=== PATIENT | male | born 1955 | race African-American/Black ===

== ENCOUNTER 2017-06-26 14:01 | Inpatient (IN) | payer OTHER ==
[2017-06-26] MEDS ORDERED: D50W 25 GM/50 ML SYRINGE IV PRN (15:33)
[2017-06-26] MEDS ORDERED: GLUCAGON 1 MG/VIAL IM PRN (15:33)
--- NOTE | 2017-06-26 15:47 | P.HP ---
Certification for Inpatient Patient admitted to: Inpatient With expected LOS: >2 Midnights Patient will require the following post-hospital care: None Practitioner: I am a practitioner with admitting privileges, knowledge of patient current condition, hospital course, and medical plan of care. Services: Services provided to patient in accordance with Admission requirements found in Title 42 Section 412.3 of the Code of Federal Regulations Patient History Date of Service: 06/26/17 Primary Care Provider: Jarrett Reason for admission: Chf exacerbation History of Present Illness: Patient is an office patient of [facility]. He has a history of diabetes, previous cva and HTN, and lower gi bleed. He has been having swelling of his entire body for the past 2 weeks. Since he has difficulty with transportation he was not able to make it in. He has not been able to lace up his shoes due to the swelling. His face is swollen. The patient has swelling of the scrotum as well. He has not been able to lie on his right side without shortness of breath. Allergies Corticosteroids (Glucocorticoids) Allergy (Verified 06/13/16 12:03) Anaphylaxis Home Medications: Amlodipine Besylate [Amlodipine Besylate] 10 mg PO DAILY 06/26/17 Gabapentin [Neurontin*] 300 mg PO TID 06/26/17 Spironolactone [Spironolactone] 25 mg PO DAILY 06/26/17 - Past Medical/Surgical History Diabetic: Yes -: HTN -: IDDM -: Arthritis -: high cholesterol -: cva- 2014 -: colonoscopy -: EGD - Family History Father -: Heart disease Mother -: Cancer - Social History Alcohol use: Yes CD- Drugs: Yes Caffeine use: Yes Review of Systems General: Weakness Respiratory: SOB with Excertion Cardiovascular: Chest Pain, Orthopnea, Edema (3+), Light Headedness Physical Examination - Physical Exam General: Alert, In no apparent distress, Moderate distress HEENT: Atraumatic, PERRLA, Mucous membr. moist/pink, EOMI, Sclerae nonicteric Neck: Supple, 2+ carotid pulse no bruit, No LAD, Without JVD or thyroid abnormality Respiratory: Clear to auscultation bilaterally, Diminished (in the lower lung field) Cardiovascular: Regular rate/rhythm, Normal S1 S2, Edema (of the face and legs) Gastrointestinal: Normal bowel sounds, No tenderness Musculoskeletal: No tenderness Integumentary: No rashes Neurological: Normal gait, Normal speech, Normal strength at 5/5 x4 extr, Normal tone, Normal affect Lymphatics: No axilla or inguinal lymphadenopathy Assessment and Plan - Problems (Diagnosis) (1) CHF (congestive heart failure) Onset Date: 04/08/17 Current Visit: No Status: Acute Plan: will need to check an echo. Start on 40units of lasix. Once we know his kidney function we can intensify diuretics. Will check an echocardiogram and consult Dr. Fofana. (2) Hyperlipidemia Current Visit: Yes Status: Acute Plan: continue atorvastatin. Will check a lipid profile. Qualifiers: Hyperlipidemia type: pure hypercholesterolemia Qualified Code(s): E78.00 - Pure hypercholesterolemia, unspecified; E78.0 - Pure hypercholesterolemia (3) Neuropathy Current Visit: Yes Status: Acute Plan: Most likely secondary to diabetes. Continue gabapentin (4) Diabetes Onset Date: 06/14/16 Current Visit: No Status: Acute Plan: Has been on levemir. Will start him on home dose. Add an insulin sliding scale. Check an a1c as we do not have a current one on file. 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
[2017-06-26] MEDS: INSULIN -REGULAR HUMAN 50 UNIT/0.5 ML ML SQ SCH ×2 (16:30→21:00)
--- NOTE | 2017-06-26 16:32 | RAD REPORT ---
EXAM DESCRIPTION: Justyn Pa And Lat (2 Views)06/26/2017 4:18 pm CLINICAL HISTORY: Shortness of breath COMPARISON: March 2017 FINDINGS: A small to moderate right pleural effusion is present with right basilar atelectasis. Mil d bilateral pulmonary opacities are seen. The heart is mildly enlarged. IMPRESSION: CHF
[2017-06-26] MEDS: ENOXAPARIN 30 MG/0.3 ML SQ SCH ×2 (17:00→17:10)
[2017-06-26] MEDS: FUROSEMIDE 40 MG/4 ML VIAL IV SCH (17:10)
[2017-06-26 17:14] LABS: Absolute Monocytes 0.7 K/uL (0.1-1.3); Hematocrit 18.2 % (39.6-49.0); MCH 21.1 pg (27.0-35.0); MCV 71.8 fL (80-100); MPV 9.5 fL (7.6-11.3); RBC Red Blood Cell Count 2.54 M/uL (4.33-5.43)
--- NOTE | 2017-06-26 17:27 | EKG ---
Test Date: 2017-06-26 Test Time: 15:51:40 Provider Relations Consultant: DOM MEASUREMENT RESULTS: Intervals: Rate: 92 DE: 174 QRSD: 86 QT: 366 QTc: 452 [place]: P: 58 DE: 174 QRS: -31 T: 75 INTERPRETIVE STATEMENTS: Normal sinus rhythm Left axis deviation Abnormal ECG Compared to ECG 04/04/2017 23:09:03 No significant changes Electronically Signed On 06-26-17 17:26:27 FLOOR GRINDER by Justo Fofana
[2017-06-26 17:40] VITALS: BMI 29.7
[2017-06-26 18:21] LABS: Urine Appearance CLEAR; Urine Bilirubin NEGATIVE (NEG); Urine Blood 1+ (NEG); Urine Color YELLOW; Urine Glucose NEGATIVE (NEG); Urine Microscopic Reflex ORDER UMIC; Urine Protein 3+ (NEG); Urine Specific Gravity 1.015 (1.005-1.030)
[2017-06-26 18:21] LABS: RBC Red Blood Cell Count 2.55 M/uL (4.33-5.43)
[2017-06-26] MEDS: HYDRALAZINE HCL 20 MG/ML VIAL IV PRN (18:32)
[2017-06-26 18:37] LABS: Barbiturates NEGATIVE; Benzodiazepines NEGATIVE; Cocaine POSITIVE; METHAMPHETAM NEGATIVE; Opiates NEGATIVE; Phencyclidine NEGATIVE; THC Cannibis NEGATIVE
[2017-06-26 19:13] LABS: Urine Bacteria <20 /HPF (NONE SEEN); Urine Culture Reflex Order NOT NEEDED; Urine RBC <5 /HPF (NONE SEEN)
[2017-06-26 19:42] LABS: Potassium 3.9 mEq/L (3.6-5.0)
[2017-06-26 19:45] LABS: Albumin 2.7 g/dL (3.2-5.5); Bilirubin Total 0.5 mg/dL (0.3-1.2); Protein, Total 6.1 g/dL (6.0-8.3)
[2017-06-26] MEDS ORDERED: NA CHLORIDE 0.9% 250 ML ONE (19:58)
[2017-06-26 20:23] LABS: Anisocytosis 2+; Blood Morphology Comment NOTED (NOT SEEN); Hypochromasia 2+; Platelet Estimate ADEQ; Poikilocytosis 1+; Polychromasia SLIGHT
--- NOTE | 2017-06-26 22:17 | RAD REPORT ---
EXAM DESCRIPTION: CT - Abdomen Pelvis Wo Contrast - 06/26/2017 10:08 pm CLINICAL HISTORY: Abdominal pain, CHF, GI bleed COMPARISON: May 2016 TECHNIQUE: Axial [address] imaging of the abdomen and pelvis was performed without IV contrast. No IV contrast was given because of allergy, abnormal renal function, patient refusal or physician re quest. Oral contrast was given. All CT scans are performed using dose optimization technique as appropriate and may include automated exposure control or mA/KV adjustment according to patient size. FINDINGS: Cardiomegaly is present without pericardial effusion. Moderate right-sided and small left- sided pleural effusions are present incompletely assessed. No focal liver lesion on noncontrast imaging. Spleen and pancreas also without acute finding on nonco ntrast imaging. Gallbladder assessment is limited. Gallbladder is contracted. No biliary tree dilatat ion. Gallstones can be occult. No hydronephrosis or suspicious renal mass. No significant adrenal finding. Isodense renal masses an d pyelonephritis cannot be excluded in the absence of IV contrast. Urinary bladder is fully contracte d around a [place] catheter. No dilated bowel loops or bowel wall thickening. No free air, free fluid or pneumatosis. Patient has a very pronounced fluid retention pattern in the peritoneal and sub cutaneous fatty tissues. No herni a, mass or bulky lymphadenopathy. No suspicious bony findings. IMPRESSION: Extensive fluid retention in the subcutaneous fatty tissues. Peritoneal fluid retention is also present. Patient has moderate right-sided and small left-sided pleural effusions. No acute GI process identifiable. No hydronephrosis. Isodense masses and pyelonephritis are not excluded. Urinary bladder is fully cont racted.
--- NOTE | 2017-06-26 22:46 | CON ---
Date of Consultation: 06/26/2017 Reason For Consultation: Anemia. Brief History Of Present Illness: The patient is a 61-year-old gentleman who presen ts from Dr. Farias's office with concerning findings of significant anemia discovered on routine jeramy p. Dr. Farias had seen the patient in this clinic earlier today and had noted the patient had signifi cant swelling consistent with an anasarca. The patient admits to taking crack cocaine quite heavily over the past few years. He has a history of diabetes, hypertension, arthritis, partial cavitary narda g mass, which was believed to be benign, who has had multiple episodes of recurrent severe anemia, ma naged by Dr. Jung. He denies any evidence of bleeding per rectum. No nausea, no vomiting. He martínez s have a remote history of hemoptysis in the past, but none in the past year or longer. He has had a n endoscopy and colonoscopy by his belief approximately [address] Jung, which did not dis cover any acute cause of gastrointestinal bleeding at that time. He has had difficulty with complian ce due to his drug history and difficulty getting to Dr. Farias's office for care and workup. During my examination, he admits to some bilateral lower extremity pain related to the swelling and some gen eralized abdominal pain due to the swelling as well. He states that he has been constipated and has not had a bowel movement in approximately 8 days prior to today. He did have a large voluminous mando l movement today at Dr. Farias's office, which was diarrhea by his report. He denies any blood in the stool at that time. He states he still feels better but continues to have some distention of his ab domen by his feeling. Past Medical History: Significant for diabetes, hypertension, arthritis, hypercholesterolemia, strok e in the past, partial cavitary lung mass, which is thought to be benign by pulmonary workup. Past Surgical History: Includes colonoscopy and EGD as of 1 year ago approximately. Family History: His father had heart disease. Mother had cancer. He admits to alcohol use. He den ies smoking cigarettes and does admit to crack cocaine use regularly. He states that the last time h e smoked was he believes about a week ago, but is unclear on the exact date. Review of Systems: He has some weakness and some shortness of breath with exertion and some lightheadedness with ambulat ion. Other than HPI, the remainder of the review of systems is negative. Physical Examination: Vital Signs: At the time of my examination, his vital signs are a temperature of 98.4, pulse is 86, respiratory rate 18, blood pressure 191/105. His oxygen saturations 100% on room air. General: He is awake, alert, and oriented. Psychiatric: He is appropriate and conversive. HEENT: He is normocephalic. His sclerae are anicteric. His mucous membranes are moist. His oropha rynx is clear. Neck: Supple. No JVD. Chest: Normal expansion and excursion. Cardiovascular: Regular rate and rhythm. Pulmonary: Decreased breath sounds bilaterally and there are fine rales bilaterally. Abdomen: Soft, mild distention. There is swelling from his nipple line down to the remainder of his body consistent with anasarca. The remainder of his abdominal exam is essentially benign. Extremities: He has significant pitting edema greater than 2+ pitting edema in bilateral lower extre mities extending all the way to the mid to upper abdomen and lower chest area. Skin: His skin is otherwise without lesions or rashes. Allergies: TO GLUCOCORTICOIDS/CORTICOSTEROIDS. Home Medications: Include amlodipine, Neurontin, and spironolactone. Laboratory Data: Reveals a white blood cell count of 9.6, hemoglobin is 5.4, hematocrit of 18.2. Hi s MCV is 71.8 that is low. His platelet count is 212. His neutrophils were pending at the time of t he examination. His percent retic was 2.83, that is on the high side. The remainder of his labs wer e post glucose of 118. Troponin I less than 0.03. His UA showed 3+ protein and currently, the remai nder is still pending. He is positive for his cocaine screen on this admission. He had imaging perf ormed which included a chest x-ray which was officially read as CHF, [id number] right pleural effusions present with right basilar atelectasis, mild bilateral pulmonary opacity seen. The heart i s mildly enlarged, consistent with CHF. Assessment And Plan: This is a 61-year-old gentleman with multiple medical problems , who presents with anasarca and abdominal pain and significant anemia. 1.Transfuse packed red blood cells and check serial H and Hs. He remains hemodynamically stable at this time and while he is receiving a large volume of blood products, he will likely require Lasix to help diurese much of the volume as he appears to have congestive heart failure with overload at this time. I recommend workup from a medical standpoint to better evaluate his cardiac status beginning with an EKG and echo. 2.Labs will be drawn including a CMP. 3.I recommend a CT abdomen and pelvis to evaluate the abdomen at this time, as he has a significant drop in his hemoglobin. This might be due to an intraabdominal bleed as currently unknown should his creatinine be in the range where it can be checked safely with contrast would be preferable. 4.Serial abdominal exams. 5.Continue workup for anemia. After he is resuscitated and has some baseline information, we will c onsider endoscopy at that time should we have any evidence of gastrointestinal source for his bleedin g. I have explained the risks, benefits, and alternatives of the above stated plan. The patient agr ees to proceed as indicated. Thank you for this interesting consult. AARON/ZULEIMA Voice ID: [id number] Report ID: [id number]
[2017-06-26] MEDS: ATORVASTATIN 80 MG TAB PO SCH (23:00)
[2017-06-26] MEDS: GABAPENTIN 300 MG CAP PO SCH (23:00)
[2017-06-27] MEDS: HYDRALAZINE HCL 20 MG/ML VIAL IV PRN ×4 (00:02→20:53)
[2017-06-27] MEDS ORDERED: FUROSEMIDE 40 MG/4 ML VIAL IV ONE (03:38)
[2017-06-27 05:26] LABS: Hematocrit 19.2 % (39.6-49.0)
[2017-06-27] MEDS ORDERED: NA CHLORIDE 0.9% 250 ML ONE ×3 (06:11→15:41)
[2017-06-27 07:04] LABS: Absolute Lymphocytes (CBC) 1.4 K/uL (0.7-4.9); Absolute Monocytes 0.7 K/uL (0.1-1.3); Absolute Neutrophil 6.7 K/uL (1.8-8.0); Basophils % 0.4 % (0-1.3); Eosinophils % 2.8 % (0-4.4); Lymphocytes % 15.7 % (15.3-44.8); MCH 22.8 pg (27.0-35.0); MCV 72.5 fL (80-100); MPV 9.7 fL (7.6-11.3); RBC Red Blood Cell Count 2.54 M/uL (4.33-5.43)
[2017-06-27 07:05] LABS: Hematocrit 18.4 % (39.6-49.0)
[2017-06-27 07:19] LABS: Albumin 2.6 g/dL (3.2-5.5); Bilirubin Total 0.4 mg/dL (0.3-1.2); Potassium 4.3 mEq/L (3.6-5.0); Protein, Total 5.7 g/dL (6.0-8.3)
[2017-06-27 07:25] LABS: Thyroid Stimulating Hormone 5.98 uIU/mL (0.34-5.60)
[2017-06-27] MEDS ORDERED: PANTOPRAZOLE 40MG TABLET PO SCH (07:30)
[2017-06-27] MEDS: INSULIN -REGULAR HUMAN 50 UNIT/0.5 ML ML SQ SCH ×4 (07:30→21:00)
[2017-06-27] MEDS: INSULIN DETEMIR 100 UNIT/1 ML INSULIN SQ SCH (08:00)
[2017-06-27] MEDS: SPIRONOLACTONE 25 MG TABLET PO SCH (08:12)
[2017-06-27] MEDS: GABAPENTIN 300 MG CAP PO SCH ×3 (08:14→20:53)
[2017-06-27] MEDS: AMLODIPINE 10 MG TAB PO SCH (08:15)
[2017-06-27] MEDS: FUROSEMIDE 40 MG/4 ML VIAL IV SCH (08:26)
--- NOTE | 2017-06-27 09:09 | P.PN ---
Subjective Date of Service: 06/27/17 Primary Care Provider: Jarrett Chief Complaint: Chf exacerbation Subjective: New changes (Patinet is complainint of leg pain) Review of Systems 10-point ROS is otherwise unremarkable Musculoskeletal: Leg Pain (swollen legs) Physical Examination - Vital Signs Temperature: 99.4 F Blood Pressure: 194/96 Pulse: 100 Respirations: 16 Pulse Ox (%): 95 - Physical Exam General: Alert, In no apparent distress HEENT: Atraumatic, PERRLA, EOMI Neck: Supple, JVD not distended Respiratory: Clear to auscultation bilaterally, Normal air movement Cardiovascular: Regular rate/rhythm, Normal S1 S2, Edema (2+) Gastrointestinal: Normal bowel sounds, No tenderness Musculoskeletal: No tenderness Integumentary: No rashes Neurological: Normal speech, Normal tone, Normal affect Lymphatics: No axilla or inguinal lymphadenopathy - Studies Laboratory Data (last 24 hrs) 06/27/17 05:55: Sodium 141, Potassium 4.3, BUN 25 H, Creatinine 1.86 H, Glucose 121 H, Total Bilirubin 0.4, AST 61 H, ALT 71 H, Alkaline Phosphatase 69, Triglycerides 51, Cholesterol 104, HDL Cholesterol 41, Cholesterol/HDL Ratio 2.54, Lipase 22 06/27/17 05:55: WBC 9.2, Hgb 5.8 L*, Hct 18.4 L*, Plt Count 180 06/27/17 05:00: Triglycerides Cancelled, Cholesterol Cancelled, HDL Cholesterol Cancelled, Cholesterol/HDL Ratio Cancelled, Lipase Cancelled 06/27/17 04:19: Hgb 5.9 L*, Hct 19.2 L* 06/26/17 19:00: Sodium 139, Potassium 3.9, BUN 23 H, Creatinine 1.89 H, Glucose 149 H, Total Bilirubin 0.5, AST 77 H, ALT 85 H, Alkaline Phosphatase 78 06/26/17 16:54: Troponin I < 0.03 06/26/17 16:54: WBC 9.6, Hgb 5.4 L*, Hct 18.2 L*, Plt Count 212 Assessment & Plan - Problems (Diagnosis) (1) CHF (congestive heart failure) Onset Date: 04/08/17 Current Visit: No Status: Acute Plan: Patient has been getting lasix with the blood. Has a echo in Which showed ef of 55% and pulm htn. However he has been using cocaine recently. The patient states that the last use was about 9 days ago. Qualifiers: Qualified Code(s): I50.9 - Heart failure, unspecified (2) Hyperlipidemia Current Visit: Yes Status: Acute Plan: continue atorvastatin. Will check a lipid profile. Qualifiers: Hyperlipidemia type: pure hypercholesterolemia Qualified Code(s): E78.00 - Pure hypercholesterolemia, unspecified; E78.0 - Pure hypercholesterolemia (3) Neuropathy Current Visit: Yes Status: Acute Plan: Most likely secondary to diabetes. Continue gabapentin (4) Diabetes Onset Date: 06/14/16 Current Visit: No Status: Acute Plan: Has been on levemir. Will start him on home dose. Add an insulin sliding scale. Check an a1c as we do not have a current one on file. Qualifiers: Diabetes mellitus type: type 2 Diabetes mellitus complication status: without complication Diabetes mellitus intermediate insulin use: with intermediate use Qualified Code(s): E11.9 - Type 2 diabetes mellitus without complications ; Z79.4 - shelter (current) use of insulin (5) Acute renal failure Current Visit: Yes Status: Acute Plan: Will monitor his creatine for now it is staying stable. However we do have to diuresis the patient in the coming days. Qualifiers: Acute renal failure type: unspecified Qualified Code(s): N17.9 - Acute kidney failure, unspecified (6) Anemia Onset Date: 09/05/15 Current Visit: No Status: Acute Plan: Will transfuse him again 2 more units. Have discussed the patient with Dr. Tan. Possible scope today. Qualifiers: Iron deficiency anemia type: unspecified iron deficiency (7) Cocaine abuse Onset Date: 04/08/17 Current Visit: No Status: Chronic Discharge Plan: Home Plan to discharge in: Greater than 2 days - Code Status/Comfort Care Code Status Assessed: No Code Status: Full Code Physician Review: Patient Assessed, Agree with Above Assessment and Plan Critical Care: No Time Spent Managing Pts Care (In Minutes): 35
[2017-06-27] MEDS ORDERED: NA CHLORIDE 0.9% 1,000 ML ONE (09:23)
[2017-06-27] MEDS ORDERED: LIDOCAINE 1% MPF 5 ML VIAL ONE (09:41)
[2017-06-27] MEDS ORDERED: GLYCOPYRROLATE 0.2 MG/ML SYR ONE ×2 (09:41)
[2017-06-27] MEDS ORDERED: ATROPINE SULFATE 1 MG/ML INJ ONE (09:41)
[2017-06-27] MEDS ORDERED: EPHEDRINE SULF 50 MG/ML SYR ONE (09:41)
[2017-06-27] MEDS ORDERED: PROPOFOL 200 MG/20 ML VIAL IV ONE (09:41)
[2017-06-27] MEDS ORDERED: Phenylephrine HCl 10 MG/ML 1 ML VIAL ONE (09:41)
[2017-06-27] MEDS ORDERED: NA CHLORIDE 0.9% 500 ML ONE (09:43)
--- NOTE | 2017-06-27 10:28 | CON ---
History Of Present Illness: Mr. Trejo has profound microcytic anemia. It is suspected to be due to a GI bleed. Bone marrow disease is not suspected. Bleeding source has not been identified. The sander logan came to the hospital with swelling, dyspnea, feeling terrible. He is found to have a lot of ed rhonda. He was found to have a hemoglobin of 5.4. It was about a month ago he had a transfusion. No i nterval hemoglobin since then. He has had his GI tract looked at before, but I think it needs to be done again. Dr. Farias is feeling that. Past Medical History: The patient has a history of diabetes, hypertension, and stroke. He does not have a history of congestive heart failure or coronary heart disease. He denies paroxysmal nocturnal dyspnea, edema of the abdomen, thighs, buttocks, scrotum, or legs. Medications: He takes amlodipine, gabapentin, spironolactone. Does not require any agents to contro l blood sugar. Physical Examination: Vital Signs: 5 feet 11 inches, 213 pounds. HEENT: Normal. Mild periorbital edema. Lungs: Clear. Heart: Regular rate and rhythm. No significant gallop or murmur or rub. Abdomen: Soft. Extremities: 2+ edema now. I think his weight has gone down a lot. Assessment And Plan: I think doing an echocardiogram is very likely to be helpful figuring out what is wrong with him. It will be done later today. At some point, he should probably have a nuclear st ress test. He does not have anything to suggest that needs to be done right at the moment. ARMEN Voice ID: [id number] Report ID: [id number]
[2017-06-27] MEDS: PANTOPRAZOLE INJ 80 MG in NA CHLORIDE 0.9% 250 ML IV SCH ×2 (12:30→21:04)
[2017-06-27 12:43] LABS: Hematocrit 21.4 % (39.6-49.0)
[2017-06-27] MEDS: MORPHINE 5 MG/ML VIAL IV PRN ×2 (13:37→21:04)
[2017-06-27] MEDS ORDERED: NA CHLORIDE 0.9% 0 ML ONE (15:53)
--- NOTE | 2017-06-27 17:04 | ECHO ---
HEIGHT: 5 ft 11 in WEIGHT: 213 lb 4.8 oz DATE OF STUDY: 06/27/[address]: Gerardo Farias MD 2-DIMENSIONAL: YES M.MODE: YES DOPPLER: YES COLOR FLOW: YES TDS: PORTABLE: DEFINITY: BUBBLE STUDY: DIAGNOSIS: CONGESTIVE HEART FAILURE CARDIAC HISTORY: CATHERIZATION: NO SURGERY: NO PROSTHETIC VALVE: NO PACEMAKER: NO MEASUREMENTS (cm) DIASTOLIC (NORMALS) SYSTOLIC (NORMALS) IVSd 1.4 (0.6-1.2) LA Diam 4.7 (1.9-4.0) LVEF 60-65% LVIDd 5.0 (3.5-5.7) LVIDs 3.8 (2.0-3.5) %FS 26% LVPWd 1.3 (0.6-1.2) Ao Diam 3.3 (2.0-3.7) 2 DIMENSIONAL ASSESSMENT: RIGHT ATRIUM: NORMAL LEFT ATRIUM: DILATED RIGHT VENTRICLE: NORMAL LEFT VENTRICLE: LEFT VENTRICULAR HYPERTROPHY TRICUSPID VALVE: NORMAL MITRAL VALVE: NORMAL PULMONIC VALVE: NORMAL AORTIC VALVE: NORMAL PERICARDIAL EFFUSION: NONE AORTIC ROOT: NORMAL LEFT VENTRICULAR WALL MOTION: NORMAL DOPPLER/COLOR FLOW: MILD MITRAL AND TRICUSPID REGURGITATION. ESTIMATED RIGHT VENTRICULAR SYSTOLIC PRESSURE 45 mmHg (MILD PULMONARY HYPERTENSION). COMMENTS: NORMAL LEFT VENTRICULAR EJECTION FRACTION. LEFT VENTRICULAR HYPERTROPHY. DILATED LEFT ATRIUM. MILD MITRAL AND TRICUSPID REGURGITATION. MILD PULMONARY HYPERTENSION. TECHNOLOGIST: EMANUEL HERMAN
[2017-06-27] MEDS: ATORVASTATIN 80 MG TAB PO SCH (20:53)
[2017-06-27] MEDS: GUAIFENESIN/DM 5 ML UCUP PO PRN (21:05)
[2017-06-27 22:00] LABS: Hematocrit 26.6 % (39.6-49.0)
[2017-06-28 04:20] LABS: Albumin 2.5 g/dL (3.2-5.5); Bilirubin Total 0.9 mg/dL (0.3-1.2); Potassium 4.1 mEq/L (3.6-5.0); Protein, Total 6.2 g/dL (6.0-8.3)
[2017-06-28 04:23] LABS: Absolute Lymphocytes (CBC) 1.3 K/uL (0.7-4.9); Absolute Monocytes 0.9 K/uL (0.1-1.3); Absolute Neutrophil 9.3 K/uL (1.8-8.0); Basophils % 0.6 % (0-1.3); Eosinophils % 2.1 % (0-4.4); Hematocrit 25.6 % (39.6-49.0); Lymphocytes % 10.9 % (15.3-44.8); MCH 23.4 pg (27.0-35.0); MCV 75.1 fL (80-100); MPV 9.8 fL (7.6-11.3); Monocytes % 7.9 % (3.3-12.3); RBC Red Blood Cell Count 3.41 M/uL (4.33-5.43)
[2017-06-28] MEDS: HYDRALAZINE HCL 20 MG/ML VIAL IV PRN ×2 (06:01→12:19)
[2017-06-28] MEDS: MORPHINE 5 MG/ML VIAL IV PRN ×4 (06:01→19:32)
[2017-06-28] MEDS: GUAIFENESIN/DM 5 ML UCUP PO PRN ×3 (06:03→21:56)
[2017-06-28] MEDS: INSULIN -REGULAR HUMAN 50 UNIT/0.5 ML ML SQ SCH ×4 (07:30→21:57)
[2017-06-28] MEDS: PANTOPRAZOLE INJ 80 MG in NA CHLORIDE 0.9% 250 ML IV SCH ×2 (07:55→19:36)
[2017-06-28] MEDS: INSULIN DETEMIR 100 UNIT/1 ML INSULIN SQ SCH (08:00)
--- NOTE | 2017-06-28 08:33 | P.PN ---
Subjective Date of Service: 06/28/17 Primary Care Provider: Jarrett Chief Complaint: Chf exacerbation Subjective: Improving (less swelling in the legs and hands) Review of Systems 10-point ROS is otherwise unremarkable Cardiovascular: Edema Physical Examination - Vital Signs Temperature: 98 F Blood Pressure: 175/88 Pulse: 84 Respirations: 20 Pulse Ox (%): 95 - Physical Exam General: Alert, In no apparent distress HEENT: Atraumatic, PERRLA, EOMI Neck: Supple, JVD not distended Respiratory: Clear to auscultation bilaterally, Normal air movement Cardiovascular: Regular rate/rhythm, Normal S1 S2 Gastrointestinal: Normal bowel sounds, No tenderness Musculoskeletal: No tenderness Integumentary: No rashes Neurological: Normal speech, Normal tone, Normal affect Lymphatics: No axilla or inguinal lymphadenopathy - Studies Laboratory Data (last 24 hrs) 06/28/17 04:00: Hgb Cancelled, Hct Cancelled 06/28/17 03:30: Sodium 137, Potassium 4.1, BUN 22 H, Creatinine 1.82 H, Glucose 112, Total Bilirubin 0.9, AST 45 H, ALT 55, Alkaline Phosphatase 67 06/28/17 03:30: WBC 11.8 H D, Hgb 8.0 L, Hct 25.6 L, Plt Count 196 06/27/17 : Hgb Cancelled 06/27/17 21:35: Hgb 8.7 L, Hct 26.6 L D 06/27/17 12:22: Hgb 6.8 L*, Hct 21.4 L D Assessment & Plan - Problems (Diagnosis) (1) Gastric ulcer Current Visit: Yes Status: Acute Plan: Seen on EGD. Will continue on protonix drip. Will transfuse as necessary. Will continue clear liquid diet. Qualifiers: Gastric ulcer chronicity: acute Gastric ulcer complication status: unspecified whether hemorrhage or perforation present Qualified Code(s): K25.3 - Acute gastric ulcer without hemorrhage or perforation (2) CHF (congestive heart failure) Onset Date: 04/08/17 Current Visit: Yes Status: Acute Plan: Patient has been getting lasix with the blood. Has a echo in [place]. Which showed ef of 55% and pulm htn. However he has been using cocaine recently. The patient states that the last use was about 9 days ago. Qualifiers: Qualified Code(s): I50.9 - Heart failure, unspecified (3) Hyperlipidemia Onset Date: 06/27/17 Current Visit: Yes Status: Acute Plan: continue atorvastatin. Will check a lipid profile. Qualifiers: Hyperlipidemia type: pure hypercholesterolemia Qualified Code(s): E78.00 - Pure hypercholesterolemia, unspecified; E78.0 - Pure hypercholesterolemia (4) Neuropathy Onset Date: 06/27/17 Current Visit: Yes Status: Acute Plan: Most likely secondary to diabetes. Continue gabapentin (5) Diabetes Onset Date: 06/14/16 Current Visit: No Status: Acute Plan: Has been on levemir. Will start him on home dose. Add an insulin sliding scale. Check an a1c as we do not have a current one on file. 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 Have discussed the patient with Dr. Tan. Possible scope today. Qualifiers: Iron deficiency anemia type: unspecified iron deficiency (8) Cocaine abuse Onset Date: 04/08/17 Current Visit: No Status: Chronic Discharge Plan: Home Plan to discharge in: 48 Hours - Code Status/Comfort Care Code Status Assessed: No Code Status: Full Code Physician Review: Patient Assessed, Agree with Above Assessment and Plan Critical Care: No Time Spent Managing Pts Care (In Minutes): 25
[2017-06-28] MEDS: AMLODIPINE 10 MG TAB PO SCH (10:01)
[2017-06-28] MEDS: FUROSEMIDE 40 MG/4 ML VIAL IV SCH (10:01)
[2017-06-28] MEDS: SPIRONOLACTONE 25 MG TABLET PO SCH (10:01)
[2017-06-28] MEDS: GABAPENTIN 300 MG CAP PO SCH ×3 (10:01→21:56)
--- NOTE | 2017-06-28 10:16 | P.PN ---
Subjective Date of Service: 06/28/17 Primary Care Provider: Jarrett Chief Complaint: Chf exacerbation Subjective: Improving (patient has no complaints, he had a normal bowel movement ) Physical Examination - Vital Signs Temperature: 98 F Blood Pressure: 175/88 Pulse: 84 Respirations: 20 Pulse Ox (%): 95 - Physical Exam General: Alert, In no apparent distress, Cooperative Respiratory: Clear to auscultation bilaterally Gastrointestinal: Normal bowel sounds - Studies Laboratory Data (last 24 hrs) 06/28/17 04:00: Hgb Cancelled, Hct Cancelled 06/28/17 03:30: Sodium 137, Potassium 4.1, BUN 22 H, Creatinine 1.82 H, Glucose 112, Total Bilirubin 0.9, AST 45 H, ALT 55, Alkaline Phosphatase 67 06/28/17 03:30: WBC 11.8 H D, Hgb 8.0 L, Hct 25.6 L, Plt Count 196 06/27/17 : Hgb Cancelled 06/27/17 21:35: Hgb 8.7 L, Hct 26.6 L D 06/27/17 12:22: Hgb 6.8 L*, Hct 21.4 L D Assessment And Plan - Plan - continue monitoring - large gastric ulcer, continue PPI - soft diet Physician Review: Patient Assessed, Agree with Above Assessment and Plan
[2017-06-28 12:21] LABS: Hematocrit 26.7 % (39.6-49.0)
[2017-06-28] MEDS: ATORVASTATIN 80 MG TAB PO SCH (21:56)
[2017-06-29] MEDS: MORPHINE 5 MG/ML VIAL IV PRN ×6 (01:31→22:40)
[2017-06-29 04:10] LABS: Hematocrit 23.6 % (39.6-49.0); MCH 23.8 pg (27.0-35.0); MCV 75.3 fL (80-100); RBC Red Blood Cell Count 3.14 M/uL (4.33-5.43)
[2017-06-29 04:11] LABS: Absolute Monocytes 0.9 K/uL (0.1-1.3); Absolute Neutrophil 5.7 K/uL (1.8-8.0); Basophils % 0.4 % (0-1.3); Eosinophils % 3.6 % (0-4.4); Lymphocytes % 12.8 % (15.3-44.8); MPV 9.1 fL (7.6-11.3); Monocytes % 11.1 % (3.3-12.3)
[2017-06-29 04:18] LABS: Albumin 2.4 g/dL (3.2-5.5); Bilirubin Total 0.4 mg/dL (0.3-1.2); Potassium 4.2 mEq/L (3.6-5.0); Protein, Total 5.6 g/dL (6.0-8.3)
[2017-06-29] MEDS: PANTOPRAZOLE INJ 80 MG in NA CHLORIDE 0.9% 250 ML IV SCH ×2 (05:25→14:46)
[2017-06-29] MEDS: GUAIFENESIN/DM 5 ML UCUP PO PRN ×2 (05:25→12:12)
[2017-06-29] MEDS: INSULIN -REGULAR HUMAN 50 UNIT/0.5 ML ML SQ SCH ×4 (07:30→21:02)
[2017-06-29] MEDS: INSULIN DETEMIR 100 UNIT/1 ML INSULIN SQ SCH (09:13)
[2017-06-29] MEDS: GABAPENTIN 300 MG CAP PO SCH ×3 (10:41→21:02)
[2017-06-29] MEDS: FUROSEMIDE 40 MG/4 ML VIAL IV SCH (10:41)
[2017-06-29] MEDS: AMLODIPINE 10 MG TAB PO SCH (10:41)
[2017-06-29] MEDS: SPIRONOLACTONE 25 MG TABLET PO SCH (10:41)
[2017-06-29] MEDS ORDERED: CALAMINE LOTION 180ML TOP PRN (11:32)
--- NOTE | 2017-06-29 11:37 | P.PN ---
Subjective Date of Service: 06/29/17 Primary Care Provider: Jarrett Chief Complaint: Chf exacerbation Subjective: New changes (Patient's hb is dropping slightly. He is still above 7 ) Review of Systems 10-point ROS is otherwise unremarkable Integumentary: Other (itching on the back of the neck) Physical Examination - Vital Signs Temperature: 98.4 F Blood Pressure: 178/89 Pulse: 84 Respirations: 16 Pulse Ox (%): 98 - Physical Exam General: Alert, In no apparent distress HEENT: Atraumatic, PERRLA, EOMI Neck: Supple, JVD not distended Respiratory: Clear to auscultation bilaterally, Normal air movement Cardiovascular: Regular rate/rhythm, Normal S1 S2 Gastrointestinal: Normal bowel sounds, No tenderness Musculoskeletal: No tenderness Integumentary: No rashes Neurological: Normal speech, Normal tone, Normal affect Lymphatics: No axilla or inguinal lymphadenopathy - Studies Laboratory Data (last 24 hrs) 06/29/17 04:00: Hgb Cancelled, Hct Cancelled 06/29/17 03:55: Sodium 135, Potassium 4.2, BUN 25 H, Creatinine 1.87 H, Glucose 152 H, Total Bilirubin 0.4, AST 39, ALT 41, Alkaline Phosphatase 64 06/29/17 03:55: WBC 7.9 D, Hgb 7.5 L*, Hct 23.6 L, Plt Count 175 06/28/17 19:44: Hgb 7.8 L*, Hct 24.0 L 06/28/17 11:44: Hgb 8.2 L, Hct 26.7 L Assessment And Plan - Current Problems (Diagnosis) (1) Gastric ulcer Current Visit: Yes Status: Acute Plan: continue protonix drip for now. Will continue monitoring his hct. Transfuse as needed Qualifiers: Gastric ulcer chronicity: acute Gastric ulcer complication status: unspecified whether hemorrhage or perforation present Qualified Code(s): K25.3 - Acute gastric ulcer without hemorrhage or perforation (2) CHF (congestive heart failure) Onset Date: 04/08/17 Current Visit: Yes Status: Acute Plan: Patient has been getting lasix with the blood. Has a echo in Mar. Which showed ef of 55% and pulm htn. However he has been using cocaine recently. The patient states that the last use was about 9 days ago. Will restart his spirnolactone for better bp control Qualifiers: Qualified Code(s): I50.9 - Heart failure, unspecified (3) Hyperlipidemia Onset Date: 06/27/17 Current Visit: Yes Status: Acute Plan: continue atorvastatin. Will check a lipid profile. Qualifiers: Hyperlipidemia type: pure hypercholesterolemia Qualified Code(s): E78.00 - Pure hypercholesterolemia, unspecified; E78.0 - Pure hypercholesterolemia (4) Neuropathy Onset Date: 06/27/17 Current Visit: Yes Status: Acute Plan: Most likely secondary to diabetes. Continue gabapentin (5) Diabetes Onset Date: 06/14/16 Current Visit: No Status: Acute Plan: Has been on levemir. Will start him on home dose. Add an insulin sliding scale. Check an a1c as we do not have a current one on file. Qualifiers: Diabetes mellitus type: type 2 Diabetes mellitus complication status: without complication Diabetes mellitus usp insulin use: with extermination inspector use Qualified Code(s): E11.9 - Type 2 diabetes mellitus without complications ; Z79.4 - USP (current) use of insulin (6) Acute renal failure Current Visit: Yes Status: Acute Plan: Creatine is stable will continue lasix Qualifiers: Acute renal failure type: unspecified Qualified Code(s): N17.9 - Acute kidney failure, unspecified (7) Anemia Onset Date: 09/05/15 Current Visit: No Status: Acute Plan: Will transfuse him again 2 more units. Have discussed the patient with Dr. Tan. Possible scope today. Qualifiers: Iron deficiency anemia type: unspecified iron deficiency (8) Cocaine abuse Onset Date: 04/08/17 Current Visit: No Status: Chronic Plan: Have discussed with the patient at length. Unfortunately a difficulty addiction. He needs follow up and out patient services. Which he does not have the transportation to take advantage of. Discharge Plan: Home Plan to discharge in: 48 Hours - Code Status/Comfort Care Code Status Assessed: No Code Status: Full Code Physician Review: Patient Assessed, Agree with Above Assessment and Plan Critical Care: No Time Spent Managing PTS Care (In Minutes): 25
[2017-06-29] MEDS: HYDRALAZINE HCL 20 MG/ML VIAL IV PRN (12:14)
[2017-06-29 13:00] LABS: Hematocrit 25.5 % (39.6-49.0)
[2017-06-29] MEDS: ATORVASTATIN 80 MG TAB PO SCH (21:02)
[2017-06-30] MEDS: PANTOPRAZOLE INJ 80 MG in NA CHLORIDE 0.9% 250 ML IV SCH ×2 (00:25→10:00)
[2017-06-30 00:40] LABS: Hematocrit 23.9 % (39.6-49.0)
[2017-06-30] MEDS: MORPHINE 5 MG/ML VIAL IV PRN ×4 (02:19→20:53)
[2017-06-30] MEDS: INSULIN -REGULAR HUMAN 50 UNIT/0.5 ML ML SQ SCH ×4 (07:30→21:00)
[2017-06-30] MEDS: INSULIN DETEMIR 100 UNIT/1 ML INSULIN SQ SCH (08:53)
[2017-06-30] MEDS: GUAIFENESIN/DM 5 ML UCUP PO PRN ×3 (08:55→20:55)
[2017-06-30] MEDS: AMLODIPINE 10 MG TAB PO SCH (08:56)
[2017-06-30] MEDS: GABAPENTIN 300 MG CAP PO SCH ×3 (08:56→20:53)
[2017-06-30] MEDS: SPIRONOLACTONE 25 MG TABLET PO SCH (08:56)
[2017-06-30] MEDS: FUROSEMIDE 40 MG/4 ML VIAL IV SCH (08:57)
[2017-06-30] MEDS: ATORVASTATIN 80 MG TAB PO SCH (20:53)
[2017-06-30] MEDS: HYDRALAZINE HCL 10 MG TABLET PO SCH (20:53)
[2017-07-01] MEDS: MORPHINE 5 MG/ML VIAL IV PRN ×4 (04:06→21:27)
[2017-07-01] MEDS: GUAIFENESIN/DM 5 ML UCUP PO PRN ×3 (04:06→17:09)
[2017-07-01 06:10] LABS: Albumin 2.4 g/dL (3.2-5.5); Bilirubin Total 0.5 mg/dL (0.3-1.2); Potassium 4.2 mEq/L (3.6-5.0); Protein, Total 5.7 g/dL (6.0-8.3)
[2017-07-01 06:12] LABS: Absolute Lymphocytes (CBC) 0.9 K/uL (0.7-4.9); Absolute Monocytes 0.9 K/uL (0.1-1.3); Absolute Neutrophil 6.5 K/uL (1.8-8.0); Basophils % 0.5 % (0-1.3); Eosinophils % 3.9 % (0-4.4); Hematocrit 25.6 % (39.6-49.0); Lymphocytes % 10.1 % (15.3-44.8); MCH 23.5 pg (27.0-35.0); MCV 75.3 fL (80-100); MPV 9.4 fL (7.6-11.3); Monocytes % 10.2 % (3.3-12.3); RBC Red Blood Cell Count 3.41 M/uL (4.33-5.43)
[2017-07-01] MEDS: PANTOPRAZOLE 40MG TABLET PO SCH (06:47)
[2017-07-01 07:09] LABS: Blood Morphology Comment NOTED (NOT SEEN); Platelet Estimate ADEQ; Urine White Blood Cell Casts OK
[2017-07-01 07:10] LABS: Anisocytosis 2+; Hypochromasia 1+; Poikilocytosis 1+
[2017-07-01] MEDS: INSULIN -REGULAR HUMAN 50 UNIT/0.5 ML ML SQ SCH ×4 (07:30→22:28)
[2017-07-01] MEDS: INSULIN DETEMIR 100 UNIT/1 ML INSULIN SQ SCH (08:00)
[2017-07-01] MEDS: SPIRONOLACTONE 25 MG TABLET PO SCH (09:11)
[2017-07-01] MEDS: FUROSEMIDE 40 MG/4 ML VIAL IV SCH (09:11)
[2017-07-01] MEDS: AMLODIPINE 10 MG TAB PO SCH (09:12)
[2017-07-01] MEDS: HYDRALAZINE HCL 10 MG TABLET PO SCH ×2 (09:12→21:27)
[2017-07-01] MEDS: GABAPENTIN 300 MG CAP PO SCH ×3 (09:12→21:27)
--- NOTE | 2017-07-01 09:32 | P.PN ---
Subjective Date of Service: 07/01/17 Primary Care Provider: Jarrett Chief Complaint: Anemia Subjective: Improving (Patient tolerated diet well, Hgb Stable, feels swollen, continues to have normal bowel function, non-bloody) Physical Examination - Vital Signs Temperature: 99.2 F Blood Pressure: 175/90 Pulse: 90 Respirations: 15 Pulse Ox (%): 98 - Physical Exam General: Alert, In no apparent distress, Oriented x3, Cooperative HEENT: Mucous membr. moist/pink Gastrointestinal: Soft and benign, No masses, No rebound, No guarding, Ascites - Studies Laboratory Data (last 24 hrs) 07/01/17 05:36: Sodium 137, Potassium 4.2, BUN 27 H, Creatinine 1.93 H, Glucose 82, Total Bilirubin 0.5, AST 37, ALT 32, Alkaline Phosphatase 62 07/01/17 05:36: WBC 8.6, Hgb 8.0 L, Hct 25.6 L, Plt Count 185 06/30/17 23:30: Hct Cancelled 06/30/17 11:30: Hct Cancelled Assessment And Plan - Plan - continue monitoring - large gastric ulcer, continue PPI - soft diet - hgb stable, hd stable, continue medical management per Dr. Farias - cedrick to NURIS on PPI from surgical standpoint Physician Review: Patient Assessed, Agree with Above Assessment and Plan
--- NOTE | 2017-07-01 10:21 | P.PN ---
Subjective Date of Service: 07/01/17 Primary Care Provider: Jarrett Chief Complaint: Anemia Subjective: No new changes Review of Systems 10-point ROS is otherwise unremarkable Cardiovascular: Edema Physical Examination - Vital Signs Temperature: 99.2 F Blood Pressure: 175/90 Pulse: 90 Respirations: 15 Pulse Ox (%): 98 - Physical Exam General: Alert, In no apparent distress HEENT: Atraumatic, PERRLA, EOMI Neck: Supple, JVD not distended Respiratory: Clear to auscultation bilaterally, Normal air movement Cardiovascular: Regular rate/rhythm, Normal S1 S2, Edema (1+ of the upper and lower extremities) Gastrointestinal: Normal bowel sounds, No tenderness Musculoskeletal: No tenderness Integumentary: No rashes Neurological: Normal speech, Normal tone, Normal affect Lymphatics: No axilla or inguinal lymphadenopathy - Studies Laboratory Data (last 24 hrs) 07/01/17 05:36: Sodium 137, Potassium 4.2, BUN 27 H, Creatinine 1.93 H, Glucose 82, Total Bilirubin 0.5, AST 37, ALT 32, Alkaline Phosphatase 62 07/01/17 05:36: WBC 8.6, Hgb 8.0 L, Hct 25.6 L, Plt Count 185 06/30/17 23:30: Hct Cancelled 06/30/17 11:30: Hct Cancelled Assessment & Plan - Problems (Diagnosis) (1) Gastric ulcer Current Visit: Yes Status: Acute Plan: ON bid protonix. HB is stable Qualifiers: Gastric ulcer chronicity: acute Gastric ulcer complication status: unspecified whether hemorrhage or perforation present Qualified Code(s): K25.3 - Acute gastric ulcer without hemorrhage or perforation (2) CHF (congestive heart failure) Onset Date: 04/08/17 Current Visit: Yes Status: Acute Plan: Will keep him for another day of diuresis. This is to prevent readmittion. He does have a history of non compliance and missed follow up. Will Get PT to ambulate the patient today Qualifiers: Qualified Code(s): I50.9 - Heart failure, unspecified (3) Hyperlipidemia Onset Date: 06/27/17 Current Visit: Yes Status: Acute Plan: continue atorvastatin. Will check a lipid profile. Qualifiers: Hyperlipidemia type: pure hypercholesterolemia Qualified Code(s): E78.00 - Pure hypercholesterolemia, unspecified; E78.0 - Pure hypercholesterolemia (4) Neuropathy Onset Date: 06/27/17 Current Visit: Yes Status: Acute Plan: Most likely secondary to diabetes. Continue gabapentin (5) Diabetes Onset Date: 06/14/16 Current Visit: No Status: Acute Plan: Has been on levemir. Will start him on home dose. Add an insulin sliding scale. Check an a1c as we do not have a current one on file. Qualifiers: Diabetes mellitus type: type 2 Diabetes mellitus complication status: without complication Diabetes mellitus orchard worker insulin use: with usp use Qualified Code(s): E11.9 - Type 2 diabetes mellitus without complications ; Z79.4 - import manager (current) use of insulin (6) Acute renal failure Current Visit: Yes Status: Acute Plan: Creatine is stable will continue lasix Qualifiers: Acute renal failure type: unspecified Qualified Code(s): N17.9 - Acute kidney failure, unspecified (7) Anemia Onset Date: 09/05/15 Current Visit: No Status: Acute Plan: Will transfuse him again 2 more units. Have discussed the patient with Dr. Tan. Possible scope today. Qualifiers: Iron deficiency anemia type: unspecified iron deficiency (8) Cocaine abuse Onset Date: 04/08/17 Current Visit: No Status: Chronic Plan: Have discussed with the patient at length. Unfortunately a difficulty addiction. He needs follow up and out patient services. Which he does not have the transportation to take advantage of. Discharge Plan: Home Plan to discharge in: 24 Hours - Code Status/Comfort Care Code Status Assessed: No Code Status: Full Code Physician Review: Patient Assessed, Agree with Above Assessment and Plan Critical Care: No Time Spent Managing Pts Care (In Minutes): 20
[2017-07-01] MEDS: ATORVASTATIN 80 MG TAB PO SCH (21:27)
[2017-07-02] MEDS: MORPHINE 5 MG/ML VIAL IV PRN ×2 (03:55→09:16)
[2017-07-02] MEDS: GUAIFENESIN/DM 5 ML UCUP PO PRN ×2 (03:56→12:08)
[2017-07-02 05:51] LABS: Absolute Monocytes 0.9 K/uL (0.1-1.3); Eosinophils % 4.1 % (0-4.4)
[2017-07-02 06:03] LABS: Absolute Lymphocytes (CBC) 1.2 K/uL (0.7-4.9); Absolute Neutrophil 5.2 K/uL (1.8-8.0); Basophils % 1.1 % (0-1.3); Hematocrit 25.6 % (39.6-49.0); Lymphocytes % 15.1 % (15.3-44.8); MCH 23.2 pg (27.0-35.0); MCV 75.3 fL (80-100); MPV 9.4 fL (7.6-11.3); Monocytes % 11.5 % (3.3-12.3)
[2017-07-02] MEDS: PANTOPRAZOLE 40MG TABLET PO SCH (06:10)
[2017-07-02] MEDS: INSULIN -REGULAR HUMAN 50 UNIT/0.5 ML ML SQ SCH ×4 (07:30→21:19)
[2017-07-02 07:38] LABS: Albumin 2.5 g/dL (3.2-5.5); Bilirubin Total 0.6 mg/dL (0.3-1.2); Potassium 4.2 mEq/L (3.6-5.0); Protein, Total 5.8 g/dL (6.0-8.3)
[2017-07-02] MEDS: INSULIN DETEMIR 100 UNIT/1 ML INSULIN SQ SCH (09:10)
[2017-07-02] MEDS: HYDRALAZINE HCL 10 MG TABLET PO SCH ×2 (09:11→21:18)
[2017-07-02] MEDS: GABAPENTIN 300 MG CAP PO SCH ×3 (09:11→21:18)
[2017-07-02] MEDS: SPIRONOLACTONE 25 MG TABLET PO SCH (09:11)
[2017-07-02] MEDS: FUROSEMIDE 40 MG/4 ML VIAL IV SCH (09:11)
[2017-07-02] MEDS: AMLODIPINE 10 MG TAB PO SCH (09:11)
--- NOTE | 2017-07-02 09:23 | P.PN ---
Subjective Date of Service: 07/02/17 Primary Care Provider: Jarrett Chief Complaint: Anemia Subjective: New changes (slight drop in his hb) Review of Systems 10-point ROS is otherwise unremarkable General: Weakness Physical Examination - Vital Signs Temperature: 97.7 F Blood Pressure: 167/81 Pulse: 79 Respirations: 18 Pulse Ox (%): 98 - Physical Exam General: Alert, In no apparent distress HEENT: Atraumatic, PERRLA, EOMI Neck: Supple, JVD not distended Respiratory: Clear to auscultation bilaterally, Normal air movement Cardiovascular: Regular rate/rhythm, Normal S1 S2 Gastrointestinal: Normal bowel sounds, No tenderness Musculoskeletal: No tenderness, Swelling (of the left arm in comparison to the right) Integumentary: No rashes Neurological: Normal speech, Normal tone, Normal affect Lymphatics: No axilla or inguinal lymphadenopathy - Studies Laboratory Data (last 24 hrs) 07/02/17 06:57: Sodium 136, Potassium 4.2, BUN 28 H, Creatinine 1.85 H, Glucose 93, Total Bilirubin 0.6, AST 39, ALT 30, Alkaline Phosphatase 66 07/02/17 05:34: WBC 7.7, Hgb 7.9 L*, Hct 25.6 L, Plt Count 179 Assessment & Plan - Problems (Diagnosis) (1) Gastric ulcer Current Visit: Yes Status: Acute Plan: ON bid protonix. HB has dropped to 7.9. Thought this is not meet the need for transfusion. The patient normally goes home. Does not follow up and get readmitted. Will try to get him above 8 before discharging him. Especially as he may still be using cocaine. Which can precipitate a bleed of the gastric ulcer. Qualifiers: Gastric ulcer chronicity: acute Gastric ulcer complication status: unspecified whether hemorrhage or perforation present Qualified Code(s): K25.3 - Acute gastric ulcer without hemorrhage or perforation (2) CHF (congestive heart failure) Onset Date: 04/08/17 Current Visit: Yes Status: Acute Plan: Continue diuresis. Will give a extra dose of lasix with his unit of PRBC. Qualifiers: Qualified Code(s): I50.9 - Heart failure, unspecified (3) Hyperlipidemia Onset Date: 06/27/17 Current Visit: Yes Status: Acute Plan: continue atorvastatin. Will check a lipid profile. Qualifiers: Hyperlipidemia type: pure hypercholesterolemia Qualified Code(s): E78.00 - Pure hypercholesterolemia, unspecified; E78.0 - Pure hypercholesterolemia (4) Neuropathy Onset Date: 06/27/17 Current Visit: Yes Status: Acute Plan: Most likely secondary to diabetes. Continue gabapentin (5) Diabetes Onset Date: 06/14/16 Current Visit: No Status: Acute Plan: Has been on levemir. Will start him on home dose. Add an insulin sliding scale. Check an a1c as we do not have a current one on file. Qualifiers: Diabetes mellitus type: type 2 Diabetes mellitus complication status: without complication Diabetes mellitus prison insulin use: with prison use Qualified Code(s): E11.9 - Type 2 diabetes mellitus without complications ; Z79.4 - penitentiary (current) use of insulin (6) Acute renal failure Current Visit: Yes Status: Acute Plan: Creatine is stable will continue lasix Qualifiers: Acute renal failure type: unspecified Qualified Code(s): N17.9 - Acute kidney failure, unspecified (7) Anemia Onset Date: 09/05/15 Current Visit: No Status: Acute Plan: Will transfuse him again 2 more units. Have discussed the patient with Dr. Tan. Possible scope today. Qualifiers: Iron deficiency anemia type: unspecified iron deficiency (8) Cocaine abuse Onset Date: 04/08/17 Current Visit: No Status: Chronic Plan: Have discussed with the patient at length. Unfortunately a difficulty addiction. He needs follow up and out patient services. Which he does not have the transportation to take advantage of. (9) Swelling of left upper extremity Current Visit: Yes Status: Acute Plan: in relation to the right arm. Will check a venous duplex of the left arm Discharge Plan: Home Plan to discharge in: 24 Hours - Code Status/Comfort Care Code Status Assessed: No Code Status: Full Code Physician Review: Patient Assessed, Agree with Above Assessment and Plan Critical Care: No Time Spent Managing Pts Care (In Minutes): 30
--- NOTE | 2017-07-02 11:02 | RAD REPORT ---
EXAM DESCRIPTION: VAS - Extremity Venous Uni Ltd - 07/02/2017 10:46 am CLINICAL HISTORY: Left arm swelling. COMPARISON: None. FINDINGS: Left upper extremity venous system was interrogated with Doppler technique. Normal flow, c ompressibility and augmentation was noted. There is no DVT present. IMPRESSION: No evidence of left upper extremity deep venous thrombosis.
[2017-07-02] MEDS: MORPHINE 4 MG/ML SYR IV PRN ×3 (12:08→21:18)
[2017-07-02] MEDS ORDERED: NA CHLORIDE 0.9% 250 ML ONE (14:08)
[2017-07-02] MEDS ORDERED: ENOXAPARIN 30 MG/0.3 ML SQ SCH (17:00)
[2017-07-02] MEDS: ATORVASTATIN 80 MG TAB PO SCH (21:18)
[2017-07-02 21:26] LABS: Hematocrit 26.1 % (39.6-49.0)
[2017-07-03] MEDS: MORPHINE 4 MG/ML SYR IV PRN (03:57)
[2017-07-03] MEDS: HYDRALAZINE HCL 20 MG/ML VIAL IV PRN (03:58)
[2017-07-03 04:41] VITALS: O2SAT 96
[2017-07-03 06:17] LABS: Absolute Neutrophil 4.7 K/uL (1.8-8.0); Basophils % 0.7 % (0-1.3); Eosinophils % 3.6 % (0-4.4); Hematocrit 26.9 % (39.6-49.0); Lymphocytes % 14.8 % (15.3-44.8); MCH 23.8 pg (27.0-35.0); MCV 76.5 fL (80-100); MPV 9.3 fL (7.6-11.3); Monocytes % 14.1 % (3.3-12.3); RBC Red Blood Cell Count 3.51 M/uL (4.33-5.43)
[2017-07-03] MEDS: PANTOPRAZOLE 40MG TABLET PO SCH (06:34)
[2017-07-03 06:44] LABS: Albumin 2.6 g/dL (3.2-5.5); Bilirubin Total 0.3 mg/dL (0.3-1.2); Potassium 4.6 mEq/L (3.6-5.0); Protein, Total 5.9 g/dL (6.0-8.3)
[2017-07-03 06:52] LABS: Anisocytosis 2+; Blood Morphology Comment NOTED (NOT SEEN); Hypochromasia 1+; Platelet Estimate ADEQ; Urine White Blood Cell Casts OK
[2017-07-03] MEDS: INSULIN -REGULAR HUMAN 50 UNIT/0.5 ML ML SQ SCH (07:30)
[2017-07-03] MEDS: INSULIN DETEMIR 100 UNIT/1 ML INSULIN SQ SCH (08:00)
[2017-07-03 08:26] VITALS: TEMP 97.9
[2017-07-03] MEDS: GUAIFENESIN/DM 5 ML UCUP PO PRN (10:01)
[2017-07-03] MEDS: GABAPENTIN 300 MG CAP PO SCH (10:03)
[2017-07-03] MEDS: HYDRALAZINE HCL 10 MG TABLET PO SCH (10:03)
[2017-07-03] MEDS: AMLODIPINE 10 MG TAB PO SCH (10:03)
[2017-07-03] MEDS: SPIRONOLACTONE 25 MG TABLET PO SCH (10:03)
[2017-07-03] MEDS: FUROSEMIDE 40 MG/4 ML VIAL IV SCH (10:04)
--- NOTE | 2017-07-03 10:12 | P.DS ---
Admission Date: 06/26/17 Discharge Date: 07/03/17 Primary Care Provider: Jarrett Disposition: ROUTINE DISCHARGE Discharge Condition: GOOD Reason for Admission: Anemia - Problems (1) Gastric ulcer Current Visit: Yes Status: Acute Qualifiers: Gastric ulcer chronicity: acute Gastric ulcer complication status: unspecified whether hemorrhage or perforation present Qualified Code(s): K25.3 - Acute gastric ulcer without hemorrhage or perforation (2) CHF (congestive heart failure) Onset Date: 04/08/17 Current Visit: Yes Status: Acute Qualifiers: Qualified Code(s): I50.9 - Heart failure, unspecified (3) Hyperlipidemia Onset Date: 06/27/17 Current Visit: Yes Status: Acute Qualifiers: Hyperlipidemia type: pure hypercholesterolemia Qualified Code(s): E78.00 - Pure hypercholesterolemia, unspecified; E78.0 - Pure hypercholesterolemia (4) Neuropathy Onset Date: 06/27/17 Current Visit: Yes Status: Acute (5) Diabetes Onset Date: 06/14/16 Current Visit: No Status: Acute Qualifiers: Diabetes mellitus type: type 2 Diabetes mellitus complication status: without complication Diabetes mellitus intermediate project manager insulin use: with fpc use Qualified Code(s): E11.9 - Type 2 diabetes mellitus without complications ; Z79.4 - computer terminal operator (current) use of insulin (6) Acute renal failure Current Visit: Yes Status: Acute Qualifiers: Acute renal failure type: unspecified Qualified Code(s): N17.9 - Acute kidney failure, unspecified (7) Anemia Onset Date: 09/05/15 Current Visit: No Status: Acute Qualifiers: Iron deficiency anemia type: unspecified iron deficiency (8) Cocaine abuse Onset Date: 04/08/17 Current Visit: No Status: Chronic (9) Swelling of left upper extremity Current Visit: Yes Status: Acute Brief History of Present Illness: 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 He has a history of diabetes, previous cva and HTN, and lower gi bleed. He has been having swelling of his entire body for the past 2 weeks. Since he has difficulty with transportation he was not able to make it in. He has not been able to lace up his shoes due to the swelling. His face is swollen. The patient has swelling of the scrotum as well. He has not been able to lie on his right side without shortness of breath. Hospital Course: Patient was admitted from the office for generalized ansarca. He did admit to cocaine use. Had a large ulcer on egd with Dr. Tan. He responded well to lasix. HB stayed on the low side. Recieved a total of 5 units. Was not able to anticoagulate due to the ulcer. He also could not tolerate scd due to swelling of his legs. He is doing better. Will discharge him home. Several times warned him about cocaine worsening heart failure and gastric ulcers. Hopefully he will be able to manage his addiction. Vital Signs/Physical Exam: Temp Pulse Resp BP Pulse Ox 97.9 F 86 18 155/74 H 98 07/03/17 08:00 07/03/17 10:04 07/03/17 08:00 07/03/17 10:04 07/03/17 08:00 Laboratory Data at Discharge: WBC 7.1 K/uL (4.3-10.9) 07/03/17 05:43 Hgb 8.4 g/dL (13.6-17.9) L 07/03/17 05:43 Hct 26.9 % (39.6-49.0) L 07/03/17 05:43 Plt Count 167 K/uL (152-406) 07/03/17 05:43 Sodium 141 mEq/L (135-145) 07/03/17 05:43 Potassium 4.6 mEq/L (3.6-5.0) 07/03/17 05:43 BUN 29 mg/dL (6-20) H 07/03/17 05:43 Creatinine 2.02 mg/dL (0.61-1.24) H 07/03/17 05:43 Glucose 88 mg/dL (65-120) 07/03/17 05:43 Total Bilirubin 0.3 mg/dL (0.3-1.2) 07/03/17 05:43 AST 48 IU/L (10-42) H 07/03/17 05:43 ALT 31 IU/L (10-60) 07/03/17 05:43 Alkaline Phosphatase 71 IU/L (42-121) 07/03/17 05:43 Troponin I < 0.03 ng/mL (<0.03) 06/26/17 16:54 Triglycerides 51 mg/dL (35-160) 06/27/17 05:55 Cholesterol 104 mg/dL (<200) 06/27/17 05:55 HDL Cholesterol 41 mg/dL (27-67) 06/27/17 05:55 Cholesterol/HDL Ratio 2.54 06/27/17 05:55 Lipase 22 U/L (22-51) 06/27/17 05:55 Home Medications: Amlodipine Besylate [Amlodipine Besylate] 10 mg PO DAILY 06/26/17 Gabapentin [Neurontin*] 300 mg PO TID 06/26/17 Spironolactone [Spironolactone] 25 mg PO DAILY 06/26/17 Furosemide [Lasix] 40 mg PO DAILY #30 tablet 07/03/17 New Medications: Furosemide [Lasix] 40 mg PO DAILY #30 tablet
[2017-07-03] MEDS ORDERED: FUROSEMIDE 40 MG/4 ML VIAL IV ONE (16:00)
[2017-07-03 16:11] VITALS: BP 164/86
--- NOTE | 2017-08-06 08:34 | ENDO RPT ---
[address], [address] EGD PROCEDURE REPORT EXAM DATE: 06/27/2017 PATIENT NAME: Billy Trejo MR#: [id number] BIRTHDATE: 1955 ATTENDING: Miles Tan DR STATUS: inpatient - 7 TUBER OPERATOR: Melinda Moe RN and Efrain Benjamin [facility] INDICATIONS: The patient is a 61 yr old Male here for an EGD due to anemia and epigastric pain PROCEDURE PERFORMED: EGD with biopsy for H. pylori MEDICATIONS: Per Anesthesia. TOPICAL ANESTHETIC: none CONSENT: The patient understands the risks and benefits of the procedure and understands that these risks include, but are not limited to: sedation, allergic reaction, infection, perforation and/or bleeding. Alternative means of evaluation and treatment include, among others: physical exam, x-rays, and/or surgical intervention. The patient elects to proceed with this endoscopic procedure. DESCRIPTION OF PROCEDURE: During intra-op preparation period all mechanical medical equipment was checked for proper function. Hand hygiene and appropriate measures for infection prevention was taken. Procedure, possible complications, and alternatives including but not limited to the possibility of bleeding, perforation, tear, infection, sepsis, need for surgery, need for blood transfusion, and anesthesia related complications were explained to the patient. After the risks, benefits and alternatives of the procedure were thoroughly explained, Informed consent was verified, confirmed and timeout was successfully executed by the treatment team. The patient was placed in the left lateral position. The patient was anesthetized with topical anesthesia. Through the anesthetized oropharyngeal area, the scope was passed without any difficulty. The Pentax EG-[id number] ([id number]) endoscope was introduced through the mouth and advanced to the second portion of the duodenum. Retroflexed views revealed a moderate sized hiatal hernia. The gastroscope was then slowly withdrawn and removed. A large ulcer was found in the body of the stomach. There was no active bleeding, no visible vessel or adherant clot. A biopsy for H. pylori was taken from multiple regions of the stomach and duodenum. Multiple biopsies were obtained and sent to pathology. Duodenitis was found in the first and 2nd portion of the duodenum. A biopsy for H. pylori was taken as well. ADVERSE EVENTS: There were no complications. IMPRESSIONS: 1. An ulcer was found in the body of the stomach - no visible vessel, clot or sequelae of recent bleeding. 2. Duodenitis was found in the first portion of the duodenum RECOMMENDATIONS: 1. anti-reflux regimen 2. acid suppression therapy 3. await biopsy results 4. follow-up of helicobacter pylori status, treat if indicated 5. hematocrit REPEAT EXAM: Miles Tan DR eSigned: Miles Tan DR 06/27/2017 10:39 AM cc: CPT CODES: ICD9 CODES: PATIENT NAME: Billy Trejo MR#: [id number]
--- NOTE | 2017-08-06 10:30 | P.OP ---
Preoperative diagnosis: Need for Venous access Postoperative diagnosis: Need for Venous access Primary procedure: Placement of Femoral Central Venous Line Anesthesia: 1% lidocaine Estimated blood loss: <5cc Specimen: none Findings: dark red non-pulsatile blood returned Complications: None Transferred to: Other (floor room) Condition: Good
--- NOTE | 2017-08-06 21:09 | OP ---
Date of Procedure: 07/29/2017 Surgeon: Miles Tan MD, Preoperative Diagnosis: Need for venous access. Postoperative Diagnosis: Need for venous access. Procedure Performed: Placement of a left femoral central venous catheter. Anesthesia: Local 1% lidocaine used. Estimated Blood Loss: 10 cc. Specimen: None. Findings: Dark red nonpulsatile blood return. Complications: None. The patient remained in floor room in good condition throughout the procedure. Procedure In Detail: After informed consent was obtained, the patient was prepped and draped in the usual sterile fashion in the room. After appropriately anesthetizing the left groin region, I used a microintroducer set and ultrasound guidance to cannulate the left femoral vein on the first attempt. I then placed the guidewire in using Seldinger technique. I made a small incision in the area and sequentially dilated up the tract until the standard wire was passed using the introducer sheath. introducer sheath was then removed and the standard wire was left in place. The wire-out was rosa d for the micro wire. I then used sequential dilatation and placed the femoral catheter under direct visualization without evidence of complication and a wire-out was called once again. Dark red nonpul satile blood was returned and the device was secured to the skin and sterile dressing was placed over top. The patient tolerated the procedure well without evidence of complication and remained in room throughout the procedure. All counts were correct at the end of case. AARON/ZULEIMA Voice ID: [id number] Report ID: [id number]
== END 2017-07-03 11:47 | disposition home or self-care (01) | DRG 292 ==
LOC: 4TH 14:31
PROVIDERS: ADMIT Internal Medicine; ATTEND Internal Medicine
DX: N17.9 Acute kidney failure, unspecified; I10 Essential (primary) hypertension; N50.89 Other specified disorders of the male genital organs; D64.9 Anemia, unspecified; E78.5 Hyperlipidemia, unspecified; I50.9 Heart failure, unspecified; E11.40 Type 2 diabetes mellitus with diabetic neuropathy, unspecified; K25.3 Acute gastric ulcer without hemorrhage or perforation; F14.10 Cocaine abuse, uncomplicated; M19.90 Unspecified osteoarthritis, unspecified site; E78.00 Pure hypercholesterolemia, unspecified; D50.9 Iron deficiency anemia, unspecified
CPT/HCPCS: 36415; 71046; 74176; 80053; 80061; 80307; 81003; 81015; 82962; 83605; 83690; 84439; 84443; 84484; 85014; 85018; 85025; 85044; 86850; 86900; 86901; 88305; 88312; 93005; 93306; 93971; 97163; C9113; J0360; J0461; J1650; J2270; J2370; J7030; P9016

== ENCOUNTER 2017-08-26 14:28 | Emergency (ER) | payer OTHER ==
--- NOTE | 2017-08-26 14:56 | ER ---
Nurse's Notes [facility] Name: Billy Trejo Age: 62 yrs Sex: Male : 1955 Arrival Date: 08/26/2017 Time: 14:30 Bed 26 Private MD: Diagnosis: Uncontrolled Hypertension. Presentation: 08/26 14:30 Presenting complaint: EMS states: patient was being seeing by gastroenterology today kr2 and upon checking his vitals they saw that he had a blood pressure in the 200's/100's. His primary doctor told them to send him to the hospital. His blood glucose was 135, blood pressure 212/130, pulse 67 and oxygen saturation 98% on room air. He says he has been having shortness of breath, weakness and dizziness for 1 week. He has been newly diagnosed with Hepatitis C. Transition of care: patient was received from another setting of care (ambulatory specialty care practice), Gastroenterology. Onset of symptoms was August 19, 2017. Initial Sepsis Screen: Does the patient meet any 2 criteria? No. Patient's initial sepsis screen is negative. Does the patient have a suspected source of infection? No. Patient initial sepsis screen negative. Care prior to arrival: None. 14:30 Method Of Arrival: EMS: [facility] kr2 14:30 Acuity: BRAD 3 kr2 14:30 Note Patient refused to answer historical questions or questions regarding his health. kr2 States he does not want any treatments or IV's. Physician notified. Triage Assessment: 14:37 General: Appears in no apparent distress. uncomfortable, unkempt, Behavior is calm, kr2 flat, quiet, Patient states he does not want to be treated for anything. He reports he has been told by his doctor he only has 3-6 months to live. . Pain: Complains of pain in lower abdomen and right leg Pain currently is 5 out of 10 on a pain scale. Quality of pain is described as patient would not describe Pain began gradually, Is continuous, Alleviated by nothing. EENT: Oral mucosa is dry. Neuro: Level of Consciousness is awake, alert, Oriented to person, place, time, situation. Cardiovascular: Patient's skin is warm and dry. Edema is 2+ to left ankle, left foot, right ankle and right foot Rhythm is sinus rhythm Chest pain is denied. Respiratory: Airway is patent Respiratory effort is even, unlabored, Respiratory pattern is regular, symmetrical. GI: Abdomen is round non-distended. : No signs and/or symptoms were reported regarding the genitourinary system. Derm: Skin is intact, Skin is pink, warm \T\ dry. Musculoskeletal: Circulation, motion, and sensation intact. - Social history:: Smoking status: unknown. Screenin:36 Abuse screen: Denies threats or abuse. Denies injuries from another. Nutritional kr2 screening: No deficits noted. Tuberculosis screening: No symptoms or risk factors identified. Fall Risk Gait- Weak (10 pts.). Assessment: 14:45 Reassessment: Patient refused treatment after being seen by Dr. Spangler and the risk of kr2 leaving without treatment were explained by both myself and the physician. Refused to sign AMA form. Assisted patient to lobby per his request. Vital Signs: 14:20 BP 204 / 120; Pulse 68; Resp 17; Temp 98; Pulse Ox 99% on R/A; Pain 3/10; kr2 ED Course: 14:30 Patient arrived in ED. kr2 14:30 Arm band placed on. kr2 14:33 Rivas Spangler MD is Attending Physician. ps1 14:36 Triage completed. kr2 Administered Medications: No medications were administered Outcome: 15:00 AMA Other Patient refused to sign form kr2 15:06 Patient left the ED. kr2 Signatures: Simin Lee RN RN kr2 Rivas Spangler MD MD ps1 Corrections: (The following items were deleted from the chart) 15:06 14:30 Care prior to arrival: None. kr2 kr2
--- NOTE | 2017-08-26 14:56 | EDPHYS ---
Physician Documentation [facility] Name: Billy Trejo Age: 62 yrs Sex: Male : 1955 Arrival Date: 08/26/2017 Time: 14:30 Bed 26 Private MD: ED Physician Rivas Spangler HPI: 08/26 14:51 This 62 yrs old Black Male presents to ER via EMS with complaints of High Blood ps1 Pressure. 14:51 The patient has elevated blood pressure and discovered this at a physician's office, ps1 and sent to the emergency department for evaluation. Onset: The symptoms/episode began/occurred long standing on multiple medications. Severity of symptoms: At its worst the blood pressure was 204 mm Hg, in the emergency department the blood pressure is unchanged. The patient has experienced similar episodes in the past. The patient has been recently seen by a physician: the patient's primary care provider, Dr. Jung saw Jarrett during recent admission. Patient with recent admission. told that he has Hep C. States that he does not want to be evaluated or treated or poked or anything. He just wants his [facility] blood pressure medication list and to be left alone. . - Social history:: Smoking status: unknown. ROS: 14:51 Constitutional: Negative for fever, chills, and weight loss, Eyes: Negative for injury, ps1 pain, redness, and discharge, Neck: Negative for injury, pain, and swelling, Cardiovascular: Negative for chest pain, palpitations, and edema, Abdomen/GI: Negative for abdominal pain, nausea, vomiting, diarrhea, and constipation, Back: Negative for injury and pain, MS/Extremity: Negative for injury and deformity, Skin: Negative for injury, rash, and discoloration, Neuro: Negative for headache, weakness, numbness, tingling, and seizure. 14:51 Respiratory: Positive for shortness of breath. ps1 Exam: 14:51 Constitutional: This is a well developed, well nourished patient who is awake, alert, ps1 and in no acute distress. Head/Face: Normocephalic, atraumatic. Neck: Trachea midline, no thyromegaly or masses palpated, and no cervical lymphadenopathy. Supple, full range of motion without nuchal rigidity, or vertebral point tenderness. No Meningismus. Chest/axilla: Normal chest wall appearance and motion. Nontender with no deformity. No lesions are appreciated. Cardiovascular: Regular rate and rhythm. No gallops, murmurs, or rubs. Normal PMI, no JVD. No pulse deficits. Respiratory: Lungs have equal breath sounds bilaterally, clear to auscultation and percussion. No rales, rhonchi or wheezes noted. No increased work of breathing, no retractions or nasal flaring. Abdomen/GI: Soft, non-tender, with normal bowel sounds. No distension or tympany. No guarding or rebound. No evidence of tenderness throughout. Skin: Warm, dry with normal turgor. Normal color with no rashes, no lesions, and no evidence of cellulitis. MS/ Extremity: Pulses equal, no cyanosis. Neurovascular intact. Full, normal range of motion. Neuro: Awake and alert, GCS 15, oriented to person, place, time, and situation. Cranial nerves II-XII grossly intact. Sensory grossly intact. Vital Signs: 14:20 BP 204 / 120; Pulse 68; Resp 17; Temp 98; Pulse Ox 99% on R/A; Pain 3/10; kr2 MDM: 14:50 Patient medically screened. ps1 14:51 Data reviewed: vital signs, nurses notes. ps1 Administered Medications: No medications were administered Disposition: 08/26/17 14:56 Patient has left against medical advice. Impression: Uncontrolled Hypertension. . - Patients states they are going to Home. - Condition is Fair. Follow up: Private Physician; When: As needed; Reason: Recheck today's complaints, Continuance of care, Re-evaluation by your physician. - Problem is an ongoing problem. - Symptoms are unchanged. Signatures: Simin Lee RN RN kr2 Rivas Spangler MD MD ps1 Corrections: (The following items were deleted from the chart) 14:55 14:51 Constitutional: Negative for fever, chills, and weight loss, Eyes: Negative for ps1 injury, pain, redness, and discharge, Neck: Negative for injury, pain, and swelling, Cardiovascular: Negative for chest pain, palpitations, and edema, Respiratory: Negative for shortness of breath, cough, wheezing, and pleuritic chest pain, Abdomen/GI: Negative for abdominal pain, nausea, vomiting, diarrhea, and constipation, Back: Negative for injury and pain, MS/Extremity: Negative for injury and deformity, Skin: Negative for injury, rash, and discoloration, Neuro: Negative for headache, weakness, numbness, tingling, and seizure, ps1
== END 2017-08-26 15:06 | disposition left against medical advice (07) ==
LOC: ER 14:28
DX: I10 Essential (primary) hypertension (principal)
CPT/HCPCS: 99284

== ENCOUNTER 2017-10-08 14:31 | Inpatient (IN) | payer OTHER ==
[2017-10-08 15:19] VITALS: BMI 32.3
[2017-10-08] MEDS ORDERED: FUROSEMIDE 40 MG/4 ML VIAL IV SCH (16:00)
[2017-10-08] MEDS ORDERED: ENOXAPARIN 30 MG/0.3 ML SQ SCH (17:00)
--- NOTE | 2017-10-08 17:00 | P.HP ---
Certification for Inpatient Patient admitted to: Inpatient With expected LOS: >2 Midnights Patient will require the following post-hospital care: None Practitioner: I am a practitioner with admitting privileges, knowledge of patient current condition, hospital course, and medical plan of care. Services: Services provided to patient in accordance with Admission requirements found in Title 42 Section 412.3 of the Code of Federal Regulations Patient History Date of Service: 10/08/17 Primary Care Provider: Jarrett Reason for admission: CHF exacerbation History of Present Illness: Patient came to my office today. Was quite verbal about using cocaine to deal with his pain. He has done this in the past. Had pain and swelling in his legs. He had 3+ edema. Decision was made to send him to the hospital. He has a history of chf, ckd. Large gastric ulcer. Untreated Hep C. He has abused cocaine in the past. Is poorly compliant with follow up. Allergies Corticosteroids (Glucocorticoids) Allergy (Verified 10/08/17 15:06) Anaphylaxis Home Medications: Amlodipine Besylate 10 mg PO DAILY 06/26/17 Gabapentin [Neurontin*] 300 mg PO TID 06/26/17 Apixaban [Eliquis] 5 mg PO BID #60 tablet 08/02/17 Carvedilol [Coreg*] 25 mg PO BID 6AM 6PM #180 tab 08/02/17 Doxazosin Mesylate [Cardura] 2 mg PO BID* #180 tablet 08/02/17 Spironolactone 25 mg PO DAILY #90 tablet 08/02/17 Bumetanide [Bumex] 2 mg PO DAILY 10/08/17 Pantoprazole Sodium [Protonix] 40 mg PO DAILY 10/08/17 - Past Medical/Surgical History Has patient received pneumonia vaccine in the past: No Diabetic: Yes -: HTN -: IDDM -: Arthritis -: high cholesterol -: cva- 2015 -: anemia -: drug abuse -: colonoscopy -: EGD - Family History Father -: Heart disease Notes: NO REAL HISTORY IS KNOWN OTHER THAN WHAT WAS TOLD TO HIM Mother -: Cancer Notes: NO REAL HISTORY KNOWN OTHER THAN WHAT WAS TOLD TO HIM - Social History Smoking Status: Never smoker Alcohol use: No CD- Drugs: No Caffeine use: Yes Review of Systems 10-point ROS is otherwise unremarkable Respiratory: Shortness of Breath Cardiovascular: Edema Musculoskeletal: Leg Pain Physical Examination - Vital Signs Temperature: 96.7 F Blood Pressure: 156/76 Pulse: 63 Respirations: 18 Pulse Ox (%): 100 - Physical Exam General: Alert, In no apparent distress HEENT: Atraumatic, PERRLA, Mucous membr. moist/pink, EOMI, Sclerae nonicteric Neck: Supple, 2+ carotid pulse no bruit, No LAD, Without JVD or thyroid abnormality Respiratory: Clear to auscultation bilaterally, Diminished Cardiovascular: Regular rate/rhythm, Normal S1 S2, Edema (3+) Gastrointestinal: Normal bowel sounds, No tenderness Musculoskeletal: No tenderness Integumentary: No rashes Neurological: Normal gait, Normal speech, Normal strength at 5/5 x4 extr, Normal tone, Normal affect Lymphatics: No axilla or inguinal lymphadenopathy - Studies Laboratory Data (last 24 hrs) 10/08/17 15:40: Troponin I < 0.03 Assessment and Plan - Problems (Diagnosis) (1) Acute on chronic renal failure Current Visit: No Status: Acute Plan: Will consult Dr. Rose. He has had a biopsy in Jun. Will need to be careful about diuresing this patient. As we do not want to cause further damage to his kidneys. Qualifiers: Acute renal failure type: unspecified Chronic kidney disease stage: stage 3 (moderate) Qualified Code(s): N17.9 - Acute kidney failure, unspecified; N18.3 - Chronic kidney disease, stage 3 (moderate) (2) CHF (congestive heart failure) Onset Date: 07/15/17 Current Visit: No Status: Acute Plan: Most likely an exacerbation caused by his cocaine use Will start diuresis. Consult Dr. Alvarado. Qualifiers: Heart failure type: diastolic Heart failure chronicity: chronic Qualified Code(s): I50.32 - Chronic diastolic (congestive) heart failure (3) Gastric ulcer Current Visit: No Status: Acute Plan: He has pallor of his finger nails. Will monitor his hct. Transfuse if necessary. Qualifiers: Gastric ulcer chronicity: chronic Gastric ulcer complication status: without hemorrhage or perforation Qualified Code(s): K25.7 - Chronic gastric ulcer without hemorrhage or perforation (4) Hepatitis C Current Visit: No Status: Acute Plan: He was to start treatment with Dr. Aiken. However he does not regularly follow up. Qualifiers: Viral hepatitis chronicity: chronic Hepatic coma status: without hepatic coma Qualified Code(s): B18.2 - Chronic viral hepatitis C (5) Cocaine abuse Onset Date: 04/08/17 Current Visit: No Status: Chronic Plan: Has been a chronic problem. Have discussed it with him in the past. He states that he is seeing a mental health professional. Discharge Plan: Home Plan to discharge in: Greater than 2 days - Advance Directives Does patient have a Living Will: No Does patient have a Durable POA for Healthcare: No - Code Status/Comfort Care Code Status Assessed: No Code Status: Full Code Physician Review: Patient Assessed, Agree with Above Assessment and Plan Critical Care: No Time Spent Managing Pts Care (In Minutes): 70
[2017-10-08 17:11] LABS: Urine Appearance CLEAR; Urine Bilirubin NEGATIVE (NEG); Urine Blood TRACE (NEG); Urine Color YELLOW; Urine Glucose NEGATIVE (NEG); Urine Protein 3+ (NEG); Urine Urobilinogen 0.2 mg/dL (0.2-1.0); Urine pH 6.5 (5.0-7.0)
[2017-10-08 17:17] LABS: Barbiturates NEGATIVE; Benzodiazepines NEGATIVE; Cocaine POSITIVE; METHAMPHETAM NEGATIVE (NEGATIVE); Opiates NEGATIVE; Phencyclidine NEGATIVE; THC Cannibis NEGATIVE
[2017-10-08 17:25] LABS: Urine Microscopic Reflex ORDER UMIC
[2017-10-08 17:42] LABS: Urine Bacteria <20 /HPF (NONE SEEN); Urine Culture Reflex Order NOT NEEDED; Urine RBC <5 /HPF (NONE SEEN)
[2017-10-08] MEDS: GABAPENTIN 300 MG CAP PO SCH (20:05)
[2017-10-08] MEDS ORDERED: APIXABAN 5 MG TABLET PO SCH (21:00)
--- NOTE | 2017-10-09 04:49 | CON ---
Date of Consultation: 10/08/2017 Reason For Consultation: Possible congestive heart failure. History Of Present Illness: Mr. Trejo is a 62-year-old black male, has multiple past medical histor y including congestive heart failure that is chronic diastolic, chronic kidney disease, peptic ulcer disease, cocaine abuse, hepatitis C that is untreated, CVA in 2015, hypertension, diabetes, dyslipide janet, came in with shortness of breath and pedal edema. No chest pain. No nausea, vomiting, diaphore sis. No palpitations or syncope. Echocardiogram showed an ejection of 69% with left ventricular hyp ertrophy. His troponin was negative. Rest of the blood work was still pending. Past Medical History: As stated above. Allergies: NONE. Review of Systems: Negative. Social History: Positive for cocaine use. Family History: Negative. Medications: At home include Norvasc, Eliquis, Coreg, Aldactone, Bumex, Protonix, and Cardura. Physical Examination: General: Mr. Trejo was pleasant, no acute distress, sinus rhythm. Vital Signs: Stable. HEENT: Negative. Neck: Supple with no bruit, JVD, lymphadenopathy, or thyromegaly. Chest: Clear to auscultation and percussion. Cardiac: A regular rhythm and rate with S4 gallops. Abdomen: Benign. Extremities: With 2+ to 3+ edema. Diagnostic Data: As stated earlier, some of it is still pending. Impression And Plan: 1.Possible acute exacerbation of chronic diastolic congestive heart failure. Repeat echocardiogram is pending. 2.Untreated hepatitis C. 3.History of cerebrovascular accident in 2014. 4.Cocaine abuse. 5.Hypertension. 6.Diabetes. 7.Dyslipidemia. 8.Chronic kidney disease. 9.History of peptic ulcer disease. 10.Recent admission to the hospital with thrombosis in the basilic and cephalic vein. He is on Eliq uis for that. I will continue his present regimen right now in addition to diurese him and watch his kidney, but I am afraid that his symptoms may be related more to his kidney insufficiency rather emmanuel n heart failure. We will see what the echocardiogram shows. Regardless, he is going to need to be o n diuresis, salt restriction. He needs to have his blood pressure well controlled. He needs to be m ore compliant with his medication. He is to continue the Eliquis for at least 6 months till r. I will continue to follow him along with Dr. Farias. REAGAN/ZULEIMA Voice ID: [id number] Report ID: [id number]
[2017-10-09 05:37] LABS: Absolute Lymphocytes (CBC) 0.8 K/uL (0.7-4.9); Absolute Monocytes 0.5 K/uL (0.1-1.3); Absolute Neutrophil 2.6 K/uL (1.8-8.0); Basophils % 0.8 % (0-1.3); Eosinophils % 3.6 % (0-4.4); Hematocrit 16.2 % (39.6-49.0); Lymphocytes % 20.4 % (15.3-44.8); MCH 26.1 pg (27.0-35.0); MCV 82.1 fL (80-100); MPV 10.4 fL (7.6-11.3); Monocytes % 11.5 % (3.3-12.3); RBC Red Blood Cell Count 1.97 M/uL (4.33-5.43)
[2017-10-09] MEDS ORDERED: PANTOPRAZOLE 40MG TABLET PO SCH (07:30)
[2017-10-09 07:48] LABS: Albumin 2.5 g/dL (3.2-5.5); Bilirubin Total 0.3 mg/dL (0.3-1.2); Magnesium 1.8 mg/dL (1.8-2.5); Phosphorus 4.9 mg/dL (2.5-4.3); Potassium 4.8 mEq/L (3.6-5.0); Protein, Total 5.3 g/dL (6.0-8.3)
[2017-10-09] MEDS ORDERED: FUROSEMIDE 40 MG/4 ML VIAL IV ONE ×3 (07:53→16:00)
[2017-10-09] MEDS ORDERED: SPIRONOLACTONE 25 MG TABLET PO SCH (09:00)
[2017-10-09 09:01] LABS: Anisocytosis 2+; Blood Morphology Comment NOTED (NOT SEEN); Platelet Estimate ADEQ; Poikilocytosis 2+; Target Cells 1+; Urine White Blood Cell Casts OK
[2017-10-09] MEDS: GUAIFENESIN/DM 5 ML UCUP PO PRN ×2 (09:06→15:22)
[2017-10-09] MEDS: AMLODIPINE 10 MG TAB PO SCH (09:07)
[2017-10-09] MEDS: GABAPENTIN 300 MG CAP PO SCH ×3 (09:08→20:46)
[2017-10-09] MEDS: DOXAZOSIN 2 MG TAB PO SCH ×2 (09:08→13:17)
[2017-10-09] MEDS: FUROSEMIDE 40 MG/4 ML VIAL IV SCH ×2 (09:09→20:46)
[2017-10-09] MEDS: MORPHINE 4 MG/ML SYR IV PRN ×2 (09:10→20:58)
[2017-10-09 10:09] LABS: Rheumatoid Factor NEG (NEG)
--- NOTE | 2017-10-09 10:12 | P.PN ---
Subjective Date of Service: 10/09/17 Primary Care Provider: Jarrett Chief Complaint: CHF exacerbation Subjective: Worsening (Worsening) Review of Systems General: Weakness, Malaise Cardiovascular: Edema Physical Examination - Vital Signs Temperature: 99.6 F Blood Pressure: 164/80 Pulse: 79 Respirations: 16 Pulse Ox (%): 98 - Physical Exam General: Alert, In no apparent distress HEENT: Atraumatic, PERRLA, EOMI Neck: Supple, JVD not distended Respiratory: Clear to auscultation bilaterally, Normal air movement Cardiovascular: Regular rate/rhythm, Normal S1 S2, Edema Gastrointestinal: Normal bowel sounds, No tenderness Musculoskeletal: No tenderness Integumentary: No rashes Neurological: Normal speech, Normal tone, Normal affect Lymphatics: No axilla or inguinal lymphadenopathy - Studies Laboratory Data (last 24 hrs) 10/09/17 06:11: Sodium 139, Potassium 4.8, BUN 52 H, Creatinine 2.43 H, Glucose 116, Phosphorus 4.9 H, Magnesium 1.8, Total Bilirubin 0.3, AST 35, ALT 28, Alkaline Phosphatase 72 10/09/17 05:15: WBC 4.1 L, Hgb 5.1 L*, Hct 16.2 L*, Plt Count 148 L 10/09/17 05:00: Sodium Cancelled, Potassium Cancelled, BUN Cancelled, Creatinine Cancelled, Glucose Cancelled, Phosphorus Cancelled, Magnesium Cancelled 10/08/17 15:40: Troponin I < 0.03 Assessment & Plan - Problems (Diagnosis) (1) Acute on chronic renal failure Current Visit: No Status: Acute Plan: Will consult Dr. Rose. He has had a biopsy in Jun. Will need to be careful about diuresing this patient. As we do not want to cause further damage to his kidneys. His kidney function is at baseline. He will be receiving a lot of blood products due to his anemia. Qualifiers: Acute renal failure type: unspecified Chronic kidney disease stage: stage 3 (moderate) Qualified Code(s): N17.9 - Acute kidney failure, unspecified; N18.3 - Chronic kidney disease, stage 3 (moderate) (2) CHF (congestive heart failure) Onset Date: 07/15/17 Current Visit: No Status: Acute Plan: Most likely an exacerbation caused by his cocaine use Echo pending. Though cardiology wants eliquis. Will have to hold it in light of his gi bleed. Qualifiers: Heart failure type: diastolic Heart failure chronicity: chronic Qualified Code(s): I50.32 - Chronic diastolic (congestive) heart failure (3) Gastric ulcer Current Visit: No Status: Acute Plan: Consult to Dr. Tan who scoped him in Jun. Will give him 2 units of blood and a unit of ffp. Qualifiers: Gastric ulcer chronicity: chronic Gastric ulcer complication status: without hemorrhage or perforation Qualified Code(s): K25.7 - Chronic gastric ulcer without hemorrhage or perforation (4) Hepatitis C Current Visit: No Status: Acute Plan: He was to start treatment with Dr. Aiken. However he does not regularly follow up. Qualifiers: Viral hepatitis chronicity: chronic Hepatic coma status: without hepatic coma Qualified Code(s): B18.2 - Chronic viral hepatitis C (5) Cocaine abuse Onset Date: 04/08/17 Current Visit: No Status: Chronic Plan: Has been a chronic problem. Have discussed it with him in the past. He states that he is seeing a mental health professional. Discharge Plan: Home Plan to discharge in: Greater than 2 days - Code Status/Comfort Care Code Status Assessed: No Code Status: Full Code Physician Review: Patient Assessed, Agree with Above Assessment and Plan Critical Care: No Time Spent Managing Pts Care (In Minutes): 35
[2017-10-09 11:02] LABS: A1c Component 0.25 mg/dL; Hemoglobin A1c ND % (4-6.0)
[2017-10-09] MEDS ORDERED: NA CHLORIDE 0.9% 250 ML ONE ×2 (11:08→14:58)
--- NOTE | 2017-10-09 12:06 | ECHO ---
HEIGHT: 5 ft 11 in WEIGHT: 231 lb 12.8 oz DATE OF STUDY: 10/09/[address]: Ruperto Alvarado MD 2-DIMENSIONAL: YES M.MODE: YES DOPPLER: YES COLOR FLOW: YES TDS: PORTABLE: DEFINITY: BUBBLE STUDY: DIAGNOSIS: CONGESTIVE HEART FAILURE CARDIAC HISTORY: CATHERIZATION: SURGERY: PROSTHETIC VALVE: PACEMAKER: MEASUREMENTS (cm) DIASTOLIC (NORMALS) SYSTOLIC (NORMALS) IVSd 1.3 (0.6-1.2) LA Diam 4.6 (1.9-4.0) LVEF 59% LVIDd 4.9 (3.5-5.7) LVIDs 3.4 (2.0-3.5) %FS 31% LVPWd 1.4 (0.6-1.2) Ao Diam 2.8 (2.0-3.7) 2 DIMENSIONAL ASSESSMENT: RIGHT ATRIUM: DILATED LEFT ATRIUM: DILATED RIGHT VENTRICLE: DILATED LEFT VENTRICLE: LEFT VENTRICULAR HYPERTROPHY TRICUSPID VALVE: NORMAL MITRAL VALVE: NORMAL PULMONIC VALVE: NORMAL AORTIC VALVE: NORMAL PERICARDIAL EFFUSION: NONE AORTIC ROOT: NORMAL LEFT VENTRICULAR WALL MOTION: NORMAL DOPPLER/COLOR FLOW: MILD TRICUSPID REGURGITATION. MODERATE PULMONARY HYPERTENSION. ESTIMATED RIGHT VENTRICULAR SYSTOLIC PRESSURE 55 mmHg. TRACE MITRAL REGURGITATION. COMMENTS: NORMAL LEFT VENTRICULAR EJECTION FRACTION. LEFT VENTRICULAR HYPERTROPY. DILATED LEFT ATRIUM, RIGHT ATRIUM AND RIGHT VENTRICLE. MILD TRICUSPID REGURGITATION. MODERATE PULMONARY HYPERTENSION. TECHNOLOGIST: SAURAV VELÁSQUEZ
--- NOTE | 2017-10-09 13:07 | CON ---
Date of Consultation: 10/09/2017 Brief History Of Present Illness: The patient is a 62-year-old gentleman known to huong allan from previous admissions. He has had a history of anemia and had endoscopy multiple times. Last t ace I performed endoscopy on him with an upper endoscopy/EGD. I had noted that he had a large gastri c ulcer with sequelae of bleeding. He was treated medically at that time and had improvement of his hemoglobin and symptomatic improvement significantly; however, he has been discharged and he has retu rned to his normal lifestyle, which unfortunately includes recreational use of cocaine. He has been noncompliant with his pain medication, acid pills and acid suppressive therapy, low acid diet, any of the medical management as recommended. He therefore also resumed his cocaine use and noted that he had some problems with pain and went to see Dr. Farias. He had increased swelling in his legs and his belly and his arms, legs, just general edema overall and as such, Dr. Farias transferred him to the [facility] for workup. Past Medical History: Significant for noncompliance with medical therapy, hypertension, hepatitis C untreated, large gastric ulcer, CHF, CKD, diabetes, arthritis, high cholesterol, CVA in 2015, anemia, cocaine, and multiple drug abuse. Past Surgical History: Includes EGD and colonoscopy as described. Allergies: TO CORTICOSTEROIDS, WHICH CAUSED ANAPHYLAXIS. Home Medications: Include amlodipine, Neurontin, Eliquis, Coreg, Cardura, spironolactone, Bumex, and Protonix, although again he has been noncompliant with his medications by his description. Family History: Reviewed and noncontributory. Social History: Smoking history, he denies smoking, but his recreational drug use as described above . Review of Systems: His 10-point review of systems other than HPI, denies abdominal pain and swelling as described. Physical Examination: His vital signs at time of my examination, BMI is approximately 32. His blood pressure 160/84, pulse is 80, respiratory rate 17, temperature 98.8. General: He is awake, alert, and oriented. Psychiatric: He is appropriate, conversive. HEENT: He is normocephalic. His sclerae have a slight injected appearance but otherwise are anicter ic. His mucous membranes are moist. His oropharynx is clear. Neck: Supple without JVD. Chest: Normal expansion and excursion. Cardiovascular: Regular rate and rhythm. Pulmonary: Clear to auscultation bilaterally. Abdomen: Soft, but he does have dependent edema on the lateral aspect bilaterally of his back/abdome n in a dependent type fashion. Otherwise his abdomen is soft, nontender, nondistended. Extremities: He does have edema, 2+ pitting edema in all 4 extremities and throughout his body. He has a general state of anasarca. His skin is otherwise warm and dry. Laboratory Data: Reveals a white blood count of 4.1, hemoglobin 5.1, hematocrit of 16.2. His platel et count is 148. His sodium 139, potassium 4.8, chloride 109, carbon dioxide 25, BUN 52, creatinine 2.43. His glucose was 116. Hemoglobin A1c is pending. Calcium 8.0, phosphorus 4.9, magnesium 1.8, AST is 35, ALT 28, total bilirubin 0.3, alkaline phosphatase 72. PTH is 168. UA showed trace blood and 3+ total protein, otherwise negative. Cocaine screen was positive on his tox screen. Assessment And Plan: This is a 62-year-old male who comes in with acute blood loss anemia, likely fr om a gastric ulcer. He is hemodynamically stable and has had multiple episodes of anemia of this typ e, treated medically. 1.I recommend blood product resuscitation with blood and FFP and platelets; however, due to the sonny ent's general state of congestive heart failure and anasarca, I recommend intermittent Lasix in betwe en these units to ensure volume overload does not occur and he does not have an exacerbation of his c ongestive heart failure. 2.All blood thinners must be held including his Eliquis. 3.Serial abdominal exams. 4.The patient will likely require repeat endoscopy; however at the acute phase we will also send his stool for blood examination and plan on upper endoscopy in the near future, but he will require resu scitation with blood product prior to endoscopy as he does not appear to have any acute hemodynamic i nstability and the patient has a history of anemia at this level without hemodynamic instability. 5.Continue close monitoring with telemetry. 6.I have explained the risks, benefits, and alternatives of the above-stated plan to the patient. H e agrees to proceed as indicated. AARON/ZULEIMA Voice ID: [id number] Report ID: [id number]
[2017-10-09] MEDS: PANTOPRAZOLE 40MG TABLET PO SCH (16:03)
[2017-10-09 16:37] LABS: Urine Appearance CLEAR; Urine Bilirubin NEGATIVE (NEG); Urine Blood TRACE (NEG); Urine Color YELLOW; Urine Glucose NEGATIVE (NEG); Urine Protein 2+ (NEG); Urine Specific Gravity <=1.005 (1.005-1.030); Urine Urobilinogen 0.2 mg/dL (0.2-1.0); Urine pH 6.5 (5.0-7.0)
[2017-10-09 16:38] LABS: Urine Microscopic Reflex ORDER UMIC
[2017-10-09 16:53] LABS: Urine Bacteria NONE SEEN /HPF (NONE SEEN); Urine Culture Reflex Order NOT NEEDED; Urine RBC <5 /HPF (NONE SEEN)
--- NOTE | 2017-10-09 19:01 | CON ---
Date of Consultation: 10/09/2017 Additional Consulting Physician: Gerardo Farias MD Reason For Consultation: Elevated BUN and creatinine, anasarca. History Of Present Illness: This is a pleasant 62-year-old gentleman with significant past medical h istory of chronic kidney disease with nephrotic range proteinuria status post biopsy done back in Jul in last admission at that time. Biopsy showed possibility of light chain disease. Pathologist re commended to have immune fixation. The patient at that time had acute kidney injury secondary to his anasarca. His anasarca was secondary to renal failure, congestive heart failure, and found to have hepatitis C. Workup including a cryo was negative. The patient developed DVT. 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 SPEP was negative, IPEP still was not done. The patient lost followup. Di d not follow up with his primary care. According to him, he got overwhelmed, then he showed yesterda y to Dr. Farias's office with severe anasarca, weak, and difficulty ambulating. For that reason, the patient's primary workup showed he had severe anemia. For that reason, the patient was admitted. Cr donita was not that far from his baseline. Past Medical History: 1.Diabetes complicated with neuropathy and nephropathy. 2.Chronic kidney disease, baseline creatinine 2-2.5 with GFR around 30. 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 4.Questionable light chain deposition based on the strong staining of lambda free compared to kappa. No definitive punctuation. 5.Hepatitis C. 6.Cocaine use. Allergies: TO STEROID. Home Medications: Include Norvasc, gabapentin, spironolactone, and Lasix, but he is not compliant wi th it. Social History: Active alcohol, active smoker, and active cocaine use. Family History: Positive for hypertension. Review of Systems: Head and Neck: No red eyes. No ear pain. GI: No nausea, no vomiting. : No polyuria. No dysuria. No hematuria. [employer]: Not applicable. Respiratory: Has shortness of breath. Cardiovascular: Has anasarca. Neurologic: Has neuropathy. Musculoskeletal: Generalized fatigue. Endocrine: No polydipsia. Skin: No rash. Physical Examination: General: When I saw the patient, the patient is lying in bed, slightly in distress. Vital Signs: Blood pressure 149/78, pulse of 77. Chest: Crackles bilateral. Heart: S1 and S2 regular. Abdomen: Soft, nontender. Possible ascites. Extremities: +3 edema. Laboratory Data: WBC 4.1, H and H 5.1/16.2, and platelets of 148. Sodium 139, potassium 4.8, bicarb 25, BUN 52, creatinine 2.4, GFR of 33, and calcium 8. Phosphorus of 4.9. TSH of 7, PTH 168. Urina lysis; specific gravity of 1.010, negative for infection. Current Medications: Current medications in the hospital include Lasix 40 b.i.d., Norvasc 10, doxazo sin 2 mg b.i.d., gabapentin 300 t.i.d., pantoprazole, and morphine. Assessment And Plan: 1.Chronic kidney disease, close to his baseline. I am going to go ahead and increase his Lasix to 8 0 mg twice a day. We will add metolazone for the patient to diurese better to establish better volum e control. Given the finding on the biopsy, I again sent for IPEP, and we will follow up the patient . 2.Hypertension. We will utilize the blood pressure for more diuresis. 3.Anasarca, multifactorial, secondary to cardiorenal and nephrotic range proteinuria. We will optim ize diuresis for the patient and we will follow up. 4.Hypothyroidism. Start the patient again on levothyroxine. I am going to consider decreasing the gabapentin as it can contribute to his anasarca. 5.Hepatitis C. As by primary. 6.Anemia secondary to gastrointestinal bleed. The patient is going to receive FFP. We will diurese the patient after the FFP and the blood transfusion. We will follow up with the primary. 7.Diabetes. As by primary. Case discussed with Dr. Carlson. Discussed with the patient. Verbalized understanding. MALINDA/ZULEIMA Voice ID: [id number] Report ID: [id number]
[2017-10-09 19:04] LABS: MPV 9.3 fL (7.6-11.3)
[2017-10-09 19:11] LABS: Protime INR 1.2
[2017-10-09 19:23] LABS: Platelet Estimate DECR
[2017-10-09] MEDS ORDERED: FUROSEMIDE 20 MG/ 2ML VIAL IV ONE (20:36)
[2017-10-09] MEDS ORDERED: NA CHLORIDE 0.9% 100 ML ONE (23:57)
--- NOTE | 2017-10-10 01:26 | PN ---
Date of Progress Note: 10/09/2017 Subjective: Mr. Trejo came in with symptoms that are suggestive of acute kidney injury versus conge stive heart failure. Echocardiogram that was done today was fairly normal without any significant wa ll motion abnormalities. Nevertheless, I still think his problem is a combination of chronic renal f ailure and maybe some diastolic congestive heart failure. The patient is having GI bleeding as well. Fresh frozen plasma is being ordered. Anticoagulation is being held. We will continue to follow h im. I agree with Dr. Cruz's plan and assessment. I will discuss the case further with Dr. Farias . No further cardiac workup planned at this point. REAGAN/ZULEIMA Voice ID: [id number] Report ID: [id number]
[2017-10-10 05:24] LABS: Absolute Lymphocytes (CBC) 0.8 K/uL (0.7-4.9); Absolute Monocytes 0.6 K/uL (0.1-1.3); Absolute Neutrophil 3.5 K/uL (1.8-8.0); Basophils % 1.2 % (0-1.3); Eosinophils % 3.6 % (0-4.4); Hematocrit 23.4 % (39.6-49.0); Lymphocytes % 15.7 % (15.3-44.8); MCH 27.3 pg (27.0-35.0); MCV 83.6 fL (80-100); MPV 9.4 fL (7.6-11.3); Monocytes % 11.1 % (3.3-12.3); RBC Red Blood Cell Count 2.79 M/uL (4.33-5.43)
[2017-10-10 05:25] LABS: RBC Red Blood Cell Count 2.8 M/uL (4.33-5.43)
[2017-10-10] MEDS: LEVOTHYROXINE SOD 0.075 MG TAB PO SCH (06:00)
[2017-10-10 06:02] LABS: Albumin 2.8 g/dL (3.2-5.5); Bilirubin Total 0.5 mg/dL (0.3-1.2); Ferritin 23.6 ng/ml (23.9-336.2); Folic Acid, (Folate) 13.5 ng/ml (>5.21); Magnesium 1.7 mg/dL (1.8-2.5); Phosphorus 5.3 mg/dL (2.5-4.3); Potassium 4.6 mEq/L (3.6-5.0); Protein, Total 5.9 g/dL (6.0-8.3)
[2017-10-10] MEDS: METOLAZONE 5 MG TABLET PO SCH (08:53)
[2017-10-10] MEDS: PANTOPRAZOLE 40MG TABLET PO SCH ×2 (08:54→15:49)
[2017-10-10] MEDS: DOXAZOSIN 2 MG TAB PO SCH ×2 (08:54→13:36)
[2017-10-10] MEDS: AMLODIPINE 10 MG TAB PO SCH (08:55)
[2017-10-10] MEDS: GABAPENTIN 300 MG CAP PO SCH ×3 (08:55→20:39)
[2017-10-10] MEDS: FUROSEMIDE 40 MG/4 ML VIAL IV SCH ×2 (08:56→20:39)
[2017-10-10] MEDS: MORPHINE 4 MG/ML SYR IV PRN ×2 (08:56→20:41)
--- NOTE | 2017-10-10 09:08 | P.PN ---
Subjective Date of Service: 10/10/17 Primary Care Provider: Jarrett Chief Complaint: CHF exacerbation Subjective: Improving (Anemia improved with blood products, had appropriate response, no hemodynamic instability, patient feels very well now) Physical Examination - Vital Signs Temperature: 98.6 F Blood Pressure: 183/89 Pulse: 69 Respirations: 18 Pulse Ox (%): 100 - Physical Exam General: Alert, In no apparent distress, Cooperative Respiratory: Clear to auscultation bilaterally Cardiovascular: Edema Gastrointestinal: Soft and benign - Studies Laboratory Data (last 24 hrs) 10/10/17 : Hct Cancelled 10/10/17 05:10: Sodium 139, Potassium 4.6, BUN 54 H, Creatinine 2.64 H, Glucose 116, Phosphorus 5.3 H, Magnesium 1.7 L, Total Bilirubin 0.5, AST 36, ALT 27, Alkaline Phosphatase 76 10/10/17 05:10: WBC 5.1 D, Hgb 7.6 L*, Hct 23.4 L, Plt Count 127 L 10/10/17 05:00: Sodium Cancelled, Potassium Cancelled, BUN Cancelled, Creatinine Cancelled, Glucose Cancelled, Total Bilirubin Cancelled, AST Cancelled, ALT Cancelled, Alkaline Phosphatase Cancelled 10/09/17 18:50: Hgb 6.7 L*, Hct 21.0 L D 10/09/17 18:50: Plt Count 135 L 10/09/17 18:50: PT 14.2 H, INR 1.20, APTT 34.5 Assessment And Plan - Current Problems (Diagnosis) (1) Anemia Onset Date: 09/05/15 Current Visit: No Status: Acute Plan: - continue current Tx - start diet today, NPO after midnight - recheck hemoglobin in AM - will consider endoscopy soon Qualifiers: Iron deficiency anemia type: chronic blood loss Physician Review: Patient Assessed, Agree with Above Assessment and Plan
--- NOTE | 2017-10-10 09:58 | P.PN ---
Subjective Date of Service: 10/10/17 Primary Care Provider: Jarrett Chief Complaint: CHF exacerbation Subjective: Improving (Hb has improved.) Review of Systems 10-point ROS is otherwise unremarkable Cardiovascular: Edema Physical Examination - Vital Signs Temperature: 98.6 F Blood Pressure: 183/89 Pulse: 69 Respirations: 18 Pulse Ox (%): 100 - Physical Exam General: Alert, In no apparent distress, Mild distress HEENT: Atraumatic, PERRLA, EOMI Neck: Supple, JVD not distended Respiratory: Clear to auscultation bilaterally, Normal air movement Cardiovascular: Regular rate/rhythm, Normal S1 S2, Edema (3+) Gastrointestinal: Normal bowel sounds, No tenderness Musculoskeletal: No tenderness Integumentary: No rashes Neurological: Normal speech, Normal tone, Normal affect Lymphatics: No axilla or inguinal lymphadenopathy - Studies Laboratory Data (last 24 hrs) 10/10/17 : Hct Cancelled 10/10/17 05:10: Sodium 139, Potassium 4.6, BUN 54 H, Creatinine 2.64 H, Glucose 116, Phosphorus 5.3 H, Magnesium 1.7 L, Total Bilirubin 0.5, AST 36, ALT 27, Alkaline Phosphatase 76 10/10/17 05:10: WBC 5.1 D, Hgb 7.6 L*, Hct 23.4 L, Plt Count 127 L 10/10/17 05:00: Sodium Cancelled, Potassium Cancelled, BUN Cancelled, Creatinine Cancelled, Glucose Cancelled, Total Bilirubin Cancelled, AST Cancelled, ALT Cancelled, Alkaline Phosphatase Cancelled 10/09/17 18:50: Hgb 6.7 L*, Hct 21.0 L D 10/09/17 18:50: Plt Count 135 L 10/09/17 18:50: PT 14.2 H, INR 1.20, APTT 34.5 Assessment & Plan - Problems (Diagnosis) (1) Acute on chronic renal failure Onset Date: 10/09/17 Current Visit: Yes Status: Acute Plan: Patient is fluid overloaded. needs diuresis. Slight elevation of his creatine. Will discuss with Dr. Rose Qualifiers: Acute renal failure type: unspecified Chronic kidney disease stage: stage 3 (moderate) Qualified Code(s): N17.9 - Acute kidney failure, unspecified; N18.3 - Chronic kidney disease, stage 3 (moderate) (2) CHF (congestive heart failure) Onset Date: 07/15/17 Current Visit: No Status: Acute Plan: Require blood products is worsen in his chf. Will continue diuresis. Will have to hold elliquis due to his gastric ulcer. Qualifiers: Heart failure type: diastolic Heart failure chronicity: chronic Qualified Code(s): I50.32 - Chronic diastolic (congestive) heart failure (3) Gastric ulcer Onset Date: 10/09/17 Current Visit: Yes Status: Acute Plan: Has been hematology stable after transfusion. May be scoped in the morning. Will see if his hb stays stable. Qualifiers: Gastric ulcer chronicity: chronic Gastric ulcer complication status: without hemorrhage or perforation Qualified Code(s): K25.7 - Chronic gastric ulcer without hemorrhage or perforation (4) Hepatitis C Onset Date: 10/09/17 Current Visit: Yes Status: Acute Plan: He was to start treatment with Dr. Aiken. However he does not regularly follow up. Qualifiers: Viral hepatitis chronicity: chronic Hepatic coma status: without hepatic coma Qualified Code(s): B18.2 - Chronic viral hepatitis C (5) Cocaine abuse Onset Date: 04/08/17 Current Visit: No Status: Chronic Plan: Has been a chronic problem. Have discussed it with him in the past. He states that he is seeing a mental health professional. Discharge Plan: Home Plan to discharge in: Greater than 2 days - Code Status/Comfort Care Code Status Assessed: No Code Status: Full Code Physician Review: Patient Assessed, Agree with Above Assessment and Plan Critical Care: No Time Spent Managing Pts Care (In Minutes): 25
[2017-10-10] MEDS ORDERED: MAGNESIUM SULFATE 1 gm IVPB 1 GM/100 ML BAG IV ONE (13:16)
[2017-10-10] MEDS ORDERED: AMLODIPINE 5 MG TAB PO ONE (18:47)
--- NOTE | 2017-10-11 00:14 | PN ---
Date of Progress Note: 10/10/2017 Chief Complaint: Elevated BUN and creatinine, anasarca, fluid overload. History Of Present Illness: The patient is a 62-year-old man with history of chronic kidney disease, nephrotic range proteinuria. Biopsy of the kidney showed possible light chain disease. The patient has history of acute kidney injury associated with anasarca, congestive heart failure and he was found to have hepatitis C. The patient has history of diabetes mellitus, chronic kidney disease stage 3 with baseline creatinine 1.8-2.2. There is a questionable light chain disease of the kidneys with diabetic nephropathy. The patient had difficulty with ambulating and due to anasarca is admitted to the hospital for diuretics. Review of Systems: Denies fever or chills. Physical Examination: Lungs: Few crackles at bases. Heart: S1-S2. Abdomen: Soft, benign. Extremities: Edema present in both legs. Laboratory Work: Hemoglobin 7.6, WBC 5.1, platelet count is 127,000. Sodium 139, potassium 4.6, chloride 108, CO2 of 26, BUN 54, creatinine 2.64, glucose 116, magnesium 1.7, calcium 8.2, phosphorus 5.3, albumin is 2.8. Impression And Plan: 1. Fluid overload, anasarca. Continue diuretic. Monitor fluid balance and continue low-sodium diet. 2. Chronic kidney disease stage 3/4. Creatinine level has slightly risen from yesterday baseline. There is high BUN and creatinine ratio secondary to diuretics. The patient has nonoliguric output and is responding to current treatment. Monitor electrolytes closely and plan is to adjust diuretic accordingly. 3. Hypomagnesemia magnesium level 1.7, magnesium replacement will be ordered. 4. Hypertension. Blood pressure in acceptable control. Continue current medication. Today, blood pressure systolic is elevated and plan is to readjust medication as needed. ANSLEY/ZULEIMA Voice ID: [id number] Report ID: [id number] KATIE
[2017-10-11] MEDS: GUAIFENESIN/DM 5 ML UCUP PO PRN ×2 (04:22→18:30)
[2017-10-11 05:17] LABS: Absolute Lymphocytes (CBC) 0.9 K/uL (0.7-4.9); Absolute Monocytes 0.6 K/uL (0.1-1.3); Absolute Neutrophil 3.8 K/uL (1.8-8.0); Basophils % 0.6 % (0-1.3); Eosinophils % 3.8 % (0-4.4); Hematocrit 23.6 % (39.6-49.0); Lymphocytes % 16.6 % (15.3-44.8); MCH 27.3 pg (27.0-35.0); MCV 83.8 fL (80-100); MPV 8.7 fL (7.6-11.3); Monocytes % 10.6 % (3.3-12.3); RBC Red Blood Cell Count 2.82 M/uL (4.33-5.43)
[2017-10-11] MEDS: LEVOTHYROXINE SOD 0.075 MG TAB PO SCH (05:33)
[2017-10-11] MEDS: MORPHINE 4 MG/ML SYR IV PRN ×4 (05:34→23:47)
[2017-10-11 05:35] LABS: Albumin 2.6 g/dL (3.2-5.5); Bilirubin Total 0.3 mg/dL (0.3-1.2); Potassium 4.9 mEq/L (3.6-5.0); Protein, Total 5.7 g/dL (6.0-8.3)
[2017-10-11 05:37] LABS: Albumin 2.7 g/dL (3.2-5.5); Magnesium 1.8 mg/dL (1.8-2.5); Phosphorus 5.6 mg/dL (2.5-4.3)
[2017-10-11] MEDS: FUROSEMIDE 40 MG/4 ML VIAL IV SCH ×2 (08:55→17:08)
[2017-10-11] MEDS: DOXAZOSIN 2 MG TAB PO SCH ×2 (08:55→13:42)
[2017-10-11] MEDS: PANTOPRAZOLE 40MG TABLET PO SCH ×2 (08:55→17:08)
[2017-10-11] MEDS: GABAPENTIN 300 MG CAP PO SCH ×3 (08:55→20:51)
[2017-10-11] MEDS: METOLAZONE 5 MG TABLET PO SCH (08:56)
[2017-10-11] MEDS: AMLODIPINE 10 MG TAB PO SCH (08:56)
--- NOTE | 2017-10-11 13:19 | P.PN ---
Subjective Date of Service: 10/11/17 Primary Care Provider: Jarrett Chief Complaint: CHF exacerbation Subjective: Improving Review of Systems 10-point ROS is otherwise unremarkable Cardiovascular: Edema (2+) Physical Examination - Vital Signs Temperature: 98.2 F Blood Pressure: 158/79 Pulse: 69 Respirations: 18 Pulse Ox (%): 94 - Physical Exam General: Alert, In no apparent distress HEENT: Atraumatic, PERRLA, EOMI Neck: Supple, JVD not distended Respiratory: Clear to auscultation bilaterally, Normal air movement Cardiovascular: Regular rate/rhythm, Normal S1 S2, Edema (2+) Gastrointestinal: Normal bowel sounds, No tenderness Musculoskeletal: No tenderness Integumentary: No rashes Neurological: Normal speech, Normal tone, Normal affect Lymphatics: No axilla or inguinal lymphadenopathy - Studies Laboratory Data (last 24 hrs) 10/11/17 05:05: Sodium 139, Potassium 5.0, BUN 55 H, Creatinine 2.68 H, Glucose 161 H, Phosphorus 5.6 H, Magnesium 1.8 10/11/17 05:05: Sodium 139, Potassium 4.9, BUN 55 H, Creatinine 2.70 H, Glucose 162 H, Total Bilirubin 0.3, AST 40, ALT 27, Alkaline Phosphatase 75 10/11/17 05:05: WBC 5.6, Hgb 7.7 L*, Hct 23.6 L, Plt Count 130 L 10/11/17 05:00: WBC Cancelled, Hgb Cancelled, Hct Cancelled, Plt Count Cancelled Assessment & Plan - Problems (Diagnosis) (1) Acute on chronic renal failure Onset Date: 10/09/17 Current Visit: Yes Status: Acute Plan: Patient is fluid overloaded. needs diuresis. Is slowly improving. creatine is stable. Will most likely need another 2 days of diuresis before it is safe to discharge home Qualifiers: Acute renal failure type: unspecified Chronic kidney disease stage: stage 3 (moderate) Qualified Code(s): N17.9 - Acute kidney failure, unspecified; N18.3 - Chronic kidney disease, stage 3 (moderate) (2) CHF (congestive heart failure) Onset Date: 07/15/17 Current Visit: No Status: Acute Plan: Require blood products is worsen in his chf. Will continue diuresis. Will have to hold elliquis due to his gastric ulcer. Qualifiers: Heart failure type: diastolic Heart failure chronicity: chronic Qualified Code(s): I50.32 - Chronic diastolic (congestive) heart failure (3) Gastric ulcer Onset Date: 10/09/17 Current Visit: Yes Status: Acute Plan: Has been hematology stable after transfusion. May be scoped in the morning. Will see if his hb stays stable. Qualifiers: Gastric ulcer chronicity: chronic Gastric ulcer complication status: without hemorrhage or perforation Qualified Code(s): K25.7 - Chronic gastric ulcer without hemorrhage or perforation (4) Hepatitis C Onset Date: 10/09/17 Current Visit: Yes Status: Acute Plan: He was to start treatment with Dr. Aiken. However he does not regularly follow up. Qualifiers: Viral hepatitis chronicity: chronic Hepatic coma status: without hepatic coma Qualified Code(s): B18.2 - Chronic viral hepatitis C (5) Cocaine abuse Onset Date: 04/08/17 Current Visit: No Status: Chronic Plan: Has been a chronic problem. Have discussed it with him in the past. He states that he is seeing a mental health professional. Discharge Plan: Home Plan to discharge in: Greater than 2 days - Code Status/Comfort Care Code Status Assessed: No Code Status: Full Code Physician Review: Patient Assessed, Agree with Above Assessment and Plan Critical Care: No Time Spent Managing Pts Care (In Minutes): 25
[2017-10-11] MEDS: BUMETANIDE 2.5 MG/10 ML VIAL IV SCH (20:51)
[2017-10-11] MEDS ORDERED: BUMETANIDE 1 MG/4 ML VIAL IV SCH (21:00)
[2017-10-11] MEDS: SOD FERRIC GLUC COMPLX/SUCROSE 250 MG in NA CHLORIDE 0.9% 250 ML IV SCH (23:00)
[2017-10-11] MEDS ORDERED: NA CHLORIDE 0.9% 250 ML ONE (23:00)
[2017-10-11] MEDS ORDERED: SOD FERRIC GLUC COMPLX/SUCROSE 62.5 MG/5 ML VIAL IV ONE (23:02)
--- NOTE | 2017-10-12 01:58 | PN ---
Date of Progress Note: 10/11/2017 Subjective: The patient was admitted with anasarca and started on diuresis and started on levothyrox ine. The patient started to have good urine output. Physical Examination: Vital Signs: Blood pressure of 170/76, pulse of 76, afebrile. The patient in the last 24 hours had urine output of 50-100, negative of 3700. Chest: Decreased air entry in bilateral bases. Heart: S1, S2. Regular. Abdomen: Soft, nontender. Extremities: A +3 edema. Laboratory Data: WBC 5.6, H and H 7.7/23.6, and platelets 130. Sodium 139, potassium 5, bicarb 28, BUN 55, creatinine 2.6, GFR of 30, calcium 8.4, phosphorus 5.6, and magnesium 1.8. TSAT of 21, jose m tin 23. Vitamin D still pending. TSH of 7. IPAP still pending. Rheumatoid factor was negative. P TH 168. Current Medications: The patient is on include Lasix 80 b.i.d., Norvasc 10, Cardura, gabapentin, met olazone 2.5, pantoprazole, and levothyroxine. Assessment And Plan: 1.Acute kidney injury on chronic kidney disease secondary to possible light chain disease. Waiting for immune fixation. Still anasarca. I am going to change his Lasix to Bumex and will increase the metolazone. We will continue to monitor the patient. 2.Hypertension, uncontrolled. We will add hydralazine for better blood pressure control. Could not add ALEJANDRO inhibitor given the marginal hyperkalemia. 3.Anemia, status post transfusion. I going to start the patient on IV iron given the iron deficienc y anemia and we will monitor the patient. 4.Anasarca, as above. 5.Hypothyroidism. Continue supplement. 6.Hep C. Follow up with the primary. Case was discussed with Dr. Farias, who agreed on the plan, discussed with the patient, who verbalized understanding. ROMAN Voice ID: [id number] Report ID: [id number]
[2017-10-12] MEDS: LEVOTHYROXINE SOD 0.075 MG TAB PO SCH (05:49)
[2017-10-12 06:07] LABS: Absolute Lymphocytes (CBC) 0.9 K/uL (0.7-4.9); Absolute Monocytes 0.5 K/uL (0.1-1.3); Absolute Neutrophil 3.8 K/uL (1.8-8.0); Basophils % 0.4 % (0-1.3); Eosinophils % 5.6 % (0-4.4); Hematocrit 27.2 % (39.6-49.0); Lymphocytes % 15.9 % (15.3-44.8); MCH 27.6 pg (27.0-35.0); MCV 84.6 fL (80-100); MPV 8.7 fL (7.6-11.3); Monocytes % 9.4 % (3.3-12.3); RBC Red Blood Cell Count 3.21 M/uL (4.33-5.43)
[2017-10-12 07:00] LABS: Albumin 2.9 g/dL (3.2-5.5); Magnesium 1.9 mg/dL (1.8-2.5); Phosphorus 6.2 mg/dL (2.5-4.3); Potassium 4.6 mEq/L (3.6-5.0)
[2017-10-12] MEDS ORDERED: HYDRALAZINE HCL 25 MG TABLET PO SCH (09:00)
[2017-10-12] MEDS: PANTOPRAZOLE 40MG TABLET PO SCH ×2 (09:33→16:40)
[2017-10-12] MEDS: BUMETANIDE 2.5 MG/10 ML VIAL IV SCH ×2 (09:33→21:00)
[2017-10-12] MEDS: GUAIFENESIN/DM 5 ML UCUP PO PRN ×2 (09:34→18:32)
[2017-10-12] MEDS: GABAPENTIN 300 MG CAP PO SCH ×3 (09:34→21:04)
[2017-10-12] MEDS: AMLODIPINE 10 MG TAB PO SCH (09:34)
[2017-10-12] MEDS: METOLAZONE 5 MG TABLET PO SCH (09:34)
[2017-10-12] MEDS: DOXAZOSIN 2 MG TAB PO SCH ×2 (09:34→13:58)
[2017-10-12] MEDS: MORPHINE 4 MG/ML SYR IV PRN ×3 (09:35→21:02)
--- NOTE | 2017-10-12 09:42 | P.PN ---
Subjective Date of Service: 10/12/17 Primary Care Provider: Jarrett Chief Complaint: CHF exacerbation Subjective: No new changes Review of Systems 10-point ROS is otherwise unremarkable Cardiovascular: Edema (2+) Physical Examination - Vital Signs Temperature: 98.2 F Blood Pressure: 158/75 Pulse: 72 Respirations: 18 Pulse Ox (%): 94 - Physical Exam General: Alert, In no apparent distress HEENT: Atraumatic, PERRLA, EOMI Neck: Supple, JVD not distended Respiratory: Clear to auscultation bilaterally, Normal air movement Cardiovascular: Regular rate/rhythm, Normal S1 S2, Edema (2+) Gastrointestinal: Normal bowel sounds, No tenderness Musculoskeletal: No tenderness Integumentary: No rashes Neurological: Normal speech, Normal tone, Normal affect Lymphatics: No axilla or inguinal lymphadenopathy - Studies Laboratory Data (last 24 hrs) 10/12/17 05:50: WBC 5.5, Hgb 8.9 L, Hct 27.2 L D, Plt Count 156 10/12/17 05:50: Sodium 139, Potassium 4.6, BUN 57 H, Creatinine 3.02 H, Glucose 167 H, Phosphorus 6.2 H, Magnesium 1.9 Microbiology Data (last 24 hrs): 10/12/17 05:10 Stool Occult Blood - Final Assessment & Plan - Problems (Diagnosis) (1) Acute on chronic renal failure Onset Date: 10/09/17 Current Visit: Yes Status: Acute Plan: Patient is fluid overloaded. needs diuresis. Is slowly improving. creatine is slightly elevated today Qualifiers: Acute renal failure type: unspecified Chronic kidney disease stage: stage 3 (moderate) Qualified Code(s): N17.9 - Acute kidney failure, unspecified; N18.3 - Chronic kidney disease, stage 3 (moderate) (2) CHF (congestive heart failure) Onset Date: 07/15/17 Current Visit: No Status: Acute Plan: Require blood products is worsen in his chf. Will continue diuresis. Will have to hold elliquis due to his gastric ulcer. Qualifiers: Heart failure type: diastolic Heart failure chronicity: chronic Qualified Code(s): I50.32 - Chronic diastolic (congestive) heart failure (3) Gastric ulcer Onset Date: 10/09/17 Current Visit: Yes Status: Acute Plan: HB is improving. Per Dr. Tan can have an outpatient EGD Qualifiers: Gastric ulcer chronicity: chronic Gastric ulcer complication status: without hemorrhage or perforation Qualified Code(s): K25.7 - Chronic gastric ulcer without hemorrhage or perforation (4) Hepatitis C Onset Date: 10/09/17 Current Visit: Yes Status: Acute Plan: He was to start treatment with Dr. Aiken. However he does not regularly follow up. Qualifiers: Viral hepatitis chronicity: chronic Hepatic coma status: without hepatic coma Qualified Code(s): B18.2 - Chronic viral hepatitis C (5) Cocaine abuse Onset Date: 04/08/17 Current Visit: No Status: Chronic Plan: Has been a chronic problem. Have discussed it with him in the past. He states that he is seeing a mental health professional. (6) HTN (hypertension) Onset Date: 07/15/17 Current Visit: No Status: Acute Plan: Not well controlled. He is on amlodipine. Coreg has been held due to Acute CHF exacerbation. Will not start an ALEJANDRO due to worsening creatine. Start the patient on isosorbide. Will adjust as necessary Qualifiers: Hypertension type: essential hypertension Discharge Plan: Home Plan to discharge in: Greater than 2 days - Code Status/Comfort Care Code Status Assessed: No Code Status: Full Code Physician Review: Patient Assessed, Agree with Above Assessment and Plan Critical Care: No Time Spent Managing Pts Care (In Minutes): 25
[2017-10-12] MEDS: ISOSORBIDE MONO 10 MG TAB PO SCH ×2 (11:49→21:04)
[2017-10-12] MEDS: HYDRALAZINE HCL 25 MG TABLET PO SCH ×2 (13:58→21:04)
[2017-10-12] MEDS: CA ACETATE 667 MG CAP PO SCH (16:40)
--- NOTE | 2017-10-12 17:49 | PN ---
Date of Progress Note: 10/12/2017 The patient is feeling better, swelling subsided significantly. Blood pressure being better controll ed. Physical Examination: Vital Signs: Blood pressure 158/75, pulse of 72 afebrile. Chest: Clear to auscultation. Heart: S1, S2. Regular. Abdomen: Soft nontender. Extremities: +4 edema. Laboratory Data: WBC 5.5, H and H 8.9/27.2, platelet 156. Sodium 139, potassium 4.6, bicarb 28, BUN 57, creatinine 3, calcium 8.7, phosphorus 6.2, magnesium 1.9. Albumin 2.9. Immunofixation positive for lambda would support the finding on the kidney biopsy. Medications: Current medications the patient on include: 1.IV iron. 2.Amlodipine 10. 3.Cardura 2 b.i.d. 4.Hydralazine 25 t.i.d. 5.Isosorbide 10 b.i.d. 6.Gabapentin 300 t.i.d. 7.Bumex 2 mg 3 times a day. 8.Metolazone 5 mg daily. 9.Pantoprazole. 10.Levothyroxine 75. Assessment And Plan: Acute kidney injury, multifactorial, secondary to cardiorenal with light chain disease. 1.As it looked to me, started being close to the normal volume. I am going to discontinue metolazon e, decrease Bumex to twice a day and we will monitor. We will consult Oncology for evaluation for li ght chain disease. 2.Hypertension, controlled, not optimal. I again go ahead and increase his hydralazine to 50 mg. w e will follow up. 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 We will consult Hematology. Continue IV iron. We will monitor. 4.Hypomagnesemia, stable. 5.Hyperkalemia, resolved. 6.Hepatitis C as by primary. 7.Anasarca, multifactorial, cardiorenal, hypothyroidism. Continue current supplement with the diure sis. We will monitor. Case discussed with the patient. Verbalized understanding. Discussed with Tammi Farias. MALINDA/ZULEIMA Voice ID: [id number] Report ID: [id number]
[2017-10-12] MEDS ORDERED: BUMETANIDE 2.5 MG/10 ML VIAL IV SCH (21:00)
[2017-10-13] MEDS: MORPHINE 4 MG/ML SYR IV PRN ×3 (06:11→21:41)
[2017-10-13] MEDS: LEVOTHYROXINE SOD 0.075 MG TAB PO SCH (06:11)
[2017-10-13 07:28] LABS: Absolute Lymphocytes (CBC) 0.9 K/uL (0.7-4.9); Absolute Monocytes 0.7 K/uL (0.1-1.3); Absolute Neutrophil 4.1 K/uL (1.8-8.0); Basophils % 0.8 % (0-1.3); Eosinophils % 3.9 % (0-4.4); Hematocrit 26.3 % (39.6-49.0); Lymphocytes % 14.6 % (15.3-44.8); MCV 85.1 fL (80-100); MPV 9.1 fL (7.6-11.3); Monocytes % 12.4 % (3.3-12.3); RBC Red Blood Cell Count 3.09 M/uL (4.33-5.43)
[2017-10-13 07:30] LABS: Albumin 2.6 g/dL (3.2-5.5); Magnesium 1.8 mg/dL (1.8-2.5); Phosphorus 5.4 mg/dL (2.5-4.3); Potassium 4.5 mEq/L (3.6-5.0)
[2017-10-13] MEDS: HYDRALAZINE HCL 25 MG TABLET PO SCH ×3 (09:38→21:37)
[2017-10-13] MEDS: GABAPENTIN 300 MG CAP PO SCH (09:38)
[2017-10-13] MEDS: ISOSORBIDE MONO 10 MG TAB PO SCH ×2 (09:38→21:38)
[2017-10-13] MEDS: AMLODIPINE 10 MG TAB PO SCH (09:38)
[2017-10-13] MEDS: BUMETANIDE 2.5 MG/10 ML VIAL IV SCH (09:38)
[2017-10-13] MEDS: CA ACETATE 667 MG CAP PO SCH ×3 (09:38→17:22)
[2017-10-13] MEDS: DOXAZOSIN 2 MG TAB PO SCH ×2 (09:38→14:00)
[2017-10-13] MEDS: PANTOPRAZOLE 40MG TABLET PO SCH ×2 (09:38→17:23)
--- NOTE | 2017-10-13 12:36 | P.PN ---
Subjective Date of Service: 10/13/17 Primary Care Provider: Jarrett Chief Complaint: CHF exacerbation Subjective: Improving Review of Systems 10-point ROS is otherwise unremarkable Physical Examination - Vital Signs Temperature: 97.6 F Blood Pressure: 182/87 Pulse: 71 Respirations: 18 Pulse Ox (%): 99 - Physical Exam General: Alert, In no apparent distress HEENT: Atraumatic, PERRLA, EOMI Neck: Supple, JVD not distended Respiratory: Clear to auscultation bilaterally, Normal air movement Cardiovascular: Regular rate/rhythm, Normal S1 S2, Edema (1+) Gastrointestinal: Normal bowel sounds, No tenderness Musculoskeletal: No tenderness Integumentary: No rashes Neurological: Normal speech, Normal tone, Normal affect Lymphatics: No axilla or inguinal lymphadenopathy - Studies Laboratory Data (last 24 hrs) 10/13/17 06:00: WBC 6.0, Hgb 8.3 L, Hct 26.3 L, Plt Count 149 L 10/13/17 06:00: Sodium 140, Potassium 4.5, BUN 53 H, Creatinine 2.88 H, Glucose 132 H, Phosphorus 5.4 H, Magnesium 1.8 Assessment & Plan - Problems (Diagnosis) (1) Acute on chronic renal failure Onset Date: 10/09/17 Current Visit: Yes Status: Acute Plan: Patient is fluid overloaded. Continue his diuresis. Qualifiers: Acute renal failure type: unspecified Chronic kidney disease stage: stage 3 (moderate) Qualified Code(s): N17.9 - Acute kidney failure, unspecified; N18.3 - Chronic kidney disease, stage 3 (moderate) (2) CHF (congestive heart failure) Onset Date: 07/15/17 Current Visit: No Status: Acute Plan: Require blood products is worsen in his chf. Will continue diuresis. Will have to hold elliquis due to his gastric ulcer. Qualifiers: Heart failure type: diastolic Heart failure chronicity: chronic Qualified Code(s): I50.32 - Chronic diastolic (congestive) heart failure (3) Gastric ulcer Onset Date: 10/09/17 Current Visit: Yes Status: Acute Plan: HB is improving. Per Dr. Tan can have an outpatient EGD Qualifiers: Gastric ulcer chronicity: chronic Gastric ulcer complication status: without hemorrhage or perforation Qualified Code(s): K25.7 - Chronic gastric ulcer without hemorrhage or perforation (4) Hepatitis C Onset Date: 10/09/17 Current Visit: Yes Status: Acute Plan: He was to start treatment with Dr. Aiken. However he does not regularly follow up. Qualifiers: Viral hepatitis chronicity: chronic Hepatic coma status: without hepatic coma Qualified Code(s): B18.2 - Chronic viral hepatitis C (5) Cocaine abuse Onset Date: 04/08/17 Current Visit: No Status: Chronic Plan: Has been a chronic problem. Have discussed it with him in the past. He states that he is seeing a mental health professional. (6) HTN (hypertension) Onset Date: 07/15/17 Current Visit: No Status: Acute Plan: Not well controlled. He is on amlodipine. Coreg has been held due to Acute CHF exacerbation. Will not start an ALEJANDRO due to worsening creatine. Start the patient on isosorbide. Will adjust as necessary Qualifiers: Hypertension type: essential hypertension Discharge Plan: Home Plan to discharge in: 24 Hours - Code Status/Comfort Care Code Status Assessed: No Code Status: Full Code Physician Review: Patient Assessed, Agree with Above Assessment and Plan Critical Care: No Time Spent Managing Pts Care (In Minutes): 20
--- NOTE | 2017-10-13 13:29 | PN ---
Date of Progress Note: 10/13/2017 Subjective: The patient is doing better. The swelling has been subsided significantly. Blood press ure is still uncontrolled. Physical Examination: Vital Signs: Blood pressure 182/87, pulse of 71, afebrile. The patient had good urine output of 460 0. The patient negative of 2900. The patient weight dropped to 207, the patient lost of from admiss ion 24 pounds. Chest: Clear to auscultation. Heart: S1, S2. Regular. Abdomen: Soft, nontender. Extremities: Trace edema. Laboratory Data: WBC 6, H and H 8.3/26.3, platelets 149. Sodium 140, potassium 4.5, bicarb 28, BUN down to 53, creatinine 2.8, calcium 8.3, phosphorus 5.4, magnesium 1.8, albumin 2.3. Medications: Current medications the patient on include: 1.Cardura 2 mg b.i.d. 2.Hydralazine 50 t.i.d. 3.Isosorbide 10 b.i.d. 4.Norvasc 10 daily. 5.Gabapentin 300 t.i.d. 6.Bumex 2 mg IV b.i.d. 7.Levothyroxine 75. 8.Pantoprazole. 9.PhosLo 1 tablet with each meal. 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 I am going to go ahead and change Bumex to p.o. and we w ill continue to monitor the patient. 2.Hypertension, uncontrolled. I am going to change Norvasc to nifedipine and increase his hydralazi ne to 75 for better blood pressure control. We will add Coreg for better blood pressure control and we will follow up the patient. 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 Could not add ALEJANDRO inhibitor curr ently because of the acute kidney injury. We will monitor awaiting for Hematology input. 4.Gastrointestinal bleed, stable. We will follow up with GI. 5.Iron deficiency anemia. Continue IV iron. 6.Anasarca, multifactorial, secondary to renal and nephrotic range of proteinuria. 7.Hypothyroidism. Continue levothyroxine. We will monitor the patient. Case discussed with Dr. Farias, agreed on the plan. Discussed with the patient, verbalized understand ing. MALINDA/ZULEIMA Voice ID: [id number] Report ID: [id number]
[2017-10-13] MEDS: BUMETANIDE 1 MG TABLET PO SCH ×2 (13:49→21:38)
[2017-10-13] MEDS: GUAIFENESIN/DM 5 ML UCUP PO PRN ×2 (13:58→21:40)
[2017-10-13] MEDS: CARVEDILOL 6.25 MG TAB PO SCH ×2 (14:00→21:39)
[2017-10-13] MEDS: GABAPENTIN 100 MG CAP PO SCH ×2 (14:00→21:39)
[2017-10-13] MEDS: NIFEDIPINE XL 60 MG TABLET PO SCH (14:00)
[2017-10-13] MEDS ORDERED: MAGNESIUM SULFATE 1 gm IVPB 1 GM/100 ML BAG IV ONE (14:00)
[2017-10-13 17:55] LABS: Vitamin D 1,25-Dihydroxy Total <8 pg/mL (18-72); Vitamin D,1,25-OH2, D2 <8 pg/mL
[2017-10-14] MEDS: GUAIFENESIN/DM 5 ML UCUP PO PRN (04:11)
[2017-10-14] MEDS: MORPHINE 4 MG/ML SYR IV PRN (04:12)
[2017-10-14] MEDS: PANTOPRAZOLE 40MG TABLET PO SCH ×2 (06:23→16:33)
[2017-10-14] MEDS: LEVOTHYROXINE SOD 0.075 MG TAB PO SCH (06:23)
[2017-10-14] MEDS: BUMETANIDE 1 MG TABLET PO SCH ×2 (08:37→20:29)
[2017-10-14] MEDS: HYDRALAZINE HCL 25 MG TABLET PO SCH ×3 (08:37→20:32)
[2017-10-14] MEDS: CA ACETATE 667 MG CAP PO SCH ×3 (08:37→16:33)
[2017-10-14] MEDS: NIFEDIPINE XL 60 MG TABLET PO SCH (08:38)
[2017-10-14] MEDS: DOXAZOSIN 2 MG TAB PO SCH ×2 (08:38→13:13)
[2017-10-14] MEDS: CARVEDILOL 6.25 MG TAB PO SCH ×2 (08:38→20:29)
[2017-10-14] MEDS: ISOSORBIDE MONO 10 MG TAB PO SCH ×2 (08:38→20:31)
[2017-10-14] MEDS: GABAPENTIN 100 MG CAP PO SCH ×3 (08:38→20:31)
[2017-10-14 11:07] LABS: UR PROTEIN 174 mg/dl (< 10)
[2017-10-14] MEDS: Morphine 2 MG/2 ML SYR IV PRN ×2 (11:55→20:25)
--- NOTE | 2017-10-14 12:52 | P.PN ---
Subjective Date of Service: 10/14/17 Primary Care Provider: Jarrett Chief Complaint: CHF exacerbation Subjective: No new changes Review of Systems 10-point ROS is otherwise unremarkable Cardiovascular: Edema Physical Examination - Vital Signs Temperature: 97.1 F Blood Pressure: 133/70 Pulse: 70 Respirations: 16 Pulse Ox (%): 98 - Physical Exam General: Alert, In no apparent distress HEENT: Atraumatic, PERRLA, EOMI Neck: Supple, JVD not distended Respiratory: Clear to auscultation bilaterally, Normal air movement Cardiovascular: Regular rate/rhythm, Normal S1 S2, Edema Gastrointestinal: Normal bowel sounds, No tenderness Musculoskeletal: No tenderness Integumentary: No rashes Neurological: Normal speech, Normal tone, Normal affect Lymphatics: No axilla or inguinal lymphadenopathy - Studies Laboratory Data (last 24 hrs) 10/14/17 04:05: Magnesium 2.0 Assessment & Plan - Problems (Diagnosis) (1) Acute on chronic renal failure Onset Date: 10/09/17 Current Visit: Yes Status: Acute Plan: Patient is fluid overloaded. Continue his diuresis. His biopsy results from Jun show light chain proteins. This may be a sign of amyloid or multiple myeloma. Have discussed the patient with Dr Wheatley. She will see the patient. Needs some new labs such as serum electrophoresis order. will have to keep him in house for another day. Qualifiers: Acute renal failure type: unspecified Chronic kidney disease stage: stage 3 (moderate) Qualified Code(s): N17.9 - Acute kidney failure, unspecified; N18.3 - Chronic kidney disease, stage 3 (moderate) (2) CHF (congestive heart failure) Onset Date: 07/15/17 Current Visit: No Status: Acute Plan: Require blood products is worsen in his chf. Will continue diuresis. Will have to hold elliquis due to his gastric ulcer. Qualifiers: Heart failure type: diastolic Heart failure chronicity: chronic Qualified Code(s): I50.32 - Chronic diastolic (congestive) heart failure (3) Gastric ulcer Onset Date: 10/09/17 Current Visit: Yes Status: Acute Plan: HB is improving. Per Dr. Tan can have an outpatient EGD Qualifiers: Gastric ulcer chronicity: chronic Gastric ulcer complication status: without hemorrhage or perforation Qualified Code(s): K25.7 - Chronic gastric ulcer without hemorrhage or perforation (4) Hepatitis C Onset Date: 10/09/17 Current Visit: Yes Status: Acute Plan: He was to start treatment with Dr. Aiken. However he does not regularly follow up. Qualifiers: Viral hepatitis chronicity: chronic Hepatic coma status: without hepatic coma Qualified Code(s): B18.2 - Chronic viral hepatitis C (5) Cocaine abuse Onset Date: 04/08/17 Current Visit: No Status: Chronic Plan: Has been a chronic problem. Have discussed it with him in the past. He states that he is seeing a mental health professional. (6) HTN (hypertension) Onset Date: 07/15/17 Current Visit: No Status: Acute Plan: Not well controlled. He is on amlodipine. Coreg has been held due to Acute CHF exacerbation. Will not start an ALEJANDRO due to worsening creatine. Start the patient on isosorbide. Will adjust as necessary Qualifiers: Hypertension type: essential hypertension Discharge Plan: Home Plan to discharge in: 24 Hours - Code Status/Comfort Care Code Status Assessed: No Code Status: Full Code Physician Review: Patient Assessed, Agree with Above Assessment and Plan Critical Care: No Time Spent Managing Pts Care (In Minutes): 40
[2017-10-14 15:11] LABS: Urine Total Volume 24 Hours 2400 ml
--- NOTE | 2017-10-14 16:21 | P.CNS ---
Date of Consult: 10/14/17 (HEMATOLOGY/ONCOLOGY) Reason for Consultation: Light chain deposition on recent kidney biopsy HPI: Pt is 62 year old man with multiple co-morbidities admitted for management of anemia and CHF exacerbation. His pcp noticed that he was severely anemic with a Hb 5.1/ with worsening edema and shortness of breath. He was apparently on eliquis for a superficial vein thrombus of the left upper extremity. He has h/o gastric ulcers. He has received prbc transfusion with appropriate with improvement in Hb. He has chronic kidney disease with baseline creatinine between 2-3. 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 He reports feeling much better since admission post diuresis and transfusion with improvement in edema and breathing. Denies any pain. Denies fevers, chills , night sweats, bone pain or unusual back pains. He reports having a great appetite. Denies any chest pains, abd pains, N/V/Diarrhea, constipation. Unclear if any change in stool color, bleeding per rectum, melena but reports having GI ulcers. He is awaiting to get treatment for Hep C as well. Denies any urinary complaints, hematuria, dysuria. Reports chronic neuropathy due to diabetes. Denies any headaches, blurred vision, dizziness, imbalance etc. A 14 point ROS was done and pertinent points as in HPI Past Medical History: DM, CKD, Nephrotic range proteinuria, Hep c, Hep B, HTN, HLD, CHF, gastric ulcers, anemia, CVA SH: Smoking, alcohol and drug abuse. FH: unaware of any familial malignancies. Allergies: Steroids Exam: Vitals signs reviewed. Hemodynamically stable General: Appears comfortable, lying in bed. HEENT: Atraumatic, normocephalic. PERRLA. mmm Neck: Supple. No JVD. No carotid bruits. Chestgood air entry, basal creps. Heart: Regular rate and rhythm. S1, S2 normal. No gallop or murmur. [place]+ . Positive bowel sounds. Extremities: edema+ No calf tenderness. Laboratory Data: WBC 4.1, H and H 5.1/16.2, and platelets of 148. Sodium 139, potassium 4.8, bicarb 25, BUN 52, creatinine 2.4, GFR of 33, and calcium 8, TP 5.7/ alb 2.6/ Jane 3.1 Immunofixation- free monoclonal lambda. Assessment/Recommendations: 62 year old with multiple medical problems as above admitted with s/s of anemia / volume overload and acute on chronic kidney failure. Hematology consulted for evaluation of recently noted light chain deposition on kidney biopsy. 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 Labs reveal long standing h/o chronic renal failure. There is some acute on chronic kidney failure at this time. His CKD is likely due to chronic DM/HTN though light chains might contribute to some degree of renal failure as well. Nephrotic range proteinuria is also seen in plasma cell dyscrasia/ amyloidosis etc. For now, he will need laboratory work up which include SPEP with immunofixation , QIg, SFLC, 24 hr urine protein/ UPEP with immunofixation/ kappa lamda quanitifcation. Management of a possible plasma cell dyscrasia if confirmed in the setting of his multiple medical issues like CHF, CKD, DM, gastric ulcers will be quite challenging as well. 2. GI bleed: Appropriate response post PRBC transfusion. He likely has anemia of chronic kidney disease as well. 3. 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 At this time, anticoagulation is contraindicated in the context of GI bleed. 4.CHF, DM, HTN: Management as per his pcp for optimization. . Patient strongly advised to follow up at the [facility] post discharge for further work up and management. Case d/w house staff.
[2017-10-14] MEDS: SOD FERRIC GLUC COMPLX/SUCROSE 250 MG in NA CHLORIDE 0.9% 250 ML IV SCH (22:40)
--- NOTE | 2017-10-15 01:36 | PN ---
Date of Progress Note: 10/14/2017 Chief Complaint: Fluid overload, anasarca, acute kidney injury. History Of Present Illness: Acute kidney injury, nonoliguric, associated with fluid overload. The p atient has been treated with diuretics and Bumex was started. The patient is feeling better. Legs e deborah has improved. Review of Systems: Denies fever or chills. Denies PND or orthopnea. Physical Examination: Lungs: Diminished breath sounds at bases. Heart: S1, S2. Abdomen: Soft, benign. Extremities: Slight edema. Laboratory Data: Blood work; hemoglobin 8.3, WBC 6.0, platelet count 149. Sodium 140, potassium 4.5 , chloride 106, CO2 of 28. BUN 53, creatinine 2.88, phosphorus 5.4. Impression And Plan: 1.Acute on chronic kidney injury. Continue diuretics for volume control. The patient responded to diuretic and maintenance dose was adjusted. 2.Hypertension. Blood pressure in acceptable control. 3.Hypoalbuminemia. Continue to monitor prealbumin level. The patient has history of light chain di sease. Hematology consultation is pending. 4.Hyperphosphatemia. Monitor phosphorus level. Continue low phosphorus diet. 5.Hypertension. The patient is on hydralazine. He cannot take ALEJANDRO inhibitor at this point because of acute kidney injury. EB/MODL Voice ID: [id number] Report ID: [id number]
[2017-10-15] MEDS: Morphine 2 MG/2 ML SYR IV PRN (06:38)
[2017-10-15] MEDS: LEVOTHYROXINE SOD 0.075 MG TAB PO SCH (06:38)
[2017-10-15] MEDS: CA ACETATE 667 MG CAP PO SCH ×2 (09:34→12:11)
[2017-10-15] MEDS: NIFEDIPINE XL 60 MG TABLET PO SCH (09:34)
[2017-10-15] MEDS: BUMETANIDE 1 MG TABLET PO SCH (09:34)
[2017-10-15] MEDS: ISOSORBIDE MONO 10 MG TAB PO SCH (09:34)
[2017-10-15] MEDS: CARVEDILOL 6.25 MG TAB PO SCH (09:34)
[2017-10-15] MEDS: DOXAZOSIN 2 MG TAB PO SCH ×2 (09:34→14:35)
[2017-10-15] MEDS: PANTOPRAZOLE 40MG TABLET PO SCH (09:34)
[2017-10-15] MEDS: HYDRALAZINE HCL 25 MG TABLET PO SCH ×2 (09:34→14:35)
[2017-10-15] MEDS: GABAPENTIN 100 MG CAP PO SCH ×2 (09:34→14:35)
[2017-10-15] MEDS: GUAIFENESIN/DM 5 ML UCUP PO PRN (09:41)
[2017-10-15 09:52] VITALS: O2SAT 98
--- NOTE | 2017-10-15 13:53 | P.DS ---
Admission Date: 10/08/17 Discharge Date: 10/15/17 Primary Care Provider: Jarrett Disposition: ROUTINE DISCHARGE Discharge Condition: FAIR Reason for Admission: CHF exacerbation - Problems (1) Acute on chronic renal failure Onset Date: 10/09/17 Current Visit: Yes Status: Acute Qualifiers: Acute renal failure type: unspecified Chronic kidney disease stage: stage 3 (moderate) Qualified Code(s): N17.9 - Acute kidney failure, unspecified; N18.3 - Chronic kidney disease, stage 3 (moderate) (2) CHF (congestive heart failure) Onset Date: 07/15/17 Current Visit: No Status: Acute Qualifiers: Heart failure type: diastolic Heart failure chronicity: chronic Qualified Code(s): I50.32 - Chronic diastolic (congestive) heart failure (3) Gastric ulcer Onset Date: 10/09/17 Current Visit: Yes Status: Acute Qualifiers: Gastric ulcer chronicity: chronic Gastric ulcer complication status: without hemorrhage or perforation Qualified Code(s): K25.7 - Chronic gastric ulcer without hemorrhage or perforation (4) Hepatitis C Onset Date: 10/09/17 Current Visit: Yes Status: Acute Qualifiers: Viral hepatitis chronicity: chronic Hepatic coma status: without hepatic coma Qualified Code(s): B18.2 - Chronic viral hepatitis C (5) Cocaine abuse Onset Date: 04/08/17 Current Visit: No Status: Chronic (6) HTN (hypertension) Onset Date: 07/15/17 Current Visit: No Status: Acute Qualifiers: Hypertension type: essential hypertension Brief History of Present Illness: Patient came to my office today. Was quite verbal about using cocaine to deal with his pain. He has done this in the past. Had pain and swelling in his legs. He had 3+ edema. Decision was made to send him to the hospital. He has a history of chf, ckd. Large gastric ulcer. Untreated Hep C. He has abused cocaine in the past. Is poorly compliant with follow up. Hospital Course: Patient was admitted fluid overloaded, cocaine positive. He was seen by Dr. Alvarado who recommended bp control and eliquis. We can't comply with eliquis due to his large gastric ulcer and use of cocaine. He was found to be anemic was seen by Dr. Murry who scoped him in Jun. He responded to blood and plasma transfusions. The patient was diuresis under the supervision of Dr. Rose. He has stage 3 to 4 CKD. Diuresis is tricky as we may destroy his kidneys. Dialysis would be a very poor prognosis for this patient. He had a light chain protein deposits from his Jun biopsy. Consult Dr. Marinelli for possible amyloidosis or multiple myleoma. The patient labs were order he should follow up with her as an outpatient for results and treatment. Vital Signs/Physical Exam: Temp Pulse Resp BP Pulse Ox 97.1 F 71 16 134/66 97 10/15/17 12:00 10/15/17 12:00 10/15/17 12:00 10/15/17 12:00 10/15/17 12:00 General: Alert, In no apparent distress HEENT: Atraumatic, PERRLA, EOMI Neck: Supple, JVD not distended Respiratory: Clear to auscultation bilaterally, Normal air movement Cardiovascular: Regular rate/rhythm, Normal S1 S2 Gastrointestinal: Normal bowel sounds, No tenderness Musculoskeletal: No tenderness Integumentary: No rashes Neurological: Normal speech, Normal tone, Normal affect Lymphatics: No axilla or inguinal lymphadenopathy Laboratory Data at Discharge: WBC 6.0 K/uL (4.3-10.9) 10/13/17 06:00 Hgb 8.3 g/dL (13.6-17.9) L 10/13/17 06:00 Hct 26.3 % (39.6-49.0) L 10/13/17 06:00 Plt Count 149 K/uL (152-406) L 10/13/17 06:00 PT 14.2 SECONDS (9.5-12.5) H 10/09/17 18:50 INR 1.20 10/09/17 18:50 APTT 34.5 SECONDS (24.3-36.9) 10/09/17 18:50 Sodium 140 mEq/L (135-145) 10/13/17 06:00 Potassium 4.5 mEq/L (3.6-5.0) 10/13/17 06:00 BUN 53 mg/dL (6-20) H 10/13/17 06:00 Creatinine 2.88 mg/dL (0.61-1.24) H 10/13/17 06:00 Glucose 132 mg/dL (65-120) H 10/13/17 06:00 Phosphorus 5.4 mg/dL (2.5-4.3) H 10/13/17 06:00 Magnesium 2.0 mg/dL (1.8-2.5) 10/14/17 04:05 Total Bilirubin 0.3 mg/dL (0.3-1.2) 10/11/17 05:05 AST 40 IU/L (10-42) 10/11/17 05:05 ALT 27 IU/L (10-60) 10/11/17 05:05 Alkaline Phosphatase 75 IU/L (42-121) 10/11/17 05:05 Troponin I < 0.03 ng/mL (<0.03) 10/08/17 15:40 Home Medications: Amlodipine Besylate 10 mg PO DAILY 06/26/17 Gabapentin [Neurontin*] 300 mg PO TID 06/26/17 Carvedilol [Coreg*] 25 mg PO BID 6AM 6PM #180 tab 08/02/17 Doxazosin Mesylate [Cardura] 2 mg PO BID* #180 tablet 08/02/17 Spironolactone 25 mg PO DAILY #90 tablet 08/02/17 Bumetanide [Bumex] 2 mg PO DAILY 10/08/17 Pantoprazole Sodium [Protonix] 40 mg PO DAILY 10/08/17 Isosorbide [place] (Bid) [Ismo 10 mg Tab*] 10 mg PO BID #180 tab 10/15/17 New Medications: Isosorbide [place] (Bid) [Ismo 10 mg Tab*] 10 mg PO BID #180 tab Diet: ADA Activity: Ad emilie Followup: Miles Tan MD [ACTIVE - CAN ADMIT] - 1-2 Weeks Bonnie Fox MD [ACTIVE - CAN ADMIT] - 1-2 Weeks Gerardo Farias MD [Primary Care Provider] - 1-2 Weeks Irvin Cruz MD [ACTIVE - CAN ADMIT] - 1 Week Time spent managing pt's care (in minutes): 30
--- NOTE | 2017-10-15 14:13 | PN ---
Date of Progress Note: 10/15/2017 Subjective: The patient doing well. Edema has been subsided. Physical Examination: Vital Signs: Blood pressure 134/66, pulse of 71, afebrile. Chest: Clear to auscultation. Heart: S1, S2. Regular. Systolic murmur. Abdomen: Soft, nontender. Extremities: Trace edema. Laboratory Data: WBC 6, H and H 8.3/26.3, platelets 149. Sodium of 140, potassium 4.5, bicarb 28, B UN 53, creatinine 2.8, calcium 8.3, phosphorus 5.4, magnesium 1.8. Medications: Current medications the patient on its include: 1.IV iron. 2.Carvedilol 6.25. 3.Cardura 2 mg b.i.d. 4.Hydralazine 75 mg t.i.d. 5.Isosorbide. 6.Nifedipine 60. 7.Gabapentin 200 t.i.d. 8.Bumex 2 mg p.o. b.i.d. 9.PhosLo. 10.Pantoprazole. 11.Levothyroxine. Assessment And Plan: 1.Acute kidney injury on chronic kidney disease, currently looked to me normal volume, responds to c urrent diuresis dose. The patient's weight has been down to 206. I am going to go ahead and continu e current diuresis dose. 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 Seen by Hematology. We will follow up with [facility]. 3.Anasarca secondary to cardiorenal and hypothyroidism with nephrotic range of proteinuria. Continu e current diuresis. Continue current levothyroxine dose. 4.Iron deficiency anemia and chronic kidney disease. Continue IV iron. We will follow up with [facility]. The patient cleared from the renal standpoint for discharge planning to follow up in the off ice in 2-3 weeks. MALINDA/ZULEIMA Voice ID: [id number] Report ID: [id number]
[2017-10-15 15:03] LABS: Potassium 4.6 mEq/L (3.6-5.0)
[2017-10-15 15:06] LABS: Bilirubin Total 0.4 mg/dL (0.3-1.2); Protein, Total 6.4 g/dL (6.0-8.3)
[2017-10-15 16:57] VITALS: BP 130/67; TEMP 97
[2017-10-16 13:20] LABS: Immunoglobulin A 175 mg/dL (81-463); Immunoglobulin G 1065 mg/dL (694-1618); Immunoglobulin M 74 mg/dL (48-271)
[2017-10-16 19:50] LABS: Urine Bence (Immunoelectr)24hr REPORT
[2017-10-16 21:38] LABS: Albumin, (SPE) 2.6 g/dL (3.8-4.8); Alpha-1-Globulins 0.3 g/dL (0.2-0.3); Alpha-2-Globulins 0.8 g/dL (0.5-0.9); Gamma Globulins 0.9 g/dL (0.8-1.7); INTERPRETATION REPORT
[2017-10-17 17:01] LABS: Beta Globulin 24 HR Urine 12 %; Creatinine 24 Hour Urine 0.87 g/24 h (0.63-2.50); Gamma Globulin, 24hr Urine 12 %; Interpretation: REPORT; Urine Alpha-2-Globulins, 24 Hr 15 %; Urine PEP Abn Protein Band1 REPORT; Urine Protein/Creat Ratio 24Hr 5663 mg/g creat (<=84); Urine Total Volume 24 Hours 2400 mL
== END 2017-10-15 16:42 | disposition home or self-care (01) | DRG 291 ==
LOC: 2ND 14:35
PROVIDERS: ADMIT Internal Medicine; ATTEND Internal Medicine
PROC: 30233K1 Transfusion of Nonautologous Frozen Plasma into Peripheral Vein, Percutaneous Approach (ICD-10-PCS; principal; 2017-10-09)
PROC: 30233N1 Transfusion of Nonautologous Red Blood Cells into Peripheral Vein, Percutaneous Approach (ICD-10-PCS; 2017-10-09)
DX: I13.0 Hypertensive heart and chronic kidney disease with heart failure and stage 1 through stage 4 chronic kidney disease, or unspecified chronic kidney disease (principal); I50.33 Acute on chronic diastolic (congestive) heart failure; N17.9 Acute kidney failure, unspecified; B17.10 Acute hepatitis C without hepatic coma; D62 Acute posthemorrhagic anemia; E85.81 Light chain (AL) amyloidosis; K92.2 Gastrointestinal hemorrhage, unspecified; N04.9 Nephrotic syndrome with unspecified morphologic changes; E11.22 Type 2 diabetes mellitus with diabetic chronic kidney disease; N18.3 Chronic kidney disease, stage 3 (moderate); F14.10 Cocaine abuse, uncomplicated; Z86.73 Personal history of transient ischemic attack (TIA), and cerebral infarction without residual deficits; E78.5 Hyperlipidemia, unspecified; E13.40 Other specified diabetes mellitus with diabetic neuropathy, unspecified; E03.9 Hypothyroidism, unspecified; E83.42 Hypomagnesemia; E87.5 Hyperkalemia; K25.7 Chronic gastric ulcer without hemorrhage or perforation
CPT/HCPCS: 36415; 80053; 80069; 80307; 81003; 81015; 82274; 82607; 82652; 82728; 82746; 82784; 82962; 83036; 83540; 83735; 83883; 83970; 84100; 84156; 84165; 84166; 84439; 84443; 84466; 84484; 85014; 85018; 85025; 85044; 85049; 85610; 85730; 86235; 86334; 86335; 86430; 86850; 86900; 86901; 93306; 97163; J1650; J1940; J2270; J2916; J3475; P9016; P9059

== ENCOUNTER 2017-11-07 15:31 | Observation (INO) | payer OTHER ==
--- NOTE | 2017-11-07 17:07 | RAD REPORT ---
EXAM DESCRIPTION: RAD - Chest Single View - 11/07/2017 4:55 pm CLINICAL HISTORY: Orthopnea, shortness of breath COMPARISON: July 2017 TECHNIQUE: AP portable chest image was obtained 1652 hours . FINDINGS: Hazy opacification is present in the right lung base. This is similar to the prior study. Small right pleural effusion is suspected also similar to the comparison. Left lung base is better ae rated than on the prior study. Vasculature is prominent but slightly better. Mild cardiomegaly is pre sent similar to comparison. No left-sided pleural effusion. No pneumothorax. No gross bony abnormalit y seen. No acute aortic findings suspected. IMPRESSION: Atelectasis and/ or infiltrate in the right base with small right pleural effusion. Find ings are not substantially different from comparison. Vasculature is mildly prominent but improved from comparison. No significant failure or volume overlo ad.
[2017-11-07 17:52] LABS: Absolute Lymphocytes (CBC) 0.8 K/uL (0.7-4.9); Absolute Monocytes 0.4 K/uL (0.1-1.3); Absolute Neutrophil 3.3 K/uL (1.8-8.0); Basophils % 0.5 % (0-1.3); Eosinophils % 4.1 % (0-4.4); Hematocrit 20.8 % (39.6-49.0); Lymphocytes % 16.8 % (15.3-44.8); MCH 27.3 pg (27.0-35.0); MCV 88.1 fL (80-100); MPV 9.9 fL (7.6-11.3); Monocytes % 9.5 % (3.3-12.3); RBC Red Blood Cell Count 2.36 M/uL (4.33-5.43)
[2017-11-07 17:55] LABS: Protime INR 1.25
[2017-11-07 18:05] LABS: Albumin 2.9 g/dL (3.4-5.0); Bilirubin Direct 0.1 mg/dL (0-0.2); Bilirubin Total 0.2 mg/dL (0.2-1.0); Magnesium 2.1 mg/dL (1.8-2.4); Potassium 4.4 mmol/L (3.5-5.1); Protein, Total 6.7 g/dL (6.4-8.2)
--- NOTE | 2017-11-07 18:56 | EDPHYS ---
Physician Documentation [facility] Name: Billy Trejo Age: 62 yrs Sex: Male : 1955 Arrival Date: 11/07/2017 Time: 15:35 Bed External Waiting Private MD: Gerardo Farias ED Physician Avni Neves HPI: 11/07 16:37 This 62 yrs old Black Male presents to ER via Wheelchair with complaints of Anemia. cp 16:37 Onset: The symptoms/episode began/occurred gradually. cp 16:37 Associated signs and symptoms: Pertinent positives: shortness of breath, Pertinent cp negatives: abdominal pain, chest pain. Patient reports he was at physician's office today when blood results showed low hemoglobin level. Patient was referred to ED for evaluation. Patient reports he takes Eliquis for upper extremity DVT. Historical: - Allergies: 15:51 Corticosteroids (Glucocorticoids); lk1 - Home Meds: 16:20 amlodipine 10 mg tab 1 tab once daily [Active]; furosemide 40 mg Oral tab 1 tab once hj daily [Active]; gabapentin 300 mg Oral cap 3 times per day [Active]; levemir 40 unit twice a day for Diabetes [Active]; spironolactone 25 mg Oral tab 1 tab once daily [Active]; - PMHx: 15:51 "spot on lung"; Anemia; Arthritis; CHF; CVA; Diabetes - IDDM; GERD; GI Bleed; High lk1 Cholesterol; Hypertension; Pneumonia; - PSHx: 15:51 None; lk1 - Immunization history:: Adult Immunizations up to date. - Social history:: Smoking status: Patient/guardian denies using tobacco. - Ebola Screening: : Patient negative for fever greater than or equal to 101.5 degrees Fahrenheit, and additional compatible Ebola Virus Disease symptoms Patient denies exposure to infectious person Patient denies travel to an Ebola-affected area in the 21 days before illness onset No symptoms or risks identified at this time. ROS: 16:42 Constitutional: Negative for body aches, chills, fever, poor PO intake. cp 16:42 Eyes: Negative for injury, pain, redness, and discharge. cp 16:42 ENT: Negative for drainage from ear(s), ear pain, sore throat, difficulty swallowing, difficulty handling secretions. 16:42 Cardiovascular: Positive for edema, Negative for chest pain, palpitations. 16:42 Respiratory: Positive for shortness of breath, Negative for cough, wheezing. 16:42 Abdomen/GI: Positive for dark colored stools, Negative for abdominal pain. 16:42 Skin: Negative for cellulitis, rash. 16:42 Neuro: Negative for altered mental status, headache, syncope, near syncope, weakness. 16:42 All other systems are negative. Exam: 16:50 ECG was reviewed by the Attending Physician. cp 16:51 Head/Face: Normocephalic, atraumatic. cp 16:51 Constitutional: The patient appears in no acute distress, alert, awake, non-diaphoretic, non-toxic, well developed, well nourished. 16:51 Eyes: Periorbital structures: appear normal, Pupils: equal, round, and reactive to light and accomodation, Extraocular movements: intact throughout, Conjunctiva: normal, no exudate, no injection, Sclera: no appreciated abnormality, Lids and lashes: appear normal, bilaterally. 16:51 ENT: External ear(s): are unremarkable, Nose: is normal, Mouth: Lips: moist, Oral mucosa: moist, Posterior pharynx: is normal, airway is patent, no erythema, no exudate, Voice: is normal. 16:51 Neck: ROM/movement: is normal, is supple, without pain, no range of motions limitations, no nuchal rigidity, Lymph nodes: no appreciated lymphadenopathy. 16:51 Chest/axilla: Inspection: normal, Palpation: is normal, no crepitus, no tenderness. 16:51 Cardiovascular: Rate: bradycardic, Rhythm: regular, Edema: pedal edema, that is moderate, ankle edema, that is moderate, JVD: is not appreciated. 16:51 Respiratory: the patient does not display signs of respiratory distress, Respirations: normal, no use of accessory muscles, no retractions, no splinting, no tachypnea, labored breathing, is not present, Breath sounds: rales, that are mild, are located in both bases, stridor, is not appreciated, wheezing: is not appreciated. 16:51 Abdomen/GI: Inspection: abdomen appears normal, Bowel sounds: active, all quadrants, Palpation: abdomen is soft and non-tender, in all quadrants, rebound tenderness, is not appreciated, voluntary guarding, is not appreciated, involuntary guarding, is not appreciated. 16:51 Back: pain, is absent, ROM is normal. 16:51 : Rectal exam: Stool: dark brown, Guaiac testing: results were positive for occult blood. 16:51 Skin: cellulitis, is not appreciated, no rash present. 16:51 Neuro: Orientation: to person, place \\T\\ time. Mentation: is normal, Motor: moves all fours, strength is normal. Vital Signs: 15:51 BP 129 / 62; Pulse 58; Resp 15; Temp 97.4(TE); Pulse Ox 100% on R/A; Weight 92.53 kg lk1 (R); Height 5 ft. 9 in. (175.26 cm) (R); Pain 9/10; 16:30 BP 132 / 64; Pulse 59; Resp 18; Pulse Ox 100% on R/A; hj 17:30 BP 128 / 61; Pulse 60; Resp 18; Pulse Ox 100% on R/A; hj 18:38 BP 127 / 65; Pulse 58; Resp 18; Pulse Ox 100% on R/A; hj 20:50 BP 145 / 73; Pulse 61; Resp 15; Pulse Ox 100% on R/A; tl2 15:51 Body Mass Index 30.13 (92.53 kg, 175.26 cm) lk1 Procedures: 16:45 Peripheral line: by aseptic technique a peripheral line was placed in the right external jugular vein. MDM: 16:18 Patient medically screened. 18:55 Data reviewed: vital signs, nurses notes, lab test result(s), EKG, radiologic studies, plain films. 18:55 Counseling: I had a detailed discussion with the patient and/or guardian regarding: the historical points, exam findings, and any diagnostic results supporting the discharge/admit diagnosis, the need for further work-up and treatment in the hospital. 19:01 Physician consultation: Gerardo Farias MD was called at 18:55, was contacted at 18:55, regarding admission, to the telemetry unit. patient's condition, would like further tests performed, UDS. 11/07 16:37 Order name: Type And Screen 11/07 16:37 Order name: Basic Metabolic Panel; Complete Time: 18:35 11/07 18:36 Interpretation: Normal except: CL 110; GLUC 170; BUN 59; CRE 2.90; GFR 27; CA 8.0. cp 11/07 16:37 Order name: CBC with Diff; Complete Time: 18:35 cp 11/07 18:35 Interpretation: Normal except: RBC 2.36; HGB 6.4; HCT 20.8; MCV 88.1; MCHC 31.0; RDW cp 18.9. 11/07 16:37 Order name: LFT's; Complete Time: 18:35 cp 11/07 18:36 Interpretation: Normal except: AST 58; ALK 125; ALB 2.9; GLOB 3.8; A/G 0.8. cp 11/07 16:37 Order name: Magnesium; Complete Time: 18:35 cp 11/07 16:37 Order name: NT PRO-BNP; Complete Time: 18:35 cp 11/07 18:36 Interpretation: Abnormal: NT PRO-BNP 1758. cp 11/07 16:37 Order name: PT-INR; Complete Time: 18:35 cp 11/07 18:36 Interpretation: Normal except: PT 14.8. cp 11/07 16:37 Order name: Ptt, Activated; Complete Time: 18:35 cp 11/07 18:37 Interpretation: Abnormal: PTT 37.6. cp 11/07 16:37 Order name: XRAY Chest (1 view); Complete Time: 18:35 cp 11/07 18:52 Order name: UDS; Complete Time: 21:25 cp 11/07 21:25 Interpretation: Normal except: ELA POSITIVE. cp 11/07 19:42 Order name: Urine Dipstick--Ancillary (enter results); Complete Time: 21:25 rg2 11/07 21:26 Interpretation: Normal except: UBLD 1+; UPROT 3+. cp 11/07 20:08 Order name: Hematocrit EDMS 11/07 20:08 Order name: Hemoglobin EDMS 11/07 16:37 Order name: Cardiac monitoring; Complete Time: 16:38 cp 11/07 16:37 Order name: O2 Per Protocol; Complete Time: 16:38 cp 11/07 16:37 Order name: O2 Sat Monitoring; Complete Time: 16:38 cp 11/07 16:37 Order name: Urine Dipstick-Ancillary (obtain specimen); Complete Time: 19:43 cp 11/07 17:32 Order name: EKG Electrocardiogram EDMS 06/28 18:57 Order name: Ivet. Order: hold eliquis medication; Complete Time: 18:59 cp EC:50 Rate is 57 beats/min. Rhythm is regular. NJ interval is normal. QRS interval is normal. cp QT interval is normal. No ST changes noted. Interpreted by me. Reviewed by me. Administered Medications: 18:51 Drug: ProTONIX 40 mg Route: IVP; Site: right subclavian; hj 19:09 Follow up: Response: No adverse reaction 21:18 Drug: Lasix 40 mg Route: IVP; Site: right jugular; tl2 Disposition: 11/07/17 18:56 Hospitalization ordered by Gerardo Farias for Observation. Preliminary diagnosis are Anemia in chronic diseases classified elsewhere, Combined systolic (congestive) and diastolic (congestive) heart failure. - Bed requested for Telemetry/MedSurg (observation). - Status is Observation. bb - Condition is Stable. - Problem is an ongoing problem. - Symptoms are unchanged. UTI on Admission? No Addendum: 11/14/2017 11:30 Co-signature as Attending Physician, Avni Neves MD I agree with the assessment and k dr plan of care. Signatures: Dispatcher [employer] EDNE Payal Man RN RN kl Rittger, Kevin, MD MD [facility] Migdalia Agustin RN RN bb Joaquin, Henry RN Emerson Guzman PA PA cp Brittney Glass RN RN lk1 Sophia Diane RN RN tl2 Corrections: (The following items were deleted from the chart) 11/07 18:36 18:35 Normal except: CL 110; GLUC 170; BUN 59; CRE 2.90; GFR 27. cp cp 20:14 18:56 Hospitalization Ordered by Gerardo Farias MD for Observation. Preliminary diagnosis kl is Anemia in chronic diseases classified elsewhere; Combined systolic (congestive) and diastolic (congestive) heart failure. Bed requested for Telemetry/MedSurg (observation). Status is Observation. Condition is Stable. Problem is an ongoing problem. Symptoms are unchanged. UTI on Admission? No. cp 23:27 20:14 11/07/2017 18:56 Hospitalization Ordered by Gerardo Farias MD for Observation. bb Preliminary diagnosis is Anemia in chronic diseases classified elsewhere; Combined systolic (congestive) and diastolic (congestive) heart failure. Bed requested for Telemetry/MedSurg (observation). Status is Observation. Condition is Stable. Problem is an ongoing problem. Symptoms are unchanged. UTI on Admission? No. kl
--- NOTE | 2017-11-07 18:56 | ER ---
Nurse's Notes [facility] Name: Billy Trejo Age: 62 yrs Sex: Male : 1955 Arrival Date: 11/07/2017 Time: 15:35 Bed External Waiting Private MD: Gerardo Farias Diagnosis: Anemia in chronic diseases classified elsewhere;Combined systolic (congestive) and diastolic (congestive) heart failure Presentation: 11/07 15:49 Presenting complaint: Patient states: "I was at the [facility] place in [place] because lk1 my blood count is low. I get blood every 2-3 months and I need some now.". Transition of care: patient was not received from another setting of care. Onset of symptoms is unknown. Risk Assessment: Do you want to hurt yourself or someone else? Patient reports no desire to harm self or others. Initial Sepsis Screen: Does the patient meet any 2 criteria? No. Patient's initial sepsis screen is negative. Does the patient have a suspected source of infection? No. Patient's initial sepsis screen is negative. Care prior to arrival: None. 15:49 Method Of Arrival: Wheelchair lk1 15:49 Acuity: BRAD 3 lk1 Triage Assessment: 16:13 General: Appears in no apparent distress. uncomfortable. General: Behavior is calm, hj cooperative, appropriate for age. Pain: Denies pain. Historical: - Allergies: 15:51 Corticosteroids (Glucocorticoids); lk1 - Home Meds: 16:20 amlodipine 10 mg tab 1 tab once daily [Active]; furosemide 40 mg Oral tab 1 tab once hj daily [Active]; gabapentin 300 mg Oral cap 3 times per day [Active]; levemir 40 unit twice a day for Diabetes [Active]; spironolactone 25 mg Oral tab 1 tab once daily [Active]; - PMHx: 15:51 "spot on lung"; Anemia; Arthritis; CHF; CVA; Diabetes - IDDM; GERD; GI Bleed; High lk1 Cholesterol; Hypertension; Pneumonia; - PSHx: 15:51 None; lk1 - Immunization history:: Adult Immunizations up to date. - Social history:: Smoking status: Patient/guardian denies using tobacco. - Ebola Screening: : Patient negative for fever greater than or equal to 101.5 degrees Fahrenheit, and additional compatible Ebola Virus Disease symptoms Patient denies exposure to infectious person Patient denies travel to an Ebola-affected area in the 21 days before illness onset No symptoms or risks identified at this time. Screenin:13 Abuse screen: Denies threats or abuse. Denies injuries from another. Nutritional hj screening: No deficits noted. Tuberculosis screening: No symptoms or risk factors identified. Fall Risk None identified. Assessment: 16:16 General: Appears in no apparent distress. uncomfortable, Behavior is calm, cooperative, hj appropriate for age, reports H/H- 6.9/22.3. Pain: Denies pain. Neuro: Level of Consciousness is awake, alert, obeys commands, Oriented to person, place, time, situation, Appropriate for age. Cardiovascular: Capillary refill < 3 seconds Patient's skin is warm and dry. Respiratory: Airway is patent Respiratory effort is even, unlabored, Respiratory pattern is regular, symmetrical. GI: No signs and/or symptoms were reported involving the gastrointestinal system. : No signs and/or symptoms were reported regarding the genitourinary system. EENT: No signs and/or symptoms were reported regarding the EENT system. Derm: No signs and/or symptoms reported regarding the dermatologic system. Musculoskeletal: No signs and/or symptoms reported regarding the musculoskeletal system. 17:30 Reassessment: awaiting results and POC;. Reassessment: pt is hard stick, requested aislinn Oliver RN to try IV insertion;. 18:35 Reassessment: R EJ was inserted by PA;. Reassessment: Patient and/or family updated on plan of care and expected duration. Pain level reassessed. Patient is alert, oriented x 3, equal unlabored respirations, skin warm/dry/pink. awaiting results and POC;. Vital Signs: 15:51 BP 129 / 62; Pulse 58; Resp 15; Temp 97.4(TE); Pulse Ox 100% on R/A; Weight 92.53 kg lk1 (R); Height 5 ft. 9 in. (175.26 cm) (R); Pain 9/10; 16:30 BP 132 / 64; Pulse 59; Resp 18; Pulse Ox 100% on R/A; hj 17:30 BP 128 / 61; Pulse 60; Resp 18; Pulse Ox 100% on R/A; hj 18:38 BP 127 / 65; Pulse 58; Resp 18; Pulse Ox 100% on R/A; hj 20:50 BP 145 / 73; Pulse 61; Resp 15; Pulse Ox 100% on R/A; tl2 15:51 Body Mass Index 30.13 (92.53 kg, 175.26 cm) lk1 ED Course: 15:35 Patient arrived in ED. mr 15:35 Gerardo Farias MD is Private Physician. mr 15:50 Triage completed. lk1 15:53 Arm band placed on left wrist. lk1 16:13 Billy Mccall, RN is Primary Nurse. hj 16:13 Patient has correct armband on for positive identification. Placed in gown. Bed in low hj position. Call light in reach. Side rails up X 1. 16:17 Emerson Soares PA is PHCP. cp 16:17 Avni Neves MD is Attending Physician. cp 16:54 X-ray completed. Portable x-ray completed in exam room. Patient tolerated procedure bb2 well. 16:55 XRAY Chest (1 view) In Process Unspecified. EDMS 17:11 EKG done, by fuel quality tech. reviewed by Emerson JACOBO. 3 17:37 Missed attempt(s): 22 gauge in left forearm. Bleeding controlled, band aid applied, iw catheter tip intact. 17:39 Initial lab(s) drawn, by ED staff, sent to lab. Inserted saline lock: 18 gauge in right iw EJ, using aseptic technique. Blood collected. IV inserted by ODALIS Perry. 18:55 Gerardo Farias MD is Hospitalizing Provider. cp 21:41 Notified Nurse Practitioner and/or Physician Washer Cutter of a critical lab result(s), Hgb bb 6.3, HCT 19.2 C. Fany JACOBO notified. Administered Medications: 18:51 Drug: ProTONIX 40 mg Route: IVP; Site: right subclavian; hj 19:09 Follow up: Response: No adverse reaction hj 21:18 Drug: Lasix 40 mg Route: IVP; Site: right jugular; tl2 Outcome: 18:56 Decision to Hospitalize by Provider. cp 23:27 Patient left the ED. bb Signatures: Dispatcher [facility] Ingris Aguirre mr Migdalia Agustin RN RN bb Melody Younger RN RN Cal, Billy, RN RN Emerson Sen PA PA cp Kluge, Leah, RN RN lk1 Sophia Diane RN RN tl2 Teri Turk bb2 Mara Meléndez 3 Corrections: (The following items were deleted from the chart) 16:54 16:44 X-ray completed. Portable x-ray completed in exam room. Patient tolerated bb2 procedure well. bb2 16:54 16:45 Patient moved back from radiology. bb2 bb2
[2017-11-07] MEDS ORDERED: PANTOPRAZOLE 40 MG INJ ONE (19:02)
[2017-11-07] MEDS ORDERED: SODIUM CHLORIDE 0.9% 10ML INJ IV PRN (20:05)
[2017-11-07] MEDS ORDERED: IPRATROPIUM BROM 0.5MG/2.5ML NEB PRN (20:08)
[2017-11-07] MEDS ORDERED: ONDANSETRON 4 MG/2 ML VIAL IV PRN (20:08)
[2017-11-07] MEDS ORDERED: ALBUTEROL 2.5 MG/3 ML NEB SOL NEB PRN (20:08)
[2017-11-07 20:29] LABS: Barbiturates NEGATIVE (NEGATIVE); Benzodiazepines NEGATIVE (NEGATIVE); Cocaine POSITIVE (NEGATIVE); METHAMPHETAM NEGATIVE (NEGATIVE); Methadone NEGATIVE (NEGATIVE); Opiates NEGATIVE (NEGATIVE); Phencyclidine NEGATIVE (NEGATIVE); THC Cannibis NEGATIVE (NEGATIVE)
[2017-11-07 20:39] LABS: Urine Blood 1+ (NEG); Urine Glucose TRACE (NEG); Urine Protein 3+ (NEG); Urine Specific Gravity 1.025 (1.005-1.030)
[2017-11-07] MEDS ORDERED: FUROSEMIDE 40 MG/4 ML VIAL IV SCH (21:00)
[2017-11-07] MEDS: PANTOPRAZOLE 40 MG INJ IVP SCH (21:00)
[2017-11-07] MEDS ORDERED: FUROSEMIDE 40 MG/4 ML VIAL ONE (21:17)
[2017-11-07 21:31] LABS: Hematocrit 19.2 % (39.6-49.0)
[2017-11-07] MEDS ORDERED: TRAMADOL HCL 50 MG TAB PO ONE (22:15)
[2017-11-07] MEDS ORDERED: NA CHLORIDE 0.9% 250 ML ONE (23:18)
--- NOTE | 2017-11-08 06:24 | EKG ---
Test Date: 2017-11-07 Test Time: 16:44:38 Senior Contracts Manager: [employer] MEASUREMENT RESULTS: Intervals: Rate: 57 AR: 190 QRSD: 100 QT: 478 QTc: 465 [place]: P: 33 AR: 190 QRS: -12 T: 35 INTERPRETIVE STATEMENTS: Sinus bradycardia Otherwise normal ECG Compared to ECG 07/09/2017 02:04:31 Sinus rhythm no longer present Electronically Signed On 11-08-17 06:24:26 CDT by Justo Fofana
[2017-11-08 06:39] LABS: Absolute Lymphocytes (CBC) 0.6 K/uL (0.7-4.9); Absolute Monocytes 0.5 K/uL (0.1-1.3); Absolute Neutrophil 4.5 K/uL (1.8-8.0); Basophils % 0.3 % (0-1.3); Eosinophils % 2.8 % (0-4.4); Hematocrit 23.8 % (39.6-49.0); Lymphocytes % 10.9 % (15.3-44.8); MCH 28.6 pg (27.0-35.0); MCV 85.5 fL (80-100); MPV 9.5 fL (7.6-11.3); Monocytes % 8.3 % (3.3-12.3); RBC Red Blood Cell Count 2.79 M/uL (4.33-5.43)
[2017-11-08 07:00] LABS: Potassium 4.6 mmol/L (3.5-5.1)
[2017-11-08] MEDS: PANTOPRAZOLE 40 MG INJ IVP SCH ×2 (09:28→21:23)
[2017-11-08] MEDS ORDERED: D50W 25 GM/50 ML SYRINGE IV PRN (11:38)
[2017-11-08] MEDS ORDERED: GLUCAGON 1 MG/VIAL IM PRN (11:38)
--- NOTE | 2017-11-08 11:45 | P.HP ---
Certification for Inpatient Patient admitted to: Inpatient With expected LOS: >2 Midnights Practitioner: I am a practitioner with admitting privileges, knowledge of patient current condition, hospital course, and medical plan of care. Services: Services provided to patient in accordance with Admission requirements found in Title 42 Section 412.3 of the Code of Federal Regulations Patient History Date of Service: 11/08/17 Primary Care Provider: Jarrett Reason for admission: Chronic anemia History of Present Illness: Patient was at his oncologist in [facility]. Was found to have a hb 6.9 and my office was called. Sent the patient to ER. He was found to have a hb 6.4. His guiac was negative. He has a history of chf, HTN, chronic renal failure stage 3 -4. He has a had a gastric ulcer. Was at the oncologist for light chain disease. The patient also struggles with cocaine abuse. He denies any use. However his drug screen is positive for cocaine Allergies Corticosteroids (Glucocorticoids) Allergy (Verified 10/08/17 15:06) Anaphylaxis Home Medications: Amlodipine Besylate 10 mg PO DAILY 06/26/17 Gabapentin [Neurontin*] 300 mg PO TID 06/26/17 Carvedilol [Coreg*] 25 mg PO BID 6AM 6PM #180 tab 08/02/17 Spironolactone 25 mg PO DAILY #90 tablet 08/02/17 Bumetanide [Bumex] 2 mg PO DAILY 10/08/17 Pantoprazole Sodium [Protonix] 40 mg PO DAILY 10/08/17 Isosorbide [place] (Bid) [Ismo 10 mg Tab*] 10 mg PO BID #180 tab 10/15/17 traMADol HCL [Ultram*] 50 mg PO TID PRN #20 tab 10/15/17 Doxazosin Mesylate [Cardura] 2 mg PO SEECOM 11/08/17 - Past Medical/Surgical History Has patient received pneumonia vaccine in the past: No Diabetic: Yes -: HTN -: IDDM -: Arthritis -: high cholesterol -: cva- 2014 -: anemia -: drug abuse -: colonoscopy -: EGD - Family History Father -: Heart disease Notes: NO REAL HISTORY IS KNOWN OTHER THAN WHAT WAS TOLD TO HIM Mother -: Cancer Notes: NO REAL HISTORY KNOWN OTHER THAN WHAT WAS TOLD TO HIM - Social History Smoking Status: Former smoker Alcohol use: Yes CD- Drugs: Yes Caffeine use: Yes Place of Residence: Home Review of Systems 10-point ROS is otherwise unremarkable Physical Examination - Vital Signs Temperature: 98.8 F Blood Pressure: 148/73 Pulse: 71 Respirations: 18 Pulse Ox (%): 98 - Physical Exam General: Alert, In no apparent distress HEENT: Atraumatic, PERRLA, Mucous membr. moist/pink, EOMI, Sclerae nonicteric Neck: Supple, 2+ carotid pulse no bruit, No LAD, Without JVD or thyroid abnormality Respiratory: Clear to auscultation bilaterally, Normal air movement Cardiovascular: Regular rate/rhythm, Normal S1 S2, Edema (2+) Gastrointestinal: Normal bowel sounds, No tenderness Musculoskeletal: No tenderness Integumentary: No rashes Neurological: Normal gait, Normal speech, Normal strength at 5/5 x4 extr, Normal tone, Normal affect Lymphatics: No axilla or inguinal lymphadenopathy - Studies Laboratory Data (last 24 hrs) 11/07/17 17:25: PT 14.8 H, INR 1.25, APTT 37.6 H 11/07/17 17:25: WBC 4.7, Hgb 6.4 L*, Hct 20.8 L*, Plt Count 162 11/07/17 17:25: Sodium 141, Potassium 4.4, BUN 59 H, Creatinine 2.90 H, Glucose 170 H, Magnesium 2.1, Total Bilirubin 0.2, AST 58 H, ALT 50, Alkaline Phosphatase 125 H Assessment and Plan - Problems (Diagnosis) (1) Anemia Onset Date: 09/05/15 Current Visit: No Status: Acute Plan: Guiac negative. He recieved 2 units in the ER. Will see if he stays stable. Start feeding the patient. He has multiple causes for his anemia. Qualifiers: Anemia type: due to chronic kidney disease Chronic kidney disease stage: stage 4 (severe) Qualified Code(s): N18.4 - Chronic kidney disease, stage 4 ( severe); D63.1 - Anemia in chronic kidney disease (2) CHF (congestive heart failure) Onset Date: 07/15/17 Current Visit: No Status: Acute Plan: Patient has some pedal edema. Will start him on lasix. Keep him in house for a fluid observation Qualifiers: Heart failure type: diastolic Heart failure chronicity: chronic Qualified Code(s): I50.32 - Chronic diastolic (congestive) heart failure (3) Diabetes Onset Date: 07/15/17 Current Visit: No Status: Acute Plan: continue sliding scale insulin Qualifiers: Diabetes mellitus type: type 2 Diabetes mellitus manager long term care insulin use: with manager long term care use Diabetes mellitus complication status: without complication Qualified Code(s): E11.9 - Type 2 diabetes mellitus without complications; Z79.4 - assisted (current) use of insulin (4) Gastric ulcer Onset Date: 10/09/17 Current Visit: No Status: Acute Plan: negative guiac. will continue to monitor his hb Qualifiers: Gastric ulcer chronicity: chronic Gastric ulcer complication status: without hemorrhage or perforation Qualified Code(s): K25.7 - Chronic gastric ulcer without hemorrhage or perforation (5) Hepatitis C Onset Date: 10/09/17 Current Visit: No Status: Acute Plan: Has to start treatment with Dr. Aiken Qualifiers: Viral hepatitis chronicity: chronic Hepatic coma status: without hepatic coma Qualified Code(s): B18.2 - Chronic viral hepatitis C (6) Cocaine abuse Onset Date: 04/08/17 Current Visit: No Status: Chronic Plan: Will not press the patient on this as he insists he is not using. Discharge Plan: Home Plan to discharge in: 48 Hours - Advance Directives Does patient have a Living Will: No Does patient have a Durable POA for Healthcare: No - Code Status/Comfort Care Code Status Assessed: No Code Status: Full Code Physician Review: Patient Assessed, Agree with Above Assessment and Plan Critical Care: No Time Spent Managing Pts Care (In Minutes): 45
[2017-11-08] MEDS: GABAPENTIN 300 MG CAP PO SCH ×2 (13:40→21:23)
[2017-11-08] MEDS: DOXAZOSIN 2 MG TAB PO SCH (13:40)
[2017-11-08] MEDS: INSULIN -REGULAR HUMAN 50 UNIT/0.5 ML ML SQ SCH ×2 (16:06→21:00)
[2017-11-08] MEDS: CARVEDILOL 25 MG TAB PO SCH (17:23)
[2017-11-08] MEDS: ISOSORBIDE MONO 10 MG TAB PO SCH (21:23)
[2017-11-08] MEDS: TRAMADOL HCL 50 MG TAB PO PRN (21:29)
--- NOTE | 2017-11-09 02:25 | CON ---
Date of Consultation: 11/08/2017 Chief Complaint: Acute on chronic kidney injury. History Of Present Illness: Acute kidney injury, severe. The patient was found to have elevated creatinine up to 3.16. The patient has chronic kidney disease. Baseline creatinine level is 2.39. Renal function has not improved significantly since yesterday. The patient has history of chronic kidney disease stage 3B. Previously, GFR was at baseline, was ranging from 32 to 34. The patient had multiple admissions for acute on chronic kidney injury with fluid overload. The patient was found to have severe anemia, hemoglobin was 6.9 , and the patient was referred to the hospital. Stool guaiacs were negative. The patient has history of congestive heart failure, chronic kidney disease 3B, hypertension, hypertensive kidney disease, and history of cocaine abuse. He was hospitalized back in September for acute on chronic kidney injury. He has history of congestive heart failure, cardiorenal syndrome, anasarca. Baseline creatinine level is ranging from 1.8 to 2.4. 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 Review of Systems: Constitutional: The patient denies fever, chills. Eyes: Denies new vision changes. Ears, Nose, Mouth, and Throat: Denies sore throat or earache. Respiratory: Denies PND, orthopnea. Cardiovascular: Denies chest pain or palpitation. GI: Denies nausea, vomiting. : Denies dysuria, hematuria. Musculoskeletal: Denies muscle aches. Has some swelling and generalized edema was present. All other systems reviewed and all are negative. Past Medical History: Hypertension; insulin-dependent diabetes mellitus; osteoarthritis; hypercholesterolemia; CVA in 2014; anemia, multifactorial; history of colonoscopy; drug abuse. Past Surgical History: EGD. Family History: Father had heart disease. No history of kidney disease. Social History: Denies tobacco, alcohol, or illicit drugs. He is a former smoker. Physical Examination: General: The patient is awake, follows commands. Eyes: Anicteric sclerae. EOMI. Ears, Nose, Mouth, and Throat: Oral mucosa moist. No pallor. Vital Signs: Blood pressure 148/73, temperature 98.8, heart rate 71, respiratory rate 18, SpO2 98%. Cardiovascular: S1, S2. No pericardial friction rub. Abdomen: Obese, soft, nontender. No rebound. No guarding. Extremities: 2+ edema in both lower extremities, some edema, up to 1+ in upper extremities. Skin: Warm and dry. No skin rashes. Neurological: Moving extremities. Cranial nerves intact. Psychiatric: Alert and oriented x3. Normal affect. Laboratory Data: PT 14.8, INR 1.25, PTT 37.6. WBC 4.7, hemoglobin 6.4, hematocrit 20.8, platelets 162,000. Sodium 141, potassium 4.4, BUN 59, creatinine 2.9, glucose 170, magnesium 2.1, total bilirubin 0.2. AP 125, ALT 50 , AST 58. Impression And Plan: 1. Severe anemia. The patient received 2 units of bright red blood cells transfusion. The patient has some chronic kidney disease stage 3 and related anemia due to chronic kidney disease, although the patient developed acute on chronic acute kidney injury as well as severe acute anemia. The patient required blood transfusion. 2. Congestive heart failure with fluid overload. Continue Lasix, low-sodium diet. The patient may need additional blood pressure medications, plan is to advance blood pressure medication for adequate blood pressure control. The patient has history of chronic diastolic congestive heart failure. Continue diuretic and low Sodium diet , monitor urine output and fluid balance. 3. Diabetes mellitus. Continue insulin according to the sliding scale. Monitor proteinuria. 4. History of gastric ulcer. Continue PPI as needed. There is no evidence of bleeding. 5. Hepatitis C. The patient will be seen by transit coach operator. 6. Acute on chronic kidney injury. There is a risk of worsening of the renal function due to nonsteroidal anti-inflammatory medication. Avoid nonsteroidal anti-inflammatory medication. SAVANNAH Voice ID: [id number] Report ID: [id number] KATIE
[2017-11-09 05:03] LABS: Absolute Monocytes 0.6 K/uL (0.1-1.3)
[2017-11-09 05:07] LABS: Absolute Lymphocytes (CBC) 0.9 K/uL (0.7-4.9); Absolute Neutrophil 4.1 K/uL (1.8-8.0); Basophils % 0.3 % (0-1.3); Eosinophils % 2.7 % (0-4.4); Hematocrit 22.6 % (39.6-49.0); Lymphocytes % 15.8 % (15.3-44.8); MCH 28.7 pg (27.0-35.0); MCV 86.6 fL (80-100); Monocytes % 10.1 % (3.3-12.3); RBC Red Blood Cell Count 2.61 M/uL (4.33-5.43)
[2017-11-09 05:20] LABS: Albumin 2.5 g/dL (3.4-5.0); Bilirubin Total 0.3 mg/dL (0.2-1.0); Potassium 4.7 mmol/L (3.5-5.1); Protein, Total 5.9 g/dL (6.4-8.2)
[2017-11-09 05:39] LABS: Thyroid Stimulating Hormone 5.62 uIU/mL (0.36-3.74)
[2017-11-09] MEDS: CARVEDILOL 25 MG TAB PO SCH ×2 (06:01→17:00)
[2017-11-09 06:16] VITALS: BMI 28.1
[2017-11-09] MEDS: INSULIN -REGULAR HUMAN 50 UNIT/0.5 ML ML SQ SCH ×4 (07:30→21:00)
[2017-11-09] MEDS: SPIRONOLACTONE 25 MG TABLET PO SCH (09:43)
[2017-11-09] MEDS: BUMETANIDE 1 MG TABLET PO SCH (09:43)
[2017-11-09] MEDS: DOXAZOSIN 2 MG TAB PO SCH ×2 (09:44→13:54)
[2017-11-09] MEDS: GABAPENTIN 300 MG CAP PO SCH ×3 (09:44→22:24)
[2017-11-09] MEDS: PANTOPRAZOLE 40 MG INJ IVP SCH ×2 (09:44→22:24)
[2017-11-09] MEDS: FUROSEMIDE 40 MG/4 ML VIAL IV SCH (09:44)
[2017-11-09] MEDS: ISOSORBIDE MONO 10 MG TAB PO SCH ×2 (09:45→22:24)
[2017-11-09] MEDS: AMLODIPINE 10 MG TAB PO SCH (09:48)
--- NOTE | 2017-11-09 12:04 | P.PN ---
Subjective Date of Service: 11/09/17 Primary Care Provider: Jarrett Chief Complaint: Chronic anemia Subjective: Improving Review of Systems 10-point ROS is otherwise unremarkable Physical Examination - Vital Signs Temperature: 97.7 F Blood Pressure: 149/75 Pulse: 61 Respirations: 16 Pulse Ox (%): 95 - Physical Exam General: Alert, In no apparent distress HEENT: Atraumatic, PERRLA, EOMI Neck: Supple, JVD not distended Respiratory: Clear to auscultation bilaterally, Normal air movement Cardiovascular: Regular rate/rhythm, Normal S1 S2 Gastrointestinal: Normal bowel sounds, No tenderness Musculoskeletal: No tenderness Integumentary: No rashes Neurological: Normal speech, Normal tone, Normal affect Lymphatics: No axilla or inguinal lymphadenopathy Assessment & Plan - Problems (Diagnosis) (1) Anemia Onset Date: 09/05/15 Current Visit: No Status: Acute Plan: Guiac negative. Slight drop in his hb today. Will recheck him at noon. If he remains stable we may discharge him or transfuse him Qualifiers: Anemia type: due to chronic kidney disease Chronic kidney disease stage: stage 4 (severe) Qualified Code(s): N18.4 - Chronic kidney disease, stage 4 ( severe); D63.1 - Anemia in chronic kidney disease (2) CHF (congestive heart failure) Onset Date: 07/15/17 Current Visit: No Status: Acute Plan: Patient has some pedal edema. Will start him on lasix. Keep him in house for a fluid observation Qualifiers: Heart failure type: diastolic Heart failure chronicity: chronic Qualified Code(s): I50.32 - Chronic diastolic (congestive) heart failure (3) Diabetes Onset Date: 07/15/17 Current Visit: No Status: Acute Plan: continue sliding scale insulin Qualifiers: Diabetes mellitus type: type 2 Diabetes mellitus intermediate school teacher insulin use: with intermediate school teacher use Diabetes mellitus complication status: without complication Qualified Code(s): E11.9 - Type 2 diabetes mellitus without complications; Z79.4 - detention (current) use of insulin (4) Gastric ulcer Onset Date: 10/09/17 Current Visit: No Status: Acute Plan: negative guiac. will continue to monitor his hb Qualifiers: Gastric ulcer chronicity: chronic Gastric ulcer complication status: without hemorrhage or perforation Qualified Code(s): K25.7 - Chronic gastric ulcer without hemorrhage or perforation (5) Hepatitis C Onset Date: 10/09/17 Current Visit: No Status: Acute Plan: Has to start treatment with Dr. Aiken Qualifiers: Viral hepatitis chronicity: chronic Hepatic coma status: without hepatic coma Qualified Code(s): B18.2 - Chronic viral hepatitis C (6) Cocaine abuse Onset Date: 04/08/17 Current Visit: No Status: Chronic Plan: Will not press the patient on this as he insists he is not using. Discharge Plan: Home Plan to discharge in: 24 Hours - Code Status/Comfort Care Code Status Assessed: No Code Status: Full Code Physician Review: Patient Assessed, Agree with Above Assessment and Plan Critical Care: No Time Spent Managing Pts Care (In Minutes): 20
[2017-11-09 18:06] LABS: Hematocrit 22.6 % (39.6-49.0)
[2017-11-09 18:26] VITALS: O2SAT 96
[2017-11-09] MEDS ORDERED: NA CHLORIDE 0.9% 250 ML ONE (20:23)
[2017-11-10] MEDS: CARVEDILOL 25 MG TAB PO SCH (05:12)
[2017-11-10 06:21] LABS: Absolute Monocytes 0.7 K/uL (0.1-1.3); Absolute Neutrophil 4.7 K/uL (1.8-8.0); Basophils % 0.4 % (0-1.3); Eosinophils % 2.8 % (0-4.4); Hematocrit 26.1 % (39.6-49.0); Lymphocytes % 14.9 % (15.3-44.8); MCH 28.7 pg (27.0-35.0); MCV 87.9 fL (80-100); MPV 9.7 fL (7.6-11.3); Monocytes % 10.3 % (3.3-12.3); RBC Red Blood Cell Count 2.96 M/uL (4.33-5.43)
[2017-11-10 06:22] LABS: Hematocrit 26.2 % (39.6-49.0)
[2017-11-10 06:29] LABS: Albumin 2.7 g/dL (3.4-5.0); Bilirubin Total 0.4 mg/dL (0.2-1.0); Potassium 5.2 mmol/L (3.5-5.1); Protein, Total 6.3 g/dL (6.4-8.2)
[2017-11-10] MEDS: INSULIN -REGULAR HUMAN 50 UNIT/0.5 ML ML SQ SCH (07:30)
[2017-11-10 09:33] VITALS: BP 169/77; TEMP 97.7
[2017-11-10] MEDS: SPIRONOLACTONE 25 MG TABLET PO SCH (10:19)
[2017-11-10] MEDS: AMLODIPINE 10 MG TAB PO SCH (10:20)
[2017-11-10] MEDS: GABAPENTIN 300 MG CAP PO SCH (10:20)
[2017-11-10] MEDS: FUROSEMIDE 40 MG/4 ML VIAL IV SCH (10:20)
[2017-11-10] MEDS: DOXAZOSIN 2 MG TAB PO SCH (10:21)
[2017-11-10] MEDS: BUMETANIDE 1 MG TABLET PO SCH (10:21)
[2017-11-10] MEDS: PANTOPRAZOLE 40 MG INJ IVP SCH (10:21)
[2017-11-10] MEDS: ISOSORBIDE MONO 10 MG TAB PO SCH (10:21)
[2017-11-10] MEDS: TRAMADOL HCL 50 MG TAB PO PRN (10:22)
--- NOTE | 2017-11-10 11:00 | P.PN ---
Subjective Date of Service: 11/10/17 Primary Care Provider: Jarrett Chief Complaint: Chronic anemia Subjective: New changes (black stools) Review of Systems 10-point ROS is otherwise unremarkable Physical Examination - Vital Signs Temperature: 97.7 F Blood Pressure: 169/77 Pulse: 66 Respirations: 18 Pulse Ox (%): 97 - Physical Exam General: Alert, In no apparent distress HEENT: Atraumatic, PERRLA, EOMI Neck: Supple, JVD not distended Respiratory: Clear to auscultation bilaterally, Normal air movement Cardiovascular: Regular rate/rhythm, Normal S1 S2 Gastrointestinal: Normal bowel sounds, No tenderness Musculoskeletal: No tenderness Integumentary: No rashes Neurological: Normal speech, Normal tone, Normal affect Lymphatics: No axilla or inguinal lymphadenopathy Assessment & Plan - Problems (Diagnosis) (1) Anemia Onset Date: 09/05/15 Current Visit: No Status: Acute Plan: Guiac negative. However black stools. He wishes to go home. I would like to keep him and have Dr. Aiken see him. The patient states he will probably leave. He is within his rights to leave. However will be against medical advise. Qualifiers: Anemia type: due to chronic kidney disease Chronic kidney disease stage: stage 4 (severe) Qualified Code(s): N18.4 - Chronic kidney disease, stage 4 ( severe); D63.1 - Anemia in chronic kidney disease (2) CHF (congestive heart failure) Onset Date: 07/15/17 Current Visit: No Status: Acute Plan: Patient has some pedal edema. Will start him on lasix. Keep him in house for a fluid observation Qualifiers: Heart failure type: diastolic Heart failure chronicity: chronic Qualified Code(s): I50.32 - Chronic diastolic (congestive) heart failure (3) Diabetes Onset Date: 07/15/17 Current Visit: No Status: Acute Plan: continue sliding scale insulin Qualifiers: Diabetes mellitus type: type 2 Diabetes mellitus superintendent marine oil terminal insulin use: with senior care use Diabetes mellitus complication status: without complication Qualified Code(s): E11.9 - Type 2 diabetes mellitus without complications; Z79.4 - terminal worker (current) use of insulin (4) Gastric ulcer Onset Date: 10/09/17 Current Visit: No Status: Acute Plan: negative guiac. will continue to monitor his hb Qualifiers: Gastric ulcer chronicity: chronic Gastric ulcer complication status: without hemorrhage or perforation Qualified Code(s): K25.7 - Chronic gastric ulcer without hemorrhage or perforation (5) Hepatitis C Onset Date: 10/09/17 Current Visit: No Status: Acute Plan: Has to start treatment with Dr. Aiken Qualifiers: Viral hepatitis chronicity: chronic Hepatic coma status: without hepatic coma Qualified Code(s): B18.2 - Chronic viral hepatitis C (6) Cocaine abuse Onset Date: 04/08/17 Current Visit: No Status: Chronic Plan: Will not press the patient on this as he insists he is not using. Discharge Plan: Home Plan to discharge in: 24 Hours - Code Status/Comfort Care Code Status Assessed: No Code Status: Full Code Physician Review: Patient Assessed, Agree with Above Assessment and Plan Critical Care: No Time Spent Managing Pts Care (In Minutes): 30
--- NOTE | 2017-11-10 11:30 | P.DS ---
Admission Date: 11/07/17 Discharge Date: 11/10/17 Primary Care Provider: Jarrett Disposition: AMA-LEFT AGAINST MEDICAL ADVIC Reason for Admission: Chronic anemia - Problems (1) Anemia Onset Date: 09/05/15 Status: Acute Qualifiers: Anemia type: due to chronic kidney disease Chronic kidney disease stage: stage 4 (severe) Qualified Code(s): N18.4 - Chronic kidney disease, stage 4 ( severe); D63.1 - Anemia in chronic kidney disease (2) CHF (congestive heart failure) Onset Date: 07/15/17 Status: Acute Qualifiers: Heart failure type: diastolic Heart failure chronicity: chronic Qualified Code(s): I50.32 - Chronic diastolic (congestive) heart failure (3) Diabetes Onset Date: 07/15/17 Status: Acute Qualifiers: Diabetes mellitus type: type 2 Diabetes mellitus [facility]p insulin use: with [facility]p use Diabetes mellitus complication status: without complication Qualified Code(s): E11.9 - Type 2 diabetes mellitus without complications; Z79.4 - penitentiary (current) use of insulin (4) Gastric ulcer Onset Date: 10/09/17 Status: Acute Qualifiers: Gastric ulcer chronicity: chronic Gastric ulcer complication status: without hemorrhage or perforation Qualified Code(s): K25.7 - Chronic gastric ulcer without hemorrhage or perforation (5) Hepatitis C Onset Date: 10/09/17 Status: Acute Qualifiers: Viral hepatitis chronicity: chronic Hepatic coma status: without hepatic coma Qualified Code(s): B18.2 - Chronic viral hepatitis C (6) Cocaine abuse Onset Date: 04/08/17 Status: Chronic Brief History of Present Illness: Patient was at his oncologist in [facility]. Was found to have a hb 6.9 and my office was called. Sent the patient to ER. He was found to have a hb 6.4. His guiac was negative. He has a history of chf, HTN, chronic renal failure stage 3 -4. He has a had a gastric ulcer. Was at the oncologist for light chain disease. The patient also struggles with cocaine abuse. He denies any use. However his drug screen is positive for cocaine Hospital Course: Patient had black stools this morning. Would like Dr. Aiken to see. Him guidelines for a upper GI bleed is 72 hours. However he insisted on going home. The patient signed ama and left. States he will follow up with me in the office. Vital Signs/Physical Exam: Temp Pulse Resp BP Pulse Ox 97.7 F 66 18 169/77 H 97 11/10/17 11:00 11/10/17 11:00 11/10/17 11:00 11/10/17 11:00 11/10/17 11:00 General: Alert, In no apparent distress HEENT: Atraumatic, PERRLA, EOMI Neck: Supple, JVD not distended Respiratory: Clear to auscultation bilaterally, Normal air movement Cardiovascular: Regular rate/rhythm, Normal S1 S2 Gastrointestinal: Normal bowel sounds, No tenderness Musculoskeletal: No tenderness Integumentary: No rashes Neurological: Normal speech, Normal tone, Normal affect Lymphatics: No axilla or inguinal lymphadenopathy Laboratory Data at Discharge: WBC 6.6 K/uL (4.3-10.9) 11/10/17 05:59 Hgb 8.4 g/dL (13.6-17.9) L 11/10/17 05:59 Hct 26.2 % (39.6-49.0) L 11/10/17 05:59 Plt Count 153 K/uL (152-406) 11/10/17 05:59 PT 14.8 SECONDS (9.5-12.5) H 11/07/17 17:25 INR 1.25 11/07/17 17:25 APTT 37.6 SECONDS (24.3-36.9) H 11/07/17 17:25 Sodium 143 mmol/L (136-145) 11/10/17 05:59 Potassium 5.2 mmol/L (3.5-5.1) H 11/10/17 05:59 BUN 65 mg/dL (7-18) H 11/10/17 05:59 Creatinine 3.00 mg/dL (0.55-1.3) H 11/10/17 05:59 Glucose 98 mg/dL (74-106) 11/10/17 05:59 Magnesium 2.1 mg/dL (1.8-2.4) 11/07/17 17:25 Total Bilirubin 0.4 mg/dL (0.2-1.0) 11/10/17 05:59 AST 51 U/L (15-37) H 07/01/18 05:59 ALT 42 U/L (12-78) 11/10/17 05:59 Alkaline Phosphatase 102 U/L (45-117) 11/10/17 05:59 Home Medications: Amlodipine Besylate 10 mg PO DAILY 06/26/17 Gabapentin [Neurontin*] 300 mg PO TID 06/26/17 Carvedilol [Coreg*] 25 mg PO BID 6AM 6PM #180 tab 08/02/17 Spironolactone 25 mg PO DAILY #90 tablet 08/02/17 Bumetanide [Bumex] 2 mg PO DAILY 10/08/17 Pantoprazole Sodium [Protonix] 40 mg PO DAILY 10/08/17 Isosorbide [place] (Bid) [Ismo 10 mg Tab*] 10 mg PO BID #180 tab 10/15/17 traMADol HCL [Ultram*] 50 mg PO TID PRN #20 tab 10/15/17 Doxazosin Mesylate [Cardura] 2 mg PO SEECOM 11/08/17 Diet: [place] Activity: Ad emilie Time spent managing pt's care (in minutes): 50
--- NOTE | 2017-11-10 14:50 | PN ---
Date of Progress Note: 11/09/2017 Chief Complaint: Tfjbq-[id number]-ymdnvey kidney injury, acute kidney injury, severe nonoliguric, associated with severe prerenal azotemia and nonoliguric ATN. The patient has underlying chronic kidney disease stage 3B, baseline creatinine level is 2.3. On arrival to the hospital, creatinine was 3.16. The patient was complaining of severe shortness of breath, fatigue. He was found to have worsening of the anemia and is receiving blood transfusion. Hemoglobin was 6.9. The patient was complaining of leg edema, generalized weakness, and shortness of breath. The patient has history of congestive heart failure, hypertensive heart disease, history of cocaine abuse. Review of Systems: The patient is feeling better, although has leg edema and some dyspnea on exertion. Denies wheezing, cough, and hemoptysis. Physical Examination: Lungs: Few crackles at bases. Heart: S1, S2. Abdomen: Soft, obese, benign. Extremities: Edema 2+ in both legs. Laboratory Data: Hemoglobin is 7.5, WBC 5.8, platelet count 139,000. Chemistries showed sodium 144, potassium 4.7, chloride 114, CO2 of 23, BUN 62, creatinine 2.8. calcium 7.7, albumin is 2.5. Impression And Plan: 1. Yqpzu-[id number] kidney injury with fluid overload. The patient will continue low-sodium diet and diuretics to control fluid overload. The patient has severe proteinuria and cardiorenal syndrome. Baseline creatinine level previously was ranging from 1.8 to 2.4. The patient may be at this point at new baseline. 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 The patient may benefit from ALEJANDRO inhibitor when he is euvolemic. 2. Congestive heart failure with fluid overload. Continue Lasix, low-sodium diet, and advance blood pressure medication for optimal blood pressure control. 3. Diabetes mellitus. Continue insulin. 4. Hepatitis C. The patient will be seen by bench grinder. I spent total 36 min including 26 min to coordinate care plan. ANSLEY/ZULEIMA Voice ID: [id number] Report ID: [id number] KATIE
== END 2017-11-10 11:21 | disposition left against medical advice (07) ==
LOC: ER 15:31 → ERHOLD 20:01 → 2ND 20:21
PROVIDERS: ADMIT Internal Medicine; ATTEND Internal Medicine
PROC: 02HV33Z Insertion of Infusion Device into Superior Vena Cava, Percutaneous Approach (ICD-10-PCS; principal; 2017-11-07)
PROC: 30243N1 Transfusion of Nonautologous Red Blood Cells into Central Vein, Percutaneous Approach (ICD-10-PCS; 2017-11-07)
DX: I13.0 Hypertensive heart and chronic kidney disease with heart failure and stage 1 through stage 4 chronic kidney disease, or unspecified chronic kidney disease (principal); D63.1 Anemia in chronic kidney disease; B18.2 Chronic viral hepatitis C; K25.7 Chronic gastric ulcer without hemorrhage or perforation; E11.22 Type 2 diabetes mellitus with diabetic chronic kidney disease; E11.21 Type 2 diabetes mellitus with diabetic nephropathy; N18.4 Chronic kidney disease, stage 4 (severe); I50.32 Chronic diastolic (congestive) heart failure; Z79.4 Long term (current) use of insulin; F14.10 Cocaine abuse, uncomplicated; E78.00 Pure hypercholesterolemia, unspecified; Z86.73 Personal history of transient ischemic attack (TIA), and cerebral infarction without residual deficits; M19.90 Unspecified osteoarthritis, unspecified site; Z87.891 Personal history of nicotine dependence; N17.9 Acute kidney failure, unspecified; E87.70 Fluid overload, unspecified
CPT/HCPCS: 36415; 71045; 80048; 80053; 80076; 80307; 81003; 82274; 82962; 83735; 83880; 84439; 84443; 85014; 85018; 85025; 85610; 85730; 86850; 86900; 86901; 93005; 97163; 99284; C9113; P9016

== ENCOUNTER 2018-02-11 14:51 | Inpatient (IN) | payer OTHER ==
--- NOTE | 2018-02-11 16:08 | RAD REPORT ---
EXAM DESCRIPTION: [place] Single View02/11/2018 4:00 pm CLINICAL HISTORY: Shortness of breath COMPARISON: October 2017 FINDINGS: The right basilar opacity seen. Mild bilateral interstitial lung opacities are suspected. The heart is moderately enlarged IMPRESSION: Mild pulmonary edema Right basilar opacity probably representing a combination of pleural effusion and atelectasis
[2018-02-11 17:22] LABS: Protime INR 2.15
[2018-02-11 17:23] LABS: Absolute Lymphocytes (CBC) 2.1 K/uL (0.7-4.9); Absolute Monocytes 0.5 K/uL (0.1-1.3); Absolute Neutrophil 3.3 K/uL (1.8-8.0); Basophils % 0.8 % (0-1.3); Eosinophils % 0.9 % (0-4.4); Lymphocytes % 35.4 % (15.3-44.8); MCH 21.3 pg (27.0-35.0); MCV 71.8 fL (80-100); MPV 9.6 fL (7.6-11.3)
[2018-02-11] MEDS ORDERED: FUROSEMIDE 40 MG/4 ML VIAL ONE (17:34)
[2018-02-11 17:59] LABS: Anisocytosis 1+; Blood Morphology Comment NOTED (NOT SEEN); Hypochromasia 1+; Platelet Estimate DECR; Platelets, Giant PRESENT
[2018-02-11 18:15] LABS: Albumin 2.6 g/dL (3.4-5.0); Bilirubin Direct 0.3 mg/dL (0-0.2); Bilirubin Total 0.4 mg/dL (0.2-1.0); Magnesium 1.9 mg/dL (1.8-2.4); Protein, Total 6.4 g/dL (6.4-8.2); Troponin (Emerg Dept Use Only) 0.26 ng/mL (0.0-0.045)
[2018-02-11 18:20] LABS: Potassium 5.7 mmol/L (3.5-5.1)
[2018-02-11 19:12] LABS: Barbiturates NEGATIVE (NEGATIVE); Benzodiazepines NEGATIVE (NEGATIVE); Cocaine POSITIVE (NEGATIVE); METHAMPHETAM NEGATIVE (NEGATIVE); Methadone NEGATIVE (NEGATIVE); Opiates NEGATIVE (NEGATIVE); Phencyclidine NEGATIVE (NEGATIVE); THC Cannibis NEGATIVE (NEGATIVE)
[2018-02-11 19:27] LABS: Urine Blood 2+ (NEG); Urine Glucose NEGATIVE (NEG); Urine Protein 3+ (NEG); Urine Specific Gravity 1.025 (1.005-1.030)
--- NOTE | 2018-02-11 19:32 | EDPHYS ---
Physician Documentation [facility] Name: Billy Trejo Age: 62 yrs Sex: Male : 1955 Arrival Date: 02/11/2018 Time: 14:53 Bed 13 Private MD: Gerardo Farias ED Physician Obdulia Smith HPI: 02/11 16:00 This 62 yrs old Black Male presents to ER via Wheelchair with complaints of Shortness pm1 Of Breath. 16:00 The patient has shortness of breath at rest. pm1 16:00 Onset: The symptoms/episode began/occurred 1 month(s) ago, and became worse today. pm1 Duration: The symptoms are continuous, and are steadily getting worse. The patient's shortness of breath is aggravated by nothing, not taking his Lasix, , is alleviated by nothing. Associated signs and symptoms: Pertinent positives: non-productive cough, Pertinent negatives: chest pain, dizziness, fever, nausea, vomiting. Severity of symptoms: in the emergency department the symptoms are worse. The patient has experienced similar episodes in the past, multiple times. Historical: - Allergies: 15:00 Corticosteroids (Glucocorticoids); aj1 - Home Meds: 15:00 amlodipine 10 mg tab 1 tab once daily [Active]; furosemide 40 mg Oral tab 1 tab once aj1 daily [Active]; gabapentin 300 mg Oral cap 3 times per day [Active]; levemir 40 unit twice a day for Diabetes [Active]; spironolactone 25 mg Oral tab 1 tab once daily [Active]; - PMHx: 15:00 "spot on lung"; Anemia; Arthritis; CHF; CVA; Diabetes - IDDM; GERD; GI Bleed; High aj1 Cholesterol; Hypertension; Pneumonia; - Immunization history:: Flu vaccine is not up to date. - Social history:: Smoking status: Patient/guardian denies using tobacco. - Ebola Screening: : Patient denies travel to an Ebola-affected area in the 21 days before illness onset. ROS: 16:00 Constitutional: Negative for fever, chills, and weight loss, Eyes: Negative for injury, pm1 pain, redness, and discharge, ENT: Negative for injury, pain, and discharge, Neck: Negative for injury, pain, and swelling, Cardiovascular: Negative for chest pain, palpitations, and edema, Abdomen/GI: Negative for abdominal pain, nausea, vomiting, diarrhea, and constipation, Back: Negative for injury and pain, MS/Extremity: Negative for injury and deformity, Skin: Negative for injury, rash, and discoloration. 16:00 Neuro: Negative for headache, weakness, numbness, tingling, and seizure. 16:00 Respiratory: Positive for cough, shortness of breath, Negative for sputum production. Exam: 16:00 Constitutional: This is a well developed, well nourished patient who is awake, alert, pm1 and in no acute distress. Head/Face: Normocephalic, atraumatic. Eyes: Pupils equal round and reactive to light, extra-ocular motions intact. Lids and lashes normal. Conjunctiva and sclera are non-icteric and not injected. Cornea within normal limits. Periorbital areas with no swelling, redness, or edema. ENT: Nares patent. No nasal discharge, no septal abnormalities noted. Tympanic membranes are normal and external auditory canals are clear. Oropharynx with no redness, swelling, or masses, exudates, or evidence of obstruction, uvula midline. Mucous membranes moist. Neck: Trachea midline, no thyromegaly or masses palpated, and no cervical lymphadenopathy. Supple, full range of motion without nuchal rigidity, or vertebral point tenderness. No Meningismus. Chest/axilla: Normal chest wall appearance and motion. Nontender with no deformity. No lesions are appreciated. Cardiovascular: Regular rate and rhythm with a normal S1 and S2. No gallops, murmurs, or rubs. No pulse deficits. Anasarca present from hips to lower extermities bilaterally Abdomen/GI: Soft, non-tender, with normal bowel sounds. No distension or tympany. No guarding or rebound. No evidence of tenderness throughout. Back: No spinal tenderness. No costovertebral tenderness. Full range of motion. Skin: Warm, dry with normal turgor. Normal color with no rashes, no lesions, and no evidence of cellulitis. MS/ Extremity: Pulses equal, no cyanosis. Neurovascular intact. Full, normal range of motion. 16:00 Respiratory: the patient does not display signs of respiratory distress, Respirations: normal, Breath sounds: rales, are located in both bases. 16:00 Neuro: Orientation: is normal, Motor: moves all fours. Vital Signs: 15:00 BP 183 / 107; Pulse 99; Resp 20; Temp 97.4; Pulse Ox 100% on R/A; Weight 92.08 kg (R); aj1 Height 5 ft. 11 in. (180.34 cm) (R); 15:55 BP 175 / 99; Pulse 106; Resp 22; Temp 98.9; Pulse Ox 100% on R/A; Pain 9/10; ch 17:04 BP 165 / 94; Pulse 97; Resp 29; Pulse Ox 97% on R/A; ch 17:37 BP 170 / 106; Pulse 94; Resp 36; Pulse Ox 97% on R/A; Pain 8/10; ch 18:29 BP 180 / 96; Pulse 96; Resp 24; Pulse Ox 97% on R/A; Pain 8/10; ch 19:00 BP 190 / 90; Pulse 92; Resp 18; Pulse Ox 100% on R/A; Pain 0/10; ea 20:55 BP 190 / 101; Pulse 98; Resp 18; Pulse Ox 99% ; Pain 0/10; ea 21:15 BP 193 / 80; Pulse 90; Resp 20; Temp 98.5; Pulse Ox 99% ; Pain 3/10; ea 15:00 Body Mass Index 28.31 (92.08 kg, 180.34 cm) aj1 17:37 pt states his chronic neuropathy hurts. ch 20:55 provider notified, medication order obtained. ea MDM: 15:48 Patient medically screened. [facility] 16:00 Data reviewed: vital signs. Data interpreted: Pulse oximetry: on room air is 100 %. pm1 Interpretation: normal. 19:43 Physician consultation: Irvin Cruz MD was called at 19:05, was contacted at 19:36, pm1 regarding admission, patient's condition, and will see patient Wants Lasix 80 mg BID and agrees with Lasix 40 mg after each units of PRBC. Give the patient albuterol 10 mg, regular insulin 5 mg, and 25 mg albumin. Add CPK lab. Agrees with 40 mg Lasix after each unit of PRBC. 21:24 Physician consultation: Gerardo Farias MD was contacted at 21:25, regarding patient's pm1 condition, positive stool guaiac , requests consult with Dr Tan. Dr. Tan contacted and will see him tomorrow afternoon. 02/11 15:49 Order name: Basic Metabolic Panel; Complete Time: 18:34 pm1 02/11 15:49 Order name: CBC with Diff; Complete Time: 18:01 pm1 02/11 15:49 Order name: LFT's; Complete Time: 18:34 pm1 02/11 15:49 Order name: Magnesium; Complete Time: 18:34 pm1 02/11 15:49 Order name: NT PRO-BNP; Complete Time: 18:34 pm1 02/11 15:49 Order name: PT-INR; Complete Time: 17:30 pm1 02/11 15:49 Order name: Troponin (emerg Dept Use Only); Complete Time: 18:34 pm1 02/11 15:55 Order name: UDS; Complete Time: 19:27 pm1 02/11 15:55 Order name: Type And Screen pm1 02/11 17:29 Order name: Manual Differential; Complete Time: 18:01 EDMS 02/11 18:37 Order name: Urine Dipstick--Ancillary (enter results); Complete Time: 01:13 bd 02/11 18:58 Order name: Bb Add On bd 02/11 19:18 Order name: Packed RBC Leukored -1 EDMS 02/11 19:49 Order name: CPK; Complete Time: 01:13 pm1 02/11 15:49 Order name: XRAY Chest (1 view); Complete Time: 16:16 pm1 02/11 20:06 Order name: Retic Count; Complete Time: 01:13 pm1 02/11 20:07 Order name: TIBC; Complete Time: 01:13 pm1 02/11 20:07 Order name: Iron Level; Complete Time: 01:13 pm1 02/11 20:08 Order name: Ferritin pm1 02/11 20:17 Order name: CBC with Automated Diff EDMS 02/11 20:17 Order name: CBC with Automated Diff EDMS 02/11 20:17 Order name: CBC with Automated Diff EDMS 02/11 20:17 Order name: CBC with Automated Diff EDMS 02/11 20:17 Order name: Comprehensive Metabolic Panel EDMS 02/11 20:17 Order name: Comprehensive Metabolic Panel EDMS 02/11 20:17 Order name: Comprehensive Metabolic Panel EDMS 02/11 20:17 Order name: Comprehensive Metabolic Panel EDMS 02/11 15:49 Order name: EKG; Complete Time: 15:50 pm1 02/11 15:49 Order name: Cardiac monitoring; Complete Time: 17:10 pm1 02/11 15:49 Order name: EKG - Nurse/Tech; Complete Time: 17:10 pm1 02/11 15:49 Order name: IV Saline Lock; Complete Time: 17:10 pm1 02/11 15:49 Order name: Labs collected and sent; Complete Time: 17:10 pm1 02/11 15:49 Order name: O2 Per Protocol; Complete Time: 17:10 pm1 02/11 15:49 Order name: O2 Sat Monitoring; Complete Time: 17:11 pm1 02/11 18:05 Order name: Diet Renal; Complete Time: 18:05 bd 02/11 20:17 Order name: CONS Physician Consult EDMS Administered Medications: 17:36 Drug: Lasix 40 mg Route: IVP; Site: left jugular; ch 18:30 Follow up: Urine output 450 ml; Response: No adverse reaction ch 20:10 Drug: Albuterol 10 mg Route: Inhalation; ea 20:10 Drug: D50W 50 ml {Note: left EJ.} Route: IVP; Site: Other; ea 20:41 Drug: Insulin Regular Human 5 units {Co-Signature: jd3 (Ramon Maier RN).} {Note: ea left EJ.} Route: IVP; Site: Other; 20:50 Drug: Lasix 40 mg {Note: left EJ.} Route: IVP; Site: Other; ea 21:39 Follow up: Response: No adverse reaction ea Point of Care Testing: Blood Glucose: 18:10 Blood Glucose: 92 mg/dL; ch Ranges: Critical Glucose Levels:Adult <50 mg/dl or >400 mg/dl <40 mg/dl or >180 mg/dl Disposition: 02/11/18 19:31 Hospitalization ordered by Gerardo Farias for Inpatient Admission. Preliminary diagnosis are Anemia, unspecified, Hyperkalemia. - Bed requested for Telemetry/MedSurg (Inpatient). - Status is Inpatient Admission. ea - Condition is Stable. - Problem is new. - Symptoms have improved. UTI on Admission? No Addendum: 02/24/2018 11:17 Co-signature as Attending Physician, Mohammad Alzahri MD. m a2 Signatures: Dispatcher [employer] EDRenee Wallace, RN RN Brooke Real RN RN aj1 Cassie Ortiz RN Emerson Hathaway MD MD cha Marinas, Patrick, SKEIN STRAIGHTENER SKEIN STRAIGHTENER pm1 Emily Finnegan RN RN ea Alzahri, Mohammad, MD MD ma2 Ramon Maier RN jd3 Corrections: (The following items were deleted from the chart) 02/11 20:01 19:31 Hospitalization Ordered by Gerardo Farias MD for Inpatient Admission. Preliminary diagnosis is Anemia, unspecified; Hyperkalemia. Bed requested for Telemetry/MedSurg (Inpatient). Status is Inpatient Admission. Condition is Stable. Problem is new. Symptoms have improved. UTI on Admission? No. pm1 21:39 20:01 02/11/2018 19:31 Hospitalization Ordered by Gerardo Farias MD for Inpatient ea Admission. Preliminary diagnosis is Anemia, unspecified; Hyperkalemia. Bed requested for Telemetry/MedSurg (Inpatient). Status is Inpatient Admission. Condition is Stable. Problem is new. Symptoms have improved. UTI on Admission? No. mw
--- NOTE | 2018-02-11 19:32 | ER ---
Nurse's Notes [facility] Name: Billy Trejo Age: 62 yrs Sex: Male : 1955 Arrival Date: 02/11/2018 Time: 14:53 Bed 13 Private MD: Gerardo Farias Diagnosis: Anemia, unspecified;Hyperkalemia Presentation: 02/11 14:55 Presenting complaint: Patient states: He's been feeling short of breath for the past aj1 month. He was told that he needed dialysis 3 months ago and he decided not to go. He says that he was told that he had problems with his kidneys, liver, and heart last time he was in the hospital, and has not followed up afterwards. He is unsure what the diagnoses were. Reports productive cough for the past couple of months. Denies fever. Transition of care: patient was not received from another setting of care. Onset of symptoms was January 2018. Risk Assessment: Do you want to hurt yourself or someone else? Patient reports no desire to harm self or others. Initial Sepsis Screen: Does the patient meet any 2 criteria? HR > 90 bpm. No. Patient's initial sepsis screen is negative. Does the patient have a suspected source of infection? No. Patient's initial sepsis screen is negative. Care prior to arrival: None. 14:55 Method Of Arrival: Wheelchair aj1 14:55 Acuity: BRAD 3 aj1 Triage Assessment: 15:00 General: Appears in no apparent distress. uncomfortable, Behavior is cooperative, aj1 agitated. Pain: Complains of pain in right leg and left leg Pain currently is 9 out of 10 on a pain scale. Neuro: Level of Consciousness is awake, alert, obeys commands. Cardiovascular: Patient's skin is warm and dry. Respiratory: Reports shortness of breath Airway is patent Respiratory effort is even, unlabored, Respiratory pattern is regular, symmetrical, Onset: The symptoms/episode began/occurred for the past month, the patient has mild shortness of breath. Historical: - Allergies: 15:00 Corticosteroids (Glucocorticoids); aj1 - Home Meds: 15:00 amlodipine 10 mg tab 1 tab once daily [Active]; furosemide 40 mg Oral tab 1 tab once aj1 daily [Active]; gabapentin 300 mg Oral cap 3 times per day [Active]; levemir 40 unit twice a day for Diabetes [Active]; spironolactone 25 mg Oral tab 1 tab once daily [Active]; - PMHx: 15:00 "spot on lung"; Anemia; Arthritis; CHF; CVA; Diabetes - IDDM; GERD; GI Bleed; High aj1 Cholesterol; Hypertension; Pneumonia; - Immunization history:: Flu vaccine is not up to date. - Social history:: Smoking status: Patient/guardian denies using tobacco. - Ebola Screening: : Patient denies travel to an Ebola-affected area in the 21 days before illness onset. Screenin:04 Abuse screen: Denies threats or abuse. Denies injuries from another. Nutritional ch screening: No deficits noted. Tuberculosis screening: No symptoms or risk factors identified. Fall Risk None identified. Assessment: 15:55 Cardiovascular: Rhythm is regular. Cardiovascular: Heart tones S1 S2 present Pulses are ch all present. Edema is 3+ to left midcalf, left ankle, left foot, right midcalf, right ankle and right foot pitting to left midcalf, left ankle, left foot, right midcalf, right ankle and right foot. Respiratory: Airway is patent Trachea midline Respiratory effort is even, labored, Breath sounds are diminished bilaterally. GI: Abdomen is round non-distended, Bowel sounds present X 4 quads. Abd is soft and non tender X 4 quads. : No signs and/or symptoms were reported regarding the genitourinary system. Derm: Skin is intact, Skin is dry, Skin is black. Musculoskeletal: Capillary refill is > 3 seconds, in bilateral toes. pt states he feels very weak all over. 17:04 Reassessment: Patient appears in no apparent distress at this time. Patient and/or ch family updated on plan of care and expected duration. Pain level reassessed. 17:37 Reassessment: Patient appears in no apparent distress at this time. Patient and/or ch family updated on plan of care and expected duration. Pain level reassessed. 18:29 Reassessment: Patient appears in no apparent distress at this time. Patient and/or ch family updated on plan of care and expected duration. Pain level reassessed. pt states he feels better. pt given sandwitch and chips. no s/s of distress. pt rr decreased. 18:40 Reassessment: Patient appears in no apparent distress at this time. No changes from ch previously documented assessment. Patient and/or family updated on plan of care and expected duration. Pain level reassessed. 19:15 General: Appears in no apparent distress. Behavior is calm, cooperative, appropriate ea for age. Pain: Complains of pain in right leg and left leg. Neuro: Level of Consciousness is awake, alert, obeys commands, Oriented to person, place, time. Cardiovascular: Heart tones S1 S2 present Patient's skin is warm and dry. Respiratory: Airway is patent Respiratory effort is even, unlabored, Respiratory pattern is regular, symmetrical, Breath sounds are diminished bilaterally. GI: Abdomen is non-distended, Bowel sounds present X 4 quads. Abd is soft and non tender. Derm: Skin is intact, Skin is dry, Skin is normal, Skin temperature is warm. Musculoskeletal: Capillary refill is > 3 seconds, in bilateral Swelling present in right leg and left leg. 20:30 Reassessment: Patient and/or family updated on plan of care and expected duration. Pain ea level reassessed. Patient is alert, oriented x 3, equal unlabored respirations, skin warm/dry/pink. 21:15 Reassessment: Patient and/or family updated on plan of care and expected duration. Pain ea level reassessed. Patient is alert, oriented x 3, equal unlabored respirations, skin warm/dry/pink. Report called to receiving nurse on second floor. Vital Signs: 15:00 BP 183 / 107; Pulse 99; Resp 20; Temp 97.4; Pulse Ox 100% on R/A; Weight 92.08 kg (R); aj1 Height 5 ft. 11 in. (180.34 cm) (R); 15:55 BP 175 / 99; Pulse 106; Resp 22; Temp 98.9; Pulse Ox 100% on R/A; Pain 9/10; ch 17:04 BP 165 / 94; Pulse 97; Resp 29; Pulse Ox 97% on R/A; ch 17:37 BP 170 / 106; Pulse 94; Resp 36; Pulse Ox 97% on R/A; Pain 8/10; ch 18:29 BP 180 / 96; Pulse 96; Resp 24; Pulse Ox 97% on R/A; Pain 8/10; ch 19:00 BP 190 / 90; Pulse 92; Resp 18; Pulse Ox 100% on R/A; Pain 0/10; ea 20:55 BP 190 / 101; Pulse 98; Resp 18; Pulse Ox 99% ; Pain 0/10; ea 21:15 BP 193 / 80; Pulse 90; Resp 20; Temp 98.5; Pulse Ox 99% ; Pain 3/10; ea 15:00 Body Mass Index 28.31 (92.08 kg, 180.34 cm) aj1 17:37 pt states his chronic neuropathy hurts. ch 20:55 provider notified, medication order obtained. ea ED Course: 14:53 Patient arrived in ED. rg4 14:54 Gerardo Farias MD is Private Physician. rg4 14:59 Triage completed. aj1 15:00 Arm band placed on Patient placed in waiting room, Patient notified of wait time. aj1 15:47 Chadwick Boss NP is PHCP. pm1 15:47 Obdulia Smith MD is Attending Physician. pm1 15:55 Renee Guardado, MARY is Primary Nurse. ch 16:01 XRAY Chest (1 view) In Process Unspecified. EDMS 16:07 EKG done, by assistive technology trainer. reviewed by Chadwick Boss NP. sm3 16:40 Missed attempt(s): 22 gauge in left in right antecubital area. and 18 G to R EJ by [email or web address] 17:04 Patient has correct armband on for positive identification. Placed in gown. Bed in low ch position. Call light in reach. Side rails up X2. director translation on. Pulse ox on. NIBP on. Warm blanket given. 17:04 EJ placement. Inserted saline lock: 20 gauge in left EJ, using aseptic technique. ch ,using aseptic technique. started by jK Dan 19:10 Report given to Emily. ch 19:13 Emily Finnegan, RN is Primary Nurse. ea 19:30 Gerardo Farias MD is Hospitalizing Provider. pm1 21:25 Notified Nurse Practitioner and/or Physician Senior Javascript Engineer of a critical lab result(s), cpk fc of [id number]. 21:29 Patient admitted, IV remains in place. ea Administered Medications: 17:36 Drug: Lasix 40 mg Route: IVP; Site: left jugular; ch 18:30 Follow up: Urine output 450 ml; Response: No adverse reaction ch 20:10 Drug: Albuterol 10 mg Route: Inhalation; 20:10 Drug: D50W 50 ml {Note: left EJ.} Route: IVP; Site: Other; 20:41 Drug: Insulin Regular Human 5 units {Co-Signature: guicho (Ramon Maier RN).} {Note: ea left EJ.} Route: IVP; Site: Other; 20:50 Drug: Lasix 40 mg {Note: left EJ.} Route: IVP; Site: Other; 21:39 Follow up: Response: No adverse reaction irving Point of Care Testing: Blood Glucose: 18:10 Blood Glucose: 92 mg/dL; Ranges: Output: 18:30 Urine: 450ml; Total: 450ml. Outcome: 19:31 Decision to Hospitalize by Provider. pm1 21:25 Admitted to Med/surg accompanied by tech, room 410, with chart, Report called to irving Troy RN 21:25 Condition: stable 21:25 Instructed on the need for admit. 21:39 Patient left the ED. ea Signatures: Dispatcher [employer] EDMS Renee Guardado, RN RN Brooke Real, RN RN aj1 Afsaneh Lagos, RN RN Chadwick Duncan, FIELD INSURANCE SALES MANAGER FIELD INSURANCE SALES MANAGER pm1 Ana Lyn4 Emily Finnegan RN RN Mara Sandoval [facility] Ramon Maier RN jd3
[2018-02-11] MEDS ORDERED: INSULIN -REGULAR HUMAN 50 UNIT/0.5 ML ML ONE (19:57)
[2018-02-11] MEDS ORDERED: ALBUTEROL 2.5 MG/3 ML NEB SOL ONE (19:57)
[2018-02-11] MEDS ORDERED: D50W 25 GM/50 ML SYRINGE IV ONE (20:07)
[2018-02-11] MEDS ORDERED: NA CHLORIDE 0.9% 0 ML ONE (20:08)
--- NOTE | 2018-02-11 20:27 | P.HP ---
Certification for Inpatient Patient admitted to: Inpatient With expected LOS: >2 Midnights Patient will require the following post-hospital care: Home Health Services Practitioner: I am a practitioner with admitting privileges, knowledge of patient current condition, hospital course, and medical plan of care. Services: Services provided to patient in accordance with Admission requirements found in Title 42 Section 412.3 of the Code of Federal Regulations Patient History Date of Service: 02/11/18 Primary Care Provider: Jarrett Reason for admission: Chf exacerbation History of Present Illness: Patient called my office today. Stating he was going to the ER as he felt hopeless. I have had the discussion in the past with him that he has a lot of medical problems and would need a lot of work to get health. He states he has stopped taking his lasix for the past few months. He has had it. He just stopped taking it. Admits to using cocaine a few days ago. He has missed his last few appointments. He has been only eating soup(lots of sodium). He has been getting more and more swollen and final came to the ER. He is has presented in a similar manner in the past. He has a pmh of cocaine abuse, chf, stage 4 ckd, large gastric ulcer and Hep C. He has not followed up with Dr. Aiken for treatment. Denies any blood in his stool. He has been vomiting. However denies any blood or coffee grounds in his vomit. Allergies Corticosteroids (Glucocorticoids) Allergy (Verified 10/08/17 15:06) Anaphylaxis Home Medications: Amlodipine Besylate 10 mg PO DAILY 06/26/17 Gabapentin [Neurontin*] 300 mg PO TID 06/26/17 Carvedilol [Coreg*] 25 mg PO BID 6AM 6PM #180 tab 08/02/17 Spironolactone 25 mg PO DAILY #90 tablet 08/02/17 Bumetanide [Bumex] 2 mg PO DAILY 10/08/17 Pantoprazole Sodium [Protonix] 40 mg PO DAILY 10/08/17 Isosorbide [place] (Bid) [Ismo 10 mg Tab*] 10 mg PO BID #180 tab 10/15/17 traMADol HCL [Ultram*] 50 mg PO TID PRN #20 tab 10/15/17 Doxazosin Mesylate [Cardura] 2 mg PO SEECOM 11/08/17 - Past Medical/Surgical History Diabetic: Yes -: HTN -: IDDM -: Arthritis -: high cholesterol -: cva- 2014 -: anemia -: drug abuse -: colonoscopy -: EGD - Family History Father -: Heart disease Notes: NO REAL HISTORY IS KNOWN OTHER THAN WHAT WAS TOLD TO HIM Mother -: Cancer Notes: NO REAL HISTORY KNOWN OTHER THAN WHAT WAS TOLD TO HIM - Social History Alcohol use: Yes CD- Drugs: Yes Caffeine use: Yes Review of Systems 10-point ROS is otherwise unremarkable General: Weakness Respiratory: Cough, Shortness of Breath Cardiovascular: Edema Gastrointestinal: Nausea, Vomiting Physical Examination - Physical Exam General: Alert, In no apparent distress HEENT: Atraumatic, PERRLA, Mucous membr. moist/pink, EOMI, Sclerae nonicteric Neck: Supple, 2+ carotid pulse no bruit, No LAD, Without JVD or thyroid abnormality Respiratory: Diminished, Crackles/rales Cardiovascular: Regular rate/rhythm, Normal S1 S2, Edema (3+) Gastrointestinal: Normal bowel sounds, No tenderness Musculoskeletal: No tenderness Integumentary: No rashes Neurological: Normal gait, Normal speech, Normal strength at 5/5 x4 extr, Normal tone, Normal affect Lymphatics: No axilla or inguinal lymphadenopathy - Studies Laboratory Data (last 24 hrs) 02/11/18 17:00: Sodium 142, Potassium 5.7 H*, BUN 37 H, Creatinine 4.40 H, Glucose 91, Magnesium 1.9, Total Bilirubin 0.4, AST 100 H, ALT 46, Alkaline Phosphatase 59 02/11/18 16:40: PT 25.6 H, INR 2.15 02/11/18 16:40: WBC 6.0, Hgb 5.3 L*, Hct 18.0 L*, Plt Count 148 L Assessment and Plan - Problems (Diagnosis) (1) CHF (congestive heart failure) Onset Date: 07/15/17 Current Visit: No Status: Acute Plan: Will admit him. Start diuresis. Blood will help reduce third spacing. He had a recent echo cardiogram in September. Will have keep him on a night monitor. Qualifiers: Heart failure type: diastolic Heart failure chronicity: acute on chronic Qualified Code(s): I50.33 - Acute on chronic diastolic (congestive) heart failure (2) Anemia Onset Date: 04/25/16 Current Visit: No Status: Acute Plan: He did have a large gastric ulcer. He denies any signs of bleeding. This may be anemia due to kidney disease. Will check a stool guiac, reticulocyte count and serum iron studies to differentiate. Will transfuse him with 40 units of lasix. Give him 2 units of blood this evening Will check H/H [id number]. Qualifiers: Anemia type: iron deficiency Iron deficiency anemia type: chronic blood loss Qualified Code(s): D50.0 - Iron deficiency anemia secondary to blood loss (chronic) (3) Stage 4 chronic kidney disease Current Visit: Yes Status: Acute Plan: Have consult Dr. Rose for the creatine and gfr. Will need to be careful as he needs diuresis as well. kidney preservation. (4) Cocaine abuse Onset Date: 04/08/17 Current Visit: No Status: Chronic Plan: Will discuss again with the patient. Will need to give him the outpatient resources. (5) Hyperkalemia Current Visit: No Status: Resolved Plan: Treatment as per Dr. Rose. Will continue to monitor. Discharge Plan: Home Plan to discharge in: Greater than 2 days - Advance Directives Does patient have a Living Will: No Does patient have a Durable POA for Healthcare: No - Code Status/Comfort Care Code Status Assessed: Yes Code Status: Full Code Physician Review: Patient Assessed, Agree with Above Assessment and Plan Critical Care: No Time Spent Managing Pts Care (In Minutes): 70
[2018-02-11 20:43] LABS: RBC Red Blood Cell Count 2.45 M/uL (4.33-5.43)
[2018-02-11 21:08] LABS: Ferritin 32.7 ng/mL (26-388)
[2018-02-11] MEDS ORDERED: NA CHLORIDE 0.9% 50 ML ONE (22:52)
[2018-02-11 23:16] LABS: Urine Appearance CLEAR; Urine Bilirubin NEGATIVE (NEG); Urine Blood 2+ (NEG); Urine Color YELLOW; Urine Glucose NEGATIVE (NEG); Urine Protein 2+ (NEG); Urine Urobilinogen 0.2 mg/dL (0.2-1.0); Urine pH 6.5 (5.0-7.0)
[2018-02-11 23:21] LABS: Urine Microscopic Reflex ORDER UMIC
[2018-02-12 00:59] LABS: Urine Bacteria <20 /HPF (NONE SEEN); Urine RBC <5 /HPF (NONE SEEN)
[2018-02-12 01:00] LABS: Urine Culture Reflex Order NOT NEEDED
[2018-02-12] MEDS ORDERED: FUROSEMIDE 40 MG/4 ML VIAL IV ONE (03:03)
[2018-02-12] MEDS ORDERED: NA CHLORIDE 0.9% 50 ML ONE (04:20)
[2018-02-12] MEDS: PANTOPRAZOLE 40MG TABLET PO SCH (05:37)
--- NOTE | 2018-02-12 06:52 | EKG ---
Test Date: 2018-02-11 Test Time: 15:59:14 Wage Adjuster: MER MEASUREMENT RESULTS: Intervals: Rate: 102 ID: [id number] QRSD: 82 QT: 362 QTc: 471 [place]: P: 46 ID: [id number] QRS: -30 T: 67 INTERPRETIVE STATEMENTS: Sinus tachycardia Left axis deviation Abnormal ECG Compared to ECG 11/07/2017 16:44:38 Left-axis deviation now present Sinus bradycardia no longer present Electronically Signed On 02-12-18 06:50:38 CDT by Ruperto Alvarado
[2018-02-12] MEDS ORDERED: FUROSEMIDE 40 MG/4 ML VIAL IV SCH (09:00)
[2018-02-12] MEDS ORDERED: ALBUMIN HUMAN 25% 100 ML IV SCH (09:00)
[2018-02-12] MEDS ORDERED: INFLUENZA VACCINE (for 3y+) 0.5 ML DOSE IMVAC ONE (09:00)
--- NOTE | 2018-02-12 09:22 | P.PN ---
Subjective Date of Service: 02/12/18 Primary Care Provider: Jarrett Chief Complaint: Chf exacerbation Subjective: Improving Review of Systems 10-point ROS is otherwise unremarkable Respiratory: Cough Cardiovascular: Edema Musculoskeletal: Leg Pain Physical Examination - Vital Signs Temperature: 98.5 F Blood Pressure: 194/103 Pulse: 98 Respirations: 18 Pulse Ox (%): 97 - Physical Exam General: Alert, In no apparent distress HEENT: Atraumatic, PERRLA, EOMI Neck: Supple, JVD not distended Respiratory: Clear to auscultation bilaterally, Normal air movement Cardiovascular: Regular rate/rhythm, Normal S1 S2, Edema (2+) Gastrointestinal: Normal bowel sounds, No tenderness Musculoskeletal: No tenderness Integumentary: No rashes Neurological: Normal speech, Normal tone, Normal affect Lymphatics: No axilla or inguinal lymphadenopathy - Studies Laboratory Data (last 24 hrs) 02/11/18 17:00: Sodium 142, Potassium 5.7 H*, BUN 37 H, Creatinine 4.40 H, Glucose 91, Magnesium 1.9, Total Bilirubin 0.4, AST 100 H, ALT 46, Alkaline Phosphatase 59 02/11/18 16:40: PT 25.6 H, INR 2.15 02/11/18 16:40: WBC 6.0, Hgb 5.3 L*, Hct 18.0 L*, Plt Count 148 L Assessment & Plan - Problems (Diagnosis) (1) CHF (congestive heart failure) Onset Date: 07/15/17 Current Visit: No Status: Acute Plan: Improving. Will continue diuresis per Dr. Rose. Qualifiers: Heart failure type: diastolic Heart failure chronicity: acute on chronic Qualified Code(s): I50.33 - Acute on chronic diastolic (congestive) heart failure (2) Anemia Onset Date: 09/05/15 Current Visit: No Status: Acute Plan: He did have a large gastric ulcer. He denies any signs of bleeding. This may be anemia due to kidney disease. Will check a stool guiac, reticulocyte count and serum iron studies to differentiate. Will transfuse him with 40 units of lasix. Give him 2 units of blood this evening Will check H/H [id number]. Qualifiers: Anemia type: iron deficiency Iron deficiency anemia type: chronic blood loss Qualified Code(s): D50.0 - Iron deficiency anemia secondary to blood loss (chronic) (3) Stage 4 chronic kidney disease Current Visit: Yes Status: Acute Plan: Have consult Dr. Rose for the creatine and gfr. Will need to be careful as he needs diuresis as well. kidney preservation. (4) Cocaine abuse Onset Date: 04/08/17 Current Visit: No Status: Chronic Plan: Will discuss again with the patient. Will need to give him the outpatient resources. (5) Hyperkalemia Current Visit: No Status: Resolved Plan: Treatment as per Dr. Rose. Will continue to monitor. Discharge Plan: Home Plan to discharge in: Greater than 2 days - Code Status/Comfort Care Code Status Assessed: No Code Status: Full Code Physician Review: Patient Assessed, Agree with Above Assessment and Plan Critical Care: No Time Spent Managing Pts Care (In Minutes): 25
[2018-02-12] MEDS: HYDRALAZINE HCL 20 MG/ML VIAL IV PRN (09:31)
[2018-02-12] MEDS ORDERED: MORPHINE 4 MG/ML SYR IV ONE (10:44)
[2018-02-12] MEDS ORDERED: ASPIRIN 325 MG TAB PO ONE (10:45)
[2018-02-12] MEDS ORDERED: FENTANYL CITR 100 MCG/2 ML IV ONE (10:56)
[2018-02-12 11:25] LABS: Absolute Lymphocytes (CBC) 1.9 K/uL (0.7-4.9); Absolute Monocytes 0.6 K/uL (0.1-1.3); Absolute Neutrophil 5.7 K/uL (1.8-8.0); Basophils % 0.8 % (0-1.3); Eosinophils % 2.6 % (0-4.4); Hematocrit 20.7 % (39.6-49.0); Lymphocytes % 22.1 % (15.3-44.8); MCH 23.3 pg (27.0-35.0); MCV 74.1 fL (80-100); MPV 9.8 fL (7.6-11.3); Monocytes % 7.1 % (3.3-12.3)
[2018-02-12 11:30] LABS: Protime INR 1.62
[2018-02-12 11:31] LABS: Albumin 2.6 g/dL (3.4-5.0); Bilirubin Total 0.5 mg/dL (0.2-1.0); Magnesium 1.9 mg/dL (1.8-2.4); Potassium 5.1 mmol/L (3.5-5.1); Protein, Total 6.2 g/dL (6.4-8.2)
[2018-02-12] MEDS: SOD FERRIC GLUC COMPLX/SUCROSE 250 MG in NA CHLORIDE 0.9% 250 ML IV SCH (11:46)
[2018-02-12] MEDS ORDERED: NA CHLORIDE 0.9% 250 ML IV SCH (13:00)
[2018-02-12] MEDS ORDERED: HYDRALAZINE HCL 25 MG TABLET PO SCH ×2 (14:00→21:00)
[2018-02-12] MEDS: FUROSEMIDE 40 MG/4 ML VIAL IV SCH ×2 (14:00→21:50)
[2018-02-12] MEDS: GABAPENTIN 300 MG CAP PO SCH ×2 (14:35→21:52)
--- NOTE | 2018-02-12 15:15 | EKG ---
Test Date: 2018-02-12 Test Time: 10:44:35 Scrubber System Attendant: TRENT MEASUREMENT RESULTS: Intervals: Rate: 100 DC: 180 QRSD: 82 QT: 348 QTc: 448 [place]: P: 39 DC: 180 QRS: -12 T: 61 INTERPRETIVE STATEMENTS: Normal sinus rhythm Possible Anterior infarct, age undetermined Abnormal ECG Compared to ECG 02/11/2018 15:59:14 Myocardial infarct finding now present Sinus tachycardia no longer present Left-axis deviation no longer present Electronically Signed On 02-12-18 15:14:59 CDT by Justo Fofana
--- NOTE | 2018-02-12 15:21 | CON ---
History Of Present Illness: Mr. Trejo is 62. He has been having chest pain. Chest pain comes and goes, especially when he gets angry at the nurse. An EKG does not show an acute injury pattern. He has severe renal dysfunction. His most recent creatinine was 4.4, GFR about 17. He is not a dialysi s patient. He is on Eliquis 5 mg b.i.d. since last September, still missing out some medication he takes, and when he came to the hospital, his hemoglobin was 5.3. At this point, he has not had a transfusio n yet. It is ordered, but still has not been given. He is microcytic. He has a history of hyperten sive heart disease. He has congestive heart failure with normal ejection fraction. Echo shows LVH. He has diabetes, hepatitis C, history of DVT, history of peptic ulcer disease, history of cocaine ab use, alcohol abuse, also uses tobacco. He is not aware of any bleeding. He has not had a GI evaluat ion yet, but his hemoglobin is extremely low and he needs a transfusion. It is probably the main thi ng he needs to be able to relieve his chest pain. Physical Examination: General: He is alert, oriented, somewhat angry, cannot stop talking about how much he dislikes one o f the nurses, always causing pain for him with her IV techniques. Lungs: Clear. Heart: Exam does not reveal a friction rub or significant murmur. Abdomen: Soft. Extremities: Mild edema. Distal pulses not palpable. Impression: This is not an acute myocardial infarction. If it were, he would be such a high risk pa tient to do an acute stent with a hemoglobin of 5, not transfused. I am not sure when his last dose of Eliquis was, but he absolutely needs to not be on any blood thinners. He needs to get his transfu marty quickly, be on Protonix, and we will use fentanyl to relieve his pain. He is not in very much pain and it seems to come and go mostly whe n he is angry. CA/ZULEIMA Voice ID: [id number] Report ID: [id number]
--- NOTE | 2018-02-12 15:25 | ECHO ---
HEIGHT: 5 ft 11 in WEIGHT: 203 lb 0 oz DATE OF STUDY: 02/12/[address]: Justo Fofana MD 2-DIMENSIONAL: YES M.MODE: YES DOPPLER: YES COLOR FLOW: YES TDS: NO PORTABLE: NO DEFINITY: NO BUBBLE STUDY: NO DIAGNOSIS: CHEST PAIN CARDIAC HISTORY: CATHERIZATION: NO SURGERY: NO PROSTHETIC VALVE: NO PACEMAKER: NO MEASUREMENTS (cm) DIASTOLIC (NORMALS) SYSTOLIC (NORMALS) IVSd 1.3 (0.6-1.2) LA Diam 4.5 (1.9-4.0) LVEF 53% LVIDd 5.3 (3.5-5.7) LVIDs 3.8 (2.0-3.5) %FS 28% LVPWd 1.4 (0.6-1.2) Ao Diam 3.0 (2.0-3.7) 2 DIMENSIONAL ASSESSMENT: RIGHT ATRIUM: NORMAL LEFT ATRIUM: DILATED RIGHT VENTRICLE: NORMAL LEFT VENTRICLE: LEFT VENTRICULAR HYPERTROPHY TRICUSPID VALVE: NORMAL MITRAL VALVE: NORMAL PULMONIC VALVE: NORMAL AORTIC VALVE: NORMAL PERICARDIAL EFFUSION: NONE AORTIC ROOT: NORMAL LEFT VENTRICULAR WALL MOTION: NORMAL DOPPLER/COLOR FLOW: MILD AORTIC, MITRAL AND TRICUSPID REGURGITATION. ESTIMATED RIGHT VENTRICULAR SYSTOLIC PRESSURE 65 mmHg. SEVERE PULMONARY HYPERTENSION. COMMENTS: NORMAL LEFT VENTRICULAR EJECTION FRACTION. LEFT VENTRICULAR HYPERTROPHY. DILATED LEFT ATRIUM. MILD AORTIC, MITRAL AND TRICUSPID REGURGITATION. SEVERE PULMONARY HYPERTENSION. TECHNOLOGIST: Shiv VELÁSQUEZ
--- NOTE | 2018-02-12 15:45 | CON ---
Date of Consultation: 02/12/2018 Additional Consulting Physician: Dr. Farias. Reason For Consultation: Elevated BUN and creatinine, anasarca, fluid management, hypertension. 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 The patient was seen at that time by Hematology in a previous admission and recommended ramses cooper as outpatient. Apparently, the patient, as usual, did not follow up, and even he did not follow up with his primary care till yesterday when he came to the office and found to have generalized anas arca with shortness of breath. For that reason, the patient was admitted. The patient was found to have overvolume with respiratory distress. Lab showed elevation in BUN and creatinine. Creatinine 4 .5 with GFR of 16. Last creatinine was 3, and at that time, his GFR was 26. The patient also was se verely anemic. H and H down to 5.3/18. The patient denied any nausea or any vomiting. The patient' s urine drug screen again was positive for cocaine. Past Medical History: Include: 1.Diabetes, complicated with neuropathy and nephropathy. 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 Baseline creatinine 3, GFR around 20. 3.Hep C. 4.Cocaine use. 5.Cirrhosis. 6.Congestive heart failure. Allergies: TO STEROID. Medications: Home medications include gabapentin and Eliquis. Current medications in the hospital include Lasix, gabapentin, hydralazine IV, and pantoprazole. Review of Systems: Head and Neck: No red eye. No ear pain. Has headache. GI: No nausea. No vomiting. No melena. : No polyuria. No dysuria. No hematuria. FLOOR AND WALL APPLIER LIQUID: Not applicable. Respiratory: Has shortness of breath. Cardiovascular: Has chest tightness. Endocrine: No polydipsia. Skin: No rash. Neuro: Has neuropathy. Musculoskeletal: Has low back pain. Physical Examination: Vital Signs: When I saw the patient, blood pressure was elevated at 190/103, pulse of 98, afebrile. Chest: Crackles bilaterally. Heart: S1 and S2. Regular. Systolic murmur. Abdomen: Soft, nontender. Extremities: +2 edema. Laboratory Data: WBC 8.5, H and H 6.5/20.7, platelet 130. Sodium 144, potassium 5.1, bicarb 19, chl oride 114, BUN 42, creatinine 4.5, GFR of 16, calcium of 8. Magnesium of 19. Assessment And Plan: 1.Acute kidney injury on advanced chronic kidney disease, secondary to light chain disease, anasarca with marginal hyperkalemia. I am going to start the patient on aggressive diuresis. We will increa se Lasix to 80 mg t.i.d. and we will follow up the patient. I am going to go ahead and get the repea brandie ultrasound just to make sure there is no component of obstruction. 2.Nephrotic range of proteinuria, secondary to light chain disease and diabetic nephropathy. Unfort unately, I cannot add any ALEJANDRO inhibitor for the patient given the advanced kidney disease. The patie nt is known to have hypothyroidism. I going to start the patient on levothyroxine, and we will check for TSH. We will continue on diuresis for the patient. 3.Hypertension, uncontrolled, with active cocaine on board. I going to go ahead and start hydralazi ne, increase Lasix, start nitroglycerin, and we will add beta- and alpha-josé. We will follow up with Cardiology. 4.Anasarca, multifactorial; renal failure; congestive heart failure. As above, we will increase diu resis. We will start the patient on levothyroxine, and we will follow up. 5.Cocaine abuse. Continue supportive care. 6.Diabetes, as by Primary. 7.Anemia, secondary to light chain disease, chronic kidney disease, and iron-deficiency anemia. Sta rt the patient on IV iron. The patient is going to receive transfusion. We will diurese after trans fusion. We will consult Hematology. The case was discussed with the patient who verbalized understanding. Discussed with the staff. ROMAN Voice ID: [id number] Report ID: [id number]
--- NOTE | 2018-02-12 17:03 | RAD REPORT ---
EXAM DESCRIPTION: US - Renal Ultrasound-Complete - 02/12/2018 4:42 pm CLINICAL HISTORY: Acute kidney injury COMPARISON: CT imaging June 2017 FINDINGS: The right kidney measures 10.9 x 4.2 x 6.4 cm. The left kidney measures 11.5 x 5.0 x 4.9 cm. Cortical thickness is normal. Cortical echogenicity is increased consistent with underlying medic al renal disease. A 2 centimeter rounded hypoechoic focus is present medial left kidney. No definitiv e correlate on the prior CT study. This may represent an extrarenal pelvis or parapelvic cyst. Aggres sive renal process is unlikely. No bladder wall thickening or mass. No intraluminal stone or mass. IMPRESSION: No hydronephrosis or suspicious renal mass. Underlying medical renal disease is evident. 2 centimeter hypoechoic focus medial left kidney could be a cyst or extrarenal pelvis. Aggressive pro cess is unlikely. This can be re-evaluated in 3-4 months.
--- NOTE | 2018-02-12 17:15 | CON ---
Date of Consultation: 02/12/2018 SURGICAL CONSULTATION Brief History Of Present Illness: The patient is a 62-year-old gentleman known to huong allan from multiple previous admissions with a history of cocaine abuse and a gastric ulcer and significa nt noncompliance with medical treatment as an outpatient, who presents to Dr. Farias's office after he called Dr. Farias's office complaining of hopelessness and weakness. He states he stopped taking all of his medication. He had no followup with any of the physicians including myself or delia Moreira he has been actively using cocaine in the recent history. He was admitted to the emergency room an d found to be anemic. As such, I was consulted for the patient for this reason. Past Medical History: Significant for hepatitis C, gastric ulcer, CHF, CKD, CVA in 2015, high choles terol, arthritis, anemia, drug abuse. Allergies: CORTICOSTEROIDS. Home Medications: Amlodipine, Neurontin, Coreg, spironolactone, Bumex, Protonix, isosorbide mononitr ate, tramadol, and Cardura. Social History: He admits to cocaine use and alcohol use as well heavily. Review of Systems: A 10-point review of systems other than HPI, he currently only complains of chest pain, which is a ne w finding for him. His BMI is 28.3. Physical Examination: VITAL SIGNS: Blood pressure 194/103, pulse is 98, temperature 98.5, respiratory rate 18, oxygen satu ration 97% on room air. GENERAL: He is awake, alert, oriented. PSYCHIATRIC: He is appropriate and conversive. HEENT: He is normocephalic. His sclerae are anicteric. His mucous membranes are moist. His oropha rynx is clear. NECK: Supple with no JVD. CHEST: Normal expansion and excursion. CARDIOVASCULAR: Regular rate and rhythm. ABDOMEN: Soft, nontender. EXTREMITIES: He has 2+ pitting edema in his lower extremities. Laboratory Data: He has a white blood cell count today of 8.5, hemoglobin 6.5 up from 5.3 on admissi on. He was transfused 2 units of PRBCs and IV fluids. Hematocrit is 20.7, platelet count is 130, ne utrophils are 67%. His coagulation shows a PT of 19.2, INR of 1.62 down from 2.15 on admission, PTT 31.1. Chemistry shows a sodium of 144, potassium 5.1, chloride 114, carbon dioxide 19, BUN 42, creat inine 4.5, glucose is 141. His magnesium is 1.9. His AST is 185, ALT 104, alkaline phosphatase 62. Troponin 0.2. His toxicology screen was positive for cocaine. He had imaging included a chest x-ra y performed in the emergency room, which was officially read as mild pulmonary edema, right basilar o pacity, presenting combination of pleural effusion and atelectasis. Assessment And Plan: This is a 62-year-old male who comes in with recurrent anemia. 1.Blood product resuscitation to include PRBC and FFP. Gentle resuscitation is recommended as the p atient has significant cardiovascular compromise with his significant pitting edema overall and seems to have fluid overload at this time. Therefore, Lasix and judicious administration should be given as the patient also has concurrent renal disease. 2.Serial abdominal exams and look for any signs of gastrointestinal bleeding as he currently denies this. We will follow along. He has had emesis with no blood as well by report as an outpatient, but we will continue to perform serial exams. 3.Hypertension control. Recommended to prevent rupture of a clot precipitating a bleeding event. 4.Continue medical management per Dr. Farias and Dr. Fofana. AARON/ZULEIMA Voice ID: [id number] Report ID: [id number]
[2018-02-12 17:40] VITALS: BMI 30.9
[2018-02-12] MEDS ORDERED: CARVEDILOL 12.5 MG TAB PO SCH (21:00)
[2018-02-12] MEDS ORDERED: CARVEDILOL 6.25 MG TAB PO SCH ×2 (21:00)
[2018-02-12] MEDS: FENTANYL CITR 100 MCG/2 ML IV PRN (21:49)
[2018-02-13 00:52] LABS: Protime INR 1.41
[2018-02-13 06:06] LABS: Hematocrit 26.3 % (39.6-49.0); MCH 24.1 pg (27.0-35.0); MCV 75.7 fL (80-100); MPV 10.1 fL (7.6-11.3); RBC Red Blood Cell Count 3.47 M/uL (4.33-5.43)
[2018-02-13 06:08] LABS: Albumin 2.5 g/dL (3.4-5.0); Bilirubin Total 0.6 mg/dL (0.2-1.0); Potassium 4.9 mmol/L (3.5-5.1); Protein, Total 5.9 g/dL (6.4-8.2)
[2018-02-13] MEDS: HYDRALAZINE HCL 20 MG/ML VIAL IV PRN (06:11)
[2018-02-13] MEDS: PANTOPRAZOLE 40MG TABLET PO SCH (06:11)
[2018-02-13] MEDS: LEVOTHYROXINE SOD 0.025 MG TAB PO SCH (06:14)
[2018-02-13 06:45] LABS: Protime INR 1.34
[2018-02-13 07:13] LABS: Anisocytosis 2+; Blood Morphology Comment NOTED (NOT SEEN); Platelet Estimate ADEQ; Poikilocytosis 1+
[2018-02-13] MEDS: CARVEDILOL 12.5 MG TAB PO SCH ×2 (10:00→17:22)
[2018-02-13] MEDS: GABAPENTIN 300 MG CAP PO SCH ×3 (10:00→20:32)
[2018-02-13] MEDS: FUROSEMIDE 40 MG/4 ML VIAL IV SCH ×3 (10:01→20:33)
[2018-02-13] MEDS: HYDRALAZINE HCL 25 MG TABLET PO SCH ×3 (10:01→20:32)
--- NOTE | 2018-02-13 10:36 | P.PN ---
Subjective Date of Service: 02/13/18 Primary Care Provider: Jarrett Chief Complaint: Chf exacerbation Subjective: Improving (patient is looking better, no longer complainting of chest pain) Review of Systems 10-point ROS is otherwise unremarkable General: Weakness Cardiovascular: Edema (2+) Physical Examination - Vital Signs Temperature: 97.0 F Blood Pressure: 182/86 Pulse: 75 Respirations: 12 Pulse Ox (%): 100 - Physical Exam General: Alert, In no apparent distress HEENT: Atraumatic, PERRLA, EOMI Neck: Supple, JVD not distended Respiratory: Clear to auscultation bilaterally, Normal air movement Cardiovascular: Regular rate/rhythm, Normal S1 S2, Edema (2+) Gastrointestinal: Normal bowel sounds, No tenderness Musculoskeletal: No tenderness Integumentary: No rashes Neurological: Normal speech, Normal tone, Normal affect Lymphatics: No axilla or inguinal lymphadenopathy Assessment & Plan - Problems (Diagnosis) (1) Chest pain Onset Date: 09/05/15 Current Visit: No Status: Acute Plan: Mild elevation in troponins. He was treated medically. Not a good candidate for angiogram as it would destroy his kidneys and he cannot be anticoagulated. Per Dr. Alvarado he can leave the ICU. Qualifiers: Ischemic chest pain type: unstable angina pectoris (2) CHF (congestive heart failure) Onset Date: 07/15/17 Current Visit: No Status: Acute Plan: Improving. Will continue diuresis per Dr. Rose. Qualifiers: Heart failure type: diastolic Heart failure chronicity: acute on chronic Qualified Code(s): I50.33 - Acute on chronic diastolic (congestive) heart failure (3) Anemia Onset Date: 09/05/15 Current Visit: No Status: Acute Plan: He did have a large gastric ulcer. Improved after his 3rd unit of blood Qualifiers: Anemia type: iron deficiency Iron deficiency anemia type: chronic blood loss Qualified Code(s): D50.0 - Iron deficiency anemia secondary to blood loss (chronic) (4) Stage 4 chronic kidney disease Onset Date: 02/12/18 Current Visit: Yes Status: Acute Plan: Have consult Dr. Rose for the creatine and gfr. Will need to be careful as he needs diuresis as well. kidney preservation. (5) Cocaine abuse Onset Date: 04/08/17 Current Visit: No Status: Chronic Plan: Will discuss again with the patient. Will need to give him the outpatient resources. (6) Hyperkalemia Onset Date: 02/12/18 Current Visit: No Status: Resolved Plan: Treatment as per Dr. Rose. Will continue to monitor. Discharge Plan: Home Plan to discharge in: Greater than 2 days - Code Status/Comfort Care Code Status Assessed: Yes Code Status: Full Code Physician Review: Patient Assessed, Agree with Above Assessment and Plan Critical Care: Yes Time Spent Managing Pts Care (In Minutes): 25
[2018-02-13] MEDS: NITROGLYCERIN 0.2 MG/HR (5 MG) PATCH TD SCH (10:56)
--- NOTE | 2018-02-13 13:16 | PN ---
Subjective: Admitted by Dr. Farias on 02/11/2018. He was seen by Dr. Fofana on 02/12/2018 for shortn ess of breath, atrial fibrillation. The patient was found to have a hemoglobin of 5.0, creatinine of 4.4. Echo that was done yesterday showed an ejection fraction that was normal with left ventricular hypertrophy and severe pulmonary hypertension. Today his creatinine is 4.5. His PT is high as 15.8 . He is off Eliquis. Remained in atrial fibrillation, rate controlled. I think he should remain of f Eliquis. He is status post fresh frozen plasma. He is hemodynamically stable. He has received bl ood transfusion. He can go to the floor off Eliquis. GI consultation is pending. No further cardia c workup at this point. REAGAN/ZULEIMA Voice ID: [id number] Report ID: [id number]
--- NOTE | 2018-02-13 15:54 | P.PN ---
Date of Service: 02/13/18 (Hematology/Oncology) Pt is 62 year old man with multiple co-morbidities including CKD-4, CHF, gastric ulcers, Drug ause admitted now for worsening s/s of anemia and anarsaca. He was seen by Hematology last admission for similar issues. He was advised strongly to follow up as outpatient. He reports that he did see a Mechanical Designer in [facility] and was in the process of getting evaluated with a bone marrow biopsy but was concerned about possible discomfort during the procedure and did not follow up. In the ER he was found to be severely anemia with a Hb of 5.3. He reports taking eliquis for a blood clot of the left upper extremity all this time (the blood clot was a superficial vein thrombus in July 2017). He has h/o gastric ulcers. He has received prbc transfusion with appropriate with improvement in Hb and also FFP to stabilize the INR. He has worsening renal functions with BUN/ CR 42/4.5 and current undergoing diuresis.with symptomatic improvement. 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 He reports feeling much better since admission post diuresis and transfusion with improvement in edema and breathing. Denies any pain. Denies fevers, chills , night sweats, bone pain or unusual back pains. He reports having a great appetite. Denies any chest pains, abd pains, N/V/Diarrhea, constipation. Unclear if any change in stool color, bleeding per rectum, melena. Denies any urinary complaints, hematuria, dysuria. Denies any headaches, blurred vision, dizziness, imbalance etc. 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 Cocaine + FH: unaware of any familial malignancies. Allergies: Steroids Exam: Vitals signs reviewed. Hemodynamically stable General: Appears comfortable, lying in bed. HEENT: Atraumatic, normocephalic. PERRLA. mmm Neck: Supple. No JVD. No carotid bruits. Chest: good air entry, basal creps. Heart: Regular rate and rhythm. S1, S2 normal. No gallop or murmur. Anarsaca+ . Positive bowel sounds. Extremities: edema+ No calf tenderness. Neuro: AAOx3; moves all extremities. (Has to life legs with assistance) Laboratory Data: WBC 6; H and H 5./18; MCV 71; platelets of 148. 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 Nodular Glomerulosclerosis; rule out Diabetic Disease. No Global Glomerulosclerosis (0/12). Interstitial Fibrosis, Severe. Arteriosclerosis, Severe. Arteriolar Hyalinosis, Severe. Comment: The diagnosis of light chain deposition disease is based on the stronger staining for lambda (3+) as compared to kappa (trace). No definitive punctate deposits are seen on electron microscopy. Clinical correlation to exclude underlying paraproteinemia, plasma cell dyscrasia, and lymphoproliferative disorder is suggested Assessment/Recommendations: 62 year old with multiple medical problems as above admitted with s/s of anemia / volume overload and acute on chronic kidney failure. Hematology consulted for evaluation of light chain deposition on kidney biopsy. 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 There is acute on chronic kidney failure at this time. His CKD is likely due to chronic DM/HTN though light chains might contribute to renal failure as well. Last UPEP showed no monoclonal bands. Kidney biopsy reports as lambda chains on immunofluorescence (not seen in electron microscopy). He will need a comprehensive work up to assess light chain disease secondary to plasma cell dyscrasia/ ? amyloidosis given nephrotic range proteinuria. Repeat labs with SPEP with TOBY, 24 hr urine for protein. 24 hr UPEP with immunofixation, Quantitative immunoglobulins (IgG, A, M). A bone marrow biopsy will be part of the work up as well. He claims not having the work up due to fear of the procedure. Bone marrow biopsy can be done under sedation and CT guided if needed. We discussed about the risks and benefits of the procedure. He will follow up with Mechanical Designer for outpatient evaluation and further discussion. He understands that compliance is crucial at this time and without a diagnosis, no further treatment can be suggested. He understands the possibility of disease progression with end organ failure as well. Management of a possible plasma cell dyscrasia if confirmed in the setting of his multiple medical issues like CHF, CKD, DM, gastric ulcers will be quite challenging as well. 2. GI bleed: Unclear if GI bleed. He does have evidence of iron deficiency. Some degree of anemia from chronic kidney disease.l. GI evaluation is recommended to make sure no bleed, given h/o gastric ulcers in the past. Appropriate response post PRBC transfusion. Iron levels likely to improve post transfusion. He is also getting iron sucrose. 3. Superficial vein thrombosis (SVT) post IV access in July 2017: Cephalic vein is a superficial vein and senior living anticoagulation is generally not indicated unless its a DVT or progressively extending SVT. At this time, anticoagulation is contraindicated in the context of GI bleed. 4.CHF, DM, HTN: Management as per his pcp for optimization. 5. Hep C: He might likely have underlying liver disease as well. He has elevated liver enzymes, elevated coags on admission. He needs to have treatment for Hep C. Follow up with GI. Patient strongly advised to follow up with his Mechanical Designer in [facility] (he is unable to give details) post discharge for further work up and management. Case d/w house staff.
[2018-02-13] MEDS: FENTANYL CITR 100 MCG/2 ML IV PRN (20:44)
--- NOTE | 2018-02-13 22:54 | PN ---
Date of Progress Note: 02/13/2018 Subjective: The patient was admitted with anasarca, acute kidney injury on chronic kidney disease se condary to diabetes, light chain disease. Confirmed with the kidney biopsy. Physical Examination: Vital Signs: When I saw the patient, blood pressure 138/74, pulse of 74, afebrile. General: The patient responds very well to the diuresis. Had urine output of 2900. Still no signif icant weight loss. Chest: Clear to auscultation. Heart: S1, S2. Regular. Systolic murmur. Abdomen: Soft, nontender. Extremities: +1 edema, not much significant reduction compared to on admission. Neuro: Alert, oriented x3. No focal. Laboratory Data: WBC 7, H and H 8.4/26.3, platelets of 123. His H and H, this is after transfusion. Sodium 143, potassium 4.9, bicarb 20, BUN 42, creatinine 4.5, GFR still 16, calcium 8.1. Current Medications: The patient on Lasix 80 mg t.i.d., IV iron, gabapentin, hydralazine, nitroglyce rin, and pantoprazole. Assessment And Plan: 1.Acute kidney injury/progression of kidney disease secondary to diabetes and light chain disease st ill over volume. I am going to continue on current diuresis regimen. I am going to restrict the pat ient's diet down to 1200 and we will monitor the patient closely. 2.Hypertension, better controlled. Continue to utilize the blood pressure for more diuresis. 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 Continue IV iron. We will follow up. 4.Anasarca secondary to nephrotic range proteinuria. 5.Hypothyroidism. Continue diuresis. I am going to repeat TSH. 6.Hepatitis C. Refused treatment, will follow up with the primary. MALINDA/ZULEIMA Voice ID: [id number] Report ID: [id number]
[2018-02-14] MEDS: HYDRALAZINE HCL 20 MG/ML VIAL IV PRN (02:20)
[2018-02-14] MEDS: PANTOPRAZOLE 40MG TABLET PO SCH (05:51)
[2018-02-14] MEDS: LEVOTHYROXINE SOD 0.025 MG TAB PO SCH (05:51)
[2018-02-14 06:26] LABS: Protime INR 1.27
[2018-02-14 06:34] LABS: Albumin 2.5 g/dL (3.4-5.0); Bilirubin Total 0.4 mg/dL (0.2-1.0); Potassium 4.5 mmol/L (3.5-5.1); Protein, Total 5.9 g/dL (6.4-8.2)
[2018-02-14 06:46] LABS: Absolute Lymphocytes (CBC) 2.1 K/uL (0.7-4.9); Absolute Monocytes 0.6 K/uL (0.1-1.3); Absolute Neutrophil 5.3 K/uL (1.8-8.0); Basophils % 0.5 % (0-1.3); Eosinophils % 4.3 % (0-4.4); Hematocrit 24.5 % (39.6-49.0); Lymphocytes % 24.8 % (15.3-44.8); MCH 23.7 pg (27.0-35.0); MCV 74.5 fL (80-100); MPV 9.3 fL (7.6-11.3); RBC Red Blood Cell Count 3.29 M/uL (4.33-5.43)
[2018-02-14] MEDS: HYDRALAZINE HCL 25 MG TABLET PO SCH ×3 (10:16→20:46)
[2018-02-14] MEDS: FUROSEMIDE 40 MG/4 ML VIAL IV SCH ×3 (10:16→20:47)
[2018-02-14] MEDS: GABAPENTIN 300 MG CAP PO SCH ×3 (10:16→20:50)
[2018-02-14] MEDS: CARVEDILOL 12.5 MG TAB PO SCH ×2 (10:17→17:14)
[2018-02-14] MEDS: NITROGLYCERIN 0.2 MG/HR (5 MG) PATCH TD SCH (10:18)
[2018-02-14 10:20] LABS: Anisocytosis 2+; Blood Morphology Comment NOTED (NOT SEEN); Hypochromasia 1+; Platelet Estimate ADEQ; Target Cells 1+; Urine White Blood Cell Casts OK
[2018-02-14] MEDS: FENTANYL CITR 100 MCG/2 ML IV PRN ×2 (10:27→21:57)
--- NOTE | 2018-02-14 11:49 | RAD REPORT ---
EXAM DESCRIPTION: RAD - Chest Single View - 02/14/2018 11:42 am CLINICAL HISTORY: cough Chest pain. COMPARISON: Chest Single View dated 02/11/2018; Chest Single View dated 11/07/2017; Chest Single View dated 07/16/2017; Chest Single View dated 07/09/2017 FINDINGS: Portable technique limits examination quality. Mild improvement in right basilar pleural and parenchymal opacification seen since the comparative st udy. The heart is mildly to moderately enlarged in size. No displaced fractures. IMPRESSION: Mild improvement in right basilar lung aeration since comparative study.
[2018-02-14] MEDS ORDERED: TRAMADOL HCL 50 MG TAB PO PRN (16:27)
--- NOTE | 2018-02-14 16:32 | P.PN ---
Subjective Date of Service: 02/14/18 Primary Care Provider: Dr. Farias(I am covering for him) Chief Complaint: Chf exacerbation Subjective: Improving (Patient reports cough) Physical Examination - Vital Signs Temperature: 97.8 F Blood Pressure: 167/81 Pulse: 75 Respirations: 18 Pulse Ox (%): 96 - Physical Exam General: Alert, In no apparent distress, Oriented x3, Cooperative HEENT: Atraumatic Neck: Supple Respiratory: Crackles/rales (Crackles to the bases) Cardiovascular: Normal pulses, Regular rate/rhythm Gastrointestinal: Normal bowel sounds, Soft and benign, Non-distended, No tenderness, No masses, No rebound, No guarding Musculoskeletal: No erythema, No tenderness, No warmth Integumentary: Tenderness/swelling (Edema to the lower extremities improved) Neurological: Normal speech, Normal strength at 5/5 x4 extr, Normal tone, Normal affect - Studies Medications List Reviewed: Yes Assessment & Plan Discharge Plan: Other (Skilled placement facility) Plan to discharge in: 72 Hours Physician Review Additional Text: Impression: Anasarca secondary to acute on chronic renal disease secondary to diabetes and light chain disease Diabetes mellitus type 2 Hypertension Severe pulmonary hypertension with ejection fraction 53% Iron deficiency anemia Hypothyroidism Hepatitis-C GERD Plan: Anasarca secondary to acute on chronic renal disease secondary to diabetes and light chain disease: Will continue monitor renal function. Will follow with nephrology. Diabetes mellitus type 2: Will continue with sliding scale. Hypertension: Continue with carvedilol 12.5 mg 1 pill twice daily, hydralazine 75 mg 1 pill 3 times a day and nitro patch. Severe pulmonary hypertension with ejection fraction 53%: Will continue with 1500 cc per day fluid restriction and diuretic therapy. Patient currently on Lasix 80 mg IV 3 times a day. Iron deficiency anemia: Will continue with IV iron and monitor hemoglobin Hypothyroidism: Will continue with medication Hepatitis-C: Stable. GERD: Will continue with Protonix. Case discussed at length with patient. Patient willing to go to a skilled facility to continue rehabilitation. medical services coordinator will help in this process. Time Spent Managing Pts Care (In Minutes): 55
[2018-02-14] MEDS ORDERED: EPOETIN ALFA 10,000 UNIT/ML SQ ONE (22:30)
[2018-02-15] MEDS ORDERED: EPOETIN ALFA 10,000 UNIT/ML VIAL ONE (00:04)
[2018-02-15] MEDS ORDERED: D50W 25 GM/50 ML SYRINGE IV PRN (04:01)
[2018-02-15] MEDS ORDERED: GLUCAGON 1 MG/VIAL IM PRN (04:01)
--- NOTE | 2018-02-15 04:27 | PN ---
Date of Progress Note: 02/14/2018 History Of Present Illness: The patient was admitted with anasarca, acute kidney injury on a chronic kidney disease, being diuresed, respond very well. Physical Examination: Vital Signs: Blood pressure 152/76, pulse was 72. Chest: Decreased entry bilateral base. Heart: S1, S2. Regular. Abdomen: Soft, nontender. Extremities: Plus edema. Laboratory Data: H and H 7.9/25, WBC 8.3. Sodium 144, potassium 4.1, bicarb 20, BUN 45, creatinine 4.7, GFR of 16, calcium 8.1. Medications: Current medications the patient is on include: 1.IV iron. 2.Carvedilol 12.5. 3.Hydralazine. 4.Nitroglycerin. 5.Lasix 80 t.i.d. 6.Pantoprazole. 7.Levothyroxine. 8.Fentanyl. 9.Tramadol. Assessment And Plan: 1.Acute kidney injury on advanced chronic kidney disease, been normal volume. 2.I am going to go ahead and to switch the patient to oral Lasix, and we will follow up the patient. 3.Hypertension. We will utilize blood pressure for more diuresis. 4.Hyperkalemia, resolved. 5.Anasarca. Follow up TSH. Continue diuresis. ROMAN Voice ID: [id number] Report ID: [id number]
[2018-02-15 05:17] LABS: Thyroid Stimulating Hormone 5.22 uIU/mL (0.360-3.740)
[2018-02-15] MEDS: LEVOTHYROXINE SOD 0.025 MG TAB PO SCH (05:52)
[2018-02-15] MEDS: PANTOPRAZOLE 40MG TABLET PO SCH (05:52)
[2018-02-15] MEDS: FENTANYL CITR 100 MCG/2 ML IV PRN ×3 (05:53→20:54)
[2018-02-15] MEDS: HYDRALAZINE HCL 20 MG/ML VIAL IV PRN ×2 (05:59→11:22)
[2018-02-15] MEDS: INSULIN -REGULAR HUMAN 50 UNIT/0.5 ML ML SQ SCH ×4 (07:30→20:55)
[2018-02-15 08:35] LABS: Basophils % 0.4 % (0-1.3); Hematocrit 26.8 % (39.6-49.0); Lymphocytes % 35.1 % (15.3-44.8); MCH 24.1 pg (27.0-35.0); MCV 75.5 fL (80-100); MPV 9.1 fL (7.6-11.3); Monocytes % 7.2 % (3.3-12.3); RBC Red Blood Cell Count 3.55 M/uL (4.33-5.43)
[2018-02-15] MEDS: GABAPENTIN 300 MG CAP PO SCH ×3 (08:51→20:54)
[2018-02-15] MEDS: FUROSEMIDE 40 MG TABLET PO SCH ×3 (08:51→20:53)
[2018-02-15] MEDS: HYDRALAZINE HCL 25 MG TABLET PO SCH ×3 (08:52→20:52)
[2018-02-15] MEDS: CARVEDILOL 12.5 MG TAB PO SCH (08:52)
[2018-02-15] MEDS: NITROGLYCERIN 0.2 MG/HR (5 MG) PATCH TD SCH (08:58)
[2018-02-15 09:15] LABS: Magnesium 1.7 mg/dL (1.8-2.4); Potassium 4.4 mmol/L (3.5-5.1)
--- NOTE | 2018-02-15 09:27 | P.PN ---
Subjective Date of Service: 02/15/18 Primary Care Provider: Dr. Farias(I am covering for him) Chief Complaint: Chf exacerbation Subjective: Improving (Patient continues to improve. Lower extremity edema improved.) Physical Examination - Vital Signs Temperature: 97 F Blood Pressure: 193/95 Pulse: 97 Respirations: 18 Pulse Ox (%): 96 - Physical Exam General: Alert, In no apparent distress, Oriented x3, Cooperative HEENT: Atraumatic Neck: Supple Respiratory: Clear to auscultation bilaterally, Normal air movement Cardiovascular: Normal pulses, Regular rate/rhythm Gastrointestinal: Normal bowel sounds, Soft and benign, Non-distended, No tenderness, No masses, No rebound, No guarding Musculoskeletal: No tenderness, No warmth Integumentary: Tenderness/swelling (Lower extremity edema improved) Neurological: Normal speech, Normal strength at 5/5 x4 extr, Normal tone, Normal affect - Studies Medications List Reviewed: Yes Assessment & Plan Discharge Plan: Other (Skilled placement) Plan to discharge in: 48 Hours Physician Review Additional Text: Impression: Anasarca secondary to acute on chronic renal disease secondary to diabetes and light chain disease Diabetes mellitus type 2 Hypertension Severe pulmonary hypertension with ejection fraction 53% Iron deficiency anemia Hypothyroidism Hepatitis-C GERD History of DVT prior use of chronic anti coagulation therapy History of cocaine use, alcohol use, and tobacco abuse Plan: Anasarca secondary to 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 Renal function remained stable. Patient on oral Lasix. Continue with diuresis. Will follow with nephrology. Patient agrees to go to a skilled facility. Anticipate placement to skilled facility on Saturday. Diabetes mellitus type 2: Will continue with sliding scale. Blood sugar stable. Hypertension: Will increase carvedilol to 25 mg 1 pill twice daily for better control. Patient currently on hydralazine 75 mg 1 pill 3 times a day. Will continue to monitor and address Severe pulmonary hypertension with ejection fraction 53%: Will continue with 1500 cc per day fluid restriction and diuretic therapy. Patient currently on Lasix 80 mg 1 pill 3 times a day. Iron deficiency anemia: Will continue with IV iron and monitor hemoglobin Hypothyroidism: Will continue with medication Hepatitis-C: Stable. GERD: Will continue with Protonix. History of DVT with prior use of chronic anti coagulation therapy: Eliquis has been discontinued due to anemia. History of cocaine use, alcohol use and tobacco abuse. Continue cessation education. Time Spent Managing Pts Care (In Minutes): 55
[2018-02-15] MEDS: SOD FERRIC GLUC COMPLX/SUCROSE 250 MG in NA CHLORIDE 0.9% 250 ML IV SCH (11:13)
[2018-02-15 11:40] LABS: Anisocytosis 2+; Blood Morphology Comment NOTED (NOT SEEN); Hypochromasia 1+; Platelet Estimate ADEQ; Poikilocytosis 2+; Polychromasia 1+
[2018-02-15] MEDS: CARVEDILOL 25 MG TAB PO SCH (16:38)
--- NOTE | 2018-02-15 18:27 | PN ---
Date of Progress Note: 02/15/2018 Subjective: The patient doing well. The patient was switched to oral Lasix yesterday, still maintai ramin good urine output. Objective: Vital Signs: When I saw the patient, blood pressure of 193/95, pulse of 73. Afebrile. Chest: Clear to auscultation. Heart: S1, S2. Systolic murmur. Abdomen: Soft, nontender. Extremities: Trace edema. Laboratory Data: H and H 8.6/26.8. Sodium of 142, potassium 4.4, bicarb 21, BUN 46, creatinine 4.6, GFR of 16, calcium 8.2, magnesium 1.7. Current Medications: The patient is on it includes: 1.Carvedilol 25 mg has been the increased yesterday. 2.Fentanyl. 3.IV iron. 4.Gabapentin. 5.Hydralazine 75. 6.Levothyroxine. 7.Nitroglycerin. 8.Tramadol. Assessment And Plan: 1.Chronic kidney disease stage 4 progression with over volume currently thought to be normal volume. I am going to continue diuresis. Continue current dose of Lasix as oral. 2.Hypertension, uncontrolled. I am going to go ahead and increase his hydralazine to 100 mg, and we will follow up the patient. 3.Anasarca, secondary to cardiorenal/nephrotic range of proteinuria. Continue diuresis. 4.Hyperkalemia, has been resolved. 5.Light chain disease. Need to follow up with Hematology as outpatient. 6.Iron deficiency anemia. Continue IV iron. MALINDA/ZULEIMA Voice ID: [id number] Report ID: [id number]
[2018-02-16] MEDS: FENTANYL CITR 100 MCG/2 ML IV PRN (04:44)
[2018-02-16] MEDS: PANTOPRAZOLE 40MG TABLET PO SCH (05:29)
[2018-02-16] MEDS: LEVOTHYROXINE SOD 0.05 MG TABLET PO SCH (05:29)
[2018-02-16 05:55] LABS: Magnesium 1.6 mg/dL (1.8-2.4); Potassium 4.5 mmol/L (3.5-5.1)
[2018-02-16 06:02] LABS: MPV 9.6 fL (7.6-11.3)
[2018-02-16 06:06] LABS: Absolute Lymphocytes (CBC) 2.2 K/uL (0.7-4.9); Absolute Monocytes 0.5 K/uL (0.1-1.3); Absolute Neutrophil 3.9 K/uL (1.8-8.0); Basophils % 0.7 % (0-1.3); Eosinophils % 3.7 % (0-4.4); Hematocrit 24.6 % (39.6-49.0); Lymphocytes % 32.1 % (15.3-44.8); MCV 75.8 fL (80-100); Monocytes % 7.6 % (3.3-12.3); RBC Red Blood Cell Count 3.24 M/uL (4.33-5.43)
[2018-02-16] MEDS ORDERED: MAGNESIUM SULFATE 1 gm IVPB 1 GM/100 ML BAG IV ONE (06:07)
[2018-02-16 06:22] LABS: MCH 24.7 pg (27.0-35.0)
[2018-02-16] MEDS ORDERED: NA CHLORIDE 0.9% 50 ML ONE (06:40)
[2018-02-16] MEDS: INSULIN -REGULAR HUMAN 50 UNIT/0.5 ML ML SQ SCH ×4 (07:30→21:00)
--- NOTE | 2018-02-16 08:17 | P.PN ---
Subjective Date of Service: 02/16/18 Primary Care Provider: Dr. Farias(I am covering for him) Chief Complaint: Chf exacerbation Subjective: Improving (Patient is slowly ambulating. Edema to the lower extremities improved. Patient has agreed to go to a skilled facility.) Physical Examination - Vital Signs Temperature: 97.9 F Blood Pressure: 160/78 Pulse: 75 Respirations: 20 Pulse Ox (%): 98 - Physical Exam General: Alert, In no apparent distress, Oriented x3, Cooperative HEENT: Atraumatic Neck: Supple Respiratory: Clear to auscultation bilaterally, Normal air movement Cardiovascular: Normal pulses, Regular rate/rhythm Gastrointestinal: Normal bowel sounds, Soft and benign, Non-distended, No tenderness, No masses, No rebound, No guarding Musculoskeletal: No tenderness, No warmth Integumentary: No erythema, No warmth, No cyanosis, Tenderness/swelling (Edema to the lower extremities improved) Neurological: Normal speech, Normal strength at 5/5 x4 extr, Normal tone, Normal affect - Studies Medications List Reviewed: Yes Assessment & Plan Discharge Plan: Other (Skilled facility placement) Plan to discharge in: 24 Hours Physician Review Additional Text: Impression: Anasarca secondary to acute on chronic renal disease secondary to diabetes and light chain disease Diabetes mellitus type 2 Hypertension Severe pulmonary hypertension with ejection fraction 53% Iron deficiency anemia Hypothyroidism Hepatitis-C GERD History of upper extremity DVT July 2017 with prior use of chronic anti coagulation therapy History of cocaine use, alcohol use, and tobacco abuse Plan: Anasarca secondary to 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 Renal function remained stable. Patient continues with Lasix 3 times a day. Continue with diuresis and monitoring of weight. Nephrology adjusting medication. Patient has agreed to go to a skilled facility to continue his care. Physical therapy to continue to work with patient to ambulate. Anticipate discharge to skilled facility tomorrow. senior administrative services officer consulted. Dr. Farias to assume care tomorrow. Diabetes mellitus type 2: Will continue with sliding scale. Blood sugar stable. Hypertension: Blood pressure medication continues to be adjusted. Patient on carvedilol 25 mg 1 pill twice daily and hydralazine 100 mg 1 pill 3 times a day. Will continue to monitor and address appropriately. Nephrology also adjusting medication. Severe pulmonary hypertension with ejection fraction 53%: Will continue with 1500 cc per day fluid restriction and diuretic therapy. Patient currently on Lasix 80 mg 1 pill 3 times a day. Iron deficiency anemia: Will continue with IV iron and monitor hemoglobin. Hemoglobin remained stable. Hypothyroidism: Will continue with medication Hepatitis-C: Stable. This can be further addressed as an outpatient with GI. GERD: Will continue with Protonix. History of upper extremity DVT July 2017 with prior use of chronic anti coagulation therapy: Eliquis has been discontinued due to anemia. Likely no further need for chronic anti coagulation. History of cocaine use, alcohol use and tobacco abuse. Continue cessation education. Time Spent Managing Pts Care (In Minutes): 55
[2018-02-16] MEDS: NITROGLYCERIN 0.2 MG/HR (5 MG) PATCH TD SCH (09:00)
[2018-02-16] MEDS: HYDROCODONE/APAP 7.5/325 MG TAB PO PRN ×3 (09:34→22:13)
[2018-02-16] MEDS: HYDRALAZINE HCL 25 MG TABLET PO SCH ×3 (09:34→21:38)
[2018-02-16] MEDS: CARVEDILOL 25 MG TAB PO SCH ×2 (09:35→17:11)
[2018-02-16] MEDS: FUROSEMIDE 40 MG TABLET PO SCH ×3 (09:35→21:37)
[2018-02-16] MEDS: GABAPENTIN 300 MG CAP PO SCH ×3 (09:35→21:38)
--- NOTE | 2018-02-16 14:19 | PN ---
Date of Progress Note: 02/16/2018 Subjective: The patient is doing better. Blood pressure still not controlled. The swelling has been subsided significantly. Physical Examination: Vital Signs: Blood pressure 160/78, pulse of 75, afebrile. Chest: Clear to auscultation. Heart: S1, S2. Regular. Abdomen: Soft, nontender. Extremities: Trace edema. Laboratory Data: WBC 6.9, H and H 8 and 24.6. Sodium 141, potassium 4.5, bicarb 21, BUN 39, creatinine 4.6, GFR of 16, calcium 7.6, magnesium 1.6. Assessment And Plan: 1. Chronic kidney disease secondary to diabetes, nephropathy, and light chain disease I am going to continue current diuresis and we will monitor. 2. Hypertension, not controlled. I am going to go ahead and add nifedipine. Continue diuresis. 3. Iron deficiency anemia/light chain disease. The patient started on IV iron and Epogen. We will follow up. 4. Diabetes, as by primary. 5. Hypomagnesemia. We will supplement. Medications: Current medications the patient on include: 1. Carvedilol 25 b.i.d. 2. Lasix 80 t.i.d. 3. Gabapentin. 4. Hydralazine 100 t.i.d. 5. Insulin. 6. Pantoprazole. 7. Benedicto. MALINDA/ZULEIMA Voice ID: [id number] Report ID: [id number] KATIE
[2018-02-17] MEDS: PANTOPRAZOLE 40MG TABLET PO SCH (05:53)
[2018-02-17] MEDS: LEVOTHYROXINE SOD 0.05 MG TABLET PO SCH (05:53)
[2018-02-17 06:20] LABS: Potassium 4.1 mmol/L (3.5-5.1)
[2018-02-17 07:27] LABS: Hematocrit 25.2 % (39.6-49.0); MCH 24.1 pg (27.0-35.0); MCV 77.4 fL (80-100); MPV 9.6 fL (7.6-11.3); RBC Red Blood Cell Count 3.25 M/uL (4.33-5.43)
[2018-02-17 08:35] LABS: Protime INR 1.14
--- NOTE | 2018-02-17 09:19 | P.PN ---
Subjective Date of Service: 02/17/18 Primary Care Provider: Dr. Farias(I am covering for him) Chief Complaint: Chf exacerbation Subjective: No new changes (Patient tolerating diet, no abdominal pain, normal bowel function, no blood in stool) Physical Examination - Vital Signs Temperature: 97.1 F Blood Pressure: 135/67 Pulse: 68 Respirations: 18 Pulse Ox (%): 98 - Physical Exam General: Alert, In no apparent distress, Cooperative Gastrointestinal: Soft and benign, Non-distended, No ascites, No tenderness, No masses, No rebound, No guarding - Studies Medications List Reviewed: Yes Assessment And Plan - Current Problems (Diagnosis) (1) Anemia Onset Date: 09/05/15 Current Visit: No Status: Acute Plan: - continue current plan per Dr. 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 Renal function remained stable. Patient continues with Lasix 3 times a day. Continue with diuresis and monitoring of weight. Nephrology adjusting medication. Patient has agreed to go to a skilled facility to continue his care. Physical therapy to continue to work with patient to ambulate. Anticipate discharge to skilled facility tomorrow. shared services representative consulted. Dr. Farias to assume care tomorrow. Diabetes mellitus type 2: Will continue with sliding scale. Blood sugar stable. Hypertension: Blood pressure medication continues to be adjusted. Patient on carvedilol 25 mg 1 pill twice daily and hydralazine 100 mg 1 pill 3 times a day. Will continue to monitor and address appropriately. Nephrology also adjusting medication. Severe pulmonary hypertension with ejection fraction 53%: Will continue with 1500 cc per day fluid restriction and diuretic therapy. Patient currently on Lasix 80 mg 1 pill 3 times a day. Iron deficiency anemia: Will continue with IV iron and monitor hemoglobin. Hemoglobin remained stable. Hypothyroidism: Will continue with medication Hepatitis-C: Stable. This can be further addressed as an outpatient with GI. GERD: Will continue with Protonix. History of upper extremity DVT July 2017 with prior use of chronic anti coagulation therapy: Eliquis has been discontinued due to anemia. Likely no further need for chronic anti coagulation. History of cocaine use, alcohol use and tobacco abuse. Continue cessation education.
[2018-02-17 09:23] LABS: RBC Red Blood Cell Count 3.25 M/uL (4.33-5.43)
[2018-02-17] MEDS: HYDRALAZINE HCL 25 MG TABLET PO SCH ×3 (09:54→20:29)
[2018-02-17] MEDS: INSULIN -REGULAR HUMAN 50 UNIT/0.5 ML ML SQ SCH ×4 (09:54→20:30)
[2018-02-17] MEDS: FUROSEMIDE 40 MG TABLET PO SCH ×3 (09:54→20:29)
[2018-02-17] MEDS: HYDROCODONE/APAP 7.5/325 MG TAB PO PRN ×3 (09:55→22:39)
[2018-02-17] MEDS: GABAPENTIN 300 MG CAP PO SCH ×3 (09:55→20:29)
[2018-02-17] MEDS: CARVEDILOL 25 MG TAB PO SCH ×2 (09:55→17:02)
[2018-02-17] MEDS: NITROGLYCERIN 0.2 MG/HR (5 MG) PATCH TD SCH (09:56)
[2018-02-17] MEDS: NIFEDIPINE XL 60 MG TABLET PO SCH (09:58)
[2018-02-17 10:03] LABS: Blood Morphology Comment NOTED (NOT SEEN); Platelet Estimate ADEQ
[2018-02-17 10:04] LABS: Anisocytosis 3+; Poikilocytosis 2+; Polychromasia 1+; Target Cells 1+
--- NOTE | 2018-02-17 16:09 | P.PN ---
Subjective Date of Service: 02/17/18 Primary Care Provider: Dr. Farias(I am covering for him) Chief Complaint: Chf exacerbation Subjective: No new changes (Patinet agrees to a snf) Review of Systems 10-point ROS is otherwise unremarkable Physical Examination - Vital Signs Temperature: 98 F Blood Pressure: 157/77 Pulse: 69 Respirations: 18 Pulse Ox (%): 97 - Physical Exam General: Alert, In no apparent distress HEENT: Atraumatic, PERRLA, EOMI Neck: Supple, JVD not distended Respiratory: Clear to auscultation bilaterally, Normal air movement Cardiovascular: Regular rate/rhythm, Normal S1 S2 Gastrointestinal: Normal bowel sounds, No tenderness Musculoskeletal: No tenderness Integumentary: No rashes Neurological: Normal speech, Normal tone, Normal affect Lymphatics: No axilla or inguinal lymphadenopathy - Studies Medications List Reviewed: Yes Assessment & Plan - Problems (Diagnosis) (1) Chest pain Onset Date: 09/05/15 Current Visit: No Status: Acute Plan: Mild elevation in troponins. He was treated medically. Not a good candidate for angiogram as it would destroy his kidneys and he cannot be anticoagulated. Per Dr. Alvarado he can leave the ICU. Qualifiers: Ischemic chest pain type: unstable angina pectoris (2) CHF (congestive heart failure) Onset Date: 07/15/17 Current Visit: No Status: Acute Plan: Improving. Will continue diuresis per Dr. Rose. Qualifiers: Heart failure type: diastolic Heart failure chronicity: acute on chronic Qualified Code(s): I50.33 - Acute on chronic diastolic (congestive) heart failure (3) Anemia Onset Date: 09/05/15 Current Visit: No Status: Acute Plan: He did have a large gastric ulcer. Improved after his 3rd unit of blood Qualifiers: Anemia type: iron deficiency Iron deficiency anemia type: chronic blood loss Qualified Code(s): D50.0 - Iron deficiency anemia secondary to blood loss (chronic) (4) Stage 4 chronic kidney disease Onset Date: 02/12/18 Current Visit: Yes Status: Acute Plan: Have consult Dr. Rose for the creatine and gfr. Will need to be careful as he needs diuresis as well. kidney preservation. (5) Cocaine abuse Onset Date: 04/08/17 Current Visit: No Status: Chronic Plan: Will discuss again with the patient. Will need to give him the outpatient resources. (6) Hyperkalemia Onset Date: 02/12/18 Current Visit: No Status: Resolved Plan: Treatment as per Dr. Rose. Will continue to monitor. 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 Renal function remained stable. Patient continues with Lasix 3 times a day. Continue with diuresis and monitoring of weight. Nephrology adjusting medication. Patient has agreed to go to a skilled facility to continue his care. Physical therapy to continue to work with patient to ambulate. Anticipate discharge to skilled facility tomorrow. volunteer services specialist consulted. Dr. Farias to assume care tomorrow. Diabetes mellitus type 2: Will continue with sliding scale. Blood sugar stable. Hypertension: Blood pressure medication continues to be adjusted. Patient on carvedilol 25 mg 1 pill twice daily and hydralazine 100 mg 1 pill 3 times a day. Will continue to monitor and address appropriately. Nephrology also adjusting medication. Severe pulmonary hypertension with ejection fraction 53%: Will continue with 1500 cc per day fluid restriction and diuretic therapy. Patient currently on Lasix 80 mg 1 pill 3 times a day. Iron deficiency anemia: Will continue with IV iron and monitor hemoglobin. Hemoglobin remained stable. Hypothyroidism: Will continue with medication Hepatitis-C: Stable. This can be further addressed as an outpatient with GI. GERD: Will continue with Protonix. History of upper extremity DVT July 2017 with prior use of chronic anti coagulation therapy: Eliquis has been discontinued due to anemia. Likely no further need for chronic anti coagulation. History of cocaine use, alcohol use and tobacco abuse. Continue cessation education. Critical Care: No Time Spent Managing Pts Care (In Minutes): 25
--- NOTE | 2018-02-17 19:34 | P.PN ---
Subjective Date of Service: 02/19/18 Primary Care Provider: Dr. Farias(I am covering for him) Chief Complaint: Chf exacerbation Subjective: Improving (Edema improved, SOb improved) Review of Systems General: Unremarkable Respiratory: Unremarkable Cardiovascular: Edema (Trace edema ) Gastrointestinal: Unremarkable Physical Examination - Vital Signs Temperature: 98 F Blood Pressure: 157/77 Pulse: 69 Respirations: 18 Pulse Ox (%): 97 - Physical Exam General: Oriented x3 Neck: Supple Respiratory: Other (decreased air entry to the Rt side ) Cardiovascular: Edema (trace ) - Studies Medications List Reviewed: Yes Assessment And Plan - Current Problems (Diagnosis) (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 (2) Acute renal failure Current Visit: No Status: Acute Qualifiers: Acute renal failure type: unspecified Qualified Code(s): N17.9 - Acute kidney failure, unspecified (3) CHF (congestive heart failure) Onset Date: 07/15/17 Current Visit: No Status: Acute Qualifiers: Heart failure type: diastolic Heart failure chronicity: acute on chronic Qualified Code(s): I50.33 - Acute on chronic diastolic (congestive) heart failure - Plan A 62-year-old man, poor compliant, with significant past medical history of chronic kidney disease Likely due to DM and HTN and light chain disease ; has history of chronic kidney disease stage 4 with nephrotic range of proteinuria, 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 Pt presented with SOB and generalized edema Hb 5.3, Cr 4.4 The patient was seen at that time by Hematology in a previous admission and recommended followup as outpatient. Apparently, the patient, did not follow up Cr 2.5 in September and ~3.5 in October Assessment And Plan: STEVEN vs progressive CKD likely due to diabetes, nephropathy, HTN and light chain disease edema responded significantly to diuresis hematology evaluation appreciated US no hydro Cont lasix 80mg tid for now Will consider to change to PO need to repeat CXR I/O Daily WT No need for RECEIVING MANAGER at this time Reduce neurontin to 100mg po tid , dose need to be adjust to RFT Hypertension, Better controlled now Lasix, Coreg, Nifidipine, Hydralazine and Nitro patch Anemia Please get Iron panel and Ferritin HCV Light chain disease Biopy Proven DM Strict BS control Physician Review: Patient Assessed, Agree with Above Assessment and Plan
[2018-02-17] MEDS: ZOLPIDEM TARTRATE 5 MG TABLET PO PRN (20:28)
[2018-02-18] MEDS ORDERED: NA CHLORIDE 0.9% 250 ML IV ONE (02:08)
[2018-02-18 05:41] LABS: Absolute Monocytes 0.5 K/uL (0.1-1.3); Basophils % 0.7 % (0-1.3); Eosinophils % 4.2 % (0-4.4); Hematocrit 25.8 % (39.6-49.0); Lymphocytes % 28.9 % (15.3-44.8); MCH 24.2 pg (27.0-35.0); MCV 77.3 fL (80-100); MPV 10.4 fL (7.6-11.3); Monocytes % 7.3 % (3.3-12.3); RBC Red Blood Cell Count 3.34 M/uL (4.33-5.43)
[2018-02-18] MEDS: LEVOTHYROXINE SOD 0.05 MG TABLET PO SCH (05:42)
[2018-02-18] MEDS: PANTOPRAZOLE 40MG TABLET PO SCH (05:42)
[2018-02-18] MEDS: HYDROCODONE/APAP 7.5/325 MG TAB PO PRN ×3 (05:42→19:10)
[2018-02-18 05:48] LABS: Magnesium 1.9 mg/dL (1.8-2.4); Potassium 4.9 mmol/L (3.5-5.1)
[2018-02-18 06:59] LABS: Anisocytosis 2+; Blood Morphology Comment NOTED (NOT SEEN); Platelet Estimate ADEQ; Poikilocytosis 2+; Urine White Blood Cell Casts OK
[2018-02-18] MEDS: CARVEDILOL 25 MG TAB PO SCH ×2 (08:00→17:00)
--- NOTE | 2018-02-18 08:43 | P.PN ---
Subjective Date of Service: 02/18/18 Primary Care Provider: Dr. Farias(I am covering for him) Chief Complaint: Chf exacerbation Subjective: New changes (Patient had some hypotension last evening.) Review of Systems 10-point ROS is otherwise unremarkable General: Weakness, Malaise Physical Examination - Vital Signs Temperature: 96.9 F Blood Pressure: 104/56 Pulse: 55 Respirations: 16 Pulse Ox (%): 96 - Physical Exam General: Alert, In no apparent distress HEENT: Atraumatic, PERRLA, EOMI Neck: Supple, JVD not distended Respiratory: Clear to auscultation bilaterally, Normal air movement Cardiovascular: Regular rate/rhythm, Normal S1 S2 Gastrointestinal: Normal bowel sounds, No tenderness Musculoskeletal: No tenderness Integumentary: No rashes Neurological: Normal speech, Normal tone, Normal affect Lymphatics: No axilla or inguinal lymphadenopathy - Studies Medications List Reviewed: Yes Assessment & Plan - Problems (Diagnosis) (1) CHF (congestive heart failure) Onset Date: 07/15/17 Current Visit: No Status: Acute Plan: Improving. Will continue diuresis per Dr. Rose. Qualifiers: Heart failure type: diastolic Heart failure chronicity: acute on chronic Qualified Code(s): I50.33 - Acute on chronic diastolic (congestive) heart failure (2) Anemia Onset Date: 09/05/15 Current Visit: No Status: Acute Plan: He did have a large gastric ulcer. Improved after his 3rd unit of blood Qualifiers: Anemia type: iron deficiency Iron deficiency anemia type: chronic blood loss Qualified Code(s): D50.0 - Iron deficiency anemia secondary to blood loss (chronic) (3) Stage 4 chronic kidney disease Onset Date: 02/12/18 Current Visit: Yes Status: Acute Plan: Patient is progressing. He is still making urine. Potassium is acceptable. As he was hypotensive last night will need to start weaning down his bp medications. Have discussed this with Dr. Rose. Plan to stop the hydralazine today. If he is still low we cans stop the clonodine next. (4) Cocaine abuse Onset Date: 04/08/17 Current Visit: No Status: Chronic Plan: Will discuss again with the patient. Will need to give him the outpatient resources. 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 Plan: Plans for out patient work up with a auto body builder apprentice in [facility] (6) Chest pain Onset Date: 09/05/15 Current Visit: No Status: Resolved Plan: Continue medical therapy Qualifiers: Ischemic chest pain type: unstable angina pectoris Discharge Plan: Long Term Plan to discharge in: 48 Hours - Code Status/Comfort Care Code Status Assessed: No Code Status: Full Code Physician Review: Patient Assessed, Agree with Above Assessment and Plan Critical Care: No Time Spent Managing Pts Care (In Minutes): 30
[2018-02-18] MEDS: NITROGLYCERIN 0.2 MG/HR (5 MG) PATCH TD SCH (09:00)
[2018-02-18] MEDS: NIFEDIPINE XL 60 MG TABLET PO SCH (09:00)
[2018-02-18] MEDS: FUROSEMIDE 40 MG TABLET PO SCH ×3 (09:00→21:39)
[2018-02-18] MEDS: SOD FERRIC GLUC COMPLX/SUCROSE 250 MG in NA CHLORIDE 0.9% 250 ML IV SCH (09:27)
[2018-02-18] MEDS: INSULIN -REGULAR HUMAN 50 UNIT/0.5 ML ML SQ SCH ×4 (09:28→21:00)
[2018-02-18] MEDS: GABAPENTIN 300 MG CAP PO SCH ×3 (09:29→21:35)
--- NOTE | 2018-02-18 13:20 | PN ---
Date of Progress Note: 02/18/2018 Subjective: The patient had incident of low blood pressure. Blood pressure down to 88. The patient had no chest pain. No nausea. No vomiting. Marion dizzy. The patient still has good urine output o f 750. Objective: Chest: Clear to auscultation. Heart: S1, S2. Regular. Abdomen: Soft, nontender. Extremities: Trace edema. Laboratory Data: WBC 6.8, H and H 8.1/25.8, platelet 163. Sodium 138, potassium 4.9, bicarb 21, BUN 62, creatinine 5.1, GFR of 14, calcium 7.8, magnesium 1.9. Medications: Current medications the patient on includes: 1.Hydralazine. 2.Nifedipine. 3.IV iron. 4.Carvedilol 25 b.i.d. 5.Nitroglycerin patch. 6.Ambien. 7.Pantoprazole. 8.Lasix 80 t.i.d. 9.The patient apparently received IV fluid yesterday. Assessment And Plan: 1.Acute kidney injury on chronic kidney disease. Progression of the disease stage 4/5, nonoliguric, no hyperkalemia secondary to light chain disease. Diabetes nephropathy, nonoliguric. No hyperkalem ia or acidosis. Normal volume. Currently, I going to continue current medication. We will monitor the patient. I do not see the need to initiate any renal replacement therapy for the time being. 2.Congestive heart failure. Normal volume. Continue current diuresis. The patient has normal volu me currently. 3.Hypertension. Currently low blood pressure. Discontinue hydralazine. Discontinue nitroglycerin. We will follow up. 4.Light chain disease. Need evaluation as outpatient. 5.Iron deficiency anemia with chronic kidney disease and light chain disease. Continue IV iron. Co ntinue Epogen. We will follow up with the primary. 6.Deconditioning. Continue PT/OT. MALINDA/ZULEIMA Voice ID: [id number] Report ID: [id number]
[2018-02-18] MEDS: ZOLPIDEM TARTRATE 5 MG TABLET PO PRN (21:36)
[2018-02-19] MEDS: HYDROCODONE/APAP 7.5/325 MG TAB PO PRN ×4 (01:29→23:07)
[2018-02-19] MEDS: LEVOTHYROXINE SOD 0.05 MG TABLET PO SCH (05:45)
[2018-02-19] MEDS: PANTOPRAZOLE 40MG TABLET PO SCH (05:46)
[2018-02-19] MEDS ORDERED: FUROSEMIDE 40 MG TABLET PO SCH (09:00)
[2018-02-19] MEDS: CARVEDILOL 25 MG TAB PO SCH ×2 (09:53→17:00)
[2018-02-19] MEDS: GABAPENTIN 300 MG CAP PO SCH ×4 (09:53→23:07)
[2018-02-19] MEDS: NIFEDIPINE XL 60 MG TABLET PO SCH (09:54)
[2018-02-19] MEDS: FUROSEMIDE 40 MG TABLET PO SCH (09:54)
[2018-02-19] MEDS: INSULIN -REGULAR HUMAN 50 UNIT/0.5 ML ML SQ SCH ×4 (09:54→21:00)
[2018-02-19 10:23] LABS: Potassium 4.9 mmol/L (3.5-5.1)
--- NOTE | 2018-02-19 12:06 | P.PN ---
Subjective Date of Service: 02/19/18 Primary Care Provider: Dr. Farias(I am covering for him) Chief Complaint: Chf exacerbation Subjective: Worsening (worsening of his creatine) Review of Systems 10-point ROS is otherwise unremarkable Physical Examination - Vital Signs Temperature: 97.5 F Blood Pressure: 152/75 Pulse: 70 Respirations: 16 Pulse Ox (%): 97 - Physical Exam General: Alert, In no apparent distress HEENT: Atraumatic, PERRLA, EOMI Neck: Supple, JVD not distended Respiratory: Clear to auscultation bilaterally, Normal air movement Cardiovascular: Regular rate/rhythm, Normal S1 S2 Gastrointestinal: Normal bowel sounds, No tenderness Musculoskeletal: No tenderness Integumentary: No rashes Neurological: Normal speech, Normal tone, Normal affect Lymphatics: No axilla or inguinal lymphadenopathy - Studies Medications List Reviewed: Yes Assessment & Plan - Problems (Diagnosis) (1) CHF (congestive heart failure) Onset Date: 07/15/17 Current Visit: No Status: Acute Plan: Improving. Will continue diuresis per Dr. Rose. Qualifiers: Heart failure type: diastolic Heart failure chronicity: acute on chronic Qualified Code(s): I50.33 - Acute on chronic diastolic (congestive) heart failure (2) Anemia Onset Date: 09/05/15 Current Visit: No Status: Acute Plan: He did have a large gastric ulcer. Improved after his 3rd unit of blood Qualifiers: Anemia type: iron deficiency Iron deficiency anemia type: chronic blood loss Qualified Code(s): D50.0 - Iron deficiency anemia secondary to blood loss (chronic) (3) Stage 4 chronic kidney disease Onset Date: 02/12/18 Current Visit: Yes Status: Acute Plan: worsening of his gfr. Have discussed with Dr. Rose. The patient has a gfr of 12. May need to start dialysis on the patient (4) Cocaine abuse Onset Date: 04/08/17 Current Visit: No Status: Chronic Plan: Will discuss again with the patient. Will need to give him the outpatient resources. 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 Renal function remained stable. Patient continues with Lasix 3 times a day. Continue with diuresis and monitoring of weight. Nephrology adjusting medication. Patient has agreed to go to a skilled facility to continue his care. Physical therapy to continue to work with patient to ambulate. Anticipate discharge to skilled facility tomorrow. instructional services librarian consulted. Dr. Farias to assume care tomorrow. Diabetes mellitus type 2: Will continue with sliding scale. Blood sugar stable. Hypertension: Blood pressure medication continues to be adjusted. Patient on carvedilol 25 mg 1 pill twice daily and hydralazine 100 mg 1 pill 3 times a day. Will continue to monitor and address appropriately. Nephrology also adjusting medication. Severe pulmonary hypertension with ejection fraction 53%: Will continue with 1500 cc per day fluid restriction and diuretic therapy. Patient currently on Lasix 80 mg 1 pill 3 times a day. Iron deficiency anemia: Will continue with IV iron and monitor hemoglobin. Hemoglobin remained stable. Hypothyroidism: Will continue with medication Hepatitis-C: Stable. This can be further addressed as an outpatient with GI. GERD: Will continue with Protonix. History of upper extremity DVT July 2017 with prior use of chronic anti coagulation therapy: Eliquis has been discontinued due to anemia. Likely no further need for chronic anti coagulation. History of cocaine use, alcohol use and tobacco abuse. Continue cessation education. Critical Care: No Time Spent Managing Pts Care (In Minutes): 35
--- NOTE | 2018-02-20 03:52 | PN ---
Date of Progress Note: 02/19/2018 Subjective: The patient had again another episode of low blood pressure down to the 100. [place] dizzy . Physical Examination: Vital Signs: Blood pressure 120/80. Chest: Clear to auscultation. Heart: S1, S2. Systolic murmur. Abdomen: Soft, nontender. EXTREMITIES: Had trace edema. Laboratory Data: WBC 6.8, H and H 8.1/25.8, platelets of 163. Sodium 139, potassium 4.9, bicarb 22, BUN 72, creatinine 5.8, GFR of 12, calcium of 8. Assessment And Plan: 1.Chronic kidney disease stage IV, progressed to end-stage renal disease secondary to light chain di sease and diabetes, nonoliguric, still on the wet side. I am going to go ahead and initiate dialysis . We will place a PermCath, and we will start the patient on dialysis. 2.Hypertension, controlled, optimal, giving occasional low blood pressure. We will keep holding the hydralazine, and we will follow up. 3.Anasarca secondary to diabetes, nephrotic, and light chain disease. We will continue diuresis. W e will achieve better volume control with ultrafiltration. 4.Diabetes, as by primary. 5.Iron deficiency anemia. Continue IV iron. 6.Hepatitis C, IV drug use. We will follow up with the primary. ROMAN Voice ID: [id number] Report ID: [id number]
[2018-02-20] MEDS: LEVOTHYROXINE SOD 0.05 MG TABLET PO SCH (05:11)
[2018-02-20] MEDS: PANTOPRAZOLE 40MG TABLET PO SCH (05:11)
[2018-02-20] MEDS: INSULIN -REGULAR HUMAN 50 UNIT/0.5 ML ML SQ SCH ×4 (07:30→21:00)
[2018-02-20] MEDS: CARVEDILOL 25 MG TAB PO SCH ×3 (08:00→17:00)
[2018-02-20] MEDS: NIFEDIPINE XL 60 MG TABLET PO SCH (09:00)
[2018-02-20] MEDS: GABAPENTIN 300 MG CAP PO SCH ×3 (09:00→20:59)
[2018-02-20] MEDS: FERROUS SULFATE 325 MG TAB PO SCH (09:00)
[2018-02-20] MEDS: FUROSEMIDE 40 MG TABLET PO SCH (09:00)
[2018-02-20 09:03] LABS: Absolute Lymphocytes (CBC) 1.9 K/uL (0.7-4.9); Absolute Monocytes 0.4 K/uL (0.1-1.3); Absolute Neutrophil 4.5 K/uL (1.8-8.0); Basophils % 0.6 % (0-1.3); Eosinophils % 2.1 % (0-4.4); Hematocrit 25.5 % (39.6-49.0); Lymphocytes % 27.4 % (15.3-44.8); MCH 25.1 pg (27.0-35.0); MCV 79.4 fL (80-100); Monocytes % 5.1 % (3.3-12.3); RBC Red Blood Cell Count 3.21 M/uL (4.33-5.43)
[2018-02-20 09:09] LABS: Protime INR 1.12
[2018-02-20 09:15] LABS: Potassium 5.1 mmol/L (3.5-5.1)
[2018-02-20] MEDS ORDERED: CEFAZOLIN/SWI 1gm 1 GM/10 ML SYR ONE (11:02)
[2018-02-20] MEDS ORDERED: NA CHLORIDE 0.9% 500 ML ONE ×2 (11:02→13:07)
[2018-02-20] MEDS ORDERED: NS 0.9% VIAL 30 ML ONE (12:08)
[2018-02-20] MEDS ORDERED: HEPARIN 5000 UNIT/ML 1 ML VIAL ONE (12:09)
--- NOTE | 2018-02-20 12:22 | P.PN ---
Subjective Date of Service: 02/20/18 Primary Care Provider: Dr. Farias(I am covering for him) Chief Complaint: Chf exacerbation Subjective: New changes (worsen ing gfr) Review of Systems 10-point ROS is otherwise unremarkable General: Malaise Physical Examination - Vital Signs Temperature: 97.3 F Blood Pressure: 125/62 Pulse: 64 Respirations: 18 Pulse Ox (%): 95 - Physical Exam General: Alert, In no apparent distress HEENT: Atraumatic, PERRLA, EOMI Neck: Supple, JVD not distended Respiratory: Clear to auscultation bilaterally, Normal air movement Cardiovascular: Regular rate/rhythm, Normal S1 S2 Gastrointestinal: Normal bowel sounds, No tenderness Musculoskeletal: No tenderness Integumentary: No rashes Neurological: Normal speech, Normal tone, Normal affect Lymphatics: No axilla or inguinal lymphadenopathy - Studies Medications List Reviewed: Yes Assessment & Plan - Problems (Diagnosis) (1) Stage 4 chronic kidney disease Onset Date: 02/12/18 Current Visit: Yes Status: Acute Plan: worsening of his gfr. Have discussed with Dr. Rose. The patient has a gfr of 11. [place] to get access and start dialysis (2) CHF (congestive heart failure) Onset Date: 07/15/17 Current Visit: No Status: Acute Plan: Improving. Will continue diuresis per Dr. Rose. Qualifiers: Heart failure type: diastolic Heart failure chronicity: acute on chronic Qualified Code(s): I50.33 - Acute on chronic diastolic (congestive) heart failure (3) Anemia Onset Date: 09/05/15 Current Visit: No Status: Acute Plan: He did have a large gastric ulcer. Improved after his 3rd unit of blood Qualifiers: Anemia type: iron deficiency Iron deficiency anemia type: chronic blood loss Qualified Code(s): D50.0 - Iron deficiency anemia secondary to blood loss (chronic) (4) Cocaine abuse Onset Date: 04/08/17 Current Visit: No Status: Chronic Plan: Will discuss again with the patient. Will need to give him the outpatient resources. 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 Plan: Plans for out patient work up with a psychology associate in [facility] (6) Chest pain Onset Date: 09/05/15 Current Visit: No Status: Resolved Plan: Continue medical therapy Qualifiers: Ischemic chest pain type: unstable angina pectoris Discharge Plan: [facility] Plan to discharge in: 72 Hours - Code Status/Comfort Care Code Status Assessed: No Code Status: Full Code Physician Review: Patient Assessed, Agree with Above Assessment and Plan Physician Review Additional Text: Impression: Anasarca secondary to acute on chronic renal disease secondary to diabetes and light chain disease Diabetes mellitus type 2 Hypertension Severe pulmonary hypertension with ejection fraction 53% Iron deficiency anemia Hypothyroidism Hepatitis-C GERD History of upper extremity DVT July 2017 with prior use of chronic anti coagulation therapy History of cocaine use, alcohol use, and tobacco abuse Plan: Anasarca secondary to 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 Renal function remained stable. Patient continues with Lasix 3 times a day. Continue with diuresis and monitoring of weight. Nephrology adjusting medication. Patient has agreed to go to a skilled facility to continue his care. Physical therapy to continue to work with patient to ambulate. Anticipate discharge to skilled facility tomorrow. administrative services manager consulted. Dr. Farias to assume care tomorrow. Diabetes mellitus type 2: Will continue with sliding scale. Blood sugar stable. Hypertension: Blood pressure medication continues to be adjusted. Patient on carvedilol 25 mg 1 pill twice daily and hydralazine 100 mg 1 pill 3 times a day. Will continue to monitor and address appropriately. Nephrology also adjusting medication. Severe pulmonary hypertension with ejection fraction 53%: Will continue with 1500 cc per day fluid restriction and diuretic therapy. Patient currently on Lasix 80 mg 1 pill 3 times a day. Iron deficiency anemia: Will continue with IV iron and monitor hemoglobin. Hemoglobin remained stable. Hypothyroidism: Will continue with medication Hepatitis-C: Stable. This can be further addressed as an outpatient with GI. GERD: Will continue with Protonix. History of upper extremity DVT July 2017 with prior use of chronic anti coagulation therapy: Eliquis has been discontinued due to anemia. Likely no further need for chronic anti coagulation. History of cocaine use, alcohol use and tobacco abuse. Continue cessation education. Critical Care: No Time Spent Managing Pts Care (In Minutes): 25
[2018-02-20] MEDS: BUPIVACA 0.5%/EPI 0.0005%/PF 30 ML VIAL ONE ×2 (12:30→12:35)
[2018-02-20] MEDS ORDERED: PROPOFOL 200 MG/20 ML VIAL IV ONE (12:43)
[2018-02-20] MEDS ORDERED: LIDOCAINE 2% MPF 5 ML VIAL ONE (12:43)
[2018-02-20] MEDS ORDERED: FENTANYL CITR 100 MCG/2 ML ONE (12:43)
[2018-02-20] MEDS ORDERED: EPHEDRINE SULF 50 MG/10 ML SYR ONE (12:54)
[2018-02-20] MEDS ORDERED: GLYCOPYRROLATE 0.2 MG/ML SYR ONE ×2 (13:01→13:03)
[2018-02-20] MEDS ORDERED: ATROPINE SULF 1 MG/10 ML SYR IV ONE (13:11)
--- NOTE | 2018-02-20 13:13 | P.OP ---
Preoperative diagnosis: End Stage Renal Disease Postoperative diagnosis: End Stage Renal Disease Primary procedure: Placement of Right Tunnelled Hemodialysis catheter Secondary procedure: ultrasound and flouroscopy guidance and interpretation used Anesthesia: GETA + Local Estimated blood loss: <30cc Specimen: None Findings: Non-pulsatile dark blood returned Complications: None Implants: 19 cm tunnelled hemodialysis catheter placed Transferred to: Recovery Room Condition: Good
[2018-02-20] MEDS ORDERED: EPINEPHrine 1 MG/10 ML SYR ONE (13:14)
[2018-02-20 13:17] LABS: Blood Morphology Comment NOTED (NOT SEEN); Platelet Estimate ADEQ
[2018-02-20 13:18] LABS: Anisocytosis 3+; Macrocytosis 1+; Spherocyte FEW
--- NOTE | 2018-02-20 13:44 | RAD REPORT ---
EXAM DESCRIPTION: RAD - Fluoroscopy <1 Hour - 02/20/2018 1:28 pm FINDINGS: There were 8 portable C-arm views acquired during fluoroscopic assisted placement of a rig ht-sided hemodialysis catheter. Fluoro time was 0.2 minutes. No suspicious or unexpected finding.
--- NOTE | 2018-02-20 13:51 | RAD REPORT ---
EXAM DESCRIPTION: RAD - Chest Single View - 02/20/2018 1:43 pm CLINICAL HISTORY: Right-sided hemodialysis catheter placement COMPARISON: February 14 TECHNIQUE: AP portable chest image was obtained 1329 hours . FINDINGS: Right-sided dialysis catheter has been placed. There is no pneumothorax. Cardiomegaly and vascular engorgement have not changed. Right base pleural and parenchymal opacificat ion also stable. IMPRESSION: No pneumothorax. Cardiomegaly, vascular engorgement and right pleural effusion and atelectasis are stable.
[2018-02-20] MEDS: ZOLPIDEM TARTRATE 5 MG TABLET PO PRN (20:59)
--- NOTE | 2018-02-20 21:36 | P.PN ---
Subjective Date of Service: 02/21/18 Primary Care Provider: Dr. 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 (2) Acute renal failure Current Visit: No Status: Acute Qualifiers: Acute renal failure type: unspecified Qualified Code(s): N17.9 - Acute kidney failure, unspecified (3) CHF (congestive heart failure) Onset Date: 07/15/17 Current Visit: No Status: Acute Qualifiers: Heart failure type: diastolic Heart failure chronicity: acute on chronic Qualified Code(s): I50.33 - Acute on chronic diastolic (congestive) heart failure - Plan A 62-year-old man, poor compliant, with significant past medical history of chronic kidney disease Likely due to DM and HTN and light chain disease ; has history of chronic kidney disease stage 4 with nephrotic range of proteinuria, 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 Pt presented with SOB and generalized edema Hb 5.3, Cr 4.4 The patient was seen at that time by Hematology in a previous admission and recommended followup as outpatient. Apparently, the patient, did not follow up Cr 2.5 in September and ~3.5 in October Assessment And Plan: STEVEN vs progressive CKD likely due to diabetes, nephropathy, HTN and light chain disease edema responded significantly to diuresis, but Cr kept trending up Started on HD 02/20 hematology evaluation appreciated Hypertension, on 02/19 was hypotensive BP meds adjusted and now BP ok Anemia Please get Iron panel and Ferritin HCV Light chain disease Biopsy Proven Oncology fu as an OP DM Strict BS control Physician Review: Patient Assessed, Agree with Above Assessment and Plan
--- NOTE | 2018-02-21 00:26 | OP ---
Date of Procedure: 02/20/2018 Surgeon: Miles Tan MD, Preoperative Diagnosis: End-stage renal disease. Postoperative Diagnosis: End-stage renal disease. Procedure Performed: Placement of right tunneled hemodialysis catheter using ultrasound guidance flu oroscopy and a microintroducer set. Anesthesia: General endotracheal plus local with 0.25% Marcaine. Estimated Blood Loss: Less than 30 cc. Specimen: None. Findings: Dark red nonpulsatile blood was returned. Complications: None. Implants: A 19 cm tunneled hemodialysis catheter was placed. Disposition: Transferred to recovery room in good condition. Procedure In Detail: After informed consent was obtained, patient brought to the operating room, pre pped and draped in usual sterile fashion. After adequate anesthesia was achieved, using ultrasound g uidance, I cannulated the right jugular vein on the first attempt using the microintroducer set. I gogre lockhart placed the microwire into the vein and verified position using ultrasonography. At this point, I then made a small matthieu over the wire and placed introducer sheath and removed the wire at this time and left the introducer sheath in place. I then placed the patient in steeper Trendelenburg. The pa tient was in Trendelenburg throughout the entire procedure, but he was placed in steeper Trendelenbur g at this time. The inner cannula was removed and the standard wire was placed through the introduce r sheath. When the inner cannula was removed, dark red nonpulsatile blood was returned. The standar d wire was placed and the introducer sheath removed. Fluoroscopy was once again used to verify posit ion which was found to be in good anatomic position in the SVC. A tract was then anesthetized 2 fing erbreadths below the right clavicle with 0.25% Marcaine. I then made a sharp incision over the chest wall and used a tunneling device to bring the catheter up through the insertion site without evidenc e of complication. The cuff was found to be in a good mid position. I then proceeded to sequentiall y dilate up the tract using Seldinger over wire technique until the introducer sheath was placed. Th e catheter was then placed into the introducer sheath after being flushed completely with saline and locked after the catheter was placed through the introducer sheath. Once again, we verified position when the introducer sheath was removed and the catheter was found to be in good anatomic position. At this point, I checked the catheter and it flushed quite easily and nonpulsatile dark red blood was returned. I then flushed it completely with saline and packed with super flush heparin 2 cc per por t. I then took the patient out of Trendelenburg into the neutral and slightly head up position and c leansed all wounds and closed them all with 2-0 nylon and secured the catheter to the chest wall usin g the above-stated 2 new nylon without evidence of complication. The patient tolerated the procedure well without evidence of complication. He had some minor bradycardia throughout the procedure, whic h responded to anesthesia measures and medications, and he remained stable throughout otherwise. At the end of the procedure, he was doing well, and the sterile dressing was placed over top. The patie nt tolerated procedure well and was transferred to PACU in good condition. All counts were correct a t the end of the case. A followup stat chest x-ray will be performed in the PACU as a stat order, an d it will be verified afterward prior to using the catheter. AARON/ZULEIMA Voice ID: [id number] Report ID: [id number]
[2018-02-21] MEDS: LEVOTHYROXINE SOD 0.05 MG TABLET PO SCH (05:40)
[2018-02-21] MEDS: PANTOPRAZOLE 40MG TABLET PO SCH (05:40)
[2018-02-21 06:01] LABS: Magnesium 2.2 mg/dL (1.8-2.4); Potassium 4.9 mmol/L (3.5-5.1)
[2018-02-21] MEDS: INSULIN -REGULAR HUMAN 50 UNIT/0.5 ML ML SQ SCH ×4 (07:30→20:26)
[2018-02-21] MEDS: NIFEDIPINE XL 60 MG TABLET PO SCH (08:56)
[2018-02-21] MEDS: FERROUS SULFATE 325 MG TAB PO SCH (08:56)
[2018-02-21] MEDS: FUROSEMIDE 40 MG TABLET PO SCH (08:57)
[2018-02-21] MEDS: GABAPENTIN 300 MG CAP PO SCH ×3 (08:59→20:25)
[2018-02-21] MEDS: CARVEDILOL 25 MG TAB PO SCH ×2 (08:59→17:00)
--- NOTE | 2018-02-21 12:18 | P.PN ---
Subjective Date of Service: 02/21/18 Primary Care Provider: Dr. Farias(I am covering for him) Chief Complaint: Chf exacerbation Subjective: New changes (started dialysis) Review of Systems 10-point ROS is otherwise unremarkable Physical Examination - Vital Signs Temperature: 97.2 F Blood Pressure: 173/93 Pulse: 71 Respirations: 18 Pulse Ox (%): 99 - Physical Exam General: Alert, In no apparent distress HEENT: Atraumatic, PERRLA, EOMI Neck: Supple, JVD not distended Respiratory: Clear to auscultation bilaterally, Normal air movement Cardiovascular: Regular rate/rhythm, Normal S1 S2 Gastrointestinal: Normal bowel sounds, No tenderness Musculoskeletal: No tenderness Integumentary: No rashes Neurological: Normal speech, Normal tone, Normal affect Lymphatics: No axilla or inguinal lymphadenopathy - Studies Medications List Reviewed: Yes Assessment & Plan - Problems (Diagnosis) (1) CHF (congestive heart failure) Onset Date: 07/15/17 Current Visit: No Status: Acute Plan: Improving. Will continue diuresis per Dr. Rose. Qualifiers: Qualified Code(s): I50.33 - Acute on chronic diastolic (congestive) heart failure (2) Anemia Onset Date: 09/05/15 Current Visit: No Status: Acute Plan: He did have a large gastric ulcer. Improved after his 3rd unit of blood Qualifiers: Qualified Code(s): D50.0 - Iron deficiency anemia secondary to blood loss ( chronic) (3) Cocaine abuse Onset Date: 04/08/17 Current Visit: No Status: Chronic Plan: Will discuss again with the patient. Will need to give him the outpatient resources. 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 Plan: Plans for out patient work up with a agricultural specialist in [facility] Discharge Plan: Home Plan to discharge in: Greater than 2 days - Code Status/Comfort Care Code Status Assessed: No Physician Review: Patient Assessed, Agree with Above Assessment and Plan Physician Review Additional Text: Impression: Anasarca secondary to acute on chronic renal disease secondary to diabetes and light chain disease Diabetes mellitus type 2 Hypertension Severe pulmonary hypertension with ejection fraction 53% Iron deficiency anemia Hypothyroidism Hepatitis-C GERD History of upper extremity DVT July 2017 with prior use of chronic anti coagulation therapy History of cocaine use, alcohol use, and tobacco abuse Plan: Anasarca secondary to 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 Renal function remained stable. Patient continues with Lasix 3 times a day. Continue with diuresis and monitoring of weight. Nephrology adjusting medication. Patient has agreed to go to a skilled facility to continue his care. Physical therapy to continue to work with patient to ambulate. Anticipate discharge to skilled facility tomorrow. business services manager consulted. Dr. Farias to assume care tomorrow. Diabetes mellitus type 2: Will continue with sliding scale. Blood sugar stable. Hypertension: Blood pressure medication continues to be adjusted. Patient on carvedilol 25 mg 1 pill twice daily and hydralazine 100 mg 1 pill 3 times a day. Will continue to monitor and address appropriately. Nephrology also adjusting medication. Severe pulmonary hypertension with ejection fraction 53%: Will continue with 1500 cc per day fluid restriction and diuretic therapy. Patient currently on Lasix 80 mg 1 pill 3 times a day. Iron deficiency anemia: Will continue with IV iron and monitor hemoglobin. Hemoglobin remained stable. Hypothyroidism: Will continue with medication Hepatitis-C: Stable. This can be further addressed as an outpatient with GI. GERD: Will continue with Protonix. History of upper extremity DVT July 2017 with prior use of chronic anti coagulation therapy: Eliquis has been discontinued due to anemia. Likely no further need for chronic anti coagulation. History of cocaine use, alcohol use and tobacco abuse. Continue cessation education. 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 has started dialysis. Need his hepatitis panel to come back. He has a history of this. Will await his new placement and insurance status. Physician Review: Patient Assessed, Agree with Above Assessment and Plan Critical Care: No Time Spent Managing Pts care (In Minutes): 30
--- NOTE | 2018-02-21 12:19 | P.PN ---
Subjective Date of Service: 02/21/18 Primary Care Provider: Dr. Farias(I am covering for him) Chief Complaint: Chf exacerbation Pt was admitted for SOB and generalized edema , CKD IV/V now to progressed to ESRD and required HD No nausea, vomiting, diarrhea, constipation, or SOB now tolerated 1st hd yesterday LE edema +1 can be discharged from nephrology point of view Need to cont HD X3/wk need oncology f/u as an op BP elevated again , will monitor for now Physical Examination - Vital Signs Temperature: 97.2 F Blood Pressure: 173/93 Pulse: 71 Respirations: 18 Pulse Ox (%): 99 - Physical Exam General: Alert Cardiovascular: Regular rate/rhythm, Normal S1 S2, Edema Gastrointestinal: Normal bowel sounds - Studies Medications List Reviewed: Yes Assessment And Plan - Current Problems (Diagnosis) (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 (2) Acute renal failure Current Visit: No Status: Acute Qualifiers: Acute renal failure type: unspecified Qualified Code(s): N17.9 - Acute kidney failure, unspecified (3) CHF (congestive heart failure) Onset Date: 07/15/17 Current Visit: No Status: Acute Qualifiers: Heart failure type: diastolic Heart failure chronicity: acute on chronic Qualified Code(s): I50.33 - Acute on chronic diastolic (congestive) heart failure - Plan A 62-year-old man, poor compliant, with significant past medical history of chronic kidney disease Likely due to DM and HTN and light chain disease ; has history of chronic kidney disease stage 4 with nephrotic range of proteinuria, 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 Pt presented with SOB and generalized edema Hb 5.3, Cr 4.4 The patient was seen at that time by Hematology in a previous admission and recommended followup as outpatient. Apparently, the patient, did not follow up Cr 2.5 in September and ~3.5 in October Today tolerated 1st hd yesterday can be discharged from nephrology point of view Need to cont HD X3/wk need oncology f/u as an op Assessment And Plan: STEVEN vs progressive CKD likely due to diabetes, nephropathy, HTN and light chain disease edema responded significantly to diuresis, but Cr kept trending up Started on HD 02/20 hematology evaluation appreciated Hypertension, on 02/19 was hypotensive BP meds adjusted and now BP ok Anemia low iron stores on PO iron HCV Light chain disease Biopsy Proven Oncology fu as an OP DM Strict BS control Physician Review: Patient Assessed, Agree with Above Assessment and Plan Physician Review Additional Text: .
[2018-02-21] MEDS: HYDROCODONE/APAP 7.5/325 MG TAB PO PRN ×2 (14:17→20:25)
[2018-02-21 18:44] LABS: HBsAG Nonreactive (Nonreactive)
[2018-02-21] MEDS: ZOLPIDEM TARTRATE 5 MG TABLET PO PRN (21:04)
[2018-02-22] MEDS: HYDROCODONE/APAP 7.5/325 MG TAB PO PRN ×2 (04:27→17:27)
[2018-02-22] MEDS: PANTOPRAZOLE 40MG TABLET PO SCH (06:19)
[2018-02-22] MEDS: LEVOTHYROXINE SOD 0.05 MG TABLET PO SCH (06:20)
[2018-02-22] MEDS: INSULIN -REGULAR HUMAN 50 UNIT/0.5 ML ML SQ SCH ×4 (07:30→20:45)
[2018-02-22] MEDS: FUROSEMIDE 40 MG TABLET PO SCH (09:18)
[2018-02-22] MEDS: CARVEDILOL 25 MG TAB PO SCH ×2 (09:18→17:27)
[2018-02-22] MEDS: FERROUS SULFATE 325 MG TAB PO SCH (09:18)
[2018-02-22] MEDS: NIFEDIPINE XL 60 MG TABLET PO SCH (09:19)
[2018-02-22] MEDS: GABAPENTIN 300 MG CAP PO SCH ×3 (09:19→20:44)
--- NOTE | 2018-02-22 10:23 | P.PN ---
Subjective Date of Service: 02/22/18 Primary Care Provider: Dr. Farias(I am covering for him) Chief Complaint: Chf exacerbation Subjective: No new changes (awaiting hepatitis panel for placement in snf) Review of Systems 10-point ROS is otherwise unremarkable Musculoskeletal: Leg Pain (chronic) Physical Examination - Vital Signs Temperature: 98.5 F Blood Pressure: 140/80 Pulse: 74 Respirations: 17 Pulse Ox (%): 96 - Physical Exam General: Alert, In no apparent distress HEENT: Atraumatic, PERRLA, EOMI Neck: Supple, JVD not distended Respiratory: Clear to auscultation bilaterally, Normal air movement Cardiovascular: Regular rate/rhythm, Normal S1 S2 Gastrointestinal: Normal bowel sounds, No tenderness Musculoskeletal: No tenderness Integumentary: No rashes Neurological: Normal speech, Normal tone, Normal affect Lymphatics: No axilla or inguinal lymphadenopathy - Studies Medications List Reviewed: Yes Assessment & Plan - Problems (Diagnosis) (1) CHF (congestive heart failure) Onset Date: 07/15/17 Current Visit: No Status: Acute Plan: Improving. Will continue diuresis per Dr. Rose. Qualifiers: Heart failure type: diastolic Heart failure chronicity: acute on chronic Qualified Code(s): I50.33 - Acute on chronic diastolic (congestive) heart failure (2) Anemia Onset Date: 09/05/15 Current Visit: No Status: Acute Plan: He did have a large gastric ulcer. Improved after his 3rd unit of blood Qualifiers: Anemia type: iron deficiency Iron deficiency anemia type: chronic blood loss Qualified Code(s): D50.0 - Iron deficiency anemia secondary to blood loss (chronic) (3) Cocaine abuse Onset Date: 04/08/17 Current Visit: No Status: Chronic Plan: Will discuss again with the patient. Will need to give him the outpatient resources. 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 Critical Care: No Time Spent Managing Pts Care (In Minutes): 20
--- NOTE | 2018-02-22 14:12 | P.PN ---
Subjective Date of Service: 02/22/18 Primary Care Provider: Dr. Farias(I am covering for him) Chief Complaint: Chf exacerbation Pt was admitted for SOB and generalized edema , CKD IV/V now to progressed to ESRD and required HD No nausea, vomiting, diarrhea, constipation, or SOB now No new complaints edema +1 HD MWF for now Discharge plan hematology fu as an OP Physical Examination - Vital Signs Temperature: 98.5 F Blood Pressure: 140/80 Pulse: 74 Respirations: 17 Pulse Ox (%): 96 - Physical Exam General: Alert, Cooperative HEENT: Atraumatic Neck: Supple, JVD not distended Respiratory: Clear to auscultation bilaterally Cardiovascular: No edema, Regular rate/rhythm, Normal S1 S2 - Studies Medications List Reviewed: Yes Assessment And Plan - Current Problems (Diagnosis) (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 (2) Acute renal failure Current Visit: No Status: Acute Qualifiers: Acute renal failure type: unspecified Qualified Code(s): N17.9 - Acute kidney failure, unspecified (3) CHF (congestive heart failure) Onset Date: 07/15/17 Current Visit: No Status: Acute Qualifiers: Heart failure type: diastolic Heart failure chronicity: acute on chronic Qualified Code(s): I50.33 - Acute on chronic diastolic (congestive) heart failure - Plan A 62-year-old man, poor compliant, with significant past medical history of chronic kidney disease Likely due to DM and HTN and light chain disease ; has history of chronic kidney disease stage 4 with nephrotic range of proteinuria, 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 Pt presented with SOB and generalized edema Hb 5.3, Cr 4.4 The patient was seen at that time by Hematology in a previous admission and recommended followup as outpatient. Apparently, the patient, did not follow up Cr 2.5 in September and ~3.5 in October No new complaints HD MWF IV iron Discharge plan Assessment And Plan: STEVEN vs progressive CKD likely due to diabetes, nephropathy, HTN and light chain disease edema responded significantly to diuresis, but Cr kept trending up Started on HD 02/20 hematology evaluation appreciated Hypertension, on 02/19 was hypotensive BP meds adjusted and now BP ok Anemia Low iron stores IV iron HCV Light chain disease Biopsy Proven Oncology fu as an OP DM Strict BS control utox +ve for cocaine Physician Review: Patient Assessed, Agree with Above Assessment and Plan Physician Review Additional Text: .
[2018-02-22] MEDS: SOD FERRIC GLUC COMPLX/SUCROSE 125 MG in NA CHLORIDE 0.9% 100 ML IV SCH (17:27)
[2018-02-22] MEDS: ZOLPIDEM TARTRATE 5 MG TABLET PO PRN (20:44)
[2018-02-23] MEDS: HYDROCODONE/APAP 7.5/325 MG TAB PO PRN ×4 (00:03→20:51)
[2018-02-23] MEDS: PANTOPRAZOLE 40MG TABLET PO SCH (06:13)
[2018-02-23] MEDS: LEVOTHYROXINE SOD 0.05 MG TABLET PO SCH (06:14)
[2018-02-23] MEDS: INSULIN -REGULAR HUMAN 50 UNIT/0.5 ML ML SQ SCH ×4 (07:30→21:00)
[2018-02-23] MEDS: NIFEDIPINE XL 60 MG TABLET PO SCH (09:07)
[2018-02-23] MEDS: FUROSEMIDE 40 MG TABLET PO SCH (09:07)
[2018-02-23] MEDS: CARVEDILOL 25 MG TAB PO SCH ×2 (09:08→16:56)
[2018-02-23] MEDS: GABAPENTIN 300 MG CAP PO SCH ×3 (09:09→20:51)
--- NOTE | 2018-02-23 11:09 | P.PN ---
Subjective Date of Service: 02/23/18 Primary Care Provider: Dr. Farias(I am covering for him) Chief Complaint: Chf exacerbation Subjective: No new changes Review of Systems 10-point ROS is otherwise unremarkable Physical Examination - Vital Signs Temperature: 97.4 F Blood Pressure: 129/70 Pulse: 64 Respirations: 17 Pulse Ox (%): 94 - Physical Exam General: Alert, In no apparent distress HEENT: Atraumatic, PERRLA, EOMI Neck: Supple, JVD not distended Respiratory: Clear to auscultation bilaterally, Normal air movement Cardiovascular: Regular rate/rhythm, Normal S1 S2 Gastrointestinal: Normal bowel sounds, No tenderness Musculoskeletal: No tenderness Integumentary: No rashes Neurological: Normal speech, Normal tone, Normal affect Lymphatics: No axilla or inguinal lymphadenopathy - Studies Medications List Reviewed: Yes Assessment & Plan - Problems (Diagnosis) (1) CHF (congestive heart failure) Onset Date: 07/15/17 Current Visit: No Status: Acute Plan: Improving. Will continue diuresis per Dr. Rose. Qualifiers: Heart failure type: diastolic Heart failure chronicity: acute on chronic Qualified Code(s): I50.33 - Acute on chronic diastolic (congestive) heart failure (2) Anemia Onset Date: 09/05/15 Current Visit: No Status: Acute Plan: He did have a large gastric ulcer. Improved after his 3rd unit of blood Qualifiers: Anemia type: iron deficiency Iron deficiency anemia type: chronic blood loss Qualified Code(s): D50.0 - Iron deficiency anemia secondary to blood loss (chronic) (3) Cocaine abuse Onset Date: 04/08/17 Current Visit: No Status: Chronic Plan: Will discuss again with the patient. Will need to give him the outpatient resources. 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 Critical Care: No Time Spent Managing Pts Care (In Minutes): 25
--- NOTE | 2018-02-23 16:07 | P.PN ---
Subjective Date of Service: 02/23/18 Primary Care Provider: Dr. Farias(I am covering for him) Chief Complaint: Chf exacerbation Pt was admitted for SOB and generalized edema , CKD IV/V now to progressed to ESRD and required HD No nausea, vomiting, diarrhea, constipation, or SOB now No new complaints edema +1 HD MWF for now Discharge plan hematology fu as an OP Physical Examination - Vital Signs Temperature: 97.1 F Blood Pressure: 138/77 Pulse: 63 Respirations: 18 Pulse Ox (%): 94 - Physical Exam General: Alert HEENT: Atraumatic Respiratory: Clear to auscultation bilaterally Cardiovascular: Edema (trace ) - Studies Medications List Reviewed: Yes Assessment And Plan - Current Problems (Diagnosis) (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 (2) Acute renal failure Current Visit: No Status: Acute Qualifiers: Acute renal failure type: unspecified Qualified Code(s): N17.9 - Acute kidney failure, unspecified (3) CHF (congestive heart failure) Onset Date: 07/15/17 Current Visit: No Status: Acute Qualifiers: Heart failure type: diastolic Heart failure chronicity: acute on chronic Qualified Code(s): I50.33 - Acute on chronic diastolic (congestive) heart failure - Plan A 62-year-old man, poor compliant, with significant past medical history of chronic kidney disease Likely due to DM and HTN and light chain disease ; has history of chronic kidney disease stage 4 with nephrotic range of proteinuria, 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 Pt presented with SOB and generalized edema Hb 5.3, Cr 4.4 The patient was seen at that time by Hematology in a previous admission and recommended followup as outpatient. Apparently, the patient, did not follow up Cr 2.5 in September and ~3.5 in October No new complaints HD MWF IV iron [facility] Discharge plan Assessment And Plan: STEVEN vs progressive CKD likely due to diabetes, nephropathy, HTN and light chain disease edema responded significantly to diuresis, but Cr kept trending up Started on HD 02/20 hematology evaluation appreciated Hypertension, on 02/19 was hypotensive BP meds adjusted and now BP ok Anemia Low iron stores IV iron SCARLETT HCV Light chain disease Biopsy [facility] fu as an OP DM Strict BS control utox +ve for cocaine Physician Review: Patient Assessed, Agree with Above Assessment and Plan Physician Review Additional Text: .
[2018-02-23] MEDS: SOD FERRIC GLUC COMPLX/SUCROSE 125 MG in NA CHLORIDE 0.9% 100 ML IV SCH (17:40)
[2018-02-23] MEDS: ZOLPIDEM TARTRATE 5 MG TABLET PO PRN (21:32)
[2018-02-24] MEDS: LEVOTHYROXINE SOD 0.05 MG TABLET PO SCH (06:00)
[2018-02-24] MEDS: PANTOPRAZOLE 40MG TABLET PO SCH (06:00)
[2018-02-24] MEDS: HYDROCODONE/APAP 7.5/325 MG TAB PO PRN ×3 (06:00→18:13)
[2018-02-24] MEDS: INSULIN -REGULAR HUMAN 50 UNIT/0.5 ML ML SQ SCH ×4 (07:30→21:00)
[2018-02-24] MEDS ORDERED: DOCUSATE NA 100 MG CAP PO PRN (08:27)
--- NOTE | 2018-02-24 08:34 | P.DS ---
Admission Date: 02/11/18 Discharge Date: 02/24/18 Primary Care Provider: Dr. Farias(I am covering for him) Disposition: ROUTINE DISCHARGE Discharge Condition: FAIR Reason for Admission: Chf exacerbation - Problems (1) CHF (congestive heart failure) Onset Date: 07/15/17 Current Visit: No Status: Acute Qualifiers: Heart failure type: diastolic Heart failure chronicity: acute on chronic Qualified Code(s): I50.33 - Acute on chronic diastolic (congestive) heart failure (2) Anemia Onset Date: 09/05/15 Current Visit: No Status: Acute Qualifiers: Anemia type: iron deficiency Iron deficiency anemia type: chronic blood loss Qualified Code(s): D50.0 - Iron deficiency anemia secondary to blood loss (chronic) (3) Cocaine abuse Onset Date: 04/08/17 Current Visit: No Status: Chronic 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 Stating he was going to the ER as he felt hopeless. I have had the discussion in the past with him that he has a lot of medical problems and would need a lot of work to get health. He states he has stopped taking his lasix for the past few months. He has had it. He just stopped taking it. Admits to using cocaine a few days ago. He has missed his last few appointments. He has been only eating soup(lots of sodium). He has been getting more and more swollen and final came to the ER. He is has presented in a similar manner in the past. He has a pmh of cocaine abuse, chf, stage 4 ckd, large gastric ulcer and Hep C. He has not followed up with Dr. Aiken for treatment. Denies any blood in his stool. He has been vomiting. However denies any blood or coffee grounds in his vomit. Hospital Course: Patient was admitted for chf exacerbation. He had worsening kidney function and dialysis was started. Plan for outpatient workup with the light chain disease in [facility]. Will discharge him to a SNF facility after we get a current hepatitis panel. Vital Signs/Physical Exam: Temp Pulse Resp BP Pulse Ox 97.0 F 60 16 128/74 96 02/24/18 04:00 02/24/18 04:00 02/24/18 04:00 02/24/18 04:00 02/24/18 04:00 General: Alert, In no apparent distress HEENT: Atraumatic, PERRLA, EOMI Neck: Supple, JVD not distended Respiratory: Clear to auscultation bilaterally, Normal air movement Cardiovascular: Regular rate/rhythm, Normal S1 S2 Gastrointestinal: Normal bowel sounds, No tenderness Musculoskeletal: No tenderness Integumentary: No rashes Neurological: Normal speech, Normal tone, Normal affect Lymphatics: No axilla or inguinal lymphadenopathy Laboratory Data at Discharge: WBC 7.0 K/uL (4.3-10.9) 02/20/18 08:38 Hgb 8.1 g/dL (13.6-17.9) L 02/20/18 08:38 Hct 25.5 % (39.6-49.0) L 02/20/18 08:38 Plt Count 157 K/uL (152-406) 02/20/18 08:38 PT 13.2 SECONDS (9.5-12.5) H 02/20/18 08:38 INR 1.12 02/20/18 08:38 APTT 38.6 SECONDS (24.3-36.9) H 02/20/18 08:38 Sodium 140 mmol/L (136-145) 02/21/18 05:17 Potassium 4.9 mmol/L (3.5-5.1) 02/21/18 05:17 BUN 58 mg/dL (7-18) H D 02/21/18 05:17 Creatinine 5.00 mg/dL (0.55-1.3) H D 02/21/18 05:17 Glucose 120 mg/dL (74-106) H 02/21/18 05:17 Magnesium 2.2 mg/dL (1.8-2.4) 02/21/18 05:17 Total Bilirubin 0.4 mg/dL (0.2-1.0) 02/14/18 05:47 AST 129 U/L (15-37) H 02/14/18 05:47 ALT 101 U/L (12-78) H 02/14/18 05:47 Alkaline Phosphatase 68 U/L (45-117) 02/14/18 05:47 Troponin I 0.20 ng/mL (0.0-0.045) H 02/12/18 10:50 Home Medications: Apixaban [Eliquis] 5 mg PO BID 02/11/18 Gabapentin [Gralise] 300 mg PO TID 02/11/18 Diet: Renal Activity: Ad emilie Time spent managing pt's care (in minutes): 25
[2018-02-24] MEDS: NIFEDIPINE XL 60 MG TABLET PO SCH (09:00)
[2018-02-24] MEDS ORDERED: EPOETIN ALFA 4000 UNIT/1 ML VIAL SQ SCH (09:30)
[2018-02-24] MEDS: FUROSEMIDE 40 MG TABLET PO SCH (09:39)
[2018-02-24] MEDS: CARVEDILOL 25 MG TAB PO SCH ×2 (09:39→18:13)
[2018-02-24] MEDS: GABAPENTIN 300 MG CAP PO SCH ×3 (09:40→20:55)
[2018-02-24] MEDS ORDERED: EPOETIN ALFA 10,000 UNIT/ML VIAL SQ SCH (10:00)
[2018-02-24] MEDS: SOD FERRIC GLUC COMPLX/SUCROSE 125 MG in NA CHLORIDE 0.9% 100 ML IV SCH (18:14)
--- NOTE | 2018-02-24 19:29 | P.PN ---
Subjective Date of Service: 02/24/18 Primary Care Provider: Dr. Farias(I am covering for him) Chief Complaint: Chf exacerbation Pt was admitted for SOB and generalized edema , CKD IV/V now to progressed to ESRD and required HD No nausea, vomiting, diarrhea, constipation, or SOB now No new complaints edema +1 HD MWF for now Discharge plan hematology fu as an OP Physical Examination - Vital Signs Temperature: 97.4 F Blood Pressure: 149/75 Pulse: 71 Respirations: 20 Pulse Ox (%): 96 - Physical Exam General: Alert HEENT: Atraumatic Neck: Supple, Without JVD or thyroid abnormality Respiratory: Clear to auscultation bilaterally Cardiovascular: Edema (trace edema ) Gastrointestinal: Normal bowel sounds - Studies Medications List Reviewed: Yes Assessment And Plan - Current Problems (Diagnosis) (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 (2) Acute renal failure Current Visit: No Status: Acute Qualifiers: Acute renal failure type: unspecified Qualified Code(s): N17.9 - Acute kidney failure, unspecified (3) CHF (congestive heart failure) Onset Date: 07/15/17 Current Visit: No Status: Acute Qualifiers: Heart failure type: diastolic Heart failure chronicity: acute on chronic Qualified Code(s): I50.33 - Acute on chronic diastolic (congestive) heart failure - Plan A 62-year-old man, poor compliant, with significant past medical history of chronic kidney disease Likely due to DM and HTN and light chain disease ; has history of chronic kidney disease stage 4 with nephrotic range of proteinuria, 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 Pt presented with SOB and generalized edema Hb 5.3, Cr 4.4 The patient was seen at that time by Hematology in a previous admission and recommended followup as outpatient. Apparently, the patient, did not follow up Cr 2.5 in September and ~3.5 in October No new complaints HD today possible discharge today vitals stable Assessment And Plan: STEVEN vs progressive CKD likely due to diabetes, nephropathy, HTN and light chain disease edema responded significantly to diuresis, but Cr kept trending up Started on HD 02/20 hematology evaluation appreciated Hypertension, BP meds adjusted and now BP ok Anemia Low iron stores IV iron SCARLETT HCV Light chain disease Biopsy [facility] fu as an OP DM Strict BS control utox +ve for cocaine Physician Review: Patient Assessed, Agree with Above Assessment and Plan Physician Review Additional Text: .
[2018-02-24] MEDS: ZOLPIDEM TARTRATE 5 MG TABLET PO PRN (20:55)
[2018-02-25] MEDS: HYDROCODONE/APAP 7.5/325 MG TAB PO PRN ×2 (03:38→09:44)
[2018-02-25] MEDS: LEVOTHYROXINE SOD 0.05 MG TABLET PO SCH (05:48)
[2018-02-25] MEDS: PANTOPRAZOLE 40MG TABLET PO SCH (05:48)
[2018-02-25] MEDS: INSULIN -REGULAR HUMAN 50 UNIT/0.5 ML ML SQ SCH ×2 (07:30→11:30)
--- NOTE | 2018-02-25 09:17 | P.PN ---
Subjective Date of Service: 02/25/18 Primary Care Provider: Dr. Farias(I am covering for him) Chief Complaint: Chf exacerbation Subjective: No new changes (discharge held yesterday for bed placement) Review of Systems 10-point ROS is otherwise unremarkable Physical Examination - Vital Signs Temperature: 97.3 F Blood Pressure: 175/79 Pulse: 69 Respirations: 16 Pulse Ox (%): 95 - Physical Exam General: Alert, In no apparent distress HEENT: Atraumatic, PERRLA, EOMI Neck: Supple, JVD not distended Respiratory: Clear to auscultation bilaterally, Normal air movement Cardiovascular: Regular rate/rhythm, Normal S1 S2 Gastrointestinal: Normal bowel sounds, No tenderness Musculoskeletal: No tenderness Integumentary: No rashes Neurological: Normal speech, Normal tone, Normal affect Lymphatics: No axilla or inguinal lymphadenopathy - Studies Medications List Reviewed: Yes Assessment & Plan - Problems (Diagnosis) (1) CHF (congestive heart failure) Onset Date: 07/15/17 Current Visit: No Status: Acute Plan: Improving. Will continue diuresis per Dr. Rose. Qualifiers: Heart failure type: diastolic Heart failure chronicity: acute on chronic Qualified Code(s): I50.33 - Acute on chronic diastolic (congestive) heart failure (2) Anemia Onset Date: 09/05/15 Current Visit: No Status: Acute Plan: He did have a large gastric ulcer. Improved after his 3rd unit of blood Qualifiers: Anemia type: iron deficiency Iron deficiency anemia type: chronic blood loss Qualified Code(s): D50.0 - Iron deficiency anemia secondary to blood loss (chronic) (3) Cocaine abuse Onset Date: 04/08/17 Current Visit: No Status: Chronic Plan: Will discuss again with the patient. Will need to give him the outpatient resources. 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 Critical Care: No Time Spent Managing Pts Care (In Minutes): 25
[2018-02-25] MEDS: FUROSEMIDE 40 MG TABLET PO SCH (09:44)
[2018-02-25] MEDS: GABAPENTIN 300 MG CAP PO SCH ×2 (09:44→14:00)
[2018-02-25] MEDS: CARVEDILOL 25 MG TAB PO SCH (09:46)
[2018-02-25] MEDS: NIFEDIPINE XL 60 MG TABLET PO SCH (09:46)
[2018-02-25 14:06] VITALS: BP 158/80; TEMP 97.7
[2018-02-25 14:08] VITALS: O2SAT 95
[2018-02-25 18:00] LABS: Hep C Virus RNA (PCR)log 4.73 log IU/mL
== END 2018-02-25 16:26 | DRG 291 ==
LOC: ER 14:51 → ERHOLD 20:12 → 4TH 20:39 → 3RD-ICU 02-12 12:30 → 2ND 02-13 14:19
PROVIDERS: ADMIT Internal Medicine; ATTEND Internal Medicine
PROC: 30233N1 Transfusion of Nonautologous Red Blood Cells into Peripheral Vein, Percutaneous Approach (ICD-10-PCS; 2018-02-12)
PROC: 30233K1 Transfusion of Nonautologous Frozen Plasma into Peripheral Vein, Percutaneous Approach (ICD-10-PCS; 2018-02-12)
PROC: 02HV33Z Insertion of Infusion Device into Superior Vena Cava, Percutaneous Approach (ICD-10-PCS; 2018-02-20)
PROC: B518YZA Fluoroscopy of Superior Vena Cava using Other Contrast, Guidance (ICD-10-PCS; 2018-02-20)
PROC: 5A1D70Z Performance of Urinary Filtration, Intermittent, Less than 6 Hours Per Day (ICD-10-PCS; 2018-02-20)
PROC: 0JH63XZ Insertion of Tunneled Vascular Access Device into Chest Subcutaneous Tissue and Fascia, Percutaneous Approach (ICD-10-PCS; principal; 2018-02-20 11:15)
PROC: 5A1D70Z Performance of Urinary Filtration, Intermittent, Less than 6 Hours Per Day (ICD-10-PCS; 2018-02-21)
PROC: 5A1D70Z Performance of Urinary Filtration, Intermittent, Less than 6 Hours Per Day (ICD-10-PCS; 2018-02-24)
DX: I13.0 Hypertensive heart and chronic kidney disease with heart failure and stage 1 through stage 4 chronic kidney disease, or unspecified chronic kidney disease (principal); I50.33 Acute on chronic diastolic (congestive) heart failure; N18.4 Chronic kidney disease, stage 4 (severe); N17.9 Acute kidney failure, unspecified; N04.9 Nephrotic syndrome with unspecified morphologic changes; E85.81 Light chain (AL) amyloidosis; E87.5 Hyperkalemia; E11.22 Type 2 diabetes mellitus with diabetic chronic kidney disease; D50.0 Iron deficiency anemia secondary to blood loss (chronic); F14.10 Cocaine abuse, uncomplicated; B19.20 Unspecified viral hepatitis C without hepatic coma; Z86.718 Personal history of other venous thrombosis and embolism; Z79.01 Long term (current) use of anticoagulants; F10.10 Alcohol abuse, uncomplicated; E11.40 Type 2 diabetes mellitus with diabetic neuropathy, unspecified; E11.21 Type 2 diabetes mellitus with diabetic nephropathy; K74.60 Unspecified cirrhosis of liver; E03.9 Hypothyroidism, unspecified; D63.1 Anemia in chronic kidney disease; Z86.73 Personal history of transient ischemic attack (TIA), and cerebral infarction without residual deficits; I48.91 Unspecified atrial fibrillation; F17.210 Nicotine dependence, cigarettes, uncomplicated; I27.20 Pulmonary hypertension, unspecified; E83.42 Hypomagnesemia; I20.0 Unstable angina; R80.8 Other proteinuria; I95.9 Hypotension, unspecified; K25.9 Gastric ulcer, unspecified as acute or chronic, without hemorrhage or perforation
CPT/HCPCS: 36415; 71045; 76000; 76770; 80048; 80053; 80076; 80307; 81003; 81015; 82550; 82728; 82962; 83540; 83605; 83735; 83880; 84439; 84443; 84466; 84484; 85014; 85018; 85025; 85044; 85610; 85730; 86317; 86704; 86706; 86803; 86850; 86900; 86901; 87070; 87205; 87340; 87522; 90935; 93005; 93306; 97163; 99285; C1752; J0171; J0360; J0690; J0885; J1644; J2916; J3010; J3475; P9016; P9047; P9059; Q4081

== ENCOUNTER 2018-03-10 17:56 | Emergency (ER) | payer OTHER ==
[2018-03-10] MEDS ORDERED: NITROGLYCERIN 0.4 MG/TAB SL ONE (19:25)
[2018-03-10 19:34] LABS: Urine Blood 1+ (NEG); Urine Glucose TRACE (NEG); Urine Protein 3+ (NEG)
--- NOTE | 2018-03-10 19:51 | RAD REPORT ---
EXAM DESCRIPTION: RAD - Chest Single View - 03/10/2018 7:06 pm CLINICAL HISTORY: Hypertension, shortness of breath COMPARISON: February 20February 14 TECHNIQUE: AP portable chest image was obtained 1902 hours . FINDINGS: No peripheral consolidation or mass. Interstitial markings are prominent. Cardiomegaly is present. Vasculature is prominent. There is an ill-defined area of increased density in the left uppe r lung field similar to February 20. No measurable pleural effusion and no pneumothorax. No acute bony abnormality seen. No acute aortic findings suspected. IMPRESSION: Mild CHF/volume overload pattern is present. Ill-defined opacification left upper lung field may be part of the edema and failure pattern or a sma ll infiltrate. This needs continued monitoring to assure no underlying mass.
[2018-03-10] MEDS ORDERED: HYDRALAZINE HCL 10 MG TABLET ONE ×2 (20:16→21:58)
[2018-03-10 20:22] LABS: Absolute Lymphocytes (CBC) 0.6 K/uL (0.7-4.9); Absolute Monocytes 0.9 K/uL (0.1-1.3); Absolute Neutrophil 4.8 K/uL (1.8-8.0); Basophils % 0.9 % (0-1.3); Eosinophils % 5.1 % (0-4.4); Lymphocytes % 9.4 % (15.3-44.8); MCH 26.8 pg (27.0-35.0); MPV 9.1 fL (7.6-11.3); Monocytes % 12.9 % (3.3-12.3)
[2018-03-10 20:27] LABS: Hematocrit 25.4 % (39.6-49.0); RBC Red Blood Cell Count 3.07 M/uL (4.33-5.43)
[2018-03-10 20:34] LABS: MCV 82.8 fL (80-100)
[2018-03-10 20:44] LABS: Potassium 3.5 mmol/L (3.5-5.1)
[2018-03-10] MEDS ORDERED: cloNIDine HCl 0.1 MG TAB ONE (21:27)
[2018-03-10] MEDS ORDERED: NITROGLYCERIN 1 GM PKT TD ONE (21:58)
[2018-03-11] MEDS ORDERED: LABETALOL 20 MG/4ML SYRINGE IV ONE (00:19)
[2018-03-11] MEDS ORDERED: Nicardipine/NS 25 MG/250 ML KIT IV ONE (00:54)
--- NOTE | 2018-03-11 05:26 | ER ---
Nurse's Notes [facility] Name: Billy Trejo Age: 62 yrs Sex: Male : 1955 Arrival Date: 03/10/2018 Time: 18:03 Bed 6 Private MD: Diagnosis: Uncontrolled hypertension. Chronic renal disease Presentation: 03/10 18:03 Presenting complaint: EMS states: High blood pressure after dialysis today. 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 Transition of care: patient was not received from another setting of care. Onset of symptoms was March 10, 2018. Risk Assessment: Do you want to hurt yourself or someone else? Patient reports no desire to harm self or others. Initial Sepsis Screen: Does the patient meet any 2 criteria? No. Patient's initial sepsis screen is negative. Does the patient have a suspected source of infection? No. Patient's initial sepsis screen is negative. Care prior to arrival: None. 18:03 Method Of Arrival: EMS: [facility] aj 18:03 Acuity: BRAD 2 aj Triage Assessment: 18:07 General: Appears in no apparent distress. comfortable, Behavior is calm, cooperative, aj appropriate for age. Pain: Denies pain. Neuro: Level of Consciousness is awake, alert, obeys commands, Oriented to person, place, time, situation, Appropriate for age. Respiratory: Airway is patent Respiratory effort is even, unlabored, Respiratory pattern is regular, symmetrical. Derm: Skin is intact, is healthy with good turgor, Skin is pink, warm \\T\\ dry. normal. Historical: - Allergies: 18:07 Corticosteroids (Glucocorticoids); aj - Home Meds: 18:07 amlodipine 10 mg tab 1 tab once daily [Active]; furosemide 40 mg Oral tab 1 tab once aj daily [Active]; gabapentin 300 mg Oral cap 3 times per day [Active]; spironolactone 25 mg Oral tab 1 tab once daily [Active]; levemir 40 unit twice a day for Diabetes [Active]; - PMHx: 18:07 "spot on lung"; Anemia; Arthritis; CHF; CVA; Diabetes - IDDM; GERD; GI Bleed; High aj Cholesterol; Hypertension; Pneumonia; - Immunization history:: Adult Immunizations up to date. - Social history:: Smoking status: Patient/guardian denies using tobacco. - Ebola Screening: : Patient negative for fever greater than or equal to 101.5 degrees Fahrenheit, and additional compatible Ebola Virus Disease symptoms Patient denies exposure to infectious person Patient denies travel to an Ebola-affected area in the 21 days before illness onset No symptoms or risks identified at this time. Screenin:39 Abuse screen: Denies threats or abuse. Denies injuries from another. Nutritional aj screening: No deficits noted. Tuberculosis screening: No symptoms or risk factors identified. Fall Risk None identified. Assessment: 18:39 Reassessment: Patient appears in no apparent distress at this time. No changes from aj previously documented assessment. Patient and/or family updated on plan of care and expected duration. Pain level reassessed. Patient is alert, oriented x 3, equal unlabored respirations, skin warm/dry/pink. 19:40 Reassessment: Patient refused IV, requested lab come to perform a butterfly stick for aj his blood work. 21:46 Reassessment: Patient is sleeping in bed in NAD. Denies chest pain or headache. aj 21:47 Reassessment: Patient appears in no apparent distress at this time. No changes from aj previously documented assessment. Patient and/or family updated on plan of care and expected duration. Pain level reassessed. Patient is alert, oriented x 3, equal unlabored respirations, skin warm/dry/pink. 23:11 Reassessment: Patient and/or family updated on plan of care and expected duration. Pain tl3 level reassessed. Patient is alert, oriented x 3, equal unlabored respirations, skin warm/dry/pink. pt sleeping, Dr Mesa at bedside. 03/11 00:01 Reassessment: Report given to MARY Yeh. tl3 00:01 General: Appears in no apparent distress. comfortable, Behavior is calm, cooperative. rr5 Pain: Complains of pain in headache Pain does not radiate. Neuro: Level of Consciousness is awake, alert, Oriented to person, place, time, situation. Cardiovascular: Denies chest pain, shortness of breath, Capillary refill < 3 seconds. Respiratory: Airway is patent Respiratory effort is even, unlabored, Respiratory pattern is regular, symmetrical. GI: Abdomen is round. : No signs and/or symptoms were reported regarding the genitourinary system. EENT: No signs and/or symptoms were reported regarding the EENT system. Derm: Skin is intact, has lesions on lesions at right neck, dry and intact. Skin is dry, Skin is normal. Musculoskeletal: No signs and/or symptoms reported regarding the musculoskeletal system. 01:04 Reassessment: nicardipine drip stopped for the BP 178/85 by Patient states rr5 symptoms have improved. 01:19 Reassessment: BP 181/85 verbal orders from provider to start Cardene Drip at 2.5 mg / ea hr. monitor bp q 30 min. 02:25 Reassessment: dr. mesa informed for the BP 164/74 and ordered to discontinue for now the rr5 nicardipine drip. 02:47 Reassessment: Patient and/or family updated on plan of care and expected duration. Pain ea level reassessed. Pt resting with eyes closed, respirations even and unlabored, chest expansions even and symmetrical. No s/s of pain or discomfort noted at this time. 03:00 Reassessment: Patient appears in no apparent distress at this time. informed for rr5 the BP195/102 he said to restart and keep nicardipine drip to 2.5mg/hr. 03:35 Reassessment: Patient appears in no apparent distress at this time. Patient and/or rr5 family updated on plan of care and expected duration. Pain level reassessed. asleep in comfortable position. Patient denies pain at this time. 04:32 Reassessment: Patient and/or family updated on plan of care and expected duration. Pain ea level reassessed. Pt resting with eyes closed, respirations even and unlabored, chest expansions even and symmetrical. No s/s of pain or discomfort noted at this time. 05:06 Reassessment: Patient and/or family updated on plan of care and expected duration. Pain ea level reassessed. Patient is alert, oriented x 3, equal unlabored respirations, skin warm/dry/pink. 05:15 Reassessment: Patient appears in no apparent distress at this time. BP 162/[address]ed [address] mesa discontinue Cardene drip and observe the BP if it will maintain patient can be discharge. 05:30 Reassessment: Report called to Lisa YANG at [facility], nurse Lisa villatoro reported she would arrange for transportation back to the shelter. Lisa reported she would call back with ETA. 05:35 Reassessment: reassessment done by dr. mesa patient is for discharged. [facility] 05:38 Reassessment: Gracie YANG called with transportation ETA of 1 hour. ea 06:02 Reassessment: Patient appears in no apparent distress at this time. transporter from [facility] came and take the patient via wheelchair. with stable vital signs. Vital Signs: 03/10 18:07 BP 216 / 100; Pulse 69; Resp 18; Temp 98.4; Pulse Ox 96% on R/A; Weight 88 kg; Height aj 71 in. (180.34 cm); 18:39 BP 216 / 103; Pulse 82; Resp 19; Pulse Ox 99% ; aj 19:55 BP 221 / 106; Pulse 84; Resp 17; Pulse Ox 99% on R/A; aj 21:20 BP 209 / 97; Pulse 87; Resp 17; Pulse Ox 99% on R/A; aj 21:46 BP 206 / 99; Pulse 81; Resp 16; Pulse Ox 99% on R/A; aj 23:11 BP 211 / 95; Pulse 69; Resp 18; tl3 03/11 00:00 BP 213 / 107; Pulse 70; Resp 18; Pulse Ox 97% on R/A; ea 00:32 BP 224 / 105; Pulse 70; Resp 20; Pulse Ox 98% ; ea 01:03 BP 178 / 85; Pulse 70; Resp 20; Pulse Ox 97% ; ea 01:15 BP 181 / 85; rr5 01:30 BP 170 / 109; Pulse 68; Resp 19; Pulse Ox 96% on R/A; ea 02:01 BP 165 / 79; Pulse 68; Resp 18; Pulse Ox 96% on R/A; ea 02:31 BP 164 / 74; rr5 02:46 BP 190 / 86; Pulse 69; Resp 18; Pulse Ox 96% on R/A; ea 03:00 BP 195 / 102; Pulse 68; Resp 18; Pulse Ox 97% on R/A; rr5 03:01 BP 195 / 102; rr5 03:06 BP 196 / 91; Pulse 68; Resp 17; Pulse Ox 97% ; ea 03:30 BP 165 / 77; Pulse 66; Resp 17; Pulse Ox 99% on R/A; rr5 04:33 BP 163 / 76; Pulse 66; Resp 20; Pulse Ox 96% on R/A; ea 05:05 BP 162 / 79; Pulse 67; Resp 16; Pulse Ox 97% on R/A; Pain 0/10; ea 05:16 BP 162 / 79; rr5 06:00 BP 162 / 82; Pulse 69; Resp 17; Pulse Ox 99% on R/A; rr5 03/10 18:07 Body Mass Index 27.06 (88.00 kg, 180.34 cm) aj ED Course: 03/10 18:03 Patient arrived in ED. aj 18:05 Triage completed. aj 18:07 Arm band placed on left wrist. 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 18:08 Bed in low position. Call light in reach. Side rails up X 1. Side rails up X2. Warm jp3 blanket given. Pillow given. Pulse ox on. NIBP on. 18:15 Jan Mesa MD is Attending Physician. pks[place]annah 18:39 Sherine Rahman RN is Primary Nurse. aj 19:05 XRAY CXR (1 view) In Process Unspecified. EDMS 19:57 Notified ED physician of vital signs. aj 20:55 Notified ED physician of vital signs. aj 21:42 Notified ED physician of vital signs. aj 23:11 No provider procedures requiring assistance completed. Patient did not have IV access tl3 during this emergency room visit. 03/11 00:10 Inserted saline lock: 22 gauge in right forearm, using aseptic technique. ,using rr5 aseptic technique. inserted by ko HERNANDEZ. 06:03 IV discontinued, bleeding controlled. rr5 Administered Medications: 03/10 19:19 Drug: Nitroglycerin 0.4 mg Route: Sublingual; aj 20:11 Follow up: Response: No change in condition aj 22:05 Follow up: Response: No change in condition aj 20:10 CANCELLED (dose changed): hydrALAZINE 10 mg IV at bolus once aj 20:11 Drug: HydrALAZINE 20 mg Route: PO; aj 22:05 Follow up: Response: No change in condition aj : Drug: cloNIDine 0.3 mg Route: PO; aj 03/11 01:00 Follow up: Response: No adverse reaction rr5 03/10 21:54 Drug: hydrALAZINE 20 mg Route: PO; aj 03/11 01:03 Follow up: Response: No adverse reaction; Blood pressure is unchanged rr5 03/10 21:54 Drug: Nitro-Bid Ointment 2 % 1 inches Route: Transdermal; Site: anterior chest wall; aj 03/11 00:21 Drug: Labetalol 20 mg Route: IVP; Infused Over: 2 mins; Site: right forearm; rr5 00:44 Follow up: Response: No adverse reaction; Blood pressure is unchanged ea 01:00 Drug: Cardene 5 mg/hr Route: IV; Rate: per protocol; Site: right forearm; rr5 01:15 Follow up: BP 181 / 85; Rate change 2.5 mg/hr rr5 02:31 Follow up: BP 164 / 74; Rate change per protocol; IV Status: Order to discontinue rr5 infusion 03:01 Follow up: BP 195 / 102; Response: Blood pressure is elevated; Rate change per rr5 protocol; IV Status: Infusion continued; IV Intake: 25ml 05:16 Follow up: BP 162 / 79; Response: No adverse reaction; Blood pressure is lowered; Rate rr5 change per protocol; IV Status: Order to discontinue infusion Intake: 03:01 IV: 25ml; Total: 25ml. rr5 Output: 00:01 Urine: 300ml (Voided); Total: 300ml. tl3 Outcome: 05:26 Discharge ordered by . karen 06:03 Discharged to shelter. Report called to Emily HERNANDEZ called to primary nurse. rr5 06:03 Condition: stable 06:03 Discharge instructions given to patient, Instructed on discharge instructions, follow up and referral plans. Demonstrated understanding of instructions, follow-up care, medications. 06:07 Patient left the ED. rr5 Signatures: Dispatcher [employer] Sherine Ware RN RN aj Lam, Pin, MD MD pkl Antunez, Elena, RN RN ea Lowrey, Tammy, RN RN tl3 Reid Martinez Raymond RN RN rr5 Corrections: (The following items were deleted from the chart) 06:08 06:00 BP 172 / 82; Pulse 69bpm; Resp 17bpm; Pulse Ox 99% RA; rr5 rr5
--- NOTE | 2018-03-11 05:27 | EDPHYS ---
Physician Documentation [facility] Name: Billy Trejo Age: 62 yrs Sex: Male : 1955 Arrival Date: 03/10/2018 Time: 18:03 Bed 6 Private MD: ED Physician Jan Schwarz HPI: 03/10 18:47 This 62 yrs old Black Male presents to ER via EMS with complaints of High Blood pkl Pressure. 18:47 Onset: The symptoms/episode began/occurred today. Associated signs and symptoms: The pkl patient has no apparent associated signs or symptoms. Historical: - Allergies: 18:07 Corticosteroids (Glucocorticoids); aj - Home Meds: 18:07 amlodipine 10 mg tab 1 tab once daily [Active]; furosemide 40 mg Oral tab 1 tab once aj daily [Active]; gabapentin 300 mg Oral cap 3 times per day [Active]; spironolactone 25 mg Oral tab 1 tab once daily [Active]; levemir 40 unit twice a day for Diabetes [Active]; - PMHx: 18:07 "spot on lung"; Anemia; Arthritis; CHF; CVA; Diabetes - IDDM; GERD; GI Bleed; High aj Cholesterol; Hypertension; Pneumonia; - Immunization history:: Adult Immunizations up to date. - Social history:: Smoking status: Patient/guardian denies using tobacco. - Ebola Screening: : Patient negative for fever greater than or equal to 101.5 degrees Fahrenheit, and additional compatible Ebola Virus Disease symptoms Patient denies exposure to infectious person Patient denies travel to an Ebola-affected area in the 21 days before illness onset No symptoms or risks identified at this time. ROS: 18:47 Eyes: Negative for injury, pain, redness, and discharge, ENT: Negative for injury, pkl pain, and discharge, Neck: Negative for injury, pain, and swelling, Cardiovascular: Negative for chest pain, palpitations, and edema, Respiratory: Negative for shortness of breath, cough, wheezing, and pleuritic chest pain, Abdomen/GI: Negative for abdominal pain, nausea, vomiting, diarrhea, and constipation, Back: Negative for injury and pain, : Negative for injury, bleeding, discharge, and swelling, MS/Extremity: Negative for injury and deformity, Skin: Negative for injury, rash, and discoloration, Neuro: Negative for headache, weakness, numbness, tingling, and seizure. Exam: 18:47 Head/Face: Normocephalic, atraumatic. Eyes: Pupils equal round and reactive to light, pkl extra-ocular motions intact. Lids and lashes normal. Conjunctiva and sclera are non-icteric and not injected. Cornea within normal limits. Periorbital areas with no swelling, redness, or edema. ENT: Nares patent. No nasal discharge, no septal abnormalities noted. Tympanic membranes are normal and external auditory canals are clear. Oropharynx with no redness, swelling, or masses, exudates, or evidence of obstruction, uvula midline. Mucous membranes moist. Neck: Trachea midline, no thyromegaly or masses palpated, and no cervical lymphadenopathy. Supple, full range of motion without nuchal rigidity, or vertebral point tenderness. No Meningismus. Chest/axilla: Normal chest wall appearance and motion. Nontender with no deformity. No lesions are appreciated. Cardiovascular: Regular rate and rhythm with a normal S1 and S2. No gallops, murmurs, or rubs. Normal PMI, no JVD. No pulse deficits. Respiratory: Lungs have equal breath sounds bilaterally, clear to auscultation and percussion. No rales, rhonchi or wheezes noted. No increased work of breathing, no retractions or nasal flaring. Abdomen/GI: Soft, non-tender, with normal bowel sounds. No distension or tympany. No guarding or rebound. No evidence of tenderness throughout. Back: No spinal tenderness. No costovertebral tenderness. Full range of motion. Skin: Warm, dry with normal turgor. Normal color with no rashes, no lesions, and no evidence of cellulitis. MS/ Extremity: Pulses equal, no cyanosis. Neurovascular intact. Full, normal range of motion. Neuro: Awake and alert, GCS 15, oriented to person, place, time, and situation. Cranial nerves II-XII grossly intact. Motor strength 5/5 in all extremities. Sensory grossly intact. Cerebellar exam normal. Normal gait. Vital Signs: 18:07 BP 216 / 100; Pulse 69; Resp 18; Temp 98.4; Pulse Ox 96% on R/A; Weight 88 kg; Height aj 71 in. (180.34 cm); 18:39 BP 216 / 103; Pulse 82; Resp 19; Pulse Ox 99% ; aj 19:55 BP 221 / 106; Pulse 84; Resp 17; Pulse Ox 99% on R/A; aj 21:20 BP 209 / 97; Pulse 87; Resp 17; Pulse Ox 99% on R/A; aj 21:46 BP 206 / 99; Pulse 81; Resp 16; Pulse Ox 99% on R/A; aj 23:11 BP 211 / 95; Pulse 69; Resp 18; tl3 03/11 00:00 BP 213 / 107; Pulse 70; Resp 18; Pulse Ox 97% on R/A; ea 00:32 BP 224 / 105; Pulse 70; Resp 20; Pulse Ox 98% ; ea 01:03 BP 178 / 85; Pulse 70; Resp 20; Pulse Ox 97% ; ea 01:15 BP 181 / 85; rr5 01:30 BP 170 / 109; Pulse 68; Resp 19; Pulse Ox 96% on R/A; ea 02:01 BP 165 / 79; Pulse 68; Resp 18; Pulse Ox 96% on R/A; ea 02:31 BP 164 / 74; rr5 02:46 BP 190 / 86; Pulse 69; Resp 18; Pulse Ox 96% on R/A; ea 03:00 BP 195 / 102; Pulse 68; Resp 18; Pulse Ox 97% on R/A; rr5 03:01 BP 195 / 102; rr5 03:06 BP 196 / 91; Pulse 68; Resp 17; Pulse Ox 97% ; ea 03:30 BP 165 / 77; Pulse 66; Resp 17; Pulse Ox 99% on R/A; rr5 04:33 BP 163 / 76; Pulse 66; Resp 20; Pulse Ox 96% on R/A; ea 05:05 BP 162 / 79; Pulse 67; Resp 16; Pulse Ox 97% on R/A; Pain 0/10; ea 05:16 BP 162 / 79; rr5 06:00 BP 162 / 82; Pulse 69; Resp 17; Pulse Ox 99% on R/A; rr5 03/10 18:07 Body Mass Index 27.06 (88.00 kg, 180.34 cm) aj MDM: 03/10 18:15 Patient medically screened. pkl 03/11 05:23 Data reviewed: vital signs, nurses notes, lab test result(s), radiologic studies, plain pkl films. 03/10 18:46 Order name: CBC with Diff; Complete Time: 21:02 pkl 10/29 18:46 Order name: Chem 7; Complete Time: 21:02 pk 03/10 18:46 Order name: XRAY CXR (1 view); Complete Time: 20: [facility] 03/10 19:26 Order name: Urine Dipstick--Ancillary (enter results); Complete Time: 20:01 fc Administered Medications: 03/10 19:19 Drug: Nitroglycerin 0.4 mg Route: Sublingual; aj 20:11 Follow up: Response: No change in condition aj 22:05 Follow up: Response: No change in condition aj 20:10 CANCELLED (dose changed): hydrALAZINE 10 mg IV at bolus once aj 20:11 Drug: HydrALAZINE 20 mg Route: PO; aj : Follow up: Response: No change in condition aj :00 Drug: cloNIDine 0.3 mg Route: PO; aj 03/11 01:00 Follow up: Response: No adverse reaction rr5 03/10 21:54 Drug: hydrALAZINE 20 mg Route: PO; aj 03/11 01:03 Follow up: Response: No adverse reaction; Blood pressure is unchanged rr5 03/10 21:54 Drug: Nitro-Bid Ointment 2 % 1 inches Route: Transdermal; Site: anterior chest wall; aj 03/11 00:21 Drug: Labetalol 20 mg Route: IVP; Infused Over: 2 mins; Site: right forearm; rr5 00:44 Follow up: Response: No adverse reaction; Blood pressure is unchanged ea 01:00 Drug: Cardene 5 mg/hr Route: IV; Rate: per protocol; Site: right forearm; rr5 01:15 Follow up: BP 181 / 85; Rate change 2.5 mg/hr rr5 02:31 Follow up: BP 164 / 74; Rate change per protocol; IV Status: Order to discontinue rr5 infusion 03:01 Follow up: BP 195 / 102; Response: Blood pressure is elevated; Rate change per rr5 protocol; IV Status: Infusion continued; IV Intake: 25ml 05:16 Follow up: BP 162 / 79; Response: No adverse reaction; Blood pressure is lowered; Rate rr5 change per protocol; IV Status: Order to discontinue infusion Disposition: 03/11/18 05:26 Discharged to Home. Impression: Uncontrolled hypertension. Chronic renal disease. - Condition is Stable. - Medication Reconciliation Form, Thank You Letter, Antibiotic Education, Prescription Opioid Use form. - Follow up: Private Physician; When: 2 - 3 days; Reason: Re-evaluation by your physician. - Problem is new. - Symptoms have improved. Signatures: Dispatcher [employer] Sherine Ware RN RN aj Lam, Pin, MD MD pkJuan R Benson RN RN rr5 Emily Finnegan RN, ea Corrections: (The following items were deleted from the chart) 03/10 20:10 20:02 hydrALAZINE 10 mg IV at bolus once ordered. pkl niranjan 03/11 06:07 05:26 03/11/2018 05:26 Discharged to Home. Impression: Uncontrolled hypertension. rr5 Chronic renal disease. Condition is Stable. Forms are Medication Reconciliation Form, Thank You Letter, Antibiotic Education, Prescription Opioid Use. Follow up: Private Physician; When: 2 - 3 days; Reason: Re-evaluation by your physician. Problem is new. Symptoms have improved. pkl
[2018-03-11 06:29] VITALS: TEMP 98.4
[2018-03-11 06:52] VITALS: BP 172/82; O2SAT 99
== END 2018-03-11 06:07 | disposition home or self-care (01) ==
LOC: ER 17:56
DX: I12.9 Hypertensive chronic kidney disease with stage 1 through stage 4 chronic kidney disease, or unspecified chronic kidney disease (principal); N18.9 Chronic kidney disease, unspecified
CPT/HCPCS: 36415; 71045; 80048; 81003; 85025; 96365; 96366; 96375; 99284

== ENCOUNTER 2018-03-12 16:49 | Observation (INO) | payer OTHER ==
[2018-03-12 17:36] LABS: Absolute Neutrophil 5.2 K/uL (1.8-8.0); Basophils % 0.9 % (0-1.3); Eosinophils % 5.1 % (0-4.4); Lymphocytes % 12.8 % (15.3-44.8); MCH 25.6 pg (27.0-35.0); MPV 9.6 fL (7.6-11.3); Monocytes % 13.1 % (3.3-12.3); RBC Red Blood Cell Count 3.41 M/uL (4.33-5.43)
[2018-03-12] MEDS ORDERED: HYDRALAZINE HCL 10 MG TABLET ONE ×3 (17:39→21:21)
[2018-03-12] MEDS ORDERED: HYDRALAZINE HCL 20 MG/ML VIAL ONE ×2 (17:39→20:14)
--- NOTE | 2018-03-12 18:07 | RAD REPORT ---
EXAM DESCRIPTION: CT - Head Brain Wo Cont - 03/12/2018 5:56 pm CLINICAL HISTORY: Headache COMPARISON: 2014 TECHNIQUE: Computed axial tomography of the head was obtained. IV contrast was not requested. All CT scans are performed using dose optimization technique as appropriate and may include automated exposure control or mA/KV adjustment according to patient size. FINDINGS: An intracranial bleed is not seen . The ventricles are normal in caliber. No extra-axial fluid collection is noted. Fluid within the sinuses/ mastoids is not seen. IMPRESSION: No acute intracranial abnormality is seen. If patient's symptoms persist MRI of the bra in would be recommended.
--- NOTE | 2018-03-12 18:36 | RAD REPORT ---
EXAM DESCRIPTION: RAD - Hip Right 2 View - 03/12/2018 6:21 pm CLINICAL HISTORY: Right hip pain FINDINGS: No fracture or dislocation is seen. Mild osteoarthritis mainly consisting of subchondral sclerosis and mild joint space narrowing
--- NOTE | 2018-03-12 18:46 | RAD REPORT ---
EXAM DESCRIPTION: USExtrem Venous W Compress Bil03/12/2018 6:34 pm CLINICAL HISTORY: Bilateral leg pain COMPARISON: none FINDINGS: The common femoral, superficial femoral, popliteal and posterior tibial veins bilaterally are compressible and demonstrate augmentation. Doppler demonstrates good flow. IMPRESSION: No evidence of deep venous thrombosis involving either lower extremity.
[2018-03-12] MEDS ORDERED: FENTANYL CITR 100 MCG/2 ML ONE (19:13)
[2018-03-12] MEDS ORDERED: LABETALOL HCL 100 MG/20 ML ONE (19:14)
[2018-03-12 19:18] LABS: Potassium 3.1 mmol/L (3.5-5.1)
[2018-03-12 19:21] LABS: Blood Morphology Comment NOTED (NOT SEEN); Urine White Blood Cell Casts OK
[2018-03-12 19:23] LABS: Anisocytosis 3+; Hypochromasia 2+; Platelet Estimate ADEQ; Target Cells 2+
[2018-03-12] MEDS ORDERED: NITROGLYCERIN 0.4 MG/TAB SL ONE (22:05)
--- NOTE | 2018-03-12 22:16 | ER ---
Nurse's Notes [facility] Name: Billy Trejo Age: 62 yrs Sex: Male : 1955 Arrival Date: 03/12/2018 Time: 16:50 Bed 7 Private MD: Diagnosis: Hypertensive heart and chronic kidney disease-uncontrolled Presentation: 03/12 16:53 Presenting complaint: Patient states: headache, high blood pressure after dialysis iw today, finished dialysis, pt was seen in ER for similar symptoms yesterday. Transition of care: patient was received from another setting of care (ambulatory specialty care practice), Dialysis. Onset of symptoms was March 12, 2018. Risk Assessment: Do you want to hurt yourself or someone else? Patient reports no desire to harm self or others. Initial Sepsis Screen: Does the patient meet any 2 criteria? No. Patient's initial sepsis screen is negative. Does the patient have a suspected source of infection? No. Patient's initial sepsis screen is negative. Care prior to arrival: None. 16:53 Method Of Arrival: EMS: [facility] iw 16:53 Acuity: BRAD 3 iw Triage Assessment: 17:20 Headache History: The patient has had previous headaches and this one is similar to ls4 previous episodes. General: Appears uncomfortable, ill, unkempt, Behavior is cooperative, anxious, fussy, Reports Denies fever, feeling ill, fatigue, chills. Pain: Complains of pain in right leg Pain currently is 6 out of 10 on a pain scale. Pain began years ago. Also complains of inability to perform activities of daily living, labile emotions. Neuro: Level of Consciousness is awake, alert, Oriented to person, place, time, situation, Director Content Marketing are equal bilaterally Moves all extremities. Gait is Speech is normal, Facial symmetry appears normal, Pupils are PERRLA, Reports headache Denies blurred vision dizziness. 17:20 Cardiovascular: Reports None Denies chest pain, diaphoresis, fatigue, lightheadedness, ls4 nausea, palpitations, shortness of breath, syncope, vomiting, Chest pain is denied. Respiratory: Airway is patent Trachea midline Respiratory effort is even, unlabored, Respiratory pattern is regular, Breath sounds are clear bilaterally. Musculoskeletal: No signs and/or symptoms reported regarding the musculoskeletal system. Historical: - Allergies: 17:45 Corticosteroids (Glucocorticoids); ls4 - Home Meds: 17:45 Aldactone 50 mg Oral tab 1 tab once daily [Active]; gabapentin 300 mg oral cap daily ls4 [Active]; bumetanide 2 mg Oral tab 1 tab once daily [Active]; hydralazine 25 mg Oral tab three times a day [Active]; carvedilol 12.5 mg oral tab 1 tab 2 times per day [Active]; pantoprazole 40 mg oral TbEC 1 tab once daily [Active]; - PMHx: 17:45 "spot on lung"; Anemia; Arthritis; CHF; CVA; Diabetes - IDDM; GERD; GI Bleed; High ls4 Cholesterol; Hypertension; Pneumonia; Dialysis; - Immunization history:: Adult Immunizations up to date. - Ebola Screening: : Patient negative for fever greater than or equal to 101.5 degrees Fahrenheit, and additional compatible Ebola Virus Disease symptoms Patient denies exposure to infectious person Patient denies travel to an Ebola-affected area in the 21 days before illness onset No symptoms or risks identified at this time. - Social history:: Smoking status: Patient/guardian denies using tobacco, never smoked, Patient/guardian denies using alcohol, street drugs, IV drugs, caffeine. Screenin:03 Abuse screen: Denies threats or abuse. Denies injuries from another. Nutritional iw screening: No deficits noted. Tuberculosis screening: No symptoms or risk factors identified. Fall Risk None identified. Assessment: 16:54 Pain: Complains of pain in right leg headache Pain currently is 6 out of 10 on a pain ls4 scale. Neuro: Level of Consciousness is awake, alert, obeys commands, Oriented to person, place, time, situation, Director Content Marketing are equal bilaterally Moves all extremities. Speech is normal, Facial symmetry appears normal, Pupils are PERRLA, Reports headache in entire. Respiratory: Airway is patent Respiratory effort is even, unlabored, Respiratory pattern is regular. Musculoskeletal: Circulation, motion, and sensation intact. Capillary refill < 3 seconds, Range of motion: intact in all extremities. 19:21 General: Appears in no apparent distress. uncomfortable, Behavior is cooperative, tl2 appropriate for age, anxious. Pain: Complains of pain in right leg. Neuro: Level of Consciousness is awake, alert, obeys commands, Oriented to person, place, time, situation, Reports headache. Cardiovascular: Denies chest pain. Respiratory: Airway is patent Respiratory effort is even, unlabored, Respiratory pattern is regular, symmetrical. GI: No signs and/or symptoms were reported involving the gastrointestinal system. : No signs and/or symptoms were reported regarding the genitourinary system. Derm: Skin is pink, warm \\T\\ dry. Musculoskeletal: Circulation, motion, and sensation intact. Vital Signs: 16:55 BP 193 / 102; Pulse 67; Resp 18 S; Pulse Ox 100% on R/A; iw 17:30 BP 205 / 93; Pulse 70; Resp 16; Pulse Ox 100% on R/A; Pain 3/10; ls4 17:55 BP 209 / 92; Pulse 70; Resp 16; Pulse Ox 99% on R/A; Pain 3/10; ls4 18:49 BP 217 / 93; Pulse 72; ss 19:21 BP 213 / 96; Pulse 70; Resp 12; Pulse Ox 100% on R/A; tl2 20:34 BP 192 / 93; Pulse 72; Resp 15; Pulse Ox 100% on R/A; ak1 22:28 BP 164 / 85; Pulse 73; Resp 18; Pulse Ox 100% on R/A; tl2 Vitals: 19:21 Cardiac Rhythm Assessment Sinus rhythm. tl2 ED Course: 16:50 Patient arrived in ED. iw 16:54 Triage completed. iw 16:58 Emerson Soares PA is PHCP. cp 16:58 Emerson Marsh MD is Attending Physician. cp 17:10 Arm band placed on. iw 17:10 Patient has correct armband on for positive identification. Allergy band placed. Placed ls4 in gown. Bed in low position. Call light in reach. Side rails up X2. 17:10 nuclear monitoring technician on. Pulse ox on. NIBP on. Lights dimmed. Warm blanket given. Verbal ls4 reassurance given. 17:10 No provider procedures requiring assistance completed. Initial lab(s) drawn, by ky, ls4 sent to lab. Inserted saline lock: 20 gauge in right forearm, using aseptic technique. Blood collected. 17:29 EKG done, by physics technical officer. reviewed by Emerson JACOBO. dt2 17:35 Note: patient unstable at this time. sj 17:37 Osiris Johnson, MARY is Primary Nurse. ls4 17:56 CT Head Brain wo Cont In Process Unspecified. EDMS 18:20 X-ray completed. Patient tolerated procedure poorly. Patient taken to ultrasound. via ls3 stretcher. 18:21 XRAY Hip RIGHT 2 view In Process Unspecified. EDMS 18:33 Ultrasound completed. Patient tolerated well. Patient moved back from ultrasound. aa4 18:35 US Extremity Venous W Compression Silas In Process Unspecified. EDMS 22:13 Gerardo Farias MD is Hospitalizing Provider. cp 23:02 Patient admitted, IV remains in place. ak1 Administered Medications: 17:22 Drug: HydrALAZINE 25 mg Route: PO; ss 17:46 Follow up: Response: No adverse reaction; No change in condition ss 18:50 Follow up: Response: No adverse reaction; No change in condition ss 17:38 Drug: hydrALAZINE 10 mg Route: IV; Rate: calculated rate; Site: right antecubital; ls4 18:49 Follow up: BP 217 / 93; Pulse 72 bpm; Response: No adverse reaction; No change in ss condition; Other; Page Pa notified. 23:08 Follow up: IV Status: Completed infusion ak1 19:12 Drug: fentaNYL (PF) 25 mcg Route: IVP; Site: right forearm; ak1 20:11 Follow up: Response: No adverse reaction ak1 19:13 Drug: Trandate 10 mg Route: IVP; Site: right forearm; ak1 20:11 Follow up: Response: No adverse reaction ak1 20:10 Drug: hydrALAZINE 10 mg Route: IV; Rate: calculated rate; Site: right forearm; ak1 23:07 Follow up: IV Status: Completed infusion ak1 20:15 CANCELLED (Physician Discretion): hydrALAZINE 30 mg PO once cp 21:36 Drug: HydrALAZINE 25 mg Route: PO; tl2 23:07 Follow up: Response: No adverse reaction ak1 21:36 Drug: fentaNYL (PF) 25 mcg Route: IVP; Site: right wrist; tl2 23:07 Follow up: Response: No adverse reaction ak1 21:37 Drug: HydrALAZINE 25 mg Route: PO; tl2 23:08 Follow up: Response: No adverse reaction ak1 22:03 Drug: Nitroglycerin 0.4 mg Route: Sublingual; ak1 23:07 Follow up: Response: No adverse reaction ak1 Intake: Outcome: 22:15 Decision to Hospitalize by Provider. cp 23:01 Condition: stable ak1 23:01 Instructed on the need for admit. 23:27 Admitted to Med/surg accompanied by tech, via stretcher, room 209, with chart, Report ak1 called to cortez 23:55 Patient left the ED. ak1 Signatures: Dispatcher [employer] Zoë Ayers Irene, RN RN Sherine Hernandez aa4 Gloria Villar RN RN Lori Zayas RN RN ak1 Emerson Soares PA PA cp Knox, Taylor RN RN tl2 Lisa Lara dt2 Columba Gallagher ls3 Osiris Johnson RN RN ls4 Corrections: (The following items were deleted from the chart) 17:45 16:55 Allergies: Corticosteroids (Glucocorticoids); iw ls4 17:45 16:55 PMHx: "spot on lung"; iw ls4 17:45 16:55 PMHx: Anemia; iw ls4 17:45 16:55 PMHx: Arthritis; iw ls4 17:45 16:55 PMHx: CHF; iw ls4 17:45 16:55 PMHx: CVA; iw ls4 17:45 16:55 PMHx: Diabetes - IDDM; iw ls4 17:45 16:55 PMHx: GERD; iw ls4 17:45 16:55 PMHx: GI Bleed; iw ls4 17:45 16:55 PMHx: High Cholesterol; iw ls4 17:45 16:55 PMHx: Hypertension; iw ls4 17:45 16:55 PMHx: Pneumonia; iw ls4 17:45 16:55 PMHx: Dialysis; iw ls4 17:45 17:06 Home Meds: Aldactone 50 mg Oral tab 1 tab once daily; iw ls4 17:45 17:06 Home Meds: gabapentin 300 mg oral cap daily; iw ls4 17:45 17:06 Home Meds: bumetanide 2 mg Oral tab 1 tab once daily; iw ls4 17:45 17:06 Home Meds: hydralazine 25 mg Oral tab three times a day; iw ls4 17:45 17:06 Home Meds: carvedilol 12.5 mg oral tab 1 tab 2 times per day; iw ls4 17:45 17:06 Home Meds: pantoprazole 40 mg oral TbEC 1 tab once daily; ls4 18:52 18:49 HydrALAZINE 25 mg PO ss ss
--- NOTE | 2018-03-12 22:16 | EDPHYS ---
Physician Documentation [facility] Name: Billy Trejo Age: 62 yrs Sex: Male : 1955 Arrival Date: 03/12/2018 Time: 16:50 Bed 7 Private MD: ED Physician Emerson Marsh HPI: 03/12 17:30 This 62 yrs old Black Male presents to ER via EMS with complaints of High Blood cp Pressure, Headache. 17:30 The patient has elevated blood pressure and discovered this at a physician's office, cp and sent to the emergency department for evaluation. 17:30 Onset: The symptoms/episode began/occurred at an unknown time. Associated signs and cp symptoms: Pertinent positives: headache, Pertinent negatives: chest pain, vomiting, weakness. Severity of symptoms: in the emergency department the blood pressure is unchanged. The patient has experienced similar episodes in the past, multiple times. The patient has been recently seen at the [facility] Emergency Department, yesterday, for similar complaints. Historical: - Allergies: 17:45 Corticosteroids (Glucocorticoids); ls4 - Home Meds: 17:45 Aldactone 50 mg Oral tab 1 tab once daily [Active]; gabapentin 300 mg oral cap daily ls4 [Active]; bumetanide 2 mg Oral tab 1 tab once daily [Active]; hydralazine 25 mg Oral tab three times a day [Active]; carvedilol 12.5 mg oral tab 1 tab 2 times per day [Active]; pantoprazole 40 mg oral TbEC 1 tab once daily [Active]; - PMHx: 17:45 "spot on lung"; Anemia; Arthritis; CHF; CVA; Diabetes - IDDM; GERD; GI Bleed; High ls4 Cholesterol; Hypertension; Pneumonia; Dialysis; - Immunization history:: Adult Immunizations up to date. - Ebola Screening: : Patient negative for fever greater than or equal to 101.5 degrees Fahrenheit, and additional compatible Ebola Virus Disease symptoms Patient denies exposure to infectious person Patient denies travel to an Ebola-affected area in the 21 days before illness onset No symptoms or risks identified at this time. - Social history:: Smoking status: Patient/guardian denies using tobacco, never smoked, Patient/guardian denies using alcohol, street drugs, IV drugs, caffeine. ROS: 17:33 Constitutional: Negative for body aches, chills, fever, poor PO intake. cp 17:33 Eyes: Negative for injury, pain, redness, and discharge. cp 17:33 ENT: Negative for drainage from ear(s), ear pain, sore throat, difficulty swallowing, difficulty handling secretions. 17:33 Cardiovascular: Positive for edema, Negative for chest pain, palpitations. 17:33 Respiratory: Negative for cough, shortness of breath, wheezing. 17:33 Abdomen/GI: Negative for abdominal pain, nausea, vomiting, and diarrhea, constipation, black/tarry stool, rectal bleeding. 17:33 Back: Negative for pain at rest, pain with movement. 17:33 Skin: Negative for cellulitis, rash. 17:33 Neuro: Positive for headache, Negative for altered mental status, numbness, seizure activity, syncope, near syncope, weakness. 17:33 All other systems are negative. Exam: 17:25 ECG was reviewed by the Attending Physician. cp 17:38 Constitutional: The patient appears in no acute distress, alert, awake, cp non-diaphoretic, non-toxic, well developed, well nourished, uncomfortable. 17:38 Head/Face: Normocephalic, atraumatic. cp 17:38 Eyes: Periorbital structures: appear normal, Pupils: equal, round, and reactive to light and accomodation, Extraocular movements: intact throughout, Conjunctiva: normal, no exudate, no injection, Sclera: no appreciated abnormality, Lids and lashes: appear normal, bilaterally. 17:38 ENT: External ear(s): are unremarkable, Ear canal(s): are normal, clear, TM's: dullness, bilaterally, Nose: is normal, Mouth: Lips: moist, Oral mucosa: pink and intact, moist, Posterior pharynx: is normal, airway is patent, no erythema, no exudate, Voice: is normal. 17:38 Neck: ROM/movement: is normal, is supple, without pain, no range of motions limitations, no meningismus, no nuchal rigidity. 17:38 Chest/axilla: Inspection: normal, Palpation: is normal, no crepitus, no tenderness. 17:38 Cardiovascular: Rate: normal, Rhythm: regular, Edema: ankle edema, that is mild, JVD: is not appreciated. 17:38 Respiratory: the patient does not display signs of respiratory distress, Respirations: normal, no use of accessory muscles, no retractions, no splinting, no tachypnea, labored breathing, is not present, Breath sounds: decreased breath sounds, that are mild, throughout, stridor, is not appreciated. 17:38 Abdomen/GI: Inspection: abdomen appears normal, Palpation: abdomen is soft and non-tender, in all quadrants, rebound tenderness, is not appreciated, voluntary guarding, is not appreciated, involuntary guarding, is not appreciated. 17:38 Back: pain, is absent, ROM is normal. 17:38 Skin: cellulitis, is not appreciated, no rash present. 17:38 Neuro: Orientation: to person, place \\T\\ time. Mentation: is normal, Cerebellar function: is grossly normal, Motor: moves all fours, strength is normal, Sensation: is normal. Vital Signs: 16:55 BP 193 / 102; Pulse 67; Resp 18 S; Pulse Ox 100% on R/A; iw 17:30 BP 205 / 93; Pulse 70; Resp 16; Pulse Ox 100% on R/A; Pain 3/10; ls4 17:55 BP 209 / 92; Pulse 70; Resp 16; Pulse Ox 99% on R/A; Pain 3/10; ls4 18:49 BP 217 / 93; Pulse 72; ss 19:21 BP 213 / 96; Pulse 70; Resp 12; Pulse Ox 100% on R/A; tl2 20:34 BP 192 / 93; Pulse 72; Resp 15; Pulse Ox 100% on R/A; ak1 22:28 BP 164 / 85; Pulse 73; Resp 18; Pulse Ox 100% on R/A; tl2 MDM: 17:04 Patient medically screened. cp 22:05 Data reviewed: vital signs, nurses notes, lab test result(s), EKG, radiologic studies, cp CT scan, and as a result, I will admit patient. 22:05 ED course: VS noted. Blood pressure remains elevated during course of treatment. Will cp admit for continued observation and treatment of hypertension. 22:10 Physician consultation: Gerardo Farias MD was called at 22:05, was contacted at 22:05, regarding admission, to the telemetry unit. patient's condition. 03/12 17:19 Order name: CBC with Diff; Complete Time: 19:34 cp 03/12 18:28 Interpretation: Normal except: RBC 3.41; HGB 8.7; HCT 28.0; MCH 25.6; MCHC 31.2; PLT cp 181; RDW 27.3; LYM% 12.8; MN% 13.1; EOSINOPHIL % 5.1. 03/12 17:19 Order name: BMP; Complete Time: 19:34 cp 03/12 20:15 Interpretation: Normal except: K 3.1; GLUC 150; CRE 1.90; GFR 44; CA 8.4. cp 03/12 17:19 Order name: Magnesium; Complete Time: 19:35 cp 03/12 18:13 Order name: CBC Smear Scan; Complete Time: 19:35 EDMS 03/12 22:05 Order name: UDS cp 03/12 22:28 Order name: Urine Dipstick--Ancillary (enter results) em 03/12 17:19 Order name: CT Head Brain wo Cont; Complete Time: 18:28 cp 03/12 18:29 Interpretation: Report reviewed. cp 03/12 17:19 Order name: US Extremity Venous W Compression Silas; Complete Time: 19:11 cp 03/12 17:19 Order name: XRAY Hip RIGHT 2 view; Complete Time: 18:46 cp 03/12 18:46 Interpretation: Report reviewed. 03/12 22:33 Order name: Basic Metabolic Panel EDMS 03/12 22:33 Order name: Basic Metabolic Panel EDMS 03/12 22:33 Order name: CBC with Automated Diff EDMS 03/12 22:33 Order name: CBC with Automated Diff EDMS 03/12 17:22 Order name: EKG; Complete Time: 17:23 cp 03/12 17:22 Order name: EKG - Nurse/Tech; Complete Time: 17:27 cp EC:25 Rate is 69 beats/min. Rhythm is regular. MN interval is normal. QRS interval is normal. cp QT interval is prolonged at 444 msec. T waves are Inverted in lead aVL. Interpreted by me. Reviewed by me. Administered Medications: 17:22 Drug: HydrALAZINE 25 mg Route: PO; ss 17:46 Follow up: Response: No adverse reaction; No change in condition ss 18:50 Follow up: Response: No adverse reaction; No change in condition ss 17:38 Drug: hydrALAZINE 10 mg Route: IV; Rate: calculated rate; Site: right antecubital; ls4 18:49 Follow up: BP 217 / 93; Pulse 72 bpm; Response: No adverse reaction; No change in ss condition; Other; Fany Friend notified. 23:08 Follow up: IV Status: Completed infusion ak1 19:12 Drug: fentaNYL (PF) 25 mcg Route: IVP; Site: right forearm; ak1 20:11 Follow up: Response: No adverse reaction ak1 19:13 Drug: Trandate 10 mg Route: IVP; Site: right forearm; ak1 20:11 Follow up: Response: No adverse reaction ak1 20:10 Drug: hydrALAZINE 10 mg Route: IV; Rate: calculated rate; Site: right forearm; ak1 23:07 Follow up: IV Status: Completed infusion ak1 20:15 CANCELLED (Physician Discretion): hydrALAZINE 30 mg PO once cp 21:36 Drug: HydrALAZINE 25 mg Route: PO; tl2 23:07 Follow up: Response: No adverse reaction ak1 21:36 Drug: fentaNYL (PF) 25 mcg Route: IVP; Site: right wrist; tl2 23:07 Follow up: Response: No adverse reaction ak1 21:37 Drug: HydrALAZINE 25 mg Route: PO; tl2 23:08 Follow up: Response: No adverse reaction ak1 22:03 Drug: Nitroglycerin 0.4 mg Route: Sublingual; ak1 23:07 Follow up: Response: No adverse reaction ak1 Disposition: 03/13 06:44 Co-signature as Attending Physician, Emerson Marsh MD I agree with the assessment and alla plan of care. Disposition: 03/12/18 22:15 Hospitalization ordered by Gerardo Farias for Observation. Preliminary diagnosis is Hypertensive heart and chronic kidney disease - uncontrolled. - Bed requested for Telemetry/MedSurg (observation). - Status is Observation. ak1 - Condition is Stable. - Problem is an ongoing problem. - Symptoms have improved. UTI on Admission? No Signatures: Dispatcher [employer] Payal Gallegos RN RN kl Anderson, Corey, MD MD cha Williams, Irene, RN RN Gloria Villar RN RN Lori Zayas RN RN ak1 Emerson Soares PA PA cp Knox, Taylor, RN RN 2 Osiris Johnson RN RN ls4 Corrections: (The following items were deleted from the chart) 03/12 17:45 16:55 Allergies: Corticosteroids (Glucocorticoids); iw ls4 17:45 16:55 PMHx: "spot on lung"; iw ls4 17:45 16:55 PMHx: Anemia; iw ls4 17:45 16:55 PMHx: Arthritis; iw ls4 17:45 16:55 PMHx: CHF; iw ls4 17:45 16:55 PMHx: CVA; iw ls4 17:45 16:55 PMHx: Diabetes - IDDM; iw ls4 17:45 16:55 PMHx: GERD; iw ls4 17:45 16:55 PMHx: GI Bleed; iw ls4 17:45 16:55 PMHx: High Cholesterol; iw ls4 17:45 16:55 PMHx: Hypertension; iw ls4 17:45 16:55 PMHx: Pneumonia; iw ls4 17:45 16:55 PMHx: Dialysis; ls4 17:45 17:06 Home Meds: Aldactone 50 mg Oral tab 1 tab once daily; iw ls4 17:45 17:06 Home Meds: gabapentin 300 mg oral cap daily; iw ls4 17:45 17:06 Home Meds: bumetanide 2 mg Oral tab 1 tab once daily; iw ls4 17:45 17:06 Home Meds: hydralazine 25 mg Oral tab three times a day; iw ls4 17:45 17:06 Home Meds: carvedilol 12.5 mg oral tab 1 tab 2 times per day; iw ls4 17:45 17:06 Home Meds: pantoprazole 40 mg oral TbEC 1 tab once daily; iw ls4 20:15 19:35 Normal except: K 3.1; GLUC 150; CRE 1.90; GFR 44. cp cp 20:15 20:14 hydrALAZINE 30 mg PO once ordered. cp cp 22:16 22:15 Hospitalization Ordered by Gerrado Farias MD for Observation. Preliminary diagnosis cp is Hypertensive heart and chronic kidney disease. Bed requested for Telemetry/MedSurg (observation). Status is Observation. Condition is Stable. Problem is an ongoing problem. Symptoms have improved. UTI on Admission? No. cp 23:01 22:16 03/12/2018 22:15 Hospitalization Ordered by Gerardo Farias MD for Observation. kl Preliminary diagnosis is Hypertensive heart and chronic kidney disease - uncontrolled. Bed requested for Telemetry/MedSurg (observation). Status is Observation. Condition is Stable. Problem is an ongoing problem. Symptoms have improved. UTI on Admission? No. cp 23:55 23:01 03/12/2018 22:15 Hospitalization Ordered by Gerardo Farias MD for Observation. ak1 Preliminary diagnosis is Hypertensive heart and chronic kidney disease - uncontrolled. Bed requested for Telemetry/MedSurg (observation). Status is Observation. Condition is Stable. Problem is an ongoing problem. Symptoms have improved. UTI on Admission? No. kl
[2018-03-12 22:30] LABS: Barbiturates NEGATIVE (NEGATIVE); Benzodiazepines NEGATIVE (NEGATIVE); Cocaine NEGATIVE (NEGATIVE); METHAMPHETAM NEGATIVE (NEGATIVE); Methadone NEGATIVE (NEGATIVE); Opiates NEGATIVE (NEGATIVE); Phencyclidine NEGATIVE (NEGATIVE); THC Cannibis NEGATIVE (NEGATIVE)
[2018-03-12 23:29] LABS: Urine Blood 1+ (NEG); Urine Glucose NEGATIVE (NEG); Urine Protein 3+ (NEG)
[2018-03-13] MEDS: HYDROCODONE/APAP 5/325 MG TAB PO PRN ×2 (00:44→05:48)
[2018-03-13] MEDS: HYDRALAZINE HCL 20 MG/ML VIAL IV PRN ×2 (00:45→19:31)
[2018-03-13 05:37] LABS: Absolute Lymphocytes (CBC) 0.9 K/uL (0.7-4.9); Absolute Neutrophil 4.3 K/uL (1.8-8.0); Basophils % 1.4 % (0-1.3); Eosinophils % 6.5 % (0-4.4); Hematocrit 27.2 % (39.6-49.0); Lymphocytes % 13.8 % (15.3-44.8); MCH 26.3 pg (27.0-35.0); MCV 81.4 fL (80-100); Monocytes % 14.3 % (3.3-12.3); RBC Red Blood Cell Count 3.34 M/uL (4.33-5.43)
[2018-03-13] MEDS: CARVEDILOL 12.5 MG TAB PO SCH ×2 (05:49→17:51)
[2018-03-13 06:00] LABS: Potassium 3.2 mmol/L (3.5-5.1)
[2018-03-13 06:06] LABS: Urine Appearance CLOUDY; Urine Blood 2+ (NEG); Urine Color YELLOW; Urine Glucose TRACE (NEG); Urine Protein 3+ (NEG); Urine Specific Gravity 1.015 (1.005-1.030)
[2018-03-13 06:13] LABS: Urine Bilirubin NEGATIVE (NEG); Urine Microscopic Reflex ORDER UMIC
--- NOTE | 2018-03-13 06:38 | EKG ---
Test Date: 2018-03-12 Test Time: 17:19:33 Knot Bumper: JOCELYN MEASUREMENT RESULTS: Intervals: Rate: 69 [place]: 190 QRSD: 88 QT: 444 QTc: 475 [place]: P: 79 [place]: 190 QRS: -36 T: 79 INTERPRETIVE STATEMENTS: Normal sinus rhythm Left axis deviation Minimal voltage criteria for LVH, may be normal variant Prolonged QT Abnormal ECG Compared to ECG 02/12/2018 10:44:35 Left-axis deviation now present Left ventricular hypertrophy now present Prolonged QT interval now present Myocardial infarct finding no longer present Electronically Signed On 03-13-18 06:37:47 CDT by Justo Fofana
[2018-03-13 06:45] LABS: Urine Amorphous Sediment 2+ /HPF (NONE SEEN); Urine Bacteria <20 /HPF (NONE SEEN); Urine Culture Reflex Order REFLEXED; Urine RBC 20-50 /HPF (NONE SEEN)
[2018-03-13] MEDS: SPIRONOLACTONE 25 MG TABLET PO SCH (08:31)
[2018-03-13] MEDS: HYDRALAZINE HCL 25 MG TABLET PO SCH ×4 (08:32→21:17)
[2018-03-13] MEDS ORDERED: HOME MED 1 EA UNK (Spironolactone [Aldactone] 50 MG) PO SCH (09:00)
[2018-03-13] MEDS ORDERED: CARVEDILOL 12.5 MG TAB PO SCH (09:00)
[2018-03-13] MEDS ORDERED: CLONIDINE 0.2 MG/PATCH TD SCH (09:00)
[2018-03-13] MEDS ORDERED: HYDRALAZINE HCL 25 MG TABLET PO SCH (09:00)
[2018-03-13] MEDS: BUMETANIDE 1 MG TABLET PO SCH (10:36)
[2018-03-13] MEDS: PANTOPRAZOLE 40MG TABLET PO SCH (10:37)
--- NOTE | 2018-03-13 11:45 | P.HP ---
Certification for Inpatient Patient admitted to: Observation With expected LOS: <2 Midnights Patient will require the following post-hospital care: Assisted Practitioner: I am a practitioner with admitting privileges, knowledge of patient current condition, hospital course, and medical plan of care. Services: Services provided to patient in accordance with Admission requirements found in Title 42 Section 412.3 of the Code of Federal Regulations Patient History Date of Service: 03/13/18 Primary Care Provider: Jarrett Reason for admission: HTN Urgency History of Present Illness: Patient was sent in to the hospital from his dialysis unit. He had a blood pressure in the 200's. Was like this previously. Complainied of headache. Had a negative ct scan of his head. He has been having this on and off from the time he started dialysis. He was not contolled on PO catapress in the dialysis unit. Allergies Corticosteroids (Glucocorticoids) Allergy (Verified 03/13/18 00:59) Anaphylaxis Home Medications: Bumetanide [Bumex] 2 mg PO DAILY 03/13/18 Carvedilol [Coreg*] 12.5 mg PO BID 03/13/18 Clonidine HCl [Catapres] 0.1 mg PO Q6H PRN 03/13/18 Gabapentin 300 mg PO BEDTIME 03/13/18 Hydralazine HCl 25 mg PO TID 03/13/18 Pantoprazole Sodium [Protonix] 40 mg PO DAILY 03/13/18 Spironolactone [Aldactone] 50 mg PO DAILY 03/13/18 - Past Medical/Surgical History Has patient received pneumonia vaccine in the past: No Diabetic: Yes -: HTN -: IDDM -: Arthritis -: high cholesterol -: cva- 2015 -: anemia -: drug abuse -: colonoscopy -: EGD - Family History Father -: Heart disease Notes: NO REAL HISTORY IS KNOWN OTHER THAN WHAT WAS TOLD TO HIM Mother -: Cancer Notes: NO REAL HISTORY KNOWN OTHER THAN WHAT WAS TOLD TO HIM - Social History Smoking Status: Former smoker Alcohol use: No CD- Drugs: Yes Caffeine use: Yes Place of Residence: [facility] Review of Systems 10-point ROS is otherwise unremarkable General: Other (Headache) Physical Examination - Vital Signs Temperature: 97.6 F Blood Pressure: 140/60 Pulse: 70 Respirations: 18 Pulse Ox (%): 97 - Physical Exam General: Alert, In no apparent distress HEENT: Atraumatic, PERRLA, Mucous membr. moist/pink, EOMI, Sclerae nonicteric Neck: Supple, 2+ carotid pulse no bruit, No LAD, Without JVD or thyroid abnormality Respiratory: Clear to auscultation bilaterally, Normal air movement Cardiovascular: Regular rate/rhythm, Normal S1 S2 Gastrointestinal: Normal bowel sounds, No tenderness Musculoskeletal: No tenderness Integumentary: No rashes Neurological: Normal gait, Normal speech, Normal strength at 5/5 x4 extr, Normal tone, Normal affect Lymphatics: No axilla or inguinal lymphadenopathy - Studies Laboratory Data (last 24 hrs) 03/12/18 18:58: Sodium 137, Potassium 3.1 L, BUN 14, Creatinine 1.90 H, Glucose 150 H, Magnesium 2.0 03/12/18 17:22: WBC 7.6, Hgb 8.7 L, Hct 28.0 L, Plt Count 181 D Assessment and Plan - Problems (Diagnosis) (1) Hypertensive urgency Current Visit: Yes Status: Acute Plan: Have restarted his home medications. Started a catapress patch. Blood pressure is improved. Will see if stays stable we can discharge him on a catapress patch (2) ESRD (end stage renal disease) on dialysis Current Visit: Yes Status: Acute Plan: consult Dr. Rose for dialysis management (3) CHF (congestive heart failure) Onset Date: 07/15/17 Current Visit: No Status: Acute Plan: stable continue carvedilol Qualifiers: Heart failure type: diastolic Heart failure chronicity: acute on chronic Qualified Code(s): I50.33 - Acute on chronic diastolic (congestive) heart failure Discharge Plan: [facility] Plan to discharge in: 24 Hours - Advance Directives Does patient have a Living Will: No Does patient have a Durable POA for Healthcare: No - Code Status/Comfort Care Code Status Assessed: No Code Status: Full Code Physician Review: Patient Assessed, Agree with Above Assessment and Plan Critical Care: No Time Spent Managing Pts Care (In Minutes): 45
[2018-03-13] MEDS ORDERED: D50W 25 GM/50 ML SYRINGE IV PRN (11:48)
[2018-03-13] MEDS ORDERED: GLUCAGON 1 MG/VIAL IM PRN (11:48)
[2018-03-13] MEDS: ONDANSETRON 4 MG/2 ML VIAL IV PRN (12:57)
[2018-03-13] MEDS: ACETAMINOPHEN 500 MG TAB PO PRN ×2 (13:41→21:16)
[2018-03-13] MEDS: INSULIN -REGULAR HUMAN 50 UNIT/0.5 ML ML SQ SCH ×2 (16:30→21:00)
[2018-03-13] MEDS: GABAPENTIN 300 MG CAP PO SCH (21:17)
[2018-03-13] MEDS ORDERED: AMLODIPINE 10 MG TAB PO STA (22:13)
--- NOTE | 2018-03-13 22:31 | P.CNS ---
Date of Consult: 03/13/18 Reason for Consult: ESRD and electrolytes abnormalities and HTN Primary Care Provider: Jarrett Chief Complaint: HTN Urgency Allergies Corticosteroids (Glucocorticoids) Allergy (Verified 03/13/18 00:59) Anaphylaxis Home Medications: Bumetanide [Bumex] 2 mg PO DAILY 03/13/18 Carvedilol [Coreg*] 12.5 mg PO BID 03/13/18 Clonidine HCl [Catapres] 0.1 mg PO Q6H PRN 03/13/18 Gabapentin 300 mg PO BEDTIME 03/13/18 Hydralazine HCl 25 mg PO TID 03/13/18 Pantoprazole Sodium [Protonix] 40 mg PO DAILY 03/13/18 Spironolactone [Aldactone] 50 mg PO DAILY 03/13/18 - Past Medical/Surgical History Diabetic: Yes -: HTN -: IDDM -: Arthritis -: high cholesterol -: cva- 2014 -: anemia -: drug abuse -: colonoscopy -: EGD - Family History Father Medical History: Heart disease Notes: NO REAL HISTORY IS KNOWN OTHER THAN WHAT WAS TOLD TO HIM Mother Medical History: Cancer Notes: NO REAL HISTORY KNOWN OTHER THAN WHAT WAS TOLD TO HIM - Social History Smoking Status: Never smoker Alcohol use: No CD- Drugs: Yes Caffeine use: Yes Place of Residence: [facility] Physical Examination Temp Pulse Resp BP Pulse Ox 99.1 F 84 20 220/100 H 92 03/13/18 16:00 03/13/18 17:51 03/13/18 16:00 03/13/18 17:51 03/13/18 16:00 General: Oriented x3 Neck: Without JVD or thyroid abnormality Respiratory: Clear to auscultation bilaterally Cardiovascular: No edema - Problems (1) ESRD (end stage renal disease) on dialysis Onset Date: 03/13/18 Current Visit: Yes Status: Chronic (2) Hypertensive urgency Onset Date: 03/13/18 Current Visit: Yes Status: Acute (3) Anemia Onset Date: 09/05/15 Current Visit: No Status: Chronic Qualifiers: Anemia type: iron deficiency Iron deficiency anemia type: chronic blood loss Qualified Code(s): D50.0 - Iron deficiency anemia secondary to blood loss (chronic) Conclusions/Impression: A 62 Y/O woman with PMHx of DM, light chain disease, HTN , HCV , ESRD that started on HD recently via Rt [facility] Pt was sent from [place] for elevated BP in ER SBP 220, no chest pIN, sob, CHEST PAIN OR PALPITAION pt was recently hospitalzied and Bp was controlled ESRD on HD will cont MWF renal dose all meds HTN Urgency On Clonidine 0.2mg path WIll increase hydralazine to 100mg po tid Cont COreg for now Labetalol pushes prn Target SBP ~180 in the first 6hrs if BP cont to be elevated then will need to transfer to ICU and start on Nitro vs BB drips DM BS control HCV Light chain disease
[2018-03-14] MEDS: CARVEDILOL 12.5 MG TAB PO SCH ×2 (06:14→18:04)
[2018-03-14 06:17] VITALS: BMI 25.0
[2018-03-14] MEDS: INSULIN -REGULAR HUMAN 50 UNIT/0.5 ML ML SQ SCH ×4 (07:30→20:57)
[2018-03-14] MEDS: AMLODIPINE 10 MG TAB PO SCH ×2 (09:00→11:44)
[2018-03-14] MEDS: HYDRALAZINE HCL 25 MG TABLET PO SCH ×4 (09:00→20:55)
[2018-03-14] MEDS: HYDROCODONE/APAP 5/325 MG TAB PO PRN (10:35)
[2018-03-14] MEDS: SPIRONOLACTONE 25 MG TABLET PO SCH (10:36)
[2018-03-14] MEDS: PANTOPRAZOLE 40MG TABLET PO SCH (10:36)
[2018-03-14] MEDS: BUMETANIDE 1 MG TABLET PO SCH (10:36)
--- NOTE | 2018-03-14 10:43 | P.DS ---
Admission Date: 03/12/18 Discharge Date: 03/14/18 Primary Care Provider: Jarrett Disposition: ROUTINE DISCHARGE Discharge Condition: GOOD Reason for Admission: HTN Urgency - Problems (1) Hypertensive urgency Onset Date: 03/13/18 Current Visit: Yes Status: Acute (2) ESRD (end stage renal disease) on dialysis Onset Date: 03/13/18 Current Visit: Yes Status: Chronic (3) CHF (congestive heart failure) Onset Date: 07/15/17 Current Visit: No Status: Acute Qualifiers: Heart failure type: diastolic Heart failure chronicity: acute on chronic Qualified Code(s): I50.33 - Acute on chronic diastolic (congestive) heart failure Brief History of Present Illness: Patient was sent in to the hospital from his dialysis unit. He had a blood pressure in the 200's. Was like this previously. Complainied of headache. Had a negative ct scan of his head. He has been having this on and off from the time he started dialysis. He was not contolled on PO catapress in the dialysis unit. Hospital Course: Patient was admitted to the floor. Started on his home medications. Adjusted his dose of hydralazine. Nitrous patch was removed. His hydralazine was increased per Dr. Palomo. Will have him sent back to the [facility] after dialysis today. Vital Signs/Physical Exam: Temp Pulse Resp BP Pulse Ox 97.9 F 76 20 154/69 H 94 03/14/18 08:00 03/14/18 10:36 03/14/18 08:00 03/14/18 10:36 03/14/18 08:00 General: Alert, In no apparent distress HEENT: Atraumatic, PERRLA, EOMI Neck: Supple, JVD not distended Respiratory: Clear to auscultation bilaterally, Normal air movement Cardiovascular: Regular rate/rhythm, Normal S1 S2 Gastrointestinal: Normal bowel sounds, No tenderness Musculoskeletal: No tenderness Integumentary: No rashes Neurological: Normal speech, Normal tone, Normal affect Lymphatics: No axilla or inguinal lymphadenopathy Laboratory Data at Discharge: WBC 6.8 K/uL (4.3-10.9) 03/13/18 05:18 Hgb 8.8 g/dL (13.6-17.9) L 03/13/18 05:18 Hct 27.2 % (39.6-49.0) L 03/13/18 05:18 Plt Count 184 K/uL (152-406) 03/13/18 05:18 Sodium 139 mmol/L (136-145) 03/13/18 05:18 Potassium 3.2 mmol/L (3.5-5.1) L 03/13/18 05:18 BUN 18 mg/dL (7-18) 03/13/18 05:18 Creatinine 2.40 mg/dL (0.55-1.3) H 03/13/18 05:18 Glucose 131 mg/dL (74-106) H 03/13/18 05:18 Magnesium 2.0 mg/dL (1.8-2.4) 03/12/18 18:58 Home Medications: Bumetanide [Bumex] 2 mg PO DAILY 03/13/18 Carvedilol [Coreg*] 12.5 mg PO BID 03/13/18 Gabapentin 300 mg PO BEDTIME 03/13/18 Pantoprazole Sodium [Protonix] 40 mg PO DAILY 03/13/18 Spironolactone [Aldactone] 50 mg PO DAILY 03/13/18 Hydralazine [Apresoline*] 100 mg PO TID 30 Days #90 tab 03/14/18 New Medications: Hydralazine [Apresoline*] 100 mg PO TID 30 Days #90 tab Diet: Renal Activity: Ad emilie Physician Review: Patient Assessed, Agree with Above Assessment and Plan Time spent managing pt's care (in minutes): 30
[2018-03-14] MEDS: ONDANSETRON 4 MG/2 ML VIAL IV PRN ×2 (14:08→23:55)
--- NOTE | 2018-03-14 16:33 | P.PN ---
Subjective Date of Service: 03/14/18 Primary Care Provider: Jarrett Chief Complaint: HTN Urgency headache improved Lt sided chest pain today BP improved HD today check CE Physical Examination - Vital Signs Temperature: 99.9 F Blood Pressure: 144/65 Pulse: 75 Respirations: 18 Pulse Ox (%): 95 - Physical Exam General: Oriented x3, Mild distress Neck: Supple, Without JVD or thyroid abnormality Respiratory: Clear to auscultation bilaterally Cardiovascular: No edema, Normal S1 S2 Assessment And Plan - Current Problems (Diagnosis) (1) ESRD (end stage renal disease) on dialysis Onset Date: 03/13/18 Current Visit: Yes Status: Chronic (2) Hypertensive urgency Onset Date: 03/13/18 Current Visit: Yes Status: Acute (3) Anemia Onset Date: 09/05/15 Current Visit: No Status: Chronic Qualifiers: Anemia type: iron deficiency Iron deficiency anemia type: chronic blood loss Qualified Code(s): D50.0 - Iron deficiency anemia secondary to blood loss (chronic) - Plan A 62 Y/O woman with PMHx of DM, light chain disease, HTN , HCV , ESRD that started on HD recently via [facility] Pt was sent from [place] for elevated BP in ER SBP 220, no chest pIN, sob, CHEST PAIN OR PALPITAION pt was recently hospitalzied and Bp was controlled ESRD on HD will cont MWF renal dose all meds HTN Urgency BP controlled now DM BS control HCV Light chain disease Lt sided chest pain painful to touch could muscloskeletal Check CE Physician Review: Patient Assessed, Agree with Above Assessment and Plan
[2018-03-14] MEDS: GABAPENTIN 300 MG CAP PO SCH (20:55)
[2018-03-14] MEDS: ACETAMINOPHEN 500 MG TAB PO PRN (23:48)
[2018-03-15] MEDS: HYDROCODONE/APAP 5/325 MG TAB PO PRN ×2 (05:12→09:13)
[2018-03-15] MEDS: CARVEDILOL 12.5 MG TAB PO SCH (05:18)
[2018-03-15] MEDS: INSULIN -REGULAR HUMAN 50 UNIT/0.5 ML ML SQ SCH ×2 (07:30→11:30)
--- NOTE | 2018-03-15 08:27 | EKG ---
Test Date: 2018-03-14 Test Time: 15:17:28 [employer] Technician: MER MEASUREMENT RESULTS: Intervals: Rate: 76 IL: 180 QRSD: 94 QT: 416 QTc: 468 [place]: P: 45 IL: 180 QRS: -34 T: 62 INTERPRETIVE STATEMENTS: Normal sinus rhythm Left axis deviation Prolonged QT Abnormal ECG Compared to ECG 03/12/2018 17:19:33 Left ventricular hypertrophy no longer present Electronically Signed On 03-15-18 08:26:40 CDT by Justo Fofana
[2018-03-15] MEDS: HYDRALAZINE HCL 25 MG TABLET PO SCH (09:07)
[2018-03-15] MEDS: SPIRONOLACTONE 25 MG TABLET PO SCH (09:07)
[2018-03-15] MEDS: BUMETANIDE 1 MG TABLET PO SCH (09:08)
[2018-03-15 09:09] VITALS: BP 142/70
[2018-03-15] MEDS: PANTOPRAZOLE 40MG TABLET PO SCH (09:09)
[2018-03-15] MEDS: AMLODIPINE 10 MG TAB PO SCH (09:09)
[2018-03-15] MEDS: ONDANSETRON 4 MG/2 ML VIAL IV PRN (09:13)
[2018-03-15 09:20] VITALS: O2SAT 96
[2018-03-15 11:11] VITALS: TEMP 97.7
--- NOTE | 2018-03-15 12:09 | P.PN ---
Subjective Date of Service: 03/15/18 Primary Care Provider: Jarrett Chief Complaint: HTN Urgency Subjective: No new changes (Patient complaint of chest pain during dialysis yesterday. None since then. He complaints of vomitting this morning. None reported to nursing. Ate all his breakfast. He states he couldn't eat. Was able to tolerate his pain meds when nursing stated he shouldn't take them if he will throw them up. Tolerated his pain medications fine) Review of Systems 10-point ROS is otherwise unremarkable General: Weakness Cardiovascular: Chest Pain Gastrointestinal: Nausea Physical Examination - Vital Signs Temperature: 97.7 F Blood Pressure: 142/70 Pulse: 64 Respirations: 18 Pulse Ox (%): 97 - Physical Exam General: Alert, In no apparent distress HEENT: Atraumatic, PERRLA, EOMI Neck: Supple, JVD not distended Respiratory: Clear to auscultation bilaterally, Normal air movement Cardiovascular: Regular rate/rhythm, Normal S1 S2 Gastrointestinal: Normal bowel sounds, No tenderness Musculoskeletal: No tenderness Integumentary: No rashes Neurological: Normal speech, Normal tone, Normal affect Lymphatics: No axilla or inguinal lymphadenopathy Assessment & Plan - Problems (Diagnosis) (1) Hypertensive urgency Onset Date: 03/13/18 Current Visit: Yes Status: Acute Plan: Have restarted his home medications. Started a catapress patch. Blood pressure is improved. Will see if stays stable we can discharge him on a catapress patch (2) ESRD (end stage renal disease) on dialysis Onset Date: 03/13/18 Current Visit: Yes Status: Chronic Plan: consult Dr. Rose for dialysis management (3) CHF (congestive heart failure) Onset Date: 07/15/17 Current Visit: No Status: Acute Plan: stable continue carvedilol Qualifiers: Heart failure type: diastolic Heart failure chronicity: acute on chronic Qualified Code(s): I50.33 - Acute on chronic diastolic (congestive) heart failure (4) Malingering Current Visit: Yes Status: Acute Plan: Have held his discharge yesterday. He has a history of non compliance with his medications. He had no complaints during dialysis. Usually only complaints to his doctors. Thought he states he is vomitting. No vomiting reported by nursing. Slight elevation in his troponin. However not significant for a patient with ESRD and chf. [facility]. He can follow up with me in the office. Physician Review: Patient Assessed, Agree with Above Assessment and Plan Critical Care: No Time Spent Managing Pts Care (In Minutes): 20
--- NOTE | 2018-03-17 13:27 | P.DS ---
Admission Date: 03/12/18 Discharge Date: 03/15/18 Primary Care Provider: Jarrett Disposition: ROUTINE DISCHARGE Discharge Condition: GOOD Reason for Admission: HTN Urgency - Problems (1) Hypertensive urgency Onset Date: 03/13/18 Status: Acute (2) ESRD (end stage renal disease) on dialysis Onset Date: 03/13/18 Status: Chronic (3) CHF (congestive heart failure) Onset Date: 07/15/17 Status: Acute Qualifiers: Heart failure type: diastolic Heart failure chronicity: acute on chronic Qualified Code(s): I50.33 - Acute on chronic diastolic (congestive) heart failure (4) Malingering Status: Acute Brief History of Present Illness: Patient was sent in to the hospital from his dialysis unit. He had a blood pressure in the 200's. Was like this previously. Complainied of headache. Had a negative ct scan of his head. He has been having this on and off from the time he started dialysis. He was not contolled on PO catapress in the dialysis unit. Hospital Course: Patient was admitted to the floor. Started on his home medications. Adjusted his dose of hydralazine. Nitrous patch was removed. His hydralazine was increased per Dr. Palomo. Will have him sent back to the [facility] after dialysis today. Discharge was held for a day. As the patient was complaining of chest pain during dialysis. The next day he was complaining of nausea and vomiting. Nursing did not see any vomiting. He ate most of his breakfast. Will try to return him to the [facility] Vital Signs/Physical Exam: Temp Pulse Resp BP Pulse Ox 97.7 F 64 18 142/70 H 97 03/15/18 12:09 03/15/18 12:09 03/15/18 12:09 03/15/18 12:09 03/15/18 12:09 General: Alert, In no apparent distress HEENT: Atraumatic, PERRLA, EOMI Neck: Supple, JVD not distended Respiratory: Clear to auscultation bilaterally, Normal air movement Cardiovascular: Regular rate/rhythm, Normal S1 S2 Gastrointestinal: Normal bowel sounds, No tenderness Musculoskeletal: No tenderness Integumentary: No rashes Neurological: Normal speech, Normal tone, Normal affect Lymphatics: No axilla or inguinal lymphadenopathy Laboratory Data at Discharge: WBC 6.8 K/uL (4.3-10.9) 03/13/18 05:18 Hgb 8.8 g/dL (13.6-17.9) L 03/13/18 05:18 Hct 27.2 % (39.6-49.0) L 03/13/18 05:18 Plt Count 184 K/uL (152-406) 03/13/18 05:18 Sodium 139 mmol/L (136-145) 03/13/18 05:18 Potassium 3.2 mmol/L (3.5-5.1) L 03/13/18 05:18 BUN 18 mg/dL (7-18) 03/13/18 05:18 Creatinine 2.40 mg/dL (0.55-1.3) H 03/13/18 05:18 Glucose 131 mg/dL (74-106) H 03/13/18 05:18 Magnesium 2.0 mg/dL (1.8-2.4) 03/12/18 18:58 Troponin I 0.14 ng/mL (0.0-0.045) H 03/15/18 03:01 Home Medications: Bumetanide [Bumex] 2 mg PO DAILY 03/13/18 Carvedilol [Coreg*] 12.5 mg PO BID 03/13/18 Gabapentin 300 mg PO BEDTIME 03/13/18 Pantoprazole Sodium [Protonix] 40 mg PO DAILY 03/13/18 Spironolactone [Aldactone] 50 mg PO DAILY 03/13/18 Hydralazine [Apresoline*] 100 mg PO TID 30 Days #90 tab 03/14/18 Sulfamethoxazole/Trimethoprim [Bactrim Ds Tablet] 1 each PO BID #10 tablet 03/15 New Medications: Hydralazine [Apresoline*] 100 mg PO TID 30 Days #90 tab Sulfamethoxazole/Trimethoprim [Bactrim Ds Tablet] 1 each PO BID #10 tablet Diet: Renal Activity: Ad emilie Followup: Irvin Cruz MD [ACTIVE - CAN ADMIT] - 1-2 Weeks
== END 2018-03-15 14:00 ==
LOC: ER 16:49 → ERHOLD 22:58 → 2ND 23:40
PROVIDERS: ADMIT Internal Medicine; ATTEND Internal Medicine
PROC: 5A1D70Z Performance of Urinary Filtration, Intermittent, Less than 6 Hours Per Day (ICD-10-PCS; principal; 2018-03-12)
DX: I16.0 Hypertensive urgency (principal); I13.2 Hypertensive heart and chronic kidney disease with heart failure and with stage 5 chronic kidney disease, or end stage renal disease; N18.6 End stage renal disease; I50.32 Chronic diastolic (congestive) heart failure; E11.9 Type 2 diabetes mellitus without complications; Z99.2 Dependence on renal dialysis; Z76.5 Malingerer [conscious simulation]; Z86.73 Personal history of transient ischemic attack (TIA), and cerebral infarction without residual deficits
CPT/HCPCS: 36415; 70450; 80048; 80307; 81003; 81015; 82553; 82962; 83735; 84484; 85025; 87070; 87077; 87086; 87088; 87186; 87205; 93005; 93970; 99285; G0257; G0378; J0360; J2405; J3010

== ENCOUNTER 2018-04-30 15:48 | Emergency (ER) | payer OTHER ==
[2018-04-30] MEDS ORDERED: CODEINE 30MG/APAP 300MG TAB ONE (17:53)
[2018-04-30] MEDS ORDERED: levoFLOXacin 750 MG TAB ONE (17:53)
--- NOTE | 2018-04-30 18:33 | RAD REPORT ---
EXAM DESCRIPTION: US - Scrotum Testicles - 04/30/2018 6:07 pm CLINICAL HISTORY: Right testicular pain COMPARISON: No comparisons FINDINGS: The right testicle 3.9 x 2.7 x 2.0 cm. No intratesticular masses or evidence of testicular torsion. The left testicle 4.0 x 3.2 x 1.7 cm. No intratesticular masses or evidence of testicular torsion. The right epididymis is enlarged with increased blood flow compatible with right epididymitis. A right hydrocele is present, small. IMPRESSION: Right epididymitis.
--- NOTE | 2018-04-30 18:52 | EDPHYS ---
Physician Documentation [facility] Name: Billy Trejo Age: 62 yrs Sex: Male : 1955 Arrival Date: 04/30/2018 Time: 15:49 Bed 16 Private MD: Gerardo Farias ED Physician Avni Neves HPI: 05/01 07:12 This 62 yrs old Black Male presents to ER via Wheelchair with complaints of Testicular kdr Pain. 07:12 The patient presents with scrotal pain, of the right side, in the area of the kdr epidydimis, with swelling, without erythema, swelling, that is moderate, of the right testicle, tenderness, of the right testicle, in the area of the epidydimis, urinary symptoms. Onset: The symptoms/episode began/occurred gradually, 1 week(s) ago. Modifying factors: The symptoms are alleviated by nothing, the symptoms are aggravated by movement, pressure. Associated signs and symptoms: Pertinent positives: Right flank pain, Pertinent negatives: abdominal pain, constipation, diarrhea, dysuria, fever, hematuria, vomiting. Severity of symptoms: At their worst the symptoms were mild, in the emergency department the symptoms are unchanged. The patient has not experienced similar symptoms in the past. The patient has not recently seen a physician. Historical: - Allergies: 04/30 16:34 Corticosteroids (Glucocorticoids); ph - PMHx: 16:34 "spot on lung"; Anemia; Arthritis; CHF; CVA; Diabetes - IDDM; Dialysis; M,W,F; GERD; GI ph Bleed; High Cholesterol; Hypertension; Pneumonia; - Immunization history:: Adult Immunizations unknown. - Social history:: Smoking status: unknown. - Ebola Screening: : Patient negative for fever greater than or equal to 101.5 degrees Fahrenheit, and additional compatible Ebola Virus Disease symptoms Patient denies exposure to infectious person Patient denies travel to an Ebola-affected area in the 21 days before illness onset. ROS: 05/01 07:12 Constitutional: Negative for fever, chills, and weight loss, Eyes: Negative for injury, kdr pain, redness, and discharge, ENT: Negative for injury, pain, and discharge, Neck: Negative for injury, pain, and swelling, Cardiovascular: Negative for chest pain, palpitations, and edema, Respiratory: Negative for shortness of breath, cough, wheezing, and pleuritic chest pain, Abdomen/GI: Negative for abdominal pain, nausea, vomiting, diarrhea, and constipation, Back: Negative for injury and pain, MS/Extremity: Negative for injury and deformity, Skin: Negative for injury, rash, and discoloration, Neuro: Negative for headache, weakness, numbness, tingling, and seizure activity. Psych: Negative for depression, anxiety, suicide ideation, homicidal ideation, and hallucinations, Allergy/Immunology: Negative for hives, rash, and allergies, Endocrine: Negative for neck swelling, polydipsia, polyuria, polyphagia, and marked weight changes, Hematologic/Lymphatic: Negative for swollen nodes, abnormal bleeding, and unusual bruising. : Positive for testicular pain Exam: 07:12 Constitutional: This is a well developed, well nourished patient who is awake, alert, kdr and in no acute distress. 07:12 : CVA tenderness, is absent, Male external genitalia: swelling, of the right testicle is noted, tenderness, of the epididymis area, that is moderate. Vital Signs: 04/30 16:32 BP 139 / 69; Pulse 89; Resp 18; Temp 97.9(TE); Pulse Ox 100% on R/A; Weight 77.11 kg; ph Height 5 ft. 11 in. (180.34 cm); Pain 9/10; 16:32 Body Mass Index 23.71 (77.11 kg, 180.34 cm) ph MDM: 18:50 Patient medically screened. kdr 05/01 07:12 Data reviewed: vital signs, nurses notes, lab test result(s), radiologic studies. kdr Counseling: I had a detailed discussion with the patient and/or guardian regarding: the historical points, exam findings, and any diagnostic results supporting the discharge/admit diagnosis, lab results, radiology results, the need for outpatient follow up. 04/30 17:20 Order name: US Scrotum Testicles; Complete Time: 18:48 kdr Administered Medications: 04/30 17:52 Drug: LevaQUIN 750 mg Route: PO; rv 17:52 Drug: Tylenol #3 (300 mg-30 mg) 2 tabs Route: PO; rv Disposition: 04/30/18 18:50 Discharged to Home. Impression: Epididymitis. - Condition is Stable. - Discharge Instructions: Epididymitis. - Prescriptions for Levaquin 500 mg Oral Tablet - take 1 tablet by ORAL route once daily for 10 days; 10 tablet. Tramadol 50 mg Oral Tablet - take 1 tablet by ORAL route every 8 hours as needed; 12 tablet. - Medication Reconciliation Form, Thank You Letter, Antibiotic Education, Prescription Opioid Use form. - Follow up: Gerardo Farias MD; When: 2 - 3 days; Reason: If symptoms return, Further diagnostic work-up, Recheck today's complaints, Continuance of care, Re-evaluation by your physician. - Problem is new. - Symptoms have improved. Signatures: Dispatcher [employer] EDMS Avni Neves MD MD kdr Dilia Rodriguez RN RN Alfredo Mendoza RN RN rv Corrections: (The following items were deleted from the chart) 19:12 18:50 04/30/2018 18:50 Discharged to Home. Impression: Epididymitis. Condition is rv Stable. Forms are Medication Reconciliation Form, Thank You Letter, Antibiotic Education, Prescription Opioid Use. Follow up: Gerardo Farias; When: 2 - 3 days; Reason: If symptoms return, Further diagnostic work-up, Recheck today's complaints, Continuance of care, Re-evaluation by your physician. Problem is new. Symptoms have improved. kdr
--- NOTE | 2018-04-30 18:52 | ER ---
Nurse's Notes [facility] Name: Billy Trejo Age: 62 yrs Sex: Male : 1955 Arrival Date: 04/30/2018 Time: 15:49 Bed 16 Private MD: Gerardo Farias Diagnosis: Epididymitis Presentation: 04/30 16:30 Presenting complaint: Patient states: R sided testicular pain and slight swelling x 1 ph week, worse today, radiates to R groin and R thigh area, denies fever or urinary symptoms, also denies N/V/D. Transition of care: patient was not received from another setting of care. Onset of symptoms was April 30, 2018. Risk Assessment: Do you want to hurt yourself or someone else? Patient reports no desire to harm self or others. Initial Sepsis Screen: Does the patient meet any 2 criteria? No. Patient's initial sepsis screen is negative. Does the patient have a suspected source of infection? No. Patient's initial sepsis screen is negative. Care prior to arrival: None. 16:30 Method Of Arrival: Wheelchair ph 16:30 Acuity: BRAD 3 ph Historical: - Allergies: 16:34 Corticosteroids (Glucocorticoids); ph - PMHx: 16:34 "spot on lung"; Anemia; Arthritis; CHF; CVA; Diabetes - IDDM; Dialysis; M,W,F; GERD; GI ph Bleed; High Cholesterol; Hypertension; Pneumonia; - Immunization history:: Adult Immunizations unknown. - Social history:: Smoking status: unknown. - Ebola Screening: : Patient negative for fever greater than or equal to 101.5 degrees Fahrenheit, and additional compatible Ebola Virus Disease symptoms Patient denies exposure to infectious person Patient denies travel to an Ebola-affected area in the 21 days before illness onset. Screenin:10 Abuse screen: Denies threats or abuse. Denies injuries from another. Nutritional rv screening: No deficits noted. Tuberculosis screening: No symptoms or risk factors identified. Fall Risk None identified. Assessment: 18:00 General: Appears in no apparent distress. uncomfortable, Behavior is calm, cooperative. rv 18:00 Pain: Complains of pain in groin. Neuro: Level of Consciousness is awake, alert, obeys rv commands, Oriented to person, place, time, situation. Cardiovascular: Capillary refill < 3 seconds. Respiratory: Airway is patent. GI: No signs and/or symptoms were reported involving the gastrointestinal system. : No signs and/or symptoms were reported regarding the genitourinary system. EENT: No signs and/or symptoms were reported regarding the EENT system. Derm: Skin is intact. Musculoskeletal: No signs and/or symptoms reported regarding the musculoskeletal system. Vital Signs: 16:32 BP 139 / 69; Pulse 89; Resp 18; Temp 97.9(TE); Pulse Ox 100% on R/A; Weight 77.11 kg; ph Height 5 ft. 11 in. (180.34 cm); Pain 9/10; 16:32 Body Mass Index 23.71 (77.11 kg, 180.34 cm) ph ED Course: 15:49 Patient arrived in ED. sb2 15:50 Gerardo Farias MD is Private Physician. sb2 16:32 Triage completed. ph 16:34 Arm band placed on Patient placed in an exam room. ph 16:48 Avni Neves MD is Attending Physician. kdr 17:52 US Scrotum Testicles Sent. rv 18:04 US Scrotum Testicles In Process Unspecified. EDMS 18:50 Gerardo Farias MD is Referral Physician. kdr 19:10 No provider procedures requiring assistance completed. Patient did not have IV access rv during this emergency room visit. 19:12 Patient has correct armband on for positive identification. Placed in gown. Bed in low rv position. Call light in reach. Side rails up X 1. Pulse ox on. NIBP on. Administered Medications: 17:52 Drug: LevaQUIN 750 mg Route: PO; rv 17:52 Drug: Tylenol #3 (300 mg-30 mg) 2 tabs Route: PO; rv Outcome: 18:50 Discharge ordered by . kdr 19:10 Discharged to home ambulatory. rv 19:10 Condition: good 19:10 Discharge instructions given to patient, Instructed on discharge instructions, follow up and referral plans. medication usage, Demonstrated understanding of instructions, follow-up care, medications, Prescriptions given X 2. 19:12 Patient left the ED. rv Signatures: Dispatcher [employer] EDMS Avni Neves MD MD kdr Dilia Rodriguez RN RN Renuka Espinosa sb2 Reji, Alfredo, RN RN rv
[2018-04-30 19:19] VITALS: BP 139/69; TEMP 97.9; O2SAT 100
== END 2018-04-30 19:12 | disposition home or self-care (01) ==
LOC: ER 15:48
DX: N45.1 Epididymitis (principal); I10 Essential (primary) hypertension; Z88.8 Allergy status to other drugs, medicaments and biological substances; Z99.2 Dependence on renal dialysis
CPT/HCPCS: 76870; 99284

== ENCOUNTER 2019-01-12 13:21 | Observation (INO) | payer OTHER ==
[2019-01-12] MEDS: PANTOPRAZOLE 40MG TABLET PO SCH (06:30)
[2019-01-12 13:47] LABS: Absolute Lymphocytes (CBC) 0.7 K/uL (0.7-4.9); Basophils % 0.4 % (0-1.3); Hematocrit 31.6 % (39.6-49.0); Lymphocytes % 9.8 % (15.3-44.8); MPV 9.2 fL (7.6-11.3); RBC Red Blood Cell Count 3.59 M/uL (4.33-5.43)
[2019-01-12 13:48] LABS: Protime INR 1.02
[2019-01-12 14:07] LABS: Albumin 3.7 g/dL (3.4-5.0); Bilirubin Direct 0.1 mg/dL (0-0.2); Bilirubin Total 0.2 mg/dL (0.2-1.0); Magnesium 1.9 mg/dL (1.8-2.4); Potassium 5.1 mmol/L (3.5-5.1); Protein, Total 7.7 g/dL (6.4-8.2); Troponin (Emerg Dept Use Only) 0.03 ng/mL (0.0-0.045)
--- NOTE | 2019-01-12 14:31 | RAD REPORT ---
EXAM DESCRIPTION: RAD - Chest Single View - 01/12/2019 1:57 pm CLINICAL HISTORY: Cough, delayed dialysis COMPARISON: February 2018 TECHNIQUE: AP portable chest image was obtained 1354 hours . FINDINGS: Dialysis catheter is in place. No peripheral mass or consolidation seen. Lung markings in the left base are mildly prominent. Overall no significant failure or volume overload pattern seen. H eart and vasculature are normal. No measurable pleural effusion and no pneumothorax. No acute bony ab normality seen. No acute aortic findings suspected. IMPRESSION: Minimal asymmetric prominence of the interstitial pattern left base. Overall lung markin gs are much less pronounced than seen on the comparison. The asymmetry could indicated mild interstitial infiltrate. No significant failure or volume overload seen.
--- NOTE | 2019-01-12 14:42 | ER ---
Nurse's Notes [facility] Name: Billy Trejo Age: 63 yrs Sex: Male : 1955 Arrival Date: 01/12/2019 Time: 13:25 Bed 6 Private MD: Diagnosis: Dyspnea;End stage renal disease-on hd, missed 2 weeks;Weakness;Type 1 diabetes mellitus;Unspecified combined systolic (congestive) and diastolic (congestive) heart failure-volume overload Presentation: 01/12 13:30 Presenting complaint: Patient states: missed dialysis for past 2 weeks, states he just iw didn't feel like going, Dr. Calderon is environmental services lead for Dr. Cruz, office called him and told him to come to ER for emergent dialysis today. Transition of care: patient was not received from another setting of care. Onset of symptoms was January 12, 2019. Risk Assessment: Do you want to hurt yourself or someone else? Patient reports no desire to harm self or others. Initial Sepsis Screen: Does the patient meet any 2 criteria? No. Patient's initial sepsis screen is negative. Does the patient have a suspected source of infection? No. Patient's initial sepsis screen is negative. Care prior to arrival: None. 13:30 Method Of Arrival: EMS: [facility] iw 13:30 Acuity: BRAD 3 iw Historical: - Allergies: 13:35 Corticosteroids (Glucocorticoids); iw - PMHx: 13:35 "spot on lung"; Anemia; Arthritis; CHF; CVA; Diabetes - IDDM; Dialysis; M,W,F; GERD; GI iw Bleed; High Cholesterol; Hypertension; Pneumonia; - PSHx: 16:37 None; iw - Immunization history:: Adult Immunizations not up to date. - Social history:: Smoking status: . - Ebola Screening: : Patient negative for fever greater than or equal to 101.5 degrees Fahrenheit, and additional compatible Ebola Virus Disease symptoms Patient denies exposure to infectious person Patient denies travel to an Ebola-affected area in the 21 days before illness onset No symptoms or risks identified at this time. - Family history:: not pertinent. Screenin:08 Abuse screen: Denies threats or abuse. Denies injuries from another. Nutritional iw screening: No deficits noted. Tuberculosis screening: No symptoms or risk factors identified. Fall Risk IV access (20 points). Assessment: 14:07 General: Appears in no apparent distress. Behavior is calm, cooperative. Pain: Denies iw pain. Neuro: Level of Consciousness is awake, alert, obeys commands, Oriented to person, place, time, situation, Moves all extremities. Full function. Cardiovascular: Patient's skin is warm and dry. Cardiovascular: Denies chest pain, shortness of breath, Pulses are all present. Edema is absent. Dialysis shunt: in the anterior aspect of right upper chest. Respiratory: Respiratory effort is even, unlabored, Respiratory pattern is regular, symmetrical. GI: No signs and/or symptoms were reported involving the gastrointestinal system. Abdomen is flat, non-distended. Derm: Skin is intact, is healthy with good turgor. Musculoskeletal: Range of motion: intact in all extremities. 15:05 Reassessment: Patient appears in no apparent distress at this time. Patient and/or iw family updated on plan of care and expected duration. Pain level reassessed. Patient is alert, oriented x 3, equal unlabored respirations, skin warm/dry/pink. 17:01 Reassessment: Patient appears in no apparent distress at this time. Patient and/or iw family updated on plan of care and expected duration. Pain level reassessed. Patient is alert, oriented x 3, equal unlabored respirations, skin warm/dry/pink. Vital Signs: 13:35 BP 200 / 89; Pulse 67; Resp 16; Temp 97.5; Pulse Ox 100% on R/A; iw 14:07 BP 199 / 98; Pulse 64; Resp 16; Pulse Ox 98% on R/A; Pain 0/10; iw 17:01 BP 200 / 89; Pulse 62; Resp 16 S; Pulse Ox 98% on R/A; Pain 0/10; iw ED Course: 13:25 Patient arrived in ED. iw 13:29 Emerson Marsh MD is Attending Physician. alla 13:35 Triage completed. iw 13:38 Initial lab(s) drawn, by me, sent to lab. Inserted saline lock: 20 gauge in right em1 antecubital area, using aseptic technique. Blood collected. 13:55 X-ray completed. Portable x-ray completed in exam room. Patient tolerated procedure kw well. 13:57 XRAY Chest (1 view) In Process Unspecified. EDMS 13:57 Melody Younger, RN is Primary Nurse. iw 14:10 Patient has correct armband on for positive identification. iw 14:10 Arm band placed on. iw 14:38 Taty Alfaro MD is Hospitalizing Provider. alla 14:39 Bull Fierro MD is Hospitalizing Provider. alla 17:02 No provider procedures requiring assistance completed. Patient admitted, IV remains in iw place. Administered Medications: 15:03 Drug: Kayexalate 30 grams Route: PO; iw 16:00 Follow up: Response: No adverse reaction iw 15:04 Drug: Norvasc 10 mg Route: PO; iw 19:39 Follow up: Response: No adverse reaction; Blood pressure is lowered iw 15:04 Drug: Lasix 60 mg Route: IVP; Site: right antecubital; iw 16:10 Follow up: Response: No adverse reaction iw Outcome: 14:41 Decision to Hospitalize by Provider. alla 17:02 Admitted to Med/surg accompanied by tech, via wheelchair, room 203, with chart, Report iw called to MARY Ramirez 17:02 Condition: good 17:02 Instructed on the need for admit. 17:18 Patient left the ED. iw Signatures: Dispatcher [employer] Emerson Randle MD MD cha Williams, Irene, RN RN Larry Norris em1 Tena Vega
--- NOTE | 2019-01-12 14:42 | EDPHYS ---
[facility] Name: Billy Trejo Age: 63 yrs Sex: Male : 1955 Arrival Date: 01/12/2019 Time: 13:25 Bed 6 Private MD: ED Physician Emerson Marsh HPI: 01/12 14:34 This 63 yrs old Black Male presents to ER via EMS with complaints of Missed Dialyis. alla 14:34 The patient has shortness of breath at rest, with light activity. Onset: The alla symptoms/episode began/occurred 5 day(s) ago. The patient's shortness of breath has no apparent modifying factors. weak, sob. Associated signs and symptoms: Pertinent positives: dizziness, nausea. Severity of symptoms: At their worst the symptoms were mild moderate yesterday, in the emergency department the symptoms are unchanged. Severity of symptoms: At their worst the symptoms were in the emergency department the symptoms. The patient has experienced similar episodes in the past, a few times. Historical: - Allergies: 13:35 Corticosteroids (Glucocorticoids); iw - PMHx: 13:35 "spot on lung"; Anemia; Arthritis; CHF; CVA; Diabetes - IDDM; Dialysis; M,W,F; GERD; GI iw Bleed; High Cholesterol; Hypertension; Pneumonia; - PSHx: 16:37 None; iw - Immunization history:: Adult Immunizations not up to date. - Social history:: Smoking status: . - Ebola Screening: : Patient negative for fever greater than or equal to 101.5 degrees Fahrenheit, and additional compatible Ebola Virus Disease symptoms Patient denies exposure to infectious person Patient denies travel to an Ebola-affected area in the 21 days before illness onset No symptoms or risks identified at this time. - Family history:: not pertinent. ROS: 14:34 Constitutional: Negative for fever, chills, and weight loss, Eyes: Negative for injury, alla pain, redness, and discharge, ENT: Negative for injury, pain, and discharge, Neck: Negative for injury, pain, and swelling, Cardiovascular: Negative for chest pain, palpitations, and edema, Abdomen/GI: Negative for abdominal pain, nausea, vomiting, diarrhea, and constipation, Back: Negative for injury and pain, : Negative for injury, bleeding, discharge, and swelling, MS/Extremity: Negative for injury and deformity, Skin: Negative for injury, rash, and discoloration, Psych: Negative for depression, anxiety, suicide ideation, homicidal ideation, and hallucinations, Allergy/Immunology: Negative for hives, rash, and allergies, Endocrine: Negative for neck swelling, polydipsia, polyuria, polyphagia, and marked weight changes, Hematologic/Lymphatic: Negative for swollen nodes, abnormal bleeding, and unusual bruising. 14:34 Respiratory: Positive for shortness of breath. 14:34 MS/extremity: Positive for decreased range of motion, pain, swelling. Exam: 14:34 Constitutional: This is a well developed, well nourished patient who is awake, alert, alla and in no acute distress. Head/Face: Normocephalic, atraumatic. Eyes: Pupils equal round and reactive to light, extra-ocular motions intact. Lids and lashes normal. Conjunctiva and sclera are non-icteric and not injected. Cornea within normal limits. Periorbital areas with no swelling, redness, or edema. ENT: Nares patent. No nasal discharge, no septal abnormalities noted. Tympanic membranes are normal and external auditory canals are clear. Oropharynx with no redness, swelling, or masses, exudates, or evidence of obstruction, uvula midline. Mucous membranes moist. Neck: Trachea midline, no thyromegaly or masses palpated, and no cervical lymphadenopathy. Supple, full range of motion without nuchal rigidity, or vertebral point tenderness. No Meningismus. Chest/axilla: Normal chest wall appearance and motion. Nontender with no deformity. No lesions are appreciated. Cardiovascular: Regular rate and rhythm with a normal S1 and S2. No gallops, murmurs, or rubs. Normal PMI, no JVD. No pulse deficits. Respiratory: Lungs have equal breath sounds bilaterally, clear to auscultation and percussion. No rales, rhonchi or wheezes noted. No increased work of breathing, no retractions or nasal flaring. Abdomen/GI: Soft, non-tender, with normal bowel sounds. No distension or tympany. No guarding or rebound. No evidence of tenderness throughout. Back: No spinal tenderness. No costovertebral tenderness. Full range of motion. Male : Normal genitalia with no discharge or lesions. Skin: Warm, dry with normal turgor. Normal color with no rashes, no lesions, and no evidence of cellulitis. Neuro: Awake and alert, GCS 15, oriented to person, place, time, and situation. Cranial nerves II-XII grossly intact. Motor strength 5/5 in all extremities. Sensory grossly intact. Cerebellar exam normal. Normal gait. Psych: Awake, alert, with orientation to person, place and time. Behavior, mood, and affect are within normal limits. 14:34 Musculoskeletal/extremity: DVT Exam: no tenderness, negative Homans' sign noted on exam, no appreciated bluish discoloration, no erythema, no increased warmth, pain, swelling. Vital Signs: 13:35 BP 200 / 89; Pulse 67; Resp 16; Temp 97.5; Pulse Ox 100% on R/A; iw 14:07 BP 199 / 98; Pulse 64; Resp 16; Pulse Ox 98% on R/A; Pain 0/10; iw 17:01 BP 200 / 89; Pulse 62; Resp 16 S; Pulse Ox 98% on R/A; Pain 0/10; iw MDM: 13:29 Patient medically screened. [facility] 14:34 Data reviewed: vital signs, nurses notes, lab test result(s), EKG, radiologic studies, alla plain films. 01/12 13:29 Order name: Basic Metabolic Panel; Complete Time: 14:31 [facility] 01/12 13:29 Order name: CBC with Diff; Complete Time: 14:31 [facility] 01/12 13:29 Order name: LFT's; Complete Time: 14:31 [facility] 01/12 13:29 Order name: Magnesium; Complete Time: 14:31 [facility] 01/12 13:29 Order name: NT PRO-BNP; Complete Time: 14:31 [facility] 01/12 13:29 Order name: PT-INR; Complete Time: 14:31 [facility] 01/12 13:29 Order name: Troponin (emerg Dept Use Only); Complete Time: 14:31 [facility] 01/12 15:52 Order name: Hepatitis Panel [facility] 01/12 15:54 Order name: Hepatitis B Surface Antibody [facility] 01/12 15:54 Order name: Hep B Core Ab, Tot/reflex IgM [facility] 01/12 15:54 Order name: CBC with Automated Diff [facility] 01/12 15:54 Order name: CBC with Automated Diff [facility] 01/12 13:29 Order name: XRAY Chest (1 view); Complete Time: 15:39 [facility] 01/12 13:29 Order name: EKG; Complete Time: 13:30 [facility] 01/12 13:29 Order name: Cardiac monitoring; Complete Time: 14:07 [facility] 01/12 13:29 Order name: EKG - Nurse/Tech; Complete Time: 14:07 [facility] 01/12 13:29 Order name: IV Saline Lock; Complete Time: 13:38 [facility] 01/12 13:29 Order name: Labs collected and sent; Complete Time: 13:38 [facility] 01/12 13:29 Order name: O2 Per Protocol; Complete Time: 14:07 [facility] 01/12 15:06 Order name: Diet Low Potassium; Complete Time: 15:07 01/12 15:54 Order name: CONS Pharmacy Consult [facility] 01/12 15:54 Order name: Regular [facility] 01/12 15:54 Order name: Comprehensive Metabolic Panel [facility] 01/12 15:54 Order name: Comprehensive Metabolic Panel [facility] 01/12 16:01 Order name: CONS Physician Consult [facility] 01/12 13:29 Order name: O2 Sat Monitoring; Complete Time: 14:07 [facility] 01/12 13:29 Order name: Urine Dipstick-Ancillary (obtain specimen); Complete Time: 16:49 [facility] Administered Medications: 15:03 Drug: Kayexalate 30 grams Route: PO; iw 16:00 Follow up: Response: No adverse reaction iw 15:04 Drug: Norvasc 10 mg Route: PO; iw 19:39 Follow up: Response: No adverse reaction; Blood pressure is lowered iw 15:04 Drug: Lasix 60 mg Route: IVP; Site: right antecubital; iw 16:10 Follow up: Response: No adverse reaction Disposition: 01/12/19 14:41 Hospitalization ordered by Bull Fierro for Inpatient Admission. Preliminary diagnosis are Dyspnea, End stage renal disease - on hd, missed 2 weeks, Weakness, Type 1 diabetes mellitus, Unspecified combined systolic (congestive) and diastolic (congestive) heart failure - volume overload. - Bed requested for Telemetry/MedSurg (observation). - Status is Inpatient Admission. iw - Condition is Fair. - Problem is new. - Symptoms have improved. UTI on Admission? No Signatures: Dispatcher [employer] EDMS Paterson, Chantal, RN RN dw Maximo, Emerson, MD MD alla Aren, Melody, RN RN iw Corrections: (The following items were deleted from the chart) 14:43 14:41 Hospitalization Ordered by Bull Fierro MD for Inpatient Admission. [facility] Preliminary diagnosis is Dyspnea; End stage renal disease - on hd; Weakness; Type 1 diabetes mellitus; Unspecified combined systolic (congestive) and diastolic (congestive) heart failure - volume overload. Bed requested for Telemetry/MedSurg (observation). Status is Inpatient Admission. Condition is Fair. Problem is new. Symptoms have improved. UTI on Admission? No. alla 15:55 15:54 HCV w/reflex PCR ordered. [facility] EDMS 15:55 15:54 Hep B Surface AG w/ Confirm ordered. [facility] EDMS 16:48 14:43 01/12/2019 14:41 Hospitalization Ordered by Bull Fierro MD for Inpatient dw Admission. Preliminary diagnosis is Dyspnea; End stage renal disease - on hd, missed 2 weeks; Weakness; Type 1 diabetes mellitus; Unspecified combined systolic (congestive) and diastolic (congestive) heart failure - volume overload. Bed requested for Telemetry/MedSurg (observation). Status is Inpatient Admission. Condition is Fair. Problem is new. Symptoms have improved. UTI on Admission? No. alla 17:18 16:48 01/12/2019 14:41 Hospitalization Ordered by Bull Fierro MD for Inpatient iw Admission. Preliminary diagnosis is Dyspnea; End stage renal disease - on hd, missed 2 weeks; Weakness; Type 1 diabetes mellitus; Unspecified combined systolic (congestive) and diastolic (congestive) heart failure - volume overload. Bed requested for Telemetry/MedSurg (observation). Status is Inpatient Admission. Condition is Fair. Problem is new. Symptoms have improved. UTI on Admission? No. dw
[2019-01-12] MEDS ORDERED: FUROSEMIDE 20 MG/ 2ML VIAL ONE (14:53)
[2019-01-12] MEDS ORDERED: SOD POLYSTYREN SUL 15 GM/60 ML UCUP ONE (14:54)
[2019-01-12] MEDS ORDERED: AMLODIPINE 5 MG TAB ONE (14:54)
[2019-01-12] MEDS ORDERED: FUROSEMIDE 40 MG/4 ML VIAL ONE (14:54)
[2019-01-12] MEDS: IPRATROPIUM BROM 0.5MG/2.5ML NEB SCH ×2 (15:22→20:00)
--- NOTE | 2019-01-12 15:59 | P.HP ---
Certification for Inpatient Patient admitted to: Observation With expected LOS: <2 Midnights Patient will require the following post-hospital care: None Practitioner: I am a practitioner with admitting privileges, knowledge of patient current condition, hospital course, and medical plan of care. Services: Services provided to patient in accordance with Admission requirements found in Title 42 Section 412.3 of the Code of Federal Regulations Patient History Date of Service: 01/12/19 Reason for admission: Missed dialysis History of Present Illness: Patient is 63 years of age has missed dialysis for the past couple of weeks there was slight the worsening shortness breath and waited blood pressure per and has a chronic persistent cough denies any fever or chills Allergies Corticosteroids (Glucocorticoids) Allergy (Verified 03/13/18 00:59) Anaphylaxis Home Medications: Bumetanide [Bumex] 2 mg PO DAILY 03/13/18 Carvedilol [Coreg*] 12.5 mg PO BID 03/13/18 Gabapentin 300 mg PO BEDTIME 03/13/18 Pantoprazole Sodium [Protonix] 40 mg PO DAILY 03/13/18 Spironolactone [Aldactone] 50 mg PO DAILY 03/13/18 Hydralazine [Apresoline*] 100 mg PO TID 30 Days #90 tab 03/14/18 Sulfamethoxazole/Trimethoprim [Bactrim Ds Tablet] 1 each PO BID #10 tablet 03/15 - Past Medical/Surgical History Diabetic: Yes -: HTN -: IDDM -: Arthritis -: high cholesterol -: cva- 2014 -: anemia -: drug abuse -: colonoscopy -: EGD - Family History Father -: Heart disease Notes: NO REAL HISTORY IS KNOWN OTHER THAN WHAT WAS TOLD TO HIM Mother -: Cancer Notes: NO REAL HISTORY KNOWN OTHER THAN WHAT WAS TOLD TO HIM - Social History Alcohol use: No CD- Drugs: Yes Caffeine use: Yes Review of Systems 10-point ROS is otherwise unremarkable General: Weakness Respiratory: Cough, Shortness of Breath Physical Examination - Physical Exam General: Alert, Oriented x3 HEENT: Atraumatic Neck: Supple Respiratory: Clear to auscultation bilaterally, Diminished Cardiovascular: No edema, Normal pulses Gastrointestinal: Normal bowel sounds, Soft and benign, Non-distended Musculoskeletal: No clubbing, No swelling Integumentary: No rashes, No breakdown - Studies Laboratory Data (last 24 hrs) 01/12/19 13:35: PT 12.0, INR 1.02 01/12/19 13:35: WBC 6.7, Hgb 9.9 L, Hct 31.6 L, Plt Count 146 L 01/12/19 13:35: Sodium 144, Potassium 5.1, BUN 44 H, Creatinine 5.11 H*, Glucose 106, Magnesium 1.9, Total Bilirubin 0.2, AST 30, ALT 25, Alkaline Phosphatase 59 Assessment and Plan - Problems (Diagnosis) (1) Missed dialysis Current Visit: Yes Status: Acute Plan: Patient is 63 years of age. He has missed dialysis for the past 2 weeks admitted to the hospital for evaluation laboratory so far is nondiagnostic no evidence of an infection is chest x-rays clear patient's blood pressure is little elevated oxygenation is satisfactory will Consult nephrology hepatitis profile he is on a PPI for cough will trial of Atrovent currently patient is allergic to steroids - Advance Directives Does patient have a Living Will: No Does patient have a Durable POA for Healthcare: No
[2019-01-12] MEDS: INSULIN -REGULAR HUMAN 50 UNIT/0.5 ML ML SQ SCH ×2 (16:30→21:00)
[2019-01-12 17:26] VITALS: BMI 24.5
[2019-01-12] MEDS: AMLODIPINE 10 MG TAB PO SCH (17:48)
[2019-01-12] MEDS ORDERED: NA CHLORIDE 0.9% 1,000 ML IV PRN (18:05)
[2019-01-12] MEDS ORDERED: ALBUMIN HUMAN 25% 50 ML IV SCH (19:00)
[2019-01-12] MEDS ORDERED: HYDRALAZINE HCL 20 MG/ML VIAL IV PRN (22:21)
[2019-01-13] MEDS: IPRATROPIUM BROM 0.5MG/2.5ML NEB SCH ×2 (01:57→07:50)
[2019-01-13 04:57] LABS: Absolute Lymphocytes (CBC) 0.9 K/uL (0.7-4.9); Basophils % 0.8 % (0-1.3); Hematocrit 29.3 % (39.6-49.0); Lymphocytes % 13.4 % (15.3-44.8); MPV 9.7 fL (7.6-11.3); RBC Red Blood Cell Count 3.36 M/uL (4.33-5.43)
[2019-01-13 05:11] LABS: Albumin 3.3 g/dL (3.4-5.0); Bilirubin Total 0.1 mg/dL (0.2-1.0); Potassium 4.7 mmol/L (3.5-5.1); Protein, Total 6.9 g/dL (6.4-8.2)
[2019-01-13 05:32] VITALS: O2SAT 99
[2019-01-13] MEDS: INSULIN -REGULAR HUMAN 50 UNIT/0.5 ML ML SQ SCH ×2 (07:30→11:30)
[2019-01-13] MEDS: PANTOPRAZOLE 40MG TABLET PO SCH (07:56)
[2019-01-13] MEDS: AMLODIPINE 10 MG TAB PO SCH (07:56)
[2019-01-13] MEDS ORDERED: GABAPENTIN 100 MG CAP PO SCH (09:00)
[2019-01-13] MEDS ORDERED: GABAPENTIN 300 MG CAP PO SCH (09:00)
[2019-01-13] MEDS ORDERED: CARVEDILOL 12.5 MG TAB PO SCH (09:00)
[2019-01-13 11:49] VITALS: BP 155/74; TEMP 97.9
--- NOTE | 2019-01-13 13:53 | CON ---
Date of Consultation: 01/13/2019 Reason For Consultation: Elevated BUN and creatinine, hypertension, end-stage renal disease, over vo lume. 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 Again, patient poor has compliance. The patient came to the hospital complaining from fatigue and weakness. Denied any nausea, any vomiting. No fever or chills. Past Medical History: 1.Diabetes complicated with neuropathy/nephropathy. 2.End-stage renal disease secondary to light chain disease confirmed with biopsy. 3.Hep C. 4.Cocaine. 5.Cirrhosis. 6.Congestive heart failure. Allergies: STEROIDS. Past Surgical History: PermCath placement, and kidney biopsy. Review of Systems: Head and Neck: No red eye. No ear pain. GI: Has nausea, no vomiting. : No polyuria, no dysuria, no hematuria. Quality Eng: Not applicable. Respiratory: No shortness of breath. Cardiovascular: Has leg swelling. Endocrine: No polydipsia. Skin: No rash. Neuro: Has neuropathy. Musculoskeletal: No joint pain. Skin: No rash. Home Medications: Aldactone, pantoprazole, hydralazine, gabapentin, carvedilol, and Bumex. Current Medications: Norvasc, carvedilol, gabapentin, hydralazine and pantoprazole. Physical Examination: Vital Signs: When I saw the patient, blood pressure of 162/78, pulse of 76. Chest: Clear to auscultation. Heart: S1, S2. Systolic murmur. Abdomen: Soft, nontender. Extremities: +1 edema. Neurologic: Alert, oriented x3, nonfocal. Laboratory Data: WBC 6.6, H and H 9.4/29.3, platelets 126. Sodium of 142, potassium 4.7, bicarb 23. On admission, bicarb 19, BUN 31, creatinine 3.7, calcium 7.8. Assessment And Plan: 1.End-stage renal disease with over volume, missed dialysis because of poor compliant with acidosis. We took the patient to dialysis yesterday, tolerated the dialysis. The patient currently on room a ir. 2.Acidosis secondary to renal failure secondary to missed dialysis, recovered, resolved after dialys is. 3.Hypertension, controlled. We will follow up the patient as outpatient. 4.Cirrhosis, diabetes, as by primary. 5.Patient cleared from the renal standpoint for discharge planning. We will follow up the patient a s outpatient. ROMAN Voice ID: [id number] Report ID: [id number]
--- NOTE | 2019-01-13 17:38 | EKG ---
Test Date: 2019-01-12 Test Time: 14:02:21 Middle School Teacher: ROSIE MEASUREMENT RESULTS: Intervals: Rate: 65 TN: 186 QRSD: 82 QT: 452 QTc: 470 Jamison: P: 36 TN: 186 QRS: -43 T: 57 INTERPRETIVE STATEMENTS: Normal sinus rhythm Left axis deviation Septal infarct, age undetermined Abnormal ECG Compared to ECG 03/14/2018 15:17:28 Myocardial infarct finding now present Prolonged QT interval no longer present Electronically Signed On 01-13-19 17:35:15 CDT by Ruperto Alvarado
--- NOTE | 2019-01-14 02:31 | DS ---
Date of Discharge: 01/13/2019 Consultants: Dr. Cruz with Nephrology. Discharge Diagnoses: 1. Shortness of breath secondary to volume overload and missed dialysis, improved. 2. End-stage renal disease, on hemodialysis, stable. 3. Noncompliance, intentional. 4. Essential hypertension, stable. 5. Diabetes mellitus type 2, non-insulin requiring, stable. 6. Generalized osteoarthritis, stable. 7. Hyperlipidemia, stable. 8. History of cerebrovascular accident. 9. Anemia of chronic disease. Hospital Course: Patient is a 63-year-old male with past medical history of CVA ; end-stage renal disease, on hemodialysis; diabetes, who has not had dialysis for the past couple of weeks, comes in with persistent cough. No fevers or chills. Chest x-ray did not show any infiltrate. Patient states that he does have a mass on his lung. We had recent PET scan in August, which did not show any malignancy. Patient follows with Oncology as outpatient. Patient was started on dialysis, improved. Shortness of breath was better. Patient was then cleared for discharge from Nephrology standpoint. He was able to ambulate without difficulty. His labs improved. Physical Examination: General: Awake, alert, oriented, no acute distress. CV: S1, S2. No murmurs. Respiratory: Moving air well bilaterally. No wheezing. Gastrointestinal: Abdomen is soft, nontender, nondistended. Positive bowel sounds. Extremities: No clubbing, cyanosis, edema. Neurologic: Nonfocal. Discharge Condition: Stable. Activity: As tolerated. Ambulate with assist. Diet: Renal. Followup: Follow up with primary care physician in 2-3 days. Follow up with contemporary or modern dancer, Dr. Cruz, in 2 weeks. Return to ER for worsening condition. Keep dialysis appointments. Total time spent discharging the patient was 30 minutes. TIMOTHY Voice ID: [id number] Report ID: [id number] KATIE
[2019-01-15 13:20] LABS: HBsAG Nonreactive (Nonreactive)
[2019-01-16 17:20] LABS: Hep C Virus RNA (PCR)log 5.66 log IU/mL
== END 2019-01-13 12:55 | disposition home or self-care (01) ==
LOC: ER 13:21 → SUPCPDRO 13:21 → ERHOLD 16:09 → 2ND 17:00
PROVIDERS: ADMIT Internal Medicine Sleep Medicine; ATTEND Internal Medicine Sleep Medicine
PROC: 5A1D70Z Performance of Urinary Filtration, Intermittent, Less than 6 Hours Per Day (ICD-10-PCS; principal; 2019-01-12)
DX: I13.2 Hypertensive heart and chronic kidney disease with heart failure and with stage 5 chronic kidney disease, or end stage renal disease (principal); E78.00 Pure hypercholesterolemia, unspecified; E11.22 Type 2 diabetes mellitus with diabetic chronic kidney disease; N18.6 End stage renal disease; M15.9 Polyosteoarthritis, unspecified; E78.5 Hyperlipidemia, unspecified; D63.8 Anemia in other chronic diseases classified elsewhere; I50.9 Heart failure, unspecified; E87.2 Acidosis; K74.60 Unspecified cirrhosis of liver; Z99.2 Dependence on renal dialysis; Z91.15 Patient's noncompliance with renal dialysis; Z86.73 Personal history of transient ischemic attack (TIA), and cerebral infarction without residual deficits
CPT/HCPCS: 93005; 85025 ×2; 80048; 36415; 83735; 85610; 82962 ×3; 80076; 84484; 80053; 86704; 83880; 86706; 87522; 80074; 71045; 90935 ×2; 96374; 99285; J0360; J1940 ×2; J1644; J7030; G0378 ×2

== ENCOUNTER 2019-04-25 13:27 | Inpatient (IN) | payer OTHER ==
--- NOTE | 2019-04-25 14:28 | ER ---
Nurse's Notes [facility] Name: Billy Trejo Age: 63 yrs Sex: Male : 1955 Arrival Date: 04/25/2019 Time: 13:30 Bed 8 Private MD: Diagnosis: Weakness;Dyspnea;End stage renal disease-on HD;Anemia, unspecified Presentation: 04/25 13:32 Presenting complaint: EMS states: pt has missed dialysis X 8 days, c/o dizziness, iw weakness, edema. Transition of care: patient was not received from another setting of care. Onset of symptoms was April 25, 2019. Risk Assessment: Do you want to hurt yourself or someone else? Patient reports no desire to harm self or others. Initial Sepsis Screen: Does the patient meet any 2 criteria? No. Patient's initial sepsis screen is negative. Does the patient have a suspected source of infection? No. Patient's initial sepsis screen is negative. 13:32 Method Of Arrival: EMS: [facility] iw 13:32 Acuity: BRAD 3 iw 13:34 Care prior to arrival: Glucose check: 74. iw Triage Assessment: 14:15 General: Appears in no apparent distress. Behavior is drowsy. vc 14:15 Pain: Denies pain. vc Historical: - Allergies: 14:15 Corticosteroids (Glucocorticoids); vc - PMHx: 14:15 "spot on lung"; Anemia; CHF; Arthritis; CVA; Diabetes - IDDM; Dialysis; M,W,F; GERD; GI vc Bleed; Hypertension; High Cholesterol; Pneumonia; - PSHx: 14:15 None; vc - Immunization history:: Adult Immunizations unknown. - Social history:: Smoking status: Patient/guardian denies using tobacco. - Family history:: not pertinent. - Ebola Screening: : No symptoms or risks identified at this time. Screenin:15 Abuse screen: Denies threats or abuse. vc 14:15 Nutritional screening: No deficits noted. Tuberculosis screening: No symptoms or risk vc factors identified. Fall Risk Secondary diagnosis (15 points) CVA, IV access (20 points). Total Jo Fall Scale indicates Low Risk Score (25-44 pts). Fall prevention measures have been instituted. Side Rails Up X 2 Frequent Obs/Assesments occuring. Assessment: 14:00 General: Appears distressed, uncomfortable, Behavior is drowsy. Pain: Denies pain. vc Neuro: Level of Consciousness is obeys commands, lethargic, Oriented to person, place. Cardiovascular: Capillary refill < 3 seconds JVD is present. Respiratory: Airway is patent Trachea midline Respiratory effort is even, unlabored. GI: No signs and/or symptoms were reported involving the gastrointestinal system. : Reports being a dialysis patient but still produces urine. 14:00 EENT: No signs and/or symptoms were reported regarding the EENT system. Derm: Skin is vc intact, Skin is dry, Skin is Skin temperature is cool. Musculoskeletal: Range of motion: intact in all extremities. Vital Signs: 13:30 BP 191 / 95; Pulse 68; Resp 12; Temp 98.3(TE); Pulse Ox 100% on R/A; Pain 0/10; vc 14:30 BP 192 / 96; Pulse 76; Resp 12; Pulse Ox 100% on R/A; Pain 0/10; vc 15:30 BP 184 / 96; Pulse 75; Resp 12; Pulse Ox 100% on R/A; Pain 0/10; vc 16:30 BP 175 / 73; Pulse 77; Resp 10; Pulse Ox 100% ; Pain 0/10; vc ED Course: 13:30 Patient arrived in ED. iw 13:33 Triage completed. iw 13:39 Ena Holliday RN is Primary Nurse. vc 13:40 Emerson Marsh MD is Attending Physician. alla 14:10 Arm band placed on right wrist. vc 14:10 Patient has correct armband on for positive identification. Bed in low position. Call vc light in reach. Side rails up X2. surveillance monitor on. Pulse ox on. NIBP on. Warm blanket given. 14:15 Inserted saline lock: 18 gauge in right EJ, using aseptic technique. ,using aseptic vc technique. Performed by . Blood collected. 14:26 Scottie Espana MD is Hospitalizing Provider. alla 15:50 XRAY Chest (1 view) In Process Unspecified. EDMS 17:05 Urine Drug Screen Sent. vc 17:17 Report given to MARY Thomas. vc 17:18 Urine Dipstick--Ancillary (enter results) Sent. vc 17:22 No provider procedures requiring assistance completed. Patient admitted, IV remains in vc place. Administered Medications: 15:00 Drug: Albuterol - atroVENT (3:1) (2.5 mg - 0.5 mg) 3 ml Route: Nebulizer; vc 16:00 Follow up: Response: No adverse reaction vc Outcome: 14:27 Decision to Hospitalize by Provider. alla 17:23 Admitted to Med/surg accompanied by tech, via stretcher, room 230, Report called to vc William RN 17:23 Condition: good 17:23 Discharge instructions given to patient, Instructed on the need for admit. 17:25 Patient left the ED. vc Signatures: Dispatcher [employer] EDEmerson Acuna MD MD cha Williams, Irene, RN RN Ena Elizabeth RN RN vc Corrections: (The following items were deleted from the chart) 15:40 15:32 Arm band placed on right wrist. vc vc 15:43 14:15 Inserted saline lock: 18 gauge in right EJ, using aseptic technique. Blood vc collected. vc 17:19 03:00 Albuterol - atroVENT (3:1) (2.5 mg - 0.5 mg) 3 ml Nebulizer vc vc 17:19 15:29 Response: No adverse reaction vc vc
--- NOTE | 2019-04-25 14:28 | EDPHYS ---
Physician Documentation [facility] Name: Billy Trejo Age: 63 yrs Sex: Male : 1955 Arrival Date: 04/25/2019 Time: 13:30 Bed 8 Private MD: ED Physician Emerson Marsh HPI: 04/25 14:14 This 63 yrs old Black Male presents to ER via EMS with complaints of General Weakness. alla 14:14 no dialysis in 1 week. Onset: The symptoms/episode began/occurred 1 week(s) ago. alla Severity of symptoms: At their worst the symptoms were mild in the emergency department the symptoms are unchanged. The patient has experienced similar episodes in the past, a few times. Historical: - Allergies: 14:15 Corticosteroids (Glucocorticoids); vc - PMHx: 14:15 "spot on lung"; Anemia; CHF; Arthritis; CVA; Diabetes - IDDM; Dialysis; M,W,F; GERD; GI vc Bleed; Hypertension; High Cholesterol; Pneumonia; - PSHx: 14:15 None; vc - Immunization history:: Adult Immunizations unknown. - Social history:: Smoking status: Patient/guardian denies using tobacco. - Family history:: not pertinent. - Ebola Screening: : No symptoms or risks identified at this time. ROS: 14:14 Constitutional: Negative for fever, chills, and weight loss, Eyes: Negative for injury, alla pain, redness, and discharge, ENT: Negative for injury, pain, and discharge, Neck: Negative for injury, pain, and swelling, Cardiovascular: Negative for chest pain, palpitations, and edema, Respiratory: Negative for shortness of breath, cough, wheezing, and pleuritic chest pain, Abdomen/GI: Negative for abdominal pain, nausea, vomiting, diarrhea, and constipation, Back: Negative for injury and pain, : Negative for injury, bleeding, discharge, and swelling, MS/Extremity: Negative for injury and deformity, Skin: Negative for injury, rash, and discoloration, Psych: Negative for depression, anxiety, suicide ideation, homicidal ideation, and hallucinations, Allergy/Immunology: Negative for hives, rash, and allergies, Endocrine: Negative for neck swelling, polydipsia, polyuria, polyphagia, and marked weight changes, Hematologic/Lymphatic: Negative for swollen nodes, abnormal bleeding, and unusual bruising. 14:14 Neuro: Positive for weakness. Exam: 14:14 Constitutional: This is a well developed, well nourished patient who is awake, alert, alla and in no acute distress. Head/Face: Normocephalic, atraumatic. Eyes: Pupils equal round and reactive to light, extra-ocular motions intact. Lids and lashes normal. Conjunctiva and sclera are non-icteric and not injected. Cornea within normal limits. Periorbital areas with no swelling, redness, or edema. ENT: Nares patent. No nasal discharge, no septal abnormalities noted. Tympanic membranes are normal and external auditory canals are clear. Oropharynx with no redness, swelling, or masses, exudates, or evidence of obstruction, uvula midline. Mucous membranes moist. Neck: Trachea midline, no thyromegaly or masses palpated, and no cervical lymphadenopathy. Supple, full range of motion without nuchal rigidity, or vertebral point tenderness. No Meningismus. Chest/axilla: Normal chest wall appearance and motion. Nontender with no deformity. No lesions are appreciated. Cardiovascular: Regular rate and rhythm with a normal S1 and S2. No gallops, murmurs, or rubs. Normal PMI, no JVD. No pulse deficits. Respiratory: Lungs have equal breath sounds bilaterally, clear to auscultation and percussion. No rales, rhonchi or wheezes noted. No increased work of breathing, no retractions or nasal flaring. Abdomen/GI: Soft, non-tender, with normal bowel sounds. No distension or tympany. No guarding or rebound. No evidence of tenderness throughout. Back: No spinal tenderness. No costovertebral tenderness. Full range of motion. Skin: Warm, dry with normal turgor. Normal color with no rashes, no lesions, and no evidence of cellulitis. MS/ Extremity: Pulses equal, no cyanosis. Neurovascular intact. Full, normal range of motion. Neuro: Awake and alert, GCS 15, oriented to person, place, time, and situation. Cranial nerves II-XII grossly intact. Motor strength 5/5 in all extremities. Sensory grossly intact. Cerebellar exam normal. Normal gait. Psych: Awake, alert, with orientation to person, place and time. Behavior, mood, and affect are within normal limits. Vital Signs: 13:30 BP 191 / 95; Pulse 68; Resp 12; Temp 98.3(TE); Pulse Ox 100% on R/A; Pain 0/10; vc 14:30 BP 192 / 96; Pulse 76; Resp 12; Pulse Ox 100% on R/A; Pain 0/10; vc 15:30 BP 184 / 96; Pulse 75; Resp 12; Pulse Ox 100% on R/A; Pain 0/10; vc 16:30 BP 175 / 73; Pulse 77; Resp 10; Pulse Ox 100% ; Pain 0/10; vc Procedures: 14:16 Peripheral line: by aseptic technique a peripheral line was placed in the left external alla jugular vein. MDM: 13:40 Patient medically screened. [facility] 14:16 Data reviewed: vital signs, nurses notes, lab test result(s), EKG, radiologic studies, [facility] plain films. 04/25 14:12 Order name: Basic Metabolic Panel; Complete Time: 15:36 [facility] 04/25 14:12 Order name: CBC with Diff; Complete Time: 15:36 [facility] 04/25 14:12 Order name: LFT's; Complete Time: 15:36 [facility] 04/25 14:12 Order name: Magnesium; Complete Time: 15:36 [facility] 04/25 14:12 Order name: NT PRO-BNP; Complete Time: 15:36 [facility] 04/25 14:12 Order name: PT-INR; Complete Time: 15:36 [facility] 04/25 14:12 Order name: Troponin (emerg Dept Use Only); Complete Time: 15:36 [facility] 04/25 14:14 Order name: ETOH Level; Complete Time: 15:36 [facility] 04/25 14:14 Order name: Salicylate; Complete Time: 15:36 [facility] 04/25 14:14 Order name: Urine Drug Screen [facility] 04/25 14:35 Order name: PTT, Activated Partial Thromb; Complete Time: 15:36 EDMS 04/25 14:12 Order name: XRAY Chest (1 view) [facility] 04/25 14:12 Order name: EKG; Complete Time: 14:13 [facility] 04/25 14:12 Order name: Cardiac monitoring; Complete Time: 14:14 [facility] 04/25 14:12 Order name: EKG - Nurse/Tech; Complete Time: 14:14 [facility] 04/25 14:12 Order name: IV Saline Lock; Complete Time: 14:14 [facility] 04/25 14:12 Order name: Labs collected and sent; Complete Time: 14:48 [facility] 04/25 14:12 Order name: O2 Per Protocol; Complete Time: 14:48 [facility] 04/25 14:12 Order name: O2 Sat Monitoring; Complete Time: 14:48 [facility] 04/25 14:12 Order name: Urine Dipstick-Ancillary (obtain specimen); Complete Time: 16:46 [facility] 04/25 14:38 Order name: Acetaminophen Level; Complete Time: 15:36 [facility] 04/25 14:38 Order name: Lipase; Complete Time: 15:36 [facility] 04/25 16:49 Order name: Urine Dipstick--Ancillary (enter results) ms Administered Medications: 15:00 Drug: Albuterol - atroVENT (3:1) (2.5 mg - 0.5 mg) 3 ml Route: Nebulizer; vc 16:00 Follow up: Response: No adverse reaction vc Disposition: 04/25/19 14:27 Hospitalization ordered by Scottie Espana for Inpatient Admission. Preliminary diagnosis are Weakness, Dyspnea, End stage renal disease - on HD, Anemia, unspecified. - Bed requested for Telemetry/MedSurg (Inpatient). - Status is Inpatient Admission. vc - Condition is Fair. - Problem is new. - Symptoms have improved. UTI on Admission? No Signatures: Dispatcher [employer] Emerson Acuna MD MD cha Villarreal, Maria ms Calcote, Vanessa, RN RN vc Corrections: (The following items were deleted from the chart) 14:35 14:15 PTT, ACTIVATED+COAG.LAB.BRZ ordered. [facility] 14:38 14:15 LIPASE+C.LAB.BRZ ordered. [facility] 14:38 14:15 ACETAMINOPHEN+C.LAB.BRZ ordered. [facility] 15:36 14:27 Hospitalization Ordered by Scottie Espana MD for Inpatient Admission. Preliminary [facility] diagnosis is Weakness; Dyspnea; End stage renal disease - on HD. Bed requested for Telemetry/MedSurg (Inpatient). Status is Inpatient Admission. Condition is Fair. Problem is new. Symptoms have improved. UTI on Admission? No. [facility] 16:06 15:36 04/25/2019 14:27 Hospitalization Ordered by Scottie Espana MD for Inpatient ms Admission. Preliminary diagnosis is Weakness; Dyspnea; End stage renal disease - on HD; Anemia, unspecified. Bed requested for Telemetry/MedSurg (Inpatient). Status is Inpatient Admission. Condition is Fair. Problem is new. Symptoms have improved. UTI on Admission? No. alla 17:25 16:06 04/25/2019 14:27 Hospitalization Ordered by Scottie Espana MD for Inpatient vc Admission. Preliminary diagnosis is Weakness; Dyspnea; End stage renal disease - on HD; Anemia, unspecified. Bed requested for Telemetry/MedSurg (Inpatient). Status is Inpatient Admission. Condition is Fair. Problem is new. Symptoms have improved. UTI on Admission? No. ms
[2019-04-25 14:47] LABS: Absolute Lymphocytes (CBC) 0.6 K/uL (0.7-4.9); Basophils % 0.7 % (0-1.3); Lymphocytes % 7.1 % (15.3-44.8); MPV 9.2 fL (7.6-11.3); RBC Red Blood Cell Count 3.13 M/uL (4.33-5.43)
[2019-04-25 14:49] LABS: Protime INR 1.11
[2019-04-25] MEDS ORDERED: ALBUTEROL 2.5 MG/3 ML NEB SOL ONE ×2 (14:58→15:29)
[2019-04-25] MEDS ORDERED: IPRATROPIUM BROM 0.5MG/2.5ML ONE ×2 (14:58→15:29)
[2019-04-25 15:08] LABS: ALT/SGPT 32 U/L (12-78); Albumin 3.3 g/dL (3.4-5.0); Alkaline Phosphatase 64 U/L (45-117); BUN Blood Urea Nitrogen 66 mg/dL (7-18); Bicarbonate 20 mmol/L (21-32); Bilirubin Direct 0.1 mg/dL (0-0.2); Bilirubin Total 0.3 mg/dL (0.2-1.0); Glucose Level 109 mg/dL (74-106); Lipase 172 U/L (73-393); Magnesium 2.1 mg/dL (1.8-2.4); NT PRO-BNP 2997 pg/mL (<125); Potassium 4.7 mmol/L (3.5-5.1); Sodium Level 141 mmol/L (136-145); Troponin (Emerg Dept Use Only) 0.02 ng/mL (0.0-0.045)
[2019-04-25 15:12] LABS: AST/SGOT < 3 U/L (15-37)
--- NOTE | 2019-04-25 16:34 | RAD REPORT ---
EXAM DESCRIPTION: RAD - Chest Single View - 04/25/2019 3:48 pm CLINICAL HISTORY: COUGH Chest pain. COMPARISON: Chest Single View dated 01/12/2019; Chest Single View dated 03/10/2018; Chest Single View dated 02/20/2018; Chest Single View dated 02/14/2018 FINDINGS: Portable technique limits examination quality. Mild interstitial pulmonary edema. The heart is upper limit of normal in size. No displaced fractures .Right-sided venous catheter tip in the SVC.
[2019-04-25 17:33] LABS: Urine Blood 1+ (NEG); Urine Glucose NEGATIVE (NEG); Urine Protein 2+ (NEG); Urine pH 6.5 (5.0-7.0)
[2019-04-25 17:49] LABS: Barbiturates NEGATIVE (NEGATIVE); Benzodiazepines NEGATIVE (NEGATIVE); Cocaine POSITIVE (NEGATIVE); METHAMPHETAM NEGATIVE (NEGATIVE); Methadone NEGATIVE (NEGATIVE); Opiates NEGATIVE (NEGATIVE); Phencyclidine NEGATIVE (NEGATIVE); THC Cannibis POSITIVE (NEGATIVE)
[2019-04-25] MEDS ORDERED: ONDANSETRON 4 MG/2 ML VIAL IV PRN (18:03)
[2019-04-25] MEDS ORDERED: GLUCAGON 1 MG/VIAL IM PRN (18:03)
[2019-04-25] MEDS ORDERED: D50W 25 GM/50 ML SYRINGE/VIAL IV PRN (18:03)
[2019-04-25] MEDS: INSULIN -REGULAR HUMAN 50 UNIT/0.5 ML ML SQ SCH ×2 (18:03→21:00)
--- NOTE | 2019-04-25 18:47 | EKG ---
Test Date: 2019-04-25 Test Time: 13:44:59 Head Athletic Trainer: MAGUI MEASUREMENT RESULTS: Intervals: Rate: 66 MN: 186 QRSD: 96 QT: 432 QTc: 452 Lewis: P: 64 MN: 186 QRS: -46 T: 72 INTERPRETIVE STATEMENTS: Normal sinus rhythm Left anterior fascicular block Abnormal ECG Compared to ECG 01/12/2019 14:02:21 Left anterior fascicular block now present Left-axis deviation no longer present Myocardial infarct finding no longer present Electronically Signed On 04-25-19 18:47:04 IMPORT AND EXPORT CLERK by Ruperto Alvarado
--- NOTE | 2019-04-25 23:34 | HP ---
Date of Admission: 04/25/2019 Chief Complaint: Shortness of breath, generalized weakness. Primary Care Physician: Gerardo Farias M.D. Consultants: Dr. Cruz with Nephrology. History Of Present Illness: Patient is a 63-year-old male with past medical history of end-stage robyn al disease, on hemodialysis; hypertension; diabetes; arthritis; hyperlipidemia; history of CVA; anemi a, comes in with shortness of breath, generalized weakness, ongoing for the past couple of weeks. Phuc godfreylauren does report missing dialysis. Patient appears very lethargic as well. Symptoms are constant, moderate, and progressively worsening. Does report some nausea. No vomiting. No fever, chills. Di fficult to obtain history as patient is still lethargic. In the ER, his workup revealed a creatinine level of 5.17, potassium was 4.7. EKG did show peaked T-waves. The patient's last dialysis was ove r a week ago goes to [facility]. Patient was then referred for admission. Past Medical History: End-stage renal disease, on dialysis; hypertension; non-insulin dependent diab etes; arthritis; hyperlipidemia; history of CVA, in 2015; chronic anemia; drug abuse. Surgical History: Colonoscopy, EGD, dialysis catheter placement. Allergies: TO CORTICOSTEROIDS. Medications: List reviewed. Social History: Patient denies any alcohol use or current tobacco use. Has had history of drugs in the past. Family History: Father has heart disease and mother has cancer. Review of Systems: Ten-point system reviewed, negative except as per HPI. Physical Examination: Vital Signs: Stable, afebrile. General: Asleep and difficult to wake up, however does respond in short sentences, goes back to slee p, ill-appearing male. HEENT: Normocephalic, atraumatic. PERRLA. EOMI. Dry mucous membranes. Oropharynx is clear. Conj unctivae are anicteric. Poor dentition. Neck: Supple. Patient has jugular venous distention. Trachea midline. CV: S1, S2. Regular rate and rhythm. Peripheral pulses present. Respiratory: Diminished, breath sounds. No wheezing or stridor. No use of accessory muscles. Gastrointestinal: Abdomen is soft, nontender, nondistended. Positive bowel sounds. No guarding or rigidity. Extremities: No clubbing or cyanosis. Patient has bilateral lower extremity edema, 1+. No calf ten derness. Neuro: Difficult to evaluate cranial nerves. However, there is no focal neurological deficit. Spee ch is normal. Patient is lethargic, does move all 4 extremities. Skin: No rashes. Normal skin turgor. Psych: Deferred. Laboratory Data: UDS negative alcohol level. Acetaminophen level less than 2. Salicylate less than 1.7. Remainder is pending. Sodium 141, potassium 4.7, chloride 115, CO2 20, BUN 66, creatinine 5.1 7, glucose 109, calcium 7.8, magnesium 2.1. Troponin less than 0.02. BNP 2997. Albumin 3.3. Lipas e 172. INR 1.11. WBC 8.7, H and H 8.7 and 27, platelets 145, neutrophils 80%. Chest x-ray, no official report personally reviewed shows vascular congestion, catheter in place. Assessment: A 63-year-old male with, 1.Generalized weakness, likely secondary to missed dialysis. 2.Shortness of breath secondary to volume overload, secondary to missed dialysis. 3.End-stage renal disease, on hemodialysis. Follows with Dr. Fierro and Diego. The patient's la st dialysis was over a week ago. We will consult Nephrology. Monitor creatinine level. Initiate di alysis. The patient's electrolytes are okay; however, does have peaked T-waves on EKG. Potassium is 4.7. We will continue to monitor. 4.Noncompliance, intentional. We will job counselor once patient is more awake. 5.Essential hypertension. We will resume home medications. 6.Diabetes mellitus type 2, ves-lwuusnb-tphevwihp with hyperglycemia and end-stage renal disease. W e will start on sliding scale insulin and monitor blood glucose levels. 7.Generalized osteoarthritis, stable. 8.Mixed hyperlipidemia. We will continue home medications. 9.History of cerebrovascular accident. 10.Anemia of chronic disease. We will continue to monitor H and H, transfuse for hemoglobin less th an 7. Plan: Admit patient to Med-Surg, place as inpatient. Length of stay greater than 2 midnights. TIMOTHY Voice ID: [id number]
[2019-04-26] MEDS: HYDRALAZINE HCL 20 MG/ML VIAL IV PRN ×2 (01:42→08:32)
[2019-04-26 05:07] LABS: Absolute Lymphocytes (CBC) 0.6 K/uL (0.7-4.9); Basophils % 0.4 % (0-1.3); Hematocrit 27.6 % (39.6-49.0); Lymphocytes % 6.1 % (15.3-44.8); MPV 8.8 fL (7.6-11.3); RBC Red Blood Cell Count 3.19 M/uL (4.33-5.43)
[2019-04-26 05:21] LABS: Albumin 3.1 g/dL (3.4-5.0); Bilirubin Total 0.2 mg/dL (0.2-1.0); Magnesium 2.2 mg/dL (1.8-2.4); Phosphorus 5.4 mg/dL (2.5-4.9); Protein, Total 6.6 g/dL (6.4-8.2)
[2019-04-26 05:26] VITALS: BMI 24.9
[2019-04-26] MEDS ORDERED: LOPERAMIDE HCL 2 MG CAPSULE PO SCH (05:40)
[2019-04-26] MEDS ORDERED: LOPERAMIDE HCL 2 MG CAPSULE PO PRN (05:42)
[2019-04-26] MEDS: INSULIN -REGULAR HUMAN 50 UNIT/0.5 ML ML SQ SCH ×4 (07:30→21:00)
[2019-04-26] MEDS ORDERED: SEVELAMER CARBONATE 800 MG TABLET PO SCH (12:00)
[2019-04-26] MEDS ORDERED: NA CHLORIDE 0.9% 1,000 ML IV PRN (12:16)
[2019-04-26] MEDS ORDERED: ALBUMIN HUMAN 25% 50 ML IV SCH (13:00)
[2019-04-26] MEDS: HYDRALAZINE HCL 25 MG TABLET PO SCH ×2 (14:00→21:58)
[2019-04-26] MEDS: GABAPENTIN 300 MG CAP PO SCH ×2 (14:09→21:58)
[2019-04-26] MEDS: ACETAMINOPHEN 500 MG TAB PO PRN (14:09)
--- NOTE | 2019-04-26 14:32 | PN ---
Date of Progress Note: 04/26/2019 Subjective: Patient seen and examined. Chart reviewed and case discussed with RN. Patient is still complaining of some generalized malaise, nausea, and shortness of breath. Has not gone for dialysis as of yet. Medications: List reviewed. Physical Examination: Vital Signs: Temperature 97.5, heart rate 80, blood pressure 221/101, respirations 18, O2 100% on ro om air. General: Awake, alert, oriented x3, in some mild distress. CV: S1, S2. Regular rate and rhythm. Peripheral pulses present. Respiratory: Diminished breath sounds. No wheezing or stridor. Gastrointestinal: Abdomen is soft, nontender, nondistended. Positive bowel sounds. Extremities: No clubbing, cyanosis. Patient has pedal edema. NEUROLOGIC: Cranial nerves 2 through 12 intact grossly. No focal neurological deficit. Speech is n ormal. Laboratory Data: Sodium 145, potassium 5, chloride 118, CO2 of 21, BUN 65, creatinine 5.24, glucose 102, calcium 7.9, phosphorus 5.4, magnesium 2.2, albumin 3.1. WBC 9, H and H 9.2 and 27.6, platelets 146. Assessment: 63-year-old male with; 1.Generalized weakness likely secondary to electrolyte abnormalities and missed dialysis. 2.Generalized malaise secondary to missed dialysis. 3.Shortness of breath secondary to volume overload from end-stage renal disease. 4.End-stage renal disease, on hemodialysis. Nephrology has been consulted. Will need to be dialyze d today. Patient does have some electrolyte abnormalities and EKG changes. We will continue to [facility]. 5.Hyperphosphatemia. 6.Noncompliance, intentional. Counseled. 7.Accelerated hypertension, uncontrolled. Systolic blood pressure in the 220s. We will give hydral azine p.r.n. Patient needs to have fluid taken off. 8.Diabetes mellitus type 2, vdo-ljtgweh-ivdmyvrek with hyperglycemia and end-stage renal disease. W e will continue with sliding scale insulin and monitor blood glucose levels. 9.Generalized osteoarthritis. Stable. 10.Mixed hyperlipidemia. We will continue home medications. 11.History of cerebrovascular accident. 12.Anemia of chronic disease. H and H are stable. We will continue to monitor and transfuse if nee ded. 13.Deep venous thrombosis prophylaxis, addressed. Plan: Dialysis today. SA/MODL Voice ID: [id number] Report ID: [id number]
--- NOTE | 2019-04-26 16:38 | CON ---
Date of Consultation: 04/26/2019 Reason For Consultation: Elevated BUN and creatinine, end-stage renal disease, hypertension, over vo lume, encephalopathy. History Of Present Illness: This is a pleasant 63-year-old gentleman, well known to me from the dial ysis and from the office with significant past medical history of end-stage renal disease secondary t o hypertension, nephrosclerosis/diabetes nephropathy; diabetes complicated with neuropathy and nephro lynne, nephrotic-range proteinuria; hep C; cocaine use; cirrhosis; congestive heart failure. Patient was started on dialysis back in 2018. Lately, patient has been skipping dialysis frequently. Barbara aguilar was homeless couple of months ago. Patient this time missed dialysis for almost a week. Came fee ling weak, lethargic, nausea without any vomiting. Found to have elevated BUN and creatinine, found to be over volume with blood pressure above 200. For that reason, patient was admitted and we have vladimir montoya consulted. Patient denied taking any nonsteroidal. No change in his medication. Past Medical History: 1.Hep C complicated with cirrhosis. 2.Cocaine use. 3.Congestive heart failure. 4.Diabetes complicated with neuropathy and nephropathy. 5.End-stage renal disease, on hemodialysis secondary to light chain disease confirmed with biopsy, p oor compliant. Allergies: STEROIDS. Past Surgical History: PermCath placement, kidney biopsy. Review of Systems: Head and Neck: No red eye. No ear pain. Has headache. GI: Has nausea. No vomiting. : No polyuria, no dysuria, no hematuria. Clinical Informatics Physician: Not applicable. Respiratory: Has shortness of breath. Cardiovascular: No chest pain. Endocrine: No polydipsia. Skin: No rash. Neuro: Has neuropathy. Musculoskeletal: No joint pain. Medications: Home medications include carvedilol, spironolactone, Renvela, pantoprazole, Reglan, hyd ralazine, gabapentin, and Bumex. Current medications in the hospital include hydralazine, Zofran. Physical Examination: General: When I saw the patient, patient lying in bed. Vital Signs: Blood pressure 175/82, pulse of 85. Chest: Clear to auscultation. Heart: S1, S2. Systolic murmur. Abdomen: Soft, nontender. Extremities: Trace edema. Neurologic: Alert, sleepy. No focal. Laboratory Data: WBC 9, H and H 9.2/27.6, platelet 146. Sodium 145, potassium 5, bicarb 21, BUN 65, creatinine 5.2, calcium 7.9. Magnesium 2.2. Assessment And Plan: 1.End-stage renal disease with encephalopathy secondary possible to uremic. I am going to go ahead and arrange for dialysis today and tomorrow, and we will follow up the patient. We are not going to use any heparin with the dialysis given the significant hypertension. 2.Hypertension secondary to missing medication. I am going to resume carvedilol, hydralazine, and w e will monitor the patient post dialysis. I am going to start the patient on lisinopril. 3.Nephrotic-range proteinuria. We will start the patient on the lisinopril. Continue spironolacton e. 4.Hyperkalemia secondary to missing dialysis. Patient is going to be dialyzed on low-potassium bath . 5.Encephalopathy secondary to uremia, hypertension. We will follow up after dialysis. We will dial yze today and tomorrow. 6.Diabetes as by primary. 7.Secondary hyperparathyroidism. Resume Renvela. 8.Anemia of chronic kidney disease. Given the uncontrolled blood pressure, we will hold on adding E SA for the time being. Thank you, Dr. Espana, for allowing us to participate in the care of your patient. ROMAN Voice ID: [id number] Report ID: [id number]
[2019-04-26 20:44] VITALS: O2SAT 98
[2019-04-26] MEDS ORDERED: ZOLPIDEM TARTRATE 10 MG TABLET PO SCH (21:00)
[2019-04-26] MEDS: carvediloL 12.5 MG TAB PO SCH (21:58)
[2019-04-27 06:28] LABS: Absolute Lymphocytes (CBC) 0.9 K/uL (0.7-4.9); Basophils % 0.4 % (0-1.3); Hematocrit 30.6 % (39.6-49.0); Lymphocytes % 9.4 % (15.3-44.8); RBC Red Blood Cell Count 3.56 M/uL (4.33-5.43)
[2019-04-27 06:51] LABS: Albumin 3.2 g/dL (3.4-5.0); Bilirubin Total 0.2 mg/dL (0.2-1.0); Potassium 4.8 mmol/L (3.5-5.1); Protein, Total 6.9 g/dL (6.4-8.2)
[2019-04-27] MEDS: INSULIN -REGULAR HUMAN 50 UNIT/0.5 ML ML SQ SCH ×3 (07:30→16:30)
[2019-04-27] MEDS: SPIRONOLACTONE 25 MG TABLET PO SCH ×2 (08:28→14:05)
[2019-04-27] MEDS: GABAPENTIN 300 MG CAP PO SCH ×2 (08:28→13:29)
[2019-04-27] MEDS: BUMETANIDE 1 MG TABLET PO SCH ×2 (08:29→14:04)
[2019-04-27] MEDS: lisinopriL 10 MG TAB PO SCH ×2 (08:29→17:00)
[2019-04-27] MEDS: carvediloL 12.5 MG TAB PO SCH ×2 (08:29→16:59)
[2019-04-27] MEDS: HYDRALAZINE HCL 25 MG TABLET PO SCH ×2 (08:29→14:06)
[2019-04-27] MEDS ORDERED: PANTOPRAZOLE 40MG TABLET PO SCH (09:00)
[2019-04-27] MEDS ORDERED: HOME MED 1 EA UNK (Spironolactone [Aldactone] 50 MG) PO SCH (09:00)
[2019-04-27] MEDS ORDERED: METOCLOPRAMIDE 5 MG TAB PO SCH (09:00)
[2019-04-27] MEDS ORDERED: BUMETANIDE 1 MG PO SCH (09:00)
[2019-04-27] MEDS: ACETAMINOPHEN 500 MG TAB PO PRN ×2 (09:01→14:04)
--- NOTE | 2019-04-27 09:56 | P.PN ---
Date of Service: 04/27/19 walked into the patient room to resume care. He demanded that I leave and I am not his doctor. States I nearly killed him and he should joyce me. The patient has had a difficult life. Has struggled with drug abuse and recently been homeless. This should be taken into account with some outburst. However I will excuse myself from his care. Have discussed this with Dr. Espana who agreed to take over his care. I wish Mr Trejo the best of luck in the future.
[2019-04-27] MEDS ORDERED: SEVELAMER CARBONATE 800 MG TABLET PO PRN (13:58)
[2019-04-27 17:00] VITALS: BP 152/73
[2019-04-27] MEDS ORDERED: SEVELAMER CARBONATE 800 MG TABLET PO SCH (17:00)
[2019-04-27 17:05] VITALS: TEMP 99
--- NOTE | 2019-04-28 04:24 | DS ---
Date of Discharge: 04/27/2019 Consultants: Dr. Cruz with Nephrology. Admitting Diagnoses: 1.Generalized weakness. 2.Acute metabolic encephalopathy. 3.Shortness of breath secondary to volume overload. 4.End-stage renal disease, on hemodialysis. 5.Noncompliance, intentional. 6.Essential hypertension. 7.Diabetes mellitus type 2, cal-worctum-iqtednrfl with hyperglycemia and end-stage renal disease. 8.Generalized osteoarthritis. 9.Mixed hyperlipidemia. 10.History of cerebrovascular accident. 11.Anemia of chronic disease secondary to chronic kidney disease. Discharge Diagnoses: 1.Generalized weakness, improved. 2.Acute metabolic encephalopathy, resolved. 3.Generalized malaise, improving. 4.Shortness of breath secondary to volume overload, improved. 5.End-stage renal disease, on hemodialysis, stable. 6.Hyperphosphatemia, corrected. 7.Noncompliance, intentional, counseled. 8.Accelerated hypertension, improved. 9.Diabetes mellitus type 2, plb-uminzpu-pkyuupbdy with hyperglycemia and end-stage renal disease, st able. 10.Generalized osteoarthritis, stable. 11.Mixed hyperlipidemia, stable. 12.History of cerebrovascular accident. 13.Anemia of chronic disease, stable. 14.Polysubstance abuse with marijuana and cocaine. Hospital Course: Patient is a 63-year-old male, who has history of end-stage renal disease, is on di alysis, had not gone for the past week or so, comes in with significant amount of weakness, lethargy, altered mental status, and generalized malaise. He did have elevated creatinine level. Potassium w as 4.7. EKG showed peaked T-waves. Patient was positive for marijuana and cocaine. UDS was negativ e for alcohol. Acetaminophen level was low. Patient states that he has recently had some family pro blems and was unable to make it to his dialysis. Patient was seen by his director of academic, Dr. Cruz. Patient was dialyzed. Patient felt significantly better. Patient's PCP is listed as Dr. Farias who was contacted to resume care of his patient, however, patient then stated that he sees Dr. Arambula and service was switched back to hospitalists. Overall, patient did well during the course of the [facility] stay. He was counseled extensively regarding compliance with his dialysis and to avoid any furth er use of illicit drugs. Patient voiced understanding. He understands the risks associated with ill icit drug use and missing dialysis including worsening condition and even due to electrolyte ab normalities. Patient states he has transport available for dialysis. He did not wish to have furthe r dialysis today, therefore was cleared for discharge and will go for his routine dialysis schedule t omorrow. Medications: As per medication reconciliation list. Followup: Follow up with primary care physician in 2-3 days. Follow up with director of academic, Dr. Nila navarro in 2 weeks. Return to ER for worsening condition. Keep dialysis appointments. Diet: Renal. Activity: As tolerated. Physical Examination: General: Awake, alert, oriented x3, not in any acute distress. CV: S1, S2. Respiratory: Diminished breath sounds. No wheezing or stridor. Gastrointestinal: Abdomen is soft, nontender, nondistended. Positive bowel sounds. Extremities: No clubbing, cyanosis, or edema. Neurologic: Nonfocal. Total time spent discharging patient was 37 minutes. /ZULEIMA Voice ID: [id number] Report ID: [id number]
--- NOTE | 2019-04-28 04:40 | PN ---
Date of Progress Note: 04/27/2019 Chief Complaint: End-stage renal disease, noncompliance with outpatient dialysis schedule. Patient needs a 1 week treatment with dialysis. He has history of hepatitis C, cocaine use, cirrhosis of the liver, congestive heart failure. Patient received dialysis yesterday. He was somewhat reluctant to have dialysis. He was anxious and refused dialysis to be done today. Review of Systems: Denies fever or chills. Physical Examination: General: Not in acute distress. Normal respiratory effort. No edema. Impression And Plan: 1.Patient will have dialysis tomorrow. 2.Hypertension. Continue blood pressure medication. 3.Anemia in chronic kidney disease. Resume SCARLETT as needed. 4.Patient will continue p.o. fluid restriction and low-sodium diet. 5.Renal osteodystrophy. Monitor phosphorus level. Adjust binders. EB/MODL Voice ID: [id number] Report ID: [id number]
[2019-04-30 04:08] LABS: HBsAG Nonreactive (Nonreactive)
== END 2019-04-27 17:46 | disposition home or self-care (01) | DRG 640 ==
LOC: ER 13:27 → ERHOLD 15:41 → 2ND 17:17
PROVIDERS: ADMIT Family Medicine; ATTEND Family Medicine
PROC: 5A1D70Z Performance of Urinary Filtration, Intermittent, Less than 6 Hours Per Day (ICD-10-PCS; principal; 2019-04-26)
DX: E87.70 Fluid overload, unspecified (principal); N18.6 End stage renal disease; G93.41 Metabolic encephalopathy; N25.81 Secondary hyperparathyroidism of renal origin; I13.2 Hypertensive heart and chronic kidney disease with heart failure and with stage 5 chronic kidney disease, or end stage renal disease; R53.1 Weakness; E11.22 Type 2 diabetes mellitus with diabetic chronic kidney disease; E11.40 Type 2 diabetes mellitus with diabetic neuropathy, unspecified; E11.21 Type 2 diabetes mellitus with diabetic nephropathy; E11.65 Type 2 diabetes mellitus with hyperglycemia; I50.9 Heart failure, unspecified; F14.10 Cocaine abuse, uncomplicated; F12.10 Cannabis abuse, uncomplicated; M15.9 Polyosteoarthritis, unspecified; E83.39 Other disorders of phosphorus metabolism; E78.2 Mixed hyperlipidemia; K74.60 Unspecified cirrhosis of liver; B19.20 Unspecified viral hepatitis C without hepatic coma; D63.8 Anemia in other chronic diseases classified elsewhere; Z86.73 Personal history of transient ischemic attack (TIA), and cerebral infarction without residual deficits; Z91.15 Patient's noncompliance with renal dialysis; Z79.4 Long term (current) use of insulin; Z99.2 Dependence on renal dialysis
CPT/HCPCS: 36415; 71045; 80048; 80053; 80076; 80307; 80320; 80329; 81003; 82947; 83690; 83735; 83880; 84100; 84484; 85025; 85610; 85730; 86317; 86704; 86706; 87340; 90935; 93005; 94640; 94760; 99285; J0360; J1644

== ENCOUNTER 2019-04-30 15:18 | Emergency (ER) | payer OTHER ==
[2019-04-30] MEDS ORDERED: DIAZEPAM 2 MG TABLET ONE (16:16)
--- NOTE | 2019-04-30 16:42 | RAD REPORT ---
EXAM DESCRIPTION: RAD - Lumbar Spine 3 Views - 04/30/2019 4:35 pm CLINICAL HISTORY: Pain;Lower back pain Radiculopathy COMPARISON: LUMBAR SPINE 3 VIEWS dated 05/20/2012; LUMBAR SPINE 3 VIEWS dated 09/19/2010 FINDINGS: Vertebral body heights appear maintained. No compression fracture noted. Mild spondylosis L5-S1 with disc thinning. No spondylolysis or spondylolisthesis. IMPRESSION: Mild lower lumbar spondylosis.
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
[2019-04-30 17:56] VITALS: BP 119/60; TEMP 99.5; O2SAT 100
== END 2019-04-30 17:07 | disposition home or self-care (01) ==
LOC: ER 15:18
DX: M54.16 Radiculopathy, lumbar region (principal); S80.01XA Contusion of right knee, initial encounter; X58.XXXA Exposure to other specified factors, initial encounter; Y93.9 Activity, unspecified; Y92.818 Other transport vehicle as the place of occurrence of the external cause; Z99.2 Dependence on renal dialysis; I10 Essential (primary) hypertension; Z88.8 Allergy status to other drugs, medicaments and biological substances
CPT/HCPCS: 72100; 99283

== ENCOUNTER 2019-05-09 09:27 | Emergency (ER) | payer OTHER ==
[2019-05-09] MEDS ORDERED: DIAZEPAM 5 MG TABLET ONE (10:44)
[2019-05-09] MEDS ORDERED: ONDANSETRON 4 MG/2 ML VIAL ONE (10:45)
[2019-05-09] MEDS ORDERED: MORPHINE 4 MG/ML SYR ONE ×2 (10:45→12:38)
[2019-05-09] MEDS ORDERED: NA CHLORIDE 0.9% 1,000 ML ONE (10:45)
--- NOTE | 2019-05-09 11:04 | RAD REPORT ---
EXAM DESCRIPTION: CT - Head C Spine Cap Wo Con - 05/09/2019 10:37 am CLINICAL HISTORY: Fall, head, neck, chest and abdomen pain COMPARISON: Lumbar spine April 30, 2019, CT chest May 2018 TECHNIQUE: Axial [address] head images were obtained. Axial [address] cervical spine images were obtain ed with sagittal and coronal reconstruction images reviewed. Axial 5 mm images of the chest, abdomen and pelvis were obtained. All CT scans are performed using dose optimization technique as appropriate and may include automated exposure control or mA/KV adjustment according to patient size. FINDINGS: No intracranial hemorrhage, mass or edema. No midline shift or abnormal fluid collection. Mastoid air cells are clear. No acute paranasal sinus finding. No skull fracture. Cervical bodies are normal in height and alignment.Left-sided facet joint degenerative changes are pr esent.No fracture or acute bone finding.No disk space narrowing.No prevertebral soft tissue thickenin g or paraspinal mass.Central canal detail is inherently limited on CT imaging. CT chest shows no pneumothorax, pulmonary contusion or pleural fluid collection. Previously detailed left upper lobe mass continues to enlarge. Mass measures 30 x 20 mm on the current examination previo usly measuring 26 x 20. Scattered alveolar opacities are present in the bilateral lower lobes and pos terior right upper lobe. Stranding in the posterior gutter on the right is believed to be a combinati on of atelectasis and alveolar opacification. Double-lumen catheter on the right may indicate dialysi s patient. The alveolar opacities may be related to alveolar edema rather than pneumonia. The patient does have some mild fluid retention changes to the subcutaneous fat of the chest abdomen and pelvis is well is the peritoneal fat. No mediastinal mass or hematoma. No pericardial effusion. Aorta and pulmonary arterial tree are not fully assessed on a noncontrast study. No chest will mass or abnormal axillary finding. No displaced rib fracture or other significant bony finding. CT abdomen and pelvis show no injury to solid abdominal viscera. Cholelithiasis is evident. No biliar y tree dilatation or gallbladder dilatation. No duct stone seen. No bowel injury or significant finding. No free air, free fluid or abnormal stranding. No hernia, ma ss or bulky lymphadenopathy. No urinary bladder abnormality. No acute bone finding. Hemangioma seen in the left-side of the T11 body. Nonspecific bilateral inguin al lymph nodes are present. IMPRESSION: Further enlargement of the previously detailed spiculated mass in the left upper lung fi eld. Mass is currently 30 x 20 mm compared to a 26 x 20 mm in May. Slow-growing malignancy is fav ored given enlargement over serial imaging. No hemorrhage, edema or acute CT Head finding. No fracture or acute cervical spine finding. Additional chest findings include patchy alveolar opacities in the posterior right upper lobe and nancy ateral lower lung camp[place]. Alveolar edema or bilateral pneumonia changes are possible. Patient appears to be a dialysis patient and the alveolar opacification may be part of a mild edema/ volume overload . Patient has mild fluid retention in the fatty tissues of the chest abdomen and pelvis which may suppo rt the volume overload etiology for the lung findings. No traumatic injury to the abdomen or pelvis. No significant CT Abdomen and Pelvis finding.
[2019-05-09 11:45] LABS: Absolute Lymphocytes (CBC) 0.9 K/uL (0.7-4.9); Basophils % 0.3 % (0-1.3); Hematocrit 30.4 % (39.6-49.0); Lymphocytes % 7.1 % (15.3-44.8); MPV 9.2 fL (7.6-11.3); RBC Red Blood Cell Count 3.53 M/uL (4.33-5.43)
[2019-05-09 11:51] LABS: Potassium 4.9 mmol/L (3.5-5.1)
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
[2019-05-09] MEDS ORDERED: AZITHROMYCIN 250 MG TAB ONE (12:22)
[2019-05-09] MEDS ORDERED: D50W 25 GM/50 ML SYRINGE/VIAL IV ONE (12:23)
[2019-05-09 13:45] LABS: Barbiturates NEGATIVE (NEGATIVE); Benzodiazepines NEGATIVE (NEGATIVE); Cocaine POSITIVE (NEGATIVE); METHAMPHETAM NEGATIVE (NEGATIVE); Methadone NEGATIVE (NEGATIVE); Opiates NEGATIVE (NEGATIVE); Phencyclidine NEGATIVE (NEGATIVE); THC Cannibis POSITIVE (NEGATIVE)
[2019-05-09 14:12] LABS: Urine Blood TRACE (NEG); Urine Glucose NEGATIVE (NEG); Urine Protein 3+ (NEG); Urine pH 7.5 (5.0-7.0)
[2019-05-09 16:51] VITALS: BP 152/80; TEMP 97.5; O2SAT 99
== END 2019-05-09 16:30 | disposition home or self-care (01) ==
LOC: ER 09:27
DX: S16.1XXA Strain of muscle, fascia and tendon at neck level, initial encounter (principal); R91.1 Solitary pulmonary nodule; E11.22 Type 2 diabetes mellitus with diabetic chronic kidney disease; I12.0 Hypertensive chronic kidney disease with stage 5 chronic kidney disease or end stage renal disease; N18.6 End stage renal disease; I50.40 Unspecified combined systolic (congestive) and diastolic (congestive) heart failure; V89.2XXA Person injured in unspecified motor-vehicle accident, traffic, initial encounter; Z99.2 Dependence on renal dialysis
CPT/HCPCS: 85025; 80048; 36415; 80307 ×8; 81003; 70450; 71250; 72125; 96375; 96374; 99285; J7030; J2405

== ENCOUNTER 2019-05-25 09:11 | Inpatient (IN) | payer OTHER ==
[2019-05-25 10:02] LABS: Absolute Lymphocytes (CBC) 0.7 K/uL (0.7-4.9); Basophils % 0.4 % (0-1.3); Hematocrit 29.3 % (39.6-49.0); Lymphocytes % 5.3 % (15.3-44.8); MPV 7.9 fL (7.6-11.3)
--- NOTE | 2019-05-25 10:21 | EKG ---
Test Date: 2019-05-25 Test Time: 09:19:51 [employer] Apprentice: TRENT MEASUREMENT RESULTS: Intervals: Rate: 81 MS: 162 QRSD: 88 QT: 428 QTc: 497 [place]: P: 63 MS: 162 QRS: -41 T: 59 INTERPRETIVE STATEMENTS: Normal sinus rhythm Left axis deviation Minimal voltage criteria for LVH, may be normal variant Abnormal ECG Compared to ECG 04/25/2019 13:44:59 Left-axis deviation now present Left ventricular hypertrophy now present Electronically Signed On 05-25-19 10:21:21 [employer] by Justo Fofana
[2019-05-25 10:23] LABS: Potassium 5.3 mmol/L (3.5-5.1)
[2019-05-25] MEDS ORDERED: MORPHINE 2 MG/ML SYR ONE (11:22)
[2019-05-25] MEDS ORDERED: ONDANSETRON 4 MG/2 ML VIAL ONE (11:22)
--- NOTE | 2019-05-25 11:31 | RAD REPORT ---
EXAM DESCRIPTION: RAD - Chest Single View - 05/25/2019 11:13 am CLINICAL HISTORY: Dyspnea, history of fall with right-sided chest trauma COMPARISON: April 2019, February 2018 chest films ; August 2018 PET-CT TECHNIQUE: AP portable chest image was obtained 1046 hours . FINDINGS: No pulmonary contusion or focal right-sided lung parenchymal process. There is a 18 mm irr egular density in the left upper lung field at the aortic arch level. This mass has been previously s ubjected to PET-CT assessment with no abnormal activity. Growth is not suspected during the interval. Heart and vasculature are normal. No measurable pleural effusion and no pneumothorax. No acute bony abnormality seen. No acute aortic findings suspected. IMPRESSION: No pneumothorax, pulmonary contusion or acute right chest traumatic injury. No gross rib deformity seen. Rib detail can be better assessed with the directed right-sided rib seri es. Irregular spiculated density in the left upper lung field, previously evaluated by PET imaging, has s hown no interval change.
--- NOTE | 2019-05-25 11:36 | RAD REPORT ---
EXAM DESCRIPTION: RAD - Knee Right 3 View - 05/25/2019 11:13 am CLINICAL HISTORY: Fall, knee pain COMPARISON: None. FINDINGS: Transverse fracture involves the inferior aspect of the patella. There is an approximately 2.5 centimeter fragment arising from the midline and left-side of the lower patella than has been av ulsed. Distraction is approximately 15 mm. Patella tendon still appears to be intact. Distal femur and the proximal tib-fib show no acute findings. Large joint effusion present. Anterior soft tissues are edematous. No foreign body in the soft tissue s. IMPRESSION: Right patella fracture as detailed. Joint effusion.
--- NOTE | 2019-05-25 11:50 | RAD REPORT ---
EXAM DESCRIPTION: Ribs Right - 05/25/2019 11:14 am CLINICAL HISTORY: Fall, right-sided chest and rib pain COMPARISON: None. FINDINGS: No displaced rib fractures are present. No nondisplaced rib fractures confirmed. There is slight cortical irregularity at the right fifth-seventh rib costochondral junctions. Fracture is not likely but correlation can be made with any point tenderness in these regions. No aggressive rib lesion. No underlying pneumothorax, effusion, infiltrate or pulmonary contusion. IMPRESSION: No displaced rib fracture present and no nondisplaced rib fracture confirmed. Slight cortical irregularity at the costochondral junction of the right fifth-seventh ribs probably a rtifact. Correlation can be made with any point tenderness in this region.
--- NOTE | 2019-05-25 11:56 | ER ---
Nurse's Notes [facility] Name: Billy Trejo Age: 63 yrs Sex: Male : 1955 Arrival Date: 05/25/2019 Time: 09:16 Bed 19 Private MD: Diagnosis: Displaced transverse fracture of right patella;Multiple fractures of ribs, right [id number];Hyperkalemia Presentation: 05/25 09:17 Presenting complaint: EMS states: FALL 2 DAYS AGO WITH R KNEE AND RIB PAIN, NO HD x1 bp WK. Transition of care: patient was not received from another setting of care. Onset of symptoms is unknown. Risk Assessment: Do you want to hurt yourself or someone else? Patient reports no desire to harm self or others. Initial Sepsis Screen: Does the patient meet any 2 criteria? RR > 20 per min. No. Patient's initial sepsis screen is negative. Does the patient have a suspected source of infection? No. Patient's initial sepsis screen is negative. Care prior to arrival: Glucose check: 78. 09:17 Method Of Arrival: EMS: [facility] bp 09:17 Acuity: BRAD 2 bp Triage Assessment: 09:19 General: Appears in no apparent distress. uncomfortable, Behavior is cooperative, bp appropriate for age, anxious. Pain: Complains of pain in right knee. EENT: No deficits noted. Neuro: No deficits noted. Cardiovascular: Rhythm is sinus rhythm. Respiratory: No deficits noted. GI: No signs and/or symptoms were reported involving the gastrointestinal system. : No signs and/or symptoms were reported regarding the genitourinary system. Derm: No deficits noted. Musculoskeletal: No deficits noted. Historical: - Allergies: :19 Corticosteroids (Glucocorticoids); bp - Home Meds: :19 Unable to obtain [Active]; bp - PMHx: :19 "spot on lung"; Anemia; Arthritis; CHF; CVA; Diabetes - IDDM; Dialysis; M,W,F; GERD; GI bp Bleed; High Cholesterol; Hypertension; Pneumonia; - Immunization history:: Adult Immunizations unknown. - Social history:: Smoking status: unknown. - Ebola Screening: : No symptoms or risks identified at this time. - Family history:: not pertinent. - Hospitalizations: : No recent hospitalization is reported. Screenin:19 Abuse screen: Denies threats or abuse. Denies injuries from another. Nutritional bp screening: No deficits noted. Tuberculosis screening: No symptoms or risk factors identified. Fall Risk None identified. Assessment: 09:19 General: SEE TRIAGE NOTE. bp 11:09 Reassessment: PT RETURNED FROM RAD, ALL CURRENT ORDERS COMPLETED. REMAINS HYPERTENSIVE bp ON MONITOR. 11:13 Reassessment: R KNEE XRAY GROSSLY ABNORMAL. MD CONTACTED FOR PAIN MEDICATION. bp 12:11 Reassessment: ADMIT IN PROCESS, PT UNABLE TO TAKE SELF TO HD TOMORROW. bp 13:28 Reassessment: ADMIT IN PROCESS. PT EATING RENAL DIET. PT REMAINS GROSSLY HYPERTENSIVE. bp 15:30 Reassessment: ADMIT IN PROCESS. PT RESTING QUIETLY BUT REMAINS HYPERTENSIVE. bp 16:16 Reassessment: KNEE IMMOBILIZER PLACED AFTER PAIN MEDS. ADMIT COMPLETE, BED ASSIGNED. bp 16:34 Reassessment: FLOOR DECLINING PT 2/[address] MCKINNON AT B/S FOR PT EVAL. bp 16:39 Reassessment: PER DR MCKINNON, PT TO CHANGE TO ICU STATUS FOR CARDENE GTT TITRATION. bp 17:19 Reassessment: ICU BED ASSIGNMENT TO BE AVAILABLE AFTER SHIFT CHANGE. PER ER ATTENDING, bp CARDENE GTT ON HOLD IN ER. KNEE IMMOBILIZER RELEASED PER PT REQUEST. 17:56 Reassessment: PT RESTING QUIETLY, S/S IMPROVED. ICU ADMIT IN PROCESS. bp 19:07 Reassessment: Patient appears in no apparent distress at this time. Patient and/or family updated on plan of care and expected duration. Pain level reassessed. Patient is alert, oriented x 3, equal unlabored respirations, skin warm/dry/pink. 19:42 Reassessment: Spoke with Migdalia GARY, Pt with no Nicardipine Drip, ABDIRAHMAN spoke with [facility] regarding downgrading Pt to regular bed. CN will speak with night Hospitalist. 20:30 Reassessment: Patient appears in no apparent distress at this time. No changes from previously documented assessment. Patient and/or family updated on plan of care and expected duration. Pain level reassessed. Patient is alert, oriented x 3, equal unlabored respirations, skin warm/dry/pink. Vital Signs: 09:19 BP 215 / 111; Pulse 80; Resp 21; Temp 97; Pulse Ox 100% ; Weight 52.16 kg; bp 10:39 BP 233 / 109; Pulse 79; Resp 18; Pulse Ox 100% ; bp 11:12 BP 221 / 136; Pulse 78; Resp 16; Pulse Ox 100% ; bp 12:13 BP 217 / 106; Pulse 81; Resp 16; Pulse Ox 100% ; bp 13:28 BP 228 / 109; Pulse 85; Resp 18; Pulse Ox 100% ; bp 14:30 BP 186 / 100; Pulse 77; Resp 18; Pulse Ox 100% on R/A; dh3 15:30 BP 218 / 101; Pulse 77; Resp 16; Pulse Ox 100% ; bp 16:30 BP 190 / 99; Pulse 80; Resp 17; Pulse Ox 100% ; bp 17:00 BP 210 / 110; Pulse 86; Resp 17; Pulse Ox 100% ; bp 17:30 BP 162 / 110; Pulse 82; Resp 16; Pulse Ox 100% ; bp 18:00 BP 176 / 85; Pulse 84; Resp 15; Pulse Ox 100% ; bp 19:00 BP 172 / 81; Pulse 85; Resp 18; Pulse Ox 100% ; wh 19:45 BP 171 / 87; Pulse 83; Resp 16; Pulse Ox 100% on R/A; wh 20:30 BP 176 / 90; Pulse 85; Resp 18; Pulse Ox 100% on R/A; wh ED Course: 09:16 Patient arrived in ED. bp 09:16 Humberto Salinas MD is Attending Physician. rn 09:18 Triage completed. bp 09:19 Arm band placed on. bp 09:19 Patient has correct armband on for positive identification. Bed in low position. Call bp light in reach. Side rails up X2. 09:21 EKG done, by surgical services tech. reviewed by Humberto Salinas MD. at1 09:23 Navdeep Gunderson, MAYR is Primary Nurse. bp 09:37 Radiology exam delayed due to IV insertion attempt and/or patient not having bh appropriate IV at this time. 09:38 Missed attempt(s): 22 gauge in left forearm. Bleeding controlled, band aid applied, dh3 catheter tip intact. 09:40 Missed attempt(s): 20 gauge in left forearm. Bleeding controlled, band aid applied, dh3 catheter tip intact. 09:45 Inserted saline lock: 22 gauge in left hand, using aseptic technique. Blood collected. bp 11:15 XRAY Chest (1 view) In Process Unspecified. EDMS 11:15 XRAY Ribs RIGHT In Process Unspecified. EDMS 11:15 XRAY Knee RIGHT 3 view In Process Unspecified. EDMS 11:55 Scottie Espana MD is Hospitalizing Provider. rn 12:07 Rosalind Frost MD is Hospitalizing Provider. rn 15:41 No provider procedures requiring assistance completed. Patient admitted, IV remains in bp place. Administered Medications: 11:23 Drug: morphine 4 mg Route: IVP; Site: left hand; bp 12:14 Follow up: Response: Pain is decreased bp 11:24 Drug: Zofran 4 mg Route: IVP; Site: left hand; bp 12:14 Follow up: Response: No adverse reaction bp 13:36 Drug: hydrALAZINE 10 mg Route: IV; Rate: 1 bolus; Site: left hand; bp 16:18 Follow up: IV Status: Completed infusion bp 16:15 Drug: fentaNYL (PF) 50 mcg Route: IVP; Site: left forearm; bp 16:40 Follow up: Response: Pain is decreased bp 17:18 Not Given (CANCELLED BY ER ATTENDING): niCARdipine (25mg/250ml) 5 mg/hr IV at 2.5 mg/hr bp continuous; Adjust 2.5 mg/hr every 10 minutes to keep SBP between 140 mmHg and 120 mmHg. Range 0 to 15 mg/hr. Wean to minimum required dose. 17:19 Drug: hydrALAZINE 10 mg Route: IV; Rate: bolus; Site: left forearm; bp 19:06 Follow up: Response: No adverse reaction; Blood pressure is lowered; IV Status: wh Completed infusion 17:19 Drug: morphine 4 mg Route: IVP; Site: left forearm; bp 19:07 Follow up: Response: No adverse reaction; Pain is decreased; RASS: Alert and Calm (0) Outcome: 11:56 Decision to Hospitalize by Provider. rn 21:38 Admitted to Tele accompanied by tech, via stretcher, room 403, with chart, Report wh called to Nava HERNANDEZ 21:38 Condition: stable 21:38 Instructed on the need for admit. 21:39 Patient left the ED. Signatures: Dispatcher [employer] EDMS Humberto Salinas MD MD rn Gonzales, Amanda, microfilm camera operator EKG Tat1 Henny Kovacs dh3 Ligia Adkins Navdeep Gunderson RN RN Tiffany Gatica bh Corrections: (The following items were deleted from the chart) 11:13 09:19 Pulse 80bpm; Resp 21bpm; Pulse Ox 100%; Temp 97F; 52.16 kg; bp bp 19:45 19:42 Reassessment: Spoke with Migdalia GARY, Pt with no Cardipine Drip, CN spoke with [facility] regarding downgrading Pt to regular bed. CN will speak with night Hospitalist
--- NOTE | 2019-05-25 11:57 | EDPHYS ---
Physician Documentation [facility] Name: Billy Trejo Age: 63 yrs Sex: Male : 1955 Arrival Date: 05/25/2019 Time: 09:16 Bed 19 Private MD: ED Physician Humberto Salinas HPI: 05/25 10:31 This 63 yrs old Black Male presents to ER via EMS with complaints of Knee Pain, Blood rn Pressure Problem. 10:31 The patient presents with an injury, pain. The complaints affect the right knee. rn Context: Onset: The symptoms/episode began/occurred 2 day(s) ago. Modifying factors: The symptoms are alleviated by remaining still, the symptoms are aggravated by movement, weight bearing. Severity of symptoms: At their worst the symptoms were moderate, in the emergency department the symptoms are unchanged. The patient has not experienced similar symptoms in the past. Reports fall from standing, tripped, 2 days ago, landed on right knee and right ribs, reports hasn't been to dialysis in 1 week, reports sob. . Historical: - Allergies: 09:19 Corticosteroids (Glucocorticoids); bp - Home Meds: :19 Unable to obtain [Active]; bp - PMHx: 09:19 "spot on lung"; Anemia; Arthritis; CHF; CVA; Diabetes - IDDM; Dialysis; M,W,F; GERD; GI bp Bleed; High Cholesterol; Hypertension; Pneumonia; - Immunization history:: Adult Immunizations unknown. - Social history:: Smoking status: unknown. - Ebola Screening: : No symptoms or risks identified at this time. - Family history:: not pertinent. - Hospitalizations: : No recent hospitalization is reported. ROS: 10:31 Constitutional: Negative for fever, chills, and weight loss, Eyes: Negative for injury, rn pain, redness, and discharge, Neck: Negative for injury, pain, and swelling, Cardiovascular: + right chest pain Respiratory: Negative for wheezing, and pleuritic chest pain, Abdomen/GI: Negative for abdominal pain, nausea, vomiting, diarrhea, and constipation, MS/Extremity: + right knee injury and pain Skin: Negative for injury, rash, and discoloration, Neuro: Negative for headache, weakness, numbness, tingling, and seizure. Exam: 10:31 Constitutional: This is a well developed, well nourished patient who is awake, alert, rn and in no acute distress. Head/Face: Normocephalic, atraumatic. ENT: dry MM Neck: Trachea midline, no thyromegaly or masses palpated, and no cervical lymphadenopathy. Supple, full range of motion without nuchal rigidity, or vertebral point tenderness. No Meningismus. Chest/axilla: + tenderness right lateral inferior ribs, no crepitus or mobile segments Cardiovascular: Regular rate and rhythm. No pulse deficits. Respiratory: Mild tachypnea with crackles at bases, no retractions Abdomen/GI: soft, non-tender MS/ Extremity: + right knee with swelling and painful ROM Neuro: Awake and alert, GCS 15, oriented to person, place, time, and situation. Cranial nerves II-XII grossly intact. Motor strength 5/5 in all extremities. Sensory grossly intact. Vital Signs: 09:19 BP 215 / 111; Pulse 80; Resp 21; Temp 97; Pulse Ox 100% ; Weight 52.16 kg; bp 10:39 BP 233 / 109; Pulse 79; Resp 18; Pulse Ox 100% ; bp 11:12 BP 221 / 136; Pulse 78; Resp 16; Pulse Ox 100% ; bp 12:13 BP 217 / 106; Pulse 81; Resp 16; Pulse Ox 100% ; bp 13:28 BP 228 / 109; Pulse 85; Resp 18; Pulse Ox 100% ; bp 14:30 BP 186 / 100; Pulse 77; Resp 18; Pulse Ox 100% on R/A; dh3 15:30 BP 218 / 101; Pulse 77; Resp 16; Pulse Ox 100% ; bp 16:30 BP 190 / 99; Pulse 80; Resp 17; Pulse Ox 100% ; bp 17:00 BP 210 / 110; Pulse 86; Resp 17; Pulse Ox 100% ; bp 17:30 BP 162 / 110; Pulse 82; Resp 16; Pulse Ox 100% ; bp 18:00 BP 176 / 85; Pulse 84; Resp 15; Pulse Ox 100% ; bp 19:00 BP 172 / 81; Pulse 85; Resp 18; Pulse Ox 100% ; wh 19:45 BP 171 / 87; Pulse 83; Resp 16; Pulse Ox 100% on R/A; wh 20:30 BP 176 / 90; Pulse 85; Resp 18; Pulse Ox 100% on R/A; wh MDM: 09:17 Patient medically screened. rn 11:53 Differential diagnosis: closed fracture, contusion. Data reviewed: vital signs, nurses rn notes, lab test result(s), EKG, radiologic studies, plain films, and as a result, I will admit patient. Counseling: I had a detailed discussion with the patient and/or guardian regarding: the historical points, exam findings, and any diagnostic results supporting the discharge/admit diagnosis, lab results, radiology results, the need for further work-up and treatment in the hospital. Response to treatment: the patient's symptoms have mildly improved after treatment, and as a result, I will admit patient. Admission orders: after a detailed discussion of the patient's condition and case, the admit orders are written by me. ED course: Pt with closed patella fracture, placed in knee immobilizer, will need to f/u with ortho in a week or so. Also, has not had dialysis in a week, went to dialysis and sent here for dialysis, has now missed his medical ride for the day because they made him come here, and does not have a way to get to dialysis. Potassium mild elevation, and sob. Will admit to hospitalist service. . 05/25 09:18 Order name: CBC with Diff; Complete Time: 10:30 rn 05/25 09:18 Order name: Basic Metabolic Panel; Complete Time: 10:30 rn 05/25 09:18 Order name: XRAY Chest (1 view); Complete Time: 11:43 rn 05/25 09:18 Order name: XRAY Ribs RIGHT; Complete Time: 11:53 rn 05/25 09:18 Order name: XRAY Knee RIGHT 3 view; Complete Time: 11:43 rn 05/25 09:18 Order name: EKG; Complete Time: 09:18 rn 05/25 11:44 Order name: Diet Renal; Complete Time: 11:45 dh3 05/25 09:18 Order name: IV Start; Complete Time: 09:51 rn 05/25 09:18 Order name: EKG - Nurse/Tech; Complete Time: 09:22 rn Administered Medications: 11:23 Drug: morphine 4 mg Route: IVP; Site: left hand; bp 12:14 Follow up: Response: Pain is decreased bp 11:24 Drug: Zofran 4 mg Route: IVP; Site: left hand; bp 12:14 Follow up: Response: No adverse reaction bp 13:36 Drug: hydrALAZINE 10 mg Route: IV; Rate: 1 bolus; Site: left hand; bp 16:18 Follow up: IV Status: Completed infusion bp 16:15 Drug: fentaNYL (PF) 50 mcg Route: IVP; Site: left forearm; bp 16:40 Follow up: Response: Pain is decreased bp 17:18 Not Given (CANCELLED BY ER ATTENDING): niCARdipine (25mg/250ml) 5 mg/hr IV at 2.5 mg/hr bp continuous; Adjust 2.5 mg/hr every 10 minutes to keep SBP between 140 mmHg and 120 mmHg. Range 0 to 15 mg/hr. Wean to minimum required dose. 17:19 Drug: hydrALAZINE 10 mg Route: IV; Rate: bolus; Site: left forearm; bp 19:06 Follow up: Response: No adverse reaction; Blood pressure is lowered; IV Status: Completed infusion 17:19 Drug: morphine 4 mg Route: IVP; Site: left forearm; bp 19:07 Follow up: Response: No adverse reaction; Pain is decreased; RASS: Alert and Calm (0) Disposition: 05/25/19 11:56 Hospitalization ordered by Rosalind Frost for Observation. Preliminary diagnosis are Displaced transverse fracture of right patella, Multiple fractures of ribs, right side - non-displaced, Hyperkalemia. - Bed requested for Telemetry/MedSurg (observation). - Status is Observation. - Condition is Stable. - Problem is new. - Symptoms have improved. UTI on Admission? No Signatures: Dispatcher [employer] EDMS Melody Younger RN RN Humberto Salinas MD MD rn Garcia, Cindy, RN RN cg Habalo, Winsy Navdeep Gunderson RN RN bp Corrections: (The following items were deleted from the chart) 12:07 11:56 Hospitalization Ordered by Scottie Espana MD for Observation. Preliminary diagnosis rn is Displaced transverse fracture of right patella; Multiple fractures of ribs, right side - non-displaced; Hyperkalemia. Bed requested for Telemetry/MedSurg (observation). Status is Observation. Condition is Stable. Problem is new. Symptoms have improved. UTI on Admission? No. rn 15:34 12:07 05/25/2019 11:56 Hospitalization Ordered by Rosalind Frost MD for Observation. iw Preliminary diagnosis is Displaced transverse fracture of right patella; Multiple fractures of ribs, right side - non-displaced; Hyperkalemia. Bed requested for Telemetry/MedSurg (observation). Status is Observation. Condition is Stable. Problem is new. Symptoms have improved. UTI on Admission? No. rn 16:42 15:34 05/25/2019 11:56 Hospitalization Ordered by Rosalind Frost MD for Observation. iw Preliminary diagnosis is Displaced transverse fracture of right patella; Multiple fractures of ribs, right side - non-displaced; Hyperkalemia. Bed requested for Telemetry/MedSurg (observation). Status is Observation. Condition is Stable. Problem is new. Symptoms have improved. UTI on Admission? No. iw 20:24 16:42 05/25/2019 11:56 Hospitalization Ordered by Rosalind Frost MD for Observation. cg Preliminary diagnosis is Displaced transverse fracture of right patella; Multiple fractures of ribs, right side - non-displaced; Hyperkalemia. Bed requested for Telemetry/MedSurg (observation). Status is Observation. Condition is Stable. Problem is new. Symptoms have improved. UTI on Admission? No. iw 21:39 20:24 05/25/2019 11:56 Hospitalization Ordered by Rosalind Frost MD for Observation. wh Preliminary diagnosis is Displaced transverse fracture of right patella; Multiple fractures of ribs, right side - non-displaced; Hyperkalemia. Bed requested for Telemetry/MedSurg (observation). Status is Observation. Condition is Stable. Problem is new. Symptoms have improved. UTI on Admission? No. cg
[2019-05-25] MEDS ORDERED: HYDRALAZINE HCL 20 MG/ML VIAL ONE ×2 (13:36→17:13)
[2019-05-25] MEDS ORDERED: ONDANSETRON 4 MG/2 ML VIAL IV PRN (14:13)
[2019-05-25] MEDS ORDERED: ACETAMINOPHEN 500 MG TAB PO PRN (14:13)
[2019-05-25] MEDS ORDERED: ALBUTEROL 2.5 MG/3 ML NEB SOL NEB PRN (14:13)
[2019-05-25] MEDS ORDERED: FENTANYL CITR 100 MCG/2 ML ONE (16:06)
[2019-05-25] MEDS: INSULIN -REGULAR HUMAN 50 UNIT/0.5 ML ML SQ SCH ×2 (16:30→21:00)
[2019-05-25] MEDS ORDERED: MORPHINE 4 MG/ML SYR ONE (17:14)
[2019-05-25] MEDS ORDERED: MORPHINE 2 MG/ML SYR IV PRN (21:20)
[2019-05-25] MEDS: MORPHINE 4 MG/ML SYR IV PRN (21:26)
[2019-05-25] MEDS: HYDRALAZINE HCL 20 MG/ML VIAL IV PRN (23:17)
[2019-05-25] MEDS: ALPRAZOLAM 0.25 MG TABLET PO PRN (23:17)
[2019-05-25] MEDS ORDERED: HYDROMORPHONE HCL 1 MG/ML INJ IV ONE (23:29)
--- NOTE | 2019-05-26 00:34 | HP ---
Date of Admission: 05/25/2019 Chief Complaint: Missing hemodialysis. History Of Present Illness: This patient is a 63-year-old male who presented for missing hemodialysis. He has a history of end-stage renal disease, for which he is on scheduled hemodialysis on Saturday, Saturday, and Saturday. This patient is a homeless resident. He said he did not go for hemodialysis for at least 1-1/2 weeks. Patient fell 5 days ago and hit his right knee and chest. He then developed right knee pain. This is associated with swelling and tenderness. It is difficult for him to ambulate. He did not lose consciousness after fall. He had some right chest tenderness. This patient not feel good and then called 911. He was sent to our emergency room for right knee pain and missing hemodialysis. He denied syncope. No nausea or vomiting. No fever or chills. In the ED, his blood pressure was high, above 200. WBC is 13.6, hemoglobin 9.2, and platelets 212. Creatinine 6.3. Chest x- ray demonstrates nondisplaced rib fracture on right 5th to 7th ribs. Knee x- ray demonstrates right patella fracture. He was admitted for hemodialysis. Past Medical History: 1. End-stage renal disease. 2. Hypertension. 3. Diabetes. 4. Hyperlipidemia. 5. History of CVA. 6. Anemia. 7. Drug abuse. 8. Noncompliance. Surgical History: 1. Colonoscopy. 2. EGD. 3. Dialysis catheter placement. Home Medications: Reviewed. Allergies: CORTICOSTEROIDS. Review of Systems: No headache or syncope. No vision and hearing change. No runny nose or sore throat. No cough. Mild shortness of breath. No chest pain. No palpitation. No nausea or vomiting. No abdominal pain. No diarrhea. No constipation. No dysuria or hematuria. No numbness or weakness. For others, please see HPI. Social History: Homeless. History of drug abuse. Family History: Father had heart disease. Mother had cancer. Physical Examination: Vitals: His SBP more than 200s. General: Patient is awake and alert, oriented x3. He is in distress due to right knee pain. HEENT: Normocephalic, atraumatic, PERRLA, EOMI, moist mucous membrane, poor dentition. Neck: Supple. No JVD. Chest: Decreased breath sounds. No labored breathing. No wheezing. Heart: Normal S1, S2. No murmur. Abdomen: Soft, nontender. Bowel sounds present. Extremities: Swelling and tenderness along the right knee. It is painful to bend over, otherwise unremarkable. Neuro: Patient is awake, alert, oriented x3. Cranial nerves 2 through 12 intact. Psych: Anxious due to pain. No suicidal ideation. Skin: No rashes. Laboratory Data: WBC 13.6, hemoglobin 9.2, platelets 212. Sodium 143, potassium 5.3, chloride 113, carbon 23, BUN 72, creatinine 6.33, estimated GFR 11. Assessment And Plan: 1. End-stage renal disease. Patient now scheduled dialysis on Saturday, Saturday, and Saturday. However, he missed dialysis for 1-1/2 weeks. Stem Threshing Machine Operator will be consulted and he needs hemodialysis. Currently, his creatinine is 6.33. 2. Right patellar fracture. Knee x-ray demonstrated transverse fracture involving the inferior aspect of the patella. There is a 2.5 cm fragment that has been detached. We started pain medication. I talked to Dr. Damico who will come to see the patient. I appreciate his assistance. 3. Uncontrolled hypertension. His SBP more than 200s. We will give IV hydralazine as needed. We will resume home BP medication. Consider Cardene drip if still uncontrolled. 4. Diabetes. I started sliding scale. Diabetic diet. 5. Anemia. Hemoglobin 9.2. This is due to kidney disease. No need for transfusion. 6. Noncompliance. Patient apparently did not take his medication regularly and not follow physician. Extensive education regarding compliance was given. Further plan will be based on patient's condition. QT/MODL Voice ID: [id number] KATIE
[2019-05-26 00:41] LABS: Urine Appearance CLEAR; Urine Bilirubin NEGATIVE (NEG); Urine Blood NEGATIVE (NEG); Urine Color YELLOW; Urine Glucose NEGATIVE (NEG); Urine Protein 2+ (NEG); Urine Specific Gravity 1.015 (1.005-1.030); Urine Urobilinogen 0.2 mg/dL (0.2-1.0)
[2019-05-26 00:42] LABS: Urine Microscopic Reflex ORDER UMIC
[2019-05-26 00:57] LABS: Urine Bacteria <20 /HPF (NONE SEEN); Urine Culture Reflex Order NOT NEEDED; Urine RBC <5 /HPF (NONE SEEN); Urine Urothelial Cells <5 /HPF (NONE SEEN)
--- NOTE | 2019-05-26 03:56 | CON ---
Date of Consultation: 05/25/2019 Chief Complaint: End-stage renal disease, hyperkalemia, congestive heart failure with diastolic dysfunction, chest discomfort. History Of Present Illness: Patient has multiple medical problems including history of end-stage renal disease, noncompliance with dialysis. He was scheduled to continue dialysis on Saturday, Saturday, and Saturday. He missed dialysis on at least 3 occasions and was referred to emergency room for evaluation to resume dialysis. He has CVA, diabetes mellitus with diabetic kidney disease, hypercholesterolemia, history of pneumonia. Previously, he was diagnosed with lung nodule and was to follow up with belt loop cutter, although he is noncompliant and it is not certain that he was able to follow up with a belt loop cutter. Today, the patient is complaining of generalized weakness. Denies fever and chills. Review of Systems: Constitutional: Denies fever, chills, syncope. Eyes: Denies vision changes. Ears, Nose, Mouth and Throat: Denies sore throat, earache. Respiratory: Has shortness of breath with activities. Denies PND, orthopnea. Denies wheezing. GI: Denies nausea, vomiting, melena, hematemesis. : Denies dysuria, hematuria. All other systems reviewed and all are negative. Past Medical History: End-stage renal disease on hemodialysis, noncompliance with dialysis schedule; hypertensive heart and kidney disease; congestive heart failure; CVA; diabetes with renal manifestation; anemia; CKD; renal osteodystrophy; hypercholesterolemia; history of GI bleeding; hypertension; pneumonia; deconditioning. Social History: Denies tobacco, alcohol, or illicit drugs. Family History: Denies kidney disease in the family. Physical Examination: General: The patient is awake, alert, follows commands. Eyes: Anicteric sclerae. EOMI. Ears, Nose, Mouth, and Throat: Oral mucosa moist. No pallor. Neck: Supple. No bruits. Lungs: Diminished breath sounds at the bases. Crackles present in bases. Heart: S1, S2. No pericardial friction rub. Abdomen: Soft. Benign. Nontender. No rebound. No guarding. Extremities: Edema present in both legs. Neurological: Moving extremities. Cranial nerves intact. Psychiatric: Alert oriented x3. Normal affect. Vital Signs: Blood pressure 233/109, heart rate 79, pulse oximetry 100%. Laboratory Work: Hemoglobin 9.2, WBC 13.6, platelet count 212,000, neutrophils 86.2%, lymphocytes 5.3%. Sodium 143, potassium 5.3, chloride 13, CO2 23, BUN 72 , creatinine is 6.23, calcium 7.9. Impression And Plan: 1. Congestive heart failure with diastolic dysfunction, fluid overload. Patient will have dialysis as soon as possible to obtain ultrafiltration. 2. Leukocytosis, elevated white count. Patient will need to be screened for bacteremia and recommend blood culture. 3. Hypertension. Blood pressure is uncontrolled. Patient has severe hypertensive crisis and systolic blood pressure is severely elevated. Plan is to start Cardene drip. Patient will be admitted to ICU for IV drip to control hypertension. 4. Accelerated hypertension with congestive heart failure. Plan is to resume dialysis when blood pressure is stabilizing below 180s. Plan is to obtain ultrafiltration with dialysis to control volemia. 5. Renal osteodystrophy. Continue renal diet and binders. 6. Monitor phosphorus level. 7. Anemia and chronic kidney disease. Continue to monitor hemoglobin level and plan transfusion accordingly. Otherwise when blood pressure is controlled, patient will resume SCARLETT. ANSLEY/ZULEIMA Voice ID: [id number] Report ID: [id number] KATIE
[2019-05-26] MEDS: MORPHINE 4 MG/ML SYR IV PRN (04:34)
[2019-05-26] MEDS: HYDRALAZINE HCL 20 MG/ML VIAL IV PRN (04:35)
[2019-05-26 04:56] LABS: Absolute Lymphocytes (CBC) 0.9 K/uL (0.7-4.9); Basophils % 0.4 % (0-1.3); Hematocrit 25.6 % (39.6-49.0); Lymphocytes % 6.5 % (15.3-44.8); MPV 8.3 fL (7.6-11.3); RBC Red Blood Cell Count 3.06 M/uL (4.33-5.43)
[2019-05-26 05:23] LABS: Magnesium 2.1 mg/dL (1.8-2.4); Phosphorus 4.9 mg/dL (2.5-4.9); Potassium 5.3 mmol/L (3.5-5.1)
[2019-05-26] MEDS: HYDROMORPHONE HCL 1 MG/ML INJ IV PRN ×3 (06:05→19:38)
[2019-05-26] MEDS: INSULIN -REGULAR HUMAN 50 UNIT/0.5 ML ML SQ SCH ×4 (07:30→20:29)
[2019-05-26 08:17] LABS: MPV 8.1 fL (7.6-11.3)
[2019-05-26] MEDS: carvediloL 12.5 MG TAB PO SCH ×2 (09:34→20:32)
[2019-05-26] MEDS: GABAPENTIN 300 MG CAP PO SCH ×2 (09:34→20:30)
[2019-05-26] MEDS: PANTOPRAZOLE 40MG TABLET PO SCH (09:34)
[2019-05-26] MEDS: HYDRALAZINE HCL 25 MG TABLET PO SCH ×3 (09:34→20:30)
[2019-05-26 10:12] LABS: Platelet Estimate ADEQ
[2019-05-26] MEDS: SEVELAMER CARBONATE 800 MG TABLET PO SCH ×2 (12:00→16:56)
[2019-05-26] MEDS ORDERED: NA CHLORIDE 0.9% 250 ML ONE ×2 (13:53→14:52)
--- NOTE | 2019-05-26 16:02 | CON ---
Date of Consultation: 05/26/2019 Reason For Consultation: Right knee pain. History Of Present Illness: Mr. Trejo is a 63-year-old male who presented to ER with ESRD, hyperkal emia, CHF with diastolic dysfunction and chest discomfort as well as right knee pain. In the ER, he had x-rays which demonstrated a transverse patellar fracture, right patella fracture, as well as need ing dialysis. He has not had dialysis for over 1 week. He has history of CVA, diabetes as well as d iabetic kidney disease with end-stage renal disease, hypercholesterolemia. He reports fall within last 3 or 4 days onto his right knee with subsequent pain and inability to bear weight. He denies any other musculoskeletal complaints at this time. He does report generalized weakness on admission. Denies any fevers, chills. Review of Systems: As above, otherwise negative. Past Medical History: ESRD, hypertension, congestive heart failure, history of stroke, diabetes, hyp ercholesterolemia. Past Surgical History: None. Medications: He is on Protonix, carvedilol, gabapentin, hydralazine, metoclopramide, Ambien, sevelam er, Tylenol with codeine and Flexeril. Allergies: TO CORTICOSTEROIDS. Physical Examination: General: No apparent distress. HEENT: Normocephalic, atraumatic. Neck: Supple. Cardiovascular: Brisk cap refill to all digits. Chest: Nonlabored breathing. Abdomen: Nondistended. Psychiatric: Response to exam. Musculoskeletal: Bilateral upper extremities functional range of motion without pain. No gross defo rmities. No obvious dislocations. Left lower extremity functional range of motion without pain. No gross deformities. No obvious dislocations. Right lower extremity tenderness to palpation of the r ight anterior knee, moderate swelling with likely hemarthrosis. Extensor mechanism was not intact. Moves toes grossly and gross sensation intact to the dorsal and plantar surface of his foot. X-rays: X-rays demonstrated displaced transverse right patella fracture just above the inferior pole of patella. Assessment And Plan: Billy is a 63-year-old male with a right displaced patella fracture. I discuss ed with the patient at length risks and benefits associated with operative and nonoperative treatment . Given the displaced fracture pattern as well as his lack of extensor mechanism, I recommended oper ative treatment including open reduction and internal fixation versus a partial patellectomy. He exp ressed understanding. The patient will need dialysis prior to surgery as well as workup for leukocyt osis prior to proceeding with ORIF. He will be nonweightbearing at this time and may be in a knee im mobilizer for comfort. CV/MODL Voice ID: [id number] Report ID: [id number]
--- NOTE | 2019-05-26 18:32 | PN ---
Date of Progress Note: 05/26/2019 Subjective: The patient was admitted after injury of his knee, missing dialysis a couple of times. Physical Examination: Vital Signs: Blood pressure 164/79, pulse of 88. General: Patient is scheduled for dialysis today. Chest: Crackles at bilateral base. Heart: S1 and S2 are regular. Abdomen: Soft, nontender. Extremities: Swelling on the right knee, +1 edema. Laboratory Data: WBC 13.1, H and H of 8.1/25.6, platelets 227. Sodium 143, potassium 5.3, bicarb 23 , BUN 70, creatinine 6.2, calcium 7.8, phosphorous 4.9, magnesium 2.1. Current Medications: The patient on: 1.Albuterol. 2.Vitamin C. 3.Carvedilol. 4.Hydralazine. 5.Alprazolam. 6.Gabapentin. 7.Renvela. 8.Pantoprazole. Assessment And Plan: 1.End-stage renal disease. We will arrange for the dialysis today. We will challenge the patient a nd we will follow up. 2.Hyperkalemia. The patient is going to be dialyzed on low-potassium bath. 3.Over volume. The patient is going to be challenge. 4.Knee injury. The patient is going to plan for surgery tomorrow. We will plan for transfusion tod ay. 5.Anemia of chronic kidney disease. We will resume SCARLETT. We will arrange for transfusion given the possible of high blood loss. 6.Secondary hyperparathyroid. Continue binder. MALINDA/ZULEIMA Voice ID: [id number] Report ID: [id number]
[2019-05-26] MEDS: LINEZOLID 600 MG IVPB 600 MG/300 ML BAG IV SCH (20:28)
[2019-05-26 21:13] LABS: Hematocrit 30.4 % (39.6-49.0)
--- NOTE | 2019-05-26 23:29 | PN ---
Subjective: Patient remains with right knee pain. Otherwise, no new complaints. Review of Systems: No fever, no chills. Continuous right knee pain. Otherwise, 10-point systems review unremarkable. Physical Examination: General: Patient awake and alert, in no acute distress. Vital Signs: Temperature 97.1, pulse 88, respiratory rate 16, blood pressure 164/79, oxygen saturation 99% on room air. HEENT: Atraumatic, normocephalic. PERRLA. EOMI. Neck: Supple. No JVD. Chest: Clear to auscultation. No labored breathing. No wheezing. No rales. Heart: Normal S1, S2. Regular rhythm and rate. No murmur. Abdomen: Soft, nontender. Bowel sounds present. Extremities: Persistent swelling and tenderness in the right knee. No cyanosis. Neuro: Patient awake and alert, oriented x3. Laboratory Data: WBC 13.1, hemoglobin 8.1, platelet 227. Sodium 143, potassium 5.3, creatinine 6.26, estimated GFR 11, glucose 132. Assessment/plan: 1. Right patella fracture. Patient failed and complained of right knee pain. Imaging study demonstrates transverse fracture of right patella. Orthopedic doctor was consulted and planned for surgical repair. This patient is a high risk candidate for surgery due to end-stage renal disease. He understood the high risk. 2. End-stage renal disease, on scheduled hemodialysis. He missed hemodialysis for one and 1/2 week. Strap Cutting Machine Operator was consulted and arranged dialysis today. 3. Hyperkalemia. Patient will be dialyzed. No potassium bath. 4. Anemia. This is due to renal disease. Strap Cutting Machine Operator planned to transfuse 2 units with dialysis. 5. Hypertension. His blood pressure was over 200 on arrival. Now, it is down to 160s. We will continue home BP medications. 6. Diabetes, on sliding scale and diabetic diet. We will resume home diabetes medication. 7. Leukocytosis. I started IV clindamycin empirically. 8. Noncompliance. Extensive education was given regarding the compliance. QT/MODL Voice ID: [id number] Report ID: [id number] KATIE
[2019-05-27] MEDS: HYDROMORPHONE HCL 1 MG/ML INJ IV PRN ×5 (00:11→19:50)
[2019-05-27] MEDS: INSULIN -REGULAR HUMAN 50 UNIT/0.5 ML ML SQ SCH ×4 (07:30→20:22)
[2019-05-27] MEDS: LINEZOLID 600 MG IVPB 600 MG/300 ML BAG IV SCH (09:00)
[2019-05-27 10:45] LABS: Absolute Lymphocytes (CBC) 0.9 K/uL (0.7-4.9); Basophils % 0.6 % (0-1.3); Hematocrit 29.3 % (39.6-49.0); Lymphocytes % 5.4 % (15.3-44.8); MPV 8.4 fL (7.6-11.3); RBC Red Blood Cell Count 3.47 M/uL (4.33-5.43)
[2019-05-27] MEDS: HYDRALAZINE HCL 25 MG TABLET PO SCH ×3 (11:08→20:21)
[2019-05-27] MEDS: carvediloL 12.5 MG TAB PO SCH ×2 (11:09→20:21)
[2019-05-27] MEDS: GABAPENTIN 300 MG CAP PO SCH ×2 (11:09→20:21)
[2019-05-27] MEDS: PANTOPRAZOLE 40MG TABLET PO SCH (11:09)
[2019-05-27] MEDS: SEVELAMER CARBONATE 800 MG TABLET PO SCH ×3 (11:09→17:52)
[2019-05-27] MEDS: CLINDAMYCIN INJ 300 MG in NA CHLORIDE 0.9% 50 ML IV SCH ×2 (12:18→17:00)
[2019-05-27] MEDS: CYCLOBENZAPRINE 10 MG TAB PO PRN (12:24)
--- NOTE | 2019-05-27 12:39 | P.PN ---
Subjective Date of Service: 05/27/19 Primary Care Provider: Dr. Arambula; Nephrology-Dr. Cruz Chief Complaint: fall Subjective: Doing well Physical Examination - Vital Signs Temperature: 97.3 F Blood Pressure: 130/60 Pulse: 76 Respirations: 18 Pulse Ox (%): 97 - Physical Exam General: Alert, In no apparent distress, Oriented x3, Cooperative HEENT: Atraumatic Neck: Supple Respiratory: Clear to auscultation bilaterally, Normal air movement Cardiovascular: Normal pulses, Regular rate/rhythm Gastrointestinal: Normal bowel sounds, Soft and benign, Non-distended Musculoskeletal: Other (Swelling to the right knee slightly improved.) Neurological: Normal speech, Normal strength at 5/5 x4 extr, Normal tone - Studies Laboratory Data (last 24 hrs) 05/26/19 20:53: Hgb 9.9 L, Hct 30.4 L D 05/26/19 12:15: PT 11.8, INR 1.00, APTT 23.9 L Microbiology Data (last 24 hrs): 05/26/19 18:18 Blood - Blood Gram Stain - Final Medications List Reviewed: Yes Assessment & Plan Discharge Plan: Home Plan to discharge in: 72 Hours Physician Review Additional Text: Impression: Fall with right patellar fracture with joint effusion End-stage renal disease on hemodialysis with hyperkalemia with noted recent noncompliance Anemia likely of chronic disease Hypertension Diabetes mellitus type 2 [id number]-xpedhaeri Plan: Fall with right patellar fracture with joint effusion: Orthopedics has evaluated patient. Orthopedics plans for surgery on Saturday. Patient may require inpatient rehab versus skilled placement after procedure. Will need to discuss options and care. Other option would include home health and physical therapy. Will discuss further with orthopedics. End-stage renal disease on hemodialysis with hyperkalemia with noted recent noncompliance: Continue with dialysis. Overall improved. Case discussed with nephrology. Compliance with dialysis address in detail. Patient understands this. Patient was previously homeless this is the likely reason of noncompliance. Patient reports that he is no longer homeless and has secured a place to stay. Anemia likely of chronic disease: Will monitor closely. Hypertension: Continue with medication. Diabetes mellitus type 2 [id number]: Continue Accu-Cheks. Sliding scale in place. Will check A1c. Time Spent Managing Pts Care (In Minutes): 55
[2019-05-27] MEDS ORDERED: MAGNESIUM HYDROXIDE 8% 30 ML PO ONE (13:17)
--- NOTE | 2019-05-27 13:31 | P.PN ---
Subjective Date of Service: 05/27/19 Primary Care Provider: Dr. Arambula; Nephrology-Dr. Cruz Chief Complaint: right patella fracture positive blood cultures noted today Physical Examination - Vital Signs Temperature: 97.3 F Blood Pressure: 130/60 Pulse: 76 Respirations: 18 Pulse Ox (%): 97 - Physical Exam General: Alert, In no apparent distress Musculoskeletal: Other (RLE: ttp over the patella with moderate swelling of knee ; NVI distally) - Studies Laboratory Data (last 24 hrs) 05/26/19 20:53: Hgb 9.9 L, Hct 30.4 L D Microbiology Data (last 24 hrs): 05/26/19 18:18 Blood - Blood Gram Stain - Final Medications List Reviewed: Yes Assessment And Plan - Plan Billy is a 63 yo male with a right patella fracture -fracture is unstable and extensor mechanism is not intact and will need ORIF vs partial patellectomy with repair -patient with positive blood cultures; will hold off on surgery until completion of treatment as elevated risk for infection with implanted hardware -knee immobilizer to right knee to minimize displacement
[2019-05-27] MEDS: ALPRAZOLAM 0.25 MG TABLET PO PRN (20:21)
--- NOTE | 2019-05-28 00:11 | PN ---
Date of Progress Note: 05/27/2019 Subjective: Patient was admitted after fall with injury to his knee. Patient is scheduled for knee surgery on Saturday. Physical Examination: Vital Signs: Blood pressure 154/73, pulse of 63. Chest: Clear to auscultation. Heart: S1, S2. Systolic murmur. Abdomen: Soft, nontender. Extremities: Trace edema. Swelling on the right knee with effusion. Laboratory Data: WBC 16.5, H and H 9.5/29.3, platelets 193. Sodium 141, potassium 5, bicarb 26, BUN 47, creatinine 5, calcium 7.4. Current Medications: The patient on include: 1.Carvedilol. 2.Hydralazine 100 t.i.d. 3.Alprazolam. 4.Gabapentin. 5.Renvela. 6.Pantoprazole. Assessment And Plan: 1.End-stage renal disease, normal volume, poor compliance. We will continue dialysis 3 times a week . 2.Hyperkalemia, resolved. We will continue to dialyze the patient on low-potassium bath. 3.Over volume. The patient has been challenged. We will continue current treatment. Currently nor mal volume. 4.Knee injury secondary to trauma. Continue to monitor. Plan for surgery. We will follow up with Orthopedics. 5.Leukocytosis, possible reaction to the knee injury. Culture still pending. No fever. We will shaila reveles. MALINDA/ZULEIMA Voice ID: [id number] Report ID: [id number]
[2019-05-28 04:34] LABS: Basophils % 0.3 % (0-1.3); Hematocrit 29.4 % (39.6-49.0); Lymphocytes % 6.4 % (15.3-44.8); MPV 8.4 fL (7.6-11.3); RBC Red Blood Cell Count 3.49 M/uL (4.33-5.43)
[2019-05-28 04:56] LABS: Magnesium 2.4 mg/dL (1.8-2.4); Phosphorus 4.2 mg/dL (2.5-4.9)
[2019-05-28] MEDS: HYDROMORPHONE HCL 1 MG/ML INJ IV PRN ×6 (05:02→22:02)
[2019-05-28 05:29] VITALS: BMI 23.2
[2019-05-28] MEDS: INSULIN -REGULAR HUMAN 50 UNIT/0.5 ML ML SQ SCH ×4 (07:30→21:00)
[2019-05-28] MEDS: HYDRALAZINE HCL 25 MG TABLET PO SCH ×3 (08:29→21:00)
[2019-05-28] MEDS: CLINDAMYCIN INJ 300 MG in NA CHLORIDE 0.9% 50 ML IV SCH ×3 (08:30)
[2019-05-28] MEDS: PANTOPRAZOLE 40MG TABLET PO SCH (08:30)
[2019-05-28] MEDS: GABAPENTIN 300 MG CAP PO SCH ×2 (08:31→20:59)
[2019-05-28] MEDS: carvediloL 12.5 MG TAB PO SCH ×2 (08:31→21:00)
[2019-05-28] MEDS: SEVELAMER CARBONATE 800 MG TABLET PO SCH ×3 (08:31→18:13)
[2019-05-28] MEDS: CYCLOBENZAPRINE 10 MG TAB PO PRN (11:39)
--- NOTE | 2019-05-28 12:21 | P.PN ---
Subjective Date of Service: 05/28/19 Primary Care Provider: Dr. Arambula; Nephrology-Dr. Cruz Chief Complaint: right patella fracture in knee immobilizer; pain improving Physical Examination - Vital Signs Temperature: 97.4 F Blood Pressure: 124/58 Pulse: 76 Respirations: 16 Pulse Ox (%): 98 - Physical Exam General: Alert, In no apparent distress Musculoskeletal: Other (RLE: knee immobilizer in place; moderate swelling of the right knee; NVI distally) - Studies Microbiology Data (last 24 hrs): 05/26/19 18:18 Blood - Blood Gram Stain - Final Medications List Reviewed: Yes Assessment And Plan - Plan Billy is a 63 yo male with a right patella fracture -fracture is unstable and extensor mechanism is not intact and will need ORIF vs partial patellectomy with repair -blood culture noted to be positive for possible contaminant; other blood cultures show now growth -await ID recs given indwelling line and leukocytosis -knee immobilizer to right knee to minimize displacement
--- NOTE | 2019-05-28 14:09 | P.PN ---
Subjective Date of Service: 05/28/19 Primary Care Provider: Dr. Arambula; Nephrology-Dr. Cruz Chief Complaint: right patella fracture Subjective: Doing well Physical Examination - Vital Signs Temperature: 97.4 F Blood Pressure: 124/58 Pulse: 76 Respirations: 16 Pulse Ox (%): 98 - Physical Exam General: Alert, Cooperative HEENT: Atraumatic Neck: Supple Respiratory: Clear to auscultation bilaterally, Normal air movement Cardiovascular: Normal pulses, Regular rate/rhythm Gastrointestinal: Normal bowel sounds, Soft and benign, Non-distended Integumentary: No erythema, No warmth, No cyanosis, Other (immobilizer in place. ) Neurological: Normal speech, Normal strength at 5/5 x4 extr, Normal tone - Studies Microbiology Data (last 24 hrs): 05/26/19 18:18 Blood - Blood Gram Stain - Final Medications List Reviewed: Yes Assessment & Plan Discharge Plan: Other (Skilled placement) Plan to discharge in: Greater than 2 days Physician Review Additional Text: Impression: Fall with right patellar fracture with joint effusion End-stage renal disease on hemodialysis with hyperkalemia with noted recent noncompliance Anemia likely of chronic disease Hypertension Diabetes mellitus type 2 [id number] Plan: Fall with right patellar fracture with joint effusion: Blood cultures 1/4 positive but this is likely a contaminant. Case discussed with nephrology. Will discontinue IV antibiotic therapy. Case discussed with orthopedics. Likely surgery tomorrow. Will confer with infectious disease. Will discuss with orthopedics after infectious disease recommendation. End-stage renal disease on hemodialysis with hyperkalemia with noted recent noncompliance: Continue with dialysis. Overall improved. Case discussed with nephrology. Compliance with dialysis address in detail. Patient understands this. Patient was previously homeless this is the likely reason of noncompliance. Patient reports that he is no longer homeless and has secured a place to stay. Anemia likely of chronic disease: Will monitor closely. Hypertension: Continue with medication. Diabetes mellitus type 2 [id number]: Continue Accu-Cheks. Sliding scale in place. A1c well controlled. Currently on diet controlled diabetes. Time Spent Managing Pts Care (In Minutes): 55
--- NOTE | 2019-05-28 20:40 | CON ---
History Of Present Illness: This is a 63-year-old male, I was consulted regarding b lood cultures being positive with Staph hominis, Staph coag-negative. Patient denies any other probl ems other than feeling tired and having pain in his knee. Patient recently had a fall, after which h e fractured his right patellar bone and supposed to get surgical repairs by Orthopedic team. Patient also complains of pain in his right side ribs after the fall. Denies any other problems at this katherine e. No fever. No rashes. No challenges with antibiotics. Past Medical History: Includes end-stage renal disease, hypertension, diabetes mellitus, hyperlipide janet, history of stroke, anemia, drug abuse, noncompliance, homelessness. Surgical History: Includes colonoscopy, EGD, dialysis catheter placement to the right chest. Family History: Noncontributory. Medications: Clindamycin. See MAR for other medications. Allergies: CORTICOSTEROIDS. Review of Systems: A 10-point review was performed. Physical Examination: General: This is a 63-year-old male, lying in bed, getting dialyzed, not in any acute cardiopulmonar y distress. Vital Signs: Temperature 97, pulse 76, respirations 16, blood pressure 124/58. HEENT: Unremarkable. Neck: Supple. Lungs: Basal crackles. Heart: S1, S2. Regular. Abdomen: Soft, nontender. Bowel sounds present. Extremities: Right knee with temporary brace in place. Laboratory Data: WBC 15.3, hemoglobin 9.4, platelets 183. Chemistry shows sodium 141, potassium 5, chloride 107, bicarb 27, BUN 59, creatinine 5.2. Procalcitonin is 0.17. Micro data shows blood cult ures, no growth in 24-hour except Staph coag-negative seen. No sensitivity available at this time. Assessment And Plan: A 63-year-old male status post fall and fracture of right patellar region and r ib bruising. We will recommend to continue antibiotic. Leukocytosis, possibly secondary to inflamma tory response to Staph coag-negative, most likely contaminant. We will repeat another set of blood c ultures to rule out any other infection. Continue clindamycin for a total of 10 days. Can be switch ed to oral on discharge. Thank you Dr. Brown for consult. NF/MODL Voice ID: [id number] Report ID: [id number]
--- NOTE | 2019-05-28 20:47 | RAD REPORT ---
EXAM DESCRIPTION: RAD - Chest Single View - 05/28/2019 8:39 pm CLINICAL HISTORY: Chest pain, rib pain COMPARISON: May 25 rib series and portable chest TECHNIQUE: AP portable chest image was obtained 2036 hours . FINDINGS: No pneumothorax, pulmonary contusion or acute lung parenchymal process. Vascular access ca theter remains in place. No pneumothorax or pleural effusion. Heart and vasculature are normal. No di splaced rib fractures are identifiable. No nondisplaced rib fracture seen. Portable imaging is limite d in fall rib assessment. This includes the slight cortical irregularity of the right fifth-seventh r ibs detailed on the May 25 study. No acute aortic findings suspected. IMPRESSION: Negative portable examination for acute or significant finding.
[2019-05-28] MEDS ORDERED: VANCOMYCIN 1.5 GM in NA CHLORIDE 0.9% 500 ML IVPB ONE (21:00)
--- NOTE | 2019-05-29 01:19 | PN ---
Date of Progress Note: 05/28/2019 History: The patient was admitted with knee pain after fall. The patient is scheduled for surgery t omorrow. Physical Examination: Vital Signs: Blood pressure 151/67, pulse of 80. Chest: Clear to auscultation. Heart: S1, S2. Systolic murmur. Abdomen: Soft, nontender. Extremities: Plus edema. Swelling on the right knee. Laboratory Data: H and H 9.4 and 29.4, WBC 15.3. Sodium 141, potassium 5, bicarb 27, BUN 59, creati nine 5.2, calcium of 8.1. Current Medications: The patient on include: 1.Vancomycin. 2.Breathing treatment. 3.Flexeril. 4.Epogen. 5.Hydralazine. 6.Renvela. 7.Gabapentin. 8.Pantoprazole. Assessment And Plan: 1.End-stage renal disease, slightly on the over volume size. We will challenge the patient again. 2.Hyperkalemia, marginal. We will dialyze the patient on low-potassium bath. 3.Hypertension. We will consider to utilize the blood pressure for more ultrafiltration. 4.Knee traumatic effusion. We will follow up with the primary. ROMAN Voice ID: [id number] Report ID: [id number]
[2019-05-29] MEDS: HYDROMORPHONE HCL 1 MG/ML INJ IV PRN ×2 (01:56→06:02)
[2019-05-29 04:28] LABS: MPV 8.6 fL (7.6-11.3)
[2019-05-29 04:39] LABS: Albumin 2.8 g/dL (3.4-5.0); Magnesium 2.3 mg/dL (1.8-2.4); Phosphorus 3.7 mg/dL (2.5-4.9); Potassium 4.9 mmol/L (3.5-5.1)
[2019-05-29 05:17] LABS: Platelet Estimate ADEQ
[2019-05-29] MEDS: INSULIN -REGULAR HUMAN 50 UNIT/0.5 ML ML SQ SCH ×4 (07:30→20:39)
--- NOTE | 2019-05-29 08:32 | P.PN ---
Subjective Date of Service: 05/29/19 Primary Care Provider: Dr. Arambula; Nephrology-Dr. Cruz Chief Complaint: right patella fracture Subjective: Doing well Physical Examination - Vital Signs Temperature: 97.2 F Blood Pressure: 133/64 Pulse: 73 Respirations: 16 Pulse Ox (%): 99 - Physical Exam General: Alert, In no apparent distress, Cooperative HEENT: Atraumatic Neck: Supple Respiratory: Clear to auscultation bilaterally, Normal air movement Cardiovascular: Normal pulses, Regular rate/rhythm Gastrointestinal: Normal bowel sounds Musculoskeletal: Other (Right knee with immobilizer. Swelling improved) - Studies Microbiology Data (last 24 hrs): 05/26/19 18:18 Blood - Blood Gram Stain - Final Medications List Reviewed: Yes Assessment & Plan Discharge Plan: Home Plan to discharge in: Greater than 2 days Physician Review Additional Text: Impression: Fall with right patellar fracture with joint effusion End-stage renal disease on hemodialysis with hyperkalemia with noted recent noncompliance Anemia likely of chronic disease Hypertension Diabetes mellitus type 2 [id number] Plan: Fall with right patellar fracture with joint effusion: Blood cultures 1/4 positive but this is likely a contaminant. Case discussed with nephrology, Infectious Disease and Orthopedics. Blood culture rechecked. Antibiotics adjusted. White count still elevated. Will continue with IV antibiotic therapy. Hold on blood culture. Surgery has been postponed till Saturday. Will continue to monitor closely. End-stage renal disease on hemodialysis with hyperkalemia with noted recent noncompliance: Continue with dialysis. Overall improved. Case discussed with nephrology. Compliance with dialysis addressed in detail. Patient understands this. Patient was previously homeless, this is the likely reason of noncompliance. Patient reports that he is no longer homeless and has secured a place to stay. Anemia likely of chronic disease: Will monitor closely. Hypertension: Continue with medication. Diabetes mellitus type 2 [id number]: Continue Accu-Cheks. Sliding scale in place. A1c well controlled. Currently on diet controlled diabetes. No need for oral medication. Time Spent Managing Pts Care (In Minutes): 55
[2019-05-29] MEDS ORDERED: VANCOMYCIN 1 GM in NA CHLORIDE 0.9% 500 ML IVPB SCH (09:00)
[2019-05-29] MEDS: HYDRALAZINE HCL 25 MG TABLET PO SCH ×3 (09:09→20:38)
[2019-05-29] MEDS: PANTOPRAZOLE 40MG TABLET PO SCH (09:09)
[2019-05-29] MEDS: carvediloL 12.5 MG TAB PO SCH ×2 (09:09→20:39)
[2019-05-29] MEDS: GABAPENTIN 300 MG CAP PO SCH ×2 (09:09→20:38)
[2019-05-29] MEDS: SEVELAMER CARBONATE 800 MG TABLET PO SCH ×3 (09:09→17:40)
[2019-05-29] MEDS: HYDROCODONE/APAP 7.5/325 MG TAB PO PRN ×3 (09:12→20:39)
--- NOTE | 2019-05-29 13:28 | P.PN ---
Subjective Date of Service: 05/29/19 Primary Care Provider: Dr. Arambula; Nephrology-Dr. Cruz Chief Complaint: right patella fracture Pt with ESRD, admitted for Knee taruma found to have patella fracture Today no new complaints HD tomorrow WBC cont to trend up , cultures so far negative Cont Abx plan for surgery tomorrow Physical Examination - Vital Signs Temperature: 97.6 F Blood Pressure: 148/69 Pulse: 75 Respirations: 16 Pulse Ox (%): 99 - Physical Exam General: Alert, In no apparent distress, Oriented x3 HEENT: Atraumatic, Normocephalic Neck: Supple, JVD not distended, Without JVD or thyroid abnormality Respiratory: Clear to auscultation bilaterally, Normal air movement Cardiovascular: No edema, Normal pulses, Regular rate/rhythm, Normal S1 S2, No gallops, No rubs, No murmurs Gastrointestinal: Soft and benign, Non-distended Musculoskeletal: No clubbing, No swelling, Other (Knee pain ) - Studies Medications List Reviewed: Yes Assessment And Plan - Plan ESRD on HD TTsat HD tomorrow renal dose meds Rt patela fracture plan for surgery tomorrow Anemia of chronic disease cont SCARLETT MBD cont binders LEuckocytosis possibly reactive F/U cultures Cont Abx
[2019-05-29] MEDS: CYCLOBENZAPRINE 10 MG TAB PO PRN (14:39)
--- NOTE | 2019-05-29 20:06 | P.PN ---
Subjective Date of Service: 05/29/19 Primary Care Provider: Dr. Arambula; Nephrology-Dr. Cruz Chief Complaint: right patella fracture in knee immobilizer; pain and swelling improved Physical Examination - Vital Signs Temperature: 97.8 F Blood Pressure: 136/60 Pulse: 79 Respirations: 16 Pulse Ox (%): 98 - Physical Exam General: Alert, In no apparent distress Musculoskeletal: Other (RLE: in knee immobiizer; swelling improved; NVI distally ) - Studies Medications List Reviewed: Yes Assessment And Plan - Plan Billy is a 63 yo male with a right patella fracture -fracture is unstable and extensor mechanism is not intact and will need ORIF vs partial patellectomy with repair -blood culture noted to be positive for possible contaminant; other blood cultures show no growth -knee immobilizer to right knee to minimize displacement -plan ORIF on SaturdayJun 01
[2019-05-29] MEDS: TRAMADOL HCL 50 MG TAB PO PRN (23:46)
[2019-05-29] MEDS: ALPRAZOLAM 0.25 MG TABLET PO PRN (23:46)
[2019-05-30] MEDS: HYDROCODONE/APAP 7.5/325 MG TAB PO PRN ×4 (02:18→21:59)
[2019-05-30 07:01] LABS: Albumin 2.7 g/dL (3.4-5.0); Magnesium 2.4 mg/dL (1.8-2.4); Phosphorus 5.1 mg/dL (2.5-4.9); Potassium 5.1 mmol/L (3.5-5.1)
[2019-05-30] MEDS: INSULIN -REGULAR HUMAN 50 UNIT/0.5 ML ML SQ SCH ×4 (07:30→21:00)
[2019-05-30] MEDS: GABAPENTIN 300 MG CAP PO SCH ×2 (08:19→21:59)
[2019-05-30] MEDS: carvediloL 12.5 MG TAB PO SCH ×2 (08:19→21:59)
[2019-05-30] MEDS: SEVELAMER CARBONATE 800 MG TABLET PO SCH ×3 (08:20→17:36)
[2019-05-30] MEDS: PANTOPRAZOLE 40MG TABLET PO SCH (08:20)
[2019-05-30] MEDS: TRAMADOL HCL 50 MG TAB PO PRN ×2 (08:20→16:00)
[2019-05-30] MEDS: HYDRALAZINE HCL 25 MG TABLET PO SCH ×3 (08:20→21:58)
[2019-05-30] MEDS ORDERED: GLUCAGON 1 MG/VIAL IM PRN (09:57)
[2019-05-30] MEDS ORDERED: D50W 25 GM/50 ML SYRINGE/VIAL IV PRN (09:57)
--- NOTE | 2019-05-30 13:33 | PN ---
Subjective: Currently patient lying in bed. He looks comfortable. He has no chest pain. No vomiti ng, no fever, no chills. Appetite is good. Pain is well controlled. Objective: Vital Signs: Blood pressure 135/74, respiratory rate 17, pulse 97, temperature 97, satur ating normal on room air. General: He is alert and oriented x3, does not look in any distress. HEENT: Atraumatic, normocephalic. PERRLA. Oral mucosa is moist. Neck: Supple. No JVD. No carotid bruits. Chest: Clear to auscultation. Good air entry. Heart: Regular rate and rhythm. S1, S2 normal. No gallop or murmur. Abdomen: Soft, nontender. No masses. No hepatosplenomegaly. Positive bowel sounds. Extremities: No clubbing, no cyanosis or edema. No calf tenderness. Right leg in immobilizer with significant swelling, mild warmth. Laboratory Data: Today showed none is done except for platelet count of 157. Assessment And Plan: 1.Fall with right patellar fracture and infusion. So far blood culture 1/4 bottles was positive. M eanwhile, white blood cell going up yesterday, but the last white blood cells going down from 16.5 to 15.3. Lab studies pending. We will continue patient on antibiotic with vancomycin. No fever. Ort ho following and plans for surgery on Saturday morning. 2.End-stage renal disease with hemodialysis, noncompliant. Labs today showed potassium 5.1, and Nep hrology following and proceeding with dialysis on schedule. 3.Anemia most likely of chronic disease secondary to renal insufficiency. Nephrology following. 4.Diabetes mellitus. Currently controlled with range between 80 and 147. Continue patient on insul in sliding scale. Hemoglobin A1c was checked, was 5.5, so patient most likely had prediabetes. 5.Hypertension, well controlled. Continue patient on p.r.n. hydralazine as well as oral. 6.PPI prophylaxis with Protonix. 7.We will start patient on deep venous thrombosis prophylaxis with heparin 5000 t.i.d. RUFINO/ZULEIMA Voice ID: [id number] Report ID: [id number]
[2019-05-30] MEDS: EPOETIN 4,000 UNIT/ML VIAL IV SCH (14:01)
[2019-05-30] MEDS: HEPARIN 5000 UNIT/ML 1 ML VIAL SQ SCH (17:34)
[2019-05-30] MEDS: INSULIN GLARGINE 100 UNITS/ML SQ SCH (22:00)
[2019-05-31] MEDS: CYCLOBENZAPRINE 10 MG TAB PO PRN ×2 (00:10→20:15)
[2019-05-31] MEDS: HEPARIN 5000 UNIT/ML 1 ML VIAL SQ SCH ×3 (00:10→16:29)
--- NOTE | 2019-05-31 01:03 | PN ---
Date of Progress Note: 05/30/2019 History: The patient was seen on dialysis. Patient waiting for Saturday for the surgery. Physical Examination: Vital Signs: Blood pressure 160/80, pulse of 88. Chest: Clear to auscultation. Heart: S1, S2. Regular. Abdomen: Soft, nontender. Extremities: No edema. Laboratory Data: H and H 9.2 and 29.4. Sodium 141, potassium 5.1, bicarb 26, BUN 50, creatinine 5.3 , calcium 8.1, magnesium 2.4, phos 5.5. Current Medications: The patient is on include, 1.Epogen. 2.Heparin. 3.Hydralazine. 4.Tylenol. 5.Gabapentin. 6.Renvela. 7.Zofran. Assessment And Plan: 1.End-stage renal disease, patient is still feeling weak. We will increase his dry weight by 0.5 kg and we will monitor the patient. 2.Hypertension, controlled, optimal. Continue current medication. 3.Diabetes as per primary. 4.Knee injury. Plan for OR as by ortho, Saturday. We will follow up. ROMAN Voice ID: [id number] Report ID: [id number]
[2019-05-31] MEDS: HYDROCODONE/APAP 7.5/325 MG TAB PO PRN ×3 (05:00→17:40)
[2019-05-31 06:38] LABS: Basophils % 0.2 % (0-1.3); Hematocrit 27.9 % (39.6-49.0); Lymphocytes % 8.8 % (15.3-44.8); MPV 9.2 fL (7.6-11.3); RBC Red Blood Cell Count 3.31 M/uL (4.33-5.43)
[2019-05-31 07:10] LABS: Albumin 2.7 g/dL (3.4-5.0); Bilirubin Total 0.2 mg/dL (0.2-1.0); Phosphorus 4.1 mg/dL (2.5-4.9); Potassium 4.7 mmol/L (3.5-5.1); Protein, Total 6.6 g/dL (6.4-8.2)
[2019-05-31] MEDS: TRAMADOL HCL 50 MG TAB PO PRN ×2 (07:13→16:12)
[2019-05-31] MEDS: INSULIN -REGULAR HUMAN 50 UNIT/0.5 ML ML SQ SCH ×4 (07:30→20:18)
[2019-05-31] MEDS: SEVELAMER CARBONATE 800 MG TABLET PO SCH ×3 (09:00→16:09)
[2019-05-31] MEDS: PANTOPRAZOLE 40MG TABLET PO SCH (09:02)
[2019-05-31] MEDS: HYDRALAZINE HCL 25 MG TABLET PO SCH ×3 (09:03→20:17)
[2019-05-31] MEDS: GABAPENTIN 300 MG CAP PO SCH ×2 (09:03→20:17)
[2019-05-31] MEDS: carvediloL 12.5 MG TAB PO SCH ×2 (09:03→20:17)
[2019-05-31 09:28] LABS: Blood Morphology Comment NOT SEEN (NOT SEEN); Platelet Estimate ADEQ; Urine White Blood Cell Casts OK
--- NOTE | 2019-05-31 11:56 | RAD REPORT ---
EXAM DESCRIPTION: RAD - Chest Single View - 05/31/2019 11:35 am CLINICAL HISTORY: Shortness of breath COMPARISON: May 28, May 25 TECHNIQUE: AP portable chest image was obtained 1026 hour . FINDINGS: No acute mass or infiltrate seen. Spiculated density in the left upper lung field is a kno wn finding and has been previously evaluated. No identifiable change. Lung base opacification similar to comparison. Heart and vasculature are normal. No measurable pleural effusion and no pneumothorax. No acute bony abnormality seen. No acute aortic finding. Dialysis catheter remains in place on the r ight IMPRESSION: No significant failure or volume overload findings. No acute lung parenchymal process. Known left upper lobe mass has not changed over the short interval.
--- NOTE | 2019-05-31 12:27 | P.PN ---
Subjective Date of Service: 05/31/19 Primary Care Provider: Dr. Arambula; Nephrology-Dr. Cruz Chief Complaint: right patella fracture Subjective: No new changes in knee immobilizer; pain and swelling improved Physical Examination - Vital Signs Temperature: 97.0 F Blood Pressure: 128/58 Pulse: 70 Respirations: 14 Pulse Ox (%): 99 - Physical Exam General: Alert, In no apparent distress Musculoskeletal: Other (RLE: swelling to right knee improved; ttp over over patella; no erythema noted; NVI distally; extensor mechanism not intact) - Studies Medications List Reviewed: Yes Assessment And Plan - Plan Billy is a 63 yo male with a right patella fracture -fracture is unstable and extensor mechanism is not intact and will need ORIF vs partial patellectomy with repair -repeat blood cultures remain negative; WBC normalizing; OK to proceed with surgery per infectious disease -knee immobilizer to right knee to minimize displacement -plan ORIF on SaturdayJun 01
--- NOTE | 2019-05-31 12:40 | PN ---
Subjective: Patient currently lying in bed. He continues to have pain in his ribs, shoulders, as we ll as in his knee. He is waiting for surgery pain medication. Has no nausea, no vomiting . Review of Systems: Otherwise negative. Objective: Vital Signs: Today blood pressure is 131/64, respiratory rate 14, pulse 68, temperature 96.9. General: The patient is alert and oriented x3. Does not look in any distress. HEENT: Atraumatic, normocephalic. PERRLA. Oral mucosa is moist. Neck: Supple. No JVD. No bruits. Chest: Clear to auscultation. Good air entry. Heart: Regular rate and rhythm S1, S2 normal. No gallop or murmur. Abdomen: Soft, nontender. No hepatosplenomegaly. Positive bowel sounds. Extremities: No clubbing, cyanosis, or edema. No calf tenderness. Right leg in immobilizer with si gnificant swelling over the knee and mild warmth. Laboratory Data: Today, CBC showed white blood cells 11, hemoglobin 9.1, platelets 150. Chemistry n ormal except for BUN of 40, creatinine of 4.59, albumin 2.7. Assessment And Plan: 1.Fall with right patellar fracture and effusion. Again, blood culture so far with 1/4 bottles posi tive for gram cocci in clusters, which most likely could be contamination. White blood cells today c ontinued to go down to 11,000. No more fever. Patient on IV antibiotic with vancomycin. Orthopedic planning to proceed with surgery on Saturday morning for right knee. 2.End-stage renal disease, on hemodialysis. Patient is noncompliant. Labs today showed normal pota ssium. Nephrology following. Patient on hemodialysis. 3.Anemia most likely secondary to chronic disease like renal insufficiency. Patient on Epoetin ____ Nephrology. 4.Hypertension, well controlled. Continue on p.r.n. hydralazine as well as Coreg. 5.Pain. Continue patient on hydrocodone, Flexeril, and Toradol. 6.Gastrointestinal prophylaxis with Protonix. 7.Deep vein thrombosis prophylaxis with heparin, hold before surgery. 8.Diabetes mellitus, well controlled in the range of 83 to 125. Continue patient on insulin sliding scale. Hemoglobin A1c was checked and was 5.5. Most likely patient has prediabetes. MT/MODL Voice ID: [id number] Report ID: [id number]
[2019-05-31] MEDS: INSULIN GLARGINE 100 UNITS/ML SQ SCH (20:17)
--- NOTE | 2019-05-31 20:19 | PN ---
Date of Progress Note: 05/31/2019 Subjective: The patient was admitted with trauma with injury to his knee. Patient is scheduled for surgery tomorrow. Physical Examination: Vital Signs: Blood pressure of 125/60, pulse of 69. Chest: Clear to auscultation. Heart: S1, S2. Regular. Abdomen: Soft, nontender. Extremities: Swelling on the right knee. Laboratory Data: H and H are 9.1/27.9. Sodium 139, potassium 4.7, bicarb 27, BUN 40, creatinine 4.5 , calcium 8.1, phosphorus 3.1. Current Medications: The patient on include: 1.Vancomycin. 2.Albuterol. 3.Epogen. 4.Carvedilol 12.5. 5.Hydralazine 50 t.i.d. 6.Gabapentin. 7.Renvela. 8.Pantoprazole. 9.Insulin. 10.Hydrocodone. Assessment And Plan: 1.End-stage renal disease. We will continue the patient on dialysis TTS. 2.Secondary hyperparathyroid. I am going to continue binder. 3.Anemia of chronic kidney disease. Continue SCARLETT. 4.Trauma with knee swelling. Patient plan for surgery tomorrow. 5.Light chain disease, stable. 6.Leukocytosis. Only one culture was positive, which is contamination. The rest of the blood cultu re was negative. ROMAN Voice ID: [id number] Report ID: [id number]
[2019-06-01] MEDS: HYDROCODONE/APAP 7.5/325 MG TAB PO PRN ×3 (00:20→23:16)
[2019-06-01 05:08] LABS: MPV 9.7 fL (7.6-11.3)
[2019-06-01 05:11] LABS: Platelet Estimate ND
[2019-06-01 05:16] LABS: Albumin 2.7 g/dL (3.4-5.0); Phosphorus 4.5 mg/dL (2.5-4.9); Potassium 4.9 mmol/L (3.5-5.1)
[2019-06-01] MEDS: MORPHINE 2 MG/ML SYR IV PRN ×4 (06:38→21:03)
[2019-06-01] MEDS: INSULIN -REGULAR HUMAN 50 UNIT/0.5 ML ML SQ SCH ×4 (07:30→21:00)
[2019-06-01] MEDS: SEVELAMER CARBONATE 800 MG TABLET PO SCH ×3 (08:00→17:11)
[2019-06-01] MEDS: PANTOPRAZOLE 40MG TABLET PO SCH (08:24)
[2019-06-01] MEDS: GABAPENTIN 300 MG CAP PO SCH ×2 (08:24→21:05)
[2019-06-01] MEDS: HYDRALAZINE HCL 25 MG TABLET PO SCH ×3 (08:24→21:05)
[2019-06-01] MEDS: carvediloL 12.5 MG TAB PO SCH ×2 (08:24→21:05)
[2019-06-01 09:01] LABS: Absolute Lymphocytes (CBC) 0.6 K/uL (0.7-4.9); Basophils % 0.2 % (0-1.3); Hematocrit 27.7 % (39.6-49.0); Lymphocytes % 5.8 % (15.3-44.8); MPV 8.7 fL (7.6-11.3)
[2019-06-01] MEDS ORDERED: FENTANYL CITR 100 MCG/2 ML ONE (11:51)
[2019-06-01] MEDS ORDERED: propofoL 200 MG/20 ML VIAL IV ONE (11:51)
[2019-06-01] MEDS ORDERED: LIDOCAINE 2% MPF 5 ML VIAL ONE (11:52)
[2019-06-01] MEDS ORDERED: MIDAZOLAM HCL 2 MG/2 ML INJ ONE (11:52)
[2019-06-01] MEDS ORDERED: NA CHLORIDE 0.9% 500 ML ONE (11:56)
[2019-06-01] MEDS ORDERED: CEFAZOLIN/SWI 1gm 1 GM/10 ML SYR ONE (12:09)
[2019-06-01] MEDS ORDERED: NA CHLORIDE 0.9% 250 ML ONE (12:38)
[2019-06-01] MEDS ORDERED: BUPIVACA 0.5%/EPI 0.0005%/PF 30 ML VIAL ONE (12:47)
--- NOTE | 2019-06-01 14:17 | P.PN ---
Subjective Date of Service: 06/01/19 Primary Care Provider: Dr. Arambula; Nephrology-Dr. Cruz Chief Complaint: right patella fracture Subjective: No new changes, No C/O voiced, C/O voiced (-c/o of sore throat) Review of Systems is unable to be obtained Physical Examination - Vital Signs Temperature: 97.0 F Blood Pressure: 145/66 Pulse: 62 Respirations: 16 Pulse Ox (%): 99 - Physical Exam General: Alert, Oriented x3 HEENT: Atraumatic, Normocephalic Neck: Other (right neck permacath , hyperpigmented neck ) Respiratory: Normal air movement, Crackles/rales Cardiovascular: Regular rate/rhythm, Normal S1 S2 Gastrointestinal: Normal bowel sounds, Soft and benign Musculoskeletal: Swelling (right knee braces +) Neurological: Normal speech, Normal strength at 5/5 x4 extr - Studies Laboratory Last Values WBC 11.0 K/uL (4.3-10.9) H 06/01/19 08:36 RBC 3.20 M/uL (4.33-5.43) L 06/01/19 08:36 Hgb 8.8 g/dL (13.6-17.9) L 06/01/19 08:36 Hct 27.7 % (39.6-49.0) L 06/01/19 08:36 MCV 86.6 fL (80-100) 06/01/19 08:36 MCH 27.6 pg (27.0-35.0) 06/01/19 08:36 MCHC 31.9 g/dL (32.0-36.0) L 06/01/19 08:36 RDW 16.6 % (12.1-15.2) H 06/01/19 08:36 Plt Count 138 K/uL (152-406) L 06/01/19 08:36 MPV 8.7 fL (7.6-11.3) D 06/01/19 08:36 Neutrophils % 83.9 % (41.7-73.7) H 06/01/19 08:36 Lymphocytes % 5.8 % (15.3-44.8) L 06/01/19 08:36 Monocytes % 6.8 % (3.3-12.3) 06/01/19 08:36 Eosinophils % 3.3 % (0-4.4) 06/01/19 08:36 Basophils % 0.2 % (0-1.3) 06/01/19 08:36 Absolute Neutrophils 9.2 K/uL (1.8-8.0) H 06/01/19 08:36 Absolute Lymphocytes 0.6 K/uL (0.7-4.9) L 06/01/19 08:36 Absolute Monocytes 0.7 K/uL (0.1-1.3) 06/01/19 08:36 Absolute Eosinophils 0.4 K/uL (0-0.5) 06/01/19 08:36 Absolute Basophils 0.0 K/uL (0-0.5) 06/01/19 08:36 Morphology Comment Not seen (NOT SEEN) 05/31/19 05:57 PT 11.8 SECONDS (9.5-12.5) 05/26/19 12:15 INR 1.00 05/26/19 12:15 APTT 23.9 SECONDS (24.3-36.9) L 05/26/19 12:15 Sodium 140 mmol/L (136-145) 06/01/19 04:18 Potassium 4.9 mmol/L (3.5-5.1) 06/01/19 04:18 Chloride 104 mmol/L (98-107) 06/01/19 04:18 Carbon Dioxide 28 mmol/L (21-32) 06/01/19 04:18 BUN 54 mg/dL (7-18) H 06/01/19 04:18 Creatinine 5.33 mg/dL (0.55-1.3) H* 06/01/19 04:18 Estimated GFR 13 mL/min (=/>90) L 06/01/19 04:18 Glucose 76 mg/dL (74-106) 06/01/19 04:18 POC Glucose 110 mg/dl (65-120) 06/01/19 09:00 Hemoglobin A1c 5.5 % (4.2-6.3) 05/27/19 10:26 Calcium 8.2 mg/dL (8.5-10.1) L 06/01/19 04:18 Phosphorus 4.5 mg/dL (2.5-4.9) 06/01/19 04:18 Magnesium 2.4 mg/dL (1.8-2.4) 05/30/19 05:35 Total Bilirubin 0.2 mg/dL (0.2-1.0) 05/31/19 05:57 AST 30 U/L (15-37) 05/31/19 05:57 ALT 20 U/L (12-78) 05/31/19 05:57 Alkaline Phosphatase 94 U/L (45-117) 05/31/19 05:57 Serum Total Protein 6.6 g/dL (6.4-8.2) 05/31/19 05:57 Albumin 2.7 g/dL (3.4-5.0) L 06/01/19 04:18 Globulin 3.9 g/dL (2.3-3.5) H 05/31/19 05:57 Albumin/Globulin Ratio 0.7 (1.1-1.8) L 05/31/19 05:57 Procalcitonin 0.17 ng/mL (<0.50) 05/28/19 07:35 Urine Color Yellow 05/26/19 00:05 Urine Appearance Clear 05/26/19 00:05 Urine pH 6.0 (5.0-7.0) 05/26/19 00:05 Ur Specific [place] 1.015 (1.005-1.030) 05/26/19 00:05 Urine Ketones Negative (NEG) 05/26/19 00:05 Urine Blood Negative (NEG) 05/26/19 00:05 Urine Nitrite Negative (NEG) 05/26/19 00:05 Urine Bilirubin Negative (NEG) 05/26/19 00:05 Urine Urobilinogen 0.2 mg/dL (0.2-1.0) 05/26/19 00:05 Ur Leukocyte Esterase Negative (NEG) 05/26/19 00:05 Urine RBC <5 /HPF (NONE SEEN) 05/26/19 00:05 Urine WBC <5 /HPF (<5) 05/26/19 00:05 Ur Squamous Epith Cells <5 /HPF (NONE SEEN) 05/26/19 00:05 Ur Urothelial Cells <5 /HPF (NONE SEEN) 05/26/19 00:05 Urine Bacteria <20 /HPF (NONE SEEN) 05/26/19 00:05 Urine Culture Reflexed Not needed 05/26/19 00:05 Urine Glucose Negative (NEG) 05/26/19 00:05 Urine Total Protein 2+ (NEG) H 05/26/19 00:05 Hep Bs Antibody, Quant 55 mIU/mL (>=10) 05/26/19 12:15 ABO/Rh B POSITIVE 05/26/19 10:33 Antibody Screen Negative 05/26/19 10:33 Crossmatch See Detail 05/26/19 10:33 Microbiology Data (last 24 hrs): 05/26/19 18:18 Blood - Blood Aerobic Blood Culture - Final No growth in 5 days. 05/26/19 18:18 Blood - Blood Anaerobic Blood Culture - Final 05/26/19 18:18 Blood - Blood Gram Stain - Final 05/26/19 18:15 Blood - Blood Aerobic Blood Culture - Final No growth in 5 days. 05/26/19 18:15 Blood - Blood Anaerobic Blood Culture - Final No growth in 5 days. Medications List Reviewed: Yes Assessment & Plan - Problems (Diagnosis) (1) Right hip pain Current Visit: Yes Status: Acute (2) Acute on chronic renal failure Onset Date: 10/09/17 Current Visit: No Status: Acute Qualifiers: Acute renal failure type: unspecified Chronic kidney disease stage: stage 3 (moderate) Qualified Code(s): N17.9 - Acute kidney failure, unspecified; N18.3 - Chronic kidney disease, stage 3 (moderate) (3) HTN (hypertension) Onset Date: 07/15/17 Current Visit: No Status: Acute Qualifiers: Hypertension type: essential hypertension Physician Review: Patient Assessed, Agree with Above Assessment and Plan Physician Review Additional Text: Impression: Fall with right patellar fracture with joint effusion End-stage renal disease on hemodialysis with hyperkalemia with noted recent noncompliance Anemia likely of chronic disease Hypertension Diabetes mellitus type 2 [id number] Plan: -negative blood culture till date - continue abx and ID follow up for now -continue plan for patellar surgery -c/w HD per renal team
--- NOTE | 2019-06-01 14:37 | RAD REPORT ---
EXAM DESCRIPTION: RAD - Knee Right 3 View - 06/01/2019 2:29 pm CLINICAL HISTORY: ORIF PATELLA IN OR COMPARISON: Knee Right 3 View dated 05/25/2019 FINDINGS: Fluoroscopy time 0.2 minutes
--- NOTE | 2019-06-01 14:40 | P.BOP ---
Preoperative diagnosis: right knee patella fracture Postoperative diagnosis: same Primary procedure: right knee partial patellectomy with patellar tendon repair Press Assistant And Feeder: NONE,NONE Estimated blood loss: 10 cc Specimen: none Findings: see dictation Anesthesia: General Complications: None Implants: fiberwire suture Fluids & blood products: per anesthesia record; TT: 68 mins @ 275 mmHg Transferred to: Recovery Room Condition: Good
[2019-06-01] MEDS ORDERED: ONDANSETRON 4 MG/2 ML VIAL ONE (15:11)
[2019-06-01] MEDS: HYDROMORPHONE HCL 1 MG/ML INJ ONE ×4 (15:12→15:27)
[2019-06-01] MEDS: LABETALOL HCL 100 MG/20 ML ONE ×2 (15:24→15:34)
[2019-06-01] MEDS ORDERED: HYDROMORPHONE HCL 1 MG/ML INJ ONE (15:42)
[2019-06-01] MEDS ORDERED: MEPERIDINE HCL 25 MG/0.5 ML ONE (15:45)
[2019-06-01 16:48] LABS: Hematocrit 29.3 % (39.6-49.0)
[2019-06-01 17:51] LABS: Potassium 5.7 mmol/L (3.5-5.1)
[2019-06-01] MEDS ORDERED: SOD POLYSTYREN SUL 15 GM/60 ML UCUP PO ONE (18:11)
[2019-06-01] MEDS: TRAMADOL HCL 50 MG TAB PO PRN (19:12)
[2019-06-01] MEDS: INSULIN GLARGINE 100 UNITS/ML SQ SCH (21:00)
[2019-06-02] MEDS: ALPRAZOLAM 0.25 MG TABLET PO PRN ×2 (00:17→21:54)
[2019-06-02] MEDS: HYDRALAZINE HCL 20 MG/ML VIAL IV PRN (00:40)
--- NOTE | 2019-06-02 01:12 | PN ---
Date of Progress Note: 06/01/2019 Chief Complaint: End-stage renal disease. History Of Present Illness: Patient underwent ORIF today. Patient is treated with IV medication for uncontrolled hypertension. Patient can tolerate p.o. intake surgery. Potassium level was elevated up to 5.7. Patient received Kayexalate 60 g by mouth. Review of Systems: Denies fever or chills. Physical Examination: Lungs: Clear to auscultation bilaterally. Heart: S1, S2. Abdomen: Soft, benign. Extremities: No edema. Impression And Plan: 1.End-stage renal disease. Patient will have dialysis tomorrow. Continue dialysis on Saturday, , Saturday. 2.Secondary hyperparathyroidism. Continue binders to stabilize phosphorus level. Currently phospho arelis level is maintained in the normal range. 3.Trauma with knee swelling. Patient had surgery for fracture and ORIF was done. 4.Light chain disease, stable. Patient will follow up with Hematology. 5.Leukocytosis. Blood culture was obtained and negative. EB/MODL Voice ID: [id number] Report ID: [id number]
[2019-06-02] MEDS: HYDROCODONE/APAP 7.5/325 MG TAB PO PRN ×4 (03:05→20:33)
[2019-06-02 05:12] LABS: Absolute Lymphocytes (CBC) 0.7 K/uL (0.7-4.9); Basophils % 0.4 % (0-1.3); Hematocrit 30.8 % (39.6-49.0); Lymphocytes % 3.9 % (15.3-44.8); MPV 8.9 fL (7.6-11.3); RBC Red Blood Cell Count 3.65 M/uL (4.33-5.43)
[2019-06-02 05:49] LABS: Potassium 5.4 mmol/L (3.5-5.1)
[2019-06-02 06:40] LABS: Anisocytosis 1+; Blood Morphology Comment NOTED (NOT SEEN); Platelet Estimate ADEQ
[2019-06-02] MEDS: INSULIN -REGULAR HUMAN 50 UNIT/0.5 ML ML SQ SCH ×4 (07:30→20:35)
[2019-06-02] MEDS: PANTOPRAZOLE 40MG TABLET PO SCH (08:28)
[2019-06-02] MEDS: HYDRALAZINE HCL 25 MG TABLET PO SCH ×3 (08:29→20:34)
[2019-06-02] MEDS: SEVELAMER CARBONATE 800 MG TABLET PO SCH ×3 (08:29→16:52)
[2019-06-02] MEDS: GABAPENTIN 300 MG CAP PO SCH ×2 (08:29→20:33)
[2019-06-02] MEDS: carvediloL 12.5 MG TAB PO SCH ×2 (08:29→20:34)
--- NOTE | 2019-06-02 12:29 | P.PN ---
Subjective Date of Service: 06/02/19 Primary Care Provider: Dr. Arambula; Nephrology-Dr. Cruz Chief Complaint: right patella fracture in knee immobilizer; reports pain with right knee at this time Physical Examination - Vital Signs Temperature: 97.9 F Blood Pressure: 146/67 Pulse: 81 Respirations: 16 Pulse Ox (%): 99 - Physical Exam General: Alert, In no apparent distress Musculoskeletal: Other (RLE: dressing c/d/i; +EHL/FHL/GSC/TA; sensation grossly intact distally) - Studies Microbiology Data (last 24 hrs): 05/26/19 18:18 Blood - Blood Aerobic Blood Culture - Final No growth in 5 days. 05/26/19 18:18 Blood - Blood Anaerobic Blood Culture - Final 05/26/19 18:18 Blood - Blood Gram Stain - Final Medications List Reviewed: Yes Assessment And Plan - Plan Billy is a 63 yo male with a right patella fracture s/p partial patellectomy with patellar tendon repair POD#1 -PT to mobilize; PWB with knee immobilizer -f/u PT recs for placement vs d/c home Physician Review: Patient Assessed, Agree with Above Assessment and Plan
[2019-06-02] MEDS: TRAMADOL HCL 50 MG TAB PO PRN (13:25)
--- NOTE | 2019-06-02 13:48 | P.PN ---
Subjective Date of Service: 06/02/19 Primary Care Provider: Dr. Arambula; Nephrology-Dr. Cruz Chief Complaint: right patella fracture Pt with ESRD, admitted for Knee taruma found to have patella fracture Today no overnight events S/P surgical intervention yesterday today WBC 17 HD today Physical exam general: Awake and alert , pt was agitated Neck; Supple, No elevated JVD hear: RRR, normal S1,2 no murmur or rub Chest: Basal rales Abdomen: Soft , Nt Extremities no eedema, Lt knee with cast Physical Examination - Vital Signs Temperature: 97.9 F Blood Pressure: 146/67 Pulse: 81 Respirations: 16 Pulse Ox (%): 99 - Studies Medications List Reviewed: Yes Assessment And Plan - Plan ESRD on HD TTsat HD today renal dose meds Rt patela fracture S/P surgical intervention PT/OT Anemia of chronic disease cont SCARLETT Hyperkalemia HD today MBD cont binders LEuckocytosis possibly reactive culture negative Cont Abx Physician Review: Patient Assessed, Agree with Above Assessment and Plan
[2019-06-02] MEDS ORDERED: GENTAMICIN SULF 80 MG/2ML INJ IV SCH (16:00)
[2019-06-02] MEDS ORDERED: GENTAMICIN 80 MG/100 ML BAG 80 MG/100 ML BAG IV SCH (16:15)
[2019-06-02] MEDS: EPOETIN 4,000 UNIT/ML VIAL IV SCH (17:00)
--- NOTE | 2019-06-02 20:06 | PN ---
Date of Progress Note: 06/02/2019 Subjective: Patient is seen and examined. Chart reviewed and case discussed with RN and Dr. Cricket talbert and Dr. Damioc. Patient had surgery yesterday. Refused placement of IV yesterday. Medications: List reviewed. Physical Examination: Vital Signs: Temperature 97.9, heart rate 81, blood pressure 146/67, respirations 16, O2 of 99% on r oom air. General: Awake, alert, oriented x3. Some mild distress due to pain. CV: S1, S2. Regular rate and rhythm. Peripheral pulses present. Respiratory: Moving air well bilaterally. No wheezing or stridor. Gastrointestinal: Abdomen is soft, nontender, nondistended. Positive bowel sounds. Extremities: No clubbing, cyanosis, edema. Neurologic: Nonfocal. Musculoskeletal: Right knee incision site clean, dry, intact. Laboratory Data: Sodium 139, potassium 5.4, chloride 106, CO2 of 26, BUN 64, creatinine 5.52, glucos e 102, calcium 8.4. WBC 17.6, H and H of 9.8 and 30.8, platelets 190, neutrophils 95%. Blood cultur es, no growth to date. Assessment: A 63-year-old male with: 1.Fall. 2.Right patellar fracture with joint effusion, status post patellectomy and tendon repair yesterday by Dr. Damico. We will continue with pain medications. Start physical therapy and restart heparin for deep venous thrombosis prophylaxis. 3.Anemia of chronic disease. Patient has end-stage renal disease. We will continue to monitor H an d H. transfuse as needed. 4.Essential hypertension, stable. 5.Diabetes mellitus type 2, [id number]-[id number] with end-stage renal disease. Continue sliding sc estelle insulin. Monitor blood glucose levels. 6.End-stage renal disease, on hemodialysis. We will continue as scheduled. Appreciate Nephrology i nput. Plan: We will continue with IV antibiotics. Patient's white blood cell count trending up. We will monitor for signs of sepsis, PT eval, referred to inpatient rehab. SA/MODL Voice ID: [id number] Report ID: [id number]
[2019-06-02] MEDS: INSULIN GLARGINE 100 UNITS/ML SQ SCH (20:35)
--- NOTE | 2019-06-02 23:09 | OP ---
Date of Procedure: 06/01/2019 Surgeon: Lalo Damico MD Preoperative Diagnosis: Right patella fracture. Postoperative Diagnosis: Right patella fracture. Procedure Performed: Right knee partial patellectomy with patellar tendon repair. Anesthesia: General LMA. Fluids: Per Anesthesia record. Estimated Blood Loss: 10 cc. Specimens: None. Complications: None. Implants: FiberWire suture. Tourniquet Time: 68 minutes at 275 mmHg. Indication For Procedure: Mr. Trejo is a 63-year-old male who presented to the ER with injury to his right knee after a fall as well as need for hemodialysis. X-rays in the emergency room demonstrated a comminuted displaced right patella fracture. Patient was admitted to the floor for dialysis. While on the floor, he was noted to have leukocytosis and had blood cultures with 1 of the blood cultures coming back positive with possible contaminant. Infectious Disease was consulted and recommended repeat blood cultures as well as antibiotics. Repeat blood cultures were negative and he was cleared to proceed with fixation. I discussed with the patient at length risks and benefits associated with operative and nonoperative treatment. He expressed understanding and elected to proceed with operative treatment. Description Of Procedure: After informed consent was obtained, the patient was identified in the preoperative holding area. The right lower extremity was marked. Patient was then brought back to the operating room. Spinal anesthesia was attempted and failed. The patient underwent general LMA anesthesia. The right lower extremity was then prepped and draped in usual sterile fashion. A time-out was initiated. The correct patient and procedure performed and identified. The patient did receive his preoperative prophylactic antibiotics. The right lower extremity was then exsanguinated and tourniquet was inflated to 275 mmHg. Approximately, a 10 cm longitudinal incision was made centered over the patella. Dissection was then taken down to the extensor mechanism. The fracture was identified. Hematoma was then evacuated. There was significant comminution of the distal pole of the patella and the fracture was noted on the distal third of the patella. Given the significant comminution, it was elected to proceed with partial patellectomy. Inferior pole remnants were then debrided using a 15-blade as well as a rongeur and the remaining patellar tendon was noted. The wound was then irrigated thoroughly with normal saline. The patellar tendon was then whipstitched with a #2 FiberWire medially and laterally and there were 4 core sutures remaining. Next, attention was taken to the patella. A curette was then used to create a trough in the znn-qw-zbszvkca half of the patella. Drill bit was then used to drill 3 holes with 1 center, 1 medial, 1 lateral for passage of the sutures. A suture passer was then used to pull out the core sutures and the core sutures were then tied over a bone bridge at the superior aspect of the patella. There was overall good reduction of patellar tendon onto the undersurface of the patella or the inferior portion of patella. The knee was then able to be ranged from about 0 to 70 degrees with no separation at the repair site. The wound was then irrigated thoroughly with normal saline. Deep fascia was approximated using a 0 Vicryl, extensor metastatic mechanism and retinacular tears were approximated using #1 Vicryl, subcutaneous tissue was approximated using a 2-0 Vicryl, and skin was approximated using leann. Sterile dressings were applied. Patient was placed in a knee immobilizer, awakened, and transferred to PACU in stable condition. Postoperative Plan: He will be touchdown weightbearing on the right lower extremity and his weightbearing will be progressed over time. Physical Therapy will be consulted to aid with mobilization. He will follow up in my clinic in 2 weeks for wound check and staple removal. CV/MODL Voice ID: [id number] Report ID: [id number] AKTIE
[2019-06-02] MEDS: MORPHINE 2 MG/ML SYR IV PRN (23:31)
[2019-06-03] MEDS: MORPHINE 2 MG/ML SYR IV PRN ×3 (03:52→16:15)
[2019-06-03 04:14] LABS: Absolute Lymphocytes (CBC) 0.9 K/uL (0.7-4.9); Basophils % 0.4 % (0-1.3); Hematocrit 27.9 % (39.6-49.0); Lymphocytes % 6.4 % (15.3-44.8); RBC Red Blood Cell Count 3.31 M/uL (4.33-5.43)
[2019-06-03] MEDS: HYDROCODONE/APAP 7.5/325 MG TAB PO PRN ×2 (06:16→19:55)
[2019-06-03] MEDS: INSULIN -REGULAR HUMAN 50 UNIT/0.5 ML ML SQ SCH ×4 (07:30→21:40)
--- NOTE | 2019-06-03 08:00 | PN ---
Subjective: Patient is lying in bed, getting dialyzed, not in any acute distress. Not on any antibi otic at this time. Patient was on vancomycin for Staph coag-negative, continue to have leukocytosis. Objective: Vital Signs: Temperature 97.9, pulse 81, respirations 16, blood pressure 146/67. Lungs: Basal crackles. Heart: S1, S2. Regular. Abdomen: Soft, nontender. Bowel sounds present. Extremities: Right knee in brace. Laboratory Data: Shows blood culture from May 28, has no growth. Assessment And Plan: A 63-year-old male with leukocytosis, status post surgical repair. We will rec ommend to start patient on vancomycin with each dialysis, total course of 3-4 weeks. Continue to mon itor CBC and leukocytosis. We will follow the patient closely. NF/MODL Voice ID: [id number] Report ID: [id number]
[2019-06-03] MEDS: SEVELAMER CARBONATE 800 MG TABLET PO SCH ×3 (08:03→16:38)
[2019-06-03] MEDS: carvediloL 12.5 MG TAB PO SCH ×2 (08:03→21:38)
[2019-06-03] MEDS: GABAPENTIN 300 MG CAP PO SCH ×2 (08:03→21:39)
[2019-06-03] MEDS: HYDRALAZINE HCL 25 MG TABLET PO SCH ×3 (08:04→21:38)
[2019-06-03] MEDS: PANTOPRAZOLE 40MG TABLET PO SCH (08:04)
--- NOTE | 2019-06-03 16:13 | PN ---
Subjective: Patient lying in bed. Denies any headache, nausea, vomiting, chest pain, abdominal pain , constipation, or diarrhea. Objective: Vital Signs: Temperature 97.5, pulse 75, respirations 16, blood pressure 132/62. Lungs: Basal crackles. Heart: S1, S2. Regular. Abdomen: Soft, nontender. Bowel sounds present. Extremities: No edema. Laboratory Data: WBC 13.3, down from 17.6; hemoglobin 8.9; platelets 145. Cultures are negative sin ce May 28. Assessment And Plan: Mr. Trejo with end-stage renal disease with leukocytosis. Cultures are negati ve. Continue current antibiotic and supportive care. We will follow patient as needed. Bacteremia is improving. We will follow patient and continue antibiotic for 3 to 4 weeks. NF/MODL Voice ID: [id number] Report ID: [id number]
[2019-06-03] MEDS: ENOXAPARIN 30 MG/0.3 ML SQ SCH (16:38)
--- NOTE | 2019-06-03 17:45 | PN ---
Date of Progress Note: 06/03/2019 Subjective: Patient seen and examined. Chart reviewed and case discussed with RN and Dr. Cruz. Patient seems to be in better spirits today, eager to start working with his physical therapist. Medication List: Reviewed. Physical Examination: Vital Signs: Temperature 97.5, heart rate 75, blood pressure 132/63, respirations 16, O2 98% on room air. General: Awake, alert, oriented x3. Some mild distress. CV: S1, S2. Regular rate and rhythm. Peripheral pulses present. Respiratory: Moving air well bilaterally. No wheezing or stridor. No use of accessory muscles. Gastrointestinal: Abdomen is soft, nontender, nondistended. Positive bowel sounds. No guarding or rigidity. Extremities: No clubbing or cyanosis. Minimal edema of the right lower extremity. Neurologic: Nonfocal. Laboratory Data: WBC 13.3, H and H 8.9 and 27.9, platelets 145, neutrophils 81%. Blood cultures, no growth to date. Assessment: A 63-year-old male with: 1.Status post fall. 2.Right patellar fracture with joint effusion, status post patellectomy and tendon repair by Dr. Tadeo king, postoperative day #1. Continue with pain medications. Patient to initiate working with Physical therapy. We will switch to Lovenox for deep venous thrombosis prophylaxis. 3.End-stage renal disease, on hemodialysis. Continue dialysis as scheduled. Appreciate Dr. Torres granger's input. 4.Hyperkalemia. We will correct. Continue to monitor. 5.Anemia of chronic disease secondary to end-stage renal disease. We will monitor H and H. no need for acute transfusion at this time. 6.Essential hypertension, stable. 7.Diabetes mellitus type 2, uhk-[id number]-hmmmxnwgm, with end-stage renal disease. We will continue s liding scale insulin. Monitor blood glucose levels. 8.Deep venous thrombosis prophylaxis. Lovenox. Plan: The patient still has leukocytosis. We will continue with vancomycin. Dr. Gomes with Infect ious Disease recommends vancomycin with dialysis for 3-4 weeks. Continue to monitor. The patient is at risk for getting infection due to recent hardware placement. Plan transfer to rehab once accepte luisito AGUIRRE/ZULEIMA Voice ID: [id number] Report ID: [id number]
[2019-06-03] MEDS: TRAMADOL HCL 50 MG TAB PO PRN (21:39)
[2019-06-03] MEDS: INSULIN GLARGINE 100 UNITS/ML SQ SCH (21:41)
[2019-06-03] MEDS: ALPRAZOLAM 0.25 MG TABLET PO PRN (23:21)
--- NOTE | 2019-06-04 00:04 | PN ---
Date of Progress Note: 06/03/2019 Subjective: Patient was admitted with fall. Patient had surgery, this is day #3. Physical Examination: Vital Signs: Blood pressure 137/65, pulse of 82. Chest: Clear to auscultation. Heart: S1, S2. Systolic murmur. Abdomen: Soft, nontender. Extremities: Cast on the right leg. No edema. Neurologic: Alert. No focal. Laboratory Data: H and H 8.9/27.9. Sodium 139, potassium 5.4, bicarb 26, BUN 64, creatinine 5.5, ca lcium 8.4. Current Medications: The patient on include: 1.Breathing treatment. 2.Lovenox. 3.Carvedilol 12.5 b.i.d. 4.Hydralazine 50 t.i.d. 5.Alprazolam. 6.Gabapentin. 7.Pantoprazole. Assessment And Plan: 1.End-stage renal disease. We will continue the patient on dialysis. Schedule for dialysis tomorro w. 2.Hyperkalemia. We will dialyze the patient on low potassium bath. 3.Hypertension, controlled optimal. Continue current treatment. 4.Knee injury secondary to fall, status post surgery, follow up with Orthopedics. 5.Continue PT, OT. MALINDA/ZULEIMA Voice ID: [id number] Report ID: [id number]
[2019-06-04] MEDS: HYDROCODONE/APAP 7.5/325 MG TAB PO PRN ×3 (03:11→17:50)
[2019-06-04 04:38] LABS: Basophils % 0.1 % (0-1.3); Hematocrit 26.5 % (39.6-49.0); MPV 9.5 fL (7.6-11.3); RBC Red Blood Cell Count 3.09 M/uL (4.33-5.43)
[2019-06-04 04:52] LABS: Albumin 2.6 g/dL (3.4-5.0); Bilirubin Total 0.2 mg/dL (0.2-1.0); Protein, Total 6.5 g/dL (6.4-8.2)
[2019-06-04] MEDS: INSULIN -REGULAR HUMAN 50 UNIT/0.5 ML ML SQ SCH ×3 (07:30→17:50)
[2019-06-04] MEDS: GABAPENTIN 300 MG CAP PO SCH (08:17)
[2019-06-04] MEDS: SEVELAMER CARBONATE 800 MG TABLET PO SCH ×3 (08:17→17:50)
[2019-06-04] MEDS: PANTOPRAZOLE 40MG TABLET PO SCH (08:18)
[2019-06-04] MEDS: HYDRALAZINE HCL 25 MG TABLET PO SCH ×2 (08:18→13:40)
[2019-06-04] MEDS: carvediloL 12.5 MG TAB PO SCH (08:18)
[2019-06-04] MEDS: TRAMADOL HCL 50 MG TAB PO PRN (08:22)
[2019-06-04 09:55] VITALS: O2SAT 97
[2019-06-04] MEDS ORDERED: EPOETIN ALFA 10,000 UNIT/ML VIAL IV SCH (11:32)
[2019-06-04 12:07] VITALS: BP 124/61; TEMP 96.9
--- NOTE | 2019-06-04 16:44 | PN ---
Date of Progress Note: 06/04/2019 Subjective: Patient was admitted with fall, injury to his knee with a fracture status post surgery t mayur day 3 after surgery. Patient start ambulating using the walker with physical therapy. Physical Examination: Vital Signs: Blood pressure 133/64, pulse of 69. Chest: Faint rales on the base. Heart: S1, S2. Systolic murmur. Abdomen: Soft, nontender. Extremities: Cast on the right leg. Neurologic: Alert. No focal, no tremor. Laboratory Data: WBC 12.7, H and H of 8.4/26.5, platelets 140. Sodium 140, potassium 4, bicarb 30, BUN 42, creatinine 5, calcium of 8. Medications: Current medications the patient on include gentamicin, vancomycin. Lovenox, Epogen, ca rvedilol 12.5, hydralazine 50 t.i.d., gabapentin, Renvela 800 t.i.d. Assessment And Plan: 1.End-stage renal disease, normal volume. I am going to continue the patient on dialysis. Patient is going to be dialyzed on low-potassium bath. 2.Hypertension, controlled, optimal. Continue current medication. 3.Anemia of chronic kidney disease/light chain disease. Patient on SCARLETT. I can go ahead and monitor . We will increase the Epogen to 5000. 4.Knee fracture status post surgery. Follow up with Orthopedic and Primary. Continue PT/OT. MALINDA/ZULEIMA Voice ID: [id number] Report ID: [id number]
[2019-06-04] MEDS: ENOXAPARIN 30 MG/0.3 ML SQ SCH (17:54)
--- NOTE | 2019-06-05 00:02 | DS ---
Date of Discharge: 06/04/2019 Consultants: 1.Dr. French and Dr. Cruz and Dr. Calderon with Nephrology. 2.Dr. Gomes with Infectious Disease. 3.Dr. Damico with Orthopedics. Procedures: On 06/02/2019, right patellectomy and patellar tendon repair. Admitting Diagnoses: 1.End-stage renal disease. 2.Right patellar fracture. 3.Uncontrolled hypertension. 4.Diabetes mellitus type 2. 5.Anemia. 6.Noncompliance. Discharge Diagnoses: 1.Right patellar fracture, status post partial patellectomy and tendon repair. 2.Status post fall. 3.End-stage renal disease, on hemodialysis. 4.Hyperkalemia, corrected. 5.Anemia of chronic disease secondary to end-stage renal disease. 6.Essential hypertension, stable. 7.Diabetes mellitus type 2, non-insulin requiring with end-stage renal disease. 8.Noncompliance. Hospital Course: The patient is a 63-year-old male, comes in with missing hemodialysis. Patient is homeless, however, has recently gotten an apartment. He also has knee pain and had fallen 5 days ago . Imaging studies were done. Patient was found to have right patellar fracture. Patient was admitt ed for further evaluation. He was seen by Dr. Damico for his patellar fracture and was taken to the OR for procedure as mentioned above. He did well postoperatively and was started on Lovenox for deep venous thrombosis prophylaxis . Patient did work well with PT as well. His pain was controlled. Regarding his end-stage renal disease, he was continued on hemodialysis as scheduled. Overall, he di d well. He did have some electrolyte abnormalities, which were corrected. The patient's white blood cell count trended down. His hemoglobin remained stable. Patient was then referred to inpatient re hab for physical therapy and was accepted. His blood cultures were negative. He was also seen by In fectious Disease, Dr. Gomes, who recommended 3-4 weeks of IV antibiotics. The patient will be on wv ncomycin with dialysis. Patient was then transferred to rehab after being accepted. Condition: Stable. Activity: As per rehab. Medications: As per medication reconciliation list. Diet: Renal diet. Followup: With primary care physician in 2-3 days. Follow up with Dr. Damico, orthopedics in 7 to 10 days for wound check. Follow up with Nephrology in 2 weeks, Dr. Cruz. Follow up with Infectious Disease, Dr. Gomes in 2 weeks. Return to ER for worsening condition. Physical Examination: General: Awake, alert, and oriented x3. CV: S1, S2. Respiratory: Moving air well bilaterally. Abdomen: Abdomen is soft, nontender, nondistended. Positive bowel sounds. Extremities: No clubbing, cyanosis, or edema. Musculoskeletal: Right knee bandaged. Clean, dry, intact. Neurologic: Nonfocal. Total time spent discharging the patient was 36 minutes. /MODL Voice ID: [id number] Report ID: [id number]
== END 2019-06-04 18:50 | DRG 488 ==
LOC: ER 09:11 → ERHOLD 14:08 → 4TH 21:23 → OBSVTOIN 05-27 08:41
PROVIDERS: ADMIT Internal Medicine; ATTEND Family Medicine
PROC: 5A1D70Z Performance of Urinary Filtration, Intermittent, Less than 6 Hours Per Day (ICD-10-PCS; 2019-05-28)
PROC: 5A1D70Z Performance of Urinary Filtration, Intermittent, Less than 6 Hours Per Day (ICD-10-PCS; 2019-05-30)
PROC: 0LQQ0ZZ Repair Right Knee Tendon, Open Approach (ICD-10-PCS; 2019-06-01)
PROC: 0QBD0ZZ Excision of Right Patella, Open Approach (ICD-10-PCS; principal; 2019-06-01 12:00)
PROC: 5A1D70Z Performance of Urinary Filtration, Intermittent, Less than 6 Hours Per Day (ICD-10-PCS; 2019-06-02)
PROC: 5A1D70Z Performance of Urinary Filtration, Intermittent, Less than 6 Hours Per Day (ICD-10-PCS; 2019-06-04)
DX: S82.031A Displaced transverse fracture of right patella, initial encounter for closed fracture (principal); N18.6 End stage renal disease; I12.0 Hypertensive chronic kidney disease with stage 5 chronic kidney disease or end stage renal disease; S22.41XA Multiple fractures of ribs, right side, initial encounter for closed fracture; J81.1 Chronic pulmonary edema; N25.81 Secondary hyperparathyroidism of renal origin; E87.5 Hyperkalemia; E11.22 Type 2 diabetes mellitus with diabetic chronic kidney disease; D63.1 Anemia in chronic kidney disease; E78.5 Hyperlipidemia, unspecified; R91.1 Solitary pulmonary nodule; D72.829 Elevated white blood cell count, unspecified; Z86.73 Personal history of transient ischemic attack (TIA), and cerebral infarction without residual deficits; Z91.15 Patient's noncompliance with renal dialysis; W19.XXXA Unspecified fall, initial encounter; Y92.9 Unspecified place or not applicable
CPT/HCPCS: 36415; 36430; 71045; 80048; 80053; 80069; 80202; 81003; 81015; 82947; 83036; 83735; 84100; 84145; 85014; 85018; 85025; 85049; 85610; 85730; 86317; 86850; 86900; 86901; 87040; 87205; 90935; 93005; 94760; 96365; 96366; 96375; 97110; 97116; 97161; 97530; 99285; G0378; J0360; J0690; J1170; J1580; J1644; J1650; J1815; J2020; J2175; J2250; J2270; J2405; J2704; J3010; J7030; J7040; P9016; Q5105

== ENCOUNTER 2019-06-04 10:12 | Inpatient (IN) | payer OTHER ==
--- NOTE | 2019-06-04 14:03 | R.PREADM ---
SCREENING DATE AND TIME 06/04/2019 11:09 (RAIL GANG SUPERVISOR) ANTICIPATED REHAB ADMISSION DATE 06/06/2019 REFERRING FACILITY [facility] REFERRAL DATE AND TIME 06/04/2019 11:09 (RAIL GANG SUPERVISOR) REFERRAL OFFICE PHONE [phone] REFERRAL ROOM# [id number] ACUTE ADMIT DATE 05/27/2019 Previous Rehabilitation(s): No. ACUTE WET PROCESS MILLER HEAD/DC SUPPLY CHAIN VICE PRESIDENT Mya Chapman REFERRING PHYSICIAN [facility] [place] REHAB FACILITY [facility] CLINICAL LIAISON Tarng Portillo PHYSICIAN REVIEWER Dr. Darrell Grimm M.D. MR# [id number] NAME BILLY TREJO ADDRESS [id number] PHONE [facility] [id number] DATE OF 1955 AGE 63 SSN# [id number] GENDER male MARITAL STATUS Single (Never ) RACE black ADMIT FROM 02 - [facility] PRE-HOSPITAL LIVING SETTING 01 - Home (private home/apt. board/care, assisted living, alf, transitional living) HOME TYPE AND DETAILS Type of home: apartment # of levels in the residence: 1 # of steps to enter the residence: 10 # of steps within the residence: 0 PRE-HOSPITAL LIVING WITH Alone FAMILY SUPPORT No PRIMARY FAMILY CONTACT NAME Scarlet Trejo PRIMARY FAMILY CONTACT PHONE PHONE PRIMARY FAMILY CONTACT ON ADM.? no IS PRIMARY FAMILY CONTACT AUTH. REP.? no 1ST EMERGENCY CONTACT Scarlet Trejo 1ST CONTACT PHONE PHONE 1ST CONTACT ON ADM. no IS 1ST CONTACT AUTH. REP.? no PHONE 2ND CONTACT ON ADM.? no PATIENT EMPLOYMENT STATUS Retired (for age) PATIENT EMPLOYER No Employer PAYOR INFORMATION: 1ST PAYOR NAME MEDICARE 1ST PAYOR PHONE [phone] 1ST PAYOR INJURY/ILLNESS DUE TO ACCIDENT? No ANOTHER REPUBLICAN RESPONSIBLE? No PRIMARY REHAB/ACUTE DIAGNOSIS: ESRD Right Patella Fracture ONSET DATE 05/27/2019 REHAB IMPAIRMENT CATEGORY (VINCE): 20 Miscellaneous (Misc) does NOT meet 60% rule PRIMARY DIAGNOSIS-RELATED SURGERIES: No surgeries related to the primary diagnosis were performed. COMORBID REHAB/ACUTE DIAGNOSES: - Tier 1 Dependence on renal dialysis (Z99.2) - Non-Tiered Type 2 diabetes mellitus with diabetic neuropathy, unspecified (E11.40) - N/A ESRD HTN Hyperlipidemia History of CVA Anemia Drug Abuse CHF CAD INTERVENTIONS: - CAD 02 sats Activity management Medications VS RISK FOR COMPLICATIONS: - CAD CHF Cardiac Arrest AL Pain SUMMARY OF ACUTE HOSPITALIZATION: Pt. is a 63 yo Right-handed black male. On 05/27/2019 he was admitted to [facility] with diagnosis ESRD. His impairment category is Medically Complex Conditions 17 - Terminal Care (17.6). Pre-morbidly, Pt. was independent/mod-I in Locomotion, Safety Awareness, Balance, Social Cognition, T ransfers Control, Sphincter Control, Self-Care, Communication, and Endurance; and he had good Locomot ion, Balance, Safety Awareness, Social Cognition, Transfers Control, Sphincter Control, Self-Care, Co mmunication, and Endurance. Currently, he has deficits of Locomotion, Balance, Safety Awareness, Social Cognition, Transfers Cont rol, Self-Care, and Endurance. Pt. is now referred to [facility] for acute in-patient rehabilitation in order to maximize patient's functional independence in activities of daily living, strength, ROM, and mobi lity. Patient has realistic goal of being discharged at assistance level 6-Luz Elena to reside at Home with Fam juvenal/Relatives. Billy Trejo is a 63 year old male that lives alone in a 2nd floor apartment. On 05/27/2019, he fell 5 days ago and hit his right knee and chest and developed right knee pain associated with swelling and tenderness. He was having difficulty to ambulate and some chest tenderness but he did not lose consciousness after he fell. He missed 1-1/2 weeks of hemodialysis and do not feel good and called 911 and was admitted to [facility] and treated. He is now medically stable but in need of 24-hour nursing, doctor supervision and oversite while receiving acti ve and ongoing intensive (PT, reasonably expected to participate in 3hours of therapy a day/15 hours per week and receive care with an intensive interdisciplinary approach. PAST MEDICAL HISTORY Anemia CAD CHF Dependence on renal dialysis (Z99.2) Drug Abuse ESRD HTN History of CVA Hyperlipidemia Type 2 diabetes mellitus with diabetic neuropathy, unspecified (E11.40) PAST SURGICAL HISTORY: Colonoscopy Endoscopy Dialysis catheter placement MEDICATION ALLERGIES: Corticosteroids ENVIRONMENTAL ALLERGIES: None Known - Substance Allergies None Known - Other Allergies None Known CODE STATUS: Full code WEIGHT/HEIGHT/BMI: WEIGHT 169 lbs HEIGHT 5' 11" BMI 23.6 DIET: - Diet Type Regular - Diet - Solid Texture Regular - Diet - Liquid Texture Regular - Tube Feed N/A REVIEW OF SYSTEMS: - Gen Alert and awake Lying in bed No apparent distress Oriented to: person, time, and place - Vital Signs Temperature: 97.1 F SBP/DBP: 133/64 Pulse: 69 Resp: 14 Vital signs stable, afebrile - CVS RRR VITAL SIGNS Temperature: 97.1 F SBP/DBP: 133/64 Pulse: 69 Resp: 14 Vital signs stable, afebrile MEDICATIONS/TREATMENT: Other- See attached MAR (Medication Administration Record). See attached MAR (Medication Administration Record) Billy [email or web address].[email or web address]. CURRENT SPHINCTER CONTROL: Pre-hospital bladder status: continent # of bladder accidents in the last 7 days prior to screenin Pre-hospital bowel status: continent # of bowel accidents in the last 7 days prior to screenin Last Bowel Movement Date: 06/02/2019 CURRENT LOCOMOTION STATUS: distance walked 10 feet DETAILED CURRENT FUNCTIONAL STATUS: - Bladder accident frequency: Ind - No accidents in the past 7 days - Bowel accident frequency: Ind - No accidents in the past 7 days - Walking score based on distance walked: 0(N/A) score based on distance walked: 1(<=50ft) - Wheelchair score based on distance traveled: 0(N/A) QI SCORES: - Self-Care A. Eating 05-Setup or clean-up assistance B. Oral hygiene 05-Setup or clean-up assistance C. Toileting hygiene 04-Supervision or touching assistance E. Shower/bathe self 04-Supervision or touching assistance F. Upper body dressing 04-Supervision or touching assistance G. Lower body dressing 03-Partial/moderate assistance H. Putting on/taking off footwear 03-Partial/moderate assistance - Mobility A. Roll left and right 04-Supervision or touching assistance B. Sit to lying 04-Supervision or touching assistance C. Lying to sitting on side of bed 04-Supervision or touching assistance D. Sit to stand 04-Supervision or touching assistance E. Chair/okq-wx-zgboc transfer 03-Partial/moderate assistance F. Toilet transfer 03-Partial/moderate assistance G. Car transfer 10-Not attempted due to environmental limitations I. Walk 10 feet 03-Partial/moderate assistance J. Walk 50 feet with two turns 88-Not attempted due to medical condition or safety concerns K. Walk 150 feet 88-Not attempted due to medical condition or safety concerns L. Walking 10 feet on uneven surfaces 88-Not attempted due to medical condition or safety concerns M. 1 step (curb) 88-Not attempted due to medical condition or safety concerns N. 4 steps 88-Not attempted due to medical condition or safety concerns O. 12 steps 88-Not attempted due to medical condition or safety concerns P. Picking up object 88-Not attempted due to medical condition or safety concerns R. Wheel 50 feet with two turns 88-Not attempted due to medical condition or safety concerns S. Wheel 150 feet 88-Not attempted due to medical condition or safety concerns - Bladder and Bowel Bladder continence 5-No urine output Bowel continence 0-Always continent - Endurance Fair - Balance Fair - Safety Awareness Fair CURRENT [facility]. DEFICITS: Self-Care, Mobility, Endurance, Balance, and Safety Awareness CURRENT / PREVIOUS ASSISTIVE DEVICES[facility] Shower Chair Tub Bench Wheelchair HISTORY OF FALLS. HAS THE PATIENT HAD TWO OR MORE FALLS IN THE PAST YEAR OR ANY FALL WITH INJURY IN T HE PAST YEAR?: Yes PRIOR SURGERY. DID THE PATIENT HAVE MAJOR SURGERY DURING THE 100 DAYS PRIOR TO ADMISSION?: No THERAPY NOTES FROM ACUTE CARE: Attached. SPECIAL NEEDS: - Safety Concerns Skin breakdown precautions needed due to skin breakdown risk PATIENT NEEDS ACTIVE AND ONGOING THERAPEUTIC INTERVENTION OF MULTIPLE THERAPY DISCIPLINES, INCLUDING: - Dietary and Nutrition Adequate Nutrition. Nutritional Education. Nutritional Supplements. PATIENT NEEDS CLOSE MEDICAL SUPERVISION BY A REHABILITATION PHYSICIAN FOR: Coordination of Treatment Team Diabetes Management Medical and Co-Morbidity Management PATIENT REQUIRES 24X7 REHAB NURSING FOR MEDICAL AND FUNCTIONAL MGT. OF THE FOLLOWING DEFICITS: Disease Management Medication Management Patient/Family Education Providing Safe Environment PATIENT REQUIRES INTENSIVE, COORDINATED INTERDISCIPLINARY APPROACH TO REHAB: Arranging Home Equipment/Services Discharge Planning Family Intervention/Training Tub Washer/Case Management PATIENT REHAB POTENTIAL: TamaraKenia AMANDA is able and expected to receive 3 hours of individualized therapy daily on at least 5 of ev kieran 7 days Nalini TREJO's prognosis for significant practical improvement within a reasonable period of time appear s Good Expected level of measurable improvement will be of a practical value to Nalini TREJO's functional capac ity or adaptations to impairments Has a viable Discharge Plan Medically appropriate; condition is sufficiently stable to participate in intensive rehab program DISCHARGE PLAN: - Estimated Length of Stay (days) 13. - Consensus on plan Discharge plan has been discussed with primary caregiver. Patient/Family is in agreement with the aron n. Primary caregiver is in agreement with the plan. - Patient/Family Goals Return home with assistance. - Planned Living Setting Upon Discharge Home, to live with Family/Relatives. Transitional Living. RECOMMENDED CARE LEVEL: IRF RECOMMENDATION DETAILS: Recommended Admission to Comprehensive Rehabilitation Program to Increase Functional [place] SCREENER'S COMPLETENESS CONFIRMATION: - Screening Confirmation The patient data collection on this preadmission screening form is finished PHYSICIANS REVIEW AND ADMISSION DETERMINATION Admit - Based on my review of the Pre-Admission Screening results, in my medical judgment and experie nce, I concur with the findings and recommend admission to [facility], as this patient requires an IRF level of care. SIGNATURE PANEL: Clinical Liaison - [electronically] signed by Trang Portillo on 06/04/2019 at 13:58 (RAIL GANG SUPERVISOR) Physician Reviewer - [electronically] signed by Dr. Darrell Grimm M.D. on 06/04/2019 at 14:02 (RAIL GANG SUPERVISOR )
[2019-06-04] MEDS ORDERED: ALBUTEROL 2.5 MG/3 ML NEB SOL NEB PRN (19:00)
[2019-06-04] MEDS ORDERED: ACETAMINOPHEN 500 MG TAB PO PRN (19:00)
[2019-06-04] MEDS ORDERED: GLUCAGON 1 MG/VIAL IM PRN (19:22)
[2019-06-04] MEDS ORDERED: D50W 25 GM/50 ML SYRINGE/VIAL IV PRN (19:22)
[2019-06-04] MEDS ORDERED: Gentamicin Inj 80 MG in NA CHLORIDE 0.9% 100 ML IVPB SCH (20:00)
[2019-06-04] MEDS: GABAPENTIN 300 MG CAP PO SCH (20:07)
[2019-06-04] MEDS: TRAMADOL HCL 50 MG TAB PO PRN (20:07)
[2019-06-04] MEDS ORDERED: VANCOMYCIN 1 GM in NA CHLORIDE 0.9% 500 ML IVPB SCH (21:00)
[2019-06-04] MEDS ORDERED: carvediloL 12.5 MG TAB PO SCH (21:00)
[2019-06-04] MEDS: INSULIN GLARGINE 100 UNITS/ML SQ SCH (21:16)
[2019-06-04] MEDS: HYDRALAZINE HCL 25 MG TABLET PO SCH (21:16)
[2019-06-04] MEDS: INSULIN -REGULAR HUMAN 50 UNIT/0.5 ML ML SQ SCH (21:17)
[2019-06-04] MEDS: HYDROCODONE/APAP 7.5/325 MG TAB PO PRN (23:38)
[2019-06-04] MEDS: ALPRAZOLAM 0.25 MG TABLET PO PRN (23:38)
[2019-06-05 02:22] LABS: Urine Appearance CLOUDY; Urine Blood NEGATIVE (NEG); Urine Color YELLOW; Urine Glucose NEGATIVE (NEG); Urine Protein 2+ (NEG); Urine Specific Gravity 1.025 (1.005-1.030); Urine Urobilinogen 0.2 mg/dL (0.2-1.0); Urine pH 5.5 (5.0-7.0)
[2019-06-05 02:26] LABS: Urine Bilirubin NEGATIVE (NEG)
[2019-06-05 02:36] LABS: Urine Amorphous Sediment 2+ /HPF (NONE SEEN); Urine Bacteria >50 /HPF (NONE SEEN); Urine Coarse Granular Casts 0-5 /LPF (NONE SEEN); Urine Culture Reflex Order NOT NEEDED; Urine Mucus 2+ /HPF (NONE SEEN); Urine RBC <5 /HPF (NONE SEEN)
[2019-06-05] MEDS: PANTOPRAZOLE 40MG TABLET PO SCH (06:44)
[2019-06-05 06:45] LABS: Absolute Lymphocytes (CBC) 0.9 K/uL (0.7-4.9); Basophils % 0.5 % (0-1.3); Hematocrit 28.4 % (39.6-49.0); Lymphocytes % 7.4 % (15.3-44.8); MPV 8.9 fL (7.6-11.3)
[2019-06-05] MEDS: INSULIN -REGULAR HUMAN 50 UNIT/0.5 ML ML SQ SCH ×4 (07:27→20:04)
[2019-06-05] MEDS ORDERED: VANCOMYCIN/NS 1 gm 1 GM/250 ML BAG IV SCH (07:30)
[2019-06-05] MEDS: HYDROCODONE/APAP 7.5/325 MG TAB PO PRN ×2 (07:33→19:33)
[2019-06-05 07:38] LABS: Albumin 2.8 g/dL (3.4-5.0); Magnesium 2.3 mg/dL (1.8-2.4); Prealbumin 11.8 mg/dL (20-40)
[2019-06-05] MEDS: GABAPENTIN 300 MG CAP PO SCH ×2 (07:48→19:32)
[2019-06-05] MEDS: METOCLOPRAMIDE 5 MG TAB PO SCH (07:48)
[2019-06-05] MEDS: SEVELAMER CARBONATE 800 MG TABLET PO SCH ×3 (07:48→17:00)
[2019-06-05] MEDS: carvediloL 12.5 MG TAB PO SCH ×2 (07:48→19:32)
[2019-06-05] MEDS: HYDRALAZINE HCL 25 MG TABLET PO SCH ×3 (07:49→20:19)
[2019-06-05] MEDS: PROMOD 30 ML DOSE PO SCH ×2 (08:43→19:34)
--- NOTE | 2019-06-05 09:39 | P.RH.PN ---
Estimated Length of Stay: 14 Expected Discharge Date: 06/17/19 Discharge Disposition Plan: Home Family Support: Yes Residential Goal: Mobility, Transfers, Self Care Vital Signs: Last Vital Signs Temp 97.1 F 06/05/19 06:59 Pulse 65 06/05/19 07:48 Resp 15 06/05/19 08:21 BP 162/74 H 06/05/19 07:48 Pulse Ox 97 06/05/19 08:21 Laboratory: Laboratory Last Values Sodium 140 mmol/L (136-145) 06/05/19 06:22 Potassium 4.0 mmol/L (3.5-5.1) 06/05/19 06:22 Chloride 105 mmol/L (98-107) 06/05/19 06:22 Carbon Dioxide 30 mmol/L (21-32) 06/05/19 06:22 BUN 36 mg/dL (7-18) H 06/05/19 06:22 Creatinine 4.02 mg/dL (0.55-1.3) H 06/05/19 06:22 Estimated GFR 18 mL/min (=/>90) L 06/05/19 06:22 Glucose 88 mg/dL (74-106) 06/05/19 06:22 POC Glucose 72 mg/dl (65-120) 06/05/19 07:40 Calcium 8.0 mg/dL (8.5-10.1) L 06/05/19 06:22 Magnesium 2.3 mg/dL (1.8-2.4) 06/05/19 06:22 Albumin 2.8 g/dL (3.4-5.0) L 06/05/19 06:22 Prealbumin 11.8 mg/dL (20-40) L 06/05/19 06:22 Urine Color Yellow 06/05/19 01:45 Urine Appearance Cloudy 06/05/19 01:45 Urine pH 5.5 (5.0-7.0) 06/05/19 01:45 Ur Specific [place] 1.025 (1.005-1.030) 06/05/19 01:45 Urine Ketones Negative (NEG) 06/05/19 01:45 Urine Blood Negative (NEG) 06/05/19 01:45 Urine Nitrite Negative (NEG) 06/05/19 01:45 Urine Bilirubin Negative (NEG) 06/05/19 01:45 Urine Urobilinogen 0.2 mg/dL (0.2-1.0) 06/05/19 01:45 Ur Leukocyte Esterase Negative (NEG) 06/05/19 01:45 Urine RBC <5 /HPF (NONE SEEN) 06/05/19 01:45 Urine WBC 10-20 /HPF (<5) H 06/05/19 01:45 Ur Squamous Epith Cells 10-20 /HPF (NONE SEEN) H 06/05/19 01:45 Amorphous Sediment 2+ /HPF (NONE SEEN) H 06/05/19 01:45 Urine Bacteria >50 /HPF (NONE SEEN) H 06/05/19 01:45 Coarse Granular Casts 0-5 /LPF (NONE SEEN) 06/05/19 01:45 Urine Mucus 2+ /HPF (NONE SEEN) 06/05/19 01:45 Urine Culture Reflexed Not needed 06/05/19 01:45 Urine Glucose Negative (NEG) 06/05/19 01:45 Urine Total Protein 2+ (NEG) H 06/05/19 01:45 Weight: 160 lb 1.6 oz Wound Present: Yes Closed Surgical Incision Present: Yes Physician Update: Labs were reviewed. His creatinine is stable after dialysis. His is somewhat difficulty with the staff, but he follows instructions. He can maintain partial weight bearing status. He walked 30'. Summary: Patient's care plan and jail goals have been reviewed and revised as necessary. Please see the Rehabilitation Signature page for all necessary signatures.
--- NOTE | 2019-06-05 11:29 | P.PN ---
Subjective Date of Service: 06/05/19 Subjective: Ambulating, Improving, Working w/ PT pain improving Physical Examination - Vital Signs Temperature: 97.1 F Blood Pressure: 162/74 Pulse: 65 Respirations: 15 Pulse Ox (%): 97 - Physical Exam General: Alert, In no apparent distress Musculoskeletal: Other (RLE: incision clean/dry/intact; old sangiunous drainage within bandage that was changed; no active drainage or erythema; NVI distally) - Studies Laboratory Data (last 24 hrs) 06/05/19 06:22: Sodium 140, Potassium 4.0, BUN 36 H, Creatinine 4.02 H, Glucose 88, Magnesium 2.3 Assessment And Plan - Plan Billy is a 63 yo male s/p right knee partial patellectomy with patellar tendon repair POD#4 -dressing changed without complication -continue PT; PWB RLE in knee immobilizer
[2019-06-05] MEDS ORDERED: GLUCAGON 1 MG/VIAL IM PRN (11:31)
[2019-06-05] MEDS ORDERED: D50W 25 GM/50 ML SYRINGE/VIAL IV PRN (11:31)
[2019-06-05 11:44] LABS: Anisocytosis 1+; Blood Morphology Comment NOTED (NOT SEEN); Platelet Estimate ADEQ
[2019-06-05] MEDS: TRAMADOL HCL 50 MG TAB PO PRN ×2 (12:20→22:16)
--- NOTE | 2019-06-05 13:09 | R.HP ---
FACILITY: [facility] ENCOUNTER DATE AND TIME: 06/05/2019 13:03 (PUTTER IN) MR#: [id number] NAME ODILIA PATEL ADDRESS: [address] [place] [address] CITY: [place] ZIP [id number] PHONE: DATE OF : 1955 AGE: 63 SSN# [id number] GENDER: Male DEXTERITY Right-handed MARITAL STATUS Single (Never ) RACE Black PRE-HOSPITAL LIVING SETTING 01 - Home (private home/apt. board/care, assisted living, usp, transitional living) PRE-HOSPITAL LIVING WITH Alone ENCOUNTER PHYSICIAN: Dr. Darrell Grimm M.D. REFERRING DOCTOR: ferdinand Espana DATE OF ADMISSION: 06/04/2019 18:59 (PUTTER IN) REFERRING FACILITY [facility] HOME TYPE AND DETAILS: Type of home: apartment # of levels in the residence: 1 # of steps to enter the residence: 10 # of steps within the residence: 0 ADMISSION DIAGNOSIS: ESRD Right Patella Fracture ONSET DATE: 05/27/2019 PRIMARY DIAGNOSIS-RELATED SURGERIES: No surgeries related to the primary diagnosis were performed. SECONDARY/COMORBID DIAGNOSES (TIERED): - Tier 1 Dependence on renal dialysis (Z99.2) - Non-Tiered Type 2 diabetes mellitus with diabetic neuropathy, unspecified (E11.40) - N/A ESRD HTN Hyperlipidemia History of CVA Anemia Drug Abuse CHF CAD HISTORY OF PRESENT ILLNESS (HPI): Pt. is a 63 yo Right-handed black male. On 05/27/2019 he was admitted to [facility] with diagnosis ESRD. His impairment category is Medically Complex Conditions 17 - Terminal Care (17.6). Pre-morbidly, Pt. was independent/mod-I in Locomotion, Safety Awareness, Balance, Social Cognition, T ransfers Control, Sphincter Control, Self-Care, Communication, and Endurance; and he had good Locomot ion, Balance, Safety Awareness, Social Cognition, Transfers Control, Sphincter Control, Self-Care, Co mmunication, and Endurance. Currently, he has deficits of Locomotion, Balance, Safety Awareness, Social Cognition, Transfers Cont rol, Self-Care, and Endurance. Pt. is now referred to [facility] for acute in-patient rehabilitation in order to maximize patient's functional independence in activities of daily living, strength, ROM, and mobi lity. Patient has realistic goal of being discharged at assistance level 6-Luz Elena to reside at Home with Fam juvenal/Relatives. Odilia Patel is a 63 year old male that lives alone in a 2nd floor apartment. On 05/27/2019, he fell 5 days ago and hit his right knee and chest and developed right knee pain associated with swelling and tenderness. He was having difficulty to ambulate and some chest tenderness but he did not lose consciousness after he fell. He missed 1-1/2 weeks of hemodialysis and do not feel good and called 911 and was admitted to [facility] and treated. He is now medically stable but in need of 24-hour nursing, doctor supervision and oversite while receiving acti ve and ongoing intensive (PT, reasonably expected to participate in 3hours of therapy a day/15 hours per week and receive care with an intensive interdisciplinary approach. MEDICATION ALLERGIES: Corticosteroids ENVIRONMENTAL ALLERGIES: None Known - Substance Allergies None Known - Other Allergies None Known PAST MEDICAL HISTORY: Anemia CAD CHF Dependence on renal dialysis (Z99.2) Drug Abuse ESRD HTN History of CVA Hyperlipidemia Type 2 diabetes mellitus with diabetic neuropathy, unspecified (E11.40) PAST SURGICAL HISTORY: Colonoscopy Endoscopy Dialysis catheter placement FAMILY HISTORY: Family history is not contributory. SOCIAL HISTORY: - Home Living Alone REVIEW OF SYSTEMS: - Gen No Chills No Fatigue No Fever - Eyes No Double Vision No itchiness - ENMT No Difficulty Swallowing - CVS No Chest Discomfort No Chest Pain Fatigue No Weight Gain - Resp No Cough No Shortness of Breath - GI Continent No Abdominal Pain No Constipation No Diarrhea - Continent No Kidney Pain No Painful Urination No Urinary Urgency - MSK No Joint Pain Muscle Cramps Stiffness - Skin No Itching No Rash No Suspicious Lesions - Neuro Coordination Difficulty No Difficulty with Concentration No Memory Loss No Seizures Weakness - Psych No Anxiety No Depression No HIV Exposure No Persistent Infections No Seasonal Allergies - Endo No Cold/Heat Intolerance No Excessive Hunger No Excessive Thirst No Excessive Urination PHYSICAL EXAM - Gen Alert and awake Lying in bed No apparent distress Oriented to: person, time, and place - Skin No skin breakdown. Normacephalic - Eyes No abnormalities - ENMT No abnormalities - Neck No abnormalities - CVS RRR - Chest Clear - Abd + bowel sounds - GI Non distended Deferred - No abnormalities - Ext His right leg is in a brace with hemostasis at his surgical site. - MSK 4+/5 weakness in right lower extremity - Neuro 4/5 strength right lower extremity. - Psych No abnormalities VITAL SIGNS Temperature: 97.1 F SBP/DBP: 133/64 Pulse: 69 Resp: 14 NURSING: - Shower allowing shower - Lab Results blood Sugar Check ACHS ACTIVITIES OOB only with supervision QI SCORES: - Self-Care A. Eating 05-Setup or clean-up assistance B. Oral hygiene 05-Setup or clean-up assistance C. Toileting hygiene 04-Supervision or touching assistance E. Shower/bathe self 04-Supervision or touching assistance F. Upper body dressing 04-Supervision or touching assistance G. Lower body dressing 03-Partial/moderate assistance H. Putting on/taking off footwear 03-Partial/moderate assistance - Mobility A. Roll left and right 04-Supervision or touching assistance B. Sit to lying 04-Supervision or touching assistance C. Lying to sitting on side of bed 04-Supervision or touching assistance D. Sit to stand 04-Supervision or touching assistance E. Chair/[id number] transfer 03-Partial/moderate assistance F. Toilet transfer 03-Partial/moderate assistance G. Car transfer 10-Not attempted due to environmental limitations I. Walk 10 feet 03-Partial/moderate assistance J. Walk 50 feet with two turns 88-Not attempted due to medical condition or safety concerns K. Walk 150 feet 88-Not attempted due to medical condition or safety concerns L. Walking 10 feet on uneven surfaces 88-Not attempted due to medical condition or safety concerns M. 1 step (curb) 88-Not attempted due to medical condition or safety concerns N. 4 steps 88-Not attempted due to medical condition or safety concerns O. 12 steps 88-Not attempted due to medical condition or safety concerns P. Picking up object 88-Not attempted due to medical condition or safety concerns R. Wheel 50 feet with two turns 88-Not attempted due to medical condition or safety concerns S. Wheel 150 feet 88-Not attempted due to medical condition or safety concerns - Bladder and Bowel Bladder continence 5-No urine output Bowel continence 0-Always continent - Endurance Fair - Balance Fair - Safety Awareness Fair CURRENT FUNC. DEFICITS: Self-Care, Mobility, Endurance, Balance, and Safety Awareness MEDICATIONS: - Other See attached MAR (Medication Administration Record) See attached MAR (Medication Administration Record) Odilia Patel.pdf ASSESSMENT: Pt. is a 63 yo Right-handed black male.On 05/27/2019 he was admitted to [facility] with diagnosis ESRD.His impairment category is Medically Complex Conditions 17 - Terminal Care ( 17.6).Pre-morbidly, Pt. was independent/mod-I in Locomotion, Safety Awareness, Balance, Social Cognit ion, Transfers Control, Sphincter Control, Self-Care, Communication, and Endurance; and he had good L ocomotion, Balance, Safety Awareness, Social Cognition, Transfers Control, Sphincter Control, Self-Ca re, Communication, and Endurance.Currently, he has deficits of Locomotion, Balance, Safety Awareness, Social Cognition, Transfers Control, Self-Care, and Endurance.Pt. is now referred to [facility] for acute in-patient rehabilitation in order to maximize patient's functional inde pendence in activities of daily living, strength, ROM, and mobility.- Rehab Goal Patient has realistic goal of being discharged at assistance level 6-Luz Elena to reside at Home with Fam juvenal/Relatives. Odilia Patel is a 63 year old male that lives alone in a 2nd floor apartment. On 05/27/2019, he fell 5 days ago and hit his right knee and chest and developed right knee pain associated with swelling and tenderness. He was having difficulty to ambulate and some chest tenderness but he did not lose consciousness after he fell. He missed 1-1/2 weeks of hemodialysis and do not feel good and called 911 and was admitted to [facility] and treated. He is now medically stable but in need of 24-hour nursing, doctor supervision and oversite while receiving acti ve and ongoing intensive (PT, reasonably expected to participate in 3hours of therapy a day/15 hours per week and receive care with an intensive interdisciplinary approach.REHAB PLAN: - Physical Therapy Gait dysfunction - to improve, our physical therapists will perform initial evaluation of pt's status upon admission and devise an individualized program for Gait Training, and Wheel Chair mobility Inability to transfer - to improve, our physical therapists will perform initial evaluation of pt's s tatus upon admission and devise an individualized program for Bed mobility Need for home safety evaluation - to improve, our physical therapists will perform initial evaluation of pt's status upon admission and devise an individualized program for Home Evaluation Need in caregiver upon discharge - to improve, our physical therapists will perform initial evaluatio n of pt's status upon admission and devise an individualized program for Caregiver Training New precaution - to improve, our physical therapists will perform initial evaluation of pt's status u kayla admission and devise an individualized program for Patient precaution education Poor balance - to improve, our physical therapists will perform initial evaluation of pt's status upo n admission and devise an individualized program for Balance Training Poor endurance - to improve, our physical therapists will perform initial evaluation of pt's status u kayla admission and devise an individualized program for Endurance Training Weakness - to improve, our physical therapists will perform initial evaluation of pt's status upon ad mission and devise an individualized program for Aquatic Therapy, Neuromuscular Reeducation, and Stre ngthening Achieving independence - to improve, our physical therapists will perform initial evaluation of pt's status upon admission and devise an individualized program for Community Reintegration Activities - Occupational Therapy ADL deficits - to improve, our occupation therapists will perform initial evaluation of pt's status u kayla admission and devise an individualized program for Bathing, Bed mobility, Community Reintegration , Cooking, Dressing, Eating, Fine Motor Skills, Grooming, Homemaking, Kitchen Mobility, Laundry, Misty ent Education, Safety Awareness, Splinting - Positioning, Transfers(Toilet, Tub, Shower), and Wheel C hair Management Cognitive deficits - to improve, our occupation therapists will perform initial evaluation of pt's st atus upon admission and devise an individualized program for Cognition - orientation Need for client care specialist - to improve, our occupation therapists will perform initial evaluation of pt's s tatus upon admission and devise an individualized program for Caregiver Training Weakness - to improve, our occupation therapists will perform initial evaluation of pt's status upon admission and devise an individualized program for Aquatic Therapy, Balance, Endurance, UE ROM, and U E strengthening MEDICAL PLAN: - Diet Type Start Regular - Diet - Liquid Texture Start Regular - Tube Feed Start N/A - Lab Results blood Sugar Check ACHS - Other See attached MAR (Medication Administration Record) See attached MAR (Medication Administration Record) Odilia Patel.pdf - Diet - Solid Texture Regular - Shower shower DISCHARGE PLAN: - Estimated Length of Stay (days) 13. - Consensus on plan Discharge plan has been discussed with primary caregiver. Patient/Family is in agreement with the aron n. Primary caregiver is in agreement with the plan. - Patient/Family Goals Return home with assistance. - Planned Living Setting Upon Discharge Home, to live with Family/Relatives. Transitional Living. SIGNATURE PANEL: (PUTTER IN)
--- NOTE | 2019-06-05 13:11 | PAPE ---
PATIENT: [facility] MR# [id number] REFERRING DOCTOR ferdinand Espana EVALUATION DATE AND TIME 06/05/2019 13:09 (AIR ANALYST) NAME ODILIA PATEL DATE OF 1955 AGE 63 PHONE N# [id number] GENDER male EVALUATING PHYSICIAN Dr. Darrell Grimm M.D. ADMISSION DIAGNOSIS: ESRD Right Patella Fracture ONSET DATE 05/27/2019 SECONDARY/COMORBID DIAGNOSES TIERED: - Tier 1 Dependence on renal dialysis (Z99.2) - Non-Tiered Type 2 diabetes mellitus with diabetic neuropathy, unspecified (E11.40) - N/A ESRD HTN Hyperlipidemia History of CVA Anemia Drug Abuse CHF CAD POST-ADMISSION FUNCTIONAL/MEDICAL STATUS: - Bladder Same accident frequency: Ind - No accidents in the past 7 days - Bowel Same accident frequency: Ind - No accidents in the past 7 days - Walking Same score based on distance walked: 0(N/A) Same score based on distance walked: 1(<=50ft) - Wheelchair Same score based on distance traveled: 0(N/A) STATUS CHANGE EVALUATION: No change in Functional or Medical Status is identified compared with Pre-Admission screening. PATIENT NEEDS CLOSE MEDICAL SUPERVISION BY A REHABILITATION PHYSICIAN FOR: Coordination of Treatment Team Diabetes Management Medical and Co-Morbidity Management PATIENT REQUIRES 24X7 REHAB NURSING FOR MEDICAL AND FUNCTIONAL MGT. OF THE FOLLOWING DEFICITS: Disease Management Medication Management Patient/Family Education Providing Safe Environment PATIENT REQUIRES INTENSIVE, COORDINATED INTERDISCIPLINARY APPROACH TO REHAB: Arranging Home Equipment/Services Discharge Planning Family Intervention/Training [employer] Safety Engineer/Case Management LIST OF IDENTIFIED AND POTENTIAL PROBLEMS: Alteration in leisure activities Bladder, Incontinence Bowel, Incontinence Diabetes, Hyperglycemia/hypoglycemia Issues Fluid volume overload related to Congestive Heart Failure (CHF) Infection, Actual or Potential Mobility Impaired Pain, Alteration in Comfort Self Care Deficit Skin Integrity, Actual or Potential Urinary Tract Infection (UTI), Actual or Potential RISK FOR COMPLICATIONS - CAD CHF. Cardiac Arrest. VT. Pain. INTERVENTIONS - CAD 02 sats. Activity management. Medications. VS. PATIENT COULD BE AT RISK FOR COMPLICATIONS FROM ADVERSE MEDICAL CONDITIONS DUE TO HIS/HER COMORBIDITI ES AND THE RIGORS OF THE INTENSIVE REHABILLITATION PROGRAM. METHODS OR INTERVENTIONS TO AVOID COMPLIC ATIONS INCLUDE: - Infection Clinical staff to assess and manage the signs and symptoms of infection including fever, redness, war mth, etc. - Urinary Tract Infection - Falls Patient will be evaluated for Fall Precautions and will be placed on Fall Precautions as indicated pe r protocol. - Skin Breakdown Nursing will assess skin daily using assessment tool and will place on Skin Breakdown Precautions as indicated per protocol. - Pain Clinical staff may employ non-medication methods such as massage, distraction, decrease stimulus, etc . as needed. Clinical staff will assess patient's pain level every shift per protocol to assess and e nsure pain management effectiveness. Medications will be given and the pain level re-assessed. PRELIMINARY PLAN OF CARE: - Physical Therapy Patient needs Physical Therapy for a daily minimum of 1.5 hours at least 5 out of 7 days, to improve: Mobility, Strengthening, Transfers, Stretching, ROM, Endurance, Ability to manage stairs, Gait, and Balance. - Speech Therapy Patient needs Speech Therapy for a daily minimum of 0.5 hours at least 5 out of 7 days, to improve: S wallowing, Cognition, Language Skills, and Compensatory Strategies. - Rehabilitation Nursing Patient requires 24x7 Rehabilitation Nursing for: Pain Issues, Identifying and preventing risk factor s, Monitoring and reporting current medical conditions, Assisting with ambulation and transfer, Contreras ting with all ADL-s, Teaching patients about disease process and medications, Family teaching, Provid ing safe environment, Bowel and Bladder Issues, Skin Integrity, and Medication Management. Patient needs [employer] Safety Engineer and/or Case Management for: Discharge Planning, Arranging Home Equipmen t or Services, and Family Interventions. - Dietary and Nutrition Services Patient needs Dietary and Nutrition Services for: Adequate Nutrition, Nutritional Supplements, and Nu tritional Education. - Occupational Therapy Patient needs Occupational Therapy for a daily minimum of 1.5 hours at least 5 out of 7 days, to impr ove Activities of Daily Living, including: Eating, Grooming, Bathing, Dressing, Toileting, Toilet Tra nsfers, Community Reintegration, Higher functional activities, Adaptive Equipment, Splinting, Househo ld Tasks, and Other activities as determined. QI SCORES: - Self-Care A. Eating 05-Setup or clean-up assistance B. Oral hygiene 05-Setup or clean-up assistance C. Toileting hygiene 04-Supervision or touching assistance E. Shower/bathe self 04-Supervision or touching assistance F. Upper body dressing 04-Supervision or touching assistance G. Lower body dressing 03-Partial/moderate assistance H. Putting on/taking off footwear 03-Partial/moderate assistance - Mobility A. Roll left and right 04-Supervision or touching assistance B. Sit to lying 04-Supervision or touching assistance C. Lying to sitting on side of bed 04-Supervision or touching assistance D. Sit to stand 04-Supervision or touching assistance E. Chair/[id number]-[id number] transfer 03-Partial/moderate assistance F. Toilet transfer 03-Partial/moderate assistance G. Car transfer 10-Not attempted due to environmental limitations I. Walk 10 feet 03-Partial/moderate assistance J. Walk 50 feet with two turns 88-Not attempted due to medical condition or safety concerns K. Walk 150 feet 88-Not attempted due to medical condition or safety concerns L. Walking 10 feet on uneven surfaces 88-Not attempted due to medical condition or safety concerns M. 1 step (curb) 88-Not attempted due to medical condition or safety concerns N. 4 steps 88-Not attempted due to medical condition or safety concerns O. 12 steps 88-Not attempted due to medical condition or safety concerns P. Picking up object 88-Not attempted due to medical condition or safety concerns R. Wheel 50 feet with two turns 88-Not attempted due to medical condition or safety concerns S. Wheel 150 feet 88-Not attempted due to medical condition or safety concerns - Bladder and Bowel Bladder continence 5-No urine output Bowel continence 0-Always continent - Endurance Fair - Balance Fair - Safety Awareness Fair POTENTIAL FUNCTIONAL GOALS FOR PATIENT TO ACHIEVE BY DISCHARGE: - Safety Precaution Patient will remain free from falls or injury at time of discharge. - Bed Mobility Patient will perform bed mobility at 4-Gayle level of assistance. - Transfers Patient will complete transfers from bed to chair at 4-Gayle level of assistance. - Mobility Patient will ambulate 150 ft with 4-Gayle level of assistance with RW. PATIENT REHAB POTENTIAL Nalini PATEL is able and expected to receive 3 hours of individualized therapy daily on at least 5 of kieran 7 days Nalini PATEL's prognosis for significant practical improvement within a reasonable period of time appear s Good Expected level of measurable improvement will be of a practical value to Nalini PATEL's functional capac ity or adaptations to impairments Has a viable Discharge Plan Medically appropriate; condition is sufficiently stable to participate in intensive rehab program DISCHARGE PLAN: - Estimated Length of Stay (days) 13. - Consensus on plan Discharge plan has been discussed with primary caregiver. Patient/Family is in agreement with the aron n. Primary caregiver is in agreement with the plan. - Patient/Family Goals Return home with assistance. - Planned Living Setting Upon Discharge Home, to live with Family/Relatives. Transitional Living. CONCLUSION ON REHABILITATION NECESSITY: I have evaluated patient's pre-admission functional status and, comparing it to the patient's post-ad mission functional status now, I conclude that the pre-admission assessment was accurate. Patient's c ondition on admission supports the medical necessity of admission to [facility]. It is safe to proceed with patient's therapy program. SIGNATURE PANEL: (AIR ANALYST)
[2019-06-05] MEDS: ENOXAPARIN 30 MG/0.3 ML SQ SCH (17:00)
[2019-06-05] MEDS: DOCUSATE NA/SENNA CONC 1 TAB PO PRN (19:35)
[2019-06-05] MEDS: INSULIN GLARGINE 100 UNITS/ML SQ SCH (20:06)
[2019-06-06] MEDS: CYCLOBENZAPRINE 10 MG TAB PO PRN ×2 (01:14→19:41)
[2019-06-06] MEDS: ALPRAZOLAM 0.25 MG TABLET PO PRN ×2 (01:15→19:41)
--- NOTE | 2019-06-06 02:23 | FAST ---
SHIFT START DATE/TIME: 06/05/2019 19:00 (HAIR STYLIST) SHIFT END DATE/TIME: 06/06/2019 07:00 (HAIR STYLIST) NAME ODILIA PATEL DATE OF : 1955 DATE OF ADMISSION: 06/04/2019 18:59 (HAIR STYLIST) PHONE: AGE: 63 N# [id number] GENDER: Male ENCOUNTER PHYSICIAN: Dr. Darrell Grimm M.D. ADMISSION DIAGNOSIS: - Medically Complex Conditions 17 - Terminal Care (17.6) ESRD. Right Patella Fracture. EATING: Not assessed/no information CODE: - ORAL HYGIENE: Not assessed/no information CODE: - TOILETING HYGIENE: TOILETING HYGIENE - STEP 1: Does the patient complete the activity by him/herself with no assistance (physical, verbal/nonverbal cueing, setup/clean-up)? No. TOILETING HYGIENE - STEP 2: Does the patient need only setup/clean-up assistance from one helper? No. TOILETING HYGIENE - STEP 3: Does the patient need only verbal/nonverbal cueing or touching/steadying/contact guard assistance fro m one helper? No. TOILETING HYGIENE - STEP 4: Does the patient need physical assistance - for example lifting or trunk support from one helper - wi th the helper providing less than half of the effort? Yes. 1. [id number] ADMISSION PERFORMANCE: Partial/moderate assistance CODE: 03 BATHING: Not assessed/no information CODE: - DRESSING - UPPER BODY: Not assessed/no information CODE: - DRESSING - LOWER BODY: Not assessed/no information CODE: - PUTTING ON/TAKING OFF FOOTWEAR: Not assessed/no information CODE: - ROLL LEFT AND RIGHT: Not assessed/no information CODE: - SIT TO LYING: Not assessed/no information CODE: - LYING TO SITTING: Not assessed/no information CODE: - SIT TO STAND: Not assessed/no information CODE: - TRANSFERS: BED, CHAIR: Not assessed/no information CODE: - TRANSFER TOILET: Not assessed/no information CODE: - TRANSFERS: CAR: Not assessed/no information CODE: - WALK 10 FEET: Not assessed/no information CODE: - 1 STEP (CURB): Not assessed/no information CODE: - PICKING UP OBJECT: Not assessed/no information CODE: - DOES THE PATIENT USE A WHEELCHAIR/SCOOTER? CODE: EXPR WHEEL 50 FEET WITH TWO TURNS: Not assessed/no information CODE: - INDICATE THE TYPE OF WHEELCHAIR/SCOOTER USED: CODE: EXPR WHEEL 150 FEET: Not assessed/no information CODE: - INDICATE THE TYPE OF WHEELCHAIR/SCOOTER USED: CODE: EXPR BLADDER AND BOWEL: H350. BLADDER CONTINENCE (3-DAY ASSESSMENT PERIOD): Always continent (no documented incontinence) CODE: 0 H400. BOWEL CONTINENCE (3-DAY ASSESSMENT PERIOD): Always continent CODE: 0
[2019-06-06] MEDS: HYDROCODONE/APAP 7.5/325 MG TAB PO PRN ×3 (02:59→19:42)
[2019-06-06] MEDS: PANTOPRAZOLE 40MG TABLET PO SCH (06:24)
[2019-06-06] MEDS: INSULIN -REGULAR HUMAN 50 UNIT/0.5 ML ML SQ SCH ×4 (07:16→20:22)
[2019-06-06] MEDS: HYDRALAZINE HCL 25 MG TABLET PO SCH ×3 (07:36→19:42)
[2019-06-06] MEDS: carvediloL 12.5 MG TAB PO SCH ×2 (07:36→19:41)
[2019-06-06] MEDS: TRAMADOL HCL 50 MG TAB PO PRN ×2 (08:09→15:54)
[2019-06-06] MEDS: METOCLOPRAMIDE 5 MG TAB PO SCH (08:11)
[2019-06-06] MEDS: GABAPENTIN 300 MG CAP PO SCH ×2 (08:11→19:42)
[2019-06-06] MEDS: SEVELAMER CARBONATE 800 MG TABLET PO SCH ×3 (08:11→17:00)
[2019-06-06] MEDS: PROMOD 30 ML DOSE PO SCH ×2 (08:12→19:43)
[2019-06-06] MEDS: ENOXAPARIN 30 MG/0.3 ML SQ SCH (15:54)
[2019-06-06 16:19] LABS: Gentamicin Level, Trough 1.3 ug/mL (0-2.0)
[2019-06-06] MEDS: DOCUSATE NA/SENNA CONC 1 TAB PO PRN (19:42)
[2019-06-06] MEDS: GENTAMICIN 80 MG/100 ML BAG 80 MG/100 ML BAG IV SCH (19:43)
--- NOTE | 2019-06-06 19:43 | CON ---
Date of Consultation: 06/06/2019 Chief Complaint: Severe deconditioning, end-stage renal disease. History Of Present Illness: Patient is admitted to the hospital for rehab. He has multiple medical problems including history of diabetes mellitus, diabetic neuropathy, end-stage renal disease due to diabetic kidney disease, hypertension , hyperlipidemia, history of stroke, drug abuse, congestive heart failure, and coronary artery disease. Patient was admitted primarily to [facility] with diagnosis of end-stage renal disease and severe deconditioning, fluid overload. Patient is undergoing dialysis 3 times per week on Saturday, , and Saturday. Today he denies new complaints. Review of Systems: Constitutional: Denies fevers, chills. Eyes: Denies new vision changes. Ears, Nose, Mouth and Throat: Denies sore throat, earache. Respiratory: Denies PND, orthopnea. Cardiovascular: Denies chest pain or palpitation. GI: Denies nausea or vomiting. : Denies dysuria or hematuria. Past Medical History: As stated above. Social History: Denies tobacco, alcohol, or illicit drugs. Family History: No kidney disease in the family. Physical Examination: General: Patient is awake, alert, follows commands. Eyes: Anicteric sclerae. EOMI. Ears, Nose, Mouth, and Throat: Oral mucosa moist. No pallor. Neck: Supple. No bruits. Lungs: Diminished breath sounds at the bases. Heart: S1, S2. No pericardial friction rub. Abdomen: Soft, benign, nontender. Extremities: Slight edema. Impression And Plan: 1. End-stage renal disease. Dialysis will be done today. Continue to monitor electrolytes. Adjust dialysis treatment accordingly. 2. Leukocytosis. Workup per primary team. Monitor chest x-ray to rule out an evidence of pneumonia. 3. Hypertension. Continue blood pressure medication. 4. Renal osteodystrophy. Continue renal diet and binders. 5. Anemia and chronic kidney disease. Patient will continue SCARLETT and dose will be adjusted if hemoglobin is below 10. EB/MODL Voice ID: [id number] Report ID: [id number] KATIE
[2019-06-06] MEDS: INSULIN GLARGINE 100 UNITS/ML SQ SCH (20:21)
[2019-06-07] MEDS: PANTOPRAZOLE 40MG TABLET PO SCH (06:21)
[2019-06-07] MEDS: INSULIN -REGULAR HUMAN 50 UNIT/0.5 ML ML SQ SCH ×4 (07:30→19:18)
[2019-06-07] MEDS: PROMOD 30 ML DOSE PO SCH ×2 (08:00→19:17)
[2019-06-07] MEDS: HYDROCODONE/APAP 7.5/325 MG TAB PO PRN ×2 (08:30→17:00)
[2019-06-07] MEDS: METOCLOPRAMIDE 5 MG TAB PO SCH (08:32)
[2019-06-07] MEDS: SEVELAMER CARBONATE 800 MG TABLET PO SCH ×3 (08:32→16:50)
[2019-06-07] MEDS: HYDRALAZINE HCL 25 MG TABLET PO SCH ×3 (08:32→19:18)
[2019-06-07] MEDS: carvediloL 12.5 MG TAB PO SCH ×2 (08:33→19:17)
[2019-06-07] MEDS: GABAPENTIN 300 MG CAP PO SCH ×2 (08:33→19:16)
[2019-06-07] MEDS: POLYETHYL GLY 3350 17 GM/DOSE PO PRN (12:09)
[2019-06-07] MEDS: TRAMADOL HCL 50 MG TAB PO PRN ×2 (12:18→19:15)
[2019-06-07] MEDS: ENOXAPARIN 30 MG/0.3 ML SQ SCH (16:50)
[2019-06-07] MEDS ORDERED: MAGNESIUM CITRATE 300 ML BOT PO ONE (18:00)
[2019-06-07] MEDS: DOCUSATE NA/SENNA CONC 1 TAB PO PRN (19:16)
[2019-06-07] MEDS: CYCLOBENZAPRINE 10 MG TAB PO PRN (19:16)
[2019-06-07] MEDS: INSULIN GLARGINE 100 UNITS/ML SQ SCH (19:17)
[2019-06-07] MEDS: ALPRAZOLAM 0.25 MG TABLET PO PRN (19:17)
--- NOTE | 2019-06-08 00:29 | PN ---
Date of Progress Note: 06/07/2019 Chief Complaint: End-stage renal disease, on dialysis. Subjective: Patient is undergoing rehab and he has deconditioning. He is improving with fluid jyothi ce. Leg edema has decreased. Patient is undergoing dialysis 3 times per week. He received dialysis yesterday for metabolic clearance and to obtain negative fluid balance. Review of Systems: Patient denies PND, orthopnea. Physical Examination: Lungs: Clear to auscultation bilaterally. Heart: S1, S2. Abdomen: Soft, benign. Extremities: Slight ankle edema. Laboratory Data: Hemoglobin 9.22, WBC 12.2, platelet count is 139,000. Chemistry showed sodium 140, potassium 4.0, chloride 105, CO2 of 30, BUN 36, creatinine 4.02, glucose is 195, calcium is 8.0, mag nesium 2.3. Impression And Plan: 1.End-stage renal disease. Dialysis will be done on Saturday. 2.Continue p.o. fluid restriction, low-sodium diet, renal diet to prevent hyperkalemia. 3.Hypertension. Continue blood pressure medication. 4.Severe deconditioning per primary team and rehab team. EB/MODL Voice ID: [id number] Report ID: [id number]
[2019-06-08] MEDS: HYDROCODONE/APAP 7.5/325 MG TAB PO PRN ×3 (02:23→18:40)
[2019-06-08] MEDS: INSULIN -REGULAR HUMAN 50 UNIT/0.5 ML ML SQ SCH ×4 (07:30→20:54)
[2019-06-08] MEDS: PROMOD 30 ML DOSE PO SCH ×2 (08:00→19:49)
[2019-06-08] MEDS: PANTOPRAZOLE 40MG TABLET PO SCH (08:08)
[2019-06-08] MEDS: METOCLOPRAMIDE 5 MG TAB PO SCH (08:08)
[2019-06-08] MEDS: GABAPENTIN 300 MG CAP PO SCH ×2 (08:08→19:48)
[2019-06-08] MEDS: HYDRALAZINE HCL 25 MG TABLET PO SCH ×3 (08:08→20:53)
[2019-06-08] MEDS: SEVELAMER CARBONATE 800 MG TABLET PO SCH ×3 (08:08→17:12)
[2019-06-08] MEDS: carvediloL 12.5 MG TAB PO SCH ×2 (08:09→19:48)
[2019-06-08] MEDS: TRAMADOL HCL 50 MG TAB PO PRN ×2 (08:13→22:09)
[2019-06-08] MEDS: ENOXAPARIN 30 MG/0.3 ML SQ SCH (16:50)
--- NOTE | 2019-06-08 17:42 | R.PN ---
ENCOUNTER DATE AND TIME: 06/08/2019 17:33 (MACHINE VENEER REPAIRER) NAME BILLY PATEL DATE OF : 1955 DATE OF ADMISSION: 06/04/2019 18:59 (MACHINE VENEER REPAIRER) ESRDRight Patella FractureCHIEF COMPLAINT: End stage renal disease and debility. SUBJECTIVE: Pt denied any depression. Pt denied any Shortness of Breath. Glucose ranged 65 to 153. Ambulated 460' with standby assistance using a rolling walker. Up and down 10 steps with supervision. VITAL SIGNS Temperature: 97.2 F SBP/DBP: 165/78 Pulse: 67 Resp: 15 MEDICATION ALLERGIES: Corticosteroids ENVIRONMENTAL ALLERGIES: None Known - Substance Allergies None Known - Other Allergies None Known NURSING: - Shower allowing shower - Lab Results blood Sugar Check ACHS ACTIVITIES OOB only with supervision THERAPIES: - Dietary and Nutrition Adequate Nutrition. Nutritional Education. Nutritional Supplements. PHYSICAL EXAM - Gen Alert and awake Lying in bed No apparent distress Oriented to: person, time, and place - Skin No skin breakdown. Normacephalic - Eyes No abnormalities - ENMT No abnormalities - Neck No abnormalities - CVS RRR - Chest Clear - Abd + bowel sounds - GI Non distended Deferred - No abnormalities - Ext His right leg is in a brace with hemostasis at his surgical site. - MSK 4+/5 weakness in right lower extremity - Neuro 4/5 strength right lower extremity. - Psych No abnormalities ASSESSMENT: Pt. is a 63 yo Right-handed black male.On 05/27/2019 he was admitted to [facility] with diagnosis ESRD.His impairment category is Medically Complex Conditions 17 - Terminal Care ( 17.6).Pre-morbidly, Pt. was independent/mod-I in Locomotion, Safety Awareness, Balance, Social Cognit ion, Transfers Control, Sphincter Control, Self-Care, Communication, and Endurance; and he had good L ocomotion, Balance, Safety Awareness, Social Cognition, Transfers Control, Sphincter Control, Self-Ca re, Communication, and Endurance.Currently, he has deficits of Locomotion, Balance, Safety Awareness, Social Cognition, Transfers Control, Self-Care, and Endurance.Pt. is now referred to [facility] for acute in-patient rehabilitation in order to maximize patient's functional inde pendence in activities of daily living, strength, ROM, and mobility.- Rehab Goal Patient has realistic goal of being discharged at assistance level 6-Luz Elena to reside at Home with Fam juvenal/Relatives. MDM/PLAN: - Physical Therapy Gait dysfunction - to improve, our physical therapists will perform initial evaluation of pt's statu s upon admission and devise an individualized program for Gait Training, and Wheel Chair mobility Inability to transfer - to improve, our physical therapists will perform initial evaluation of pt's status upon admission and devise an individualized program for Bed mobility Need for home safety evaluation - to improve, our physical therapists will perform initial evaluatio n of pt's status upon admission and devise an individualized program for Home Evaluation Need in caregiver upon discharge - to improve, our physical therapists will perform initial evaluati on of pt's status upon admission and devise an individualized program for Caregiver Training New precaution - to improve, our physical therapists will perform initial evaluation of pt's status upon admission and devise an individualized program for Patient precaution education Poor balance - to improve, our physical therapists will perform initial evaluation of pt's status up on admission and devise an individualized program for Balance Training Poor endurance - to improve, our physical therapists will perform initial evaluation of pt's status upon admission and devise an individualized program for Endurance Training Weakness - to improve, our physical therapists will perform initial evaluation of pt's status upon a dmission and devise an individualized program for Aquatic Therapy, Neuromuscular Reeducation, and Str engthening Achieving independence - to improve, our physical therapists will perform initial evaluation of pt's status upon admission and devise an individualized program for Community Reintegration Activities - Occupational Therapy ADL deficits - to improve, our occupation therapists will perform initial evaluation of pt's status upon admission and devise an individualized program for Bathing, Bed mobility, Community Reintegratio n, Cooking, Dressing, Eating, Fine Motor Skills, Grooming, Homemaking, Kitchen Mobility, Laundry, Pat ient Education, Safety Awareness, Splinting - Positioning, Transfers(Toilet, Tub, Shower), and Wheel Chair Management Cognitive deficits - to improve, our occupation therapists will perform initial evaluation of pt's s tatus upon admission and devise an individualized program for Cognition - orientation Need for caretaker - to improve, our occupation therapists will perform initial evaluation of pt's status upon admission and devise an individualized program for Caregiver Training Weakness - to improve, our occupation therapists will perform initial evaluation of pt's status upon admission and devise an individualized program for Aquatic Therapy, Balance, Endurance, UE ROM, and UE strengthening - Other See attached MAR (Medication Administration Record) See attached MAR (Medication Administration Record) Billy Patel.pdf See attached MAR (Medication Administration Record) Billy Patel.pdf - Diet Type Continue Regular - Diet - Liquid Texture Continue Regular - Tube Feed Continue N/A - Lab Results blood Sugar Check ACHS - Diet - Solid Texture Continue Regular - Shower allowing shower FUNCTIONAL STATUS: UPDATED AT WEEKLY TEAM CONFERENCE - Bladder Same accident frequency: 7-Ind - No accidents in the past 7 days - Bowel Same accident frequency: 7-Ind - No accidents in the past 7 days - Walking Same score based on distance walked: 0(N/A) Same score based on distance walked: 1(<=50ft) - Wheelchair Same score based on distance traveled: 0(N/A) FUNCTIONAL STATUS: - Self-Care A. Eating Ind B. Grooming Ind C. Bathing Ind D. Dressing - Upper Ind E. Dressing - Lower Gayle F. Toileting sup - Sphincter Control G. Bladder control Luz Elena H. Bowel control Luz Elena - Transfers Control I. Bed/Chair/Wheelchair Gayle J. Toilet Gayle K. Tub/Shower Gayle - Locomotion L. Walk/Wheelchair (B) sup M. Stairs Ind - Communication N. Comprehension (B) Luz Elena O. Expression (B) Luz Elena - Social Cognition P. Social Interaction Luz Elena Q. Problem Solving sup R. Memory sup - Endurance Fair - Balance Fair - Safety Awareness Fair QI SCORES: - Self-Care A. Eating 05-Setup or clean-up assistance B. Oral hygiene 05-Setup or clean-up assistance C. Toileting hygiene 04-Supervision or touching assistance E. Shower/bathe self 04-Supervision or touching assistance F. Upper body dressing 04-Supervision or touching assistance G. Lower body dressing 03-Partial/moderate assistance H. Putting on/taking off footwear 03-Partial/moderate assistance - Mobility A. Roll left and right 04-Supervision or touching assistance B. Sit to lying 04-Supervision or touching assistance C. Lying to sitting on side of bed 04-Supervision or touching assistance D. Sit to stand 04-Supervision or touching assistance E. Chair/iro-xo-cmgtf transfer 03-Partial/moderate assistance F. Toilet transfer 03-Partial/moderate assistance G. Car transfer 10-Not attempted due to environmental limitations I. Walk 10 feet 03-Partial/moderate assistance J. Walk 50 feet with two turns 88-Not attempted due to medical condition or safety concerns K. Walk 150 feet 88-Not attempted due to medical condition or safety concerns L. Walking 10 feet on uneven surfaces 88-Not attempted due to medical condition or safety concerns M. 1 step (curb) 88-Not attempted due to medical condition or safety concerns N. 4 steps 88-Not attempted due to medical condition or safety concerns O. 12 steps 88-Not attempted due to medical condition or safety concerns P. Picking up object 88-Not attempted due to medical condition or safety concerns R. Wheel 50 feet with two turns 88-Not attempted due to medical condition or safety concerns S. Wheel 150 feet 88-Not attempted due to medical condition or safety concerns - Bladder and Bowel Bladder continence 5-No urine output Bowel continence 0-Always continent - Endurance Fair - Balance Fair - Safety Awareness Fair CURRENT [facility]. DEFICITS: Self-Care, Mobility, Endurance, Balance, and Safety Awareness SIGNATURE PANEL: (MACHINE VENEER REPAIRER)
[2019-06-08] MEDS: MELATONIN 3 MG TABLET PO PRN (20:53)
[2019-06-08] MEDS: INSULIN GLARGINE 100 UNITS/ML SQ SCH (20:54)
[2019-06-08] MEDS: DOCUSATE NA/SENNA CONC 1 TAB PO SCH (21:00)
[2019-06-08] MEDS: ALPRAZOLAM 0.25 MG TABLET PO PRN (23:13)
--- NOTE | 2019-06-09 03:43 | PN ---
Date of Progress Note: 06/08/2019 Subjective: Patient is undergoing rehab. He has history deconditioning. Leg edema has decreased. Fluid balance is improving with dialysis and ultrafiltration. Review of Systems: Denies fever, chills, nausea, vomiting. Physical Examination: Lungs: Clear to auscultation bilaterally. Heart: S1, S2. Abdomen: Soft, benign. Extremities: No clubbing. No cyanosis. Impression And Plan: 1. End-stage renal disease. Dialysis tomorrow. 2. Continue blood pressure medication. Blood pressure control is satisfactory. 3. Severe deconditioning and history of fracture, underwent surgery. Management by rehab team. 4. Anemia and chronic kidney disease. Continue SCARLETT. 5. Renal osteodystrophy. Continue renal diet and binders. EB/MODL Voice ID: [id number] Report ID: [id number] MTDD
[2019-06-09] MEDS: HYDROCODONE/APAP 7.5/325 MG TAB PO PRN ×3 (03:45→23:23)
[2019-06-09] MEDS: PANTOPRAZOLE 40MG TABLET PO SCH (07:13)
[2019-06-09] MEDS: INSULIN -REGULAR HUMAN 50 UNIT/0.5 ML ML SQ SCH ×4 (07:30→21:00)
[2019-06-09] MEDS: PROMOD 30 ML DOSE PO SCH ×2 (08:00→20:00)
[2019-06-09] MEDS: GABAPENTIN 300 MG CAP PO SCH ×2 (08:16→20:20)
[2019-06-09] MEDS: METOCLOPRAMIDE 5 MG TAB PO SCH (08:16)
[2019-06-09] MEDS: HYDRALAZINE HCL 25 MG TABLET PO SCH ×3 (08:16→21:33)
[2019-06-09] MEDS: SEVELAMER CARBONATE 800 MG TABLET PO SCH ×3 (08:16→17:00)
[2019-06-09] MEDS: carvediloL 12.5 MG TAB PO SCH ×2 (08:17→20:20)
[2019-06-09] MEDS: TRAMADOL HCL 50 MG TAB PO PRN ×2 (08:17→20:19)
--- NOTE | 2019-06-09 15:23 | FAST ---
SHIFT START DATE/TIME: 06/08/2019 07:00 (LOG HAUL CHAIN FEEDER) SHIFT END DATE/TIME: 06/08/2019 19:00 (LOG HAUL CHAIN FEEDER) NAME ODILIA PATEL DATE OF : 1955 DATE OF ADMISSION: 06/04/2019 18:59 (LOG HAUL CHAIN FEEDER) PHONE: AGE: 63 N# [id number] GENDER: Male ENCOUNTER PHYSICIAN: Dr. Darrell Grimm M.D. ADMISSION DIAGNOSIS: - Medically Complex Conditions 17 - Terminal Care (17.6) ESRD. Right Patella Fracture. EATING: EATING - STEP 1: Does the patient complete the activity by him/herself with no assistance (physical, verbal/nonverbal cueing, setup/clean-up)? No. EATING - STEP 2: Does the patient need only setup/clean-up assistance from one helper? Yes. 1. [id number] ADMISSION PERFORMANCE: Setup or clean-up assistance CODE: 05 ORAL HYGIENE: ORAL HYGIENE - STEP 1: Does the patient complete the activity by him/herself with no assistance (physical, verbal/nonverbal cueing, setup/clean-up)? Yes. 1. [id number] ADMISSION PERFORMANCE: Independent CODE: 06 TOILETING HYGIENE: TOILETING HYGIENE - STEP 1: Does the patient complete the activity by him/herself with no assistance (physical, verbal/nonverbal cueing, setup/clean-up)? No. TOILETING HYGIENE - STEP 2: Does the patient need only setup/clean-up assistance from one helper? Yes. 1. [id number] ADMISSION PERFORMANCE: Setup or clean-up assistance CODE: 05 BATHING: Not assessed/no information CODE: - DRESSING - UPPER BODY: DRESSING - UPPER BODY - STEP 1: Does the patient complete the activity by him/herself with no assistance (physical, verbal/nonverbal cueing, setup/clean-up)? No. DRESSING - UPPER BODY - STEP 2: Does the patient need only setup/clean-up assistance from one helper? Yes. 1. [id number] ADMISSION PERFORMANCE: Setup or clean-up assistance CODE: 05 DRESSING - LOWER BODY: DRESSING - LOWER BODY - STEP 1: Does the patient complete the activity by him/herself with no assistance (physical, verbal/nonverbal cueing, setup/clean-up)? No. DRESSING - LOWER BODY - STEP 2: Does the patient need only setup/clean-up assistance from one helper? Yes. 1. [id number] ADMISSION PERFORMANCE: Setup or clean-up assistance CODE: 05 PUTTING ON/TAKING OFF FOOTWEAR: FOOTWEAR - STEP 1: Does the patient complete the activity by him/herself with no assistance (physical, verbal/nonverbal cueing, setup/clean-up)? No. FOOTWEAR - STEP 2: Does the patient need only setup/clean-up assistance from one helper? No. FOOTWEAR - STEP 3: Does the patient need only verbal/nonverbal cueing or touching/steadying/contact guard assistance fro m one helper? Yes. 1. [id number] ADMISSION PERFORMANCE: Supervision or touching assistance CODE: 04 ROLL LEFT AND RIGHT: ROLL LEFT AND RIGHT - STEP 1: Does the patient complete the activity by him/herself with no assistance (physical, verbal/nonverbal cueing, setup/clean-up)? No. ROLL LEFT AND RIGHT - STEP 2: Does the patient need only setup/clean-up assistance from one helper? Yes. 1. [id number] ADMISSION PERFORMANCE: Setup or clean-up assistance CODE: 05 SIT TO LYING: SIT TO LYING - STEP 1: Does the patient complete the activity by him/herself with no assistance (physical, verbal/nonverbal cueing, setup/clean-up)? No. SIT TO LYING - STEP 2: Does the patient need only setup/clean-up assistance from one helper? Yes. 1. [id number] ADMISSION PERFORMANCE: Setup or clean-up assistance CODE: 05 LYING TO SITTING: LYING TO SITTING ON SIDE OF BED - STEP 1: Does the patient complete the activity by him/herself with no assistance (physical, verbal/nonverbal cueing, setup/clean-up)? No. LYING TO SITTING ON SIDE OF BED - STEP 2: Does the patient need only setup/clean-up assistance from one helper? Yes. 1. [id number] ADMISSION PERFORMANCE: Setup or clean-up assistance CODE: 05 SIT TO STAND: SIT TO STAND - STEP 1: Does the patient complete the activity by him/herself with no assistance (physical, verbal/nonverbal cueing, setup/clean-up)? No. SIT TO STAND - STEP 2: Does the patient need only setup/clean-up assistance from one helper? Yes. 1. [id number] ADMISSION PERFORMANCE: Setup or clean-up assistance CODE: 05 TRANSFERS: BED, CHAIR: [id number]/[id number] TRANSFER - STEP 1: Does the patient complete the activity by him/herself with no assistance (physical, verbal/nonverbal cueing, setup/clean-up)? No. CHAIR/[id number] TRANSFER - STEP 2: Does the patient need only setup/clean-up assistance from one helper? Yes. 1. [id number] ADMISSION PERFORMANCE: Setup or clean-up assistance CODE: 05 TRANSFER TOILET: TOILET TRANSFER - STEP 1: Does the patient complete the activity by him/herself with no assistance (physical, verbal/nonverbal cueing, setup/clean-up)? No. TOILET TRANSFER - STEP 2: Does the patient need only setup/clean-up assistance from one helper? Yes. 1. [id number] ADMISSION PERFORMANCE: Setup or clean-up assistance CODE: 05 TRANSFERS: CAR: Not assessed/no information CODE: - WALK 10 FEET: Not assessed/no information CODE: - 1 STEP (CURB): Not assessed/no information CODE: - PICKING UP OBJECT: Not assessed/no information CODE: - DOES THE PATIENT USE A WHEELCHAIR/SCOOTER? Q1. DOES THE PATIENT USE A WHEELCHAIR/SCOOTER?: Yes CODE: 1 WHEEL 50 FEET WITH TWO TURNS: WHEEL 50 FEET WITH TWO TURNS - STEP 1: Does the patient complete the activity by him/herself with no assistance (physical, verbal/nonverbal cueing, setup/clean-up)? Yes. 1. [id number] ADMISSION PERFORMANCE: Independent CODE: 06 INDICATE THE TYPE OF WHEELCHAIR/SCOOTER USED: RR1. INDICATE THE TYPE OF WHEELCHAIR/SCOOTER USED.: Manual CODE: 1 WHEEL 150 FEET: WHEEL 150 FEET - STEP 1: Does the patient complete the activity by him/herself with no assistance (physical, verbal/nonverbal cueing, setup/clean-up)? Yes. 1. [id number] ADMISSION PERFORMANCE: Independent CODE: 06 INDICATE THE TYPE OF WHEELCHAIR/SCOOTER USED: SS1. INDICATE THE TYPE OF WHEELCHAIR/SCOOTER USED.: Manual CODE: 1 BLADDER AND BOWEL: H350. BLADDER CONTINENCE (3-DAY ASSESSMENT PERIOD): No urine output (e.g., renal failure) CODE: 5 H400. BOWEL CONTINENCE (3-DAY ASSESSMENT PERIOD): Always continent CODE: 0 SIGNATURE PANEL: The following modified sections: 1. [id number] Admission Performance, 1. [id number] Admission Performance, 1. [id number] Admission Performance, 1. ZM4157l Admission Performance, 1. HL1672l Admission Performance, 1. MX5468m Admission Performance, 1. ZP5175w Admission Performance, 1. YQ4673t Admission Performance , 1. [id number] Admission Performance, 1. TI4783v Admission Performance, 1. QB1913W Admission Performanc e, 1. [id number] Admission Performance, 1. [id number] Admission Performance, 1. [id number] Admission Performan ce, 1. [id number] Admission Performance, 1. [id number] Admission Performance, 1. [id number] Admission Performa nce, 1. FX0020I Admission Performance, 1. [id number] Admission Performance, Q1. Does the patient use a w heelchair/scooter?, 1. [id number] Admission Performance, RR1. Indicate the type of wheelchair/scooter us ed., 1. [id number] Admission Performance, Code, SS1. Indicate the type of wheelchair/scooter used., H350 . Bladder Continence (3-day assessment period), H400. Bowel Continence (3-day assessment period) were [electronically] signed by Ellen aNm C.N.A. on SatJun 09 2019 15:22:27 T-0600 ([place] [address] Time)
[2019-06-09] MEDS: ENOXAPARIN 30 MG/0.3 ML SQ SCH (16:21)
[2019-06-09 17:12] LABS: Gentamicin Level, Trough 1.4 ug/mL (0-2.0)
--- NOTE | 2019-06-09 17:38 | R.PN ---
ENCOUNTER DATE AND TIME: 06/09/2019 17:31 (CHILDREN'S MINISTRIES DIRECTOR) NAME BILLY PATEL DATE OF : 1955 DATE OF ADMISSION: 06/04/2019 18:59 (CHILDREN'S MINISTRIES DIRECTOR) ESRDRight Patella FractureCHIEF COMPLAINT: End stage renal disease and debility. SUBJECTIVE: Pt denied any depression. Pt denied any Shortness of Breath. Improved glucose levels, ranged 95 to 143. Will change glucose monitoring to bid. Ambulated 250' with standby assistance using a rolling walker. Up and down 12 steps with contact guar d assistance. VITAL SIGNS Temperature: 98.4 F SBP/DBP: 129/61 Pulse: 66 Resp: 16 MEDICATION ALLERGIES: Corticosteroids ENVIRONMENTAL ALLERGIES: None Known - Substance Allergies None Known - Other Allergies None Known NURSING: - Shower allowing shower - Lab Results blood Sugar Check ACHS ACTIVITIES OOB only with supervision THERAPIES: - Dietary and Nutrition Adequate Nutrition. Nutritional Education. Nutritional Supplements. PHYSICAL EXAM - Gen Alert and awake Lying in bed No apparent distress Oriented to: person, time, and place - Skin No skin breakdown. Normacephalic - Eyes No abnormalities - ENMT No abnormalities - Neck No abnormalities - CVS RRR - Chest Clear - Abd + bowel sounds - GI Non distended Deferred - No abnormalities - Ext His right leg is in a brace with hemostasis at his surgical site. - MSK 4+/5 weakness in right lower extremity - Neuro 4/5 strength right lower extremity. - Psych No abnormalities ASSESSMENT: Pt. is a 63 yo Right-handed black male.On 05/27/[address] [facility] with diagnosis ESRD.His impairment category is Medically Complex Conditions 17 - Terminal Care ( 17.6).Pre-morbidly, Pt. was independent/mod-I in Locomotion, Safety Awareness, Balance, Social Cognit ion, Transfers Control, Sphincter Control, Self-Care, Communication, and Endurance; and he had good L ocomotion, Balance, Safety Awareness, Social Cognition, Transfers Control, Sphincter Control, Self-Ca re, Communication, and Endurance.Currently, he has deficits of Locomotion, Balance, Safety Awareness, Social Cognition, Transfers Control, Self-Care, and Endurance.Pt. is now referred to [facility] for acute in-patient rehabilitation in order to maximize patient's functional inde pendence in activities of daily living, strength, ROM, and mobility.- Rehab Goal Patient has realistic goal of being discharged at assistance level 6-Luz Elena to reside at Home with Fam juvenal/Relatives. MDM/PLAN: - Physical Therapy Gait dysfunction - to improve, our physical therapists will perform initial evaluation of pt's statu s upon admission and devise an individualized program for Gait Training, and Wheel Chair mobility Inability to transfer - to improve, our physical therapists will perform initial evaluation of pt's status upon admission and devise an individualized program for Bed mobility Need for home safety evaluation - to improve, our physical therapists will perform initial evaluatio n of pt's status upon admission and devise an individualized program for Home Evaluation Need in caregiver upon discharge - to improve, our physical therapists will perform initial evaluati on of pt's status upon admission and devise an individualized program for Caregiver Training New precaution - to improve, our physical therapists will perform initial evaluation of pt's status upon admission and devise an individualized program for Patient precaution education Poor balance - to improve, our physical therapists will perform initial evaluation of pt's status up on admission and devise an individualized program for Balance Training Poor endurance - to improve, our physical therapists will perform initial evaluation of pt's status upon admission and devise an individualized program for Endurance Training Weakness - to improve, our physical therapists will perform initial evaluation of pt's status upon a dmission and devise an individualized program for Aquatic Therapy, Neuromuscular Reeducation, and Str engthening Achieving independence - to improve, our physical therapists will perform initial evaluation of pt's status upon admission and devise an individualized program for Community Reintegration Activities - Occupational Therapy ADL deficits - to improve, our occupation therapists will perform initial evaluation of pt's status upon admission and devise an individualized program for Bathing, Bed mobility, Community Reintegratio n, Cooking, Dressing, Eating, Fine Motor Skills, Grooming, Homemaking, Kitchen Mobility, Laundry, Pat ient Education, Safety Awareness, Splinting - Positioning, Transfers(Toilet, Tub, Shower), and Wheel Chair Management Cognitive deficits - to improve, our occupation therapists will perform initial evaluation of pt's s tatus upon admission and devise an individualized program for Cognition - orientation Need for lpn care manager - to improve, our occupation therapists will perform initial evaluation of pt's status upon admission and devise an individualized program for Caregiver Training Weakness - to improve, our occupation therapists will perform initial evaluation of pt's status upon admission and devise an individualized program for Aquatic Therapy, Balance, Endurance, UE ROM, and UE strengthening - Other See attached MAR (Medication Administration Record) See attached MAR (Medication Administration Record) Billy Patel.pdf - Diet Type Continue Regular - Diet - Liquid Texture Continue Regular - Tube Feed Continue N/A - Lab Results blood Sugar Check ACHS - Diet - Solid Texture Continue Regular - Shower allowing shower FUNCTIONAL STATUS: UPDATED AT WEEKLY TEAM CONFERENCE - Bladder Same accident frequency: 7-Ind - No accidents in the past 7 days - Bowel Same accident frequency: 7-Ind - No accidents in the past 7 days - Walking Same score based on distance walked: 0(N/A) Same score based on distance walked: 1(<=50ft) - Wheelchair Same score based on distance traveled: 0(N/A) FUNCTIONAL STATUS: - Self-Care A. Eating Ind B. Grooming Ind C. Bathing Ind D. Dressing - Upper Ind E. Dressing - Lower Gayle F. Toileting sup - Sphincter Control G. Bladder control Luz Elena H. Bowel control Luz Elena - Transfers Control I. Bed/Chair/Wheelchair Gayle J. Toilet Gayle K. Tub/Shower Gayle - Locomotion L. Walk/Wheelchair (B) sup M. Stairs Ind - Communication N. Comprehension (B) Luz Elena O. Expression (B) Luz Elena - Social Cognition P. Social Interaction Luz Elena Q. Problem Solving sup R. Memory sup - Endurance Fair - Balance Fair - Safety Awareness Fair QI SCORES: - Self-Care A. Eating 05-Setup or clean-up assistance B. Oral hygiene 05-Setup or clean-up assistance C. Toileting hygiene 04-Supervision or touching assistance E. Shower/bathe self 04-Supervision or touching assistance F. Upper body dressing 04-Supervision or touching assistance G. Lower body dressing 03-Partial/moderate assistance H. Putting on/taking off footwear 03-Partial/moderate assistance - Mobility A. Roll left and right 04-Supervision or touching assistance B. Sit to lying 04-Supervision or touching assistance C. Lying to sitting on side of bed 04-Supervision or touching assistance D. Sit to stand 04-Supervision or touching assistance E. Chair/jlb-hp-pchnz transfer 03-Partial/moderate assistance F. Toilet transfer 03-Partial/moderate assistance G. Car transfer 10-Not attempted due to environmental limitations I. Walk 10 feet 03-Partial/moderate assistance J. Walk 50 feet with two turns 88-Not attempted due to medical condition or safety concerns K. Walk 150 feet 88-Not attempted due to medical condition or safety concerns L. Walking 10 feet on uneven surfaces 88-Not attempted due to medical condition or safety concerns M. 1 step (curb) 88-Not attempted due to medical condition or safety concerns N. 4 steps 88-Not attempted due to medical condition or safety concerns O. 12 steps 88-Not attempted due to medical condition or safety concerns P. Picking up object 88-Not attempted due to medical condition or safety concerns R. Wheel 50 feet with two turns 88-Not attempted due to medical condition or safety concerns S. Wheel 150 feet 88-Not attempted due to medical condition or safety concerns - Bladder and Bowel Bladder continence 5-No urine output Bowel continence 0-Always continent - Endurance Fair - Balance Fair - Safety Awareness Fair CURRENT [facility]. DEFICITS: Self-Care, Mobility, Endurance, Balance, and Safety Awareness SIGNATURE PANEL: (CHILDREN[employer]S MINISTRIES DIRECTOR)
[2019-06-09] MEDS: GENTAMICIN 80 MG/100 ML BAG 80 MG/100 ML BAG IV SCH (20:21)
[2019-06-09] MEDS: INSULIN GLARGINE 100 UNITS/ML SQ SCH (21:00)
[2019-06-09] MEDS: CYCLOBENZAPRINE 10 MG TAB PO PRN (21:33)
[2019-06-09] MEDS: DOCUSATE NA/SENNA CONC 1 TAB PO SCH (21:34)
[2019-06-09] MEDS: MELATONIN 3 MG TABLET PO PRN (21:34)
[2019-06-10] MEDS: PANTOPRAZOLE 40MG TABLET PO SCH (06:53)
[2019-06-10] MEDS: INSULIN -REGULAR HUMAN 50 UNIT/0.5 ML ML SQ SCH ×4 (07:30→20:14)
[2019-06-10] MEDS: PROMOD 30 ML DOSE PO SCH ×2 (08:00→20:00)
[2019-06-10] MEDS: SEVELAMER CARBONATE 800 MG TABLET PO SCH ×3 (08:10→17:16)
[2019-06-10] MEDS: METOCLOPRAMIDE 5 MG TAB PO SCH (08:10)
[2019-06-10] MEDS: carvediloL 12.5 MG TAB PO SCH ×2 (08:11→20:13)
[2019-06-10] MEDS: GABAPENTIN 300 MG CAP PO SCH ×2 (08:11→20:13)
[2019-06-10] MEDS: TRAMADOL HCL 50 MG TAB PO PRN (08:16)
[2019-06-10] MEDS: HYDRALAZINE HCL 25 MG TABLET PO SCH ×3 (10:07→20:12)
[2019-06-10] MEDS: HYDROCODONE/APAP 7.5/325 MG TAB PO PRN ×2 (14:17→20:12)
--- NOTE | 2019-06-10 14:48 | FAST ---
ENCOUNTER DATE AND TIME: 06/10/2019 08:00 (BLACKJACK SUPERVISOR) NAME ODILIA PATEL DATE OF : 1955 DATE OF ADMISSION: 06/04/2019 18:59 (BLACKJACK SUPERVISOR) PHONE: AGE: 63 N# [id number] GENDER: Male ENCOUNTER PHYSICIAN: Dr. Darrell Grimm M.D. ADMISSION DIAGNOSIS: - Medically Complex Conditions 17 - Terminal Care (17.6) ESRD. Right Patella Fracture. EATING: Not assessed/no information CODE: - ORAL HYGIENE: ORAL HYGIENE - STEP 1: Does the patient complete the activity by him/herself with no assistance (physical, verbal/nonverbal cueing, setup/clean-up)? Yes. 1. [id number] ADMISSION PERFORMANCE: Independent CODE: 06 TOILETING HYGIENE: Not assessed/no information CODE: - BATHING: SHOWER/BATHE SELF - STEP 1: Does the patient complete the activity by him/herself with no assistance (physical, verbal/nonverbal cueing, setup/clean-up)? No. SHOWER/BATHE SELF - STEP 2: Does the patient need only setup/clean-up assistance from one helper? No. SHOWER/BATHE SELF - STEP 3: Does the patient need only verbal/nonverbal cueing or touching/steadying/contact guard assistance fro m one helper? Yes. 1. [id number] ADMISSION PERFORMANCE: Supervision or touching assistance CODE: 04 DRESSING - UPPER BODY: DRESSING - UPPER BODY - STEP 1: Does the patient complete the activity by him/herself with no assistance (physical, verbal/nonverbal cueing, setup/clean-up)? No. DRESSING - UPPER BODY - STEP 2: Does the patient need only setup/clean-up assistance from one helper? Yes. 1. [id number] ADMISSION PERFORMANCE: Setup or clean-up assistance CODE: 05 DRESSING - LOWER BODY: DRESSING - LOWER BODY - STEP 1: Does the patient complete the activity by him/herself with no assistance (physical, verbal/nonverbal cueing, setup/clean-up)? No. DRESSING - LOWER BODY - STEP 2: Does the patient need only setup/clean-up assistance from one helper? No. DRESSING - LOWER BODY - STEP 3: Does the patient need only verbal/nonverbal cueing or touching/steadying/contact guard assistance fro m one helper? Yes. 1. [id number] ADMISSION PERFORMANCE: Supervision or touching assistance CODE: 04 PUTTING ON/TAKING OFF FOOTWEAR: FOOTWEAR - STEP 1: Does the patient complete the activity by him/herself with no assistance (physical, verbal/nonverbal cueing, setup/clean-up)? No. FOOTWEAR - STEP 2: Does the patient need only setup/clean-up assistance from one helper? No. FOOTWEAR - STEP 3: Does the patient need only verbal/nonverbal cueing or touching/steadying/contact guard assistance fro m one helper? Yes. 1. [id number] ADMISSION PERFORMANCE: Supervision or touching assistance CODE: 04 DOES THE PATIENT USE A WHEELCHAIR/SCOOTER? CODE: EXPR INDICATE THE TYPE OF WHEELCHAIR/SCOOTER USED: CODE: EXPR INDICATE THE TYPE OF WHEELCHAIR/SCOOTER USED: CODE: EXPR BLADDER AND BOWEL: CODE: EXPR CODE: EXPR SIGNATURE PANEL: The following modified sections: 1. [id number] Admission Performance, 1. [id number] Admission Performance, 1. [id number] Admission Performance, 1. [id number] Admission Performance, 1. [id number] Admission Performance, 1. [id number] Admission Performance were [electronically] signed by ALEX Hicks on SatJun 10 2019 14:47:08 GMT-0600 (Central Standard Time)
[2019-06-10] MEDS: ENOXAPARIN 30 MG/0.3 ML SQ SCH (16:07)
--- NOTE | 2019-06-10 17:51 | R.PN ---
ENCOUNTER DATE AND TIME: 06/10/2019 17:46 (JOINT YARNER) NAME BILLY PATEL DATE OF : 1955 DATE OF ADMISSION: 06/04/2019 18:59 (JOINT YARNER) ESRDRight Patella FractureCHIEF COMPLAINT: End stage renal disease and debility. SUBJECTIVE: Pt denied any depression. Pt denied any Shortness of Breath. Improved glucose levels, ranged 74 to 104. Will change glucose monitoring to bid. Ambulated 450' with standby assistance using a rolling walker. Up and down 15 steps with contact guar d assistance. Gentamicin level 1.4, Vancomycin 9.0. VITAL SIGNS Temperature: 98.4 F SBP/DBP: 156/71 Pulse: 67 Resp: 16 MEDICATION ALLERGIES: Corticosteroids ENVIRONMENTAL ALLERGIES: None Known - Substance Allergies None Known - Other Allergies None Known NURSING: - Shower allowing shower - Lab Results blood Sugar Check ACHS ACTIVITIES OOB only with supervision THERAPIES: - Dietary and Nutrition Adequate Nutrition. Nutritional Education. Nutritional Supplements. PHYSICAL EXAM - Gen Alert and awake Lying in bed No apparent distress Oriented to: person, time, and place - Skin No skin breakdown. Normacephalic - Eyes No abnormalities - ENMT No abnormalities - Neck No abnormalities - CVS RRR - Chest Clear - Abd + bowel sounds - GI Non distended Deferred - No abnormalities - Ext His right leg is in a brace with hemostasis at his surgical site. - MSK 4+/5 weakness in right lower extremity - Neuro 4/5 strength right lower extremity. - Psych No abnormalities ASSESSMENT: Pt. is a 63 yo Right-handed black male.On 05/27/2019 he was admitted to [facility] with diagnosis ESRD.His impairment category is Medically Complex Conditions 17 - Terminal Care ( 17.6).Pre-morbidly, Pt. was independent/mod-I in Locomotion, Safety Awareness, Balance, Social Cognit ion, Transfers Control, Sphincter Control, Self-Care, Communication, and Endurance; and he had good L ocomotion, Balance, Safety Awareness, Social Cognition, Transfers Control, Sphincter Control, Self-Ca re, Communication, and Endurance.Currently, he has deficits of Locomotion, Balance, Safety Awareness, Social Cognition, Transfers Control, Self-Care, and Endurance.Pt. is now referred to [facility] for acute in-patient rehabilitation in order to maximize patient's functional inde pendence in activities of daily living, strength, ROM, and mobility.- Rehab Goal Patient has realistic goal of being discharged at assistance level 6-Luz Elena to reside at Home with Fam juvenal/Relatives. MDM/PLAN: - Physical Therapy Gait dysfunction - to improve, our physical therapists will perform initial evaluation of pt's statu s upon admission and devise an individualized program for Gait Training, and Wheel Chair mobility Inability to transfer - to improve, our physical therapists will perform initial evaluation of pt's status upon admission and devise an individualized program for Bed mobility Need for home safety evaluation - to improve, our physical therapists will perform initial evaluatio n of pt's status upon admission and devise an individualized program for Home Evaluation Need in caregiver upon discharge - to improve, our physical therapists will perform initial evaluati on of pt's status upon admission and devise an individualized program for Caregiver Training New precaution - to improve, our physical therapists will perform initial evaluation of pt's status upon admission and devise an individualized program for Patient precaution education Poor balance - to improve, our physical therapists will perform initial evaluation of pt's status up on admission and devise an individualized program for Balance Training Poor endurance - to improve, our physical therapists will perform initial evaluation of pt's status upon admission and devise an individualized program for Endurance Training Weakness - to improve, our physical therapists will perform initial evaluation of pt's status upon a dmission and devise an individualized program for Aquatic Therapy, Neuromuscular Reeducation, and Str engthening Achieving independence - to improve, our physical therapists will perform initial evaluation of pt's status upon admission and devise an individualized program for Community Reintegration Activities - Occupational Therapy ADL deficits - to improve, our occupation therapists will perform initial evaluation of pt's status upon admission and devise an individualized program for Bathing, Bed mobility, Community Reintegratio n, Cooking, Dressing, Eating, Fine Motor Skills, Grooming, Homemaking, Kitchen Mobility, Laundry, Pat ient Education, Safety Awareness, Splinting - Positioning, Transfers(Toilet, Tub, Shower), and Wheel Chair Management Cognitive deficits - to improve, our occupation therapists will perform initial evaluation of pt's s tatus upon admission and devise an individualized program for Cognition - orientation Need for care navigator - to improve, our occupation therapists will perform initial evaluation of pt's status upon admission and devise an individualized program for Caregiver Training Weakness - to improve, our occupation therapists will perform initial evaluation of pt's status upon admission and devise an individualized program for Aquatic Therapy, Balance, Endurance, UE ROM, and UE strengthening - Other See attached MAR (Medication Administration Record) See attached MAR (Medication Administration Record) Billy Patel.pdf - Diet Type Continue Regular - Diet - Liquid Texture Continue Regular - Tube Feed Continue N/A - Lab Results blood Sugar Check ACHS - Diet - Solid Texture Continue Regular - Shower allowing shower FUNCTIONAL STATUS: UPDATED AT WEEKLY TEAM CONFERENCE - Bladder Same accident frequency: 7-Ind - No accidents in the past 7 days - Bowel Same accident frequency: 7-Ind - No accidents in the past 7 days - Walking Same score based on distance walked: 0(N/A) Same score based on distance walked: 1(<=50ft) - Wheelchair Same score based on distance traveled: 0(N/A) FUNCTIONAL STATUS: - Self-Care A. Eating Ind B. Grooming Ind C. Bathing Ind D. Dressing - Upper Ind E. Dressing - Lower Gayle F. Toileting sup - Sphincter Control G. Bladder control Luz Elena H. Bowel control Luz Elena - Transfers Control I. Bed/Chair/Wheelchair Gayle J. Toilet Gayle K. Tub/Shower Gayle - Locomotion L. Walk/Wheelchair (B) sup M. Stairs Ind - Communication N. Comprehension (B) Luz Elena O. Expression (B) Luz Elena - Social Cognition P. Social Interaction Luz Elena Q. Problem Solving sup R. Memory sup - Endurance Fair - Balance Fair - Safety Awareness Fair QI SCORES: - Self-Care A. Eating 05-Setup or clean-up assistance B. Oral hygiene 05-Setup or clean-up assistance C. Toileting hygiene 04-Supervision or touching assistance E. Shower/bathe self 04-Supervision or touching assistance F. Upper body dressing 04-Supervision or touching assistance G. Lower body dressing 03-Partial/moderate assistance H. Putting on/taking off footwear 03-Partial/moderate assistance - Mobility A. Roll left and right 04-Supervision or touching assistance B. Sit to lying 04-Supervision or touching assistance C. Lying to sitting on side of bed 04-Supervision or touching assistance D. Sit to stand 04-Supervision or touching assistance E. Chair/hyd-hg-rgadk transfer 03-Partial/moderate assistance F. Toilet transfer 03-Partial/moderate assistance G. Car transfer 10-Not attempted due to environmental limitations I. Walk 10 feet 03-Partial/moderate assistance J. Walk 50 feet with two turns 88-Not attempted due to medical condition or safety concerns K. Walk 150 feet 88-Not attempted due to medical condition or safety concerns L. Walking 10 feet on uneven surfaces 88-Not attempted due to medical condition or safety concerns M. 1 step (curb) 88-Not attempted due to medical condition or safety concerns N. 4 steps 88-Not attempted due to medical condition or safety concerns O. 12 steps 88-Not attempted due to medical condition or safety concerns P. Picking up object 88-Not attempted due to medical condition or safety concerns R. Wheel 50 feet with two turns 88-Not attempted due to medical condition or safety concerns S. Wheel 150 feet 88-Not attempted due to medical condition or safety concerns - Bladder and Bowel Bladder continence 5-No urine output Bowel continence 0-Always continent - Endurance Fair - Balance Fair - Safety Awareness Fair CURRENT [facility]. DEFICITS: Self-Care, Mobility, Endurance, Balance, and Safety Awareness SIGNATURE PANEL: (JOINT YARNER)
[2019-06-10] MEDS: INSULIN GLARGINE 100 UNITS/ML SQ SCH (20:11)
[2019-06-10] MEDS: ALPRAZOLAM 0.25 MG TABLET PO PRN (20:11)
[2019-06-10] MEDS: MELATONIN 3 MG TABLET PO PRN (20:12)
[2019-06-10] MEDS: CYCLOBENZAPRINE 10 MG TAB PO PRN (20:12)
[2019-06-10] MEDS: DOCUSATE NA/SENNA CONC 1 TAB PO SCH (20:13)
--- NOTE | 2019-06-10 21:44 | PN ---
Date of Progress Note: 06/10/2019 History: The patient is doing well, participating in physical therapy status post dialysis yesterday , managed to remove 2.5 L. Physical Examination: Vital Signs: Blood pressure 156/71, pulse of 67, afebrile. Chest: Clear to auscultation. Heart: S1, S2. Systolic murmur. Abdomen: Soft, nontender. Extremities: No edema. Cast on the left knee. Laboratory Data: H and H 9.2 and 28.4. Sodium 140, potassium 4, bicarb 30, BUN 36, creatinine 4, ca lcium 8, magnesium 2.3, albumin 2.8. Current Medications: The patient on include, 1.Heparin. 2.Lovenox. 3.Carvedilol 12.5 b.i.d. 4.Hydralazine 50 t.i.d. 5.Alprazolam. 6.Gabapentin 800 t.i.d. 7.Zofran. 8.Pantoprazole. Assessment And Plan: 1.End-stage renal disease, normal volume. We will continue dialysis the patient TTS. Patient is go ing to be scheduled for dialysis tomorrow. 2.Hypertension, controlled. We will follow up blood pressure after dialysis. 3.Anemia of chronic kidney disease. Continue Epogen. 4.Hyperkalemia, resolved. 5.Knee fracture status post surgery. We will follow up with rehab. 6.Light chain disease, stable. Continue to monitor the patient. MALINDA/ZULEIMA Voice ID: [id number] Report ID: [id number]
[2019-06-11] MEDS: TRAMADOL HCL 50 MG TAB PO PRN ×3 (01:09→19:45)
[2019-06-11 06:00] LABS: Basophils % 0.4 % (0-1.3); Hematocrit 23.9 % (39.6-49.0); Lymphocytes % 10.9 % (15.3-44.8); MPV 8.3 fL (7.6-11.3)
[2019-06-11] MEDS: PANTOPRAZOLE 40MG TABLET PO SCH (06:27)
[2019-06-11] MEDS: INSULIN -REGULAR HUMAN 50 UNIT/0.5 ML ML SQ SCH ×4 (07:07→19:49)
[2019-06-11 07:32] LABS: Albumin 2.6 g/dL (3.4-5.0); Magnesium 2.6 mg/dL (1.8-2.4); Potassium 4.2 mmol/L (3.5-5.1); Prealbumin 18.9 mg/dL (20-40)
[2019-06-11] MEDS: PROMOD 30 ML DOSE PO SCH ×2 (08:00→19:48)
[2019-06-11] MEDS: METOCLOPRAMIDE 5 MG TAB PO SCH (08:20)
[2019-06-11] MEDS: SEVELAMER CARBONATE 800 MG TABLET PO SCH ×3 (08:20→19:45)
[2019-06-11] MEDS: HYDROCODONE/APAP 7.5/325 MG TAB PO PRN ×2 (08:20→15:04)
[2019-06-11] MEDS: GABAPENTIN 300 MG CAP PO SCH ×2 (08:20→19:45)
[2019-06-11] MEDS: HYDRALAZINE HCL 25 MG TABLET PO SCH ×3 (08:21→19:45)
[2019-06-11] MEDS: carvediloL 12.5 MG TAB PO SCH ×2 (08:21→19:47)
[2019-06-11] MEDS ORDERED: EPOETIN 4,000 UNIT/ML VIAL IV SCH (10:45)
--- NOTE | 2019-06-11 16:13 | FAST ---
SHIFT START DATE/TIME: 06/11/2019 07:00 (HOT ROLL LAMINATOR) SHIFT END DATE/TIME: 06/11/2019 19:00 (HOT ROLL LAMINATOR) NAME ODILIA PATEL DATE OF : 1955 DATE OF ADMISSION: 06/04/2019 18:59 (HOT ROLL LAMINATOR) PHONE: AGE: 63 N# [id number] GENDER: Male ENCOUNTER PHYSICIAN: Dr. Darrell Grimm M.D. ADMISSION DIAGNOSIS: - Medically Complex Conditions 17 - Terminal Care (17.6) ESRD. Right Patella Fracture. EATING: EATING - STEP 1: Does the patient complete the activity by him/herself with no assistance (physical, verbal/nonverbal cueing, setup/clean-up)? Yes. 1. [id number] ADMISSION PERFORMANCE: Independent CODE: 06 ORAL HYGIENE: ORAL HYGIENE - STEP 1: Does the patient complete the activity by him/herself with no assistance (physical, verbal/nonverbal cueing, setup/clean-up)? Yes. 1. [id number] ADMISSION PERFORMANCE: Independent CODE: 06 TOILETING HYGIENE: TOILETING HYGIENE - STEP 1: Does the patient complete the activity by him/herself with no assistance (physical, verbal/nonverbal cueing, setup/clean-up)? No. TOILETING HYGIENE - STEP 2: Does the patient need only setup/clean-up assistance from one helper? Yes. 1. [id number] ADMISSION PERFORMANCE: Setup or clean-up assistance CODE: 05 BATHING: Not assessed/no information CODE: - DRESSING - UPPER BODY: DRESSING - UPPER BODY - STEP 1: Does the patient complete the activity by him/herself with no assistance (physical, verbal/nonverbal cueing, setup/clean-up)? Yes. 1. [id number] ADMISSION PERFORMANCE: Independent CODE: 06 DRESSING - LOWER BODY: DRESSING - LOWER BODY - STEP 1: Does the patient complete the activity by him/herself with no assistance (physical, verbal/nonverbal cueing, setup/clean-up)? Yes. 1. [id number] ADMISSION PERFORMANCE: Independent CODE: 06 PUTTING ON/TAKING OFF FOOTWEAR: FOOTWEAR - STEP 1: Does the patient complete the activity by him/herself with no assistance (physical, verbal/nonverbal cueing, setup/clean-up)? No. FOOTWEAR - STEP 2: Does the patient need only setup/clean-up assistance from one helper? No. FOOTWEAR - STEP 3: Does the patient need only verbal/nonverbal cueing or touching/steadying/contact guard assistance fro m one helper? Yes. 1. [id number] ADMISSION PERFORMANCE: Supervision or touching assistance CODE: 04 ROLL LEFT AND RIGHT: ROLL LEFT AND RIGHT - STEP 1: Does the patient complete the activity by him/herself with no assistance (physical, verbal/nonverbal cueing, setup/clean-up)? No. ROLL LEFT AND RIGHT - STEP 2: Does the patient need only setup/clean-up assistance from one helper? Yes. 1. [id number] ADMISSION PERFORMANCE: Setup or clean-up assistance CODE: 05 SIT TO LYING: SIT TO LYING - STEP 1: Does the patient complete the activity by him/herself with no assistance (physical, verbal/nonverbal cueing, setup/clean-up)? No. SIT TO LYING - STEP 2: Does the patient need only setup/clean-up assistance from one helper? Yes. 1. [id number] ADMISSION PERFORMANCE: Setup or clean-up assistance CODE: 05 LYING TO SITTING: LYING TO SITTING ON SIDE OF BED - STEP 1: Does the patient complete the activity by him/herself with no assistance (physical, verbal/nonverbal cueing, setup/clean-up)? No. LYING TO SITTING ON SIDE OF BED - STEP 2: Does the patient need only setup/clean-up assistance from one helper? Yes. 1. [id number] ADMISSION PERFORMANCE: Setup or clean-up assistance CODE: 05 SIT TO STAND: SIT TO STAND - STEP 1: Does the patient complete the activity by him/herself with no assistance (physical, verbal/nonverbal cueing, setup/clean-up)? No. SIT TO STAND - STEP 2: Does the patient need only setup/clean-up assistance from one helper? Yes. 1. [id number] ADMISSION PERFORMANCE: Setup or clean-up assistance CODE: 05 TRANSFERS: BED, CHAIR: CHAIR/[id number] TRANSFER - STEP 1: Does the patient complete the activity by him/herself with no assistance (physical, verbal/nonverbal cueing, setup/clean-up)? No. CHAIR/[id number] TRANSFER - STEP 2: Does the patient need only setup/clean-up assistance from one helper? Yes. 1. [id number] ADMISSION PERFORMANCE: Setup or clean-up assistance CODE: 05 TRANSFER TOILET: TOILET TRANSFER - STEP 1: Does the patient complete the activity by him/herself with no assistance (physical, verbal/nonverbal cueing, setup/clean-up)? No. TOILET TRANSFER - STEP 2: Does the patient need only setup/clean-up assistance from one helper? Yes. 1. [id number] ADMISSION PERFORMANCE: Setup or clean-up assistance CODE: 05 TRANSFERS: CAR: Not assessed/no information CODE: - WALK 10 FEET: Not assessed/no information CODE: - 1 STEP (CURB): Not assessed/no information CODE: - PICKING UP OBJECT: Not assessed/no information CODE: - DOES THE PATIENT USE A WHEELCHAIR/SCOOTER? Q1. DOES THE PATIENT USE A WHEELCHAIR/SCOOTER?: Yes CODE: 1 WHEEL 50 FEET WITH TWO TURNS: WHEEL 50 FEET WITH TWO TURNS - STEP 1: Does the patient complete the activity by him/herself with no assistance (physical, verbal/nonverbal cueing, setup/clean-up)? Yes. 1. [id number] ADMISSION PERFORMANCE: Independent CODE: 06 INDICATE THE TYPE OF WHEELCHAIR/SCOOTER USED: RR1. INDICATE THE TYPE OF WHEELCHAIR/SCOOTER USED.: Manual CODE: 1 WHEEL 150 FEET: Not assessed/no information WHEEL 150 FEET - STEP 1: Does the patient complete the activity by him/herself with no assistance (physical, verbal/nonverbal cueing, setup/clean-up)? Yes. 1. [id number] ADMISSION PERFORMANCE: Independent CODE: 06 INDICATE THE TYPE OF WHEELCHAIR/SCOOTER USED: SS1. INDICATE THE TYPE OF WHEELCHAIR/SCOOTER USED.: Manual CODE: 1 BLADDER AND BOWEL: H350. BLADDER CONTINENCE (3-DAY ASSESSMENT PERIOD): Always continent (no documented incontinence) CODE: 0 H400. BOWEL CONTINENCE (3-DAY ASSESSMENT PERIOD): Always continent CODE: 0 SIGNATURE PANEL: The following modified sections: 1. [id number] Admission Performance, 1. [id number] Admission Performance, 1. UM4125H Admission Performance, 1. IY1856I Admission Performance, 1. NB7646a Admission Performance, 1. WJ1616f Admission Performance, 1. HR1986o Admission Performance, 1. NV8325B Admission Performance , 1. JD4391Q Admission Performance, 1. LO8998G Admission Performance, 1. LQ3866Z Admission Performanc e, 1. DG0672C Admission Performance, 1. BO3672R Admission Performance, Q1. Does the patient use a whe elchair/scooter?, 1. PE7733D Admission Performance, RR1. Indicate the type of wheelchair/scooter used ., Code, SS1. Indicate the type of wheelchair/scooter used., H350. Bladder Continence (3-day assessme nt period), H350. Bladder Continence (3-day assessment period), H400. Bowel Continence (3-day assessm ent period), 1. BT6057T Admission Performance, 1. WA0181O Admission Performance, 1. BS4541H Admission Performance, 1. KS5639j Admission Performance, 1. OQ8123t Admission Performance, 1. YV6167l Admissio n Performance, 1. KB6250v Admission Performance, 1. DO4121a Admission Performance, 1. BK2064B Admissi on Performance, 1. AI3730H Admission Performance, 1. RT8501F Admission Performance, 1. LO3274Q Admiss ion Performance, 1. QZ4990H Admission Performance, 1. CD0530Z Admission Performance, 1. GK1211D Admis marty Performance, 1. NJ8444M Admission Performance, 1. BB2099S Admission Performance, Code were [elec tronically] signed by [email or web address] on SatJun 11 2019 16:12:44 GMT-0600 (Central Standard Brian e)
[2019-06-11] MEDS ORDERED: NA CHLORIDE 0.9% 250 ML ONE (16:32)
--- NOTE | 2019-06-11 18:58 | R.PN ---
ENCOUNTER DATE AND TIME: 06/11/2019 18:46 (CONSUMER LENDING MANAGER) NAME BILLY PATEL DATE OF : 1955 DATE OF ADMISSION: 06/04/2019 18:59 (CONSUMER LENDING MANAGER) ESRDRight Patella FractureCHIEF COMPLAINT: End stage renal disease and debility. SUBJECTIVE: Pt denied any depression. Pt denied any Shortness of Breath. Improved glucose levels, ranged 74 to 104. Will change glucose monitoring to bid. Ambulated 450' with standby assistance using a rolling walker. Up and down 15 steps with contact guar d assistance. Gentamicin level 1.4, Vancomycin 9.0. VITAL SIGNS Temperature: 97.9 F SBP/DBP: 141/67 Pulse: 62 Resp: 14 MEDICATION ALLERGIES: Corticosteroids ENVIRONMENTAL ALLERGIES: None Known - Substance Allergies None Known - Other Allergies None Known NURSING: - Shower allowing shower - Lab Results blood Sugar Check ACHS ACTIVITIES OOB only with supervision THERAPIES: - Dietary and Nutrition Adequate Nutrition. Nutritional Education. Nutritional Supplements. PHYSICAL EXAM - Gen Alert and awake Lying in bed No apparent distress Oriented to: person, time, and place - Skin No skin breakdown. Normacephalic - Eyes No abnormalities - ENMT No abnormalities - Neck No abnormalities - CVS RRR - Chest Clear - Abd + bowel sounds - GI Non distended Deferred - No abnormalities - Ext His right leg is in a brace with hemostasis at his surgical site. - MSK 4+/5 weakness in right lower extremity - Neuro 4/5 strength right lower extremity. - Psych No abnormalities ASSESSMENT: Pt. is a 63 yo Right-handed black male.On 05/27/2019 he was admitted to [facility] with diagnosis ESRD.His impairment category is Medically Complex Conditions 17 - Terminal Care ( 17.6).Pre-morbidly, Pt. was independent/mod-I in Locomotion, Safety Awareness, Balance, Social Cognit ion, Transfers Control, Sphincter Control, Self-Care, Communication, and Endurance; and he had good L ocomotion, Balance, Safety Awareness, Social Cognition, Transfers Control, Sphincter Control, Self-Ca re, Communication, and Endurance.Currently, he has deficits of Locomotion, Balance, Safety Awareness, Social Cognition, Transfers Control, Self-Care, and Endurance.Pt. is now referred to [facility] for acute in-patient rehabilitation in order to maximize patient's functional inde pendence in activities of daily living, strength, ROM, and mobility.- Rehab Goal Patient has realistic goal of being discharged at assistance level 6-Luz Elena to reside at Home with Fam juvenal/Relatives. MDM/PLAN: - Physical Therapy Gait dysfunction - to improve, our physical therapists will perform initial evaluation of pt's statu s upon admission and devise an individualized program for Gait Training, and Wheel Chair mobility Inability to transfer - to improve, our physical therapists will perform initial evaluation of pt's status upon admission and devise an individualized program for Bed mobility Need for home safety evaluation - to improve, our physical therapists will perform initial evaluatio n of pt's status upon admission and devise an individualized program for Home Evaluation Need in caregiver upon discharge - to improve, our physical therapists will perform initial evaluati on of pt's status upon admission and devise an individualized program for Caregiver Training New precaution - to improve, our physical therapists will perform initial evaluation of pt's status upon admission and devise an individualized program for Patient precaution education Poor balance - to improve, our physical therapists will perform initial evaluation of pt's status up on admission and devise an individualized program for Balance Training Poor endurance - to improve, our physical therapists will perform initial evaluation of pt's status upon admission and devise an individualized program for Endurance Training Weakness - to improve, our physical therapists will perform initial evaluation of pt's status upon a dmission and devise an individualized program for Aquatic Therapy, Neuromuscular Reeducation, and Str engthening Achieving independence - to improve, our physical therapists will perform initial evaluation of pt's status upon admission and devise an individualized program for Community Reintegration Activities - Occupational Therapy ADL deficits - to improve, our occupation therapists will perform initial evaluation of pt's status upon admission and devise an individualized program for Bathing, Bed mobility, Community Reintegratio n, Cooking, Dressing, Eating, Fine Motor Skills, Grooming, Homemaking, Kitchen Mobility, Laundry, Pat ient Education, Safety Awareness, Splinting - Positioning, Transfers(Toilet, Tub, Shower), and Wheel Chair Management Cognitive deficits - to improve, our occupation therapists will perform initial evaluation of pt's s tatus upon admission and devise an individualized program for Cognition - orientation Need for reproductive healthcare assistant - to improve, our occupation therapists will perform initial evaluation of pt's status upon admission and devise an individualized program for Caregiver Training Weakness - to improve, our occupation therapists will perform initial evaluation of pt's status upon admission and devise an individualized program for Aquatic Therapy, Balance, Endurance, UE ROM, and UE strengthening - Other See attached MAR (Medication Administration Record) See attached MAR (Medication Administration Record) Billy Patel.pdf - Diet Type Continue Regular - Diet - Liquid Texture Continue Regular - Tube Feed Continue N/A - Lab Results blood Sugar Check ACHS - Diet - Solid Texture Continue Regular - Shower allowing shower FUNCTIONAL STATUS: UPDATED AT WEEKLY TEAM CONFERENCE - Bladder Same accident frequency: 7-Ind - No accidents in the past 7 days - Bowel Same accident frequency: 7-Ind - No accidents in the past 7 days - Walking Same score based on distance walked: 0(N/A) Same score based on distance walked: 1(<=50ft) - Wheelchair Same score based on distance traveled: 0(N/A) FUNCTIONAL STATUS: - Self-Care A. Eating Ind B. Grooming Ind C. Bathing Ind D. Dressing - Upper Ind E. Dressing - Lower Gayle F. Toileting sup - Sphincter Control G. Bladder control Luz Elena H. Bowel control Luz Elena - Transfers Control I. Bed/Chair/Wheelchair Gayle J. Toilet Gayle K. Tub/Shower Gayle - Locomotion L. Walk/Wheelchair (B) sup M. Stairs Ind - Communication N. Comprehension (B) Luz Elena O. Expression (B) Luz Elena - Social Cognition P. Social Interaction Luz Elena Q. Problem Solving sup R. Memory sup - Endurance Fair - Balance Fair - Safety Awareness Fair QI SCORES: - Self-Care A. Eating 05-Setup or clean-up assistance B. Oral hygiene 05-Setup or clean-up assistance C. Toileting hygiene 04-Supervision or touching assistance E. Shower/bathe self 04-Supervision or touching assistance F. Upper body dressing 04-Supervision or touching assistance G. Lower body dressing 03-Partial/moderate assistance H. Putting on/taking off footwear 03-Partial/moderate assistance - Mobility A. Roll left and right 04-Supervision or touching assistance B. Sit to lying 04-Supervision or touching assistance C. Lying to sitting on side of bed 04-Supervision or touching assistance D. Sit to stand 04-Supervision or touching assistance E. Chair/ecu-tt-hmoub transfer 03-Partial/moderate assistance F. Toilet transfer 03-Partial/moderate assistance G. Car transfer 10-Not attempted due to environmental limitations I. Walk 10 feet 03-Partial/moderate assistance J. Walk 50 feet with two turns 88-Not attempted due to medical condition or safety concerns K. Walk 150 feet 88-Not attempted due to medical condition or safety concerns L. Walking 10 feet on uneven surfaces 88-Not attempted due to medical condition or safety concerns M. 1 step (curb) 88-Not attempted due to medical condition or safety concerns N. 4 steps 88-Not attempted due to medical condition or safety concerns O. 12 steps 88-Not attempted due to medical condition or safety concerns P. Picking up object 88-Not attempted due to medical condition or safety concerns R. Wheel 50 feet with two turns 88-Not attempted due to medical condition or safety concerns S. Wheel 150 feet 88-Not attempted due to medical condition or safety concerns - Bladder and Bowel Bladder continence 5-No urine output Bowel continence 0-Always continent - Endurance Fair - Balance Fair - Safety Awareness Fair CURRENT [facility]. DEFICITS: Self-Care, Mobility, Endurance, Balance, and Safety Awareness SIGNATURE PANEL: (CONSUMER LENDING MANAGER)
[2019-06-11] MEDS: ENOXAPARIN 30 MG/0.3 ML SQ SCH (19:44)
[2019-06-11] MEDS: CYCLOBENZAPRINE 10 MG TAB PO PRN (19:44)
[2019-06-11] MEDS: MELATONIN 3 MG TABLET PO PRN (19:45)
[2019-06-11] MEDS: ALPRAZOLAM 0.25 MG TABLET PO PRN (19:45)
[2019-06-11] MEDS: INSULIN GLARGINE 100 UNITS/ML SQ SCH ×2 (19:48→21:00)
[2019-06-11] MEDS: DOCUSATE NA/SENNA CONC 1 TAB PO SCH (19:48)
[2019-06-12] MEDS: HYDROCODONE/APAP 7.5/325 MG TAB PO PRN ×3 (00:19→20:02)
[2019-06-12] MEDS: TRAMADOL HCL 50 MG TAB PO PRN ×2 (04:45→12:40)
[2019-06-12] MEDS: PANTOPRAZOLE 40MG TABLET PO SCH (06:42)
[2019-06-12 07:03] LABS: Hematocrit 26.3 % (39.6-49.0)
[2019-06-12] MEDS: INSULIN -REGULAR HUMAN 50 UNIT/0.5 ML ML SQ SCH ×4 (07:11→20:05)
[2019-06-12] MEDS: carvediloL 12.5 MG TAB PO SCH ×2 (07:49→20:01)
[2019-06-12] MEDS: HYDRALAZINE HCL 25 MG TABLET PO SCH ×3 (07:50→20:04)
[2019-06-12] MEDS: SEVELAMER CARBONATE 800 MG TABLET PO SCH ×3 (07:50→17:34)
[2019-06-12] MEDS: GABAPENTIN 300 MG CAP PO SCH ×2 (07:50→20:01)
[2019-06-12] MEDS: METOCLOPRAMIDE 5 MG TAB PO SCH (07:50)
[2019-06-12] MEDS: PROMOD 30 ML DOSE PO SCH ×2 (07:51→20:02)
--- NOTE | 2019-06-12 09:55 | P.RH.PN ---
Estimated Length of Stay: 13 Expected Discharge Date: 05/26/19 Discharge Disposition Plan: Home Family Support: Yes [facility] Goal: Mobility, Transfers, Self Care Vital Signs: Last Vital Signs Temp 97.2 F 06/12/19 08:43 Pulse 69 06/12/19 08:43 Resp 18 06/12/19 08:43 BP 148/70 H 06/12/19 08:43 Pulse Ox 99 06/12/19 08:43 Laboratory: Laboratory Last Values WBC 9.5 K/uL (4.3-10.9) D 06/11/19 05:38 RBC 2.80 M/uL (4.33-5.43) L 06/11/19 05:38 Hgb 8.7 g/dL (13.6-17.9) L 06/12/19 06:34 Hct 26.3 % (39.6-49.0) L 06/12/19 06:34 MCV 85.5 fL (80-100) 06/11/19 05:38 MCH 27.6 pg (27.0-35.0) 06/11/19 05:38 MCHC 32.3 g/dL (32.0-36.0) 06/11/19 05:38 RDW 17.5 % (12.1-15.2) H 06/11/19 05:38 Plt Count 121 K/uL (152-406) L 06/11/19 05:38 MPV 8.3 fL (7.6-11.3) 06/11/19 05:38 Neutrophils % 64.3 % (41.7-73.7) 06/11/19 05:38 Lymphocytes % 10.9 % (15.3-44.8) L 06/11/19 05:38 Monocytes % 9.5 % (3.3-12.3) 06/11/19 05:38 Eosinophils % 14.9 % (0-4.4) H 06/11/19 05:38 Basophils % 0.4 % (0-1.3) 06/11/19 05:38 Absolute Neutrophils 6.1 K/uL (1.8-8.0) 06/11/19 05:38 Segmented Neutrophils 79 % (40-80) 06/05/19 06:22 Band Neutrophils 1 % (0-1) 06/05/19 06:22 Absolute Lymphocytes 1.0 K/uL (0.7-4.9) 06/11/19 05:38 Lymphocytes 7 % (15-42) L 06/05/19 06:22 Monocytes 4 % (0-10) 06/05/19 06:22 Absolute Monocytes 0.9 K/uL (0.1-1.3) 06/11/19 05:38 Eosinophils 7 % (0-3) H 06/05/19 06:22 Absolute Eosinophils 1.4 K/uL (0-0.5) H 06/11/19 05:38 Basophils 2 % (0-1) H 06/05/19 06:22 Absolute Basophils 0.0 K/uL (0-0.5) 06/11/19 05:38 Anisocytosis 1+ 06/05/19 06:22 Microcytosis 1+ 06/05/19 06:22 Morphology Comment Noted (NOT SEEN) 06/05/19 06:22 Sodium 138 mmol/L (136-145) 06/11/19 05:42 Potassium 4.2 mmol/L (3.5-5.1) 06/11/19 05:42 Chloride 103 mmol/L (98-107) 06/11/19 05:42 Carbon Dioxide 28 mmol/L (21-32) 06/11/19 05:42 BUN 51 mg/dL (7-18) H 06/11/19 05:42 Creatinine 5.27 mg/dL (0.55-1.3) H* D 06/11/19 05:42 Estimated GFR 13 mL/min (=/>90) L 06/11/19 05:42 Glucose 72 mg/dL (74-106) L 06/11/19 05:42 POC Glucose 93 mg/dl (65-120) 06/12/19 07:56 Calcium 8.2 mg/dL (8.5-10.1) L 06/11/19 05:42 Magnesium 2.6 mg/dL (1.8-2.4) H 06/11/19 05:42 Albumin 2.6 g/dL (3.4-5.0) L 06/11/19 05:42 Prealbumin 18.9 mg/dL (20-40) L 06/11/19 05:42 Urine Color Yellow 06/05/19 01:45 Urine Appearance Cloudy 06/05/19 01:45 Urine pH 5.5 (5.0-7.0) 06/05/19 01:45 Ur Specific [place] 1.025 (1.005-1.030) 06/05/19 01:45 Urine Ketones Negative (NEG) 06/05/19 01:45 Urine Blood Negative (NEG) 06/05/19 01:45 Urine Nitrite Negative (NEG) 06/05/19 01:45 Urine Bilirubin Negative (NEG) 06/05/19 01:45 Urine Urobilinogen 0.2 mg/dL (0.2-1.0) 06/05/19 01:45 Ur Leukocyte Esterase Negative (NEG) 06/05/19 01:45 Urine RBC <5 /HPF (NONE SEEN) 06/05/19 01:45 Urine WBC 10-20 /HPF (<5) H 06/05/19 01:45 Ur Squamous Epith Cells 10-20 /HPF (NONE SEEN) H 06/05/19 01:45 Amorphous Sediment 2+ /HPF (NONE SEEN) H 06/05/19 01:45 Urine Bacteria >50 /HPF (NONE SEEN) H 06/05/19 01:45 Coarse Granular Casts 0-5 /LPF (NONE SEEN) 06/05/19 01:45 Urine Mucus 2+ /HPF (NONE SEEN) 06/05/19 01:45 Urine Culture Reflexed Not needed 06/05/19 01:45 Urine Glucose Negative (NEG) 06/05/19 01:45 Urine Total Protein 2+ (NEG) H 06/05/19 01:45 Gentamicin Trough 1.7 ug/mL (0-2.0) 06/11/19 15:26 Vancomycin Trough 14.6 ug/mL (5.0-20.0) 06/11/19 14:43 ABO/Rh B POSITIVE 06/11/19 15:24 Solid Phase Ab Screen Negative 06/11/19 15:24 Crossmatch See Detail 06/11/19 15:24 Weight: 168 lb Wound Present: Yes Closed Surgical Incision Present: Yes Negative Pressure Wound Therapy Present: No Physician Update: His Hgb was decreased to 7.7. After one unit of blood it improved to 8.7. He is doing well with ambulation with partial weight bearing over 250'. He has some difficulty wrapping his legs. He should be ready for discharge next week Saturday. Medical Issues: Patient is always continent with bladder and bowel Pain Issues: Patient is taking Tramadol 50mg Q8H PO PRN, [place] 7.5/325mg Q6H PO PRN, Tylenol 500mg Q4H PO PRN for pain Functional Improvement: Patient has met all short-term goals at this time, and is progressing well toward long-term goals. Patient follows PWB well, and presents w/ good overall safety awareness. Summary: Patient's care plan and fpc goals have been reviewed and revised as necessary. Please see the Rehabilitation Signature page for all necessary signatures.
[2019-06-12] MEDS ORDERED: MAGNESIUM CITRATE 300 ML BOT PO SCH (14:00)
[2019-06-12] MEDS: GENTAMICIN 80 MG/100 ML BAG 80 MG/100 ML BAG IV SCH (14:10)
[2019-06-12] MEDS: VANCOMYCIN 500 MG in NA CHLORIDE 0.9% 100 ML IVPB SCH (14:10)
--- NOTE | 2019-06-12 14:26 | P.PN ---
Subjective Date of Service: 06/12/19 Subjective: New changes Pt with ESRD, admitted for Knee taruma found to have patella fracture Today no overnight events participating in PT/OT Hd tomorrow h/h improving Physical exam general: Awake and alert , pt was agitated Neck; Supple, No elevated JVD hear: RRR, normal S1,2 no murmur or rub Chest: Basal rales Abdomen: Soft , Nt Extremities no eedema, Lt knee with cast ESRD on HD TTsat HD as per schedule renal dose meds Rt patela fracture S/P surgical intervention PT/OT Anemia of chronic disease cont SCARLETT MBD cont binders Physical Examination - Vital Signs Temperature: 97.2 F Blood Pressure: 148/70 Pulse: 69 Respirations: 15 Pulse Ox (%): 94 - Studies Laboratory Data (last 24 hrs) 06/12/19 06:34: Hgb 8.7 L, Hct 26.3 L
--- NOTE | 2019-06-12 15:35 | FAST ---
ENCOUNTER DATE AND TIME: 06/12/2019 08:00 (STILL CLEANER) NAME ODILIA PATEL DATE OF : 1955 DATE OF ADMISSION: 06/04/2019 18:59 (STILL CLEANER) PHONE: AGE: 63 N# [id number] GENDER: Male ENCOUNTER PHYSICIAN: Dr. Darrell Grimm M.D. ADMISSION DIAGNOSIS: - Medically Complex Conditions 17 - Terminal Care (17.6) ESRD. Right Patella Fracture. EATING: Not assessed/no information CODE: - ORAL HYGIENE: ORAL HYGIENE - STEP 1: Does the patient complete the activity by him/herself with no assistance (physical, verbal/nonverbal cueing, setup/clean-up)? Yes. 1. [id number] ADMISSION PERFORMANCE: Independent CODE: 06 TOILETING HYGIENE: Not assessed/no information CODE: - BATHING: SHOWER/BATHE SELF - STEP 1: Does the patient complete the activity by him/herself with no assistance (physical, verbal/nonverbal cueing, setup/clean-up)? No. SHOWER/BATHE SELF - STEP 2: Does the patient need only setup/clean-up assistance from one helper? No. SHOWER/BATHE SELF - STEP 3: Does the patient need only verbal/nonverbal cueing or touching/steadying/contact guard assistance fro m one helper? Yes. 1. [id number] ADMISSION PERFORMANCE: Supervision or touching assistance CODE: 04 DRESSING - UPPER BODY: DRESSING - UPPER BODY - STEP 1: Does the patient complete the activity by him/herself with no assistance (physical, verbal/nonverbal cueing, setup/clean-up)? Yes. 1. [id number] ADMISSION PERFORMANCE: Independent CODE: 06 DRESSING - LOWER BODY: DRESSING - LOWER BODY - STEP 1: Does the patient complete the activity by him/herself with no assistance (physical, verbal/nonverbal cueing, setup/clean-up)? No. DRESSING - LOWER BODY - STEP 2: Does the patient need only setup/clean-up assistance from one helper? No. DRESSING - LOWER BODY - STEP 3: Does the patient need only verbal/nonverbal cueing or touching/steadying/contact guard assistance fro m one helper? Yes. 1. [id number] ADMISSION PERFORMANCE: Supervision or touching assistance CODE: 04 PUTTING ON/TAKING OFF FOOTWEAR: FOOTWEAR - STEP 1: Does the patient complete the activity by him/herself with no assistance (physical, verbal/nonverbal cueing, setup/clean-up)? No. FOOTWEAR - STEP 2: Does the patient need only setup/clean-up assistance from one helper? No. FOOTWEAR - STEP 3: Does the patient need only verbal/nonverbal cueing or touching/steadying/contact guard assistance fro m one helper? Yes. 1. [id number] ADMISSION PERFORMANCE: Supervision or touching assistance CODE: 04 DOES THE PATIENT USE A WHEELCHAIR/SCOOTER? CODE: EXPR INDICATE THE TYPE OF WHEELCHAIR/SCOOTER USED: CODE: EXPR INDICATE THE TYPE OF WHEELCHAIR/SCOOTER USED: CODE: EXPR BLADDER AND BOWEL: CODE: EXPR CODE: EXPR SIGNATURE PANEL: The following modified sections: 1. [id number] Admission Performance, 1. EE7157b Admission Performance, 1. PB3572o Admission Performance, 1. TP8264w Admission Performance, 1. [id number] Admission Performance were [electronically] signed by ALEX Hicks on SatJun 12 2019 15:34:21 GMT-0600 (Central Standard Time)
--- NOTE | 2019-06-12 15:46 | FAST ---
ENCOUNTER DATE AND TIME: 06/11/2019 08:00 (ELECTRIC BLANKET PACKER) NAME ODILIA PATEL DATE OF : 1955 DATE OF ADMISSION: 06/04/2019 18:59 (ELECTRIC BLANKET PACKER) PHONE: AGE: 63 N# [id number] GENDER: Male ENCOUNTER PHYSICIAN: Dr. Darrell Grimm M.D. ADMISSION DIAGNOSIS: - Medically Complex Conditions 17 - Terminal Care (17.6) ESRD. Right Patella Fracture. ROLL LEFT AND RIGHT: ROLL LEFT AND RIGHT - STEP 1: Does the patient complete the activity by him/herself with no assistance (physical, verbal/nonverbal cueing, setup/clean-up)? Yes. 1. [id number] ADMISSION PERFORMANCE: Independent CODE: 06 SIT TO LYING: SIT TO LYING - STEP 1: Does the patient complete the activity by him/herself with no assistance (physical, verbal/nonverbal cueing, setup/clean-up)? Yes. 1. [id number] ADMISSION PERFORMANCE: Independent CODE: 06 LYING TO SITTING: LYING TO SITTING ON SIDE OF BED - STEP 1: Does the patient complete the activity by him/herself with no assistance (physical, verbal/nonverbal cueing, setup/clean-up)? Yes. 1. [id number] ADMISSION PERFORMANCE: Independent CODE: 06 SIT TO STAND: SIT TO STAND - STEP 1: Does the patient complete the activity by him/herself with no assistance (physical, verbal/nonverbal cueing, setup/clean-up)? Yes. 1. [id number] ADMISSION PERFORMANCE: Independent CODE: 06 TRANSFERS: BED, CHAIR: CHAIR/[id number] TRANSFER - STEP 1: Does the patient complete the activity by him/herself with no assistance (physical, verbal/nonverbal cueing, setup/clean-up)? Yes. 1. [id number] ADMISSION PERFORMANCE: Independent CODE: 06 TRANSFER TOILET: TOILET TRANSFER - STEP 1: Does the patient complete the activity by him/herself with no assistance (physical, verbal/nonverbal cueing, setup/clean-up)? Yes. 1. [id number] ADMISSION PERFORMANCE: Independent CODE: 06 TRANSFERS: CAR: Not attempted due to environmental limitations (e.g., lack of equipment, weather constraints) CODE: 10 WALK 10 FEET: WALK 10 FEET - STEP 1: Does the patient complete the activity by him/herself with no assistance (physical, verbal/nonverbal cueing, setup/clean-up)? No. WALK 10 FEET - STEP 2: Does the patient need only setup/clean-up assistance from one helper? Yes. 1. [id number] ADMISSION PERFORMANCE: Setup or clean-up assistance CODE: 05 WALK 50 FEET: WALK 50 FEET - STEP 1: Does the patient complete the activity by him/herself with no assistance (physical, verbal/nonverbal cueing, setup/clean-up)? No. WALK 50 FEET - STEP 2: Does the patient need only setup/clean-up assistance from one helper? Yes. 1. [id number] ADMISSION PERFORMANCE: Setup or clean-up assistance CODE: WALK 150 FEET: WALK 150 FEET - STEP 1: Does the patient complete the activity by him/herself with no assistance (physical, verbal/nonverbal cueing, setup/clean-up)? No. WALK 150 FEET - STEP 2: Does the patient need only setup/clean-up assistance from one helper? Yes. 1. [id number] ADMISSION PERFORMANCE: Setup or clean-up assistance CODE: WALK 10 FEET UNEVEN: Not attempted due to medical condition or safety concerns CODE: 88 1 STEP (CURB): 1 STEP CURB - STEP 1: Does the patient complete the activity by him/herself with no assistance (physical, verbal/nonverbal cueing, setup/clean-up)? No. 1 STEP CURB - STEP 2: Does the patient need only setup/clean-up assistance from one helper? Yes. 1. [id number] ADMISSION PERFORMANCE: Setup or clean-up assistance CODE: 4 STEPS: 4 STEPS - STEP 1: Does the patient complete the activity by him/herself with no assistance (physical, verbal/nonverbal cueing, setup/clean-up)? No. 4 STEPS - STEP 2: Does the patient need only setup/clean-up assistance from one helper? Yes. 1. [id number] ADMISSION PERFORMANCE: Setup or clean-up assistance CODE: 12 STEPS: 12 STEPS - STEP 1: Does the patient complete the activity by him/herself with no assistance (physical, verbal/nonverbal cueing, setup/clean-up)? No. 12 STEPS - STEP 2: Does the patient need only setup/clean-up assistance from one helper? Yes. 1. [id number] ADMISSION PERFORMANCE: Setup or clean-up assistance CODE: 05 PICKING UP OBJECT: Not attempted due to medical condition or safety concerns CODE: 88 DOES THE PATIENT USE A WHEELCHAIR/SCOOTER? Q1. DOES THE PATIENT USE A WHEELCHAIR/SCOOTER?: Yes CODE: 1 WHEEL 50 FEET WITH TWO TURNS: WHEEL 50 FEET WITH TWO TURNS - STEP 1: Does the patient complete the activity by him/herself with no assistance (physical, verbal/nonverbal cueing, setup/clean-up)? Yes. 1. [id number] ADMISSION PERFORMANCE: Independent CODE: 06 INDICATE THE TYPE OF WHEELCHAIR/SCOOTER USED: RR1. INDICATE THE TYPE OF WHEELCHAIR/SCOOTER USED.: Manual CODE: 1 WHEEL 150 FEET: WHEEL 150 FEET - STEP 1: Does the patient complete the activity by him/herself with no assistance (physical, verbal/nonverbal cueing, setup/clean-up)? Yes. 1. [id number] ADMISSION PERFORMANCE: Independent CODE: 06 INDICATE THE TYPE OF WHEELCHAIR/SCOOTER USED: SS1. INDICATE THE TYPE OF WHEELCHAIR/SCOOTER USED.: Manual CODE: 1 BLADDER AND BOWEL: CODE: EXPR CODE: EXPR SIGNATURE PANEL: The following modified sections: 1. [id number] Admission Performance, 1. [id number] Admission Performance, 1. [id number] Admission Performance, 1. HB5188T Admission Performance, 1. HD7626G Admission Performance, 1. RY4969L Admission Performance, 1. YA4178Z Admission Performance, 1. DK0790X Admission Performance , 1. HO5930A Admission Performance, 1. [id number] Admission Performance, 1. VG8733E Admission Performanc e, 1. MP0746S Admission Performance, Q1. Does the patient use a wheelchair/scooter?, 1. [id number] Admis marty Performance, RR1. Indicate the type of wheelchair/scooter used., 1. [id number] Admission Performanc e, Code, SS1. Indicate the type of wheelchair/scooter used. were [electronically] signed by Sterling allan PTA on SatJun 12 2019 15:45:28 GMT-0600 (Central Standard Time)
[2019-06-12] MEDS: ENOXAPARIN 30 MG/0.3 ML SQ SCH (17:34)
[2019-06-12] MEDS: MELATONIN 3 MG TABLET PO PRN (20:03)
[2019-06-12] MEDS: DOCUSATE NA/SENNA CONC 1 TAB PO SCH (20:04)
[2019-06-12] MEDS: INSULIN GLARGINE 100 UNITS/ML SQ SCH (20:05)
[2019-06-13] MEDS: TRAMADOL HCL 50 MG TAB PO PRN ×3 (01:10→18:29)
[2019-06-13] MEDS: ALPRAZOLAM 0.25 MG TABLET PO PRN ×2 (01:12→19:23)
[2019-06-13] MEDS: HYDROCODONE/APAP 7.5/325 MG TAB PO PRN ×3 (03:53→19:20)
[2019-06-13 05:25] VITALS: BMI 23.6
[2019-06-13] MEDS: PANTOPRAZOLE 40MG TABLET PO SCH (06:45)
[2019-06-13] MEDS: INSULIN -REGULAR HUMAN 50 UNIT/0.5 ML ML SQ SCH ×4 (07:30→21:00)
[2019-06-13] MEDS: PROMOD 30 ML DOSE PO SCH ×2 (08:00→19:23)
[2019-06-13] MEDS: carvediloL 12.5 MG TAB PO SCH ×2 (08:00→19:22)
[2019-06-13] MEDS: GABAPENTIN 300 MG CAP PO SCH ×2 (08:15→19:21)
[2019-06-13] MEDS: METOCLOPRAMIDE 5 MG TAB PO SCH (08:15)
[2019-06-13] MEDS: SEVELAMER CARBONATE 800 MG TABLET PO SCH ×4 (08:15→18:30)
[2019-06-13] MEDS: HYDRALAZINE HCL 25 MG TABLET PO SCH ×3 (08:17→21:15)
[2019-06-13] MEDS ORDERED: MAGNESIUM CITRATE 300 ML BOT PO SCH (17:00)
[2019-06-13] MEDS: ENOXAPARIN 30 MG/0.3 ML SQ SCH ×2 (17:00→18:30)
[2019-06-13] MEDS: VANCOMYCIN 500 MG in NA CHLORIDE 0.9% 100 ML IVPB SCH (18:30)
[2019-06-13] MEDS: DOCUSATE NA/SENNA CONC 1 TAB PO SCH (19:21)
[2019-06-13] MEDS: INSULIN GLARGINE 100 UNITS/ML SQ SCH (21:16)
[2019-06-14] MEDS: CYCLOBENZAPRINE 10 MG TAB PO PRN (00:13)
[2019-06-14] MEDS: MELATONIN 3 MG TABLET PO PRN (00:13)
[2019-06-14] MEDS: HYDROCODONE/APAP 7.5/325 MG TAB PO PRN ×3 (05:18→20:00)
[2019-06-14] MEDS: PANTOPRAZOLE 40MG TABLET PO SCH (06:31)
[2019-06-14] MEDS: INSULIN -REGULAR HUMAN 50 UNIT/0.5 ML ML SQ SCH ×4 (07:30→21:00)
[2019-06-14] MEDS ORDERED: MAGNESIUM HYDROXIDE 8% 30 ML PO PRN (07:48)
[2019-06-14] MEDS: PROMOD 30 ML DOSE PO SCH ×2 (08:00→20:00)
[2019-06-14] MEDS: TRAMADOL HCL 50 MG TAB PO PRN ×2 (08:42→17:13)
[2019-06-14] MEDS: GABAPENTIN 300 MG CAP PO SCH ×2 (08:43→20:01)
[2019-06-14] MEDS: carvediloL 12.5 MG TAB PO SCH ×2 (08:44→20:01)
[2019-06-14] MEDS: METOCLOPRAMIDE 5 MG TAB PO SCH (08:44)
[2019-06-14] MEDS: SEVELAMER CARBONATE 800 MG TABLET PO SCH ×3 (08:44→16:42)
[2019-06-14] MEDS: HYDRALAZINE HCL 25 MG TABLET PO SCH ×4 (08:45→21:11)
[2019-06-14] MEDS: ONDANSETRON 4 MG (ODT) TAB PO PRN (12:53)
[2019-06-14] MEDS: BISACODYL 10 MG RECTAL SUPP PR PRN (13:31)
[2019-06-14] MEDS: ENOXAPARIN 30 MG/0.3 ML SQ SCH (16:42)
[2019-06-14] MEDS: POLYETHYL GLY 3350 17 GM/DOSE PO PRN (17:14)
--- NOTE | 2019-06-14 18:16 | RAD REPORT ---
EXAM DESCRIPTION: RAD - Abdomen 1 View (KUB) - 06/14/2019 6:06 pm CLINICAL HISTORY: Constipation and vomiting COMPARISON: No comparisons FINDINGS: Bowel gas pattern is non-specific. No obstruction, free air or pneumatosis. No suspicious calcifications. No significant bony findings IMPRESSION: Negative KUB examination. No abnormal quantity of stool in the colon.
--- NOTE | 2019-06-14 19:31 | PN ---
Date of Progress Note: 06/14/2019 Subjective: Patient was admitted with fall, status post right knee surgery. Patient transfer to [facility]. Doing well. Status post dialysis yesterday. Tolerated the dialysis very well. We managed to r emove 2400. Physical Examination: Vital Signs: Blood pressure 124/56, pulse of 64. Chest: Clear to auscultation. Heart: S1, S2. Systolic murmur. Abdomen: Soft, nontender. Extremities: Cast on the right side. Laboratory Data: Sodium 138, potassium 4.2, bicarb 28, BUN 51, creatinine 5.2, calcium 8.2, magnesiu m 2.6. H and H 8.7/26.3. Current Medications: The patient on include gentamicin, vancomycin, Lovenox, Epogen, carvedilol 12.5 , hydralazine 50 t.i.d. gabapentin, Renvela, pantoprazole, metoclopramide. Assessment And Plan: 1.End-stage renal disease. We will maintain the patient on dialysis TTS and we will monitor. 2.Hypertension. I am going to go ahead and decrease hydralazine to b.i.d. to have better blood pres sure during the dialysis. 3.Anemia of chronic kidney disease, stable, status post transfusion. Continue SCARLETT. 4.Knee fracture secondary to fall. Follow up with the primary. ROMAN Voice ID: [id number] Report ID: [id number]
[2019-06-14] MEDS: DOCUSATE NA/SENNA CONC 1 TAB PO SCH (21:10)
[2019-06-14] MEDS: INSULIN GLARGINE 100 UNITS/ML SQ SCH (21:12)
[2019-06-15] MEDS: CYCLOBENZAPRINE 10 MG TAB PO PRN (00:10)
[2019-06-15] MEDS: MELATONIN 3 MG TABLET PO PRN ×2 (00:10→21:07)
[2019-06-15] MEDS: PANTOPRAZOLE 40MG TABLET PO SCH (06:59)
[2019-06-15] MEDS: INSULIN -REGULAR HUMAN 50 UNIT/0.5 ML ML SQ SCH ×4 (07:30→21:00)
[2019-06-15] MEDS: PROMOD 30 ML DOSE PO SCH ×2 (08:00→20:00)
[2019-06-15] MEDS: GABAPENTIN 300 MG CAP PO SCH ×2 (09:09→20:01)
[2019-06-15] MEDS: SEVELAMER CARBONATE 800 MG TABLET PO SCH ×3 (09:10→17:06)
[2019-06-15] MEDS: carvediloL 12.5 MG TAB PO SCH ×2 (09:10→20:01)
[2019-06-15] MEDS: METOCLOPRAMIDE 5 MG TAB PO SCH (09:10)
[2019-06-15] MEDS: TRAMADOL HCL 50 MG TAB PO PRN ×2 (09:10→17:19)
[2019-06-15] MEDS: HYDRALAZINE HCL 25 MG TABLET PO SCH ×3 (09:10→21:08)
[2019-06-15] MEDS: HYDROCODONE/APAP 7.5/325 MG TAB PO PRN ×2 (12:29→20:00)
--- NOTE | 2019-06-15 14:43 | FAST ---
ENCOUNTER DATE AND TIME: 06/15/2019 08:00 (NASCAR RACER) NAME ODILIA PATEL DATE OF : 1955 DATE OF ADMISSION: 06/04/2019 18:59 (NASCAR RACER) PHONE: AGE: 63 N# [id number] GENDER: Male ENCOUNTER PHYSICIAN: Dr. Darrell Grimm M.D. ADMISSION DIAGNOSIS: - Medically Complex Conditions 17 - Terminal Care (17.6) ESRD. Right Patella Fracture. EATING: Not assessed/no information CODE: - ORAL HYGIENE: ORAL HYGIENE - STEP 1: Does the patient complete the activity by him/herself with no assistance (physical, verbal/nonverbal cueing, setup/clean-up)? Yes. 1. [id number] ADMISSION PERFORMANCE: Independent CODE: 06 TOILETING HYGIENE: Not assessed/no information CODE: - BATHING: SHOWER/BATHE SELF - STEP 1: Does the patient complete the activity by him/herself with no assistance (physical, verbal/nonverbal cueing, setup/clean-up)? No. SHOWER/BATHE SELF - STEP 2: Does the patient need only setup/clean-up assistance from one helper? No. SHOWER/BATHE SELF - STEP 3: Does the patient need only verbal/nonverbal cueing or touching/steadying/contact guard assistance fro m one helper? Yes. 1. [id number] ADMISSION PERFORMANCE: Supervision or touching assistance CODE: 04 DRESSING - UPPER BODY: DRESSING - UPPER BODY - STEP 1: Does the patient complete the activity by him/herself with no assistance (physical, verbal/nonverbal cueing, setup/clean-up)? Yes. 1. [id number] ADMISSION PERFORMANCE: Independent CODE: 06 DRESSING - LOWER BODY: DRESSING - LOWER BODY - STEP 1: Does the patient complete the activity by him/herself with no assistance (physical, verbal/nonverbal cueing, setup/clean-up)? No. DRESSING - LOWER BODY - STEP 2: Does the patient need only setup/clean-up assistance from one helper? No. DRESSING - LOWER BODY - STEP 3: Does the patient need only verbal/nonverbal cueing or touching/steadying/contact guard assistance fro m one helper? Yes. 1. [id number] ADMISSION PERFORMANCE: Supervision or touching assistance CODE: 04 PUTTING ON/TAKING OFF FOOTWEAR: FOOTWEAR - STEP 1: Does the patient complete the activity by him/herself with no assistance (physical, verbal/nonverbal cueing, setup/clean-up)? No. FOOTWEAR - STEP 2: Does the patient need only setup/clean-up assistance from one helper? No. FOOTWEAR - STEP 3: Does the patient need only verbal/nonverbal cueing or touching/steadying/contact guard assistance fro m one helper? Yes. 1. [id number] ADMISSION PERFORMANCE: Supervision or touching assistance CODE: 04 DOES THE PATIENT USE A WHEELCHAIR/SCOOTER? CODE: EXPR INDICATE THE TYPE OF WHEELCHAIR/SCOOTER USED: CODE: EXPR INDICATE THE TYPE OF WHEELCHAIR/SCOOTER USED: CODE: EXPR BLADDER AND BOWEL: CODE: EXPR CODE: EXPR SIGNATURE PANEL: The following modified sections: 1. [id number] Admission Performance, 1. EP7376w Admission Performance, 1. DP8465i Admission Performance, 1. VH6919l Admission Performance, 1. OU5223v Admission Performance were [electronically] signed by ALEX Hicks on SatJun 15 2019 14:42:52 GMT-0600 (Central Standard Time)
--- NOTE | 2019-06-15 14:44 | CON ---
Date of Consultation: 06/09/2019 Chief Complaint: Auditory hallucination and Paranoia. History Of Present Illness: Mr. Neil Cervantes is a 63-year-old black male, single, with no children. Patient is seen in his room at the request of treatment team on account or recent agitation and history of delusion. On interview, patient states that he first started having auditory hallucination at age 16, states over the years the voices has never gone way but vary in intensity and frequency. He states since his surgery the voices has become more intense and frequent telling him "they are going to get him", voices are not commanding. States he also feels there are people monitoring him and waiting for the opportunity to harm him. Patient states the last time he felt this way was when he was heavily abusing cocaine and heroin and when he was in in the federal detention for 22 years on drug trafficking charges. He states currently he only smokes marijuana, last smoked a month ago. Patient states he also drinks al;cholic beverages occasionally, no symptoms and signs of dependency. He denies symptoms of bipolar disorder, reports feeling dysphoric but no suicidal nor homicidal thoughts. Denies extreme anxiety and no history of panic attacks. No history of previous psychiatric inpatient hospitalization. No history of fluctuation in patient level of consciousness and no waxing and waning of cognitive functioning. Physical Examination: Vital Signs: Blood pressure 136/65, heart rate is 72, respiratory rate is 17, temperature 97.6. Mental Status Examination: Patient is a well nourished appropriately dressed black male, fairly groomed with fair hygiene. Patient is alert, oriented x3. cooperative with interview. No stereotypic movement noted. Made good eye contact. Speech is slightly slurred, low vol with normal rate. Patient is not in any obvious acute distress and ambulate with the aid of a wheelchair. Patient is cooperative with interview. Patient is alert and oriented to person, place and time. He is cooperative with interview. No stereotypic mannerism observed. Memory/concentration is fair. Mood: dysphoric, Affect is mood congruent. TP: Linear and circumstantial TC:Exhibit persecutory delusion and auditory hallucination. Suicidal and homicidal ideation is negative. Fund of Knowledge is average and speech is fair Diagnoses: 1. Schizophrenia, chronic. 2. Schizoaffective disorder, depress type. 3. Cannabis use disorder severe 4. Cocaine use disorder severe in remission. 5. Opioid use disorder severe in remission Recommendations: 1. Recommend starting Risperidone 1 mg po daily for psychotic symptoms 2. Recommend Sertraline 50 mg Po daily for depressive symptoms 3. Recommend patient follow with psychiatry 2 weeks post discharge. 4. Thank you for the Consult JUSTINO Voice ID: [id number] Report ID: [id number] MTDD
--- NOTE | 2019-06-15 14:58 | FAST ---
SHIFT START DATE/TIME: 06/15/2019 07:00 (HEALTH NAVIGATOR) SHIFT END DATE/TIME: 06/15/2019 19:00 (HEALTH NAVIGATOR) NAME ODILIA PATEL DATE OF : 1955 DATE OF ADMISSION: 06/04/2019 18:59 (HEALTH NAVIGATOR) PHONE: AGE: 63 N# [id number] GENDER: Male ENCOUNTER PHYSICIAN: Dr. Darrell Grimm M.D. ADMISSION DIAGNOSIS: - Medically Complex Conditions 17 - Terminal Care (17.6) ESRD. Right Patella Fracture. EATING: EATING - STEP 1: Does the patient complete the activity by him/herself with no assistance (physical, verbal/nonverbal cueing, setup/clean-up)? No. EATING - STEP 2: Does the patient need only setup/clean-up assistance from one helper? Yes. 1. [id number] ADMISSION PERFORMANCE: Setup or clean-up assistance CODE: 05 ORAL HYGIENE: Patient refused ORAL HYGIENE - STEP 1: Does the patient complete the activity by him/herself with no assistance (physical, verbal/nonverbal cueing, setup/clean-up)? Yes. 1. [id number] ADMISSION PERFORMANCE: Independent CODE: 06 TOILETING HYGIENE: TOILETING HYGIENE - STEP 1: Does the patient complete the activity by him/herself with no assistance (physical, verbal/nonverbal cueing, setup/clean-up)? No. TOILETING HYGIENE - STEP 2: Does the patient need only setup/clean-up assistance from one helper? Yes. 1. [id number] ADMISSION PERFORMANCE: Setup or clean-up assistance CODE: 05 BATHING: Not assessed/no information CODE: - DRESSING - UPPER BODY: DRESSING - UPPER BODY - STEP 1: Does the patient complete the activity by him/herself with no assistance (physical, verbal/nonverbal cueing, setup/clean-up)? No. DRESSING - UPPER BODY - STEP 2: Does the patient need only setup/clean-up assistance from one helper? Yes. 1. [id number] ADMISSION PERFORMANCE: Setup or clean-up assistance CODE: 05 DRESSING - LOWER BODY: DRESSING - LOWER BODY - STEP 1: Does the patient complete the activity by him/herself with no assistance (physical, verbal/nonverbal cueing, setup/clean-up)? No. DRESSING - LOWER BODY - STEP 2: Does the patient need only setup/clean-up assistance from one helper? Yes. 1. [id number] ADMISSION PERFORMANCE: Setup or clean-up assistance CODE: 05 PUTTING ON/TAKING OFF FOOTWEAR: FOOTWEAR - STEP 1: Does the patient complete the activity by him/herself with no assistance (physical, verbal/nonverbal cueing, setup/clean-up)? No. FOOTWEAR - STEP 2: Does the patient need only setup/clean-up assistance from one helper? Yes. 1. [id number] ADMISSION PERFORMANCE: Setup or clean-up assistance CODE: 05 ROLL LEFT AND RIGHT: ROLL LEFT AND RIGHT - STEP 1: Does the patient complete the activity by him/herself with no assistance (physical, verbal/nonverbal cueing, setup/clean-up)? No. ROLL LEFT AND RIGHT - STEP 2: Does the patient need only setup/clean-up assistance from one helper? Yes. 1. [id number] ADMISSION PERFORMANCE: Setup or clean-up assistance CODE: 05 SIT TO LYING: SIT TO LYING - STEP 1: Does the patient complete the activity by him/herself with no assistance (physical, verbal/nonverbal cueing, setup/clean-up)? No. SIT TO LYING - STEP 2: Does the patient need only setup/clean-up assistance from one helper? Yes. 1. [id number] ADMISSION PERFORMANCE: Setup or clean-up assistance CODE: 05 LYING TO SITTING: LYING TO SITTING ON SIDE OF BED - STEP 1: Does the patient complete the activity by him/herself with no assistance (physical, verbal/nonverbal cueing, setup/clean-up)? No. LYING TO SITTING ON SIDE OF BED - STEP 2: Does the patient need only setup/clean-up assistance from one helper? Yes. 1. [id number] ADMISSION PERFORMANCE: Setup or clean-up assistance CODE: 05 SIT TO STAND: SIT TO STAND - STEP 1: Does the patient complete the activity by him/herself with no assistance (physical, verbal/nonverbal cueing, setup/clean-up)? No. SIT TO STAND - STEP 2: Does the patient need only setup/clean-up assistance from one helper? Yes. 1. [id number] ADMISSION PERFORMANCE: Setup or clean-up assistance CODE: 05 TRANSFERS: BED, CHAIR: CHAIR/[id number] TRANSFER - STEP 1: Does the patient complete the activity by him/herself with no assistance (physical, verbal/nonverbal cueing, setup/clean-up)? No. CHAIR/[id number] TRANSFER - STEP 2: Does the patient need only setup/clean-up assistance from one helper? Yes. 1. [id number] ADMISSION PERFORMANCE: Setup or clean-up assistance CODE: 05 TRANSFER TOILET: TOILET TRANSFER - STEP 1: Does the patient complete the activity by him/herself with no assistance (physical, verbal/nonverbal cueing, setup/clean-up)? No. TOILET TRANSFER - STEP 2: Does the patient need only setup/clean-up assistance from one helper? Yes. 1. [id number] ADMISSION PERFORMANCE: Setup or clean-up assistance CODE: 05 TRANSFERS: CAR: Not assessed/no information CODE: - WALK 10 FEET: Not assessed/no information CODE: - 1 STEP (CURB): Not assessed/no information CODE: - PICKING UP OBJECT: Not assessed/no information CODE: - DOES THE PATIENT USE A WHEELCHAIR/SCOOTER? Q1. DOES THE PATIENT USE A WHEELCHAIR/SCOOTER?: Yes CODE: 1 WHEEL 50 FEET WITH TWO TURNS: WHEEL 50 FEET WITH TWO TURNS - STEP 1: Does the patient complete the activity by him/herself with no assistance (physical, verbal/nonverbal cueing, setup/clean-up)? No. WHEEL 50 FEET WITH TWO TURNS - STEP 2: Does the patient need only setup/clean-up assistance from one helper? Yes. 1. [id number] ADMISSION PERFORMANCE: Setup or clean-up assistance CODE: 05 INDICATE THE TYPE OF WHEELCHAIR/SCOOTER USED: RR1. INDICATE THE TYPE OF WHEELCHAIR/SCOOTER USED.: Manual CODE: 1 WHEEL 150 FEET: WHEEL 150 FEET - STEP 1: Does the patient complete the activity by him/herself with no assistance (physical, verbal/nonverbal cueing, setup/clean-up)? No. WHEEL 150 FEET - STEP 2: Does the patient need only setup/clean-up assistance from one helper? Yes. 1. [id number] ADMISSION PERFORMANCE: Setup or clean-up assistance CODE: 05 INDICATE THE TYPE OF WHEELCHAIR/SCOOTER USED: SS1. INDICATE THE TYPE OF WHEELCHAIR/SCOOTER USED.: Manual CODE: 1 BLADDER AND BOWEL: H350. BLADDER CONTINENCE (3-DAY ASSESSMENT PERIOD): Always continent (no documented incontinence) CODE: 0 H400. BOWEL CONTINENCE (3-DAY ASSESSMENT PERIOD): Always continent CODE: 0 SIGNATURE PANEL: The following modified sections: 1. [id number] Admission Performance, 1. CT2266Y Admission Performance, 1. DR9627O Admission Performance, 1. [id number] Admission Performance, 1. NM6011Z Admission Performance, 1. DC5040k Admission Performance, 1. LN9657h Admission Performance, 1. UO6509s Admission Performance , 1. RW4978N Admission Performance, 1. UT9246O Admission Performance, 1. LP3519U Admission Performanc e, 1. AQ8308N Admission Performance, 1. SM4181X Admission Performance, 1. ZL7870E Admission Performan ce, Q1. Does the patient use a wheelchair/scooter?, 1. ZK5520R Admission Performance, RR1. Indicate t he type of wheelchair/scooter used., 1. YW9650V Admission Performance, Code, SS1. Indicate the type o f wheelchair/scooter used., H350. Bladder Continence (3-day assessment period), H400. Bowel Continenc e (3-day assessment period) were [electronically] signed by Sammy CanelaNYamilet on SatJun 15 2019 1 4:57:59 GMT-0600 (Central Standard Time)
[2019-06-15] MEDS: ENOXAPARIN 30 MG/0.3 ML SQ SCH (16:36)
[2019-06-15] MEDS ORDERED: ALBUTEROL 2.5 MG/3 ML NEB SOL NEB PRN (17:00)
--- NOTE | 2019-06-15 18:12 | R.PN ---
ENCOUNTER DATE AND TIME: 06/15/2019 18:10 (MEDIA ANALYTICS MANAGER) NAME BILLY PATEL DATE OF : 1955 DATE OF ADMISSION: 06/04/2019 18:59 (MEDIA ANALYTICS MANAGER) ESRDRight Patella FractureCHIEF COMPLAINT: End stage renal disease and debility. SUBJECTIVE: Pt denied any depression. Pt denied any Shortness of Breath. Improved glucose levels, ranged 74 to 104. Will change glucose monitoring to bid. Ambulated 250' with standby assistance using a rolling walker. Up and down 15 steps with contact guar d assistance. Gentamicin level 1.4, Vancomycin 9.0. Hgb improved to 8.7 from 7.7 after one unit of PRBCs with dialysis. VITAL SIGNS Temperature: 97.9 F SBP/DBP: 143/70 Pulse: 66 Resp: 16 MEDICATION ALLERGIES: Corticosteroids ENVIRONMENTAL ALLERGIES: None Known - Substance Allergies None Known - Other Allergies None Known NURSING: - Shower allowing shower - Lab Results blood Sugar Check ACHS ACTIVITIES OOB only with supervision THERAPIES: - Dietary and Nutrition Adequate Nutrition. Nutritional Education. Nutritional Supplements. PHYSICAL EXAM - Gen Alert and awake Lying in bed No apparent distress Oriented to: person, time, and place - Skin No skin breakdown. Normacephalic - Eyes No abnormalities - ENMT No abnormalities - Neck No abnormalities - CVS RRR - Chest Clear - Abd + bowel sounds - GI Non distended Deferred - No abnormalities - Ext His right leg is in a brace with hemostasis at his surgical site. - MSK 4+/5 weakness in right lower extremity - Neuro 4/5 strength right lower extremity. - Psych No abnormalities ASSESSMENT: Pt. is a 63 yo Right-handed black male.On 05/27/2019 he was admitted to [facility] with diagnosis ESRD.His impairment category is Medically Complex Conditions 17 - Terminal Care ( 17.6).Pre-morbidly, Pt. was independent/mod-I in Locomotion, Safety Awareness, Balance, Social Cognit ion, Transfers Control, Sphincter Control, Self-Care, Communication, and Endurance; and he had good L ocomotion, Balance, Safety Awareness, Social Cognition, Transfers Control, Sphincter Control, Self-Ca re, Communication, and Endurance.Currently, he has deficits of Locomotion, Balance, Safety Awareness, Social Cognition, Transfers Control, Self-Care, and Endurance.Pt. is now referred to [facility] for acute in-patient rehabilitation in order to maximize patient's functional inde pendence in activities of daily living, strength, ROM, and mobility.- Rehab Goal Patient has realistic goal of being discharged at assistance level 6-Luz Elena to reside at Home with Fam juvenal/Relatives. MDM/PLAN: - Physical Therapy Gait dysfunction - to improve, our physical therapists will perform initial evaluation of pt's statu s upon admission and devise an individualized program for Gait Training, and Wheel Chair mobility Inability to transfer - to improve, our physical therapists will perform initial evaluation of pt's status upon admission and devise an individualized program for Bed mobility Need for home safety evaluation - to improve, our physical therapists will perform initial evaluatio n of pt's status upon admission and devise an individualized program for Home Evaluation Need in caregiver upon discharge - to improve, our physical therapists will perform initial evaluati on of pt's status upon admission and devise an individualized program for Caregiver Training New precaution - to improve, our physical therapists will perform initial evaluation of pt's status upon admission and devise an individualized program for Patient precaution education Poor balance - to improve, our physical therapists will perform initial evaluation of pt's status up on admission and devise an individualized program for Balance Training Poor endurance - to improve, our physical therapists will perform initial evaluation of pt's status upon admission and devise an individualized program for Endurance Training Weakness - to improve, our physical therapists will perform initial evaluation of pt's status upon a dmission and devise an individualized program for Aquatic Therapy, Neuromuscular Reeducation, and Str engthening Achieving independence - to improve, our physical therapists will perform initial evaluation of pt's status upon admission and devise an individualized program for Community Reintegration Activities - Occupational Therapy ADL deficits - to improve, our occupation therapists will perform initial evaluation of pt's status upon admission and devise an individualized program for Bathing, Bed mobility, Community Reintegratio n, Cooking, Dressing, Eating, Fine Motor Skills, Grooming, Homemaking, Kitchen Mobility, Laundry, Pat ient Education, Safety Awareness, Splinting - Positioning, Transfers(Toilet, Tub, Shower), and Wheel Chair Management Cognitive deficits - to improve, our occupation therapists will perform initial evaluation of pt's s tatus upon admission and devise an individualized program for Cognition - orientation Need for career resource technician - to improve, our occupation therapists will perform initial evaluation of pt's status upon admission and devise an individualized program for Caregiver Training Weakness - to improve, our occupation therapists will perform initial evaluation of pt's status upon admission and devise an individualized program for Aquatic Therapy, Balance, Endurance, UE ROM, and UE strengthening - Other See attached MAR (Medication Administration Record) See attached MAR (Medication Administration Record) Billy Patel.pdf - Diet Type Continue Regular - Diet - Liquid Texture Continue Regular - Tube Feed Continue N/A - Lab Results blood Sugar Check ACHS - Diet - Solid Texture Continue Regular - Shower allowing shower FUNCTIONAL STATUS: UPDATED AT WEEKLY TEAM CONFERENCE - Bladder Same accident frequency: 7-Ind - No accidents in the past 7 days - Bowel Same accident frequency: 7-Ind - No accidents in the past 7 days - Walking Same score based on distance walked: 0(N/A) Same score based on distance walked: 1(<=50ft) - Wheelchair Same score based on distance traveled: 0(N/A) FUNCTIONAL STATUS: - Self-Care A. Eating Ind B. Grooming Ind C. Bathing Ind D. Dressing - Upper Ind E. Dressing - Lower Gayle F. Toileting sup - Sphincter Control G. Bladder control Luz Elena H. Bowel control Luz Elena - Transfers Control I. Bed/Chair/Wheelchair Gayle J. Toilet Gayle K. Tub/Shower Gayle - Locomotion L. Walk/Wheelchair (B) sup M. Stairs Ind - Communication N. Comprehension (B) Luz Elena O. Expression (B) Luz Elena - Social Cognition P. Social Interaction Luz Elena Q. Problem Solving sup R. Memory sup - Endurance Fair - Balance Fair - Safety Awareness Fair QI SCORES: - Self-Care A. Eating 05-Setup or clean-up assistance B. Oral hygiene 05-Setup or clean-up assistance C. Toileting hygiene 04-Supervision or touching assistance E. Shower/bathe self 04-Supervision or touching assistance F. Upper body dressing 04-Supervision or touching assistance G. Lower body dressing 03-Partial/moderate assistance H. Putting on/taking off footwear 03-Partial/moderate assistance - Mobility A. Roll left and right 04-Supervision or touching assistance B. Sit to lying 04-Supervision or touching assistance C. Lying to sitting on side of bed 04-Supervision or touching assistance D. Sit to stand 04-Supervision or touching assistance E. Chair/bld-rk-klevf transfer 03-Partial/moderate assistance F. Toilet transfer 03-Partial/moderate assistance G. Car transfer 10-Not attempted due to environmental limitations I. Walk 10 feet 03-Partial/moderate assistance J. Walk 50 feet with two turns 88-Not attempted due to medical condition or safety concerns K. Walk 150 feet 88-Not attempted due to medical condition or safety concerns L. Walking 10 feet on uneven surfaces 88-Not attempted due to medical condition or safety concerns M. 1 step (curb) 88-Not attempted due to medical condition or safety concerns N. 4 steps 88-Not attempted due to medical condition or safety concerns O. 12 steps 88-Not attempted due to medical condition or safety concerns P. Picking up object 88-Not attempted due to medical condition or safety concerns R. Wheel 50 feet with two turns 88-Not attempted due to medical condition or safety concerns S. Wheel 150 feet 88-Not attempted due to medical condition or safety concerns - Bladder and Bowel Bladder continence 5-No urine output Bowel continence 0-Always continent - Endurance Fair - Balance Fair - Safety Awareness Fair [facility]IC[facility]: Self-Care, Mobility, Endurance, Balance, and Safety Awareness SIGNATURE PANEL: (MEDIA ANALYTICS MANAGER)
[2019-06-15] MEDS: DOCUSATE NA/SENNA CONC 1 TAB PO SCH (21:08)
[2019-06-16] MEDS: TRAMADOL HCL 50 MG TAB PO PRN ×3 (03:27→23:07)
--- NOTE | 2019-06-16 03:46 | PN ---
Date of Progress Note: 06/15/2019 Chief Complaint: End-stage renal disease, on dialysis. Patient is undergoing dialysis 3 times per week on Saturday, , Saturday. Patient has legs edema secondary to lymphedema. He underwent right knee surgery and is undergoing physical therapy. Review of Systems: Denies PND, orthopnea. Physical Examination: Lungs: Few crackles at bases. Heart: S1, S2. Abdomen: Soft, benign. Extremities: Slight edema. Laboratory Data: Sodium 138, potassium 4.2, bicarbonate 28, BUN 51, creatinine 5.2, calcium 8.2. Hemoglobin 8.7, hematocrit 26.7. Impression And Plan: 1. End-stage renal disease. Dialysis will be done tomorrow. Monitor renal function and continue low-sodium diet and p.o. fluid restriction. 2. Hypertension. Continue blood pressure medication. Hydralazine was adjusted. 3. Anemia due to chronic kidney disease. Continue SCARLETT. 4. Deconditioning. Physical therapy per primary team. ANSLEY/ZULEIMA Voice ID: [id number] Report ID: [id number] KATIE
[2019-06-16] MEDS: BISACODYL 10 MG RECTAL SUPP PR PRN (04:10)
[2019-06-16] MEDS: PANTOPRAZOLE 40MG TABLET PO SCH (06:27)
[2019-06-16] MEDS: INSULIN -REGULAR HUMAN 50 UNIT/0.5 ML ML SQ SCH ×4 (07:30→21:00)
[2019-06-16] MEDS: PROMOD 30 ML DOSE PO SCH ×2 (08:00→20:00)
[2019-06-16] MEDS: carvediloL 12.5 MG TAB PO SCH ×2 (08:23→22:09)
[2019-06-16] MEDS: SEVELAMER CARBONATE 800 MG TABLET PO SCH ×3 (08:23→16:45)
[2019-06-16] MEDS: METOCLOPRAMIDE 5 MG TAB PO SCH (08:23)
[2019-06-16] MEDS: HYDRALAZINE HCL 25 MG TABLET PO SCH ×3 (08:23→22:09)
[2019-06-16] MEDS: GABAPENTIN 300 MG CAP PO SCH ×2 (08:23→22:09)
[2019-06-16] MEDS: HYDROCODONE/APAP 7.5/325 MG TAB PO PRN ×3 (08:24→22:10)
[2019-06-16] MEDS: LACTULOSE 20 GM/30 ML UCUP PO SCH (08:24)
[2019-06-16] MEDS: ENOXAPARIN 30 MG/0.3 ML SQ SCH (16:45)
--- NOTE | 2019-06-16 18:25 | R.PN ---
ENCOUNTER DATE AND TIME: 06/16/2019 18:22 (CIVIL DIVISION COMMANDER DEPUTY SHERIFF) NAME BILLY PATEL DATE OF : 1955 DATE OF ADMISSION: 06/04/2019 18:59 (CIVIL DIVISION COMMANDER DEPUTY SHERIFF) ESRDRight Patella FractureCHIEF COMPLAINT: End stage renal disease and debility. SUBJECTIVE: Pt denied any depression. Pt denied any Shortness of Breath. Improved glucose levels, ranged 85 to 134. Ambulated 1000' with independence using a rolling walker. Up and down 15 steps with contact guard ass istance. Gentamicin level 1.4, Vancomycin 9.0. Hgb improved to 8.7 from 7.7 after one unit of PRBCs with dialysis. VITAL SIGNS Temperature: 97.9 F SBP/DBP: 164/76 Pulse: 63 Resp: 16 MEDICATION ALLERGIES: Corticosteroids ENVIRONMENTAL ALLERGIES: None Known - Substance Allergies None Known - Other Allergies None Known NURSING: - Shower allowing shower - Lab Results blood Sugar Check ACHS ACTIVITIES OOB only with supervision THERAPIES: - Dietary and Nutrition Adequate Nutrition. Nutritional Education. Nutritional Supplements. PHYSICAL EXAM - Gen Alert and awake Lying in bed No apparent distress Oriented to: person, time, and place - Skin No skin breakdown. Normacephalic - Eyes No abnormalities - ENMT No abnormalities - Neck No abnormalities - CVS RRR - Chest Clear - Abd + bowel sounds - GI Non distended Deferred - No abnormalities - Ext His right leg is in a brace with hemostasis at his surgical site. - MSK 4+/5 weakness in right lower extremity - Neuro 4/5 strength right lower extremity. - Psych No abnormalities ASSESSMENT: Pt. is a 63 yo Right-handed black male.On 05/27/2019 he was admitted to [facility] with diagnosis ESRD.His impairment category is Medically Complex Conditions 17 - Terminal Care ( 17.6).Pre-morbidly, Pt. was independent/mod-I in Locomotion, Safety Awareness, Balance, Social Cognit ion, Transfers Control, Sphincter Control, Self-Care, Communication, and Endurance; and he had good L ocomotion, Balance, Safety Awareness, Social Cognition, Transfers Control, Sphincter Control, Self-Ca re, Communication, and Endurance.Currently, he has deficits of Locomotion, Balance, Safety Awareness, Social Cognition, Transfers Control, Self-Care, and Endurance.Pt. is now referred to [facility] for acute in-patient rehabilitation in order to maximize patient's functional inde pendence in activities of daily living, strength, ROM, and mobility.- Rehab Goal Patient has realistic goal of being discharged at assistance level 6-Luz Elena to reside at Home with Fam juvenal/Relatives. MDM/PLAN: - Physical Therapy Gait dysfunction - to improve, our physical therapists will perform initial evaluation of pt's statu s upon admission and devise an individualized program for Gait Training, and Wheel Chair mobility Inability to transfer - to improve, our physical therapists will perform initial evaluation of pt's status upon admission and devise an individualized program for Bed mobility Need for home safety evaluation - to improve, our physical therapists will perform initial evaluatio n of pt's status upon admission and devise an individualized program for Home Evaluation Need in caregiver upon discharge - to improve, our physical therapists will perform initial evaluati on of pt's status upon admission and devise an individualized program for Caregiver Training New precaution - to improve, our physical therapists will perform initial evaluation of pt's status upon admission and devise an individualized program for Patient precaution education Poor balance - to improve, our physical therapists will perform initial evaluation of pt's status up on admission and devise an individualized program for Balance Training Poor endurance - to improve, our physical therapists will perform initial evaluation of pt's status upon admission and devise an individualized program for Endurance Training Weakness - to improve, our physical therapists will perform initial evaluation of pt's status upon a dmission and devise an individualized program for Aquatic Therapy, Neuromuscular Reeducation, and Str engthening Achieving independence - to improve, our physical therapists will perform initial evaluation of pt's status upon admission and devise an individualized program for Community Reintegration Activities - Occupational Therapy ADL deficits - to improve, our occupation therapists will perform initial evaluation of pt's status upon admission and devise an individualized program for Bathing, Bed mobility, Community Reintegratio n, Cooking, Dressing, Eating, Fine Motor Skills, Grooming, Homemaking, Kitchen Mobility, Laundry, Pat ient Education, Safety Awareness, Splinting - Positioning, Transfers(Toilet, Tub, Shower), and Wheel Chair Management Cognitive deficits - to improve, our occupation therapists will perform initial evaluation of pt's s tatus upon admission and devise an individualized program for Cognition - orientation Need for specialist wound care - to improve, our occupation therapists will perform initial evaluation of pt's status upon admission and devise an individualized program for Caregiver Training Weakness - to improve, our occupation therapists will perform initial evaluation of pt's status upon admission and devise an individualized program for Aquatic Therapy, Balance, Endurance, UE ROM, and UE strengthening - Other See attached MAR (Medication Administration Record) See attached MAR (Medication Administration Record) Billy Patel.pdf - Diet Type Continue Regular - Diet - Liquid Texture Continue Regular - Tube Feed Continue N/A - Lab Results blood Sugar Check ACHS - Diet - Solid Texture Continue Regular - Shower allowing shower FUNCTIONAL STATUS: UPDATED AT WEEKLY TEAM CONFERENCE - Bladder Same accident frequency: 7-Ind - No accidents in the past 7 days - Bowel Same accident frequency: 7-Ind - No accidents in the past 7 days - Walking Same score based on distance walked: 0(N/A) Same score based on distance walked: 1(<=50ft) - Wheelchair Same score based on distance traveled: 0(N/A) FUNCTIONAL STATUS: - Self-Care A. Eating Ind B. Grooming Ind C. Bathing Ind D. Dressing - Upper Ind E. Dressing - Lower Gayle F. Toileting sup - Sphincter Control G. Bladder control Luz Elena H. Bowel control Luz Elena - Transfers Control I. Bed/Chair/Wheelchair Gayle J. Toilet Gayle K. Tub/Shower Gayle - Locomotion L. Walk/Wheelchair (B) sup M. Stairs Ind - Communication N. Comprehension (B) Luz Elena O. Expression (B) Luz Elena - Social Cognition P. Social Interaction Luz Elena Q. Problem Solving sup R. Memory sup - Endurance Fair - Balance Fair - Safety Awareness Fair QI SCORES: - Self-Care A. Eating 05-Setup or clean-up assistance B. Oral hygiene 05-Setup or clean-up assistance C. Toileting hygiene 04-Supervision or touching assistance E. Shower/bathe self 04-Supervision or touching assistance F. Upper body dressing 04-Supervision or touching assistance G. Lower body dressing 03-Partial/moderate assistance H. Putting on/taking off footwear 03-Partial/moderate assistance - Mobility A. Roll left and right 04-Supervision or touching assistance B. Sit to lying 04-Supervision or touching assistance C. Lying to sitting on side of bed 04-Supervision or touching assistance D. Sit to stand 04-Supervision or touching assistance E. Chair/[id number] transfer 03-Partial/moderate assistance F. Toilet transfer 03-Partial/moderate assistance G. Car transfer 10-Not attempted due to environmental limitations I. Walk 10 feet 03-Partial/moderate assistance J. Walk 50 feet with two turns 88-Not attempted due to medical condition or safety concerns K. Walk 150 feet 88-Not attempted due to medical condition or safety concerns L. Walking 10 feet on uneven surfaces 88-Not attempted due to medical condition or safety concerns M. 1 step (curb) 88-Not attempted due to medical condition or safety concerns N. 4 steps 88-Not attempted due to medical condition or safety concerns O. 12 steps 88-Not attempted due to medical condition or safety concerns P. Picking up object 88-Not attempted due to medical condition or safety concerns R. Wheel 50 feet with two turns 88-Not attempted due to medical condition or safety concerns S. Wheel 150 feet 88-Not attempted due to medical condition or safety concerns - Bladder and Bowel Bladder continence 5-No urine output Bowel continence 0-Always continent - Endurance Fair - Balance Fair - Safety Awareness Fair CURRENT [facility]. DEFICITS: Self-Care, Mobility, Endurance, Balance, and Safety Awareness SIGNATURE PANEL: (CIVIL DIVISION COMMANDER DEPUTY SHERIFF)
[2019-06-16 19:34] LABS: Gentamicin Level, Trough 0.4 ug/mL (0-2.0)
[2019-06-16] MEDS: MELATONIN 3 MG TABLET PO PRN (22:09)
[2019-06-16] MEDS: DOCUSATE NA/SENNA CONC 1 TAB PO SCH (22:09)
[2019-06-16] MEDS: GENTAMICIN 80 MG/100 ML BAG 80 MG/100 ML BAG IV SCH (22:15)
[2019-06-17] MEDS: HYDROCODONE/APAP 7.5/325 MG TAB PO PRN ×2 (01:50→08:13)
[2019-06-17] MEDS: PANTOPRAZOLE 40MG TABLET PO SCH (06:19)
[2019-06-17] MEDS: INSULIN -REGULAR HUMAN 50 UNIT/0.5 ML ML SQ SCH ×4 (07:30→19:57)
[2019-06-17] MEDS: PROMOD 30 ML DOSE PO SCH ×2 (08:00→19:56)
[2019-06-17] MEDS: SEVELAMER CARBONATE 800 MG TABLET PO SCH ×3 (08:12→17:09)
[2019-06-17] MEDS: HYDRALAZINE HCL 25 MG TABLET PO SCH ×3 (08:13→19:56)
[2019-06-17] MEDS: METOCLOPRAMIDE 5 MG TAB PO SCH (08:13)
[2019-06-17] MEDS: GABAPENTIN 300 MG CAP PO SCH ×2 (08:13→19:55)
[2019-06-17] MEDS: carvediloL 12.5 MG TAB PO SCH ×2 (08:13→19:56)
[2019-06-17] MEDS: LACTULOSE 20 GM/30 ML UCUP PO SCH (08:14)
[2019-06-17] MEDS: LIDOCAINE 4% PATCH TOP SCH (08:14)
[2019-06-17] MEDS: TRAMADOL HCL 50 MG TAB PO PRN (12:32)
[2019-06-17] MEDS: ONDANSETRON 4 MG (ODT) TAB PO PRN (14:35)
[2019-06-17] MEDS: HYDROCODONE/APAP 10/325 TAB PO PRN ×2 (14:36→19:55)
--- NOTE | 2019-06-17 14:44 | FAST ---
ENCOUNTER DATE AND TIME: 06/17/2019 08:00 (TRAFFIC CONTROLLER CABLE) NAME ODILIA PATEL DATE OF : 1955 DATE OF ADMISSION: 06/04/2019 18:59 (TRAFFIC CONTROLLER CABLE) PHONE: AGE: 63 N# [id number] GENDER: Male ENCOUNTER PHYSICIAN: Dr. Darrell Grimm M.D. ADMISSION DIAGNOSIS: - Medically Complex Conditions 17 - Terminal Care (17.6) ESRD. Right Patella Fracture. EATING: Not assessed/no information CODE: - ORAL HYGIENE: ORAL HYGIENE - STEP 1: Does the patient complete the activity by him/herself with no assistance (physical, verbal/nonverbal cueing, setup/clean-up)? Yes. 1. [id number] ADMISSION PERFORMANCE: Independent CODE: 06 TOILETING HYGIENE: Not assessed/no information CODE: - BATHING: SHOWER/BATHE SELF - STEP 1: Does the patient complete the activity by him/herself with no assistance (physical, verbal/nonverbal cueing, setup/clean-up)? No. SHOWER/BATHE SELF - STEP 2: Does the patient need only setup/clean-up assistance from one helper? No. SHOWER/BATHE SELF - STEP 3: Does the patient need only verbal/nonverbal cueing or touching/steadying/contact guard assistance fro m one helper? Yes. 1. [id number] ADMISSION PERFORMANCE: Supervision or touching assistance CODE: 04 DRESSING - UPPER BODY: DRESSING - UPPER BODY - STEP 1: Does the patient complete the activity by him/herself with no assistance (physical, verbal/nonverbal cueing, setup/clean-up)? Yes. 1. [id number] ADMISSION PERFORMANCE: Independent CODE: 06 DRESSING - LOWER BODY: DRESSING - LOWER BODY - STEP 1: Does the patient complete the activity by him/herself with no assistance (physical, verbal/nonverbal cueing, setup/clean-up)? Yes. 1. [id number] ADMISSION PERFORMANCE: Independent CODE: 06 PUTTING ON/TAKING OFF FOOTWEAR: FOOTWEAR - STEP 1: Does the patient complete the activity by him/herself with no assistance (physical, verbal/nonverbal cueing, setup/clean-up)? No. FOOTWEAR - STEP 2: Does the patient need only setup/clean-up assistance from one helper? No. FOOTWEAR - STEP 3: Does the patient need only verbal/nonverbal cueing or touching/steadying/contact guard assistance fro m one helper? Yes. 1. [id number] ADMISSION PERFORMANCE: Supervision or touching assistance CODE: 04 DOES THE PATIENT USE A WHEELCHAIR/SCOOTER? CODE: EXPR INDICATE THE TYPE OF WHEELCHAIR/SCOOTER USED: CODE: EXPR INDICATE THE TYPE OF WHEELCHAIR/SCOOTER USED: CODE: EXPR BLADDER AND BOWEL: CODE: EXPR CODE: EXPR SIGNATURE PANEL: The following modified sections: 1. [id number] Admission Performance, 1. [id number] Admission Performance, 1. [id number] Admission Performance, 1. [id number] Admission Performance, 1. [id number] Admission Performance were [electronically] signed by ALEX Hicks on SatJun 17 2019 14:43:46 GMT-0600 (Central Standard Time)
--- NOTE | 2019-06-17 16:15 | RAD REPORT ---
EXAM DESCRIPTION: RAD - Knee Right 2 View - 06/17/2019 2:58 pm CLINICAL HISTORY: increase pain/swollen COMPARISON: Knee Right 3 View dated 06/01/2019; Knee Right 3 View dated 05/25/2019 FINDINGS: Moderate to significant soft tissue swelling is seen about the knee, particular anteriorly to the patellar tendon and patella. There is mild bony fragmentation along the inferior margin of th e patella. A small to moderate suprapatellar joint effusion.
[2019-06-17] MEDS: ENOXAPARIN 30 MG/0.3 ML SQ SCH (17:09)
--- NOTE | 2019-06-17 18:35 | R.PN ---
ENCOUNTER DATE AND TIME: 06/17/2019 18:33 (CORE PILER) NAME BILLY PATEL DATE OF : 1955 DATE OF ADMISSION: 06/04/2019 18:59 (CORE PILER) ESRDRight Patella FractureCHIEF COMPLAINT: End stage renal disease and debility. SUBJECTIVE: Pt denied any depression. Pt denied any Shortness of Breath. Improved glucose levels, ranged 66 to 153. Ambulated 1000' with independence using a rolling walker. Up and down 15 steps with contact guard ass istance. Gentamicin level 1.4, Vancomycin 9.0. Hgb improved to 8.7 from 7.7 after one unit of PRBCs with dialysis. VITAL SIGNS Temperature: 97.9 F SBP/DBP: 144/71 Pulse: 62 Resp: 14 MEDICATION ALLERGIES: Corticosteroids ENVIRONMENTAL ALLERGIES: None Known - Substance Allergies None Known - Other Allergies None Known NURSING: - Shower allowing shower - Lab Results blood Sugar Check ACHS ACTIVITIES OOB only with supervision THERAPIES: - Dietary and Nutrition Adequate Nutrition. Nutritional Education. Nutritional Supplements. PHYSICAL EXAM - Gen Alert and awake Lying in bed No apparent distress Oriented to: person, time, and place - Skin No skin breakdown. Normacephalic - Eyes No abnormalities - ENMT No abnormalities - Neck No abnormalities - CVS RRR - Chest Clear - Abd + bowel sounds - GI Non distended Deferred - No abnormalities - Ext His right leg is in a brace with hemostasis at his surgical site. - MSK 4+/5 weakness in right lower extremity - Neuro 4/5 strength right lower extremity. - Psych No abnormalities ASSESSMENT: Pt. is a 63 yo Right-handed black male.On 05/27/2019 he was admitted to [facility] with diagnosis ESRD.His impairment category is Medically Complex Conditions 17 - Terminal Care ( 17.6).Pre-morbidly, Pt. was independent/mod-I in Locomotion, Safety Awareness, Balance, Social Cognit ion, Transfers Control, Sphincter Control, Self-Care, Communication, and Endurance; and he had good L ocomotion, Balance, Safety Awareness, Social Cognition, Transfers Control, Sphincter Control, Self-Ca re, Communication, and Endurance.Currently, he has deficits of Locomotion, Balance, Safety Awareness, Social Cognition, Transfers Control, Self-Care, and Endurance.Pt. is now referred to [facility] for acute in-patient rehabilitation in order to maximize patient's functional inde pendence in activities of daily living, strength, ROM, and mobility.- Rehab Goal Patient has realistic goal of being discharged at assistance level 6-Luz Elena to reside at Home with Fam juvenal/Relatives. MDM/PLAN: - Physical Therapy Gait dysfunction - to improve, our physical therapists will perform initial evaluation of pt's statu s upon admission and devise an individualized program for Gait Training, and Wheel Chair mobility Inability to transfer - to improve, our physical therapists will perform initial evaluation of pt's status upon admission and devise an individualized program for Bed mobility Need for home safety evaluation - to improve, our physical therapists will perform initial evaluatio n of pt's status upon admission and devise an individualized program for Home Evaluation Need in caregiver upon discharge - to improve, our physical therapists will perform initial evaluati on of pt's status upon admission and devise an individualized program for Caregiver Training New precaution - to improve, our physical therapists will perform initial evaluation of pt's status upon admission and devise an individualized program for Patient precaution education Poor balance - to improve, our physical therapists will perform initial evaluation of pt's status up on admission and devise an individualized program for Balance Training Poor endurance - to improve, our physical therapists will perform initial evaluation of pt's status upon admission and devise an individualized program for Endurance Training Weakness - to improve, our physical therapists will perform initial evaluation of pt's status upon a dmission and devise an individualized program for Aquatic Therapy, Neuromuscular Reeducation, and Str engthening Achieving independence - to improve, our physical therapists will perform initial evaluation of pt's status upon admission and devise an individualized program for Community Reintegration Activities - Occupational Therapy ADL deficits - to improve, our occupation therapists will perform initial evaluation of pt's status upon admission and devise an individualized program for Bathing, Bed mobility, Community Reintegratio n, Cooking, Dressing, Eating, Fine Motor Skills, Grooming, Homemaking, Kitchen Mobility, Laundry, Pat ient Education, Safety Awareness, Splinting - Positioning, Transfers(Toilet, Tub, Shower), and Wheel Chair Management Cognitive deficits - to improve, our occupation therapists will perform initial evaluation of pt's s tatus upon admission and devise an individualized program for Cognition - orientation Need for care manager - to improve, our occupation therapists will perform initial evaluation of pt's status upon admission and devise an individualized program for Caregiver Training Weakness - to improve, our occupation therapists will perform initial evaluation of pt's status upon admission and devise an individualized program for Aquatic Therapy, Balance, Endurance, UE ROM, and UE strengthening - Other See attached MAR (Medication Administration Record) See attached MAR (Medication Administration Record) Billy Patel.pdf - Diet Type Continue Regular - Diet - Liquid Texture Continue Regular - Tube Feed Continue N/A - Lab Results blood Sugar Check ACHS - Diet - Solid Texture Continue Regular - Shower allowing shower FUNCTIONAL STATUS: UPDATED AT WEEKLY TEAM CONFERENCE - Bladder Same accident frequency: 7-Ind - No accidents in the past 7 days - Bowel Same accident frequency: 7-Ind - No accidents in the past 7 days - Walking Same score based on distance walked: 0(N/A) Same score based on distance walked: 1(<=50ft) - Wheelchair Same score based on distance traveled: 0(N/A) FUNCTIONAL STATUS: - Self-Care A. Eating Ind B. Grooming Ind C. Bathing Ind D. Dressing - Upper Ind E. Dressing - Lower Gayle F. Toileting sup - Sphincter Control G. Bladder control Luz Elena H. Bowel control Luz Elena - Transfers Control I. Bed/Chair/Wheelchair Gayel J. Toilet Gayle K. Tub/Shower Gayle - Locomotion L. Walk/Wheelchair (B) sup M. Stairs Ind - Communication N. Comprehension (B) Luz Elena O. Expression (B) Luz Elena - Social Cognition P. Social Interaction Luz Elena Q. Problem Solving sup R. Memory sup - Endurance Fair - Balance Fair - Safety Awareness Fair QI SCORES: - Self-Care A. Eating 05-Setup or clean-up assistance B. Oral hygiene 05-Setup or clean-up assistance C. Toileting hygiene 04-Supervision or touching assistance E. Shower/bathe self 04-Supervision or touching assistance F. Upper body dressing 04-Supervision or touching assistance G. Lower body dressing 03-Partial/moderate assistance H. Putting on/taking off footwear 03-Partial/moderate assistance - Mobility A. Roll left and right 04-Supervision or touching assistance B. Sit to lying 04-Supervision or touching assistance C. Lying to sitting on side of bed 04-Supervision or touching assistance D. Sit to stand 04-Supervision or touching assistance E. Chair/[id number] transfer 03-Partial/moderate assistance F. Toilet transfer 03-Partial/moderate assistance G. Car transfer 10-Not attempted due to environmental limitations I. Walk 10 feet 03-Partial/moderate assistance J. Walk 50 feet with two turns 88-Not attempted due to medical condition or safety concerns K. Walk 150 feet 88-Not attempted due to medical condition or safety concerns L. Walking 10 feet on uneven surfaces 88-Not attempted due to medical condition or safety concerns M. 1 step (curb) 88-Not attempted due to medical condition or safety concerns N. 4 steps 88-Not attempted due to medical condition or safety concerns O. 12 steps 88-Not attempted due to medical condition or safety concerns P. Picking up object 88-Not attempted due to medical condition or safety concerns R. Wheel 50 feet with two turns 88-Not attempted due to medical condition or safety concerns S. Wheel 150 feet 88-Not attempted due to medical condition or safety concerns - Bladder and Bowel Bladder continence 5-No urine output Bowel continence 0-Always continent - Endurance Fair - Balance Fair - Safety Awareness Fair [facility]RENT [facility]. DEFICITS: Self-Care, Mobility, Endurance, Balance, and Safety Awareness SIGNATURE PANEL: (CORE PILER)
[2019-06-17] MEDS: ALPRAZOLAM 0.25 MG TABLET PO PRN (19:54)
[2019-06-17] MEDS: CYCLOBENZAPRINE 10 MG TAB PO PRN (19:55)
[2019-06-17] MEDS: MELATONIN 3 MG TABLET PO PRN (19:56)
[2019-06-17] MEDS: RISPERIDONE 1 MG TABLET PO SCH (19:56)
[2019-06-17] MEDS: DOCUSATE NA/SENNA CONC 1 TAB PO SCH (19:57)
--- NOTE | 2019-06-17 21:16 | PN ---
Date of Progress Note: 06/17/2019 History: Patient was admitted with knee injury, patient in rehab currently, the patient is scheduled for dialysis today. Objective: Vital Signs: Blood pressure has been well-controlled, blood pressure 144/71, pulse of 62 . Chest: Clear to auscultation. Heart: S1, S2. Regular. Abdomen: Soft, nontender. Extremities: Swelling on the right leg. Laboratory Data: H and H 8.7 and 26.3. Sodium 138, potassium 4.2, bicarb 28, BUN 51, creatinine 5, calcium 8.2. Current Medications: The patient is on include, 1.Breathing treatment. 2.Epogen. 3.Lovenox. 4.Hydralazine 25 t.i.d. 5.Carvedilol 12.5 b.i.d. 6.Gabapentin. 7.Risperidone. 8.Zoloft. 9.Reglan. 10.Pantoprazole. Assessment And Plan: 1.End-stage renal disease. We will continue the patient on dialysis TTS. 2.Secondary hyperparathyroidism. Continue current treatment. Continue binder. 3.Hypertension, controlled. We will follow up blood pressure after dialysis. 4.Anemia of chronic kidney disease. Continue SCARLETT. 5.Light chain disease. Patient did not follow up with any Hematology. 6.Knee surgery. Continue PT, OT. Follow up with rehab. 7.Anemia. Continue SCARLETT. Status post transfusion. ROMAN Voice ID: [id number] Report ID: [id number]
[2019-06-18] MEDS: HYDROCODONE/APAP 10/325 TAB PO PRN ×4 (03:03→21:55)
[2019-06-18 06:36] LABS: Absolute Lymphocytes (CBC) 0.9 K/uL (0.7-4.9); Basophils % 0.7 % (0-1.3); Hematocrit 23.2 % (39.6-49.0); Lymphocytes % 12.4 % (15.3-44.8); MPV 9.9 fL (7.6-11.3); RBC Red Blood Cell Count 2.65 M/uL (4.33-5.43)
[2019-06-18 06:55] LABS: Albumin 2.5 g/dL (3.4-5.0); Potassium 4.8 mmol/L (3.5-5.1); Prealbumin 19.7 mg/dL (20-40)
[2019-06-18] MEDS: PANTOPRAZOLE 40MG TABLET PO SCH (07:04)
[2019-06-18] MEDS: INSULIN -REGULAR HUMAN 50 UNIT/0.5 ML ML SQ SCH ×4 (07:14→21:00)
[2019-06-18] MEDS: PROMOD 30 ML DOSE PO SCH ×2 (08:00→20:00)
[2019-06-18] MEDS: LACTULOSE 20 GM/30 ML UCUP PO SCH ×2 (08:00→08:52)
[2019-06-18] MEDS: METOCLOPRAMIDE 5 MG TAB PO SCH (08:52)
[2019-06-18] MEDS: SEVELAMER CARBONATE 800 MG TABLET PO SCH ×3 (08:52→17:15)
[2019-06-18] MEDS: LIDOCAINE 4% PATCH TOP SCH (08:52)
[2019-06-18] MEDS: GABAPENTIN 300 MG CAP PO SCH ×2 (08:52→21:53)
[2019-06-18] MEDS: HYDRALAZINE HCL 25 MG TABLET PO SCH ×3 (08:53→21:54)
[2019-06-18] MEDS: carvediloL 12.5 MG TAB PO SCH ×2 (08:53→21:54)
[2019-06-18] MEDS: SERTRALINE HCL 50 MG TAB PO SCH (08:53)
--- NOTE | 2019-06-18 11:22 | FAST ---
SHIFT START DATE/TIME: 06/18/2019 07:00 (ACCREDITATION COORDINATOR) SHIFT END DATE/TIME: 06/18/2019 19:00 (ACCREDITATION COORDINATOR) NAME ODILIA PATEL DATE OF : 1955 DATE OF ADMISSION: 06/04/2019 18:59 (ACCREDITATION COORDINATOR) PHONE: AGE: 63 N# [id number] GENDER: Male ENCOUNTER PHYSICIAN: Dr. Darrell Grimm M.D. ADMISSION DIAGNOSIS: - Medically Complex Conditions 17 - Terminal Care (17.6) ESRD. Right Patella Fracture. EATING: EATING - STEP 1: Does the patient complete the activity by him/herself with no assistance (physical, verbal/nonverbal cueing, setup/clean-up)? No. EATING - STEP 2: Does the patient need only setup/clean-up assistance from one helper? No. EATING - STEP 3: Does the patient need only verbal/nonverbal cueing or touching/steadying/contact guard assistance fro m one helper? Yes. 1. [id number] ADMISSION PERFORMANCE: Supervision or touching assistance CODE: 04 ORAL HYGIENE: ORAL HYGIENE - STEP 1: Does the patient complete the activity by him/herself with no assistance (physical, verbal/nonverbal cueing, setup/clean-up)? No. ORAL HYGIENE - STEP 2: Does the patient need only setup/clean-up assistance from one helper? No. ORAL HYGIENE - STEP 3: Does the patient need only verbal/nonverbal cueing or touching/steadying/contact guard assistance fro m one helper? Yes. 1. [id number] ADMISSION PERFORMANCE: Supervision or touching assistance CODE: 04 TOILETING HYGIENE: TOILETING HYGIENE - STEP 1: Does the patient complete the activity by him/herself with no assistance (physical, verbal/nonverbal cueing, setup/clean-up)? No. TOILETING HYGIENE - STEP 2: Does the patient need only setup/clean-up assistance from one helper? No. TOILETING HYGIENE - STEP 3: Does the patient need only verbal/nonverbal cueing or touching/steadying/contact guard assistance fro m one helper? Yes. 1. [id number] ADMISSION PERFORMANCE: Supervision or touching assistance CODE: 04 BATHING: Not assessed/no information CODE: - DRESSING - UPPER BODY: DRESSING - UPPER BODY - STEP 1: Does the patient complete the activity by him/herself with no assistance (physical, verbal/nonverbal cueing, setup/clean-up)? No. DRESSING - UPPER BODY - STEP 2: Does the patient need only setup/clean-up assistance from one helper? No. DRESSING - UPPER BODY - STEP 3: Does the patient need only verbal/nonverbal cueing or touching/steadying/contact guard assistance fro m one helper? Yes. 1. [id number] ADMISSION PERFORMANCE: Supervision or touching assistance CODE: 04 DRESSING - LOWER BODY: DRESSING - LOWER BODY - STEP 1: Does the patient complete the activity by him/herself with no assistance (physical, verbal/nonverbal cueing, setup/clean-up)? No. DRESSING - LOWER BODY - STEP 2: Does the patient need only setup/clean-up assistance from one helper? No. DRESSING - LOWER BODY - STEP 3: Does the patient need only verbal/nonverbal cueing or touching/steadying/contact guard assistance fro m one helper? Yes. 1. [id number] ADMISSION PERFORMANCE: Supervision or touching assistance CODE: 04 PUTTING ON/TAKING OFF FOOTWEAR: Not assessed/no information CODE: - ROLL LEFT AND RIGHT: Not assessed/no information CODE: - SIT TO LYING: Not assessed/no information CODE: - LYING TO SITTING: Not assessed/no information CODE: - SIT TO STAND: Not assessed/no information CODE: - TRANSFERS: BED, CHAIR: [id number]/[id number] TRANSFER - STEP 1: Does the patient complete the activity by him/herself with no assistance (physical, verbal/nonverbal cueing, setup/clean-up)? No. CHAIR/[id number] TRANSFER - STEP 2: Does the patient need only setup/clean-up assistance from one helper? Yes. 1. [id number] ADMISSION PERFORMANCE: Setup or clean-up assistance CODE: 05 TRANSFER TOILET: TOILET TRANSFER - STEP 1: Does the patient complete the activity by him/herself with no assistance (physical, verbal/nonverbal cueing, setup/clean-up)? No. TOILET TRANSFER - STEP 2: Does the patient need only setup/clean-up assistance from one helper? Yes. 1. [id number] ADMISSION PERFORMANCE: Setup or clean-up assistance CODE: 05 TRANSFERS: CAR: Not assessed/no information CODE: - WALK 10 FEET: Not assessed/no information CODE: - 1 STEP (CURB): Not assessed/no information CODE: - PICKING UP OBJECT: Not assessed/no information CODE: - DOES THE PATIENT USE A WHEELCHAIR/SCOOTER? CODE: EXPR WHEEL 50 FEET WITH TWO TURNS: Not assessed/no information CODE: - INDICATE THE TYPE OF WHEELCHAIR/SCOOTER USED: CODE: EXPR WHEEL 150 FEET: Not assessed/no information CODE: - INDICATE THE TYPE OF WHEELCHAIR/SCOOTER USED: CODE: EXPR BLADDER AND BOWEL: H350. BLADDER CONTINENCE (3-DAY ASSESSMENT PERIOD): Always continent (no documented incontinence) CODE: 0 H400. BOWEL CONTINENCE (3-DAY ASSESSMENT PERIOD): Always continent CODE: 0 SIGNATURE PANEL: The following modified sections: 1. [id number] Admission Performance, 1. [id number] Admission Performance, 1. [id number] Admission Performance, 1. PG1591a Admission Performance, 1. [id number] Admission Performance, 1. [id number] Admission Performance, 1. [id number] Admission Performance, 1. [id number] Admission Performance , 1. [id number] Admission Performance, Code, H350. Bladder Continence (3-day assessment period), H400. B owel Continence (3-day assessment period) were [electronically] signed by José Miguel Sheffield on SatJun 18 11:22:09 T-0600 (Central Standard Time)
[2019-06-18] MEDS: TRAMADOL HCL 50 MG TAB PO PRN (12:16)
--- NOTE | 2019-06-18 17:07 | P.PN ---
Subjective Date of Service: 06/16/19 Subjective: Ambulating, Improving, Working w/ PT pain improved; leann to be removed today Physical Examination - Vital Signs Temperature: 96.7 F Blood Pressure: 136/70 Pulse: 59 Respirations: 16 Pulse Ox (%): 97 - Physical Exam General: Alert, In no apparent distress Musculoskeletal: Other (RLE: incision healed and c/d/i; no active drainage; + straight leg raise; NVI distally) - Studies Laboratory Data (last 24 hrs) 06/18/19 06:03: Sodium 139, Potassium 4.8, BUN 45 H, Creatinine 4.98 H, Glucose 160 H, Magnesium 3.0 H 06/18/19 06:03: WBC 6.9 D, Hgb 7.2 L*, Hct 23.2 L, Plt Count 109 L Assessment And Plan - Plan Billy is a 63 yo male s/p right knee partial patellectomy with patellar tendon repair -dressing changed without complication; leann to be removed today -continue PT; progress to WBAT RLE in knee immobilizer
[2019-06-18] MEDS: ENOXAPARIN 30 MG/0.3 ML SQ SCH (17:15)
--- NOTE | 2019-06-18 17:47 | R.PN ---
ENCOUNTER DATE AND TIME: 06/18/2019 17:43 (BUSINESS RISK CONSULTANT) NAME BILLY PATEL DATE OF : 1955 DATE OF ADMISSION: 06/04/2019 18:59 (BUSINESS RISK CONSULTANT) ESRDRight Patella FractureCHIEF COMPLAINT: End stage renal disease and debility. SUBJECTIVE: Pt denied any depression. Pt denied any Shortness of Breath. Improved glucose levels, ranged 66 to 153. Ambulated 150' with independence using a rolling walker. Up and down 15 steps with contact guard assi stance. Patient states that pain is under control. Hgb decreased to 7.2. He will get another unit of PRBCs with dialysis. VITAL SIGNS Temperature: 97.9 F SBP/DBP: 136/70 Pulse: 59 Resp: 16 MEDICATION ALLERGIES: Corticosteroids ENVIRONMENTAL ALLERGIES: None Known - Substance Allergies None Known - Other Allergies None Known NURSING: - Shower allowing shower - Lab Results blood Sugar Check ACHS ACTIVITIES OOB only with supervision THERAPIES: - Dietary and Nutrition Adequate Nutrition. Nutritional Education. Nutritional Supplements. PHYSICAL EXAM - Gen Alert and awake Lying in bed No apparent distress Oriented to: person, time, and place - Skin No skin breakdown. Normacephalic - Eyes No abnormalities - ENMT No abnormalities - Neck No abnormalities - CVS RRR - Chest Clear - Abd + bowel sounds - GI Non distended Deferred - No abnormalities - Ext His right leg is in a brace with hemostasis at his surgical site. - MSK 4+/5 weakness in right lower extremity - Neuro 4/5 strength right lower extremity. - Psych No abnormalities ASSESSMENT: Pt. is a 63 yo Right-handed black male.On 05/27/2019 he was admitted to [facility] with diagnosis ESRD.His impairment category is Medically Complex Conditions 17 - Terminal Care ( 17.6).Pre-morbidly, Pt. was independent/mod-I in Locomotion, Safety Awareness, Balance, Social Cognit ion, Transfers Control, Sphincter Control, Self-Care, Communication, and Endurance; and he had good L ocomotion, Balance, Safety Awareness, Social Cognition, Transfers Control, Sphincter Control, Self-Ca re, Communication, and Endurance.Currently, he has deficits of Locomotion, Balance, Safety Awareness, Social Cognition, Transfers Control, Self-Care, and Endurance.Pt. is now referred to [facility] for acute in-patient rehabilitation in order to maximize patient's functional inde pendence in activities of daily living, strength, ROM, and mobility.- Rehab Goal Patient has realistic goal of being discharged at assistance level 6-Luz Elena to reside at Home with Fam juvenal/Relatives. MDM/PLAN: - Physical Therapy Gait dysfunction - to improve, our physical therapists will perform initial evaluation of pt's statu s upon admission and devise an individualized program for Gait Training, and Wheel Chair mobility Inability to transfer - to improve, our physical therapists will perform initial evaluation of pt's status upon admission and devise an individualized program for Bed mobility Need for home safety evaluation - to improve, our physical therapists will perform initial evaluatio n of pt's status upon admission and devise an individualized program for Home Evaluation Need in caregiver upon discharge - to improve, our physical therapists will perform initial evaluati on of pt's status upon admission and devise an individualized program for Caregiver Training New precaution - to improve, our physical therapists will perform initial evaluation of pt's status upon admission and devise an individualized program for Patient precaution education Poor balance - to improve, our physical therapists will perform initial evaluation of pt's status up on admission and devise an individualized program for Balance Training Poor endurance - to improve, our physical therapists will perform initial evaluation of pt's status upon admission and devise an individualized program for Endurance Training Weakness - to improve, our physical therapists will perform initial evaluation of pt's status upon a dmission and devise an individualized program for Aquatic Therapy, Neuromuscular Reeducation, and Str engthening Achieving independence - to improve, our physical therapists will perform initial evaluation of pt's status upon admission and devise an individualized program for Community Reintegration Activities - Occupational Therapy ADL deficits - to improve, our occupation therapists will perform initial evaluation of pt's status upon admission and devise an individualized program for Bathing, Bed mobility, Community Reintegratio n, Cooking, Dressing, Eating, Fine Motor Skills, Grooming, Homemaking, Kitchen Mobility, Laundry, Pat ient Education, Safety Awareness, Splinting - Positioning, Transfers(Toilet, Tub, Shower), and Wheel Chair Management Cognitive deficits - to improve, our occupation therapists will perform initial evaluation of pt's s tatus upon admission and devise an individualized program for Cognition - orientation Need for senior care manager - to improve, our occupation therapists will perform initial evaluation of pt's status upon admission and devise an individualized program for Caregiver Training Weakness - to improve, our occupation therapists will perform initial evaluation of pt's status upon admission and devise an individualized program for Aquatic Therapy, Balance, Endurance, UE ROM, and UE strengthening - Other See attached MAR (Medication Administration Record) See attached MAR (Medication Administration Record) Billy Patel.pdf - Diet Type Continue Regular - Diet - Liquid Texture Continue Regular - Tube Feed Continue N/A - Lab Results blood Sugar Check ACHS - Diet - Solid Texture Continue Regular - Shower allowing shower FUNCTIONAL STATUS: UPDATED AT WEEKLY TEAM CONFERENCE - Bladder Same accident frequency: 7-Ind - No accidents in the past 7 days - Bowel Same accident frequency: 7-Ind - No accidents in the past 7 days - Walking Same score based on distance walked: 0(N/A) Same score based on distance walked: 1(<=50ft) - Wheelchair Same score based on distance traveled: 0(N/A) FUNCTIONAL STATUS: - Self-Care A. Eating Ind B. Grooming Ind C. Bathing Ind D. Dressing - Upper Ind E. Dressing - Lower Gayle F. Toileting sup - Sphincter Control G. Bladder control Luz Elena H. Bowel control Luz Elena - Transfers Control I. Bed/Chair/Wheelchair Gayle J. Toilet Gayle K. Tub/Shower Gayle - Locomotion L. Walk/Wheelchair (B) sup M. Stairs Ind - Communication N. Comprehension (B) Luz Elena O. Expression (B) Luz Elena - Social Cognition P. Social Interaction Luz Elena Q. Problem Solving sup R. Memory sup - Endurance Fair - Balance Fair - Safety Awareness Fair QI SCORES: - Self-Care A. Eating 05-Setup or clean-up assistance B. Oral hygiene 05-Setup or clean-up assistance C. Toileting hygiene 04-Supervision or touching assistance E. Shower/bathe self 04-Supervision or touching assistance F. Upper body dressing 04-Supervision or touching assistance G. Lower body dressing 03-Partial/moderate assistance H. Putting on/taking off footwear 03-Partial/moderate assistance - Mobility A. Roll left and right 04-Supervision or touching assistance B. Sit to lying 04-Supervision or touching assistance C. Lying to sitting on side of bed 04-Supervision or touching assistance D. Sit to stand 04-Supervision or touching assistance E. Chair/ebo-ci-frpnj transfer 03-Partial/moderate assistance F. Toilet transfer 03-Partial/moderate assistance G. Car transfer 10-Not attempted due to environmental limitations I. Walk 10 feet 03-Partial/moderate assistance J. Walk 50 feet with two turns 88-Not attempted due to medical condition or safety concerns K. Walk 150 feet 88-Not attempted due to medical condition or safety concerns L. Walking 10 feet on uneven surfaces 88-Not attempted due to medical condition or safety concerns M. 1 step (curb) 88-Not attempted due to medical condition or safety concerns N. 4 steps 88-Not attempted due to medical condition or safety concerns O. 12 steps 88-Not attempted due to medical condition or safety concerns P. Picking up object 88-Not attempted due to medical condition or safety concerns R. Wheel 50 feet with two turns 88-Not attempted due to medical condition or safety concerns S. Wheel 150 feet 88-Not attempted due to medical condition or safety concerns - Bladder and Bowel Bladder continence 5-No urine output Bowel continence 0-Always continent - Endurance Fair - Balance Fair - Safety Awareness Fair CURRENT [facility]. DEFICITS: Self-Care, Mobility, Endurance, Balance, and Safety Awareness SIGNATURE PANEL: (BUSINESS RISK CONSULTANT)
[2019-06-18] MEDS: DOCUSATE NA/SENNA CONC 1 TAB PO SCH (21:00)
[2019-06-18] MEDS: CYCLOBENZAPRINE 10 MG TAB PO PRN (21:53)
[2019-06-18] MEDS: MELATONIN 3 MG TABLET PO PRN (21:54)
[2019-06-18] MEDS: ALPRAZOLAM 0.25 MG TABLET PO PRN (21:54)
[2019-06-18] MEDS: RISPERIDONE 1 MG TABLET PO SCH (21:56)
[2019-06-18 22:23] LABS: Hematocrit 27.6 % (39.6-49.0)
[2019-06-19] MEDS: TRAMADOL HCL 50 MG TAB PO PRN ×2 (02:57→12:03)
[2019-06-19] MEDS: PANTOPRAZOLE 40MG TABLET PO SCH (06:41)
[2019-06-19] MEDS: INSULIN -REGULAR HUMAN 50 UNIT/0.5 ML ML SQ SCH ×4 (07:30→21:00)
[2019-06-19] MEDS: LACTULOSE 20 GM/30 ML UCUP PO SCH (08:00)
[2019-06-19] MEDS: PROMOD 30 ML DOSE PO SCH ×2 (08:00→19:47)
[2019-06-19] MEDS: HYDROCODONE/APAP 10/325 TAB PO PRN ×2 (08:37→22:16)
[2019-06-19] MEDS: carvediloL 12.5 MG TAB PO SCH ×2 (08:39→19:46)
[2019-06-19] MEDS: SERTRALINE HCL 50 MG TAB PO SCH (08:39)
[2019-06-19] MEDS: SEVELAMER CARBONATE 800 MG TABLET PO SCH ×3 (08:39→17:23)
[2019-06-19] MEDS: HYDRALAZINE HCL 25 MG TABLET PO SCH ×3 (08:40→21:33)
[2019-06-19] MEDS: METOCLOPRAMIDE 5 MG TAB PO SCH (08:40)
[2019-06-19] MEDS: GABAPENTIN 300 MG CAP PO SCH ×2 (08:40→19:45)
[2019-06-19] MEDS: LIDOCAINE 4% PATCH TOP SCH (09:19)
--- NOTE | 2019-06-19 09:59 | P.RH.PN ---
Estimated Length of Stay: 17 Expected Discharge Date: 06/20/19 Discharge Disposition Plan: Home Family Support: Yes Long-Term Goal: Mobility, Transfers, Self Care Vital Signs: Last Vital Signs Temp 98.1 F 06/19/19 07:47 Pulse 64 06/19/19 08:39 Resp 17 06/19/19 09:37 BP 132/63 06/19/19 08:39 Pulse Ox 94 06/19/19 09:37 Laboratory: Laboratory Last Values WBC 6.9 K/uL (4.3-10.9) D 06/18/19 06:03 RBC 2.65 M/uL (4.33-5.43) L 06/18/19 06:03 Hgb 8.9 g/dL (13.6-17.9) L 06/18/19 22:15 Hct 27.6 % (39.6-49.0) L D 06/18/19 22:15 MCV 87.5 fL (80-100) 06/18/19 06:03 MCH 27.3 pg (27.0-35.0) 06/18/19 06:03 MCHC 31.2 g/dL (32.0-36.0) L 06/18/19 06:03 RDW 17.9 % (12.1-15.2) H 06/18/19 06:03 Plt Count 109 K/uL (152-406) L 06/18/19 06:03 MPV 9.9 fL (7.6-11.3) D 06/18/19 06:03 Neutrophils % 66.0 % (41.7-73.7) 06/18/19 06:03 Lymphocytes % 12.4 % (15.3-44.8) L 06/18/19 06:03 Monocytes % 10.2 % (3.3-12.3) 06/18/19 06:03 Eosinophils % 10.7 % (0-4.4) H 06/18/19 06:03 Basophils % 0.7 % (0-1.3) 06/18/19 06:03 Absolute Neutrophils 4.6 K/uL (1.8-8.0) 06/18/19 06:03 Segmented Neutrophils 79 % (40-80) 06/05/19 06:22 Band Neutrophils 1 % (0-1) 06/05/19 06:22 Absolute Lymphocytes 0.9 K/uL (0.7-4.9) 06/18/19 06:03 Lymphocytes 7 % (15-42) L 06/05/19 06:22 Monocytes 4 % (0-10) 06/05/19 06:22 Absolute Monocytes 0.7 K/uL (0.1-1.3) 06/18/19 06:03 Eosinophils 7 % (0-3) H 06/05/19 06:22 Absolute Eosinophils 0.7 K/uL (0-0.5) H 06/18/19 06:03 Basophils 2 % (0-1) H 06/05/19 06:22 Absolute Basophils 0.1 K/uL (0-0.5) 06/18/19 06:03 Anisocytosis 1+ 06/05/19 06:22 Microcytosis 1+ 06/05/19 06:22 Morphology Comment Noted (NOT SEEN) 06/05/19 06:22 Sodium 139 mmol/L (136-145) 06/18/19 06:03 Potassium 4.8 mmol/L (3.5-5.1) 06/18/19 06:03 Chloride 104 mmol/L (98-107) 06/18/19 06:03 Carbon Dioxide 30 mmol/L (21-32) 06/18/19 06:03 BUN 45 mg/dL (7-18) H 06/18/19 06:03 Creatinine 4.98 mg/dL (0.55-1.3) H 06/18/19 06:03 Estimated GFR 14 mL/min (=/>90) L 06/18/19 06:03 Glucose 160 mg/dL (74-106) H 06/18/19 06:03 POC Glucose 87 mg/dl (65-120) 06/19/19 07:31 Calcium 8.3 mg/dL (8.5-10.1) L 06/18/19 06:03 Magnesium 3.0 mg/dL (1.8-2.4) H 06/18/19 06:03 Albumin 2.5 g/dL (3.4-5.0) L 06/18/19 06:03 Prealbumin 19.7 mg/dL (20-40) L 06/18/19 06:03 Urine Color Yellow 06/05/19 01:45 Urine Appearance Cloudy 06/05/19 01:45 Urine pH 5.5 (5.0-7.0) 06/05/19 01:45 Ur Specific [place] 1.025 (1.005-1.030) 06/05/19 01:45 Urine Ketones Negative (NEG) 06/05/19 01:45 Urine Blood Negative (NEG) 06/05/19 01:45 Urine Nitrite Negative (NEG) 06/05/19 01:45 Urine Bilirubin Negative (NEG) 06/05/19 01:45 Urine Urobilinogen 0.2 mg/dL (0.2-1.0) 06/05/19 01:45 Ur Leukocyte Esterase Negative (NEG) 06/05/19 01:45 Urine RBC <5 /HPF (NONE SEEN) 06/05/19 01:45 Urine WBC 10-20 /HPF (<5) H 06/05/19 01:45 Ur Squamous Epith Cells 10-20 /HPF (NONE SEEN) H 06/05/19 01:45 Amorphous Sediment 2+ /HPF (NONE SEEN) H 06/05/19 01:45 Urine Bacteria >50 /HPF (NONE SEEN) H 06/05/19 01:45 Coarse Granular Casts 0-5 /LPF (NONE SEEN) 06/05/19 01:45 Urine Mucus 2+ /HPF (NONE SEEN) 06/05/19 01:45 Urine Culture Reflexed Not needed 06/05/19 01:45 Urine Glucose Negative (NEG) 06/05/19 01:45 Urine Total Protein 2+ (NEG) H 06/05/19 01:45 Gentamicin Trough 0.4 ug/mL (0-2.0) 06/16/19 18:47 Vancomycin Trough 11.6 ug/mL (5.0-20.0) 06/16/19 18:47 Hep Bs Antigen Cancelled 06/15/19 13:00 Hep Bs Ag Confirmation Cancelled 06/15/19 13:00 Hep Bs Antibody Cancelled 06/15/19 13:00 Hep Bs Antibody, Quant Cancelled 06/15/19 13:00 Hep B Core Total Ab Cancelled 06/15/19 13:00 Hep B Core IgM Ab Cancelled 06/15/19 13:00 ABO/Rh B POSITIVE 06/18/19 13:53 Solid Phase Ab Screen Negative 06/18/19 13:53 Crossmatch See Detail 06/18/19 13:53 Weight: 168 lb 14.4 oz Wound Present: Yes Closed Surgical Incision Present: Yes Negative Pressure Wound Therapy Present: No Physician Update: Labs reviewed and are stable except he has ESRD and HD three times weekly. He is walking 150' with standby assistance using a rolling walker. He can go up and down steps with crutches. He will be discharged home in the AM. Medical Issues: Patient is always continent with bladder and bowel Pain Issues: Patient is taking Tramadol 50mg Q8H PO PRN, Andrews 7.5/325mg Q6H PO PRN, Tylenol 500mg Q4H PO PRN for pain Functional Improvement: pt has demonstrated good progress throughout the week. pt has improved his tolerance to ambulation and safety with gait technique. pt was limited by pain the past 2 days and is currently presenting with low hemoglobin and will receive a unit of blood with dialysis this afternoon. Despite these issues, pt continues to perform functional mobility safely and Independently. Summary: Patient's care plan and cost and risk analysis manager goals have been reviewed and revised as necessary. Please see the Rehabilitation Signature page for all necessary signatures.
[2019-06-19] MEDS ORDERED: EPOETIN 4,000 UNIT/ML VIAL IV SCH (13:45)
--- NOTE | 2019-06-19 13:45 | P.PN ---
Subjective Date of Service: 06/19/19 Pt with ESRD, admitted for Knee taruma found to have patella fracture Today no overnight events participating in PT/OT Hd tomorrow will increase epogen discharge plan as per primary team Physical exam general: Awake and alert , pt was agitated Neck; Supple, No elevated JVD hear: RRR, normal S1,2 no murmur or rub Chest: Basal rales Abdomen: Soft , Nt Extremities no edema, Lt knee with cast ESRD on HD TTsat HD as per schedule renal dose meds Rt patela fracture S/P surgical intervention PT/OT Anemia of chronic disease will increase Epogen transfuse to keep hb >7.0 MBD cont binders Physical Examination - Vital Signs Temperature: 98.1 F Blood Pressure: 132/63 Pulse: 64 Respirations: 17 Pulse Ox (%): 94 - Studies Laboratory Data (last 24 hrs) 06/18/19 22:15: Hgb 8.9 L, Hct 27.6 L D
--- NOTE | 2019-06-19 15:04 | FAST ---
ENCOUNTER DATE AND TIME: 06/18/2019 08:00 (REHAB/PRE VOCATIONAL COUNSELOR) NAME ODILIA PATEL DATE OF : 1955 DATE OF ADMISSION: 06/04/2019 18:59 (REHAB/PRE VOCATIONAL COUNSELOR) PHONE: AGE: 63 N# [id number] GENDER: Male ENCOUNTER PHYSICIAN: Dr. Darrell Grimm M.D. ADMISSION DIAGNOSIS: - Medically Complex Conditions 17 - Terminal Care (17.6) ESRD. Right Patella Fracture. ROLL LEFT AND RIGHT: ROLL LEFT AND RIGHT - STEP 1: Does the patient complete the activity by him/herself with no assistance (physical, verbal/nonverbal cueing, setup/clean-up)? Yes. 1. [id number] ADMISSION PERFORMANCE: Independent CODE: 06 SIT TO LYING: SIT TO LYING - STEP 1: Does the patient complete the activity by him/herself with no assistance (physical, verbal/nonverbal cueing, setup/clean-up)? Yes. 1. [id number] ADMISSION PERFORMANCE: Independent CODE: 06 LYING TO SITTING: LYING TO SITTING ON SIDE OF BED - STEP 1: Does the patient complete the activity by him/herself with no assistance (physical, verbal/nonverbal cueing, setup/clean-up)? Yes. 1. [id number] ADMISSION PERFORMANCE: Independent CODE: 06 SIT TO STAND: SIT TO STAND - STEP 1: Does the patient complete the activity by him/herself with no assistance (physical, verbal/nonverbal cueing, setup/clean-up)? Yes. 1. [id number] ADMISSION PERFORMANCE: Independent CODE: 06 TRANSFERS: BED, CHAIR: CHAIR/[id number] TRANSFER - STEP 1: Does the patient complete the activity by him/herself with no assistance (physical, verbal/nonverbal cueing, setup/clean-up)? Yes. 1. [id number] ADMISSION PERFORMANCE: Independent CODE: 06 TRANSFER TOILET: TOILET TRANSFER - STEP 1: Does the patient complete the activity by him/herself with no assistance (physical, verbal/nonverbal cueing, setup/clean-up)? Yes. 1. [id number] ADMISSION PERFORMANCE: Independent CODE: 06 TRANSFERS: CAR: Not attempted due to environmental limitations (e.g., lack of equipment, weather constraints) CODE: 10 WALK 10 FEET: WALK 10 FEET - STEP 1: Does the patient complete the activity by him/herself with no assistance (physical, verbal/nonverbal cueing, setup/clean-up)? Yes. 1. [id number] ADMISSION PERFORMANCE: Independent CODE: 06 WALK 50 FEET: WALK 50 FEET - STEP 1: Does the patient complete the activity by him/herself with no assistance (physical, verbal/nonverbal cueing, setup/clean-up)? Yes. 1. [id number] ADMISSION PERFORMANCE: Independent CODE: 06 WALK 150 FEET: WALK 150 FEET - STEP 1: Does the patient complete the activity by him/herself with no assistance (physical, verbal/nonverbal cueing, setup/clean-up)? Yes. 1. [id number] ADMISSION PERFORMANCE: Independent CODE: 06 WALK 10 FEET UNEVEN: Not attempted due to medical condition or safety concerns CODE: 88 1 STEP (CURB): 1 STEP CURB - STEP 1: Does the patient complete the activity by him/herself with no assistance (physical, verbal/nonverbal cueing, setup/clean-up)? No. 1 STEP CURB - STEP 2: Does the patient need only setup/clean-up assistance from one helper? Yes. 1. [id number] ADMISSION PERFORMANCE: Setup or clean-up assistance CODE: 05 4 STEPS: 4 STEPS - STEP 1: Does the patient complete the activity by him/herself with no assistance (physical, verbal/nonverbal cueing, setup/clean-up)? No. 4 STEPS - STEP 2: Does the patient need only setup/clean-up assistance from one helper? Yes. 1. [id number] ADMISSION PERFORMANCE: Setup or clean-up assistance CODE: 05 12 STEPS: 12 STEPS - STEP 1: Does the patient complete the activity by him/herself with no assistance (physical, verbal/nonverbal cueing, setup/clean-up)? No. 12 STEPS - STEP 2: Does the patient need only setup/clean-up assistance from one helper? Yes. 1. [id number] ADMISSION PERFORMANCE: Setup or clean-up assistance CODE: 05 PICKING UP OBJECT: Not attempted due to medical condition or safety concerns CODE: 88 DOES THE PATIENT USE A WHEELCHAIR/SCOOTER? Q1. DOES THE PATIENT USE A WHEELCHAIR/SCOOTER?: Yes CODE: 1 WHEEL 50 FEET WITH TWO TURNS: WHEEL 50 FEET WITH TWO TURNS - STEP 1: Does the patient complete the activity by him/herself with no assistance (physical, verbal/nonverbal cueing, setup/clean-up)? Yes. 1. [id number] ADMISSION PERFORMANCE: Independent CODE: 06 INDICATE THE TYPE OF WHEELCHAIR/SCOOTER USED: RR1. INDICATE THE TYPE OF WHEELCHAIR/SCOOTER USED.: Manual CODE: 1 WHEEL 150 FEET: WHEEL 150 FEET - STEP 1: Does the patient complete the activity by him/herself with no assistance (physical, verbal/nonverbal cueing, setup/clean-up)? Yes. 1. [id number] ADMISSION PERFORMANCE: Independent CODE: 06 INDICATE THE TYPE OF WHEELCHAIR/SCOOTER USED: SS1. INDICATE THE TYPE OF WHEELCHAIR/SCOOTER USED.: Manual CODE: 1 BLADDER AND BOWEL: CODE: EXPR CODE: EXPR SIGNATURE PANEL: The following modified sections: 1. [id number] Admission Performance, 1. [id number] Admission Performance, 1. [id number] Admission Performance, 1. [id number] Admission Performance, 1. [id number] Admission Performance, 1. [id number] Admission Performance, 1. [id number] Admission Performance, 1. [id number] Admission Performance , 1. [id number] Admission Performance, 1. [id number] Admission Performance, 1. [id number] Admission Performanc e, 1. [id number] Admission Performance, 1. [id number] Admission Performance, Q1. Does the patient use a whe elchair/scooter?, 1. [id number] Admission Performance, RR1. Indicate the type of wheelchair/scooter used ., 1. [id number] Admission Performance, Code, SS1. Indicate the type of wheelchair/scooter used. were [e lectronically] signed by Sterling Russ PTA on SatJun 19 2019 15:03:37 GMT-0600 (Central Standard Time)
--- NOTE | 2019-06-19 15:52 | FAST ---
ENCOUNTER DATE AND TIME: 06/19/2019 08:00 (SURGICAL INSTRUMENTS INSPECTOR) NAME ODILIA PATEL DATE OF : 1955 DATE OF ADMISSION: 06/04/2019 18:59 (SURGICAL INSTRUMENTS INSPECTOR) PHONE: AGE: 63 N# [id number] GENDER: Male ENCOUNTER PHYSICIAN: Dr. Darrell Grimm M.D. ADMISSION DIAGNOSIS: - Medically Complex Conditions 17 - Terminal Care (17.6) ESRD. Right Patella Fracture. EATING: Not assessed/no information CODE: - ORAL HYGIENE: ORAL HYGIENE - STEP 1: Does the patient complete the activity by him/herself with no assistance (physical, verbal/nonverbal cueing, setup/clean-up)? Yes. 1. ADMISSION PERFORMANCE: Independent CODE: 06 TOILETING HYGIENE: Not assessed/no information CODE: - BATHING: SHOWER/BATHE SELF - STEP 1: Does the patient complete the activity by him/herself with no assistance (physical, verbal/nonverbal cueing, setup/clean-up)? Yes. 1. ADMISSION PERFORMANCE: Independent CODE: 06 DRESSING - UPPER BODY: DRESSING - UPPER BODY - STEP 1: Does the patient complete the activity by him/herself with no assistance (physical, verbal/nonverbal cueing, setup/clean-up)? Yes. 1. ADMISSION PERFORMANCE: Independent CODE: 06 DRESSING - LOWER BODY: DRESSING - LOWER BODY - STEP 1: Does the patient complete the activity by him/herself with no assistance (physical, verbal/nonverbal cueing, setup/clean-up)? Yes. 1. ADMISSION PERFORMANCE: Independent CODE: 06 PUTTING ON/TAKING OFF FOOTWEAR: FOOTWEAR - STEP 1: Does the patient complete the activity by him/herself with no assistance (physical, verbal/nonverbal cueing, setup/clean-up)? Yes. 1. ADMISSION PERFORMANCE: Independent CODE: 06 DOES THE PATIENT USE A WHEELCHAIR/SCOOTER? CODE: EXPR INDICATE THE TYPE OF WHEELCHAIR/SCOOTER USED: CODE: EXPR INDICATE THE TYPE OF WHEELCHAIR/SCOOTER USED: CODE: EXPR BLADDER AND BOWEL: CODE: EXPR CODE: EXPR SIGNATURE PANEL: The following modified sections: 1. [id number] Admission Performance, 1. [id number] Admission Performance, 1. BT1504b Admission Performance, 1. [id number] Admission Performance, 1. [id number] Admission Performance were [electronically] signed by ALEX Hicks on SatJun 19 2019 15:51:36 GMT-0600 (Central Standard Time)
[2019-06-19] MEDS: ENOXAPARIN 30 MG/0.3 ML SQ SCH (17:23)
[2019-06-19] MEDS: DOCUSATE NA/SENNA CONC 1 TAB PO SCH (21:00)
[2019-06-19 21:02] LABS: HBsAG Nonreactive (Nonreactive)
[2019-06-19] MEDS: RISPERIDONE 1 MG TABLET PO SCH (21:31)
[2019-06-19] MEDS: MELATONIN 3 MG TABLET PO PRN (22:16)
--- NOTE | 2019-06-20 02:42 | FAST ---
SHIFT START DATE/TIME: 06/19/2019 19:00 (GEOLOGIST) SHIFT END DATE/TIME: 06/20/2019 07:00 (GEOLOGIST) NAME ODILIA PATEL DATE OF : 1955 DATE OF ADMISSION: 06/04/2019 18:59 (GEOLOGIST) PHONE: AGE: 63 N# [id number] GENDER: Male ENCOUNTER PHYSICIAN: Dr. Darrell Grimm M.D. ADMISSION DIAGNOSIS: - Medically Complex Conditions 17 - Terminal Care (17.6) ESRD. Right Patella Fracture. EATING: Not assessed/no information CODE: - ORAL HYGIENE: Not assessed/no information CODE: - TOILETING HYGIENE: TOILETING HYGIENE - STEP 1: Does the patient complete the activity by him/herself with no assistance (physical, verbal/nonverbal cueing, setup/clean-up)? Yes. 1. [id number] ADMISSION PERFORMANCE: Independent CODE: 06 BATHING: Not assessed/no information CODE: - DRESSING - UPPER BODY: Not assessed/no information CODE: - DRESSING - LOWER BODY: Not assessed/no information CODE: - PUTTING ON/TAKING OFF FOOTWEAR: Not assessed/no information CODE: - ROLL LEFT AND RIGHT: ROLL LEFT AND RIGHT - STEP 1: Does the patient complete the activity by him/herself with no assistance (physical, verbal/nonverbal cueing, setup/clean-up)? Yes. 1. [id number] ADMISSION PERFORMANCE: Independent CODE: 06 SIT TO LYING: SIT TO LYING - STEP 1: Does the patient complete the activity by him/herself with no assistance (physical, verbal/nonverbal cueing, setup/clean-up)? Yes. 1. [id number] ADMISSION PERFORMANCE: Independent CODE: 06 LYING TO SITTING: LYING TO SITTING ON SIDE OF BED - STEP 1: Does the patient complete the activity by him/herself with no assistance (physical, verbal/nonverbal cueing, setup/clean-up)? Yes. 1. [id number] ADMISSION PERFORMANCE: Independent CODE: 06 SIT TO STAND: SIT TO STAND - STEP 1: Does the patient complete the activity by him/herself with no assistance (physical, verbal/nonverbal cueing, setup/clean-up)? Yes. 1. [id number] ADMISSION PERFORMANCE: Independent CODE: 06 TRANSFERS: BED, CHAIR: CHAIR/[id number] TRANSFER - STEP 1: Does the patient complete the activity by him/herself with no assistance (physical, verbal/nonverbal cueing, setup/clean-up)? Yes. 1. [id number] ADMISSION PERFORMANCE: Independent CODE: 06 TRANSFER TOILET: Not assessed/no information CODE: - TRANSFERS: CAR: Not assessed/no information CODE: - WALK 10 FEET: Not assessed/no information CODE: - 1 STEP (CURB): Not assessed/no information CODE: - PICKING UP OBJECT: Not assessed/no information CODE: - DOES THE PATIENT USE A WHEELCHAIR/SCOOTER? CODE: EXPR WHEEL 50 FEET WITH TWO TURNS: Not assessed/no information CODE: - INDICATE THE TYPE OF WHEELCHAIR/SCOOTER USED: CODE: EXPR WHEEL 150 FEET: Not assessed/no information CODE: - INDICATE THE TYPE OF WHEELCHAIR/SCOOTER USED: CODE: EXPR BLADDER AND BOWEL: H350. BLADDER CONTINENCE (3-DAY ASSESSMENT PERIOD): Always continent (no documented incontinence) CODE: 0 H400. BOWEL CONTINENCE (3-DAY ASSESSMENT PERIOD): Always continent CODE: 0
[2019-06-20] MEDS: PANTOPRAZOLE 40MG TABLET PO SCH (06:26)
[2019-06-20] MEDS: INSULIN -REGULAR HUMAN 50 UNIT/0.5 ML ML SQ SCH ×2 (07:30→11:30)
[2019-06-20 07:50] VITALS: BP 156/77; TEMP 97.2
[2019-06-20] MEDS: LACTULOSE 20 GM/30 ML UCUP PO SCH (08:00)
[2019-06-20] MEDS: carvediloL 12.5 MG TAB PO SCH (08:00)
[2019-06-20] MEDS: PROMOD 30 ML DOSE PO SCH (08:00)
[2019-06-20] MEDS: SEVELAMER CARBONATE 800 MG TABLET PO SCH ×2 (08:01→11:42)
[2019-06-20] MEDS: LIDOCAINE 4% PATCH TOP SCH (08:01)
[2019-06-20] MEDS: METOCLOPRAMIDE 5 MG TAB PO SCH (08:02)
[2019-06-20] MEDS: GABAPENTIN 300 MG CAP PO SCH (08:02)
[2019-06-20] MEDS: HYDROCODONE/APAP 10/325 TAB PO PRN (08:02)
[2019-06-20] MEDS: SERTRALINE HCL 50 MG TAB PO SCH (08:02)
[2019-06-20] MEDS: HYDRALAZINE HCL 25 MG TABLET PO SCH (08:04)
--- NOTE | 2019-06-26 14:22 | R.DS ---
FACILITY [facility] MR# [id number] [facility]# [id number] NAME BILLY PATEL ADDRESS [address] [place] [address] PHONE DATE OF 1955 AGE 63 SSN# [id number] GENDER Male DEXTERITY Right-handed MARITAL STATUS Single (Never ) RACE Black ENCOUNTER PHYSICIAN Dr. Darrell Grimm M.D. REFERRING DOCTOR Scottie Espana REFERRING FACILITY [facility] DISCHARGE DIAGNOSIS: - Medically Complex Conditions 17 - Terminal Care (17.6) ESRD. Right Patella Fracture. 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 ContinueSee attached MAR (Medication Administration Record) Billy Patel.pdf. NURSING: - Shower allowing shower - Lab Results blood Sugar Check ACHS ACTIVITIES OOB only with supervision THERAPIES: - Dietary and Nutrition Adequate Nutrition Nutritional Education Nutritional Supplements HISTORY OF PRESENT ILLNESS: Pt. is a 63 yo Right-handed black male.On 05/27/2019 he was admitted to [facility] with diagnosis ESRD.His impairment category is Medically Complex Conditions 17 - Terminal Care ( 17.6).Pre-morbidly, Pt. was independent/mod-I in Locomotion, Safety Awareness, Balance, Social Cognit ion, Transfers Control, Sphincter Control, Self-Care, Communication, and Endurance; and he had good L ocomotion, Balance, Safety Awareness, Social Cognition, Transfers Control, Sphincter Control, Self-Ca re, Communication, and Endurance.Currently, he has deficits of Locomotion, Balance, Safety Awareness, Social Cognition, Transfers Control, Self-Care, and Endurance.Pt. is now referred to [facility] for acute in-patient rehabilitation in order to maximize patient's functional inde pendence in activities of daily living, strength, ROM, and mobility.- Rehab Goal Patient has realistic goal of being discharged at assistance level 6-Luz Elena to reside at Home with Fam juvenal/Relatives. Billy Patel is a 63 year old male that lives alone in a 2nd floor apartment. On 05/27/2019, he fell 5 days ago and hit his right knee and chest and developed right knee pain associated with swelling and tenderness. He was having difficulty to ambulate and some chest tenderness but he did not lose consciousness after he fell. He missed 1-1/2 weeks of hemodialysis and do not feel good and called 911 and was admitted to [facility] and treated. He is now medically stable but in need of 24-hour nursing, doctor supervision and oversite while receiving acti ve and ongoing intensive (PT, reasonably expected to participate in 3hours of therapy a day/15 hours per week and receive care with an intensive interdisciplinary approach.HOSPITAL COURSE: DIET - LIQUID TEXTURE: On 06/04/2019 Pt was upgraded to Regular Diet - Liquid Texture. DIET - SOLID TEXTURE: On 06/04/2019 Pt was upgraded to Regular Diet - Solid Texture. DIET TYPE: On 06/04/2019 Pt was upgraded to Regular Diet Type. TUBE FEED: On 06/04/2019 Pt was changed to N/A Tube Feed. DISCHARGE PHYSICAL EXAM - Gen Alert and awake Lying in bed No apparent distress Oriented to: person, time, and place - Skin No skin breakdown. Normacephalic - Eyes No abnormalities - ENMT No abnormalities - Neck No abnormalities - CVS RRR - Chest Clear - Abd + bowel sounds - GI Non distended Deferred - No abnormalities - Ext His right leg is in a brace with hemostasis at his surgical site. - MSK 4+/5 weakness in right lower extremity - Neuro 4/5 strength right lower extremity. - Psych No abnormalities FUNCTIONAL STATUS: - Self-Care A. Eating 7-Ind B. Grooming 7-Ind C. Bathing 7-Ind D. Dressing - Upper 7-Ind E. Dressing - Lower 6-Luz Elena F. Toileting 6-Luz Elena - Sphincter Control G. Bladder control 6-Luz Elena H. Bowel control 6-Luz Elena - Transfers Control I. Bed/Chair/Wheelchair 6-Luz Elena J. Toilet 6-Luz Elena K. Tub/Shower 6-Luz Elena - Locomotion L. Walk/Wheelchair (B) 6-Luz Elena M. Stairs 6-uLz Elena - Communication N. Comprehension (B) 6-Luz Elena O. Expression (B) 6-Luz Elena - Social Cognition P. Social Interaction 6-Luz Elena Q. Problem Solving 5-sup R. Memory 5-sup - Endurance Fair - Balance Fair - Safety Awareness Fair QI SCORES: - Self-Care A. Eating 05-Setup or clean-up assistance B. Oral hygiene 05-Setup or clean-up assistance C. Toileting hygiene 04-Supervision or touching assistance E. Shower/bathe self 04-Supervision or touching assistance F. Upper body dressing 04-Supervision or touching assistance G. Lower body dressing 03-Partial/moderate assistance H. Putting on/taking off footwear 03-Partial/moderate assistance - Mobility A. Roll left and right 04-Supervision or touching assistance B. Sit to lying 04-Supervision or touching assistance C. Lying to sitting on side of bed 04-Supervision or touching assistance D. Sit to stand 04-Supervision or touching assistance E. Chair/evp-tg-jwgeu transfer 03-Partial/moderate assistance F. Toilet transfer 03-Partial/moderate assistance G. Car transfer 10-Not attempted due to environmental limitations I. Walk 10 feet 03-Partial/moderate assistance J. Walk 50 feet with two turns 88-Not attempted due to medical condition or safety concerns K. Walk 150 feet 88-Not attempted due to medical condition or safety concerns L. Walking 10 feet on uneven surfaces 88-Not attempted due to medical condition or safety concerns M. 1 step (curb) 88-Not attempted due to medical condition or safety concerns N. 4 steps 88-Not attempted due to medical condition or safety concerns O. 12 steps 88-Not attempted due to medical condition or safety concerns P. Picking up object 88-Not attempted due to medical condition or safety concerns R. Wheel 50 feet with two turns 88-Not attempted due to medical condition or safety concerns S. Wheel 150 feet 88-Not attempted due to medical condition or safety concerns - Bladder and Bowel Bladder continence 5-No urine output Bowel continence 0-Always continent - Endurance Fair - Balance Fair - Safety Awareness Fair DISCHARGE INSTRUCTIONS: - N/A Heparin 6000 units every hemodialysis. DISCHARGE PLAN, FOLLOW UP CARE PROVISIONS: - Estimated Length of Stay (days) 13. - Consensus on plan Discharge plan has been discussed with primary caregiver. Patient/Family is in agreement with the aron n. Primary caregiver is in agreement with the plan. - Patient/Family Goals Return home with assistance. - Planned Living Setting Upon Discharge Home, to live with Family/Relatives. Transitional Living. SIGNATURE PANEL: (LOADER HELPER)
== END 2019-06-20 13:35 | disposition home health service (06) | DRG 683 ==
LOC: 5TH 18:59
PROVIDERS: ADMIT Psychiatry & Neurology Neurology with Special Qualifications in Child Neurology; ATTEND Psychiatry & Neurology Neurology with Special Qualifications in Child Neurology
DX: N18.6 End stage renal disease (principal); N25.81 Secondary hyperparathyroidism of renal origin; I13.2 Hypertensive heart and chronic kidney disease with heart failure and with stage 5 chronic kidney disease, or end stage renal disease; E85.81 Light chain (AL) amyloidosis; F14.20 Cocaine dependence, uncomplicated; S82.031D Displaced transverse fracture of right patella, subsequent encounter for closed fracture with routine healing; E11.22 Type 2 diabetes mellitus with diabetic chronic kidney disease; E11.40 Type 2 diabetes mellitus with diabetic neuropathy, unspecified; D63.1 Anemia in chronic kidney disease; I25.10 Atherosclerotic heart disease of native coronary artery without angina pectoris; I50.9 Heart failure, unspecified; E78.5 Hyperlipidemia, unspecified; E87.5 Hyperkalemia; D72.829 Elevated white blood cell count, unspecified; F25.1 Schizoaffective disorder, depressive type; F12.20 Cannabis dependence, uncomplicated; Z86.73 Personal history of transient ischemic attack (TIA), and cerebral infarction without residual deficits; Z99.2 Dependence on renal dialysis
CPT/HCPCS: 36415; 74018; 80048; 80170; 80202; 81001; 82040; 82947; 83735; 84134; 85014; 85018; 85025; 86317; 86704; 86705; 86706; 86850; 86900; 86901; 87086; 87088; 87340; 90935; 97110; 97112; 97116; 97161; 97530; 97542; J1580; J1644; J1650; J1815; J3370; J7030; P9016; Q5105

== ENCOUNTER 2019-09-21 10:11 | Emergency (ER) | payer OTHER ==
--- OUTSIDE RECORDS SUMMARY | 2019-09-21 10:21 | XMS REPORT ---
:1955 Author Organization [facility] t Address [address] [place] [address] Care Team Providers Name Role Phone Unavailable Unavailable Unavailable Problems Condition Condition Condition Status Onset Resolution Last Treatin g Comments Name Details Category Date Date Treatment Clinician Date Type 2 Type 2 Problem Active diabetes diabetes mellitus mellitus with with diabetic diabetic chronic chronic kidney kidney disease disease Cocaine Cocaine Problem Active abuse abuse Acute on Acute on Problem Active chronic chronic diastolic diastolic congestive congestive heart heart failure failure ESRD (end ESRD (end Problem Active stage renal stage renal disease) disease) Dependence Dependence Problem Active on renal on renal dialysis dialysis 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 Gastric Gastric Problem Active ulcer with ulcer with hemorrhage, hemorrhage, unspecified unspecified chronicity chronicity Hepatitis C Hepatitis C Problem Active virus virus infection infection without without hepatic hepatic coma, coma, unspecified unspecified chronicity chronicity Other Other Problem Active congestive congestive heart heart failure failure Diabetes Diabetes Problem Active type 2, type 2, uncontrolle uncontrolle d d Hypertensio Hypertensio Problem Active n n Cerebral Cerebral Problem Active vascular vascular accident accident Pedal edema Pedal edema Problem Active Chronic Chronic Problem Active kidney kidney disease, disease, stage 3 stage 3 (moderate) (moderate) Other Other Diagnosis Active closed closed fracture of fracture of right right patella patella with with routine routine healing, healing, subsequent subsequent encounter encounter Pain, Pain, Diagnosis Active joint, joint, knee, right knee, right Allergies, Adverse Reactions, Alerts Allergy Name Allergy Status Severity Reaction(s) Onset Inactive Treat ing Comments Type Date Date Clinician Corticosteroid Adverse Active anaphylaxis s Reaction Medications Ordered Filled Start Stop Current Ordering Indication Dosage Frequency Signature Comments Components Medication Medication Date Date Medication? Clinician (SIG) Name Name Coreg Coreg Yes Lalo 1 tablet [place] Hydrocodone Hydrocodone Yes Lalo (Sched ule -Acetaminop -Acetaminop [place]ico II Drug) hen hen TAKE 1 TABLET BY MOUTH EVERY 6 HOURS NEEDED Pantoprazol Pantoprazol Yes Lalo TAKE 1 e Sodium e Sodium [place] TABLET BY MOUTH ONCE A DAY Coreg Coreg Yes Lalo 1 tablet [place] HydrALAZINE HydrALAZINE Yes Lalo 1 tabl et HCl HCl Damico with food Adjustable Adjustable Yes Lalo USE WITH Lancing Lancing Damico LANCETS TO Device Device TEST BLOOD GLUCOSE Comfort EZ Comfort EZ Yes Lalo USE TO Insulin Insulin [place] INJECT Syringe Syringe INSULIN TWICE DAILY Amlodipine Amlodipine Yes Lalo TAKE 1 Besylate Besylate [place] TABLET BY MOUTH ONCE A DAY Easy Touch Easy Touch Yes Lalo USE TO Alcohol Alcohol [place] TEST BLOOD Prep Medium Prep Medium GLUCOSE TWICE DAILY Risperidone Risperidone Yes Lalo TAKE 1 [place]ico TABLET BY MOUTH AT BEDTIME Bumetanide Bumetanide Yes Lalo TAKE 1 [place]ico TABLET BY MOUTH EVERY DAY Bumetanide Bumetanide Yes Lalo TAKE 1 [place]ico TABLET BY MOUTH EVERY DAY Lisinopril Lisinopril Yes Lalo TAKE 1 [place]ico TABLET BY MOUTH EVERY DAY Cyclobenzap Cyclobenzap Yes Lalo TAKE 1 rine HCl rine HCl Damico TABLET BY MOUTH 3 TIMES A DAY NEEDED FOR MUSCLE SPASMS Gabapentin Gabapentin Yes Lalo TAKE 1 [place] CAPSULE BY MOUTH THREE TIMES A DAY OneTouch OneTouch Yes Lalo USE TO Ultra 2 Ultra 2 Damico TEST BLOOD GLUCOSE OneTouch OneTouch Yes Lalo USE TO Ultra Test Ultra Test Damico TEST BLOOD GLUCOSE TWICE DAILY Senokot S Senokot S Yes Lalo 1 tablet [place] in the evening as needed Sevelamer Sevelamer Yes Lalo TAKE 2 Carbonate Carbonate Damico TABLETS BY MOUTH 3 TIMES A DAY Tramadol Tramadol Yes Lalo (Schedule HCl HCl Damico IV Drug) TAKE 1 TABLET BY MOUTH 3 TIMES A DAY NEEDED FOR PAIN Folic Acid Folic Acid Yes Lalo 1 tablet [place] Amlodipine Amlodipine Yes Lalo 1 tablet Besylate Besylate Damico Ultram Ultram Yes Lalo 1 tablet [place] as needed Retacrit Retacrit Yes Lalo as Damico directed AquaLance AquaLance Yes Lalo USE TO Lancets 30G Lancets 30G [place]ico TEST BLO OD GLUCOSE TWICE DAILY Hydrochloro Hydrochloro Yes Lalo TAKE 1 thiazide thiazide [place]ico TABLET BY MOUTH EVERY DAY CVS Senna CVS Senna Yes Lalo TAKE 2 Plus Plus Damico TABLETS BY MOUTH AT BEDTIME Furosemide Furosemide Yes Lalo TAKE 1 [place]ico TABLET EVERY DAY Eliquis Eliquis Yes Lalo TAKE 1 [place] TABLET BY MOUTH TWICE A DAY Levemir Levemir Yes Lalo 50 units [place] Atorvastati Atorvastati Yes Lalo TAKE 1 n Calcium n Calcium [place]ico TABLET EVERY DAY Protonix Protonix Yes Lalo 1 tablet [place] Amlodipine Amlodipine Yes Lalo TAKE 1 Besylate Besylate [place]ico TABLET BY MOUTH ONCE A DAY Spironolact Spironolact Yes Lalo 1 tabl et one one [place] Aspirin Aspirin Yes Lalo 1 tablet [place] Metoclopram Metoclopram Yes Lalo TAKE 1 sirena HCl sirena HCl Damico TABLET BY MOUTH EVERY DAY Zolpidem Zolpidem Yes Lalo (Schedule Tartrate Tartrate Damico IV Drug) TAKE 1 TABLET BY MOUTH AT BEDTIME Neurontin Neurontin Yes Lalo TAKE 1 [place]ico CAPSULE BY MOUTH THREE TIMES A DAY Encounters Start End Encounter Admission Attending Care Care Encounter Date/Time Date/Time Type Type Clinicians Facility Department ID 2019-07-19 2019-07-19 Outpatient Kenny Cox 2 [id number] 22:02:00 22:02:00 [facility] 2019-07-16 2019-07-16 Outpatient Kenny Cox 2 [id number] 08:30:00 08:30:00 [facility]
--- OUTSIDE RECORDS SUMMARY | 2019-09-21 10:21 | XMS REPORT ---
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
--- OUTSIDE RECORDS SUMMARY | 2019-09-21 10:21 | XMS REPORT ---
:1955 Author Organization [employer] Care Team Providers Name Role Phone Lalo Damico Provider Role Unavailable Allergies, Adverse Reactions, Alerts Substance Reaction Event Type Corticosteroids anaphylaxis Non Drug Allergy Problems Problem Type Condition Code Onset Dates [...] unspecified chronicity Problem Hepatitis C virus infection B19.20 Active without hepatic coma, unspecified chronicity Problem Other congestive heart failure I50.9 Active Assessment Other closed fracture of right S82.091D Active patella with routine healing, subsequent encounter Assessment Pain, joint, knee, right M25.561 Act andrea Problem Diabetes type 2, uncontrolled E11.65 Active Problem Hypertension I10 Active Problem Cerebral vascular accident I63.9 A ctive Problem Pedal edema R60.9 Active Problem Chronic kidney disease, stage 3 N18.3 Active (moderate) Medications Medication Code Code Instructions Start End Status Dosage System Date Date Coreg [facility] 98255956846 12.5 MG Orally Active 1 tab let Twice a day Hydrocodone-Acetamino [facility] 95344105649 5-325 MG Oral Active (Schedule phen II Drug) TAKE 1 TABLET BY MOUTH EVERY 6 HOURS NEEDED Pantoprazole Sodium [facility] 67027703642 40 MG Oral Activ e TAKE 1 TABLET BY MOUTH ONCE A DAY Carvedilol [facility] 09771680606 12.5 MG Oral Active TAKE 1 TABLET BY MOUTH TWICE A DAY Coreg [facility] 52507387698 12.5 MG Orally Active 1 tab let Twice a day HydrALAZINE HCl [facility] 79018044761 100 MG Orally Active 1 tablet Three times a with food day Adjustable Lancing [facility] 11822078309 - Active U SE WITH Device LANCETS TO TEST BLOOD GLUCOSE Comfort EZ Insulin [facility] 63039228761 31G X 16" 1 Act andrea USE TO Syringe ML INJECT INSULIN TWICE DAILY Amlodipine Besylate [facility] 54077073424 10 MG Active TAKE 1 TABLET BY MOUTH ONCE A DAY Easy Touch Alcohol [facility] 08138171619 70 % Active U SE TO Prep Medium TEST BLOOD GLUCOSE TWICE DAILY Risperidone [facility] 68650995137 1 MG Oral Active TAKE 1 TABLET BY MOUTH AT BEDTIME Bumetanide [facility] 17089215553 1 MG Active TAKE 1 TABLET BY MOUTH EVERY DAY Bumetanide [facility] 90252419611 2 MG Orally Active TAKE 1 every 24 hrs TABLET BY MOUTH EVERY DAY Lisinopril [facility] 70357870518 40 MG Oral Active TAKE 1 TABLET BY MOUTH EVERY DAY Cyclobenzaprine HCl [facility] 60297551589 10 MG Oral Activ e TAKE 1 TABLET BY MOUTH 3 TIMES A DAY NEEDED FOR MUSCLE SPASMS Gabapentin [facility] 72835775678 300 MG Oral Active TAKE 1 CAPSULE BY MOUTH THREE TIMES A DAY OneTouch Ultra 2 [facility] 04279992151 w/Device Active US E TO TEST BLOOD GLUCOSE OneTouch Ultra Test [facility] 52704478486 - Active USE TO TEST BLOOD GLUCOSE TWICE DAILY Senokot S [facility] 84728118115 8.6-50 MG Active 1 tablet Orally Once a in the day evening as needed Bumetanide [facility] 59702772183 1 MG Active TAKE 1 TABLET BY MOUTH EVERY DAY Sevelamer Carbonate [facility] 93578564742 800 MG Oral Acti ve TAKE 2 TABLETS BY MOUTH 3 TIMES A DAY Tramadol HCl [facility] 13848617138 50 MG Oral Active (Morales edule IV Drug) TAKE 1 TABLET BY MOUTH 3 TIMES A DAY NEEDED FOR PAIN Folic Acid [facility] 67376266812 1 MG Orally Active 1 tab let Once a day Amlodipine Besylate [facility] 83862623701 10 MG Orally Act andrea 1 tablet Once a day Bumetanide [facility] 77255859354 1 MG Active TAKE 1 TABLET BY MOUTH EVERY DAY Ultram [facility] 35372331728 50 MG Orally Active 1 table t TID as needed as needed for pain Retacrit [facility] 17371150726 4000 UNIT/ML Active as Injection directed AquaLance Lancets 30G [facility] 05922692052 - Active USE TO TEST BLOOD GLUCOSE TWICE DAILY Coreg [facility] 98620909642 12.5 MG Orally Active 1 tab let Twice a day Hydrochlorothiazide [facility] 92323053410 25 MG Oral Activ e TAKE 1 TABLET BY MOUTH EVERY DAY Amlodipine Besylate [facility] 68503988086 10 MG Active TAKE 1 TABLET BY MOUTH ONCE A DAY CVS Senna Plus [facility] 15473902014 8.6-50 MG Oral Active TAKE 2 TABLETS BY MOUTH AT BEDTIME Furosemide ND 93503225515 40 MG Oral Active TAKE 1 TABLET EVERY DAY Bumetanide [facility] 18685702511 1 MG Active TAKE 1 TABLET BY MOUTH EVERY DAY Eliquis [facility] 98217011895 5 MG Orally Active 1 tablet Twice a day Levemir [facility] 98913550733 100 UNIT/ML Active 50 units Subcutaneous BID Atorvastatin Calcium [facility] 04240383046 80 MG Oral Acti ve TAKE 1 TABLET EVERY DAY Protonix [facility] 63881139233 40 MG Orally Active 1 tabl et Once a day Amlodipine Besylate [facility] 29489317156 10 MG Active TAKE 1 TABLET BY MOUTH ONCE A DAY Spironolactone [facility] 50761972031 50 MG Orally Active 1 tablet Once a day Aspirin [facility] 03930499878 81 MG Orally Active 1 table t Once a day Metoclopramide HCl [facility] 59810812080 5 MG Oral Active TAKE 1 TABLET BY MOUTH EVERY DAY Zolpidem Tartrate [facility] 39582250750 10 MG Oral Active (Schedule IV Drug) TAKE 1 TABLET BY MOUTH AT BEDTIME Neurontin [facility] 19719629533 300 MG Active TAKE 1 CAPSULE BY MOUTH THREE TIMES A DAY Eliquis [facility] 45124223999 5 MG Active TAKE 1 TABLET BY MOUTH TWICE A DAY Results No Known Results Summary Purpose [employer]ClinicalWorks Submission
[2019-09-21] MEDS ORDERED: DIAZEPAM 5 MG TABLET ONE (10:58)
[2019-09-21] MEDS ORDERED: MORPHINE 4 MG/ML SYR ONE (10:58)
[2019-09-21] MEDS ORDERED: ONDANSETRON 4 MG/2 ML VIAL ONE (10:58)
[2019-09-21 11:16] LABS: Absolute Lymphocytes (CBC) 0.7 K/uL (0.7-4.9); Basophils % 0.4 % (0-1.3); Hematocrit 32.5 % (39.6-49.0); Lymphocytes % 4.4 % (15.3-44.8); MPV 8.8 fL (7.6-11.3); RBC Red Blood Cell Count 3.47 M/uL (4.33-5.43)
--- NOTE | 2019-09-21 11:27 | RAD REPORT ---
EXAM DESCRIPTION: CT - Spine Lumbar Wo Con - 09/21/2019 11:09 am CLINICAL HISTORY: Radiculopathy. LOWER BACK PAIN COMPARISON: No comparisons TECHNIQUE: Axial noncontrast CT imaging of the lumbar spine was performed with coronal and sagittal re-formatted images. All CT scans are performed using dose optimization technique as appropriate and may include automated exposure control or mA/KV adjustment according to patient size. FINDINGS: No acute lumbar spine fracture seen. No aggressive marrow pattern or malalignment. Paraspinal tissues are normal in thickness. No paraspinal abscess or hematoma seen. No high-grade canal stenosis suspected. Mild bulging of disc material seen with facet hypertrophy at the L5-S1 level. IMPRESSION: No acute lumbar spine finding.
[2019-09-21 11:45] LABS: Albumin 3.5 g/dL (3.4-5.0); Bilirubin Total 0.2 mg/dL (0.2-1.0); Potassium 4.9 mmol/L (3.5-5.1)
--- NOTE | 2019-09-21 11:50 | RAD REPORT ---
EXAM DESCRIPTION: RAD - Pelvis - 09/21/2019 11:42 am CLINICAL HISTORY: Blunt trauma;Pain COMPARISON: No comparisons FINDINGS: No evidence of acute fracture or dislocation.
--- NOTE | 2019-09-21 12:04 | ER ---
Nurse's Notes [facility] Name: Billy Trejo Age: 64 yrs Sex: Male : 1955 Arrival Date: 09/21/2019 Time: 10:16 Bed 6 Private MD: Diagnosis: Fall (on) (from) other stairs and steps;Type 1 diabetes mellitus;Low back pain;Elevated white blood cell count;Sciatica, right side Presentation: 09/20 10:25 Chief complaint: Patient states: "I was walking upstairs to my apartment on Saturday aa5 after dialysis and I fell but I held on to the rails". Pt reports hitting head on rail, denies LOC. Pt c/o pain to right side of back. 10:25 Acuity: BRAD 4 aa5 10:25 Coronavirus screen: Patient denies a cough. Patient reports shortness of breath or aa5 difficulty breathing. Patient denies measured and/or subjective temperature greater than 100.4F prior to today's visit. Patient denies travel on a cruise ship or to a country the [facility] currently lists as an affected area. Patient denies contact with known and/or suspected case of COVID-19. Pt reports baseline SOB. Ebola Screen: Patient negative for fever greater than or equal to 101.5 degrees Fahrenheit, and additional compatible Ebola Virus Disease symptoms. 10:25 Method Of Arrival: Ambulatory aa5 10:25 Initial Sepsis Screen: Does the patient meet any 2 criteria? No. Patient's initial aa5 sepsis screen is negative. Does the patient have a suspected source of infection? No. Patient's initial sepsis screen is negative. Risk Assessment: Do you want to hurt yourself or someone else? Patient reports no desire to harm self or others. Onset of symptoms was September 2019. Triage Assessment: 10:32 General: Appears in no apparent distress. uncomfortable, Behavior is calm, cooperative, sv appropriate for age. Pain: Complains of pain in lumbar area and right low back. Neuro: Level of Consciousness is awake, alert, obeys commands, Oriented to person, place, time, situation, Gait is steady. Respiratory: Airway is patent Respiratory effort is even, unlabored, Respiratory pattern is regular, symmetrical. Derm: Skin is normal, black. Musculoskeletal: Range of motion: intact in all extremities. Historical: - Allergies: 10:32 Corticosteroids (Glucocorticoids); sv - PMHx: 10:32 "spot on lung"; Anemia; Arthritis; CHF; CVA; Diabetes - IDDM; Dialysis; M,W,F; GERD; GI sv Bleed; High Cholesterol; Hypertension; Pneumonia; - PSHx: 10:32 Dialysis catheter to right side of chest; aa5 - Immunization history:: Adult Immunizations unknown. - Social history:: Smoking status: Patient denies any tobacco usage or history of. - Family history:: not pertinent. Screenin:32 Abuse screen: Denies threats or abuse. Denies injuries from another. Nutritional sv screening: No deficits noted. Tuberculosis screening: No symptoms or risk factors identified. Fall Risk None identified. Assessment: 10:33 Reassessment: Patient appears in no apparent distress at this time. No changes from sv previously documented assessment. See triage assessment. 12:00 Reassessment: Patient appears in no apparent distress at this time. Patient states sv symptoms have improved. 12:30 Reassessment: Patient appears in no apparent distress at this time. No changes from sv previously documented assessment. Vital Signs: 10:31 BP 149 / 83; Pulse 83; Resp 20; Temp 99; Pulse Ox 100% ; sv 11:00 BP 149 / 77; Pulse 76; Resp 17; Pulse Ox 100% ; bp 12:00 Pain 4/10; sv 12:20 BP 150 / 86; Pulse 72; Resp 16; Pulse Ox 100% ; sv ED Course: 10:16 Patient arrived in ED. ag5 10:25 Arm band placed on Patient placed in an exam room, on a stretcher. aa5 10:26 Summer Myrick, MARY is Primary Nurse. sv 10:27 Emerson Marsh MD is Attending Physician. alla 10:32 Triage completed. aa5 10:32 Patient has correct armband on for positive identification. Bed in low position. Call sv light in reach. Pulse ox on. NIBP on. Door closed. Head of bed elevated. 10:33 Awaiting ED provider evaluation. sv 11:05 Inserted saline lock: 22 gauge in right forearm, using aseptic technique. Blood bp collected. 11:10 CT Lumbar Spine Wo Con In Process Unspecified. EDMS 11:43 Pelvis XRAY In Process Unspecified. EDMS 12:04 Irvin Cruz MD is Referral Physician. alla 12:30 No provider procedures requiring assistance completed. IV discontinued, intact, sv bleeding controlled, No redness/swelling at site. Pressure dressing applied. Administered Medications: 11:00 Drug: morphine 4 mg Route: IVP; Site: right forearm; bp 12:00 Follow up: Pain 4/10 Adult; Response: No adverse reaction; Pain is decreased; RASS: sv Alert and Calm (0) 11:00 Drug: Zofran (Ondansetron) 4 mg Route: IVP; Site: right forearm; bp 12:00 Follow up: Response: No adverse reaction sv 11:00 Drug: Valium 5 mg Route: PO; bp 12:00 Follow up: Response: No adverse reaction sv Outcome: 12:04 Discharge ordered by . alla 12:30 Discharged to home via wheelchair. sv 12:30 Condition: stable 12:30 Discharge instructions given to patient, Instructed on discharge instructions, follow up and referral plans. medication usage, Demonstrated understanding of instructions, follow-up care, medications, Prescriptions given X 2. 12:31 Patient left the ED. sv Signatures: Dispatcher [employer] Summer George, RN RN Emerson Hunter MD MD cha Calderon, Audri, RN RN aa5 Navdeep Gunderson RN RN Hilda Pruitt 5
--- NOTE | 2019-09-21 12:05 | EDPHYS ---
Physician Documentation [facility] Name: Billy Trejo Age: 64 yrs Sex: Male : 1955 Arrival Date: 09/21/2019 Time: 10:16 Bed 6 Private MD: Emerson Galindo HPI: 09/20 10:46 This 64 yrs old Black Male presents to ER via Ambulatory with complaints of Back Pain, alla Fall Injury. 10:46 The patient presents with pain that is acute. The symptoms are located in the low back. alla Onset: The symptoms/episode began/occurred 3 day(s) ago. The pain radiates. Associated signs and symptoms: The patient has no apparent associated signs or symptoms. The problem was sustained during a fall, while walking. Modifying factors: The patient symptoms are alleviated by remaining still, the patient symptoms are aggravated by any movement, bending, lifting, movement. Severity of symptoms: At their worst the symptoms were. The patient has not experienced similar symptoms in the past. Historical: - Allergies: 10:32 Corticosteroids (Glucocorticoids); sv - PMHx: 10:32 "spot on lung"; Anemia; Arthritis; CHF; CVA; Diabetes - IDDM; Dialysis; M,W,F; GERD; GI sv Bleed; High Cholesterol; Hypertension; Pneumonia; - PSHx: 10:32 Dialysis catheter to right side of chest; aa5 - Immunization history:: Adult Immunizations unknown. - Social history:: Smoking status: Patient denies any tobacco usage or history of. - Family history:: not pertinent. ROS: 10:46 Constitutional: Negative for fever, chills, and weight loss, Eyes: Negative for injury, alla pain, redness, and discharge, ENT: Negative for injury, pain, and discharge, Neck: Negative for injury, pain, and swelling, Cardiovascular: Negative for chest pain, palpitations, and edema, Respiratory: Negative for shortness of breath, cough, wheezing, and pleuritic chest pain, Abdomen/GI: Negative for abdominal pain, nausea, vomiting, diarrhea, and constipation, : Negative for injury, bleeding, discharge, and swelling, MS/Extremity: Negative for injury and deformity, Skin: Negative for injury, rash, and discoloration, Neuro: Negative for headache, weakness, numbness, tingling, and seizure, Psych: Negative for depression, anxiety, suicide ideation, homicidal ideation, and hallucinations, Allergy/Immunology: Negative for hives, rash, and allergies, Endocrine: Negative for neck swelling, polydipsia, polyuria, polyphagia, and marked weight changes, Hematologic/Lymphatic: Negative for swollen nodes, abnormal bleeding, and unusual bruising. 10:46 Back: Positive for decreased range of motion, pain at rest, pain with movement, radiated pain, of the right low back. Exam: 10:46 Constitutional: This is a well developed, well nourished patient who is awake, alert, alla and in no acute distress. Head/Face: Normocephalic, atraumatic. Eyes: Pupils equal round and reactive to light, extra-ocular motions intact. Lids and lashes normal. Conjunctiva and sclera are non-icteric and not injected. Cornea within normal limits. Periorbital areas with no swelling, redness, or edema. ENT: Nares patent. No nasal discharge, no septal abnormalities noted. Tympanic membranes are normal and external auditory canals are clear. Oropharynx with no redness, swelling, or masses, exudates, or evidence of obstruction, uvula midline. Mucous membranes moist. Neck: Trachea midline, no thyromegaly or masses palpated, and no cervical lymphadenopathy. Supple, full range of motion without nuchal rigidity, or vertebral point tenderness. No Meningismus. Chest/axilla: Normal chest wall appearance and motion. Nontender with no deformity. No lesions are appreciated. Cardiovascular: Regular rate and rhythm with a normal S1 and S2. No gallops, murmurs, or rubs. Normal PMI, no JVD. No pulse deficits. Respiratory: Lungs have equal breath sounds bilaterally, clear to auscultation and percussion. No rales, rhonchi or wheezes noted. No increased work of breathing, no retractions or nasal flaring. Abdomen/GI: Soft, non-tender, with normal bowel sounds. No distension or tympany. No guarding or rebound. No evidence of tenderness throughout. Male : Normal genitalia with no discharge or lesions. Skin: Warm, dry with normal turgor. Normal color with no rashes, no lesions, and no evidence of cellulitis. MS/ Extremity: Pulses equal, no cyanosis. Neurovascular intact. Full, normal range of motion. Neuro: Awake and alert, GCS 15, oriented to person, place, time, and situation. Cranial nerves II-XII grossly intact. Motor strength 5/5 in all extremities. Sensory grossly intact. Cerebellar exam normal. Normal gait. Psych: Awake, alert, with orientation to person, place and time. Behavior, mood, and affect are within normal limits. 10:46 Back: pain, that is moderate, ROM is painful, normal spinal alignment noted, CVA tenderness, is absent, vertebral tenderness, is not appreciated, muscle spasm, is appreciated in the left low back, left mid back, right mid back and right low back. Vital Signs: 10:31 BP 149 / 83; Pulse 83; Resp 20; Temp 99; Pulse Ox 100% ; sv 11:00 BP 149 / 77; Pulse 76; Resp 17; Pulse Ox 100% ; bp 12:00 Pain 4/10; sv 12:20 BP 150 / 86; Pulse 72; Resp 16; Pulse Ox 100% ; sv MDM: 10:27 Patient medically screened. [facility] 10:49 Data reviewed: vital signs, nurses notes, lab test result(s), CBC, electrolytes, alla radiologic studies, CT scan, plain films. 10:49 Differential diagnosis: Fracture Joint Injury Osteoporosis Pyelonephritis spinal alla injury, sprain, vertebral fracture. Data interpreted: school lunch monitor: rate is 83 beats/min, Pulse oximetry: on room air is 100 %. Test interpretation: by ED physician or midlevel provider: plain radiologic studies. Counseling: I had a detailed discussion with the patient and/or guardian regarding: the historical points, exam findings, and any diagnostic results supporting the discharge/admit diagnosis, lab results. 12:04 Medication response: Zofran markedly relieved the patient's nausea. ED course: dw dr alla holloway, send to dialysis now, aware of wbc count elevation. 09/20 10:46 Order name: CBC with Diff; Complete Time: 11:48 [facility] 09/20 10:46 Order name: Comprehensive Metabolic Panel; Complete Time: 12:02 [facility] 09/20 10:46 Order name: CT Lumbar Spine Wo Con; Complete Time: 11:48 [facility] 09/20 10:46 Order name: Pelvis XRAY; Complete Time: 11:58 [facility] Administered Medications: 11:00 Drug: morphine 4 mg Route: IVP; Site: right forearm; bp 12:00 Follow up: Pain 4/10 Adult; Response: No adverse reaction; Pain is decreased; RASS: sv Alert and Calm (0) 11:00 Drug: Zofran (Ondansetron) 4 mg Route: IVP; Site: right forearm; bp 12:00 Follow up: Response: No adverse reaction sv 11:00 Drug: Valium 5 mg Route: PO; bp 12:00 Follow up: Response: No adverse reaction sv Disposition: 09/21/19 12:04 Discharged to Home. Impression: Fall (on) (from) other stairs and steps, Type 1 diabetes mellitus, Low back pain, Elevated white blood cell count, Sciatica, right side. - Condition is Fair. - Discharge Instructions: Back Pain, Adult, Type 1 Diabetes Mellitus, Diagnosis, Adult, Musculoskeletal Pain, Sciatica, Back Injury Prevention, [id number], Back Pain, Adult, [id number], Diabetes Mellitus and Food, Sciatica, [id number], Type 1 Diabetes Mellitus, Self Care, Adult, Type 1 Diabetes Mellitus, Diagnosis, Adult, [id number]-[id number], Type 1 Diabetes Mellitus, Self Care, Adult, Ofge-al-Hncv. - Prescriptions for Tylenol- Codeine #3 300-30 mg Oral Tablet - take 2 tablets by ORAL route every 6 hours As needed; 26 tablet. Valium 2 mg Oral Tablet - take 1 tablet by ORAL route every 8 hours As needed; 20 tablet. - Medication Reconciliation Form, Thank You Letter, Antibiotic Education, Prescription Opioid Use form. - Follow up: Private Physician; When: 2 - 3 days; Reason: Recheck today's complaints, Continuance of care, Re-evaluation by your physician. Follow up: Irvin Cruz; When: Upon discharge from the Emergency Department; Reason: Recheck today's complaints, Continuance of care, Re-evaluation by your physician. - Problem is new. - Symptoms have improved. Signatures: Dispatcher [employer] EDSummer Doe RN RN Emerson Hunter MD MD cha Calderon, Audri RN MARY aa5 Navdeep Gunderson RN RN bp Corrections: (The following items were deleted from the chart) 12:31 12:04 09/21/2019 12:04 Discharged to Home. Impression: Fall (on) (from) other stairs sv and steps; Type 1 diabetes mellitus; Low back pain; Elevated white blood cell count; Sciatica, right side. Condition is Fair. Discharge Instructions: Back Pain, Adult, Type 1 Diabetes Mellitus, Diagnosis, Adult, Musculoskeletal Pain, Sciatica, Back Injury Prevention, [id number]-[id number], Back Pain, Adult, [id number], Diabetes Mellitus and Food, Sciatica, [id number], Type 1 Diabetes Mellitus, Self Care, Adult, Type 1 Diabetes Mellitus, Diagnosis, Adult, [id number]-[id number], Type 1 Diabetes Mellitus, Self Care, Adult, Dyoo-du-Pqau. Prescriptions for Tylenol-Codeine #3 300-30 mg Oral Tablet - take 2 tablets by ORAL route every 6 hours As needed; 26 tablet, Valium 2 mg Oral Tablet - take 1 tablet by ORAL route every 8 hours As needed; 20 tablet. and Forms are Medication Reconciliation Form, Thank You Letter, Antibiotic Education, Prescription Opioid Use. Follow up: Private Physician; When: 2 - 3 days; Reason: Recheck today's complaints, Continuance of care, Re-evaluation by your physician. Follow up: Irvin Cruz; When: Upon discharge from the Emergency Department; Reason: Recheck today's complaints, Continuance of care, Re-evaluation by your physician. Problem is new. Symptoms have improved. alla
[2019-09-21 12:46] VITALS: TEMP 99; O2SAT 100
[2019-09-21 12:50] VITALS: BP 150/86
== END 2019-09-21 12:31 | disposition home or self-care (01) ==
LOC: ER 10:11
DX: M54.31 Sciatica, right side (principal); D72.829 Elevated white blood cell count, unspecified; E10.9 Type 1 diabetes mellitus without complications; W10.9XXA Fall (on) (from) unspecified stairs and steps, initial encounter; Y93.9 Activity, unspecified; Y92.9 Unspecified place or not applicable; Z88.8 Allergy status to other drugs, medicaments and biological substances; Z99.2 Dependence on renal dialysis; I10 Essential (primary) hypertension
CPT/HCPCS: 85025; 36415; 80053; 72131; 72170; 96375; 96374; 99284; J2405

== ENCOUNTER 2019-10-25 23:35 | Inpatient (IN) | payer OTHER ==
--- OUTSIDE RECORDS SUMMARY | 2019-10-25 23:38 | XMS REPORT | Continuity of Care Document ---
:1955 Author Organization [facility] t Address [address] [place] [address] Care Team Providers Name Role Phone Unavailable Unavailable Unavailable Problems Condition Condition Condition Status Onset Resolution Last Treating Co mments Source Name Details Category Date Date Treatment Clinician Date Type 2 Type [address] [facility] diabetes diabetes [facility] - mellitus mellitus Memori a with with l diabetic diabetic Outpat i chronic chronic ent kidney kidney Clinics disease disease Cocaine Cocaine Problem Active [facility] abuse abuse [facility] Clinics Acute on Acute on Problem Active [facility] chronic chronic [facility] - diastolic diastolic Omar kelsea congestive congestive l heart heart Outpati failure failure ent Clinics ESRD (end ESRD (end Problem Active [facility] stage stage [facility] - renal renal Memoria disease) disease) l Outpati ent Clinics Dependence Dependence Problem Active [facility] on renal on renal [facility] - dialysis dialysis Memori a l Outpati ent Clinics 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 l Outpati ent Clinics Gastric Gastric Problem Active [facility] ulcer with ulcer with Lori kes - hemorrhage hemorrhage Me moria , , l unspecifie unspecifie Ou tpati d d ent chronicity chronicity Cl inics Hepatitis Hepatitis Problem Active [facility] C virus C virus [facility] - infection infection Omar kelsea without without l hepatic hepatic Outpati coma, coma, ent unspecifie unspecifie Cl inics d d chronicity chronicity Other Other Problem Active [facility] congestive congestive Lori kes - heart heart Memoria failure failure l Outpati ent Clinics Diabetes Diabetes Problem Active [facility] type 2, type 2, [facility] - uncontroll uncontroll Me moria ed ed l Outpati ent Clinics Hypertensi Hypertensi Problem Active [facility] on on [facility] Cerebral Cerebral Problem [facility] vascular vascular [facility] - accident accident Memori a l Outpati ent Clinics Pedal Pedal Problem Active [facility] edema edema [facility] - Memoria l Outpati ent [facility] Chronic Chronic Problem Active [facility] kidney kidney [facility] - disease, disease, Memori a stage 3 stage 3 l (moderate) (moderate) [facility]u [facility] Clinics Other Other Diagnosis Active [facility] closed closed [facility] - fracture fracture Memori a of right of right l patella patella Outpati with with ent routine routine Clinics healing, healing, subsequent subsequent encounter encounter Pain, Pain, Diagnosis Active [facility] joint, joint, [facility] - knee, knee, Memoria right right l [facility] ent Clinics Allergies, Adverse Reactions, Alerts Allergy Allergy Status Severity Reaction(s) Onset Inactive Treating Comm ents Source Name Type Date Date Clinician Corticos Adverse Active anaphylaxis [facility] teroids Reaction [facility] ent [facility] Medications Ordered Filled Start Stop Current Ordering Indication Dosage Frequency Signature Comments Components Source Medication Medication Date Date Medication? Clinician (SIG) Name Name Coreg Coreg Yes Lalo [address] [facility] [place] [facility] ent [facility] Hydrocodone Hydrocodone Yes Lalo (Schedule [facility] -Acetaminop -Acetaminop [place] II Drug) Cris - chantelle lockhart TAKE 1 [facility] NEEDED Pantoprazol Pantoprazol Yes Lalo TAKE [address] [facility] e Sodium e Sodium [place] TABLET BY Lori kes - MOUTH ONCE Memoria A DAY [facility] ent [facility] Coreg Coreg Yes Lalo [address] [facility] [place] [facility] ent [facility] HydrALAZINE HydrALAZINE Yes Lalo [address] [facility] HCl HCl [place] with food [facility] ent [facility] Adjustable Adjustable Yes Lalo USE WITH [facility] Lancing Lancing [place] LANCETS TO Contre[facility] es - Device Device TEST BLOOD Memor ia GLUCOSE [facility] ent [facility] Comfort EZ Comfort EZ Yes Lalo USE TO [facility] Insulin Insulin [place] INJECT [facility] - Syringe Syringe INSULIN Memori a TWICE l DAILY [facility] Amlodipine Amlodipine Yes Lalo TAKE [address] [facility] Besylate Besylate [place] TABLET BY Lori kes - MOUTH ONCE Memoria A DAY [facility] ent [facility] Easy Touch Easy Touch Yes Lalo USE TO [facility] Alcohol Alcohol [place] TEST BLOOD [facility]re[facility] es - Prep Medium Prep Medium GLUCOSE Memoria TWICE l DAILY [facility] Risperidone Risperidone Yes Lalo TAKE [address] [facility] [place] TABLET BY [facility] - MOUTH AT [facility] BEDTIME [facility] ent [facility] Bumetanide Bumetanide Yes Lalo TAKE [address] [facility] [place] TABLET BY [facility] - MOUTH Memoria EVERY DAY l Outpati ent Clinics Bumetanide Bumetanide Yes Lalo TAKE [address] [facility] [place] TABLET BY [facility] - MOUTH Memoria EVERY DAY l Outpati ent Clinics Lisinopril Lisinopril Yes Lalo TAKE [address] [facility] [place] TABLET BY [facility] - MOUTH Memoria EVERY DAY l Outpati ent Clinics Cyclobenzap Cyclobenzap Yes Lalo TAKE [address] [facility] rine HCl rine HCl [place] TABLET BY Lori kes - MOUTH 3 Memoria TIMES A l DAY Outpati NEEDED FOR ent MUSCLE Clinics SPASMS Gabapentin Gabapentin Yes Lalo TAKE [address] [facility] [place] CAPSULE BY [facility]ukes - MOUTH Memoria THREE l TIMES A Outpati DAY ent Clinics OneTouch OneTouch Yes Lalo USE TO [facility] Ultra 2 Ultra 2 [place] TEST BLOOD [facility]re[facility] es - GLUCOSE Memoria l Outpati ent Clinics OneTouch OneTouch Yes Lalo USE TO [facility] Ultra Test Ultra Test [place] TEST BLOOD [facility] Clinics Senokot S Senokot S Yes Lalo [address] [facility] [place] in the [facility]ukes - evening as Memoria needed l Outpati ent Clinics [facility] Yes Lalo TAKE [address] [facility] Carbonate Carbonate [place] TABLETS BY [facility] - MOUTH 3 Memoria TIMES A l DAY Outpati ent Clinics Tramadol Tramadol Yes Lalo (Schedule [facility] HCl HCl [place] IV Drug) [facility] - TAKE 1 Memoria TABLET BY l MOUTH 3 Outpati TIMES A ent DAY Clinics NEEDED FOR PAIN Folic Acid Folic Acid Yes Lalo [address] [facility] [place] [facility] ent Clinics Amlodipine Amlodipine Yes Lalo [address] [facility] Besylate Besylate [place] [facility] l Outpati ent Clinics Ultram Ultram Yes Lalo [address] [facility] [place] as needed [facility] Outpat[facility] Clinics Retacrit Retacrit Yes Lalo as [facility] [place] directed [facility] - [facility] l Outpati ent Clinics AquaLance AquaLance Yes Lalo USE TO [facility] Lancets 30G Lancets 30G [place] TEST BLOOD [facility]ukes - GLUCOSE Memoria TWICE l DAILY Outpati ent Clinics Hydrochloro Hydrochloro Yes Lalo TAKE [address] [facility] thiazide thiazide [place] TABLET BY Lori kes - MOUTH Memoria EVERY DAY l Outpati ent Clinics CVS Senna CVS Senna Yes Lalo TAKE [address] [facility] Plus Plus [place] TABLETS BY [facility] - MOUTH AT [facility] BEDTIME l [facility] Clinics Furosemide Furosemide Yes Lalo TAKE [address] [facility] [place] TABLET [facility] - EVERY DAY [facility] ent Clinics Eliquis Eliquis Yes Lalo TAKE [address] [facility] [place] TABLET BY [facility]ukes - MOUTH Memoria TWICE A l DAY [facility] Clinics Levemir Levemir Yes Lalo [address] [place] [facility] Atorvastati Atorvastati Yes Lalo TAKE [address] [facility] n Calcium n Calcium [place] TABLET [facility]re[facility] es - EVERY DAY [facility] Protonix Protonix Yes Lalo [address] [facility] [place] [facility]ics Amlodipine Amlodipine Yes Lalo TAKE [address] [facility] Besylate Besylate [place] TABLET BY Lori kes - MOUTH ONCE Memoria A DAY [facility] ent Clinics Spironolact Spironolact Yes Lalo [address] [facility] one one [place] [facility]ics Aspirin Aspirin Yes Lalo [address] [facility] [place] [facility]ics Metoclopram Metoclopram Yes Lalo TAKE [address] [facility] sirena HCl sirena HCl [place] TABLET BY Luke s - MOUTH Memoria EVERY DAY l [facility] ent Clinics Zolpidem Zolpidem Yes Lalo (Schedule [facility] Tartrate Tartrate [place] IV Drug) Contreras es - TAKE 1 Memoria TABLET BY l MOUTH AT [facility] BEDTIME ent Clinics Neurontin Neurontin Yes Lalo TAKE [address] [facility] [place] CAPSULE BY [facility] - MOUTH Memoria THREE l TIMES A [facility] DAY ent Clinics Procedures This patient has no known procedures. Encounters Start End Encounter Admission Attending Care Care Encounter Source Date/Time Date/Time Type Type Clinicians Facility Department ID 2019-07-19 2019-07-19 Outpatient Becky Cox [id number] [facility] 22:02:00 22:02:00 t [facility] and [facility] - [facility] 2019-07-16 2019-07-16 Outpatient Becky Penat [id number] [facility] 08:30:00 08:30:00 t [facility] and [facility] Joint [facility] Clinic [facility] ent [facility] Results This patient has no known results.
[2019-10-25] MEDS ORDERED: NITROGLYCERIN 0.4 MG/TAB SL ONE (23:59)
[2019-10-26 00:13] LABS: Protime INR 1.24
[2019-10-26 00:14] LABS: Absolute Lymphocytes (CBC) 0.8 K/uL (0.7-4.9); Basophils % 0.4 % (0-1.3); Hematocrit 32.8 % (39.6-49.0); Lymphocytes % 4.5 % (15.3-44.8); MPV 9.7 fL (7.6-11.3); RBC Red Blood Cell Count 3.56 M/uL (4.33-5.43)
[2019-10-26 01:05] LABS: Blood Morphology Comment NOTED (NOT SEEN); Ovalocytes 2+; Platelet Estimate ADEQ; Teardrop Cell 1+
[2019-10-26 01:12] LABS: ALT/SGPT 25 U/L (12-78); AST/SGOT 31 U/L (15-37); Albumin 3.4 g/dL (3.4-5.0); Alkaline Phosphatase 77 U/L (45-117); BUN Blood Urea Nitrogen 52 mg/dL (7-18); Bicarbonate 19 mmol/L (21-32); Bilirubin Direct < 0.1 mg/dL (0-0.2); Bilirubin Total 0.3 mg/dL (0.2-1.0); Glucose Level 85 mg/dL (74-106); Magnesium 1.7 mg/dL (1.8-2.4); NT PRO-BNP 7258 pg/mL (<125); Potassium 5.5 mmol/L (3.5-5.1); Sodium Level 142 mmol/L (136-145)
[2019-10-26 01:13] LABS: Troponin (Emerg Dept Use Only) 1.39 ng/mL (0.0-0.045)
--- NOTE | 2019-10-26 01:25 | EDPHYS ---
Physician Documentation [facility] Name: Billy Trejo Age: 64 yrs Sex: Male : 1955 Arrival Date: 10/25/2019 Time: 23:42 Bed 7 Private MD: ED Physician Naseem Hoyt HPI: 10/24 23:48 This 64 yrs old Black Male presents to ER via Unassigned with complaints of Chest Pain. cp 23:48 The patient or guardian reports chest pain that is located primarily in the left side. cp 23:48 Onset: gradually. cp 23:48 Associated signs and symptoms: Pertinent positives: abdominal pain, Pertinent cp negatives: cough, shortness of breath, vomiting. The chest pain is described as aching. Duration: The patient or guardian reports a single episode, that is still ongoing. Historical: - Allergies: 23:49 Corticosteroids (Glucocorticoids); rr5 - PMHx: 23:49 "spot on lung"; Anemia; Arthritis; CHF; CVA; Diabetes - IDDM; Dialysis; M,W,F; GERD; GI rr5 Bleed; High Cholesterol; Hypertension; Pneumonia; - PSHx: 23:49 Knee surgery; rr5 - Immunization history:: Adult Immunizations not up to date. - Social history:: Smoking status: unknown Patient/guardian denies using alcohol, street drugs, tobacco products. ROS: 23:55 Cardiovascular: Positive for chest pain, Negative for palpitations. cp 23:55 Constitutional: Negative for fever. cp 23:55 ENT: Negative for ear pain, sore throat. 23:55 Respiratory: Negative for cough, shortness of breath, wheezing. 23:55 Abdomen/GI: Positive for abdominal pain, Negative for nausea, vomiting, and diarrhea. 23:55 Back: Negative for pain at rest, pain with movement. 23:55 Neuro: Negative for altered mental status, headache, weakness. 23:55 All other systems are negative. cp Exam: 23:48 ECG was reviewed by the Attending Physician. cp 23:58 Constitutional: The patient appears in no acute distress, alert, awake, cp non-diaphoretic, non-toxic, well developed, well nourished. 23:58 Head/Face: Normocephalic, atraumatic. cp 23:58 Eyes: Periorbital structures: appear normal, Pupils: equal, round, and reactive to light and accomodation, Extraocular movements: intact throughout, Conjunctiva: normal, no exudate, no injection, Sclera: no appreciated abnormality, Lids and lashes: appear normal, bilaterally. 23:58 ENT: External ear(s): are unremarkable, Nose: is normal, Mouth: Lips: moist, Oral mucosa: pink and intact, moist, Posterior pharynx: is normal, airway is patent, no erythema, no exudate. 23:58 Neck: ROM/movement: is normal, is supple. 23:58 Chest/axilla: Inspection: normal, Palpation: is normal, no crepitus, no tenderness. 23:58 Cardiovascular: Rate: normal, Rhythm: regular, Edema: ankle edema, that is mild. 23:58 Respiratory: the patient does not display signs of respiratory distress, Respirations: normal, no use of accessory muscles, no retractions, labored breathing, is not present, Breath sounds: bronchial sounds, that are mild, are heard diffusely, stridor, is not appreciated, wheezing: is not appreciated. 23:58 Abdomen/GI: Inspection: abdomen appears normal, Bowel sounds: active, all quadrants, Palpation: soft, in all quadrants, mild abdominal tenderness, in the right lower quadrant and left lower quadrant, rebound tenderness, is not appreciated, voluntary guarding, is not appreciated, involuntary guarding, is not appreciated. 23:58 Neuro: Orientation: to person, place \\T\\ time. Mentation: is normal. Vital Signs: 23:40 BP 163 / 137; Pulse 82; Resp 20; Temp 98.6; Pulse Ox 100% ; Weight 78.93 kg; Height 5 rr5 ft. 11 in. (180.34 cm); Pain 8/10; 10/25 00:32 BP 186 / 97; Pulse 75; Resp 18; Pulse Ox 100% on R/A; mg2 00:55 BP 180 / 87; Pulse 75; Resp 18; Pulse Ox 100% on R/A; mg2 01:36 Weight 77 kg (M); rr5 02:00 BP 171 / 85; Pulse 79; Resp 17; Pulse Ox 98% on R/A; rr5 03:00 BP 172 / 84; Pulse 75; Resp 20; Pulse Ox 100% ; rr5 01:36 Body Mass Index 23.68 (77.00 kg, 180.34 cm) rr5 [place] Coma Score: 02:00 Eye Response: spontaneous(4). Verbal Response: oriented(5). Motor Response: obeys rr5 commands(6). Total: 15. MDM: 10/24 23:52 Patient medically screened. cp 10/24 23:42 Order name: Basic Metabolic Panel; Complete Time: 01:14 mg2 10/25 01:14 Interpretation: Normal except: CRE 6.61; CO2 19; CL 116; K 5.5; BUN 52; GFR 10; CA 7.6. tw4 10/24 23:42 Order name: CBC with Diff; Complete Time: 01:14 mg2 10/25 00:26 Interpretation: Normal except: WBC 17.1; RBC 3.56; HGB 10.5; HCT 32.8; MCHC 31.9; PLT cp 130; RDW 15.7; TANNA% 88.8; LYM% 4.5; NEUT A 15.2. 10/24 23:42 Order name: LFT's; Complete Time: 04:31 mg2 10/24 23:42 Order name: Magnesium; Complete Time: 04:31 mg2 10/24 23:42 Order name: NT PRO-BNP; Complete Time: 04:31 mg2 10/24 23:42 Order name: PT-INR; Complete Time: 00:25 mg2 10/25 01:15 Interpretation: Normal except: PT 14.6. tw4 10/24 23:42 Order name: Troponin (emerg Dept Use Only); Complete Time: :14 mg2 10/25 01:14 Interpretation: Normal except: TROPED 1.39. tw4 10/24 23:42 Order name: XRAY Chest (1 view) mg2 10/24 23:53 Order name: Glucose, Ancillary Testing; Complete Time: 00:25 EDMS 10/25 00:16 Order name: Manual Differential; Complete Time: :14 EDMS 10/25 01:15 Interpretation: Normal except: SEGS 88; BANDS [F] 3; LYM 5. tw4 10/24 23:42 Order name: EKG; Complete Time: 23:43 mg2 10/24 23:42 Order name: Cardiac monitoring; Complete Time: 23:42 mg2 10/24 23:42 Order name: EKG - Nurse/Tech; Complete Time: 23:42 mg2 10/24 23:42 Order name: IV Saline Lock; Complete Time: 23:42 mg2 10/24 23:42 Order name: Labs collected and sent; Complete Time: 23:42 mg2 10/24 23:42 Order name: O2 Per Protocol; Complete Time: 23:42 mg2 10/24 23:42 Order name: O2 Sat Monitoring; Complete Time: 23:42 mg2 EC:48 Rate is 81 beats/min. Rhythm is regular. NM interval is normal. QRS interval is normal. cp QT interval is normal. T waves are Inverted in leads aVL, aVR. Interpreted by me. Reviewed by me. Administered Medications: 23:54 Drug: Nitroglycerin 0.4 mg Route: Sublingual; rr5 10/25 00:33 Drug: Nitroglycerin 0.4 mg Route: Sublingual; rr5 01:30 Follow up: Response: No adverse reaction rr5 01:39 Drug: morphine 2 mg Route: IVP; Site: right antecubital; mg2 02:40 Follow up: Response: No adverse reaction; RASS: Alert and Calm (0) rr5 01:39 Drug: Nitro-Bid Ointment 2 % 0.5 inches Route: Transdermal; Site: anterior chest wall; mg2 01:40 Drug: Heparin ([place]-Bolus No thrombolytic) - HEParin 60 units/kg {Co-Signature: mg2 rr5 (Johnnie Sierra RN).} Route: IVP; Site: right antecubital; 02:40 Follow up: Response: No adverse reaction rr5 01:42 Drug: Heparin ([place] Drip) 12 units/kg/hr - (HEParin 64866 units, D5W 500 ml) rr5 {Co-Signature: mg2 (Johnnie Sierra RN).} Route: IV; Rate: calculated rate; Site: right antecubital; 03:05 Follow up: Response: No adverse reaction; IV Status: Infusion continued upon admission rr5 Disposition: 10/26/19 01:24 Hospitalization ordered by Ian Alvarenga for Inpatient Admission. Preliminary diagnosis are Non-ST elevation (NSTEMI) myocardial infarction, Chronic kidney disease, stage 5, Hyperkalemia. - Bed requested for Telemetry/MedSurg (Inpatient). - Status is Inpatient Admission. rr5 - Condition is Stable. - Problem is new. - Symptoms are unchanged. Addendum: 10/27/2019 07:02 Co-signature as Attending Physician, Naseem Hoyt MD I agree with the assessment and t w4 plan of care. Signatures: Dispatcher [employer] EDEmerson Angeles PA PA cp Garcia, Cindy, RN RN Naseem Hoyt MD MD tw4 Johnnie Sierra RN RN mg2 Juan R Jenkins RN RN rr5 Johnnie Sierra RN mg2 Corrections: (The following items were deleted from the chart) 10/25 02:45 01:24 Hospitalization Ordered by Ian Alvarenga for Inpatient Admission. Preliminary cg diagnosis is Non-ST elevation (NSTEMI) myocardial infarction; Chronic kidney disease, stage 5; Hyperkalemia. Bed requested for Telemetry/MedSurg (Inpatient). Status is Inpatient Admission. Condition is Stable. Problem is new. Symptoms are unchanged. tw4 03:09 02:45 10/26/2019 01:24 Hospitalization Ordered by Ian Alvarenga for Inpatient rr5 Admission. Preliminary diagnosis is Non-ST elevation (NSTEMI) myocardial infarction; Chronic kidney disease, stage 5; Hyperkalemia. Bed requested for Telemetry/MedSurg (Inpatient). Status is Inpatient Admission. Condition is Stable. Problem is new. Symptoms are unchanged. cg
--- NOTE | 2019-10-26 01:25 | ER ---
Nurse's Notes [facility] Name: Billy Trejo Age: 64 yrs Sex: Male : 1955 Arrival Date: 10/25/2019 Time: 23:42 Bed 7 Private MD: Diagnosis: Non-ST elevation (NSTEMI) myocardial infarction;Chronic kidney disease, stage 5;Hyperkalemia Presentation: 10/24 23:40 Chief complaint: EMS states: complaining of left sided chest pain radiating to left rr5 side of the ribs area. glucose checked 57 mg/Dl oral glucose given at 2319H. dialysis patient. 23:40 Coronavirus screen: Proceed with normal triage. Ebola Screen: Patient negative for rr5 fever greater than or equal to 101.5 degrees Fahrenheit, and additional compatible Ebola Virus Disease symptoms Patient denies exposure to infectious person. Patient denies travel to an Ebola-affected area in the 21 days before illness onset. Initial Sepsis Screen: Does the patient meet any 2 criteria? No. Patient's initial sepsis screen is negative. Does the patient have a suspected source of infection? No. Patient's initial sepsis screen is negative. Risk Assessment: Do you want to hurt yourself or someone else? Patient reports no desire to harm self or others. Onset of symptoms was October 25, 2019. 23:40 Method Of Arrival: EMS: [facility] rr5 23:40 Acuity: BRAD 3 rr5 23:40 Note missed his dialysis 2 weeks ago, schedule of dialysis MWF. rr5 Historical: - Allergies: 23:49 Corticosteroids (Glucocorticoids); rr5 - PMHx: 23:49 "spot on lung"; Anemia; Arthritis; CHF; CVA; Diabetes - IDDM; Dialysis; M,W,F; GERD; GI rr5 Bleed; High Cholesterol; Hypertension; Pneumonia; - PSHx: 23:49 Knee surgery; rr5 - Immunization history:: Adult Immunizations not up to date. - Social history:: Smoking status: unknown Patient/guardian denies using alcohol, street drugs, tobacco products. Screenin:45 Abuse screen: Denies threats or abuse. Denies injuries from another. Nutritional mg2 screening: No deficits noted. Tuberculosis screening: No symptoms or risk factors identified. Fall Risk IV access (20 points). Gait- Weak (10 pts.). Assessment: 23:42 General: Appears in no apparent distress. comfortable, Behavior is calm, cooperative. mg2 Pain: Complains of pain in bilateral flank and left chest. Neuro: Level of Consciousness is awake, alert, obeys commands, Oriented to person, place, time, situation. Cardiovascular: Reports chest pain, Capillary refill < 3 seconds. Respiratory: Airway is patent Respiratory effort is even, unlabored, Respiratory pattern is regular, symmetrical. GI:. GI: Reports vomiting, once yesterday. : No signs and/or symptoms were reported regarding the genitourinary system. EENT: No signs and/or symptoms were reported regarding the EENT system. Derm: Skin is intact, is healthy with good turgor, Skin is pink, warm \\T\\ dry. normal. Musculoskeletal: Circulation, motion, and sensation intact. Capillary refill < 3 seconds. 23:42 Pain: Pain radiates to left lateral anterior chest Pain currently is 8 out of 10 on a rr5 pain scale. Quality of pain is described as aching, Pain began gradually, Is intermittent. 10/25 00:30 Reassessment: Patient appears in no apparent distress at this time. second dose of GTN rr5 given SL. Patient states symptoms have not improved. 00:46 Reassessment: Patient appears in no apparent distress at this time. Patient is alert, rr5 oriented x 3, equal unlabored respirations, skin warm/dry/pink. Patient states feeling better. Patient states symptoms have improved. 01:47 Reassessment: Patient appears in no apparent distress at this time. Patient is alert, rr5 oriented x 3, equal unlabored respirations, skin warm/dry/pink. hospitalist at bedside examining the patient. 02:20 Reassessment: Patient appears in no apparent distress at this time. Patient is alert, rr5 oriented x 3, equal unlabored respirations, skin warm/dry/pink. awaiting for room assignment. Vital Signs: 10/24 23:40 BP 163 / 137; Pulse 82; Resp 20; Temp 98.6; Pulse Ox 100% ; Weight 78.93 kg; Height 5 rr5 ft. 11 in. (180.34 cm); Pain 8/10; 10/25 00:32 BP 186 / 97; Pulse 75; Resp 18; Pulse Ox 100% on R/A; mg2 00:55 BP 180 / 87; Pulse 75; Resp 18; Pulse Ox 100% on R/A; mg2 01:36 Weight 77 kg (M); rr5 02:00 BP 171 / 85; Pulse 79; Resp 17; Pulse Ox 98% on R/A; rr5 03:00 BP 172 / 84; Pulse 75; Resp 20; Pulse Ox 100% ; rr5 01:36 Body Mass Index 23.68 (77.00 kg, 180.34 cm) rr5 Nasir Coma Score: 02:00 Eye Response: spontaneous(4). Verbal Response: oriented(5). Motor Response: obeys rr5 commands(6). Total: 15. ED Course: 10/24 23:42 Patient arrived in ED. mg2 23:43 Juan R Jenkins, RN is Primary Nurse. rr5 23:45 Emerson Soares PA is PHCP. cp 23:45 Naseem Hoyt MD is Attending Physician. cp 23:45 Patient has correct armband on for positive identification. Door closed. Warm blanket mg2 given. 23:45 No provider procedures requiring assistance completed. Inserted saline lock: 20 gauge mg2 in right antecubital area, using aseptic technique. Blood collected. by MARY Pete. 23:48 Triage completed. rr5 23:49 potline monitor on. Pulse ox on. NIBP on. rr5 10/25 00:00 Patient maintains SpO2 saturation greater than 95% on room air. rr5 00:09 XRAY Chest (1 view) In Process Unspecified. EDMS 00:33 Arm band placed on. mg2 01:12 Notified ED physician of a critical lab result(s). Creatinine 6.61, Troponin 1.39. lp1 01:24 Ian Alvarenga is Hospitalizing Provider. tw4 03:05 Patient admitted, IV remains in place. intact, No redness/swelling at site. rr5 Administered Medications: 10/24 23:54 Drug: Nitroglycerin 0.4 mg Route: Sublingual; rr5 10/25 00:33 Drug: Nitroglycerin 0.4 mg Route: Sublingual; rr5 01:30 Follow up: Response: No adverse reaction rr5 01:39 Drug: morphine 2 mg Route: IVP; Site: right antecubital; mg2 02:40 Follow up: Response: No adverse reaction; RASS: Alert and Calm (0) rr5 01:39 Drug: Nitro-Bid Ointment 2 % 0.5 inches Route: Transdermal; Site: anterior chest wall; mg2 01:40 Drug: Heparin (WI-Bolus No thrombolytic) - HEParin 60 units/kg {Co-Signature: mg2 rr5 (Johnnie Sierra RN).} Route: IVP; Site: right antecubital; 02:40 Follow up: Response: No adverse reaction rr5 01:42 Drug: Heparin (WI Drip) 12 units/kg/hr - (HEParin 88941 units, D5W 500 ml) rr5 {Co-Signature: mg2 (Johnnie Sierra RN).} Route: IV; Rate: calculated rate; Site: right antecubital; 03:05 Follow up: Response: No adverse reaction; IV Status: Infusion continued upon admission rr5 Intake: 02:20 PO: 200ml (Coffee); Total: 200ml. rr5 Output: 02:00 Urine: 150ml (Voided); Total: 150ml. rr5 Outcome: 01:24 Decision to Hospitalize by Provider. tw4 03:00 Admitted to Med/surg accompanied by nurse, via stretcher, room 221, with chart, Report rr5 called to [place] 03:00 Condition: stable 03:00 Instructed on the need for admit. 03:09 Patient left the ED. rr5 Signatures: Dispatcher [employer] EDMS Jennifer Moscoso, RN RN lp1 Emerson Soares PA PA cp Wadley, Terrence, MD MD tw4 Johnnie Sierra RN RN mg2 Juan R Jenkins RN RN rr5 Johnnie Sierra RN mg2
[2019-10-26] MEDS ORDERED: HEPARIN/D5W 25,000 UNIT/500 ML BAG IV ONE (01:34)
[2019-10-26] MEDS ORDERED: NITROGLYCERIN 1 GM PKT TD ONE (01:34)
[2019-10-26] MEDS ORDERED: HEPARIN 5000 UNIT/ML 1 ML VIAL ONE ×3 (01:34→12:40)
[2019-10-26] MEDS ORDERED: MORPHINE 2 MG/ML SYR ONE (01:37)
--- NOTE | 2019-10-26 02:06 | P.HP ---
Certification for Inpatient Patient admitted to: Inpatient With expected LOS: >2 Midnights Practitioner: I am a practitioner with admitting privileges, knowledge of patient current condition, hospital course, and medical plan of care. Services: Services provided to patient in accordance with Admission requirements found in Title 42 Section 412.3 of the Code of Federal Regulations Patient History Date of Service: 10/26/19 Reason for admission: Chest pain, generalized body pain History of Present Illness: 64-year-old gentleman with a history of end-stage renal disease on hemodialysis, history of congestive heart failure, diabetes mellitus type 2 presented emergency department with a complaint of chest pain of onset yesterday. Patient described anterior chest pain, maximum intensity 7/10, no relieving or aggravating factors. Symptoms also associated with generalized body aches. Patient denied any fever or chills. He stated he has missed dialysis for 2 weeks. His adon is Dr. Cruz. His initial troponin is elevated. EKG demonstrated sinus rhythm with occasional supraventricular complexes. He has leukocytosis. Chest x-ray reviewed and noting increased interstitial markings compared to previous study. Patient is admitted for further management. Allergies Corticosteroids (Glucocorticoids) Allergy (Verified 06/05/19 01:33) Anaphylaxis Home Medications: Gabapentin 300 mg PO BID 03/13/18 Pantoprazole Sodium [Protonix] 40 mg PO DAILY 03/13/18 carvediloL [Coreg*] 12.5 mg PO BID 03/13/18 Metoclopramide HCl 5 mg PO DAILY 04/26/19 Sevelamer Carbonate 800 mg PO SEECOM 04/26/19 Acetaminophen with Codeine [Acetaminophen-Cod #3 Tablet] 2 tab PO Q8HP PRN 05/25/19 Cyclobenzaprine [Flexeril*] 0.5 tab PO TIDP PRN 05/25/19 Insulin Glargine Human [Lantus*] 6 units SQ BEDTIME #1 vial 06/04/19 traMADol HCL [Ultram*] 50 mg PO TID PRN tab 06/04/19 Hydralazine [Apresoline*] 50 mg PO TID 06/05/19 Zolpidem Tartrate [Ambien*] 10 mg PO BEDTIME 06/05/19 Docusate/Senna [Senokot-S*] 2 tab PO BEDTIME tab 06/19/19 Epoetin [Retacrit] 4,000 unit IV EVERY HD vial 06/19/19 Heparin [Heparin 1,000 units/mL *] 2,000 unit IV EVERY HD PRN vial 06/19/19 Heparin [Heparin 1,000 units/mL *] 6,000 unit IV EVERY HD PRN vial 06/19/19 - Past Medical/Surgical History Diabetic: Yes -: HTN -: IDDM (states does not use insulin, has order for Lantus ) -: Arthritis -: high cholesterol -: cva- 2014 -: anemia -: drug abuse -: CHF -: ESRD- on HD MWF -: blood clot in arm -: GERD -: pneumonia -: colonoscopy -: EGD -: tessio right upper chest -: R knee partial patellectomy w/ patellar tendon repair 06/01/19 - Family History Father -: Cancer Notes: NO REAL HISTORY IS KNOWN OTHER THAN WHAT WAS TOLD TO HIM Mother -: Hypertension, Cancer Notes: NO REAL HISTORY KNOWN OTHER THAN WHAT WAS TOLD TO HIM - Social History Alcohol use: No CD- Drugs: No Caffeine use: Yes Review of Systems Other: He denied any nausea or vomiting or diarrhea. Except as documented, all other systems reviewed and negative. Physical Examination - Physical Exam General: Alert, In no apparent distress HEENT: Normocephalic, PERRLA, Mucous membr. moist/pink, Sclerae nonicteric Neck: Supple, JVD not distended Respiratory: Clear to auscultation bilaterally, Normal air movement Cardiovascular: No edema, Regular rate/rhythm, Normal S1 S2 Capillary refill: <2 Seconds Gastrointestinal: Normal bowel sounds, Soft and benign, No tenderness Musculoskeletal: No swelling, No erythema Integumentary: No rashes Neurological: Normal speech, Normal strength at 5/5 x4 extr - Studies Laboratory Data (last 24 hrs) 10/25/19 23:45: PT 14.6 H, INR 1.24 10/25/19 23:45: WBC 17.1 H, Hgb 10.5 L, Hct 32.8 L, Plt Count 130 L 10/25/19 23:45: Sodium 142, Potassium 5.5 H, BUN 52 H, Creatinine 6.61 H*, Glucose 85, Magnesium 1.7 L D, Total Bilirubin 0.3, AST 31, ALT 25, Alkaline Phosphatase 77 Assessment and Plan - Problems (Diagnosis) (1) Elevated troponin Current Visit: Yes Status: Acute (2) Lung mass Current Visit: Yes Status: Acute (3) Leukocytosis Current Visit: Yes Status: Acute (4) Diabetes Onset Date: 07/15/17 Current Visit: No Status: Acute Qualifiers: Diabetes mellitus type: type 2 Diabetes mellitus director long term care insulin use: with longterm use Diabetes mellitus complication status: without complication Qualified Code(s): E11.9 - Type 2 diabetes mellitus without complications; Z79.4 - long term acute care registered nurse (current) use of insulin (5) Missed dialysis Current Visit: No Status: Acute (6) ESRD (end stage renal disease) on dialysis Onset Date: 03/13/18 Current Visit: No Status: Chronic (7) Chest pain Onset Date: 09/05/15 Current Visit: No Status: Resolved Qualifiers: Ischemic chest pain type: unstable angina pectoris - Plan Admit to the medical floor. Elevated troponin probably secondary to decreased renal clearance Continue to trend troponin. Aspirin, Plavix, Coreg. Start heparin drip. Blood pressure control Consult to nephrology for hemodialysis. Consulted Cardiology. Obtain blood culture. Empiric antibiotics given leukocytosis and malaise. - Advance Directives Does patient have a Living Will: No Does patient have a Durable POA for Healthcare: No
[2019-10-26] MEDS ORDERED: VANCOMYCIN 1 GM/VIAL ONE (03:12)
[2019-10-26] MEDS ORDERED: NITROGLYCERIN 0.4 MG/TAB SL PRN (03:30)
[2019-10-26] MEDS ORDERED: VANCOMYCIN/NS 1 gm 1 GM/250 ML BAG IVPB SCH (03:30)
[2019-10-26] MEDS ORDERED: HEPARIN/D5W 25,000 UNIT/500 ML BAG IV SCH (03:30)
[2019-10-26 04:12] LABS: Basophils % 0.4 % (0-1.3); Hematocrit 30.1 % (39.6-49.0); Lymphocytes % 6.2 % (15.3-44.8); MPV 10.4 fL (7.6-11.3); RBC Red Blood Cell Count 3.29 M/uL (4.33-5.43)
[2019-10-26 04:32] LABS: Potassium 5.5 mmol/L (3.5-5.1)
[2019-10-26 04:36] LABS: Troponin I 1.3 ng/mL (0.0-0.045)
[2019-10-26] MEDS: FENTANYL CITR 100 MCG/2 ML IV PRN ×3 (04:50→21:30)
[2019-10-26] MEDS ORDERED: VANCOMYCIN 1.5 GM in NA CHLORIDE 0.9% 500 ML IVPB ONE (05:00)
[2019-10-26] MEDS: CEFEPIME/SWI 1gm 10 ML IV SCH (05:00)
[2019-10-26] MEDS ORDERED: VANCOMYCIN 500 MG/VIAL ONE (05:17)
[2019-10-26 05:19] LABS: Urine Appearance CLEAR; Urine Bilirubin NEGATIVE (NEG); Urine Blood 1+ (NEG); Urine Color YELLOW; Urine Glucose NEGATIVE (NEG); Urine Protein 2+ (NEG); Urine Specific Gravity 1.015 (1.005-1.030); Urine Urobilinogen 0.2 mg/dL (0.2-1.0); Urine pH 6.5 (5.0-7.0)
[2019-10-26] MEDS ORDERED: NA CHLORIDE 0.9% 250 ML ONE (05:19)
[2019-10-26 05:24] LABS: Urine Microscopic Reflex ORDER UMIC
[2019-10-26 05:38] LABS: Urine Bacteria <20 /HPF (NONE SEEN); Urine Culture Reflex Order NOT NEEDED; Urine RBC <5 /HPF (NONE SEEN)
[2019-10-26] MEDS: PANTOPRAZOLE 40MG TABLET PO SCH (06:30)
[2019-10-26] MEDS ORDERED: VANCOMYCIN/NS 1 gm 1 GM/250 ML BAG IV SCH (07:30)
[2019-10-26] MEDS: INSULIN -REGULAR HUMAN 50 UNIT/0.5 ML ML SQ SCH ×4 (07:30→21:00)
[2019-10-26] MEDS ORDERED: D50W 25 GM/50 ML SYRINGE/VIAL IV ONE ×2 (08:03→12:05)
[2019-10-26] MEDS: HYDRALAZINE HCL 25 MG TABLET PO SCH ×3 (08:32→21:02)
[2019-10-26] MEDS: AMLODIPINE 10 MG TAB PO SCH (08:33)
[2019-10-26] MEDS: METOPROLOL TAR 50 MG TAB PO SCH ×2 (08:33→21:03)
[2019-10-26] MEDS: GABAPENTIN 300 MG CAP PO SCH ×3 (08:34→21:02)
[2019-10-26] MEDS: METOCLOPRAMIDE 5 MG TAB PO SCH (08:34)
[2019-10-26] MEDS: ASPIRIN EC 81 MG TAB PO SCH (08:34)
--- NOTE | 2019-10-26 08:43 | RAD REPORT ---
EXAM DESCRIPTION: [place] Single View10/26/2019 12:07 am CLINICAL HISTORY: Chest pain COMPARISON: May 2019 FINDINGS: Left upper lobe opacity without significant change There has been development of [id number] consolidation right upper lobe probably pneumonia Small nodular opacity left base could represent a nipple shadow or pulmonary nodule Heart is normal size. A central venous line has its tip in the superior vena cava
[2019-10-26] MEDS ORDERED: CEFEPIME 1 GM/VIAL IV SCH (09:00)
[2019-10-26] MEDS ORDERED: HEPA 1000U/500MLS 2,000 UNIT/1,000 ML BAG IV ONE (11:18)
[2019-10-26] MEDS ORDERED: MIDAZOLAM HCL 2 MG/2 ML INJ ONE ×2 (11:43→12:39)
[2019-10-26] MEDS ORDERED: NICARDIPINE HCL 25 MG/10 ML IV ONE (12:39)
[2019-10-26] MEDS ORDERED: FENTANYL CITR 100 MCG/2 ML ONE (12:39)
[2019-10-26] MEDS ORDERED: ATROPINE SULF 1 MG/10 ML SYR IV ONE (12:39)
[2019-10-26] MEDS ORDERED: NA CHLORIDE 0.9% 1,000 ML ONE (13:06)
[2019-10-26] MEDS ORDERED: LIDOCAINE 1% 20 ML MDV ONE (13:17)
--- NOTE | 2019-10-26 16:08 | CON ---
Date of Consultation: 10/26/2019 Chief Complaint: Chest pain. History Of Present Illness: A 64-year-old man with end-stage renal disease, on hemodialysis Saturday, Saturday, and Saturday, with history of congestive heart failure, diabetes, hypertension, presented to the emergency room with chest pain into whole of the chest, not related to exertion, pressure-like, 7/10, could not point out to relieving or aggravating factor along with some nausea, no vomiting. No cough, but with shortness of breath. He missed dialysis for 2 weeks. He had some PVCs on his EKG w ithout any acute ST abnormalities. Feels better now and is chest pain-free. Past Medical History: As outlined above in the HPI. Diabetes, hypertension, CVA, anemia, CHF, end-s tage renal disease. Medications: Refer to reconciliation sheet for detailed list. Allergies: CORTICOSTEROIDS. Family History: History of hypertension, cancer in his mother. Social History: Does not smoke or drink. Does not use any drugs. Review of Systems: All systems reviewed, were negative except those mentioned in HPI. Physical Examination: Vital Signs: His temperature is 99.1, pulse 76, breathing 16, blood pressure is 190/82, saturating 1 00%. General: This is a middle-aged man, in no distress. Head and Neck: Pupils are reactive to light. Intact eye movements. No JVD. No cervical lymphadeno lynne. Neck: Supple. Thyroid is not enlarged. Lungs: Decreased breathing sounds bilaterally. No rhonchi, wheezing, or crackles. No accessory mus isela use. Heart: Regular rate and rhythm. No extra sounds. Abdomen: Soft, nontender. Bowel sounds positive. No organomegaly. No masses or hernia. No rigidi ty or rebound. Extremities: No edema, clubbing, or cyanosis. Intact pulses. Skin: No rash. Neurologic: Alert, awake, oriented x3. No acute focal deficits appreciated. Lymph Nodes: No cervical or axillary lymphadenopathy. Investigations: Chest x-ray, left upper lobe opacity without significant change, possible pneumonia. EKG without significant acute ST-T wave abnormalities and PVCs at the time. Laboratory Data: His troponin is 1.30, then 1.17. Creatinine is 6.58, but he has end-stage renal di sease. White blood cell count was 17,000, hemoglobin is 9.5. Assessment And Plan: 1.Acute non-ST elevation myocardial infarction. The patient never had a heart catheterization eric bustillos. I sat down with him and discussed risks, benefits, and alternatives to coronary angiogram. He agreed to proceed with it. We will schedule him for this afternoon to keep n.p.o. Meanwhile continu e with heparin drip and aspirin, and patient can have dialysis today after the heart catheterization. 2.End-stage renal disease with fluid overload and missed dialysis. Nephrology was consulted for emmanuel t purpose. To be done after the heart catheterization today. 3.Hypertension. Blood pressure is elevated. Resume home medications. Adjust further as needed. 4.Diabetes. Care for monitoring of his sugars and adjust his home medications accordingly. /ZULEIMA Voice ID: [id number] Report ID: [id number]
[2019-10-26] MEDS: RISPERIDONE 1 MG TABLET PO SCH (21:02)
--- NOTE | 2019-10-26 22:01 | OP ---
Date of Procedure: 10/26/2019 Surgeon: BRYAN ESTRADA Procedure: 1.Selective coronary angiogram. 2.Left heart catheterization. Indication: Non-ST elevation myocardial infarction. Access: Right femoral artery [place] closed with a [place] Angio-Seal. Complications: None. Bleeding: Less than 5 mL. Findings: 1.Mild nonobstructive coronary artery disease. 2.LVEDP of 14 mmHg. Description Of Procedure: Patient was brought in the cardiac catheterization laboratory, prepped and draped in usual sterile fashion and then right femoral artery was accessed under the ultrasound guid ance and fluoroscopy guidance using micropuncture kit, then we advanced the [place] pinnacle sheath in place. Then, we took a [place] JL4 catheter and the aortic root and engaged the left main contreras ry artery and took standard views and then exchanged to a JR4 catheter and engaged the right coronary artery and took a standard views. Findings: 1.Mild huz-iu-rzepbh LAD disease, about 30% stenosis; otherwise, normal coronary arteries and this i s a left dominant circulation with a large left circumflex and small RCA. 2.LVEDP of 14 mmHg and no gradient difference on pullback. Recommendations: Aggressive medical management. SR/MODL Voice ID: [id number] Report ID: [id number]
--- NOTE | 2019-10-27 01:47 | CON ---
Date of Consultation: 10/26/2019 Chief Complaint: End-stage renal disease. History Of Present Illness: Patient has history of multiple medical problems including end-stage renal disease on hemodialysis, congestive heart failure, diabetes mellitus, patient is noncompliant with dialysis, scheduled him at least 3 consecutive treatment in outpatient setting. He came to the hospital because of the chest pain, generalized weakness shortness of breath. He was found to have severe leukocytosis. His chest x-ray showed increased interstitial marking consistent with pulmonary edema. Patient was found to have elevated troponin and is undergoing workup for coronary artery disease and is to have cardiac catheterization. Patient has history of drug abuse, congestive heart failure, history of previous pneumonia. Review of Systems: Constitutional: Denies fever, chills. Eyes: Denies vision changes. Ears, Nose, Mouth, and Throat: Denies sore throat, earache. Respiratory: Has history of PND. Denies orthopnea, wheezing. GI: Denies nausea, vomiting. : Denies dysuria, hematuria. Musculoskeletal: Denies muscle aches or joint swelling. All other systems reviewed and all are negative. Past Medical History: Hypertension, insulin-dependent diabetes mellitus, arthritis, hypercholesterolemia, CVA in 2015, drug abuse, congestive heart failure, acute on chronic systolic diastolic dysfunction, GERD, pneumonia, colonoscopy, EGD, test for right upper chest, right knee partial patellar repair with tendon repair. Patellectomy was done. Family History: Father, cancer. No history of medical records about type of the cancer. Mother, hypertension and cancer. Patient does not know origin of the cancer. Physical Examination: General: Alert, follows commands. Denies complaints. At this point, does not have a chest pain. EYES: Anicteric sclerae, EOMI. Ears, Nose, Mouth and Throat: Oral mucosa moist. No pallor. Neck: Supple. No bruits. Lungs: Diminished breath sounds at bases. No rhonchi. Heart: S1, S2. No pericardial friction rub. Abdomen: Soft, benign, nontender. Extremities: There is some edema in both feet. Neurological: Moving extremities. Cranial nerves intact. Psychiatric: Alert, oriented x2. Normal affect. Laboratory Data: WBC 17.1, hemoglobin 10.5, hematocrit 32.8, platelet count 130. Sodium 142, potassium 5.5, BUN 52, creatinine 6.61, glucose 85, magnesium 1.7. ALT 25, AST 31. Impression And Plan: 1. Elevated troponin. Patient is undergoing cardiac workup. Patient will have dialysis after IV contrast procedure is done to prevent hyperkalemia. Patient was found to have a borderline hyperkalemia. Potassium with dialysis will be adjusted to treat electrolyte abnormalities. 2. Diabetes mellitus. Continue insulin. 3. Chest pain and elevated troponin, likely patient has acute coronary syndrome. Dialysis parameters with blood flow rate adjusted to current hemodynamics condition with acute coronary syndrome. 4. Severe leukocytosis. Workup will be done to rule out endocarditis. Empiric antibiotics are started and blood culture was obtained. ANSLEY/ZULEIMA Voice ID: [id number] Report ID: [id number] KATIE
[2019-10-27] MEDS: PANTOPRAZOLE 40MG TABLET PO SCH (05:40)
[2019-10-27] MEDS: CEFEPIME/SWI 1gm 10 ML IV SCH (05:40)
[2019-10-27] MEDS: FENTANYL CITR 100 MCG/2 ML IV PRN ×2 (05:40→20:27)
[2019-10-27] MEDS ORDERED: VANCOMYCIN 1 GM/VIAL ONE (06:36)
[2019-10-27] MEDS ORDERED: NA CHLORIDE 0.9% 250 ML ONE (06:37)
[2019-10-27] MEDS: INSULIN -REGULAR HUMAN 50 UNIT/0.5 ML ML SQ SCH ×4 (07:30→20:29)
--- NOTE | 2019-10-27 08:03 | ECHO ---
HEIGHT: 5 ft 11 in WEIGHT: 162 lb 14.4 oz DATE OF STUDY: 10/26/[address]: becki taylor 2-DIMENSIONAL: YES M.MODE: YES DOPPLER: YES COLOR FLOW: YES TDS: NO PORTABLE: NO DEFINITY: NO BUBBLE STUDY: NO DIAGNOSIS: ELEVATED TROPONIN CARDIAC HISTORY: CATHERIZATION: NO SURGERY: NO PROSTHETIC VALVE: NO PACEMAKER: NO MEASUREMENTS (cm) DIASTOLIC (NORMALS) SYSTOLIC (NORMALS) IVSd 1.3 (0.6-1.2) LA Diam 3.9 (1.9-4.0) LVEF 68% LVIDd 3.9 (3.5-5.7) LVIDs 2.4 (2.0-3.5) %FS 37% LVPWd 1.6 (0.6-1.2) Ao Diam 3.1 (2.0-3.7) 2 DIMENSIONAL ASSESSMENT: RIGHT ATRIUM: NORMAL LEFT ATRIUM: ENLARGED RIGHT VENTRICLE: NORMAL LEFT VENTRICLE: MILD LEFT VENTRICULAR HYPERTROPHY TRICUSPID VALVE: MILD TRICUSPID REGURGITATION MITRAL VALVE: NORMAL PULMONIC VALVE: NORMAL AORTIC VALVE: MILDLY CALCIFIED PERICARDIAL EFFUSION: NO AORTIC ROOT: NO AORTIC STENOSIS LEFT VENTRICULAR WALL MOTION: NORMAL. DOPPLER/COLOR FLOW: NORMAL. COMMENTS: NORMAL LEFT VENTRICULAR EJECTION FRACTION 55-60% WITH NORMAL WALL MOTION. DIASTOLIC DYSFUNCTION GRADE 1 IS PRESENT. MILD LEFT VENTRICULAR HYPERTROPHY. MILD TRICUSPID REGURGITATION, WITH RIGHT VENTRICULAR SYSTOLIC PRESSURE OF 35-40mmHg (MILD) TECHNOLOGIST: SAURAV SALAS
[2019-10-27] MEDS: GABAPENTIN 300 MG CAP PO SCH ×3 (09:15→20:29)
[2019-10-27] MEDS: HYDRALAZINE HCL 25 MG TABLET PO SCH ×3 (09:15→20:28)
[2019-10-27] MEDS: METOCLOPRAMIDE 5 MG TAB PO SCH (09:15)
[2019-10-27] MEDS: ASPIRIN EC 81 MG TAB PO SCH (09:15)
[2019-10-27] MEDS: AMLODIPINE 10 MG TAB PO SCH (09:16)
[2019-10-27] MEDS: METOPROLOL TAR 50 MG TAB PO SCH ×2 (09:16→20:28)
[2019-10-27] MEDS: ENSURE HIGH PROTEIN 237 ML CAN PO SCH ×2 (09:17→13:27)
--- NOTE | 2019-10-27 10:31 | P.PN ---
Subjective Date of Service: 10/27/19 Chief Complaint: Chest pain, generalized body pain Pt with ESRD, admitted for chest pain pt is non compliant with HD S/P cardiac cath Today S/p cardiac cath with 50% distal LAD stenosis, no intervention needed HD tomorrow will resume epogemn leuckocytosis , which could be stress induced , last admission pt had mild leuckocytosis hypoglycemic episodes , will monitor , will add nepro Physical exam general: Awake and alert , pt was agitated Neck; Supple, No elevated JVD hear: RRR, normal S1,2 no murmur or rub Chest: CTAB, no rales or wheezes Abdomen: Soft , Nt Extremities no edema, Lt knee with cast ESRD on HD MWF HD as per schedule renal dose meds Chest pain S/P cardiac catheterization , no intervention needed cont medicakl treatment Anemia of chronic disease will resume Epogen leuckocytosis which could be stress induced , last admission pt had mild leuckocytosis F/U cultures and procal level cont Abx for now need to R/O ClL , can follow with hematology as an OP MBD cont binders Hypoglycemia episodes hold insulin will add Nepro total time spent 40min Physical Examination - Vital Signs Temperature: 98.9 F Blood Pressure: 153/62 Pulse: 75 Respirations: 18 Pulse Ox (%): 99
[2019-10-27] MEDS ORDERED: EPOETIN 4,000 UNIT/ML VIAL IV SCH (10:45)
--- NOTE | 2019-10-27 14:18 | RAD REPORT ---
EXAM DESCRIPTION: RAD - Chest Single View - 10/27/2019 2:09 pm CLINICAL HISTORY: follow up pulmonary edema Chest pain. COMPARISON: Chest Single View dated 10/25/2019; Abdomen 1 View (KUB) dated 06/14/2019; Chest Single Vie w dated 05/31/2019; Chest Single View dated 05/28/2019 FINDINGS: Portable technique limits examination quality. Poorly defined opacity in the left upper lobe and right mid lung again noted likely representing infi ltrate/pneumonia. The heart is mildly enlarged in size. Right-sided venous catheter tip in the SVC.
--- NOTE | 2019-10-27 14:20 | P.PN ---
Subjective Date of Service: 10/27/19 Primary Care Provider: none Chief Complaint: Chest pain, generalized body pain Subjective: Improving, Other (Patient still had episode of hypoglycemia.) Physical Examination - Vital Signs Temperature: 99.1 F Blood Pressure: 159/77 Pulse: 87 Respirations: 18 Pulse Ox (%): 98 - Physical Exam General: Alert, Cooperative HEENT: Atraumatic Neck: Supple Respiratory: Clear to auscultation bilaterally, Normal air movement Cardiovascular: Normal pulses, Regular rate/rhythm Gastrointestinal: Normal bowel sounds, Soft and benign Neurological: Normal speech, Normal strength at 5/5 x4 extr, Normal tone, Normal affect - Studies Medications List Reviewed: Yes Assessment & Plan Discharge Plan: Home Plan to discharge in: 24 Hours Physician Review Additional Text: Impression: Chest pain status post heart catheterization showing mild mid to distal LAD disease about 30% stenosis otherwise normal coronaries with left dominant cir culation with large left circumflex and small RCA End-stage renal disease on hemodialysis Anemia chronic disease Hypoglycemia Plan: Chest pain status post heart catheterization showing mild mid to distal LAD disease about 30% stenosis otherwise normal coronaries with left dominant circulation with large left circumflex and small RCA: Case discussed with donte roger yesterday. Patient will continue with aggressive medical management. Discharge held today due to hypoglycemia. Will provide supplementation. Will monitor blood sugar. Will review home medication. Discontinue any insulin sliding scale. Once blood sugar more stable then will plan for discharge likely tomorrow. End-stage renal disease on hemodialysis: Continue with dialysis Anemia chronic disease: Overall stable. Hypoglycemia: Etiology unknown. Discontinue insulin sliding scale. Will provide supplementation. Will review medications and home medications to determine if patient taking any medication that may cause hypoglycemia. Continue monitor closely. Once more stable will discharge. Anticipate discharge tomorrow. Time Spent Managing Pts Care (In Minutes): 55
--- NOTE | 2019-10-27 17:29 | PN ---
Date of Progress Note: 10/27/2019 Subjective: Mr. Trejo is a 64-year-old male with history of end-stage renal disease, on hemodialysi s; hypertension; dyslipidemia; diabetes; chronic diastolic congestive heart failure, came in with [place] [address] pain, elevated troponin. Catheterization yesterday, which was done by Dr. Pineda revealed minimal coronary artery disease. No focal stenosis. No need for intervention. Overnight, he has done well . He has no complaints. His telemetry is normal. His catheterization entry site is intact without any hematoma. Objective: Chest: Clear. Cardiac: Revealed an S4 gallops. Extremities: There is no edema. Impression And Plan: Minimal coronary artery disease, elevated troponin, probably secondary to conge stive heart failure and end-stage renal disease. Continue medical therapy. Continue dialysis. Can go home today. He should be on statin in addition to his regimen. His other problems including diab etes, hypertension, and dyslipidemia are well controlled. He can go home whenever it is okay with Dr Kenia Alvarenga. We will see him in the office in the near future. REAGAN/ZULEIMA Voice ID: [id number] Report ID: [id number]
[2019-10-27] MEDS: RISPERIDONE 1 MG TABLET PO SCH (20:28)
[2019-10-27] MEDS: NEPRO SHAKE 237 ML CAN PO SCH (21:33)
[2019-10-27] MEDS: HEPARIN 5000 UNIT/ML 1 ML VIAL SQ SCH (21:33)
[2019-10-28] MEDS: FENTANYL CITR 100 MCG/2 ML IV PRN ×2 (03:01→11:55)
[2019-10-28 05:08] VITALS: BMI 24.5
[2019-10-28] MEDS: PANTOPRAZOLE 40MG TABLET PO SCH (05:36)
[2019-10-28] MEDS: INSULIN -REGULAR HUMAN 50 UNIT/0.5 ML ML SQ SCH ×3 (07:30→16:30)
[2019-10-28] MEDS: HEPARIN 5000 UNIT/ML 1 ML VIAL SQ SCH (08:18)
[2019-10-28] MEDS: METOCLOPRAMIDE 5 MG TAB PO SCH (08:19)
[2019-10-28] MEDS: AMLODIPINE 10 MG TAB PO SCH (08:19)
[2019-10-28] MEDS: ASPIRIN EC 81 MG TAB PO SCH (08:19)
[2019-10-28] MEDS: HYDRALAZINE HCL 25 MG TABLET PO SCH ×2 (08:19→16:50)
[2019-10-28] MEDS: METOPROLOL TAR 50 MG TAB PO SCH (08:19)
[2019-10-28] MEDS: GABAPENTIN 300 MG CAP PO SCH ×2 (08:19→16:50)
[2019-10-28] MEDS: NEPRO SHAKE 237 ML CAN PO SCH ×3 (08:20→16:50)
[2019-10-28 08:58] VITALS: O2SAT 99
[2019-10-28] MEDS ORDERED: NEPRO SHAKE 237 ML CAN PO SCH (09:00)
--- NOTE | 2019-10-28 11:59 | P.DS ---
Admission Date: 10/26/19 Discharge Date: 10/28/19 Primary Care Provider: none Disposition: DC HOME/HOME HEALTH CARE Discharge Condition: GOOD Reason for Admission: Chest pain, generalized body pain Consultations: Nephrology-Dr. Cruz Cardiology-Dr. Pineda/Dr. Alvarado Procedures: CXR: COMPARISON: Chest Single View dated 10/25/2019; Abdomen 1 View (KUB) dated 06/14/2019; Chest Single View dated 05/31/2019; Chest Single View dated 05/28/2019 FINDINGS: Portable technique limits examination quality. Poorly defined opacity in the left upper lobe and right mid lung again noted likely representing infiltrate/pneumonia. The heart is mildly enlarged in size. Right-sided venous catheter tip in the SVC. ECHO: EF 60% LEFT VENTRICULAR WALL MOTION: NORMAL. DOPPLER/COLOR FLOW: NORMAL. COMMENTS: NORMAL LEFT VENTRICULAR EJECTION FRACTION 55-60% WITH NORMAL WALL MOTION. DIASTOLIC DYSFUNCTION GRADE 1 IS PRESENT. MILD LEFT VENTRICULAR HYPERTROPHY. MILD TRICUSPID REGURGITATION, WITH RIGHT VENTRICULAR SYSTOLIC PRESSURE OF 35-40mmHg (MILD) Heart catheterization: Date of Procedure: 10/26/2019 Surgeon: BRYAN PINEDA Procedure: 1. Selective coronary angiogram. 2. Left heart catheterization. Indication: Non-ST elevation myocardial infarction. Access: Right femoral artery 6-Pakistani closed with a 6-Pakistani Angio-Seal. Complications: None. Bleeding: Less than 5 mL. Findings: 1. Mild nonobstructive coronary artery disease. Mild [id number] LAD disease, about 30% stenosis; otherwise, normal coronary arteries and this is a left dominant circulation with a large left circumflex and small RCA. 2. LVEDP of 14 mmHg and no gradient difference on pullback. Recommendations: Aggressive medical management. Medical Problem List: Chest pain with NSTEMI status post heart catheterization showing mild nonobstructive CAD with mild mid to distal LAD disease about 30% stenosis otherwise normal coronaries with left dominant circulation with large left circumflex and small RCA End-stage renal disease on hemodialysis Anemia chronic disease Hypoglycemia likely from mild malnutrition Hypertension GERD Anxiety Chronic pain Brief History of Present Illness: 64-year-old male presented to the emergency room with chest pain. Patient with history of end-stage renal disease on hemodialysis, hypertension, anemia of chronic disease an GERD. Patient was admitted for further evaluation and treatment. Hospital Course: Patient presented with chest pain. Patient with multiple risk factors. Troponin elevated indicating NSTEMI. Patient seen and evaluated by Cardiology. Heart catheterization was recommended. Patient agreed. Heart catheterization showed mild nonobstructive CAD with mild mid to distal LAD disease about 30% stenosis otherwise normal coronaries with left dominant circulation with large left circumflex and small RCA. Aggressive medical management recommended. At discharge patient will continue with aspirin 81 mg daily, Lipitor 20 mg daily, and hypertensive medications including Norvasc 10 mg daily, hydralazine 50 mg 1 pill 3 times a day, and metoprolol 25 mg 1 pill twice daily. Recommend to follow up with cardiology in 1-2 weeks to follow up this hospitalization. Further adjustment in medication can be done by Cardiology. Patient with end-stage renal disease on hemodialysis. During the course of his stay patient received dialysis. Patient remained stable. Recommend to follow up with Nephrology to further monitor and address. Continue with dialysis as directed. Recommend no further use of nonsteroidal anti-inflammatories. Future medications will need to be renally dose. Patient also had episodes of hypoglycemia likely from malnutrition. A1c 5.2. Oral intake was increased. Supplementation was provided. This improved. Medications reviewed without any indication of side effect of hypoglycemia. Patient will continue to increase his oral intake. At discharge he will continue with Nepro supplementation 3 times a day. Patient with hypertension. As stated above patient will continue with Norvasc 10 mg daily, hydralazine 50 mg 3 times a day, and metoprolol 25 mg 1 pill twice daily. Patient will no longer take carvedilol as this was replaced with metoprolol. Recommend to monitor blood pressure daily. Further adjustment can be done by his PCP, cardiology or nephrology. Patient with hyperlipidemia. As recommended above patient will continue with Lipitor 20 mg daily. Patient with history of GERD. At discharge patient will continue with medication Protonix 40 mg daily. Patient with chronic pain. At discharge he will continue with gabapentin 300 mg 3 times a day. Patient with anxiety disorder. Patient takes risperidone 1 mg at bedtime. Vital Signs/Physical Exam: Temp Pulse Resp BP Pulse Ox 97.1 F 67 18 159/78 H 100 10/28/19 08:00 10/28/19 08:19 10/28/19 08:00 10/28/19 08:19 10/28/19 08:00 General: Alert, In no apparent distress, Oriented x3, Cooperative HEENT: Atraumatic Neck: Supple Respiratory: Clear to auscultation bilaterally, Normal air movement Cardiovascular: Normal pulses, Regular rate/rhythm Gastrointestinal: Normal bowel sounds, Soft and benign, Non-distended, No tenderness, No masses, No rebound, No guarding Musculoskeletal: No erythema, No tenderness, No warmth Integumentary: No tenderness/swelling, No erythema, No warmth, No cyanosis Neurological: Normal speech, Normal strength at 5/5 x4 extr, Normal tone, Normal affect Laboratory Data at Discharge: WBC 17.0 K/uL (4.3-10.9) H 10/26/19 03:52 Hgb 9.5 g/dL (13.6-17.9) L 10/26/19 03:52 Hct 30.1 % (39.6-49.0) L 10/26/19 03:52 Plt Count 133 K/uL (152-406) L 10/26/19 03:52 PT 14.6 SECONDS (9.5-12.5) H 10/25/19 23:45 INR 1.24 10/25/19 23:45 APTT 75.3 SECONDS (24.3-36.9) H 10/26/19 12:25 Sodium 142 mmol/L (136-145) 10/26/19 03:52 Potassium 5.5 mmol/L (3.5-5.1) H 10/26/19 03:52 BUN 53 mg/dL (7-18) H 10/26/19 03:52 Creatinine 6.58 mg/dL (0.55-1.3) H* 10/26/19 03:52 Glucose 61 mg/dL (74-106) L 10/26/19 03:52 Magnesium 1.7 mg/dL (1.8-2.4) L D 10/25/19 23:45 Total Bilirubin 0.3 mg/dL (0.2-1.0) 10/25/19 23:45 AST 31 U/L (15-37) 10/25/19 23:45 ALT 25 U/L (12-78) 10/25/19 23:45 Alkaline Phosphatase 77 U/L (45-117) 10/25/19 23:45 Troponin I 1.17 ng/mL (0.0-0.045) H* 10/26/19 08:01 Triglycerides 49 mg/dL (<150) 10/26/19 03:52 Cholesterol 116 mg/dL (<200) 10/26/19 03:52 HDL Cholesterol 63 mg/dL (40-60) H 10/26/19 03:52 Cholesterol/HDL Ratio 1.84 10/26/19 03:52 Home Medications: Gabapentin 300 mg PO TID 10/26/19 Pantoprazole [Protonix Tab*] 40 mg PO DAILY 10/26/19 Risperidone [Risperdal] 1 mg PO BEDTIME 10/26/19 Amlodipine [Norvasc*] 10 mg PO DAILY #30 tab 10/28/19 Atorvastatin Calcium [Lipitor] 20 mg PO BEDTIME #30 tab 10/28/19 Hydralazine HCl [Apresoline] 50 mg PO TID #90 10/28/19 Metoprolol Tartrate [Lopressor*] 25 mg PO BID #60 tab 10/28/19 Nepro Shake [Nepro*] 237 ml PO TID #90 can 10/28/19 New Medications: Hydralazine HCl [Apresoline] 50 mg PO TID #90 Atorvastatin Calcium [Lipitor] 20 mg PO BEDTIME #30 tab Metoprolol Tartrate [Lopressor*] 25 mg PO BID #60 tab Nepro Shake [Nepro*] 237 ml PO TID #90 can Amlodipine [Norvasc*] 10 mg PO DAILY #30 tab Patient Discharge Instructions: 1. Recommend follow up with PCP in 1 week to follow up this hospitalization. 2. Patient presented with chest pain. Patient with multiple risk factors. Troponin elevated indicating NSTEMI. Patient seen and evaluated by Cardiology. Heart catheterization was recommended. Patient agreed. Heart catheterization showed mild nonobstructive CAD with mild mid to distal LAD disease about 30% stenosis otherwise normal coronaries with left dominant circulation with large left circumflex and small RCA. Aggressive medical management recommended. At discharge patient will continue with aspirin 81 mg daily, Lipitor 20 mg daily, and hypertensive medications including Norvasc 10 mg daily, hydralazine 50 mg 1 pill 3 times a day, and metoprolol 25 mg 1 pill twice daily. Recommend to follow up with cardiology in 1-2 weeks to follow up this hospitalization. Further adjustment in medication can be done by Cardiology. 3. Patient with end-stage renal disease on hemodialysis. During the course of his stay patient received dialysis. Patient remained stable. Recommend to follow up with Nephrology to further monitor and address. Continue with dialysis as directed. Recommend no further use of nonsteroidal anti-inflammatories. Future medications will need to be renally dose. 4. Patient also had episodes of hypoglycemia likely from malnutrition. A1c 5.2. Oral intake was increased. Supplementation was provided. This improved. Medications reviewed without any indication of side effect of hypoglycemia. Patient will continue to increase his oral intake. At discharge he will continue with Nepro supplementation 3 times a day. 5. Patient with hypertension. As stated above patient will continue with Norvasc 10 mg daily, hydralazine 50 mg 3 times a day, and metoprolol 25 mg 1 pill twice daily. Patient will no longer take carvedilol as this was replaced with metoprolol. Recommend to monitor blood pressure daily. Further adjustment can be done by his PCP, cardiology or nephrology. 6. Patient with hyperlipidemia. As recommended above patient will continue with Lipitor 20 mg daily. 7. Patient with history of GERD. At discharge patient will continue with medication Protonix 40 mg daily. 8. Patient with chronic pain. At discharge he will continue with gabapentin 300 mg 3 times a day. 9. Patient with anxiety disorder. Patient takes risperidone 1 mg at bedtime. Diet: Renal Activity: Fall precautions Time spent managing pt's care (in minutes): 55
--- NOTE | 2019-10-28 14:21 | PN ---
Date of Progress Note: 10/28/2019 Subjective: Patient was admitted with non-ST elevation AL. Patient is status post cardiac cath. Patient is scheduled for dialysis today. Patient had low blood sugar down to 40. Physical Examination: Vital Signs: When I saw the patient, blood pressure 159/78, pulse of 67, afebrile. Chest: Clear to auscultation. Heart: S1, S2. Regular. Abdomen: Soft, nontender. Extremities: No edema. Neurological: Alert, oriented x3. No focal. Laboratory Data: WBC 17, H and H 9.5/30.1, platelets 133. Sodium 142, potassium 5.5, bicarb 19, BUN 53, creatinine 6.5. Calcium 7.8. Troponin 1.1. BNP 7200. Current Medications: The patient on include; 1. Aspirin. 2. Epogen. 3. Amlodipine. 4. Hydralazine 50 t.i.d. 5. Metoprolol 25 b.i.d. 6. Nitroglycerin. 7. Risperidone. 8. Gabapentin. 9. Metoclopramide. 10. Pantoprazole. Assessment And Plan: 1. End-stage renal disease, slightly on the hypertension side, normal volume. We will arrange for dialysis today on his regular basis. 2. Hypertension, controlled. We will follow up blood pressure after dialysis. 3. Anemia of chronic kidney disease. Continue SCARLETT. 4. Secondary hyperparathyroidism. I am going to follow up the phosphorus. 5. Non-ST elevation myocardial infarction as by Cardiology, status post catheterization. No intervention. 6. Hypoglycemia with leukocytosis. Patient had a catheter. I am going to go ahead and get a blood culture on dialysis. We will get cortisol level and will follow up with primary. 7. Diabetes as by primary, especially with the low blood Sugar will send for Cortizol and BC . 8. Hyperkalemia. Patient is going to be dialyzed on low-potassium bath. 9. Anemia of chronic kidney disease. Continue SCARLETT. MALINDA/ZULEIMA Voice ID: [id number] Report ID: [id number] MTDD
[2019-10-28 17:25] VITALS: BP 124/58; TEMP 97.6
[2019-10-29 15:26] LABS: HBsAG Nonreactive (Nonreactive)
== END 2019-10-28 18:31 | disposition home or self-care (01) | DRG 280 ==
LOC: ER 23:35 → ERHOLD 10-26 02:16 → 2ND 10-26 03:02
PROVIDERS: ADMIT Internal Medicine; ATTEND Family Medicine
PROC: 4A023N7 Measurement of Cardiac Sampling and Pressure, Left Heart, Percutaneous Approach (ICD-10-PCS; principal; 2019-10-26)
PROC: B2111ZZ Fluoroscopy of Multiple Coronary Arteries using Low Osmolar Contrast (ICD-10-PCS; 2019-10-26)
PROC: 5A1D70Z Performance of Urinary Filtration, Intermittent, Less than 6 Hours Per Day (ICD-10-PCS; 2019-10-26)
DX: I21.4 Non-ST elevation (NSTEMI) myocardial infarction (principal); N18.6 End stage renal disease; I13.2 Hypertensive heart and chronic kidney disease with heart failure and with stage 5 chronic kidney disease, or end stage renal disease; I50.32 Chronic diastolic (congestive) heart failure; N25.81 Secondary hyperparathyroidism of renal origin; E44.1 Mild protein-calorie malnutrition; I25.110 Atherosclerotic heart disease of native coronary artery with unstable angina pectoris; E11.22 Type 2 diabetes mellitus with diabetic chronic kidney disease; Z88.8 Allergy status to other drugs, medicaments and biological substances; Z79.01 Long term (current) use of anticoagulants; Z79.891 Long term (current) use of opiate analgesic; Z79.899 Other long term (current) drug therapy; Z79.4 Long term (current) use of insulin; Z86.73 Personal history of transient ischemic attack (TIA), and cerebral infarction without residual deficits; K21.9 Gastro-esophageal reflux disease without esophagitis; R79.89 Other specified abnormal findings of blood chemistry; R91.8 Other nonspecific abnormal finding of lung field; D72.829 Elevated white blood cell count, unspecified; Z91.15 Patient's noncompliance with renal dialysis; E78.5 Hyperlipidemia, unspecified; D63.8 Anemia in other chronic diseases classified elsewhere; E11.649 Type 2 diabetes mellitus with hypoglycemia without coma; D63.1 Anemia in chronic kidney disease; E87.5 Hyperkalemia; Z68.23 Body mass index [BMI] 23.0-23.9, adult; F41.9 Anxiety disorder, unspecified; G89.29 Other chronic pain; Z20.828 Contact with and (suspected) exposure to other viral communicable diseases
CPT/HCPCS: 36415; 71045; 80048; 80061; 80076; 80202; 81003; 81015; 82533; 82947; 83036; 83735; 83880; 84145; 84484; 85025; 85610; 85730; 86704; 86706; 86803; 87040; 87340; 87522; 90935; 93005; 93306; 93458; 94760; 96365; 96375; 99285; C1760; C1893; J0692; J1644; J2250; J2270; J3010; J7030; J7040; Q5105; U0002

== ENCOUNTER 2019-12-28 01:41 | Inpatient (IN) | payer OTHER ==
--- OUTSIDE RECORDS SUMMARY | 2019-12-28 01:44 | XMS REPORT | Continuity of Care Document ---
:1955 Author Organization [facility] t Address [address] [place] [address] Care Team Providers Name Role Phone Unavailable [...] edema [facility] Chronic Chronic Problem Active [facility] kidney kidney [facility] - disease, disease, Memori a stage 3 stage 3 l (moderate) (moderate) [facility] ent Clinics Other Other Diagnosis Active [facility] closed closed [facility] - fracture fracture Memori a of right of right l patella patella Outpati with with ent routine routine Clinics healing, healing, subsequent subsequent encounter encounter Pain, Pain, Diagnosis Active [facility] joint, joint, [facility] - knee, knee, Memoria right right l [facility] ent Clinics Allergies, Adverse Reactions, Alerts Allergy Allergy Status Severity Reaction(s) Onset Inactive Treating Comm ents Source Name Type Date Date Clinician Corticos Adverse Active anaphylaxis [facility] teroids Reaction [facility] ent [facility] Medications Ordered Filled Start Stop Current Ordering Indication Dosage Frequency Signature Comments Components Source Medication Medication Date Date Medication? Clinician (SIG) Name Name Coreg Coreg Yes Lalo [address] [facility] [place] [facility] ent [facility] Hydrocodone Hydrocodone Yes Lalo (Schedule [facility] -Acetaminop -Acetaminop [place] II Drug) Cris - chantelle lockhart TAKE 1 [facility] Clinics NEEDED Pantoprazol Pantoprazol Yes Lalo TAKE [address] [facility] e Sodium e Sodium [place] TABLET BY Lori kes - MOUTH ONCE Memoria A DAY [facility] ent [facility] Coreg Coreg Yes Lalo [address] [facility] [place] [facility] ent [facility] HydrALAZINE HydrALAZINE Yes Lalo [address] [facility] HCl HCl [place] with food [facility] ent [facility] Adjustable Adjustable Yes Lalo USE WITH [facility] Lancing Lancing [place] LANCETS TO [facility]re[facility] es - Device Device TEST BLOOD Memor ia GLUCOSE [facility] ent [facility] Comfort EZ Comfort EZ Yes Lalo USE TO [facility] Insulin Insulin [place] INJECT [facility] - Syringe Syringe INSULIN Memori a TWICE l DAILY [facility] ent [facility] Amlodipine Amlodipine Yes Lalo TAKE [address] [facility] Besylate Besylate [place] TABLET BY Lori kes - MOUTH ONCE Memoria A DAY [facility] ent [facility] Easy Touch Easy Touch Yes Lalo USE TO [facility] Alcohol Alcohol [place] TEST BLOOD [facility] es - Prep Medium Prep Medium GLUCOSE Memoria TWICE l DAILY [facility] ent [facility] Risperidone Risperidone Yes Lalo TAKE [address] [facility] [place] TABLET BY [facility]TH AT [facility] BEDTIME [facility] ent [facility] Bumetanide Bumetanide Yes Lalo TAKE [address] [facility] [place] TABLET BY [facility] Memoria EVERY DAY l Outpati ent Clinics Bumetanide Bumetanide Yes Lalo TAKE [address] [facility] [place] TABLET BY [facility]TH Memoria EVERY DAY l Outpati ent Clinics Lisinopril Lisinopril Yes Lalo TAKE [address] [facility] [place] TABLET BY [facility] - MOUTH Memoria EVERY [...] Test [place] TEST BLOOD [facility] Senokot S Senokot S Yes Lalo [address] [facility] [place] in the [facility] - evening as Memoria needed l Outpati ent Clinics [facility] Yes Lalo TAKE [address] [facility] [address] Carbonate [...] [place] TABLETS BY [facility] - MOUTH AT [facility] BEDTIME l [facility] ent Clinics Furosemide Furosemide Yes Lalo TAKE [address] [facility] [place] TABLET [facility] - EVERY DAY [facility] ent Clinics Eliquis Eliquis Yes Lalo TAKE [address] [facility] [place] TABLET BY [facility] - MOUTH Memoria TWICE A l DAY [facility] ent Clinics Levemir Levemir Yes Lalo [address] [place] [facility] ent Clinics Atorvastati Atorvastati Yes Lalo TAKE [address] [facility] n Calcium n Calcium [place] TABLET [facility] es - EVERY DAY [facility] ent Clinics Protonix Protonix Yes Lalo [address] [facility] [place] [facility] ent Clinics Amlodipine Amlodipine Yes Lalo TAKE [address] [facility] Besylate Besylate [place] TABLET BY Lori kes - MOUTH ONCE Memoria A DAY [facility] ent Clinics Spironolact Spironolact Yes Lalo [address] [facility] one one [place] [facility] ent Clinics Aspirin Aspirin Yes Lalo [address] [place] [facility] ent Clinics Metoclopram Metoclopram Yes Lalo TAKE [address] [facility] sirena HCl sirena HCl [place] TABLET BY Luke s - MOUTH Memoria EVERY DAY l [facility] ent Clinics Zolpidem Zolpidem Yes Lalo (Schedule [facility] Tartrate Tartrate [facility] IV Drug) [facility]reras es - TAKE 1 Memoria TABLET BY l MOUTH AT [facility] BEDTIME ent Clinics Neurontin Neurontin Yes Lalo TAKE [address] [facility] [place] CAPSULE BY [facility] - MOUTH Memoria THREE l TIMES A [facility] DAY ent Clinics Procedures This patient has no known procedures. Encounters Start End Encounter Admission Attending Care Care Encounter Source Date/Time Date/Time Type Type Clinicians Facility Department ID 2019-07-19 2019-07-19 Outpatient Becky Cox [id number] [facility] 22:[facility]00 22[facility]02[facility]00 [facility] 2019-07-16 2019-07-16 Outpatient Becky Penat [id number] [facility] 08:30:00 08:30:00 t [facility] ent [facility] Results This patient has no known results.
[2019-12-28 02:46] LABS: Absolute Lymphocytes (CBC) 1.1 K/uL (0.7-4.9); Basophils % 0.2 % (0-1.3); Lymphocytes % 5.4 % (15.3-44.8); RBC Red Blood Cell Count 2.26 M/uL (4.33-5.43)
[2019-12-28 02:48] LABS: Protime INR 1.12
[2019-12-28 02:53] LABS: Hematocrit 20.4 % (39.6-49.0)
[2019-12-28 03:13] LABS: ALT/SGPT 23 U/L (12-78); AST/SGOT 36 U/L (15-37); Albumin 2.8 g/dL (3.4-5.0); Alkaline Phosphatase 84 U/L (45-117); BUN Blood Urea Nitrogen 106 mg/dL (7-18); Bicarbonate 16 mmol/L (21-32); Bilirubin Direct < 0.1 mg/dL (0-0.2); Bilirubin Total 0.2 mg/dL (0.2-1.0); CKMB Creatine Kinase MB 3.7 ng/mL (0.3-3.6); Creatine Phosphokinase 86 U/L (39-308); Glucose Level 60 mg/dL (74-106); Lipase 277 U/L (73-393); NT PRO-BNP 26504 pg/mL (<125); Protein, Total 6.6 g/dL (6.4-8.2); Sodium Level 141 mmol/L (136-145); Troponin (Emerg Dept Use Only) 0.12 ng/mL (0.0-0.045)
[2019-12-28 03:14] LABS: Potassium 6.4 mmol/L (3.5-5.1)
[2019-12-28] MEDS ORDERED: ACETAMINOPHEN 325 MG TABLET ONE (03:18)
[2019-12-28] MEDS ORDERED: Caclcium Chloride 10% INJ SYR IV ONE (03:39)
[2019-12-28] MEDS ORDERED: SODIUM BICARB 50 MEQ/50ML VIAL ONE (03:39)
[2019-12-28] MEDS ORDERED: D50W 25 GM/50 ML SYRINGE/VIAL IV ONE (03:39)
[2019-12-28] MEDS ORDERED: INSULIN -REGULAR HUMAN 50 UNIT/0.5 ML ML ONE (03:49)
--- NOTE | 2019-12-28 04:00 | EDPHYS ---
Physician Documentation [facility] Name: Billy Trejo Age: 64 yrs Sex: Male : 1955 Arrival Date: 12/28/2019 Time: 01:43 Bed 16 Private MD: ED Physician Naseem Hoyt HPI: 12/27 06:33 This 64 yrs old Black Male presents to ER via EMS with complaints of Breathing tw4 Difficulty. 06:33 The patient has shortness of breath with light activity. The patient has shortness of tw4 breath at rest. Onset: The symptoms/episode began/occurred 1 week(s) ago. Duration: The symptoms are continuous, and are unchanged since they started. The patient's shortness of breath has no apparent modifying factors. Severity of symptoms: At their worst the symptoms were moderate in the emergency department the symptoms are unchanged. The patient has experienced similar episodes in the past, a few times. pt states that he has missed his dialysis and hasn't had dialysis in over a week. Historical: - Allergies: 01:56 Corticosteroids (Glucocorticoids); vc - Home Meds: 01:56 amlodipine oral [Active]; carvedilol oral oral [Active]; Cyclobenzaprine Oral [Active]; vc Diazepam Oral [Active]; gabapentin oral oral [Active]; risperidone oral oral [Active]; - PMHx: 01:56 "spot on lung"; Anemia; Arthritis; CHF; CVA; Diabetes - IDDM; Dialysis; M,W,F; GERD; GI vc Bleed; High Cholesterol; Hypertension; Pneumonia; - PSHx: 01:56 Knee surgery; vc - Immunization history:: Adult Immunizations up to date. - Social history:: Smoking status: Patient denies any tobacco usage or history of. ROS: 06:33 Constitutional: Negative for fever, chills, and weight loss, Eyes: Negative for injury, tw4 pain, redness, and discharge, Cardiovascular: Negative for chest pain, palpitations, and edema, Abdomen/GI: Negative for abdominal pain, nausea, vomiting, diarrhea, and constipation, Back: Negative for injury and pain, MS/Extremity: Negative for injury and deformity, Skin: Negative for injury, rash, and discoloration, Neuro: Negative for headache, weakness, numbness, tingling, and seizure. 06:33 Respiratory: Positive for cough, dyspnea on exertion, shortness of breath, Negative for hemoptysis. Exam: 06:33 Constitutional: This is a well developed, well nourished patient who is awake, alert, tw4 and in no acute distress. Head/Face: Normocephalic, atraumatic. Chest/axilla: Normal chest wall appearance and motion. Nontender with no deformity. No lesions are appreciated. Cardiovascular: Regular rate and rhythm with a normal S1 and S2. No gallops, murmurs, or rubs. Normal PMI, no JVD. No pulse deficits. Respiratory: Lungs have equal breath sounds bilaterally, clear to auscultation and percussion. No rales, rhonchi or wheezes noted. No increased work of breathing, no retractions or nasal flaring. Abdomen/GI: Soft, non-tender, with normal bowel sounds. No distension or tympany. No guarding or rebound. No evidence of tenderness throughout. Back: No spinal tenderness. No costovertebral tenderness. Full range of motion. MS/ Extremity: Pulses equal, no cyanosis. Neurovascular intact. Full, normal range of motion. Neuro: Awake and alert, GCS 15, oriented to person, place, time, and situation. Cranial nerves II-XII grossly intact. Motor strength 5/5 in all extremities. Sensory grossly intact. Cerebellar exam normal. Normal gait. Vital Signs: 01:48 BP 185 / 97; Pulse 88; Resp 20; Temp 99.0(O); Pulse Ox 100% on 3 lpm NC; Weight 79.83 vc kg; Height 5 ft. 11 in. (180.34 cm); Pain 8/10; 02:00 BP 176 / 90; Pulse 84; Resp 12; Pulse Ox 99% on R/A; vc 03:00 BP 171 / 94; Pulse 86; Resp 19; Pulse Ox 98% on R/A; vc 04:00 BP 183 / 91; Pulse 90; Resp 20; Pulse Ox 98% on R/A; vc 05:13 BP 162 / 91; Pulse 99; Resp 27; Pulse Ox 97% on R/A; Pain 8/10; mt2 01:48 Body Mass Index 24.55 (79.83 kg, 180.34 cm) vc MDM: 01:56 Patient medically screened. tw4 06:35 Differential diagnosis: Anemia CHF exacerbation, pneumonia, pulmonary edema, Pulmonary tw4 Embolism reactive airway disease. Antibiotic administration: Not indicated. Data reviewed: vital signs, nurses notes. Data reviewed: lab test result(s), cardiac enzymes, CBC, electrolytes, hepatic panel. Data interpreted: Pulse oximetry: Interpretation: borderline. Plan: O2 by NC applied. Test interpretation: by ED physician or midlevel provider: ECG, plain radiologic studies. Counseling: I had a detailed discussion with the patient and/or guardian regarding: the historical points, exam findings, and any diagnostic results supporting the discharge/admit diagnosis, lab results, radiology results. Physician consultation: Dread JACOBO regarding admission, to the ICU, patient's condition, need to come to ED to see patient, and will see patient in ED. 12/27 01:55 Order name: Blood Culture Adult (2) tw12/27 01:55 Order name: BMP; Complete Time: 04:15 12/27 01:55 Order name: CBC with Diff 12/27 01:55 Order name: Ckmb; Complete Time: 04:15 12/27 01:55 Order name: CPK; Complete Time: 04:15 12/27 01:55 Order name: D-Dimer; Complete Time: 04:15 12/27 01:55 Order name: Hepatic Function; Complete Time: 04:15 12/27 01:55 Order name: Lipase; Complete Time: 04:15 12/27 01:55 Order name: Magnesium; Complete Time: 04:15 12/27 01:55 Order name: NT PRO-BNP; Complete Time: 04:15 12/27 01:55 Order name: PT-INR; Complete Time: 04:15 12/27 01:55 Order name: Ptt, Activated; Complete Time: 04:15 12/27 01:55 Order name: Troponin (emerg Dept Use Only); Complete Time: 04:15 12/27 01:55 Order name: XRAY CXR (1 view) tw 12/27 02:54 Order name: Manual Differential EDMI 12/27 02:56 Order name: Type And Screen vc 12/27 04:47 Order name: Urinalysis EDMI 12/27 04:47 Order name: Basic Metabolic Panel [facility] 12/27 04:47 Order name: Basic Metabolic Panel EDMS 12/27 04:47 Order name: CBC with Automated Diff EDMS 12/27 04:47 Order name: CBC with Automated Diff EDMS 12/27 04:47 Order name: Magnesium EDMS 12/27 04:47 Order name: Magnesium EDMS 12/27 04:47 Order name: Troponin I EDMS 12/27 04:47 Order name: Troponin I EDMI 12/27 04:47 Order name: Troponin I EDMI 12/27 04:47 Order name: Troponin I EDMI 12/27 05:12 Order name: SARS-COV-2 RT PCR EDMI 12/27 01:55 Order name: EKG; Complete Time: 01:56 tw12/27 01:55 Order name: Cardiac monitoring; Complete Time: 02:37 4 12/27 01:55 Order name: EKG - Nurse/Tech; Complete Time: 02:32 12/27 01:55 Order name: IV Saline Lock; Complete Time: 02:32 12/27 01:55 Order name: Labs collected and sent; Complete Time: 02:32 12/27 01:55 Order name: O2 Per Protocol; Complete Time: 02:37 12/27 01:55 Order name: O2 Sat Monitoring; Complete Time: 02:32 12/27 04:47 Order name: Consistent Carb (ADA) 1800 Nam EDMS EC:36 Rate is 83 beats/min. Rhythm is regular. QRS [place] is Normal. [place] interval is normal. QRS tw4 interval is normal. QT interval is normal. No Q waves. T waves are Peaked in leads III, V2, V3, V4. No ST changes noted. Clinical impression: NSR w/ Non-specific ST/T Changes. Interpreted by me. Reviewed by me. Administered Medications: 03:09 Drug: Tylenol 650 mg Route: PO; vc 04:32 Follow up: Response: No adverse reaction vc 03:44 Drug: Insulin Regular Human 10 units {Co-Signature: mt2 (Renate Londono RN).} Route: vc IVP; Site: left forearm; 04:31 Follow up: Response: No adverse reaction vc 03:45 Drug: D50W 50 ml Route: IVP; Site: left forearm; vc 04:31 Follow up: Response: No adverse reaction vc 03:45 Drug: Calcium Chloride 1 grams Route: IVP; Site: left forearm; vc 04:31 Follow up: Response: No adverse reaction vc 03:45 Drug: Sodium Bicarbonate 1 amp Route: IVP; Site: left forearm; vc 04:31 Follow up: Response: No adverse reaction vc 05:10 Drug: Tylenol #3 (300 mg-30 mg) 1 tablet Route: PO; mt2 05:57 Follow up: Response: No adverse reaction; Pain is decreased mt2 Disposition: 12/28/19 03:59 Hospitalization ordered by Dread Scott for Inpatient Admission. Preliminary diagnosis are Acute pulmonary edema, Hyperkalemia, Chronic kidney disease, stage 5. - Bed requested for Telemetry/MedSurg (Inpatient). - Status is Inpatient Admission. vc - Condition is Fair. - Problem is an ongoing problem. - Symptoms are unchanged. Signatures: Dispatcher [employer] EDMI Cassie Ortiz RN RN Naseem Hoyt MD MD tw4 Nasra Vieira mw2 Ena Holliday RN RN vc Toscano, Marlene, RN RN mt2 Renate Londono RN mt2 Corrections: (The following items were deleted from the chart) 04:00 03:59 Hospitalization Ordered by Dread JACOBO for Inpatient Admission. tw4 Preliminary diagnosis is Acute pulmonary edema. Bed requested for Telemetry/MedSurg (Inpatient). Status is Inpatient Admission. Condition is Fair. Problem is an ongoing problem. Symptoms are unchanged. tw4 04:06 02:39 CORONAVIRUS+MR.LAB.BRZ ordered. [facility] EDMS 04:52 04:47 CONS Physician Consult ordered. [facility] EDMS 05:20 04:00 12/28/2019 03:59 Hospitalization Ordered by Dread JACOBO for Inpatient mw Admission. Preliminary diagnosis is Acute pulmonary edema; Hyperkalemia; Chronic kidney disease, stage 5. Bed requested for Telemetry/MedSurg (Inpatient). Status is Inpatient Admission. Condition is Fair. Problem is an ongoing problem. Symptoms are unchanged. tw4 06:05 05:20 12/28/2019 03:59 Hospitalization Ordered by Dread JACOBO for Inpatient mw2 Admission. Preliminary diagnosis is Acute pulmonary edema; Hyperkalemia; Chronic kidney disease, stage 5. Bed requested for Telemetry/MedSurg (Inpatient). Status is Inpatient Admission. Condition is Fair. Problem is an ongoing problem. Symptoms are unchanged. mw 06:24 06:05 12/28/2019 03:59 Hospitalization Ordered by Dread JACOBO for Inpatient vc Admission. Preliminary diagnosis is Acute pulmonary edema; Hyperkalemia; Chronic kidney disease, stage 5. Bed requested for Telemetry/MedSurg (Inpatient). Status is Inpatient Admission. Condition is Fair. Problem is an ongoing problem. Symptoms are unchanged. mw2
--- NOTE | 2019-12-28 04:00 | ER ---
Nurse's Notes [facility] Name: Billy Trejo Age: 64 yrs Sex: Male : 1955 Arrival Date: 12/28/2019 Time: 01:43 Bed 16 Private MD: Diagnosis: Acute pulmonary edema;Hyperkalemia;Chronic kidney disease, stage 5 Presentation: 12/27 01:48 Chief complaint: EMS states: "He missed dialysis for the last week and a half, he vc called us complaining he was having trouble breathing, no energy, and pain in his chest that shoots down to his abdomen. He described the pain as feeling like he was being punched. Vitals on arrival were SpO2 100% on room air, BP 182/94, pulse 80, temp 97.7.". Coronavirus screen: cough unrelated to allergies, difficulty breathing, fatigue, shortness of breath, Client presents with at least one sign or symptom that may indicate coronavirus-19. Standard/surgical mask placed on the client. Ebola Screen: No symptoms or risks identified at this time. Initial Sepsis Screen: Does the patient meet any 2 criteria? No. Patient's initial sepsis screen is negative. Does the patient have a suspected source of infection? No. Patient's initial sepsis screen is negative. Risk Assessment: Do you want to hurt yourself or someone else? Patient reports no desire to harm self or others. Onset of symptoms was December 28, 2019. 01:48 Method Of Arrival: EMS: [facility] vc 01:48 Acuity: BRAD 3 vc Triage Assessment: 01:57 General: Appears in no apparent distress. uncomfortable, ill, unkempt, Behavior is vc cooperative, anxious. Pain: Complains of pain in chest Pain radiates to left upper quadrant Pain currently is 8 out of 10 on a pain scale. Quality of pain is described as "being punched". Respiratory: Reports shortness of breath at rest cough that is Onset: The symptoms/episode began/occurred gradually, the patient has moderate shortness of breath. Historical: - Allergies: :56 Corticosteroids (Glucocorticoids); vc - Home Meds: :56 amlodipine oral [Active]; carvedilol oral oral [Active]; Cyclobenzaprine Oral [Active]; vc Diazepam Oral [Active]; gabapentin oral oral [Active]; risperidone oral oral [Active]; - PMHx: 01:56 "spot on lung"; Anemia; Arthritis; CHF; CVA; Diabetes - IDDM; Dialysis; M,W,F; GERD; GI vc Bleed; High Cholesterol; Hypertension; Pneumonia; - PSHx: 01:56 Knee surgery; vc - Immunization history:: Adult Immunizations up to date. - Social history:: Smoking status: Patient denies any tobacco usage or history of. Screenin:58 Abuse screen: Denies threats or abuse. Nutritional screening: No deficits noted. vc Tuberculosis screening: No symptoms or risk factors identified. Fall Risk None identified. Assessment: 01:58 Cardiovascular: Rhythm is sinus rhythm. Respiratory: Airway is patent Respiratory vc effort is even, labored. 02:00 General: Appears in no apparent distress. uncomfortable, ill, unkempt, Behavior is vc calm, cooperative, appropriate for age. Pain: Complains of pain in left upper quadrant and chest Cardiovascular: Edema is 2+ to right elbow, right forearm, right wrist and right hand is 3+ to left elbow, left forearm, left wrist and left hand. Respiratory: Respiratory: Respiratory pattern is regular, symmetrical, Breath sounds are diminished bilaterally. GI: No signs and/or symptoms were reported involving the gastrointestinal system. : Reports Dialysis patient on Saturday, , and Saturday. EENT: No signs and/or symptoms were reported regarding the EENT system. Derm: Skin temperature is warm. 02:00 Reassessment: Patient stated it may have been 2 weeks since he was dialyzed. When asked vc why he hasn't went to dialysis patient stated, "I'm just tired of going.". 03:00 Reassessment: Patient appears in no apparent distress at this time. Patient and/or vc family updated on plan of care and expected duration. Pain level reassessed. Patient states symptoms have not improved. 04:00 Reassessment: Patient appears in no apparent distress at this time. Patient and/or vc family updated on plan of care and expected duration. Pain level reassessed. Patient states symptoms have not improved. 04:34 Reassessment: Patient appears in no apparent distress at this time. Patient and/or vc family updated on plan of care and expected duration. Pain level reassessed. Patient states symptoms have not improved. 05:13 Reassessment: Patient and/or family updated on plan of care and expected duration. Pain mt2 level reassessed. Patient is alert, oriented x 3, equal unlabored respirations, skin warm/dry/pink. PATIENT C/O GENERALIZED PAIN. NOTIFIED HOSPITALIST VO FOR TYL # 3 ONCE. PATIENT SIGNED CONSENT FOR BLOOD TRANSFUSION DURING DIALYSIS. Vital Signs: 01:48 BP 185 / 97; Pulse 88; Resp 20; Temp 99.0(O); Pulse Ox 100% on 3 lpm NC; Weight 79.83 vc kg; Height 5 ft. 11 in. (180.34 cm); Pain 8/10; 02:00 BP 176 / 90; Pulse 84; Resp 12; Pulse Ox 99% on R/A; vc 03:00 BP 171 / 94; Pulse 86; Resp 19; Pulse Ox 98% on R/A; vc 04:00 BP 183 / 91; Pulse 90; Resp 20; Pulse Ox 98% on R/A; vc 05:13 BP 162 / 91; Pulse 99; Resp 27; Pulse Ox 97% on R/A; Pain 8/10; mt2 01:48 Body Mass Index 24.55 (79.83 kg, 180.34 cm) vc ED Course: 01:43 Patient arrived in ED. cl3 01:48 Ena Holliday, RN is Primary Nurse. vc 01:53 Triage completed. vc 01:54 Naseem Hoyt MD is Attending Physician. tw4 01:55 First set of blood cultures drawn. Inserted saline lock: 20 gauge in left ,using mt2 aseptic technique. posterior forearm. Inserted. 01:59 Arm band placed on. vc 01:59 Patient has correct armband on for positive identification. Bed in low position. Call vc light in reach. Side rails up X2. surveillance system monitor on. Pulse ox on. NIBP on. 02:55 Notified ED physician of a critical lab result(s). Hgb 6.5, Hct 20.4, D-dimer 4110. lp1 03:13 Notified ED physician of a critical lab result(s). Potassium 6.4, Creatinine 12.1. lp1 03:35 XRAY CXR (1 view) In Process Unspecified. EDMS 03:59 Dread Scott PA is Hospitalizing Provider. tw4 05:52 No provider procedures requiring assistance completed. Patient admitted, IV remains in mt2 place. Administered Medications: 03:09 Drug: Tylenol 650 mg Route: PO; vc 04:32 Follow up: Response: No adverse reaction vc 03:44 Drug: Insulin Regular Human 10 units {Co-Signature: mt2 (Renate Londono RN).} Route: vc IVP; Site: left forearm; 04:31 Follow up: Response: No adverse reaction vc 03:45 Drug: D50W 50 ml Route: IVP; Site: left forearm; vc 04:31 Follow up: Response: No adverse reaction vc 03:45 Drug: Calcium Chloride 1 grams Route: IVP; Site: left forearm; vc 04:31 Follow up: Response: No adverse reaction vc 03:45 Drug: Sodium Bicarbonate 1 amp Route: IVP; Site: left forearm; vc 04:31 Follow up: Response: No adverse reaction vc 05:10 Drug: Tylenol #3 (300 mg-30 mg) 1 tablet Route: PO; mt2 05:57 Follow up: Response: No adverse reaction; Pain is decreased mt2 Outcome: 03:59 Decision to Hospitalize by Provider. tw4 05:52 critical mt2 06:01 Admitted to Med/surg accompanied by tech, via stretcher, on monitor, with chart, Report mt2 called to PATRICE GREGG 06:01 Instructed on the need for admit. 06:24 Patient left the ED. vc Signatures: Dispatcher [employer] EDMS Jennifer Mocsoso, MARY RN lp1 Naseem Hoyt MD MD tw4 Corie Man cl3 Ena Holliday RN RN vc Toscano, Marlene, RN RN mt2 Renate Londono RN mt2
[2019-12-28 04:31] LABS: Blood Morphology Comment NOTED (NOT SEEN); Platelet Estimate ADEQ; Teardrop Cell 1+
--- NOTE | 2019-12-28 05:02 | P.HP ---
Certification for Inpatient Patient admitted to: Inpatient With expected LOS: >2 Midnights Patient will require the following post-hospital care: None Practitioner: I am a practitioner with admitting privileges, knowledge of patient current condition, hospital course, and medical plan of care. Services: Services provided to patient in accordance with Admission requirements found in Title 42 Section 412.3 of the Code of Federal Regulations <Dread Scott - Last Filed: 12/28/19 04:54> Patient History Date of Service: 12/28/19 Reason for admission: Pulmonary edema/NSTEMI/anemia History of Present Illness: 64-year-old male with a past medical history of end-stage renal disease on dialysis T,T,S, chronic diastolic heart failure, type 2 diabetes mellitus, hyperlipidemia, hypertension and CVA presents to the emergency room with complaints of increasing difficulty of breathing and chest pain. Patient states that he missed dialysis for 2 weeks. Patient was admitted to the hospital last month for missing dialysis for 2 weeks. Patient states that "he just got tired of going". In the emergency room patient is complaining of chest pain in the center of the chest extending into the abdomen. Patient had an echocardiogram on 10/26/2019 which showed an EF of 55-60% and diastolic dysfunction. He also underwent cardiac catheterization which showed a 30% stenosis in the distal LAD. Rest of arteries were unremarkable. Patient's lab work shows a creatinine of 12.1, potassium of 6.4, elevated troponin of 0.12, a BNP of 26,504, white cell count of 19.5, bands of 4 and a D-dimer of 4110. His oxygen saturations on arrival to the ER where 100% on room air, blood pressure of 182/94, pulse of 80 and a temperature of 97.7. Also complaining of cough. On physical exam patient is stable. Currently on 3 L nasal cannula at 100% O2 saturations. He is calm and in no distress. Alert and oriented x4. Asking for pain medication and for something to eat. Patient states that his medical records supervisor is Dr. Cruz. Patient will be admitted and further evaluated. Home medications list reviewed: No - Past Medical/Surgical History Diabetic: Yes -: HTN -: IDDM (states does not use insulin, has order for Lantus ) -: Arthritis -: high cholesterol -: cva- 2015 -: anemia -: drug abuse -: CHF -: ESRD- on HD MWF -: blood clot in arm -: GERD -: pneumonia -: colonoscopy -: EGD -: tessio right upper chest -: R knee partial patellectomy w/ patellar tendon repair 06/01/19 Psychosocial/ Personal History: Lives at home - Family History Father -: Cancer Notes: NO REAL HISTORY IS KNOWN OTHER THAN WHAT WAS TOLD TO HIM Mother -: Hypertension, Cancer Notes: NO REAL HISTORY KNOWN OTHER THAN WHAT WAS TOLD TO HIM - Social History Smoking Status: Never smoker Alcohol use: No CD- Drugs: No Caffeine use: Yes Place of Residence: Home <Dread Scott - Last Filed: 12/28/19 04:54> Date of Service: 12/28/19 <Patrick Brown - Last Filed: 12/28/19 13:00> Allergies Corticosteroids (Glucocorticoids) Allergy (Verified 12/28/19 06:39) Anaphylaxis Home Medications: Gabapentin 300 mg PO TID 10/26/19 Pantoprazole [Protonix Tab*] 40 mg PO DAILY 10/26/19 Risperidone [Risperdal] 1 mg PO BEDTIME 10/26/19 Amlodipine [Norvasc*] 10 mg PO DAILY #30 tab 10/28/19 Atorvastatin Calcium [Lipitor] 20 mg PO BEDTIME #30 tab 10/28/19 Hydralazine HCl [Apresoline] 50 mg PO TID #90 10/28/19 Metoprolol Tartrate [Lopressor*] 25 mg PO BID #60 tab 10/28/19 Nepro Shake [Nepro*] 237 ml PO TID #90 can 10/28/19 Review of Systems General: As per HPI Eyes: Unremarkable ENT: Unremarkable Respiratory: Cough, Shortness of Breath, As per HPI Cardiovascular: Chest Pain, As per HPI Gastrointestinal: Unremarkable Genitourinary: Unremarkable Musculoskeletal: Unremarkable Integumentary: Unremarkable Neurological: Unremarkable Lymphatics: Unremarkable <Dread Scott - Last Filed: 12/28/19 04:54> Physical Examination - Vital Signs Temperature: 97.7 F Blood Pressure: 182/94 Pulse: 80 Respirations: 19 Pulse Ox (%): 100 (RA) - Physical Exam General: Alert, In no apparent distress, Oriented x3 HEENT: Atraumatic, Normocephalic, PERRLA, Mucous membr. moist/pink Neck: Supple, Other (Trachea midline) Respiratory: Clear to auscultation bilaterally, Diminished Cardiovascular: Normal pulses, Regular rate/rhythm, Normal S1 S2, Edema Capillary refill: <2 Seconds Gastrointestinal: Normal bowel sounds, Soft and benign, Non-distended Musculoskeletal: No clubbing, No contractures, No erythema, Swelling Integumentary: No rashes, No breakdown, No significant lesion Neurological: Normal gait, Normal speech, Normal strength at 5/5 x4 extr, Normal tone Urinary: Other (Patient reports dialysis Saturday) - Studies Laboratory Data (last 24 hrs) 12/28/19 02:30: PT 13.2 H, INR 1.12, APTT 35.6 12/28/19 02:30: WBC 19.5 H, Hgb 6.5 L*, Hct 20.4 L*, Plt Count 152 12/28/19 02:30: Sodium 141, Potassium 6.4 H*, BUN 106 H, Creatinine 12.10 H*, Glucose 60 L, Magnesium 2.0, Total Bilirubin 0.2, AST 36, ALT 23, Alkaline Phosphatase 84, Lipase 277 <Dread Scott - Last Filed: 12/28/19 04:54> - Studies Laboratory Data (last 24 hrs) 12/28/19 02:30: PT 13.2 H, INR 1.12, APTT 35.6 12/28/19 02:30: WBC 19.5 H, Hgb 6.5 L*, Hct 20.4 L*, Plt Count 152 12/28/19 02:30: Sodium 141, Potassium 6.4 H*, BUN 106 H, Creatinine 12.10 H*, Glucose 60 L, Magnesium 2.0, Total Bilirubin 0.2, AST 36, ALT 23, Alkaline Phosphatase 84, Lipase 277 Microbiology Data (last 24 hrs): 12/28/19 02:20 Blood - Blood Anaerobic Blood Culture - Final <Patrick Brown - Last Filed: 12/28/19 13:00> Assessment and Plan - Plan Impression: Pulmonary edema secondary to missing dialysis for 2 weeks: End-stage renal disease on dialysis Saturday: Anemia of chronic disease: NSTEMI with a history of chronic diastolic congestive heart failure: Hyperkalemia secondary to missed dialysis: Leukocytosis: Plan: Pulmonary edema secondary to missing dialysis for 2 weeks: Patient has missed dialysis for 2 weeks. Patient was admitted last month for similar. Will consult nephrology-Dr. Cruz. Patient will need dialysis. Continue O2 supp ort as needed. End-stage renal disease on dialysis Saturday: Patient has missed dialysis for 2 weeks. His medical records supervisor is . Will consult Nephrology. Anemia of chronic disease: H&H of 6.5/20.4. Patient will be transfused 2 units PRBCs during dialysis. NSTEMI with a history of chronic diastolic congestive heart failure: Patient had a full cardiac workup 1 month ago. Cardiac catheterization showed a 30% stenosis in the LAD. Rest of cardiac arteries unremarkable. Echocardiogram showed an EF of 55-60% with diastolic dysfunction. Troponin of 0.12 on arrival. Will continue to trend troponins. Patient complaining of chest pain radiating and abdomen pain. Hyperkalemia secondary to missed dialysis: Likely secondary to missed dialysis. Monitor electrolytes. Leukocytosis: White cell count of 19 K, bands of 4 and an elevated D-dimer of 4110. Will start antibiotic empirically. Chest x-ray complete with results pending. Discharge Plan: Home Plan to discharge in: Greater than 2 days - Advance Directives Does patient have a Living Will: No Does patient have a Durable POA for Healthcare: No - Code Status/Comfort Care Code Status Assessed: Yes Time Spent Managing Pts Care (In Minutes): 55 <Dread Scott - Last Filed: 12/28/19 04:54> - Plan Case discussed in detail with physician per diem physical therapist assistant. Continue with plan of care. Case discussed with nephrology. Patient will receive dialysis. Patient will also received blood transfusion. Please see progress note for details. <Patrick Brown - Last Filed: 12/28/19 13:00>
[2019-12-28] MEDS ORDERED: CODEINE 30MG/APAP 300MG TAB ONE (05:12)
[2019-12-28] MEDS ORDERED: Levofloxacin500mg IV 500 MG/100 ML BAG IV ONE (06:33)
[2019-12-28] MEDS ORDERED: Levofloxacin 250mg IV 250 MG/50 ML BAG IV SCH (07:00)
[2019-12-28] MEDS: INSULIN -REGULAR HUMAN 50 UNIT/0.5 ML ML SQ SCH ×4 (07:30→21:00)
--- NOTE | 2019-12-28 07:42 | RAD REPORT ---
EXAM DESCRIPTION: Justyn Single View12/28/2019 3:35 am CLINICAL HISTORY: Shortness of breath COMPARISON: October 2019 FINDINGS: A 2 centimeter left upper lobe opacity without significant change. Mild additional bilateral pulmonary opacities Heart is mildly enlarged. Central venous catheter remains in place IMPRESSION: Mild bilateral pulmonary opacities may represent mild pulmonary edema 2 centimeter left upper lobe opacity without significant change may represent a nodule or infiltrate in should be monitored on subsequent exam
[2019-12-28] MEDS: HYDRALAZINE HCL 25 MG TABLET PO SCH ×3 (09:00→21:40)
[2019-12-28] MEDS: METOPROLOL TAR 25 MG TAB PO SCH ×3 (09:00→21:41)
[2019-12-28] MEDS: AMLODIPINE 10 MG TAB PO SCH ×2 (09:00→16:37)
[2019-12-28] MEDS: HEPARIN 5000 UNIT/ML 1 ML VIAL SQ SCH ×2 (10:20→16:36)
[2019-12-28] MEDS: NEPRO SHAKE 237 ML CAN PO SCH ×3 (10:21→21:51)
[2019-12-28] MEDS: PANTOPRAZOLE 40MG TABLET PO SCH (10:22)
[2019-12-28 11:09] LABS: Urine Appearance CLEAR; Urine Bilirubin NEGATIVE (NEG); Urine Blood TRACE (NEG); Urine Color YELLOW; Urine Glucose NEGATIVE (NEG); Urine Protein 3+ (NEG); Urine Specific Gravity 1.015 (1.005-1.030); Urine Urobilinogen 0.2 mg/dL (0.2-1.0)
[2019-12-28 11:14] LABS: Urine Microscopic Reflex ORDER UMIC
[2019-12-28 11:17] LABS: Urine Bacteria NONE SEEN /HPF (NONE SEEN); Urine Culture Reflex Order REFLEXED; Urine RBC <5 /HPF (NONE SEEN)
--- NOTE | 2019-12-28 12:15 | P.PN ---
Subjective Date of Service: 12/28/19 Chief Complaint: Pulmonary edema/NSTEMI/anemia Subjective: Doing well (Patient alert.) Physical Examination - Vital Signs Temperature: 97.0 F Blood Pressure: 191/85 Pulse: 84 Respirations: 16 Pulse Ox (%): 100 - Physical Exam General: Alert, Cooperative HEENT: Atraumatic Neck: Supple Respiratory: Diminished (To the bases) Cardiovascular: Normal pulses, Regular rate/rhythm Gastrointestinal: Normal bowel sounds Musculoskeletal: No erythema, No tenderness, No warmth Neurological: Normal speech, Normal strength at 5/5 x4 extr, Normal tone, Normal affect - Studies Laboratory Data (last 24 hrs) 12/28/19 02:30: PT 13.2 H, INR 1.12, APTT 35.6 12/28/19 02:30: WBC 19.5 H, Hgb 6.5 L*, Hct 20.4 L*, Plt Count 152 12/28/19 02:30: Sodium 141, Potassium 6.4 H*, BUN 106 H, Creatinine 12.10 H*, Gl ucose 60 L, Magnesium 2.0, Total Bilirubin 0.2, AST 36, ALT 23, Alkaline Phosphatase 84, Lipase 277 Microbiology Data (last 24 hrs): 12/28/19 02:20 Blood - Blood Anaerobic Blood Culture - Final Medications List Reviewed: Yes Assessment & Plan Discharge Plan: Home Plan to discharge in: 24 Hours Physician Review Additional Text: Impression: Dyspnea secondary to pulmonary edema likely related to noncompliance with dialy sis and underlying acute on chronic diastolic CHF End-stage renal disease on hemodialysis with hyperkalemia Elevated troponin likely stress reaction related to above Anemia of chronic disease Noncompliance with follow up Plan: Dyspnea secondary to pulmonary edema likely related to noncompliance with dialysis and underlying acute on chronic diastolic CHF: Patient admitted for further evaluation and treatment. Patient will receive dialysis today. Case discussed with nephrology. Will provide oxygen. Wean off oxygen. Also discuss compliance with the patient in detail. Address risks of continued noncompliance. Patient understands this. Await further recommendations from nephrology. Patient will receive transfusion during dialysis. Anticipate i mprovement over the next 24 hr. End-stage renal disease on hemodialysis with hyperkalemia: Patient will receive dialysis. Elevated troponin likely stress reaction related to above: Will continue monitor closely. Patient had a full workup 1 month ago. Heart catheterization showed 30% stenosis of the LAD. Rest of cardiac arteries unremarkable. Echocardiogram shows EF of 55% with diastolic dysfunction. Will continue to trend troponin. Will discuss with cardiology. Likely no need for intervention. Anemia of chronic disease: Patient will receive blood during dialysis. Hypertension: Restart home medication Hyperlipidemia: Restart home medication Noncompliance with follow up: Compliance addressed in detail with the patient. Patient understands this. Risks address with continued noncompliance. Time Spent Managing Pts Care (In Minutes): 55
[2019-12-28] MEDS: EPOETIN ALFA 10,000 UNIT/ML VIAL IV SCH (13:30)
[2019-12-28] MEDS: HYDROCODONE/APAP 7.5/325 MG TAB PO PRN ×2 (16:35→23:44)
[2019-12-28] MEDS: RISPERIDONE 1 MG TABLET PO SCH (21:40)
[2019-12-28] MEDS: ATORVASTATIN 20 MG TAB PO SCH (21:40)
[2019-12-28] MEDS: TRAMADOL HCL 50 MG TAB PO PRN (21:48)
[2019-12-29] MEDS: HEPARIN 5000 UNIT/ML 1 ML VIAL SQ SCH ×3 (00:53→18:50)
--- NOTE | 2019-12-29 02:04 | CON ---
Date of Consultation: 12/28/2019 Chief Complaint: End-stage renal disease, severe hyperkalemia, hyperazotemia, fluid overload. History Of Present Illness: The patient has end-stage renal disease, is dialysis dependent and has b een dialyzed on TTS schedule, although the patient has history of noncompliance and he may need at le ast 3 consecutive dialysis treatment. He came to the hospital because of shortness of breath. He tian s history of diastolic congestive heart failure, diabetes mellitus, hypertension, end-stage renal dis ease due to diabetes mellitus and hypertension, history of CVA. He came to the hospital and had comp laints of increasing difficulty with breathing and chest pain. The patient missed dialysis by at [address] 2 weeks. The patient was admitted to the hospital last month when he missed dialysis at least for 2 weeks. The patient states he was tired of going to dialysis center. In the emergency room, the p tiffany is complaining of chest pain in the center of the chest, extending into abdomen. Echocardiogr am done on October 26, 2019 showed ejection fraction 55% to 60% with some diastolic dysfunction. He pre viously underwent cardiac catheterization, which shows 30% stenosis in the distal LAD. Rest of the a rteries were unremarkable. Blood work showed potassium of 6.4, troponin was 0.12, creatinine 12.1, B DATA LEAD was 26,504, white count was 19.5. The patient had a screen done for PE. D-dimers were up to 4110 . On arrival to emergency room, the patient was 100% on room air, blood pressure was elevated up to 189/94, temperature 97.7. The patient was complaining of productive cough. Past Medical History: Hypertension, insulin-dependent diabetes mellitus, end-stage renal disease on dialysis, osteoarthritis, anemia due to chronic kidney disease, hypercholesterolemia, renal osteodyst rophy, congestive heart failure with diastolic dysfunction, hypertensive heart and kidney disease, GE RD, pneumonia, colonoscopy, EGD, Tesio right rubber catheter, right knee fracture and patellectomy. Family History: Father had a cancer. Mother with hypertension and cancer. The patient does not kno w more information about origin of the cancer. Social History: Denies tobacco, alcohol, or illicit drug. Review of Systems: Eyes: Denies vision changes. Ears, Nose, Mouth, and Throat: Denies sore throat or earache. Respiratory: He has shortness of breath at rest, PND, orthopnea. Cardiovascular: Chest pain in the middle of the chest, substernal, radiating to the upper abdomen. Musculoskeletal: Denies muscle aches or joint swelling. He has extremity edema. Neurologic: Denies seizure. All other systems reviewed and all are negative. Physical Examination: Vital Signs: Blood pressure 180/92, heart rate 80, respiratory rate 19, temperature 97.7, pulse oxim eter 100% on room air. General: The patient is alert, not in apparent distress. Oriented x3. Eyes: Anicteric sclerae. EOMI. Ears, Nose, Mouth, and Throat: Oral mucosa moist. No pallor. Neck: Supple. No bruits. Lungs: Coarse breath sound bilaterally. Heart: S1, S2. No pericardial friction rub. Abdomen: Soft, benign, nontender. Extremities: Edema present in both legs. Skin: Warm and dry. No skin rashes. Neurologic: No tremor. Cranial nerves intact. Laboratory Data: WBC 19.5, hemoglobin 6.5, hematocrit 20.4, platelet count 152,000. Sodium 131, pot assium 6.4, BUN 106, creatinine 12.1, glucose 60, magnesium 2.0. Impression And Plan: 1.End-stage renal disease, hyperazotemia, hyperkalemia. The patient will have dialysis with ultrafi ltration to control hyperazotemia and treat hyperkalemia. The patient has pulmonary edema, fluid ove rload. Ultrafiltration will be done to control volemia. The patient will continue low-sodium diet a nd p.o. fluid restriction. 2.End-stage renal disease. The patient may require daily dialysis to control hyperazotemia. Plan i s to re-evaluate blood work in the morning. 3.Non-ST elevation myocardial infarction with history of chronic diastolic congestive heart failure. The patient previously had catheterization, which showed 30% stenosis in LAD. The patient may need further workup and possible stent. 4.Leukocytosis and possible sepsis. The patient will be treated with empirical antibiotics for pneu monia. 5.Anemia, severe. The patient is to have blood transfusion and plan is to continue SCARLETT. 6.Renal osteodystrophy. Monitor phosphorus level and adjust binders. EB/MODL Voice ID: [id number] Report ID: [id number]
[2019-12-29 03:33] LABS: Absolute Lymphocytes (CBC) 0.7 K/uL (0.7-4.9); Basophils % 0.2 % (0-1.3); Hematocrit 24.7 % (39.6-49.0); Lymphocytes % 4.5 % (15.3-44.8); RBC Red Blood Cell Count 2.75 M/uL (4.33-5.43)
[2019-12-29 03:47] LABS: Magnesium 1.9 mg/dL (1.8-2.4); Potassium 5.3 mmol/L (3.5-5.1)
[2019-12-29] MEDS: INSULIN -REGULAR HUMAN 50 UNIT/0.5 ML ML SQ SCH ×4 (07:30→21:14)
[2019-12-29] MEDS: HYDROCODONE/APAP 7.5/325 MG TAB PO PRN ×2 (08:35→18:49)
[2019-12-29] MEDS: AMLODIPINE 10 MG TAB PO SCH (08:35)
[2019-12-29] MEDS: METOPROLOL TAR 25 MG TAB PO SCH ×2 (08:35→21:14)
[2019-12-29] MEDS: HYDRALAZINE HCL 25 MG TABLET PO SCH ×3 (08:36→21:12)
[2019-12-29] MEDS: PANTOPRAZOLE 40MG TABLET PO SCH (08:36)
[2019-12-29] MEDS: NEPRO SHAKE 237 ML CAN PO SCH ×3 (08:37→21:22)
--- NOTE | 2019-12-29 11:01 | P.PN ---
Subjective Date of Service: 12/29/19 Chief Complaint: Pulmonary edema/NSTEMI/anemia Subjective: Improving, Doing well Physical Examination - Vital Signs Temperature: 97.4 F Blood Pressure: 182/85 Pulse: 69 Respirations: 16 Pulse Ox (%): 98 - Physical Exam General: Alert, Cooperative HEENT: Atraumatic Neck: Supple Respiratory: Clear to auscultation bilaterally, Normal air movement Cardiovascular: Normal pulses, Regular rate/rhythm Gastrointestinal: Normal bowel sounds, Soft and benign, Non-distended, No tenderness, No masses, No rebound, No guarding Neurological: Normal speech, Normal strength at 5/5 x4 extr, Normal tone, Normal affect - Studies Microbiology Data (last 24 hrs): 12/28/19 02:20 Blood - Blood Anaerobic Blood Culture - Final Medications List Reviewed: Yes Assessment & Plan Discharge Plan: Home Plan to discharge in: 24 Hours Physician Review Additional Text: Impression: Dyspnea secondary to pulmonary edema likely related to noncompliance with dialysis and underlying acute on chronic diastolic CHF End-stage renal disease on hemodialysis with hyperkalemia Elevated troponin likely stress reaction related to above Anemia of chronic disease Noncompliance with follow up Plan: Dyspnea secondary to pulmonary edema likely related to noncompliance with dialysis and underlying acute on chronic diastolic CHF: Patient received dialysis yesterday. Patient likely requires dialysis scan today. Address compliance with patient. Address fluid restriction. Will discuss with nephrology about possible discharge today. If not anticipate discharge within the next 24 hr. I will turn the service over to the hospitalist team tomorrow. I will go over plan of care with him. End-stage renal disease on hemodialysis with hyperkalemia: Renal function improved. Patient may required dialysis again today. Will discuss with nephrology. Elevated troponin likely stress reaction related to above: Will continue monitor closely. Patient had a full workup 1 month ago. Heart catheterization showed 30% stenosis of the LAD. Rest of cardiac arteries unremarkable. Echocardiogram shows EF of 55% with diastolic dysfunction. Will continue to trend troponin. Will discuss with cardiology. Likely no need for intervention. Anemia of chronic disease: Hemoglobin stable and improved. Patient received blood transfusion during dialysis yesterday.. Hypertension: Continue home medication Hyperlipidemia: Continue home medication Noncompliance with follow up: Compliance addressed in detail with the patient. Patient understands this. Risks address with continued noncompliance. Time Spent Managing Pts Care (In Minutes): 55
--- NOTE | 2019-12-29 11:49 | P.PN ---
Subjective Date of Service: 12/29/19 Chief Complaint: Pulmonary edema/NSTEMI/anemia Pt with ESRD, admitted for SOB and chest pain pt is non compliant with HD , last HD was ~3wks ago pt had cardiac cath last year with 30% LAD stenosis today in mild -moderate distress , feels weak HD today again then TTsat cardiology evaluation Physical exam general: Awake and alert , in mild distress Neck; Supple, No elevated JVD hear: RRR, normal S1,2 no murmur or rub Chest: CTAB, no rales or wheezes Abdomen: Soft , Nt Extremities no edema, Lt knee with cast A/P ESRD on HD TTsat HD as per schedule renal dose meds Chest pain pt had cardiac cath last year with 30% LAD stenosis trend CE cardiology evaluation hyperkalmeia HD today Pulmonary edema HD today Anemia of chronic disease cont Epogen MBD cont binders HTN will increase hydralazine total time spent 40min Physical Examination - Vital Signs Temperature: 97.4 F Blood Pressure: 182/85 Pulse: 69 Respirations: 16 Pulse Ox (%): 98 - Studies Microbiology Data (last 24 hrs): 12/28/19 02:20 Blood - Blood Anaerobic Blood Culture - Final Medications List Reviewed: Yes
[2019-12-29] MEDS: GABAPENTIN 400 MG CAP PO SCH ×2 (14:07→21:13)
[2019-12-29] MEDS: EPOETIN ALFA 10,000 UNIT/ML VIAL IV SCH (16:18)
[2019-12-29] MEDS: RISPERIDONE 1 MG TABLET PO SCH (21:13)
[2019-12-29] MEDS: ATORVASTATIN 20 MG TAB PO SCH (21:14)
[2019-12-29] MEDS: TRAMADOL HCL 50 MG TAB PO PRN (21:20)
[2019-12-30] MEDS: HYDROCODONE/APAP 7.5/325 MG TAB PO PRN ×3 (01:00→20:49)
[2019-12-30] MEDS: HEPARIN 5000 UNIT/ML 1 ML VIAL SQ SCH ×3 (01:00→16:48)
[2019-12-30] MEDS: TRAMADOL HCL 50 MG TAB PO PRN (06:02)
[2019-12-30] MEDS: Levofloxacin 250mg IV 250 MG/50 ML BAG IV SCH (06:03)
[2019-12-30] MEDS: INSULIN -REGULAR HUMAN 50 UNIT/0.5 ML ML SQ SCH ×4 (07:30→21:00)
[2019-12-30] MEDS: METOPROLOL TAR 25 MG TAB PO SCH ×2 (08:52→20:50)
[2019-12-30] MEDS: GABAPENTIN 400 MG CAP PO SCH ×3 (08:52→20:49)
[2019-12-30] MEDS: HYDRALAZINE HCL 25 MG TABLET PO SCH ×3 (08:52→20:50)
[2019-12-30] MEDS: AMLODIPINE 10 MG TAB PO SCH (08:53)
[2019-12-30] MEDS: PANTOPRAZOLE 40MG TABLET PO SCH (08:53)
[2019-12-30] MEDS: NEPRO SHAKE 237 ML CAN PO SCH ×3 (10:29→21:00)
--- NOTE | 2019-12-30 11:40 | PN ---
Date of Progress Note: 12/30/2019 Subjective: The patient was admitted. Had missed dialysis for 2 week. Came with nausea, vomiting, shortness of breath, over volume. The patient was dialyzed on a daily basis. Tolerated the dialysis very well. The patient had dialyzed yesterday. We managed to remove 2800. Blood pressure stabilized. The patient currently complaining of nausea. Objective: Vital Signs: Blood pressure 176/83, pulse of 67, afebrile. Chest: Faint rales on the left base. Heart: S1, S2. Systolic murmur. Abdomen: Soft, nontender. Extremities: Trace edema. Neurologic: Alert. Nonfocal. No tremor. Laboratory Data: WBC 15.8, H and H 8.2/24.7, platelets of 110. Sodium 144, potassium 5.3, bicarb 24, BUN 68, creatinine 8.1, calcium 7.5, magnesium 1.9. Assessment And Plan: 1. End-stage renal disease, poor compliance, missed dialysis, was uremic and over volume with hyperkalemia, status post daily dialysis, currently more stable. I am going to switch the patient to dialysis to 3 times a week and we will continue to monitor. 2. Hypertension, not controlled. I am going to resume his hydralazine. 3. We will start the patient on losartan given the nephrotic range of proteinuria and we will follow up. 4. Hyperkalemia, status post dialysis, resolved. 5. Anemia of chronic kidney disease. We will start the patient on SCARLETT. 6. Over volume. The patient responds to dialysis. We will follow up. Currently normal volume. We will change dialysis to 3 times a week. 7. Nephrotic range of proteinuria, hepatitis C, light chain disease. Add losartan. Time spend for patient Care face to face , ordering and discussing the plan of care with staff 35 min ROMAN Voice ID: [id number] Report ID: [id number] KATIE
[2019-12-30] MEDS: METOCLOPRAMIDE 10 MG/2mL INJ IV SCH ×3 (13:01→20:49)
--- NOTE | 2019-12-30 17:28 | P.PN ---
Subjective Date of Service: 12/30/19 Chief Complaint: Pulmonary edema/NSTEMI/anemia Patient is doing well. No issues overnight. His appetite is good and finishes all his meals. He denies shortness of breath. Physical Examination - Vital Signs Temperature: 97.0 F Blood Pressure: 126/65 Pulse: 71 Respirations: 16 Pulse Ox (%): 95 - Physical Exam General: Alert, In no apparent distress, Oriented x3 HEENT: Mucous membr. moist/pink, Sclerae nonicteric Neck: Supple, JVD not distended Respiratory: Clear to auscultation bilaterally, Normal air movement Cardiovascular: No edema, Regular rate/rhythm, Normal S1 S2 Gastrointestinal: Normal bowel sounds, Soft and benign, No tenderness Musculoskeletal: No swelling, No erythema Integumentary: No rashes Neurological: Normal strength at 5/5 x4 extr, Cranial nerves 3-12 intact - Studies Medications List Reviewed: Yes Assessment And Plan - Plan Pulmonary edema/acute on chronic diastolic heart failure Noncompliance with dialysis. Nephrology is following. Status post hemodialysis. Patient plan for 3 times per week dialysis. End-stage renal disease on hemodialysis/hyperkalemia Seen by nephrology and patient on hemodialysis schedule. Check BNP in a.m. to follow hyperkalemia Elevated troponin Likely related to decreased clearance from kidney disease. Troponin trended flat. Cardiology Consult given patient history of cocaine abuse. Anemia of chronic disease Status post 2 units PRBC transfusion. Hemoglobin is up to 8. Monitor hemoglobin and transfuse p.r.n. for hemoglobin less than 7. Leukocytosis Unknown significance. WBC count is trending down. Patient is on empiric Levaquin.
[2019-12-30] MEDS: RISPERIDONE 1 MG TABLET PO SCH (20:49)
[2019-12-30] MEDS: ATORVASTATIN 20 MG TAB PO SCH (20:49)
[2019-12-31] MEDS: HEPARIN 5000 UNIT/ML 1 ML VIAL SQ SCH ×3 (00:17→16:01)
[2019-12-31] MEDS: TRAMADOL HCL 50 MG TAB PO PRN ×2 (00:33→13:30)
[2019-12-31 04:28] LABS: Absolute Lymphocytes (CBC) 0.8 K/uL (0.7-4.9); Basophils % 0.5 % (0-1.3); Hematocrit 25.8 % (39.6-49.0); Lymphocytes % 4.7 % (15.3-44.8); RBC Red Blood Cell Count 2.82 M/uL (4.33-5.43)
[2019-12-31 04:41] LABS: Albumin 2.4 g/dL (3.4-5.0)
[2019-12-31] MEDS: INSULIN -REGULAR HUMAN 50 UNIT/0.5 ML ML SQ SCH ×4 (07:30→21:00)
[2019-12-31] MEDS: HYDRALAZINE HCL 25 MG TABLET PO SCH ×3 (08:54→23:43)
[2019-12-31] MEDS: METOCLOPRAMIDE 10 MG/2mL INJ IV SCH ×4 (08:54→23:41)
[2019-12-31] MEDS: METOPROLOL TAR 25 MG TAB PO SCH ×2 (08:55→23:42)
[2019-12-31] MEDS: LOSARTAN POTASSIUM 50 MG TABLET PO SCH (08:55)
[2019-12-31] MEDS: AMLODIPINE 10 MG TAB PO SCH (08:56)
[2019-12-31] MEDS: GABAPENTIN 400 MG CAP PO SCH ×3 (08:56→23:42)
[2019-12-31] MEDS: NEPRO SHAKE 237 ML CAN PO SCH ×3 (08:56→21:00)
[2019-12-31] MEDS: PANTOPRAZOLE 40MG TABLET PO SCH (08:57)
[2019-12-31] MEDS: HYDROCODONE/APAP 7.5/325 MG TAB PO PRN ×2 (08:59→23:42)
[2019-12-31] MEDS ORDERED: METOCLOPRAMIDE 10 MG/2mL INJ ONE (09:59)
[2019-12-31] MEDS ORDERED: METOCLOPRAMIDE 10 MG/2mL INJ IV ONE (10:00)
[2019-12-31] MEDS ORDERED: ONDANSETRON 4 MG/2 ML VIAL ONE (10:01)
[2019-12-31] MEDS: EPOETIN ALFA 10,000 UNIT/ML VIAL IV SCH (10:27)
--- NOTE | 2019-12-31 13:09 | PN ---
Subjective: The patient was seen on dialysis. The patient had chest tightness and nausea and vomiting. Rapid Response was called. Upon my arrival, blood pressure was down to 110. The patient nauseated with vomiting, coughing yellowish phlegm also. Physical Examination: Vital Signs: Blood pressure 110/70, pulse of 98, saturating 92 on room air. Chest: Faint rales, more on the left side. Heart: S1, S2. Systolic murmur. Tachy. Abdomen: Soft, nontender. No guarding or rebound. Extremities: No trace edema. Neurologic: Alert. Nonfocal. Laboratory Data: Chest x-ray on the admission, congestion. Sodium 140, potassium 5, bicarb 24, BUN 55, creatinine 7. WBC 17.6, H and H 8.5/25.8. Medications: The patient is on Levaquin 250 every 48 hours, Epogen, heparin, amlodipine, hydralazine, metoprolol, gabapentin. Assessment And Plan: 1. End-stage renal disease with hypotension on the dialysis. Stop the ultrafiltration, decrease the blood flow to 300, give the patient bolus of 250. We are going to go ahead and do culture from the dialysis catheter and we will proceed to do CT abdomen and pelvis, and I am going to get chest x-ray. We will add coverage on to suspect dialysis catheter infection. We will add vancomycin, continue Levaquin for the time being, and we will follow up culture. 2. Leukocytosis as above. Continue Levaquin. Add vancomycin after each dialysis. 3. Anemia of chronic kidney disease. Continue SCARLETT. 4. Hyperkalemia. The patient dialyzed on 2 potassium baths. 5. Light chain disease. The patient is poor compliant. Continue to monitor. Continue ARB. Time spend for patient Care face to face , ordering and discussing the plan of care with staff 35 min ROMAN Voice ID: [id number] Report ID: [id number] KATIE
--- NOTE | 2019-12-31 13:27 | PN ---
Date of Progress Note: 12/31/2019 Subjective: The patient was admitted after missing dialysis. Patient is scheduled for dialysis today. The patient is complaining from nausea, no vomiting. No chest pain. Patient had leukocytosis. Physical Examination: Vital Signs: When I saw the patient, blood pressure 156/76, pulse of 67. Chest: Faint rales on the base. Heart: S1, S2 regular. Abdomen: Soft, nontender. Extremities: Trace edema. Neurologic: Alert and no focal. Laboratory Data: H and H 8.8/25.8, platelets 119. Sodium 140, potassium 5, bicarb 24, BUN 55, creatinine 7.1, calcium 7.2, phosphorus 5, albumin 2.4. Current Medications: The patient on include, 1. Epogen. 2. Levaquin. 3. Amlodipine 10. 4. Hydralazine 100 t.i.d. 5. Losartan. 6. Metoprolol 25 b.i.d. 7. Gabapentin. 8. Risperidone. 9. Metoclopramide. Assessment And Plan: 1. End-stage renal disease with uremia. We will continue dialysis for the patient. Schedule. 2. Over volume. We will challenge the patient. 3. Anemia of chronic kidney disease. Continue SCARLETT. 4. Hypertension, controlled, We will follow up blood pressure after dialysis. 5. Leukocytosis, unknown etiology. Culture is still pending. time [address] [facility] patient and arrange treatment with the staff ROMAN Voice ID: [id number] Report ID: [id number] KATIE
--- NOTE | 2019-12-31 14:08 | P.PN ---
Subjective Date of Service: 12/31/19 Chief Complaint: Pulmonary edema/NSTEMI/anemia Patient was complaining of nausea this morning. He did not eat his breakfast. He vomited during dialysis today. Noted he has leukocytosis Physical Examination - Vital Signs Temperature: 98.7 F Blood Pressure: 166/73 Pulse: 93 Respirations: 18 Pulse Ox (%): 98 - Physical Exam General: Alert, Mild distress HEENT: Mucous membr. moist/pink Respiratory: Clear to auscultation bilaterally, Normal air movement Cardiovascular: No edema, Regular rate/rhythm, Normal S1 S2 Gastrointestinal: Normal bowel sounds, Soft and benign, Non-distended, No tenderness Musculoskeletal: No swelling Integumentary: No rashes Neurological: Normal strength at 5/5 x4 extr - Studies Medications List Reviewed: Yes Assessment And Plan - Plan Pulmonary edema/acute on chronic diastolic heart failure Noncompliance with dialysis. Nephrology is following. Ongoing hemodialysis Patient plan for 3 times per week dialysis. End-stage renal disease on hemodialysis/hyperkalemia Seen by nephrology and patient on hemodialysis schedule. Monitor BMP Elevated troponin Likely related to decreased clearance from kidney disease. Troponin trended flat. Case discussed with cardiology. Elevated troponin likely related to reduced renal clearance. Anemia of chronic disease Status post 2 units PRBC transfusion. Hemoglobin is up to 8. Monitor hemoglobin and transfuse p.r.n. for hemoglobin less than 7. Leukocytosis Unknown significance. WBC count is up again today. Obtain blood cultures. Continue IV Levaquin. Add vancomycin today. Follow blood cultures.
[2019-12-31] MEDS ORDERED: VANCOMYCIN/NS 1 gm 1 GM/250 ML BAG IVPB ONE (14:10)
--- NOTE | 2019-12-31 15:13 | RAD REPORT ---
EXAM DESCRIPTION: CT - Abdomen Pelvis W Contrast - 12/31/2019 2:08 pm CLINICAL HISTORY: nausea, pain COMPARISON: Abdomen Pelvis W Contrast dated 06/08/2016 TECHNIQUE: Biphasic, helical CT imaging of the abdomen and pelvis was performed following 100 ml non -ionic IV contrast. Sagittal and coronal reconstruction images were generated and reviewed. Oral contrast was given. All CT scans are performed using dose optimization technique as appropriate and may include automated exposure control or mA/KV adjustment according to patient size. FINDINGS: Moderate-sized right pleural effusion is present only partially imaged on this study. Ther e is partial atelectasis of the right lower lobe. Trace left pleural effusion is present with partial atelectasis. No mass or consolidation identified in the lung bases. Heart size is upper normal. No p ericardial effusion. Patient has fluid retention throughout the subcutaneous fatty tissues as well as within the peritonea l and retroperitoneal fatty tissues. Overall enhancement pattern of the solid abdominal visceral with indicate decreased cardiac function. Liver shows a nodular capsule contour. Left lobe is prominent. Cirrhosis or diffuse hepatic parenchym al disease would be a consideration and needs correlation. No focal liver lesions seen. Spleen is upper normal in size. No focal splenic lesion. No acute pancreatic process seen. Multiple s andlike stones layering in the dependent portion of the gallbladder. No biliary tree dilatation. Symmetric renal function is seen with no hydronephrosis or suspicious renal mass. No pyelonephritis o r acute parenchymal process. Small cyst is present in the upper pole of the right kidney increased sl ightly from 2017. Urinary bladder is mostly contracted. This accentuates bladder wall thickness. No a drenal abnormalities. No dilated bowel loops or bowel wall thickening. Diverticulosis is present without diverticulitis haim pected. No appendicitis findings. Moderate stool volume present in the colon. No free air or pneumato sis. No hernia, mass or bulky lymphadenopathy. Small nonspecific bilateral inguinal lymph nodes are present. Prominent degenerative changes are present at the T11-12 disc level. There is wedging with height los s along the right lateral margin of T12 and along the left lateral margin of T11. In T11 there is add itional cystic change in the left lateral aspect of the vertebral body. This is favored to be a degen erative process rather than a bone destruction process. Correlation is needed with any pain symptoms at the thoracolumbar junction. IMPRESSION: Anasarca pattern with minimal left-side and moderate right-sided pleural effusions. Enh ancement pattern of solid visceral suggests diminished cardiac function. No focal liver lesions seen. Liver findings are questionable for cirrhosis or diffuse hepatic parench ymal disease. Cholelithiasis without acute gallbladder or biliary tree finding. Advanced degenerative change at the T11-12 level. The bone loss change in the left lateral margin of T11 is favored to be part of a chronic degenerative process rather than a bone destructive neoplastic process.
[2019-12-31] MEDS: ACETAMINOPHEN 500 MG TAB PO PRN (18:51)
[2019-12-31 19:56] LABS: HBsAG Nonreactive (Nonreactive)
[2019-12-31] MEDS: RISPERIDONE 1 MG TABLET PO SCH (23:42)
[2019-12-31] MEDS: ATORVASTATIN 20 MG TAB PO SCH (23:43)
[2020-01-01] MEDS: HEPARIN 5000 UNIT/ML 1 ML VIAL SQ SCH ×3 (01:32→16:02)
[2020-01-01 06:12] LABS: Hematocrit 26.8 % (39.6-49.0)
[2020-01-01 06:13] LABS: Absolute Lymphocytes (CBC) 0.9 K/uL (0.7-4.9); Basophils % 0.5 % (0-1.3); Lymphocytes % 3.9 % (15.3-44.8); MPV 9.3 fL (7.6-11.3)
[2020-01-01 06:26] LABS: Albumin 2.3 g/dL (3.4-5.0); Phosphorus 3.9 mg/dL (2.5-4.9); Potassium 4.9 mmol/L (3.5-5.1)
[2020-01-01 06:46] LABS: Anisocytosis SLIGHT; Blood Morphology Comment NOTED (NOT SEEN); Platelet Estimate DECR; Polychromasia SLIGHT
[2020-01-01] MEDS: Levofloxacin 250mg IV 250 MG/50 ML BAG IV SCH (07:19)
[2020-01-01] MEDS: INSULIN -REGULAR HUMAN 50 UNIT/0.5 ML ML SQ SCH ×4 (07:30→21:00)
[2020-01-01] MEDS: METOCLOPRAMIDE 10 MG/2mL INJ IV SCH ×4 (08:47→21:00)
[2020-01-01] MEDS: GABAPENTIN 400 MG CAP PO SCH ×3 (08:48→21:45)
[2020-01-01] MEDS: HYDRALAZINE HCL 25 MG TABLET PO SCH ×3 (08:48→21:00)
[2020-01-01] MEDS: METOPROLOL TAR 25 MG TAB PO SCH ×2 (08:49→21:45)
[2020-01-01] MEDS: LOSARTAN POTASSIUM 50 MG TABLET PO SCH (08:49)
[2020-01-01] MEDS: PANTOPRAZOLE 40MG TABLET PO SCH (08:49)
[2020-01-01] MEDS: AMLODIPINE 10 MG TAB PO SCH (08:50)
[2020-01-01] MEDS: NEPRO SHAKE 237 ML CAN PO SCH ×3 (08:50→21:46)
--- NOTE | 2020-01-01 11:51 | P.PN ---
Subjective Date of Service: 01/01/20 Chief Complaint: Pulmonary edema/NSTEMI/anemia Pt with ESRD, admitted for SOB and chest pain pt is non compliant with HD , last HD was ~3wks ago pt had cardiac cath last year with 30% LAD stenosis today No change HD TTsat WBC trending up , will switch Abx to zosyn F/U cultures Physical exam general: sleeping , NAD Neck; Supple, No elevated JVD hear: RRR, normal S1,2 no murmur or rub Chest: CTAB, no rales or wheezes Abdomen: Soft , Nt Extremities no edema, Lt knee with cast A/P ESRD on HD TTsat via Rt IJ cath HD as per schedule renal dose meds Chest pain pt had cardiac cath last year with 30% LAD stenosis trend CE cardiology evaluation hyperkalmeia HD today Pulmonary edema resolved cont HD Anemia of chronic disease cont Epogen MBD cont binders HTN will increase hydralazine total time spent 40min Physical Examination - Vital Signs Temperature: 98.2 F Blood Pressure: 144/70 Pulse: 82 Respirations: 20 Pulse Ox (%): 98 - Studies Medications List Reviewed: Yes
--- NOTE | 2020-01-01 13:09 | P.PN ---
Subjective Date of Service: 01/01/20 Chief Complaint: Pulmonary edema/NSTEMI/anemia Patient report feeling better today compared to yesterday. He finished his breakfast this morning. No vomiting today. Leukocytosis worse today. He had a fever yesterday evening. Physical Examination - Vital Signs Temperature: 98.2 F Blood Pressure: 144/70 Pulse: 82 Respirations: 20 Pulse Ox (%): 98 - Physical Exam General: Alert, In no apparent distress HEENT: Mucous membr. moist/pink Respiratory: Clear to auscultation bilaterally, Normal air movement Cardiovascular: No edema, Regular rate/rhythm, Normal S1 S2, Edema (Bilateral upper extremities and lower extremities.) Gastrointestinal: Normal bowel sounds, Soft and benign, Non-distended, No tenderness Musculoskeletal: Swelling (Bilateral upper extremities) Integumentary: No rashes Neurological: Normal strength at 5/5 x4 extr, Cranial nerves 3-12 intact - Studies Medications List Reviewed: Yes Assessment And Plan - Plan Pulmonary edema/acute on chronic diastolic heart failure Noncompliance with dialysis. Nephrology is following. Ongoing hemodialysis Patient planned for 3 times per week dialysis. End-stage renal disease on hemodialysis/hyperkalemia Seen by nephrology and patient on hemodialysis schedule. Monitor BMP Elevated troponin Likely related to decreased clearance from kidney disease. Troponin trended flat. Case discussed with cardiology. Elevated troponin likely related to reduced renal clearance. No further cardiac intervention. Anemia of chronic disease Status post 2 units PRBC transfusion. Hemoglobin is up to 8. Monitor hemoglobin and transfuse p.r.n. for hemoglobin less than 7. Leukocytosis Unknown significance. Getting worse. Blood cultures: No growth to date. Urine culture: Mixed growth Continue IV Levaquin. Vancomycin with hemodialysis. COVID negative. Follow blood cultures.
[2020-01-01] MEDS: RISPERIDONE 1 MG TABLET PO SCH (21:00)
[2020-01-01] MEDS: ATORVASTATIN 20 MG TAB PO SCH (21:45)
[2020-01-01] MEDS: PIPER/TAZO/NS 2.25gm 2.25 GM/50 ML BAG IVPB SCH (21:46)
[2020-01-02] MEDS: HEPARIN 5000 UNIT/ML 1 ML VIAL SQ SCH ×3 (00:42→16:55)
[2020-01-02] MEDS: BENZONATATE 100 MG CAP PO PRN ×2 (04:59→12:25)
[2020-01-02 06:14] LABS: Absolute Lymphocytes (CBC) 0.9 K/uL (0.7-4.9); Basophils % 0.1 % (0-1.3); Hematocrit 23.8 % (39.6-49.0); Lymphocytes % 4.3 % (15.3-44.8); MPV 9.8 fL (7.6-11.3); RBC Red Blood Cell Count 2.57 M/uL (4.33-5.43)
[2020-01-02 06:35] LABS: Albumin 2.3 g/dL (3.4-5.0); Magnesium 2.1 mg/dL (1.8-2.4); Phosphorus 4.6 mg/dL (2.5-4.9); Potassium 5.2 mmol/L (3.5-5.1)
[2020-01-02] MEDS: INSULIN -REGULAR HUMAN 50 UNIT/0.5 ML ML SQ SCH ×4 (07:30→21:50)
[2020-01-02] MEDS: GABAPENTIN 400 MG CAP PO SCH ×3 (07:59→21:30)
[2020-01-02] MEDS: PANTOPRAZOLE 40MG TABLET PO SCH (07:59)
[2020-01-02] MEDS: METOCLOPRAMIDE 10 MG/2mL INJ IV SCH ×4 (07:59→21:00)
[2020-01-02] MEDS: AMLODIPINE 10 MG TAB PO SCH (08:00)
[2020-01-02] MEDS: METOPROLOL TAR 25 MG TAB PO SCH ×2 (08:00→21:30)
[2020-01-02] MEDS: PIPER/TAZO/NS 2.25gm 2.25 GM/50 ML BAG IVPB SCH ×2 (08:00→21:31)
[2020-01-02] MEDS: HYDRALAZINE HCL 25 MG TABLET PO SCH ×3 (08:01→21:00)
[2020-01-02] MEDS: LOSARTAN POTASSIUM 50 MG TABLET PO SCH (09:00)
[2020-01-02] MEDS: NEPRO SHAKE 237 ML CAN PO SCH ×3 (09:00→21:31)
[2020-01-02 09:41] LABS: Anisocytosis 1+; Blood Morphology Comment NOTED (NOT SEEN); Platelet Estimate DECR; Urine White Blood Cell Casts OK
[2020-01-02] MEDS: PHENOL 1.4% ORAL SPRAY 180ML MM PRN ×2 (12:48→21:33)
--- NOTE | 2020-01-02 14:59 | P.PN ---
Subjective Date of Service: 01/02/20 Chief Complaint: Pulmonary edema/NSTEMI/anemia Pt with ESRD, admitted for SOB and chest pain pt is non compliant with HD , last HD was ~3wks ago pt had cardiac cath last year with 30% LAD stenosis today No new complaints participating in PT/OT HD TTsat Cont zosyn F/U cultures Physical exam general: AAOX3, NAD Neck; Supple, No elevated JVD hear: RRR, normal S1,2 no murmur or rub Chest: CTAB, no rales or wheezes Abdomen: Soft , Nt Extremities no edema, Lt knee with cast A/P ESRD on HD TTsat via Rt IJ cath HD as per schedule renal dose meds Chest pain resolved pt had cardiac cath last year with 30% LAD stenosis trend CE cardiology evaluation hyperkalmeia HD today Pulmonary edema resolved cont HD Anemia of chronic disease cont Epogen MBD cont binders HTN controlled cont current meds leucocytosis chronic cont abx f/u cultures total time spent 40min Physical Examination - Vital Signs Temperature: 98.3 F Blood Pressure: 164/74 Pulse: 73 Respirations: 20 Pulse Ox (%): 96 - Studies Microbiology Data (last 24 hrs): 12/28/19 02:30 Blood - Blood Aerobic Blood Culture - Final No growth in 5 days. 12/28/19 02:30 Blood - Blood Anaerobic Blood Culture - Final No growth in 5 days. 12/28/19 02:20 Blood - Blood Aerobic Blood Culture - Final No growth in 5 days. 12/28/19 02:20 Blood - Blood Anaerobic Blood Culture - Final Medications List Reviewed: Yes
[2020-01-02 16:00] LABS: Hep C Virus RNA (PCR)log 5.11 log IU/mL
--- NOTE | 2020-01-02 18:27 | P.PN ---
Subjective Date of Service: 01/02/20 Chief Complaint: Pulmonary edema/NSTEMI/anemia No major changes from yesterday. Patient noted to have anemia. Leukocytosis none trending down. Physical Examination - Vital Signs Temperature: 97.1 F Blood Pressure: 144/70 Pulse: 73 Respirations: 18 Pulse Ox (%): 92 - Physical Exam General: Alert, In no apparent distress HEENT: Mucous membr. moist/pink, Sclerae nonicteric Neck: Supple Respiratory: Clear to auscultation bilaterally, Normal air movement Cardiovascular: No edema, Regular rate/rhythm, Normal S1 S2 Gastrointestinal: Normal bowel sounds, Soft and benign, No tenderness Musculoskeletal: No erythema Integumentary: No rashes Neurological: Other (Nonfocal) - Studies Microbiology Data (last 24 hrs): 12/28/19 02:30 Blood - Blood Aerobic Blood Culture - Final No growth in 5 days. 12/28/19 02:30 Blood - Blood Anaerobic Blood Culture - Final No growth in 5 days. 12/28/19 02:20 Blood - Blood Aerobic Blood Culture - Final No growth in 5 days. 12/28/19 02:20 Blood - Blood Anaerobic Blood Culture - Final Medications List Reviewed: Yes Assessment And Plan - Plan Pulmonary edema/acute on chronic diastolic heart failure Noncompliance with dialysis. Nephrology is following. Ongoing hemodialysis Patient planned for 3 times per week dialysis. End-stage renal disease on hemodialysis/hyperkalemia Seen by nephrology and patient on hemodialysis schedule. Monitor BMP Elevated troponin Likely related to decreased clearance from kidney disease. Troponin trended flat. Case discussed with cardiology. Elevated troponin likely related to reduced renal clearance. No further cardiac intervention. Anemia of chronic disease Status post 2 units PRBC transfusion. Hemoglobin is up to 8. Monitor hemoglobin and transfuse p.r.n. for hemoglobin less than 7. Leukocytosis Unknown significance. Leukocytosis not trending down. Blood cultures: No growth to date. Urine culture: Mixed growth Continue IV Levaquin. Vancomycin with hemodialysis. COVID negative. Follow cultures.
[2020-01-02] MEDS: RISPERIDONE 1 MG TABLET PO SCH (21:00)
[2020-01-02] MEDS: ATORVASTATIN 20 MG TAB PO SCH (21:30)
--- NOTE | 2020-01-02 22:14 | CON ---
Date of Consultation: 01/02/2020 Reason For Consultation: Elevated troponin. History Of Present Illness: Mr. Trejo is a 64-year-old male with history of end-stage renal disease , diabetes, hypertension, chronic diastolic congestive heart failure. He just recently had a cathete rization less than 2 months ago showing a very minimal coronary artery disease having ejection fracti on that is normal by echo in October of 2019, came in anemic. Creatinine is 7.11. His troponin was anna vated. We were asked for further evaluation and had atypical chest pain. The EKG showed nonspecific changes. Chest x-ray is negative. The patient was in dialysis twice and testing during our visits. Allergies: TO STEROID. Medications: Include Norvasc, Lipitor, hydralazine, insulin, Levaquin, metoprolol, Protonix. Physical Examination: By Dr. Alvarenga reported to be within normal limits without any arrhythmia or evidence of congestive he art failure. He did have some trace edema. He was being dialyzed from our standpoint. Impression: Mr. Trejo's chest pain is noncardiac. His coronary artery diseases are very minimal by catheterization in October of 2019. He has a normal ejection fraction. Diastolic congestive heart radha lure that is stable. He does not need any more cardiac workup at this point. Continue medical regim en. He can go home whenever it is okay with Dr. Alvarenga. REAGAN/AUDIEL Voice ID: [id number] Report ID: [id number]
[2020-01-03] MEDS: HEPARIN 5000 UNIT/ML 1 ML VIAL SQ SCH ×3 (00:24→09:37)
[2020-01-03 06:32] LABS: Absolute Lymphocytes (CBC) 0.9 K/uL (0.7-4.9); Basophils % 0.3 % (0-1.3); Hematocrit 24.5 % (39.6-49.0); Lymphocytes % 4.8 % (15.3-44.8); MPV 8.9 fL (7.6-11.3); RBC Red Blood Cell Count 2.63 M/uL (4.33-5.43)
[2020-01-03 06:35] LABS: Albumin 2.2 g/dL (3.4-5.0); Phosphorus 4.5 mg/dL (2.5-4.9)
[2020-01-03 07:15] LABS: Blood Morphology Comment NOTED (NOT SEEN); Dohle Bodies NOTED; Platelet Estimate DECR; Polychromasia SLIGHT; Toxic Granulation 2+
[2020-01-03] MEDS: INSULIN -REGULAR HUMAN 50 UNIT/0.5 ML ML SQ SCH ×4 (07:30→21:54)
[2020-01-03] MEDS: PIPER/TAZO/NS 2.25gm 2.25 GM/50 ML BAG IVPB SCH ×2 (09:00→21:53)
[2020-01-03] MEDS: NEPRO SHAKE 237 ML CAN PO SCH ×3 (09:00→21:00)
[2020-01-03] MEDS: METOCLOPRAMIDE 10 MG/2mL INJ IV SCH ×4 (09:37→21:54)
[2020-01-03] MEDS: LOSARTAN POTASSIUM 50 MG TABLET PO SCH (09:38)
[2020-01-03] MEDS: HYDRALAZINE HCL 25 MG TABLET PO SCH ×3 (09:38→21:00)
[2020-01-03] MEDS: METOPROLOL TAR 25 MG TAB PO SCH ×2 (09:39→21:00)
[2020-01-03] MEDS: GABAPENTIN 400 MG CAP PO SCH ×3 (09:39→21:54)
[2020-01-03] MEDS: BENZONATATE 100 MG CAP PO PRN (09:39)
[2020-01-03] MEDS: PANTOPRAZOLE 40MG TABLET PO SCH (09:39)
[2020-01-03] MEDS: AMLODIPINE 10 MG TAB PO SCH (09:39)
[2020-01-03] MEDS: PHENOL 1.4% ORAL SPRAY 180ML MM PRN (09:40)
[2020-01-03] MEDS: cloNIDine HCL 0.1 MG TAB PO SCH ×2 (10:02→21:00)
--- NOTE | 2020-01-03 11:27 | P.PN ---
Subjective Date of Service: 01/03/20 Chief Complaint: Pulmonary edema/NSTEMI/anemia Patient states he is feeling better. Leukocytosis continue to trend down. No fever recorded. Physical Examination - Vital Signs Temperature: 98.1 F Blood Pressure: 170/82 Pulse: 73 Respirations: 20 Pulse Ox (%): 97 - Physical Exam General: Alert, In no apparent distress Neck: Supple Respiratory: Clear to auscultation bilaterally, Normal air movement Cardiovascular: Regular rate/rhythm, Normal S1 S2, Edema (Trace bilateral lower extremity edema.) Gastrointestinal: Normal bowel sounds, Soft and benign, No tenderness Neurological: Other (Nonfocal.) - Studies Medications List Reviewed: Yes Assessment And Plan - Plan Pulmonary edema/acute on chronic diastolic heart failure Noncompliance with dialysis. Nephrology is following. Ongoing hemodialysis. Status post hemodialysis yesterday. End-stage renal disease on hemodialysis/hyperkalemia Seen by nephrology and patient on hemodialysis schedule. Monitor BMP Elevated troponin Likely related to decreased clearance from kidney disease. Troponin trended flat. Patient seen by cardiology. No further cardiac intervention. Anemia of chronic disease Status post 2 units PRBC transfusion. Hemoglobin is down to 7.8 Monitor hemoglobin and transfuse p.r.n. for hemoglobin less than 7. Leukocytosis Unknown significance. Leukocytosis is trending down. Blood cultures: No growth to date. Urine culture: Mixed growth Continue IV Levaquin. Vancomycin with hemodialysis. COVID negative.
--- NOTE | 2020-01-03 12:04 | P.PN ---
Subjective Date of Service: 01/03/20 Chief Complaint: Pulmonary edema/NSTEMI/anemia Pt with ESRD, admitted for SOB and chest pain pt is non compliant with HD , last HD was ~3wks ago pt had cardiac cath last year with 30% LAD stenosis today No new complaints , still feeling weak participating in PT/OT HD TTsat Cont zosyn WBC trending down , will cont abx , cultures so far negative refusing to take meds Physical exam general: Awake and alert, in mild to moderate distress Neck; Supple, No elevated JVD hear: RRR, normal S1,2 no murmur or rub Chest: CTAB, no rales or wheezes Abdomen: Soft , Nt Extremities no edema, Lt knee with cast A/P ESRD on HD TTsat via Rt IJ cath HD as per schedule renal dose meds Chest pain resolved pt had cardiac cath last year with 30% LAD stenosis trend CE cardiology evaluation Pulmonary edema resolved cont HD Anemia of chronic disease cont Epogen MBD cont binders HTN refusing to take meds cont current meds leucocytosis cont abx f/u cultures total time spent 40min Physical Examination - Vital Signs Temperature: 98.1 F Blood Pressure: 170/82 Pulse: 73 Respirations: 20 Pulse Ox (%): 97 - Studies Medications List Reviewed: Yes
[2020-01-03] MEDS: RISPERIDONE 1 MG TABLET PO SCH (21:00)
[2020-01-03] MEDS: ATORVASTATIN 20 MG TAB PO SCH (21:54)
[2020-01-04 05:51] LABS: Absolute Lymphocytes (CBC) 0.6 K/uL (0.7-4.9); Basophils % 0.3 % (0-1.3); Hematocrit 24.1 % (39.6-49.0); Lymphocytes % 4.3 % (15.3-44.8); MPV 9.1 fL (7.6-11.3)
[2020-01-04 06:10] LABS: Albumin 2.2 g/dL (3.4-5.0); Phosphorus 5.8 mg/dL (2.5-4.9)
[2020-01-04 06:53] VITALS: BMI 27.8
[2020-01-04] MEDS: INSULIN -REGULAR HUMAN 50 UNIT/0.5 ML ML SQ SCH ×4 (07:30→21:00)
[2020-01-04] MEDS: METOCLOPRAMIDE 10 MG/2mL INJ IV SCH ×3 (07:30→16:30)
[2020-01-04] MEDS: ACETAMINOPHEN 500 MG TAB PO PRN (08:07)
[2020-01-04] MEDS: PIPER/TAZO/NS 2.25gm 2.25 GM/50 ML BAG IVPB SCH ×2 (08:07→22:29)
[2020-01-04] MEDS: BENZONATATE 100 MG CAP PO PRN (08:08)
[2020-01-04] MEDS: GABAPENTIN 400 MG CAP PO SCH ×3 (08:08→22:31)
[2020-01-04] MEDS: PANTOPRAZOLE 40MG TABLET PO SCH (08:08)
[2020-01-04] MEDS: LOSARTAN POTASSIUM 50 MG TABLET PO SCH (08:10)
[2020-01-04] MEDS: METOPROLOL TAR 25 MG TAB PO SCH ×2 (08:10→21:00)
[2020-01-04] MEDS: NEPRO SHAKE 237 ML CAN PO SCH (08:11)
[2020-01-04] MEDS: HYDRALAZINE HCL 25 MG TABLET PO SCH ×3 (08:11→21:00)
[2020-01-04] MEDS: cloNIDine HCL 0.1 MG TAB PO SCH ×2 (08:11→21:00)
[2020-01-04] MEDS: AMLODIPINE 10 MG TAB PO SCH (08:12)
[2020-01-04] MEDS: LOPERAMIDE HCL 2 MG CAPSULE PO PRN ×2 (09:40→17:59)
[2020-01-04] MEDS ORDERED: VANCOMYCIN/NS 1 gm 1 GM/250 ML BAG IV SCH (10:45)
[2020-01-04] MEDS ORDERED: NEPRO SHAKE 237 ML CAN PO PRN (11:47)
[2020-01-04] MEDS ORDERED: LOPERAMIDE HCL 2 MG CAPSULE PO ONE (12:06)
[2020-01-04] MEDS: RISPERIDONE 1 MG TABLET PO SCH (21:00)
[2020-01-04] MEDS: ATORVASTATIN 20 MG TAB PO SCH (22:31)
[2020-01-05] MEDS: LOPERAMIDE HCL 2 MG CAPSULE PO PRN ×2 (00:06→09:11)
--- NOTE | 2020-01-05 02:38 | PN ---
Date of Progress Note: 01/04/2020 Chief Complaint: Pulmonary edema, [id number] myocardial infarction. Subjective: The patient is admitted to the hospital because of shortness of breath. He received roya lysis to control volemia. He was found to have [id number] myocardial infarction and severe ane janet. He received blood transfusion and SCARLETT was resumed. The patient has history of noncompliance. He missed 1 week of his dialysis prior to admission to the hospital. Review of Systems: Denies PND, orthopnea. The patient is feeling better. Physical Examination: Lungs: Diminished breath sounds at bases. Heart: S1, S2. Abdomen: Soft, benign. Extremities: Slight edema. Impression And Plan: 1.End-stage renal disease. Next dialysis tomorrow. 2.Anemia. The patient received blood transfusion. Continue SCARLETT. 3.Renal osteodystrophy. Continue renal diet and binders. Phosphorus level is in acceptable control . Today, phosphorus level was 5.8. ANSLEY/ZULEIMA Voice ID: [id number] Report ID: [id number]
--- NOTE | 2020-01-05 05:30 | P.PN ---
Subjective Date of Service: 01/04/20 Subjective: No new changes, No C/O voiced, Improving Review of Systems 10-point ROS is otherwise unremarkable Physical Examination - Vital Signs Temperature: 97.6 F Blood Pressure: 130/60 Pulse: 83 Respirations: 18 Pulse Ox (%): 98 - Physical Exam General: Alert, In no apparent distress, Oriented x3 Respiratory: Diminished, Crackles/rales Cardiovascular: Regular rate/rhythm, Normal S1 S2, Systolic murmur Gastrointestinal: Normal bowel sounds, Soft and benign, Non-distended, No tenderness Musculoskeletal: No clubbing, No swelling, No tenderness Neurological: Sensation intact, Cranial nerves 3-12 intact - Studies Medications List Reviewed: Yes Assessment & Plan - Problems (Diagnosis) (1) Diabetes Onset Date: 07/15/17 Current Visit: No Status: Acute Qualifiers: Diabetes mellitus type: type 2 Diabetes mellitus terminal press operator insulin use: with terminal press operator use Diabetes mellitus complication status: without complication Qualified Code(s): E11.9 - Type 2 diabetes mellitus without complications; Z79.4 - terminal press operator (current) use of insulin (2) Gastric ulcer Onset Date: 10/09/17 Current Visit: No Status: Acute Qualifiers: Gastric ulcer chronicity: chronic Gastric ulcer complication status: without hemorrhage or perforation Qualified Code(s): K25.7 - Chronic gastric ulcer without hemorrhage or perforation (3) Generalized weakness Current Visit: No Status: Acute (4) HTN (hypertension) Onset Date: 07/15/17 Current Visit: No Status: Acute Qualifiers: Hypertension type: essential hypertension (5) Hepatitis C Onset Date: 10/09/17 Current Visit: No Status: Acute Qualifiers: Viral hepatitis chronicity: chronic Hepatic coma status: without hepatic coma Qualified Code(s): B18.2 - Chronic viral hepatitis C (6) Severe anemia Onset Date: 10/10/16 Current Visit: No Status: Acute (7) Cocaine abuse Onset Date: 04/08/17 Current Visit: No Status: Chronic (8) ESRD (end stage renal disease) on dialysis Onset Date: 03/13/18 Current Visit: No Status: Chronic - Plan PLAN: 1. MONITOR H&H CLOSELY 2. HEMODIALYSIS PER NEPHROLOGY 3. MONITOR LEUKOCYTOSIS CLOSELY 4. STRICT BLOOD SUGAR AND BLOOD PRESSURE CONTROL 5. PHYSICAL THERAPY EVALUATION 6. HISTORY OF HEPATITIS-C OUTPATIENT FOLLOW-UP WITH GI 7. LUNG MASS NEEDS TO BE FOLLOWED UP WITH REPEAT IMAGING IN 6-12 WEEKS 8. PATIENT WITH PLEURAL EFFUSION WHICH WILL RESOLVE GRADUALLY WITH HEMODIALYSIS 9. GI AND DVT PROPHYLAXIS - Advance Directives Does patient have a Living Will: No Does patient have a Durable POA for Healthcare: No
[2020-01-05 06:41] LABS: Absolute Lymphocytes (CBC) 0.8 K/uL (0.7-4.9); Basophils % 0.3 % (0-1.3); Hematocrit 24.9 % (39.6-49.0); Lymphocytes % 5.1 % (15.3-44.8); MPV 8.5 fL (7.6-11.3); RBC Red Blood Cell Count 2.71 M/uL (4.33-5.43)
[2020-01-05 07:06] LABS: Magnesium 2.2 mg/dL (1.8-2.4)
[2020-01-05 07:07] LABS: Potassium 5.7 mmol/L (3.5-5.1)
[2020-01-05] MEDS: METOCLOPRAMIDE 10 MG/2mL INJ IV SCH ×3 (07:30→15:36)
[2020-01-05] MEDS: INSULIN -REGULAR HUMAN 50 UNIT/0.5 ML ML SQ SCH ×5 (07:30→21:47)
[2020-01-05] MEDS: PIPER/TAZO/NS 2.25gm 2.25 GM/50 ML BAG IVPB SCH ×2 (08:00→21:47)
[2020-01-05] MEDS: HYDRALAZINE HCL 25 MG TABLET PO SCH ×3 (08:16→21:47)
[2020-01-05] MEDS: GABAPENTIN 400 MG CAP PO SCH ×3 (08:17→21:47)
[2020-01-05] MEDS: cloNIDine HCL 0.1 MG TAB PO SCH ×2 (08:17→21:00)
[2020-01-05] MEDS: METOPROLOL TAR 25 MG TAB PO SCH ×2 (08:17→21:46)
[2020-01-05] MEDS: LOSARTAN POTASSIUM 50 MG TABLET PO SCH (08:17)
[2020-01-05] MEDS: AMLODIPINE 10 MG TAB PO SCH (08:18)
[2020-01-05] MEDS: PANTOPRAZOLE 40MG TABLET PO SCH (08:18)
[2020-01-05] MEDS: ACETAMINOPHEN 500 MG TAB PO PRN (09:30)
--- NOTE | 2020-01-05 17:28 | PN ---
Date of Progress Note: 01/05/2020 Subjective: The patient was admitted with uremia secondary to missing dialysis secondary to poor compliance. The patient has been weak. The patient had nausea and vomiting. Culture still negative even from the catheter. Physical Examination: Vital Signs: Blood pressure 149/78, pulse of 80, afebrile. Chest: Clear to auscultation. Heart: S1, S2. Regular. Abdomen: Soft, nontender. Extremity: Trace edema. Laboratory Data: WBC 16, H and H 8.1/24.9, platelet 121. Sodium 139, potassium 5.7, bicarb 23, BUN 63, creatinine 7.4, calcium 7.4, magnesium 2.2. Current Medications: The patient on include; 1. Zosyn 2.25. 2. Vancomycin. 3. Epogen. 4. Amlodipine 10 mg. 5. Atorvastatin. 6. Clonidine 0.1 b.i.d. 7. Losartan 100. 8. Metoprolol. 9. Tylenol . 10. Gabapentin. 11. Loperamide. Assessment And Plan: 1. End-stage renal disease, continue to poor compliant. We will continue the patient on dialysis TTS. Given the recurrent hyperkalemia, the patient is going to be dialyzed on low-potassium bath. 2. Hyperkalemia. The patient is going to be dialyzed on low-potassium bath. We will follow up. 3. Secondary hyperparathyroidism. Continue binder. 4. Anemia of chronic kidney disease, stable. Continue SCARLETT. 5. Hypertension, controlled, optimal, responding to current regimen. We will follow up. 6. Deconditioning. Continue PT, OT. time 35 min discussing wt patient and arrange treatment with the staff ROMAN Voice ID: [id number] Report ID: [id number] KATIE
[2020-01-05] MEDS: EPOETIN ALFA 10,000 UNIT/ML VIAL IV SCH (17:52)
[2020-01-05] MEDS: RISPERIDONE 1 MG TABLET PO SCH (21:00)
[2020-01-05] MEDS: ATORVASTATIN 20 MG TAB PO SCH (21:46)
[2020-01-05] MEDS ORDERED: NA CHLORIDE 0.9% 250 ML ONE (22:23)
[2020-01-05] MEDS ORDERED: VANCOMYCIN 1 GM/VIAL ONE (22:25)
[2020-01-06] MEDS: LOPERAMIDE HCL 2 MG CAPSULE PO PRN ×3 (01:00→18:06)
[2020-01-06] MEDS: ACETAMINOPHEN 500 MG TAB PO PRN (03:32)
[2020-01-06] MEDS: INSULIN -REGULAR HUMAN 50 UNIT/0.5 ML ML SQ SCH ×4 (07:30→21:14)
[2020-01-06] MEDS: METOCLOPRAMIDE 10 MG/2mL INJ IV SCH ×2 (07:30→11:30)
[2020-01-06] MEDS: METOPROLOL TAR 25 MG TAB PO SCH ×2 (09:00→21:13)
[2020-01-06] MEDS: cloNIDine HCL 0.1 MG TAB PO SCH ×2 (09:00→21:00)
[2020-01-06] MEDS: LOSARTAN POTASSIUM 50 MG TABLET PO SCH (09:00)
[2020-01-06] MEDS: HYDRALAZINE HCL 25 MG TABLET PO SCH ×3 (09:00→21:12)
[2020-01-06] MEDS: PANTOPRAZOLE 40MG TABLET PO SCH (09:00)
[2020-01-06] MEDS: AMLODIPINE 10 MG TAB PO SCH (09:00)
[2020-01-06] MEDS: PIPER/TAZO/NS 2.25gm 2.25 GM/50 ML BAG IVPB SCH (09:19)
[2020-01-06] MEDS: GABAPENTIN 400 MG CAP PO SCH ×3 (09:20→21:13)
--- NOTE | 2020-01-06 13:38 | RAD REPORT ---
EXAM DESCRIPTION: US - UPPER EXTREMITY VENOUS UNILATE - 01/06/2020 1:31 pm CLINICAL HISTORY: /left arm swelling. COMPARISON: None. FINDINGS: Left internal jugular vein, left subclavian vein, left axillary vein, left brachial vein, left cephalic, left basilic, left ulnar and left radial veins demonstrate phasic signal. The veins ar e compressible. Doppler demonstrates good flow. . IMPRESSION: No sonographic evidence of thrombus involving the left upper extremity veins.
[2020-01-06] MEDS: METHYLPREDNISOLONE 125 MG INJ IV SCH ×2 (14:03→17:16)
[2020-01-06 15:14] LABS: Basophils % 0.3 % (0-1.3); Hematocrit 25.5 % (39.6-49.0); Lymphocytes % 5.9 % (15.3-44.8); MPV 8.8 fL (7.6-11.3); RBC Red Blood Cell Count 2.73 M/uL (4.33-5.43)
[2020-01-06 15:30] LABS: Potassium 5.6 mmol/L (3.5-5.1)
--- NOTE | 2020-01-06 15:51 | PN ---
Date of Progress Note: 01/06/2020 Subjective: The patient was admitted with uremia. The patient is still feeling weak. The patient h ad leukocytosis, started on antibiotic. The patient is complaining of left arm swelling. Objective: Vital Signs: When I saw the patient, blood pressure of 141/67, pulse of 87, afebrile. Chest: Faint rales. Heart: S1, S2. Systolic murmur. Abdomen: Soft, nontender. Extremities: Swelling on the left arm and scrotum. Neurologic: Alert and oriented x3. Nonfocal. Laboratory Data: WBC 16, H and H 8.1/24.9, platelets 121. Sodium 139, potassium 5.7, bicarb 23, BUN 63, creatinine 7.4, calcium 7.4, magnesium 2.2. Current Medications: Include: 1.Zosyn. 2.Vancomycin. 3.Epogen. 4.Amlodipine 10 mg. 5.Atorvastatin. 6.Clonidine 0.1 b.i.d. 7.Hydralazine 100 t.i.d. 8.Losartan 100 daily. 9.Metoprolol. 10.Gabapentin. 11.Risperdal. 12.Metoclopramide. Assessment And Plan: 1.End-stage renal disease, stable. We will continue to challenge the patient to establish better vo lume control. I am going to go ahead and arrange for the patient to have dialysis tomorrow and we wi ll follow up. 2.Hypertension. We will utilize blood pressure for more ultrafiltration. 3.Leukocytosis. Culture was negative. I am going to go ahead and discontinue Zosyn to downgrade an tibiotic and we will follow up. 4.Anemia of chronic kidney disease. Continue SCARLETT. 5.Left arm swelling. We will send for a deep vein thrombosis study. We will challenge the patient to establish better volume control. 6.Deconditioning. Continue PT, OT. MALINDA/MODL Voice ID: [id number] Report ID: [id number]
[2020-01-06] MEDS: HYDROCODONE/APAP 10/325 TAB PO PRN ×2 (17:37→23:00)
[2020-01-06] MEDS: RISPERIDONE 1 MG TABLET PO SCH (21:00)
[2020-01-06] MEDS: ATORVASTATIN 20 MG TAB PO SCH (21:13)
[2020-01-07 03:47] LABS: RBC Red Blood Cell Count 2.85 M/uL (4.33-5.43)
[2020-01-07] MEDS: HYDROCODONE/APAP 10/325 TAB PO PRN ×2 (05:17→12:50)
[2020-01-07 06:20] LABS: Albumin 2.3 g/dL (3.4-5.0); Ferritin 291.5 ng/mL (26-388); Folic Acid, (Folate) 7.7 ng/mL (3.1-17.5); Magnesium 2.3 mg/dL (1.8-2.4); Phosphorus 5.9 mg/dL (2.5-4.9)
[2020-01-07 06:28] LABS: Potassium 6.6 mmol/L (3.5-5.1)
[2020-01-07] MEDS: GABAPENTIN 400 MG CAP PO SCH ×2 (07:32→13:25)
[2020-01-07] MEDS: PANTOPRAZOLE 40MG TABLET PO SCH (07:32)
[2020-01-07] MEDS: HYDRALAZINE HCL 25 MG TABLET PO SCH ×2 (07:32→13:26)
[2020-01-07] MEDS: cloNIDine HCL 0.1 MG TAB PO SCH (07:32)
[2020-01-07] MEDS: LOSARTAN POTASSIUM 50 MG TABLET PO SCH (07:33)
[2020-01-07] MEDS: AMLODIPINE 10 MG TAB PO SCH (07:33)
[2020-01-07] MEDS: METOPROLOL TAR 25 MG TAB PO SCH (07:33)
[2020-01-07] MEDS: INSULIN -REGULAR HUMAN 50 UNIT/0.5 ML ML SQ SCH ×3 (07:41→12:47)
[2020-01-07 09:37] VITALS: O2SAT 95
[2020-01-07] MEDS: EPOETIN ALFA 10,000 UNIT/ML VIAL IV SCH (10:20)
[2020-01-07 12:22] LABS: C.diff Antigen/Toxin Ag neg : Tox neg (NEG : NEG)
[2020-01-07 12:56] VITALS: BP 150/71; TEMP 96.7
--- NOTE | 2020-01-07 13:26 | P.PN ---
Subjective Date of Service: 01/05/20 Subjective: No new changes, No C/O voiced, Improving Review of Systems 10-point ROS is otherwise unremarkable Physical Examination - Vital Signs Temperature: 96.7 F Blood Pressure: 150/71 Pulse: 80 Respirations: 20 Pulse Ox (%): 97 - Physical Exam General: Alert, In no apparent distress, Oriented x3 Respiratory: Clear to auscultation bilaterally, Normal air movement Cardiovascular: Regular rate/rhythm, Normal S1 S2, No murmurs Gastrointestinal: Normal bowel sounds, Soft and benign, Non-distended, No tenderness Musculoskeletal: No clubbing, No swelling, No tenderness Neurological: Sensation intact, Cranial nerves 3-12 intact - Studies Medications List Reviewed: Yes Assessment & Plan - Problems (Diagnosis) (1) Diabetes Onset Date: 07/15/17 Current Visit: No Status: Acute Qualifiers: Diabetes mellitus type: type 2 Diabetes mellitus retirement insulin use: with buttermaker continuous churn use Diabetes mellitus complication status: without complication Qualified Code(s): E11.9 - Type 2 diabetes mellitus without complications; Z79.4 - skilled nursing (current) use of insulin (2) Gastric ulcer Onset Date: 10/09/17 Current Visit: No Status: Acute Qualifiers: Gastric ulcer chronicity: chronic Gastric ulcer complication status: without hemorrhage or perforation Qualified Code(s): K25.7 - Chronic gastric ulcer without hemorrhage or perforation (3) Generalized weakness Current Visit: No Status: Acute (4) HTN (hypertension) Onset Date: 07/15/17 Current Visit: No Status: Acute Qualifiers: Hypertension type: essential hypertension (5) Hepatitis C Onset Date: 10/09/17 Current Visit: No Status: Acute Qualifiers: Viral hepatitis chronicity: chronic Hepatic coma status: without hepatic coma Qualified Code(s): B18.2 - Chronic viral hepatitis C (6) Severe anemia Onset Date: 10/10/16 Current Visit: No Status: Acute (7) Cocaine abuse Onset Date: 04/08/17 Current Visit: No Status: Chronic (8) ESRD (end stage renal disease) on dialysis Onset Date: 03/13/18 Current Visit: No Status: Chronic (9) Diarrhea Current Visit: Yes Status: Acute - Plan PLAN: 1. MONITOR H&H CLOSELY 2. HEMODIALYSIS PER NEPHROLOGY 3. MONITOR LEUKOCYTOSIS CLOSELY 4. STRICT BLOOD SUGAR AND BLOOD PRESSURE CONTROL 5. PHYSICAL THERAPY EVALUATION 6. Will need to stop Reglan; currently on Imodium now 7. LUNG MASS NEEDS TO BE FOLLOWED UP WITH REPEAT IMAGING IN 6-12 WEEKS 8. GI AND DVT PROPHYLAXIS Discharge Plan: Home Plan to discharge in: Greater than 2 days - Advance Directives Does patient have a Living Will: No Does patient have a Durable POA for Healthcare: No - Code Status/Comfort Care Code Status Assessed: Yes Code Status: Full Code Critical Care: No Time Spent Managing PTS Care (In Minutes): 30
--- NOTE | 2020-01-07 13:29 | P.PN ---
Subjective Date of Service: 01/06/20 Patient continues do well with no new complaints. He is not really reports pain well with physical therapy. Since he does not want really participate, then plan will be to discharge him home in the morning. Review of Systems 10-point ROS is otherwise unremarkable Physical Examination - Vital Signs Temperature: 96.7 F Blood Pressure: 150/71 Pulse: 80 Respirations: 20 Pulse Ox (%): 97 - Physical Exam General: Alert, In no apparent distress, Oriented x3 Respiratory: Clear to auscultation bilaterally, Normal air movement Cardiovascular: Regular rate/rhythm, Normal S1 S2, Systolic murmur Gastrointestinal: Normal bowel sounds, Soft and benign, Non-distended, No tenderness Musculoskeletal: No clubbing, No swelling Neurological: Sensation intact, Cranial nerves 3-12 intact - Studies Medications List Reviewed: Yes Assessment & Plan - Problems (Diagnosis) (1) Diabetes Onset Date: 07/15/17 Current Visit: No Status: Acute Qualifiers: Diabetes mellitus type: type 2 Diabetes mellitus senior care insulin use: with marine oil terminal superintendent use Diabetes mellitus complication status: without complication Qualified Code(s): E11.9 - Type 2 diabetes mellitus without complications; Z79.4 - exterminator helper (current) use of insulin (2) Gastric ulcer Onset Date: 10/09/17 Current Visit: No Status: Acute Qualifiers: Gastric ulcer chronicity: chronic Gastric ulcer complication status: without hemorrhage or perforation Qualified Code(s): K25.7 - Chronic gastric ulcer without hemorrhage or perforation (3) Generalized weakness Current Visit: No Status: Acute (4) HTN (hypertension) Onset Date: 07/15/17 Current Visit: No Status: Acute Qualifiers: Hypertension type: essential hypertension (5) Hepatitis C Onset Date: 10/09/17 Current Visit: No Status: Acute Qualifiers: Viral hepatitis chronicity: chronic Hepatic coma status: without hepatic coma Qualified Code(s): B18.2 - Chronic viral hepatitis C (6) Severe anemia Onset Date: 10/10/16 Current Visit: No Status: Acute (7) Cocaine abuse Onset Date: 04/08/17 Current Visit: No Status: Chronic (8) ESRD (end stage renal disease) on dialysis Onset Date: 03/13/18 Current Visit: No Status: Chronic (9) Diarrhea Current Visit: Yes Status: Acute - Plan PLAN: CONTINUE WITH PLAN OF CARE MENTIONED BELOW 1. HEMOGLOBIN DECREASE. WILL TRANSFUSE DURING HEMODIALYSIS TOMORROW 2. HEMODIALYSIS PER NEPHROLOGY TOMORROW 3. MONITOR LEUKOCYTOSIS CLOSELY 4. STRICT BLOOD SUGAR AND BLOOD PRESSURE CONTROL 5. PHYSICAL THERAPY EVALUATION; PATIENT HAS NOT BEEN PARTICIPATING MUCH HE NEEDS TO BE. PLAN WILL BE TO DISCHARGE AND WITH OUTPATIENT FOLLOW-UP 6. STOPPED Reglan; currently on Imodium now 7. LUNG MASS NEEDS TO BE FOLLOWED UP WITH REPEAT IMAGING IN 6-12 WEEKS 8. GI AND DVT PROPHYLAXIS Discharge Plan: Home Plan to discharge in: 24 Hours - Advance Directives Does patient have a Living Will: No Does patient have a Durable POA for Healthcare: No - Code Status/Comfort Care Code Status: Full Code Critical Care: No Time Spent Managing PTS Care (In Minutes): 30
[2020-01-07 14:04] LABS: Potassium 4.1 mmol/L (3.5-5.1)
[2020-01-07 14:23] LABS: Absolute Lymphocytes (CBC) 0.8 K/uL (0.7-4.9); Basophils % 0.3 % (0-1.3); Hematocrit 27.1 % (39.6-49.0); Lymphocytes % 3.6 % (15.3-44.8); MPV 9.6 fL (7.6-11.3); RBC Red Blood Cell Count 2.92 M/uL (4.33-5.43)
--- NOTE | 2020-01-07 16:13 | PN ---
Date of Progress Note: 01/07/2020 Subjective: The patient was admitted with uremic symptoms secondary to missing dialysis. The patien t is doing better. Started participating in physical therapies. Objective: Vital Signs: Blood pressure 195/87, pulse of 70, afebrile. Chest: Faint rales, bilateral base. Heart: S1, S2 regular. Abdomen: Soft, nontender. Extremities: +1 edema, more prominent on the upper extremity. Neurologic: No focal. Laboratory Data: WBC 16.4, H and H 7.9/25.5, platelets 96. Sodium 137, potassium 6.6, bicarb 23, BU N 62, creatinine 6.9, calcium 7.5, phos 5.9, iron saturation of 31. Assessment And Plan: 1.End-stage renal disease, over volume. We will challenge the patient and we will try to do another session of dialysis tomorrow to establish better volume control for the patient. 2.We will do another sequential tomorrow. 3.Hypertension, controlled, not optimal. We will utilize blood pressure for more ultrafiltration an d we will follow up. 4.Anasarca secondary to poor compliance. We will challenge another session of dialysis tomorrow. 5.Anemia of chronic kidney disease. Continue/multiple myeloma. I am going to continue SCARLETT. The sander logan is going to receive a transfusion today. Deep vein thrombosis was ruled out. 6.Deconditioning. Continue PT, OT. 7.Hyperkalemia. The patient is going to be dialyzed on low potassium bath. MALINDA/ZULEIMA Voice ID: [id number] Report ID: [id number]
--- NOTE | 2020-01-07 16:40 | PN ---
Date of Progress Note: 01/07/2020 This is a dialysis note. Subjective: Patient is seen on dialysis. Patient still has shortness of breath. Still has anasarca . We are goaling to 3400. Physical Examination: Vital Signs: Blood pressure 143/67, pulse of 88. Chest: Crackles bilateral. Heart: S1, S2. Regular. Systolic murmur. Abdomen: Soft, nontender. Extremities: Swelling on the upper extremity and lower +1. Neurological: Oriented x3. Assessment And Plan: 1.End-stage renal disease, over volume. 2.Hyperkalemia. I am going to up the goal to 3600. Patient is going to be dialyzed on low-potassiu m bath. 3.Hyperkalemia. We will switch and we will do another session of dialysis tomorrow. 4.Anemia. Continue SCARLETT. We will send for fecal occult. 5.Deconditioning. Continue PT, OT. MALINDA/AUDIEL Voice ID: [id number] Report ID: [id number]
[2020-01-07 17:49] LABS: Blood Morphology Comment NOT SEEN (NOT SEEN); Platelet Estimate DECR
--- NOTE | 2020-01-08 09:03 | P.DS ---
Discharge Date: 01/07/20 Disposition: ROUTINE DISCHARGE Discharge Condition: GOOD Reason for Admission: Pulmonary edema/NSTEMI/anemia - Problems (1) Diabetes Onset Date: 07/15/17 Status: Acute Qualifiers: Diabetes mellitus type: type 2 Diabetes mellitus adjunct faculty for medical terminology insulin use: with shelter use Diabetes mellitus complication status: without complication Qualified Code(s): E11.9 - Type 2 diabetes mellitus without complications; Z79.4 - group home (current) use of insulin (2) Gastric ulcer Onset Date: 10/09/17 Status: Acute Qualifiers: Gastric ulcer chronicity: chronic Gastric ulcer complication status: without hemorrhage or perforation Qualified Code(s): K25.7 - Chronic gastric ulcer without hemorrhage or perforation (3) Generalized weakness Status: Acute (4) HTN (hypertension) Onset Date: 07/15/17 Status: Acute Qualifiers: Hypertension type: essential hypertension (5) Hepatitis C Onset Date: 10/09/17 Status: Acute Qualifiers: Viral hepatitis chronicity: chronic Hepatic coma status: without hepatic coma Qualified Code(s): B18.2 - Chronic viral hepatitis C (6) Severe anemia Onset Date: 10/10/16 Status: Acute (7) Cocaine abuse Onset Date: 04/08/17 Status: Chronic (8) ESRD (end stage renal disease) on dialysis Onset Date: 03/13/18 Status: Chronic (9) Diarrhea Status: Acute Brief History of Present Illness: Patient is a 64-year-old male with a past medical history of end-stage renal disease on dialysis T,T,S, chronic diastolic heart failure, type 2 diabetes mellitus, hyperlipidemia, hypertension and CVA presents to the emergency room with complaints of increasing difficulty of breathing and chest pain. Patient states that he missed dialysis for 2 weeks. Patient was admitted to the hospital last month for missing dialysis for 2 weeks. Patient states that "he just got tired of going". In the emergency room patient is complaining of chest pain in the center of the chest extending into the abdomen. Patient had an echocardiogram on 10/26/2019 which showed an EF of 55-60% and diastolic dysfunction. He also underwent cardiac catheterization which showed a 30% stenosis in the distal LAD. Rest of arteries were unremarkable. Patient's lab work shows a creatinine of 12.1, potassium of 6.4, elevated troponin of 0.12, a BNP of 26,504, white cell count of 19.5, bands of 4 and a D-dimer of 4110. His oxygen saturations on arrival to the ER where 100% on room air, blood pressure of 182/94, pulse of 80 and a temperature of 97.7. Also complaining of cough. On physical exam patient is stable. Currently on 3 L nasal cannula at 100% O2 saturations. He is calm and in no distress. Alert and oriented x4. Asking for pain medication and for something to eat. Patient states that his sheet combining operator is Dr. Cruz. Patient will be admitted and further evaluated. Hospital Course: Patient has done well during hospital stay. He did have some diarrhea which was most likely related to his Reglan. We went ahead and gave him Imodium and did stool studies. Patient was transfuse 3 units of packed red blood cells. Patient was given pain control. Patient ambulated with therapy. Clinically, patient is doing better and is stable for discharge home. Vital Signs/Physical Exam: Temp Pulse Resp BP Pulse Ox 96.7 F L 80 20 150/71 H 97 01/07/20 13:29 01/07/20 13:29 01/07/20 13:50 01/07/20 13:29 01/07/20 13:50 General: Alert, In no apparent distress, Oriented x3 Laboratory Data at Discharge: WBC 21.8 K/uL (4.3-10.9) H* D 01/07/20 13:38 Hgb 8.6 g/dL (13.6-17.9) L 01/07/20 13:38 Hct 27.1 % (39.6-49.0) L 01/07/20 13:38 Plt Count 81 K/uL (152-406) L 01/07/20 13:38 PT 13.2 SECONDS (9.5-12.5) H 12/28/19 02:30 INR 1.12 12/28/19 02:30 APTT 35.6 SECONDS (24.3-36.9) 12/28/19 02:30 Sodium 141 mmol/L (136-145) 01/07/20 13:38 Potassium 4.1 mmol/L (3.5-5.1) 01/07/20 13:38 BUN 32 mg/dL (7-18) H D 01/07/20 13:38 Creatinine 4.26 mg/dL (0.55-1.3) H D 01/07/20 13:38 Glucose 249 mg/dL (74-106) H 01/07/20 13:38 Phosphorus 5.9 mg/dL (2.5-4.9) H 01/07/20 03:34 Magnesium 2.3 mg/dL (1.8-2.4) 01/07/20 03:34 Total Bilirubin 0.2 mg/dL (0.2-1.0) 12/28/19 02:30 AST 36 U/L (15-37) 12/28/19 02:30 ALT 23 U/L (12-78) 12/28/19 02:30 Alkaline Phosphatase 84 U/L (45-117) 12/28/19 02:30 Troponin I 0.15 ng/mL (0.0-0.045) H 12/29/19 03:00 Lipase 277 U/L (73-393) 12/28/19 02:30 Home Medications: Gabapentin 300 mg PO TID 10/26/19 Pantoprazole [Protonix Tab*] 40 mg PO DAILY 10/26/19 Risperidone [Risperdal] 1 mg PO BEDTIME 10/26/19 Amlodipine [Norvasc*] 10 mg PO DAILY #30 tab 10/28/19 Atorvastatin Calcium [Lipitor*] 20 mg PO BEDTIME #30 tab 10/28/19 Hydralazine HCl [Apresoline] 50 mg PO TID #90 10/28/19 Losartan Potassium [Cozaar*] 50 mg PO DAILY #30 tablet 01/07/20 Metoprolol Tartrate [Lopressor*] 50 mg PO BID #60 tab 01/07/20 cloNIDine HCL [Clonidine HCl] 0.2 mg PO BID #60 tablet 01/07/20 metroNIDAZOLE [Flagyl] 250 mg PO Q8H #21 tablet 01/07/20 New Medications: cloNIDine HCL [Clonidine HCl] 0.2 mg PO BID #60 tablet Losartan Potassium [Cozaar*] 50 mg PO DAILY #30 tablet metroNIDAZOLE [Flagyl] 250 mg PO Q8H #21 tablet Metoprolol Tartrate [Lopressor*] 50 mg PO BID #60 tab Patient Discharge Instructions: OK TO DC IV AND DC HOME. FOLLOW-UP WITH PRIMARY CARE PROVIDER IN 1-2 WEEKS. FOLLOW-UP WITH NEPHROLOGY IN 1-2 WEEKS. FOLLOW-UP WITH GI IN 2-4 WEEKS. RETURN TO THE ER IF symptoms worsen. CALL or TEXT DR. POMPA AT [phone] IF ANY QUESTIONS REGARDING HOSPITAL STAY. PLEASE CALL THE FLOOR AT [phone] IF ANY MEDICATION OR NURSING QUESTIONS. Diet: Renal Activity: Fall precautions Followup: Irvin Cruz MD [ACTIVE - CAN ADMIT] - Time spent managing pt's care (in minutes): 25
== END 2020-01-07 15:27 | disposition home or self-care (01) | DRG 698 ==
LOC: ER 01:41 → ERHOLD 05:10 → 2ND 05:39
PROVIDERS: ADMIT Family Medicine; ATTEND Hospitalist
PROC: 30233N1 Transfusion of Nonautologous Red Blood Cells into Peripheral Vein, Percutaneous Approach (ICD-10-PCS; 2019-12-28)
PROC: 5A1D70Z Performance of Urinary Filtration, Intermittent, Less than 6 Hours Per Day (ICD-10-PCS; principal; 2020-01-05)
PROC: 30233N1 Transfusion of Nonautologous Red Blood Cells into Peripheral Vein, Percutaneous Approach (ICD-10-PCS; 2020-01-07)
PROC: 5A1D70Z Performance of Urinary Filtration, Intermittent, Less than 6 Hours Per Day (ICD-10-PCS; 2020-01-07)
DX: E11.22 Type 2 diabetes mellitus with diabetic chronic kidney disease (principal); I50.33 Acute on chronic diastolic (congestive) heart failure; I13.2 Hypertensive heart and chronic kidney disease with heart failure and with stage 5 chronic kidney disease, or end stage renal disease; N18.6 End stage renal disease; N25.81 Secondary hyperparathyroidism of renal origin; E87.5 Hyperkalemia; E78.5 Hyperlipidemia, unspecified; D63.1 Anemia in chronic kidney disease; N25.0 Renal osteodystrophy; R39.2 Extrarenal uremia; E83.9 Disorder of mineral metabolism, unspecified; B18.2 Chronic viral hepatitis C; Z99.2 Dependence on renal dialysis; Z91.15 Patient's noncompliance with renal dialysis; Z11.59 Encounter for screening for other viral diseases
CPT/HCPCS: 36415; 36430; 71045; 74177; 80048; 80069; 80076; 80202; 81003; 81015; 82550; 82553; 82607; 82728; 82746; 82947; 83540; 83690; 83735; 83880; 84466; 84484; 85014; 85018; 85025; 85044; 85379; 85610; 85730; 86704; 86706; 86803; 86850; 86900; 86901; 87040; 87045; 87046; 87070; 87086; 87088; 87177; 87205; 87209; 87324; 87340; 87449; 87522; 89055; 90935; 93005; 93971; 94760; 96374; 96375; 97110; 97116; 97161; 97530; 99285; J1644; J2405; J2765; J2930; J3370; J7050; P9016; Q5105; Q9967; U0003

== ENCOUNTER 2020-01-11 01:45 | Inpatient (IN) | payer OTHER ==
--- OUTSIDE RECORDS SUMMARY | 2020-01-11 01:48 | XMS REPORT | Continuity of Care Document ---
:1955 Author Organization [facility] t Address [address] [place] [address] Care Team Providers Name Role Phone Unavailable [...] edema [facility] Chronic Chronic Problem Active [facility] kidney kidney [facility] disease, disease, Memori a stage 3 stage 3 l (moderate) (moderate) [facility] Other Other Diagnosis Active [facility] closed closed [facility] - fracture fracture Memori a of right of right l patella patella Outpati with with ent routine routine Clinics healing, healing, subsequent subsequent encounter encounter Pain, Pain, Diagnosis Active [facility] joint, joint, [facility] - knee, knee, Memoria right right l [facility]ics Allergies, Adverse Reactions, Alerts Allergy Allergy Status Severity Reaction(s) Onset Inactive Treating Comm ents Source Name Type Date Date Clinician Corticos Adverse Active anaphylaxis [facility] teroids Reaction [facility] Medications Ordered Filled Start Stop Current Ordering Indication Dosage Frequency Signature Comments Components Source Medication Medication Date Date Medication? Clinician (SIG) Name Name Coreg Coreg Yes Lalo [address] [facility] [place] [facility] Hydrocodone Hydrocodone Yes Lalo (Schedule [facility] -Acetaminop -Acetaminop [place] II Drug) Cris - chantelle lockhart TAKE 1 [facility] Clinics NEEDED Pantoprazol Pantoprazol Yes Lalo TAKE [address] [facility] e Sodium e Sodium [place] TABLET BY Lori kes - MOUTH ONCE Memoria A DAY [facility] Coreg Coreg Yes Lalo [address] [facility] [place] [facility] HydrALAZINE HydrALAZINE Yes Lalo [address] [facility] HCl HCl [place] with food [facility] Adjustable Adjustable Yes Lalo USE WITH [facility] Lancing Lancing [place] LANCETS TO Contre[facility] es - Device Device TEST BLOOD Memor ia GLUCOSE [facility] Comfort EZ Comfort EZ Yes Lalo USE TO [facility] Insulin Insulin [place] INJECT [facility] - Syringe Syringe INSULIN Memori a TWICE l DAILY [facility] Amlodipine Amlodipine Yes Lalo TAKE [address] [facility] Besylate Besylate [place] TABLET BY Lori kes - MOUTH ONCE Memoria A DAY [facility] Easy Touch Easy Touch Yes Lalo USE TO [facility] Alcohol Alcohol [place] TEST BLOOD [facility] es - Prep Medium Prep Medium GLUCOSE Memoria TWICE l DAILY [facility] Risperidone Risperidone Yes Lalo TAKE [address] [facility] [place] TABLET BY [facility]TH AT [facility] BEDTIME [facility] Bumetanide Bumetanide Yes Lalo TAKE 1 [...] Test [place] TEST BLOOD [facility] Clinics Senokot S Senokot S Yes Lalo [address] [facility] [place] in the [facility] - evening as Memoria needed l Outpati ent Clinics [facility] Yes Lalo TAKE 2 [facility] [...] [place] TABLETS BY [facility] MOUTH AT [facility] BEDTIME l [facility] Furosemide Furosemide Yes Lalo TAKE [address] [facility] [place] TABLET [facility] - EVERY DAY [facility] ent Clinics Eliquis Eliquis Yes Lalo TAKE [address] [facility] [place] TABLET BY [facility] - MOUTH Memoria TWICE A l DAY [facility] Levemir Levemir Yes Lalo [address] [place] [facility] Atorvastati Atorvastati Yes Lalo TAKE [address] [facility] n Calcium n Calcium [place] TABLET [facility] es - [facility] Protonix Protonix Yes Lalo [address] [facility] [place] [facility] Amlodipine Amlodipine Yes Lalo TAKE [address] [facility] Besylate Besylate [place] TABLET BY Lori kes - MOUTH ONCE Memoria A DAY [facility] ent Clinics Spironolact Spironolact Yes Lalo [address] [facility] one one [place] [facility] Aspirin Aspirin Yes Lalo [address] [place] [facility] Metoclopram Metoclopram Yes Lalo TAKE [address] [facility] sirena HCl sirena HCl [place] TABLET BY Luke s - MOUTH Memoria EVERY DAY l [facility] Zolpidem Zolpidem Yes Lalo (Schedule [facility] Tartrate Tartrate [place] IV Drug) Contreras es - TAKE 1 Memoria TABLET BY l MOUTH AT [facility] BEDTIME ent Clinics Neurontin Neurontin Yes Lalo TAKE [address] [facility] [place] CAPSULE BY [facility] - MOUTH Memoria THREE l TIMES A [facility] DAY ent Clinics Procedures This patient has no known procedures. Encounters Start End Encounter Admission Attending Care Care Encounter Source Date/Time Date/Time Type Type Clinicians Facility Department ID 2019-07-19 2019-07-19 Outpatient Becky Cox [id number] [facility] 22:02:00 22:02[facility]00 [facility] 2019-07-16 2019-07-16 Outpatient Becky Penat [id number] [facility] 08:30:00 08:30:00 t [facility] Results This patient has no known results.
[2020-01-11 02:33] LABS: Protime INR 1.1
[2020-01-11 02:34] LABS: Absolute Lymphocytes (CBC) 0.9 K/uL (0.7-4.9); Basophils % 0.3 % (0-1.3); Hematocrit 24.8 % (39.6-49.0); RBC Red Blood Cell Count 2.63 M/uL (4.33-5.43)
[2020-01-11 03:03] LABS: Lymphocytes % 7.1 % (15.3-44.8); MPV 9.5 fL (7.6-11.3)
[2020-01-11 03:07] LABS: ALT/SGPT 33 U/L (12-78); AST/SGOT 44 U/L (15-37); Albumin 2.7 g/dL (3.4-5.0); Alkaline Phosphatase 108 U/L (45-117); BUN Blood Urea Nitrogen 60 mg/dL (7-18); Bicarbonate 24 mmol/L (21-32); Bilirubin Direct < 0.1 mg/dL (0-0.2); Bilirubin Total 0.3 mg/dL (0.2-1.0); Glucose Level 145 mg/dL (74-106); Magnesium 2.1 mg/dL (1.8-2.4); NT PRO-BNP 13568 pg/mL (<125); Potassium 5.1 mmol/L (3.5-5.1); Protein, Total 6.6 g/dL (6.4-8.2); Sodium Level 143 mmol/L (136-145); Troponin (Emerg Dept Use Only) 0.03 ng/mL (0.0-0.045)
--- NOTE | 2020-01-11 03:31 | EDPHYS ---
Physician Documentation [facility] Name: Billy Trejo Age: 64 yrs Sex: Male : 1955 Arrival Date: 01/11/2020 Time: 01:46 Bed 27 Private MD: ED Physician Alexys Farfan HPI: 01/10 02:38 This 64 yrs old Black Male presents to ER via EMS with complaints of Breathing mh7 Difficulty. 02:38 The patient has shortness of breath at rest, with light activity. Onset: The mh7 symptoms/episode began/occurred 2 day(s) ago. Duration: The symptoms are continuous, and are steadily getting worse. The patient's shortness of breath is aggravated by exertion, light activity, is alleviated by nothing. Associated signs and symptoms: Pertinent positives: swelling all over body, Pertinent negatives: chest pain, non-productive cough, productive cough, diaphoresis, dizziness, fever, hemoptysis, loss of consciousness, nausea, numbness in extremities, visual changes, vomiting. Severity of symptoms: At their worst the symptoms were moderate today, in the emergency department the symptoms are unchanged. The patient has experienced similar episodes in the past, multiple times. The patient has been recently been admitted at [facility], was discharged last week. Patient with history of ESRD missed dialysis 2 days ago complains of SOB and swelling all over his body. Denies any fever, chest pain, nausea, vomiting, abdominal pain, numbness/tingling, or weakness.. Historical: - Allergies: 01:58 Corticosteroids (Glucocorticoids); mt2 - Home Meds: 01:58 amlodipine oral [Active]; carvedilol Oral [Active]; gabapentin Oral [Active]; mt2 - PMHx: 01:58 "spot on lung"; Arthritis; Anemia; CHF; CVA; Diabetes - IDDM; Dialysis; M,W,F; GERD; GI mt2 Bleed; High Cholesterol; Hypertension; Pneumonia; - Immunization history:: Adult Immunizations up to date. - Social history:: Smoking status: Patient reports the use of cigarette tobacco products, smokes one-half pack cigarettes per day. ROS: 02:38 Constitutional: Negative for fever, chills, and weight loss, Eyes: Negative for injury, mh7 pain, redness, and discharge, ENT: Negative for injury, pain, and discharge, Neck: Negative for injury, pain, and swelling, Cardiovascular: Negative for chest pain, palpitations, and edema, Abdomen/GI: Negative for abdominal pain, nausea, vomiting, diarrhea, and constipation, Back: Negative for injury and pain, MS/Extremity: Negative for injury and deformity, Skin: Negative for injury, rash, and discoloration, Neuro: Negative for headache, weakness, numbness, tingling, and seizure, Psych: Negative for depression, anxiety, suicide ideation, homicidal ideation, and hallucinations, Allergy/Immunology: Negative for hives, rash, and allergies, Endocrine: Negative for neck swelling, polydipsia, polyuria, polyphagia, and marked weight changes, Hematologic/Lymphatic: Negative for swollen nodes, abnormal bleeding, and unusual bruising. Exam: 02:38 Constitutional: This is a well developed, well nourished patient who is awake, alert, mh7 and in no acute distress. Head/Face: Normocephalic, atraumatic. Eyes: Pupils equal round and reactive to light, extra-ocular motions intact. Lids and lashes normal. Conjunctiva and sclera are non-icteric and not injected. Cornea within normal limits. Periorbital areas with no swelling, redness, or edema. Neck: Trachea midline, no thyromegaly or masses palpated, and no cervical lymphadenopathy. Supple, full range of motion without nuchal rigidity, or vertebral point tenderness. No Meningismus. Chest/axilla: Normal chest wall appearance and motion. Nontender with no deformity. No lesions are appreciated. Cardiovascular: Regular rate and rhythm with a normal S1 and S2. No gallops, murmurs, or rubs. Normal PMI, no JVD. No pulse deficits. 02:38 Abdomen/GI: Soft, non-tender, with normal bowel sounds. No distension or tympany. No guarding or rebound. No evidence of tenderness throughout. Back: No spinal tenderness. No costovertebral tenderness. Full range of motion. 02:38 Skin: Warm, dry with normal turgor. Normal color with no rashes, no lesions, and no evidence of cellulitis. Neuro: Awake and alert, GCS 15, oriented to person, place, time, and situation. Cranial nerves II-XII grossly intact. Motor strength 5/5 in all extremities. Sensory grossly intact. Cerebellar exam normal. Normal gait. Psych: Awake, alert, with orientation to person, place and time. Behavior, mood, and affect are within normal limits. 02:38 Respiratory: the patient does not display signs of respiratory distress, Respirations: normal, Breath sounds: rhonchi, that are mild, are scattered, Respiratory rate: 19 02:38 Musculoskeletal/extremity: Extremities: noted in the right arm, left arm, right leg and left leg: swelling, ROM: intact in all extremities, Circulation is intact in all extremities. Pulses: are normal with no appreciated deficits, Sensation intact. Compartment Syndrome exam of affected extremity: is normal. no pain, no numbness, no tingling, no sensation deficit, no palor, no weak pulses, Joints: All joints appear normal with full range of motion. Vital Signs: 01:55 BP 176 / 81; Pulse 91; Resp 19; Temp 98.3; Pulse Ox 100% on R/A; Pain 10/10; mt2 02:50 BP 165 / 86; Pulse 77; Resp 17; Temp 98.0(O); Pulse Ox 100% ; Weight 83.01 kg; Pain mt2 5/10; 03:19 BP 159 / 81; Pulse 81; Resp 16; Pulse Ox 100% on R/A; Pain 0/10; mt2 04:00 BP 156 / 84; Pulse 81; Resp 16; Pulse Ox 99% ; Pain 10/10; mt2 MDM: 02:03 Patient medically screened. mh7 03:27 Differential diagnosis: Anemia asthma, Bronchitis CHF exacerbation, Chronic Obstructive mh7 Pulmonary Disease Myocardial Infarction pneumonia, pulmonary edema. Data reviewed: vital signs, nurses notes, EMS record, old medical records, lab test result(s), cardiac enzymes, CBC, electrolytes, urinalysis, EKG, radiologic studies, plain films. Data interpreted:. Counseling: I had a detailed discussion with the patient and/or guardian regarding: the historical points, exam findings, and any diagnostic results supporting the discharge/admit diagnosis, the presence of at least one elevated blood pressure reading (>120/80) during this emergency department visit, lab results, radiology results, the need for further work-up and treatment in the hospital. 06:53 Data interpreted: Pulse oximetry: on 3L(s) per nasal canula, is 98 %. Interpretation: mh7 acceptable. Response to treatment: the patient's symptoms have mildly improved after treatment. 01/10 02:02 Order name: Basic Metabolic Panel; Complete Time: 03:23 7 01/10 02:02 Order name: CBC with Diff; Complete Time: 03:13 7 01/10 02:02 Order name: LFT's; Complete Time: 03:23 7 01/10 02:02 Order name: Magnesium; Complete Time: 03:23 7 01/10 02:02 Order name: NT PRO-BNP; Complete Time: 03:23 7 01/10 02:02 Order name: PT-INR; Complete Time: 03:13 7 01/10 02:02 Order name: Troponin (emerg Dept Use Only); Complete Time: 03:23 7 01/10 03:40 Order name: Urinalysis [facility] 01/10 03:40 Order name: Basic Metabolic Panel [facility] 01/10 03:40 Order name: Basic Metabolic Panel [facility] 01/10 03:40 Order name: CBC with Automated Diff [facility] 01/10 03:40 Order name: CBC with Automated Diff [facility] 01/10 03:40 Order name: Magnesium [facility] 01/10 03:40 Order name: Magnesium [facility] 01/10 02:02 Order name: XRAY Chest (1 view) [facility] 01/10 02:02 Order name: EKG; Complete Time: 02:02 [facility] 01/10 02:02 Order name: Cardiac monitoring; Complete Time: 02:16 01/10 02:02 Order name: EKG - Nurse/Tech; Complete Time: 02:49 7 01/10 02:02 Order name: IV Saline Lock; Complete Time: 02:16 [facility] 01/10 02:02 Order name: Labs collected and sent; Complete Time: 02:16 7 01/10 02:02 Order name: O2 Per Protocol; Complete Time: 02:16 7 01/10 03:40 Order name: CONS Physician Consult [facility] 01/10 03:40 Order name: Consistent Carb (ADA) 1800 Nam [facility] 01/10 04:17 Order name: COVID-19 jb4 01/10 08:11 Order name: Glucose, Ancillary Testing [facility] 01/10 08:58 Order name: Urinalysis [facility] 01/10 09:00 Order name: Urine Microscopic Only [facility] 01/10 11:57 Order name: Glucose, Ancillary Testing [facility] 01/10 17:55 Order name: Glucose, Ancillary Testing [facility] 01/10 02:02 Order name: O2 Sat Monitoring; Complete Time: 02:16 [facility] Administered Medications: 04:36 Drug: Lasix 40 mg Route: IVP; Site: right forearm; mt2 04:43 Follow up: Response: No adverse reaction ms2 Disposition: 06:53 Co-signature as Attending Physician, Alexys Farfan MD. [facility] Disposition: 01/11/20 03:30 Hospitalization ordered by Patrick Brown for Inpatient Admission. Preliminary diagnosis are ESRD on Hemodialysis, Anasarca, CHF Exacerbation. - Bed requested for [facility] ER HOLD. - Status is Inpatient Admission. ss - Condition is Stable. - Problem is an acute exacerbation. - Symptoms are unchanged. Signatures: Dispatcher [employer] [facility] Cassie Ortiz RN RN Gloria Villar RN RN ss Holmes, Maurice, MD MD [facility] Renate Londono RN RN ms2 Corrections: (The following items were deleted from the chart) 04:10 03:30 Hospitalization Ordered by Patrick Brown DO for Inpatient Admission. Preliminary diagnosis is ESRD on Hemodialysis; Anasarca; CHF Exacerbation. Bed requested for Telemetry/MedSurg (Inpatient). Status is Inpatient Admission. Condition is Stable. Problem is an acute exacerbation. Symptoms are unchanged. [facility] 20:16 04:10 01/11/2020 03:30 Hospitalization Ordered by Patrick Brown DO for Inpatient ss Admission. Preliminary diagnosis is ESRD on Hemodialysis; Anasarca; CHF Exacerbation. Bed requested for [facility] ER HOLD. Status is Inpatient Admission. Condition is Stable. Problem is an acute exacerbation. Symptoms are unchanged. mw
--- NOTE | 2020-01-11 03:31 | ER ---
Nurse's Notes [facility] Name: Billy Trejo Age: 64 yrs Sex: Male : 1955 Arrival Date: 01/11/2020 Time: 01:46 Bed 27 Private MD: Diagnosis: ESRD on Hemodialysis;Anasarca;CHF Exacerbation Presentation: 01/10 01:55 Chief complaint: EMS states: BIBA FROM WITH C/O SOB EMILIO LE AND UE SWELLING. SWOLLEN mt2 SCROTUM. PT MISSED 1 DAY OF DIALYSIS. WAS RECENTLY DISCHARGE FROM THIS FACILITY WITH SIMILAR S/Y. Coronavirus screen: At this time, the client does not indicate any symptoms associated with coronavirus-19. Ebola Screen: No symptoms or risks identified at this time. Initial Sepsis Screen: Does the patient meet any 2 criteria? No. Patient's initial sepsis screen is negative. Does the patient have a suspected source of infection? No. Patient's initial sepsis screen is negative. Risk Assessment: Do you want to hurt yourself or someone else? Patient reports no desire to harm self or others. Onset of symptoms was January 10, 2020. 01:55 Method Of Arrival: EMS: [facility] mt2 01:55 Acuity: BRAD 3 mt2 Triage Assessment: 02:00 General: Appears uncomfortable, Behavior is cooperative. Respiratory: Onset: The mt2 symptoms/episode began/occurred gradually, the patient has moderate shortness of breath. Respiratory: Reports shortness of breath on exertion. Historical: - Allergies: 01:58 Corticosteroids (Glucocorticoids); mt2 - Home Meds: 01:58 amlodipine oral [Active]; carvedilol Oral [Active]; gabapentin Oral [Active]; mt2 - PMHx: 01:58 "spot on lung"; Arthritis; Anemia; CHF; CVA; Diabetes - IDDM; Dialysis; M,W,F; GERD; GI mt2 Bleed; High Cholesterol; Hypertension; Pneumonia; - Immunization history:: Adult Immunizations up to date. - Social history:: Smoking status: Patient reports the use of cigarette tobacco products, smokes one-half pack cigarettes per day. Screenin:57 Abuse screen: Denies threats or abuse. Nutritional screening: No deficits noted. mt2 Tuberculosis screening: No symptoms or risk factors identified. Fall Risk Gait- Weak (10 pts.). Assessment: 01:59 Pain: Complains of pain in GENERALIZED. Cardiovascular: Rhythm is sinus rhythm. mt2 Respiratory: Airway is patent Respiratory effort is unlabored, Breath sounds are coarse. GI: No deficits noted. : Reports SWOLLEN SCROTUM. 02:00 Neuro: No deficits noted. Cardiovascular: Dialysis shunt: in the right clavicle, VAS mt2 CATH. Cardiovascular: PITTED EDEMA ON EXTREMITIES. EENT: No deficits noted. Derm: No deficits noted. Musculoskeletal: Reports pain in pelvis, right arm, left arm, right leg and left leg. 03:20 Reassessment: Patient and/or family updated on plan of care and expected duration. Pain mt2 level reassessed. Patient is alert, oriented x 3, equal unlabored respirations, skin warm/dry/pink. General: Appears uncomfortable, Behavior is cooperative. Pain: Complains of pain in GENERALIZED. 04:00 Reassessment: Patient and/or family updated on plan of care and expected duration. Pain mt2 level reassessed. Patient is alert, oriented x 3, equal unlabored respirations, skin warm/dry/pink. 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 Vital Signs: 01:55 BP 176 / 81; Pulse 91; Resp 19; Temp 98.3; Pulse Ox 100% on R/A; Pain 10/10; mt2 02:50 BP 165 / 86; Pulse 77; Resp 17; Temp 98.0(O); Pulse Ox 100% ; Weight 83.01 kg; Pain mt2 5/10; 03:19 BP 159 / 81; Pulse 81; Resp 16; Pulse Ox 100% on R/A; Pain 0/10; mt2 04:00 BP 156 / 84; Pulse 81; Resp 16; Pulse Ox 99% ; Pain 10/10; mt2 ED Course: 01:46 Patient arrived in ED. cf2 01:55 Renate Londono RN is Primary Nurse. mt2 01:55 Aelxys Farfan MD is Attending Physician. mh7 01:57 Triage completed. mt2 01:57 Arm band placed on right wrist. mt2 02:00 Patient has correct armband on for positive identification. Placed in gown. Bed in low mt2 position. Call light in reach. Side rails up X 1. machine silk screen printer on. Pulse ox on. NIBP on. 02:00 Initial lab(s) drawn, by me, sent to lab. Inserted saline lock: 20 gauge in right mt2 forearm, using aseptic technique. Blood collected. 02:41 XRAY Chest (1 view) In Process Unspecified. EDSD 03:29 Patrick Brown DO is Hospitalizing Provider. [facility] 04:00 No provider procedures requiring assistance completed. Patient admitted, IV remains in mt2 place. Administered Medications: 04:36 Drug: Lasix 40 mg Route: IVP; Site: right forearm; ca2 04:43 Follow up: Response: No adverse reaction ca2 Outcome: 03:30 Decision to Hospitalize by Provider. [facility] 04:00 Admitted to ER Hold. [facility]. [facility] 04:00 Condition: stable 04:00 Instructed on the need for admit. 20:16 Patient left the ED. Signatures: Dispatcher [employer] [facility] Gloria Villar RN RN Edna Hernandez 2 Alexys Farfan MD MD [facility] Renate Londono RN RN ca2 Corrections: (The following items were deleted from the chart) 03:19 02:50 BP 165 / 86; Pulse 77bpm; Resp 17bpm; Pulse Ox 100%; Temp 98.0F Oral; Pain 5/10; mt2 ca2
--- NOTE | 2020-01-11 03:48 | P.HP ---
Certification for Inpatient Patient admitted to: Observation With expected LOS: <2 Midnights Patient will require the following post-hospital care: None Practitioner: I am a practitioner with admitting privileges, knowledge of patient current condition, hospital course, and medical plan of care. Services: Services provided to patient in accordance with Admission requirements found in Title 42 Section 412.3 of the Code of Federal Regulations <Dread Scott - Last Filed: 01/11/20 03:40> Patient admitted to: Inpatient <Patrick Brown - Last Filed: 01/11/20 17:05> Patient History Date of Service: 01/11/20 History of Present Illness: 63-year-old male with a past medical history of chronic con gestive heart failure, end-stage renal disease on dialysis TTS, chronic anemia, prior CVA, type 2 diabetes mellitus and hypertension presents to the emergency room complaining of shortness of breath with light activity. Patient states he has missed his dialysis session 2 or 3 times again. He was admitted a week ago for missing his dialysis for 2 weeks and last month for missing his dialysis for 2 weeks. Patient is also noticing swelling all over the body. He denies any chest pain, nonproductive cough of productive cough diaphoresis dizziness fever any loss of consciousness, nausea or vomiting. Patient has severe noncompliance with his dialysis and has been admitted multiple times to the hospital for missing dialysis. Patient is alert oriented and in no distress. He is volume overloaded with swelling in his lower extremities extending to his upper thighs. States he feels swollen all over and his legs are tender to touch. In the emergency room lab work shows creatinine levels of 8.40 and hemoglobin of 7.8 with a hematocrit of 24.8. Patient will be placed in observation and further evaluated. He will require dialysis. Home medications list reviewed: No - Past Medical/Surgical History Diabetic: Yes -: HTN -: IDDM (states does not use insulin, has order for Lantus ) -: Arthritis -: high cholesterol -: cva- 2015 -: anemia -: drug abuse -: CHF -: ESRD- on HD MWF -: blood clot in arm -: GERD -: pneumonia -: colonoscopy -: EGD -: tessio right upper chest -: R knee partial patellectomy w/ patellar tendon repair 06/01/19 Psychosocial/ Personal History: Lives at home - Family History Father -: Cancer Notes: NO REAL HISTORY IS KNOWN OTHER THAN WHAT WAS TOLD TO HIM Mother -: Hypertension, Cancer Notes: NO REAL HISTORY KNOWN OTHER THAN WHAT WAS TOLD TO HIM - Social History Smoking Status: Former smoker Alcohol use: No CD- Drugs: No Caffeine use: Yes Place of Residence: Home <Dread Scott - Last Filed: 01/11/20 03:40> Date of Service: 01/11/20 <VasiliystephaniePatrick - Last Filed: 01/11/20 17:05> Allergies Corticosteroids (Glucocorticoids) Allergy (Verified 12/28/19 06:39) Anaphylaxis Home Medications: Amlodipine [Norvasc*] 10 mg PO DAILY #30 tab 10/28/19 Losartan Potassium [Cozaar*] 50 mg PO DAILY #30 tablet 01/07/20 Metoprolol Tartrate [Lopressor*] 50 mg PO BID #60 tab 01/07/20 cloNIDine HCL [Clonidine HCl] 0.2 mg PO BID #60 tablet 01/07/20 metroNIDAZOLE [Flagyl] 250 mg PO Q8H #21 tablet 01/07/20 Cyclobenzaprine [Flexeril] 10 mg PO TID PRN 01/11/20 Gabapentin 1 cap PO TID 01/11/20 diazePAM [Diazepam] 2 mg PO Q8HP PRN 01/11/20 Review of Systems General: As per HPI Eyes: Unremarkable ENT: Unremarkable Respiratory: Shortness of Breath Cardiovascular: Unremarkable Gastrointestinal: Nausea, As per HPI Genitourinary: Unremarkable Musculoskeletal: Pedal edema, Other (Anasarca), As per HPI Integumentary: Unremarkable Neurological: Weakness, As per HPI Lymphatics: Unremarkable <Dread Scott - Last Filed: 01/11/20 03:40> Physical Examination - Vital Signs Temperature: 98.3 F Blood Pressure: 165/86 Pulse: 77 Respirations: 17 Pulse Ox (%): 100 (RA) - Physical Exam General: Alert, In no apparent distress, Oriented x3 HEENT: Atraumatic, Normocephalic, PERRLA, Mucous membr. moist/pink Neck: Supple, No Thyromegaly, Other (Trachea midline) Respiratory: Clear to auscultation bilaterally, Normal air movement Cardiovascular: Normal pulses, Edema Capillary refill: <2 Seconds Gastrointestinal: Normal bowel sounds, Soft and benign Musculoskeletal: No contractures, No erythema, Swelling, Other (Anasarca) Integumentary: No rashes, No breakdown, No significant lesion Neurological: Normal gait, Normal speech, Normal strength at 5/5 x4 extr, Normal tone - Studies Laboratory Data (last 24 hrs) 01/11/20 02:00: PT 13.0 H, INR 1.10 01/11/20 02:00: WBC 12.9 H D, Hgb 7.8 L*, Hct 24.8 L, Plt Count 123 L D 01/11/20 02:00: Sodium 143, Potassium 5.1, BUN 60 H D, Creatinine 8.40 H* D, Glucose 145 H, Magnesium 2.1, Total Bilirubin 0.3, AST 44 H, ALT 33, Alkaline Phosphatase 108 <Dread Scott - Last Filed: 01/11/20 03:40> - Studies Laboratory Data (last 24 hrs) 01/11/20 02:00: PT 13.0 H, INR 1.10 01/11/20 02:00: WBC 12.9 H D, Hgb 7.8 L*, Hct 24.8 L, Plt Count 123 L D 01/11/20 02:00: Sodium 143, Potassium 5.1, BUN 60 H D, Creatinine 8.40 H* D, Glucose 145 H, Magnesium 2.1, Total Bilirubin 0.3, AST 44 H, ALT 33, Alkaline Phosphatase 108 <Patrick Brown - Last Filed: 01/11/20 17:05> Assessment and Plan - Plan Impression: End-stage renal disease on dialysis Saturday complicated by missed dialysis session x2 or 3: Anasarca secondary to missed dialysis and complicated by history of heart failure: Chronic systolic and diastolic congestive heart failure with likely exacerbation: Anemia of chronic disease: Essential hypertension: Plan: End-stage renal disease on dialysis Saturday complicated by missed dialysis session x2 or 3: Patient was discharged from the hospital recently for missed dialysis session. Patient returns today complaining of shortness of breath with minimal exertion and swelling all over. Admits to missing his dialysis sessions x2 or 3. Consult nephrology-Dr. Cruz who saw patient last. Patient will need dialysis. Anasarca secondary to missed dialysis and complicated by history of heart failure: Complaining of swelling all over the body. Likely secondary to missed dialysis sessions. Will dialyze and monitor swelling. Chronic systolic and diastolic congestive heart failure with likely exacerbation: BNP of 13 K with complaints of shortness of breath with minimal exertion. Likely secondary to above reasons. Will start continuous telemetry. Patient will need dialysis. Anemia of chronic disease: Hemoglobin hematocrit of 7.8/24.8. Patient has a history of chronic anemia. May require transfusion prior to discharge. Essential hypertension: Will resume all medications once verified. Monitor blood pressure. - Advance Directives Does patient have a Living Will: No Does patient have a Durable POA for Healthcare: No - Code Status/Comfort Care Code Status Assessed: Yes Time Spent Managing Pts Care (In Minutes): 55 <Dread Scott - Last Filed: 01/11/20 03:40> - Plan Case discussed in detail with physician certified physician's assistant. Patient reassessed in the morning. Please see progress notes. Discharge Plan: Home Plan to discharge in: 72 Hours <Patrikc Brown - Last Filed: 01/11/20 17:05>
[2020-01-11] MEDS ORDERED: FUROSEMIDE 40 MG/4 ML VIAL ONE (04:38)
[2020-01-11] MEDS: HYDROCODONE/APAP 10/325 TAB PO PRN ×4 (04:45→21:31)
[2020-01-11] MEDS: INSULIN -REGULAR HUMAN 50 UNIT/0.5 ML ML SQ SCH ×4 (07:30→21:00)
--- NOTE | 2020-01-11 08:11 | RAD REPORT ---
EXAM DESCRIPTION: Justyn Single View01/11/2020 2:41 am CLINICAL HISTORY: Shortness of breath COMPARISON: December 28, 2019 FINDINGS: Mild bilateral interstitial pulmonary opacities 2 centimeter left upper lobe opacity unchanged The heart is mildly enlarged. Central venous catheter remains in place IMPRESSION: Mild bilateral pulmonary opacities probably mild pulmonary edema 2 centimeter left upper lobe opacity unchanged could represent superimposed pneumonia or nodule and s hould be followed on subsequent exams
[2020-01-11] MEDS ORDERED: HYDROCODONE/APAP 10/325 TAB ONE ×2 (08:18→15:30)
[2020-01-11] MEDS ORDERED: GABAPENTIN 300 MG CAP ONE ×2 (08:18→13:41)
[2020-01-11] MEDS ORDERED: PANTOPRAZOLE 40MG TABLET PO ONE (08:18)
[2020-01-11] MEDS ORDERED: ENOXAPARIN 30 MG/0.3 ML SQ ONE (08:19)
[2020-01-11 08:29] LABS: Urine Appearance CLEAR; Urine Bilirubin NEGATIVE (NEG); Urine Blood TRACE (NEG); Urine Color YELLOW; Urine Glucose TRACE (NEG); Urine Protein 3+ (NEG); Urine Specific Gravity 1.015 (1.005-1.030); Urine Urobilinogen 0.2 mg/dL (0.2-1.0); Urine pH 7.5 (5.0-7.0)
[2020-01-11] MEDS: PANTOPRAZOLE 40MG TABLET PO SCH (08:36)
[2020-01-11] MEDS: ENOXAPARIN 30 MG/0.3 ML SQ SCH (08:36)
[2020-01-11] MEDS: GABAPENTIN 300 MG CAP PO SCH ×3 (08:37→21:31)
[2020-01-11 08:59] LABS: Urine Bacteria <20 /HPF (NONE SEEN); Urine Culture Reflex Order REFLEXED; Urine RBC <5 /HPF (NONE SEEN)
[2020-01-11] MEDS: HYDRALAZINE HCL 25 MG TABLET PO SCH ×3 (09:00→21:31)
[2020-01-11] MEDS: LOSARTAN POTASSIUM 50 MG TABLET PO SCH (09:00)
[2020-01-11] MEDS: cloNIDine HCL 0.1 MG TAB PO SCH ×3 (09:00→21:31)
[2020-01-11] MEDS ORDERED: PNEUMOCOCCAL VACCINE 0.5 ML IMVAC ONE (09:00)
[2020-01-11] MEDS: AMLODIPINE 10 MG TAB PO SCH (09:00)
[2020-01-11] MEDS: METOPROLOL TAR 50 MG TAB PO SCH ×2 (09:00→21:31)
--- NOTE | 2020-01-11 14:44 | P.PN ---
Subjective Date of Service: 01/11/20 Subjective: Improving, Doing well Physical Examination - Vital Signs Temperature: 97.7 F Blood Pressure: 159/83 Pulse: 74 Respirations: 14 Pulse Ox (%): 99 - Physical Exam General: Alert, In no apparent distress, Cooperative HEENT: Atraumatic Neck: Supple Respiratory: Clear to auscultation bilaterally, Normal air movement Cardiovascular: Normal pulses, Regular rate/rhythm Integumentary: Tenderness/swelling (2+ pitting edema) Urinary: Other (scrotal edema) - Studies Laboratory Data (last 24 hrs) 01/11/20 02:00: PT 13.0 H, INR 1.10 01/11/20 02:00: WBC 12.9 H D, Hgb 7.8 L*, Hct 24.8 L, Plt Count 123 L D 01/11/20 02:00: Sodium 143, Potassium 5.1, BUN 60 H D, Creatinine 8.40 H* D, Glucose 145 H, Magnesium 2.1, Total Bilirubin 0.3, AST 44 H, ALT 33, Alkaline Phosphatase 108 Medications List Reviewed: Yes Assessment & Plan Discharge Plan: Home Plan to discharge in: 72 Hours Physician Review Additional Text: Impression: Anasarca, scrotal edema, pulmonary edema secondary to acute on chronic diastolic CHF with noncompliance of hemodialysis dialysis End-stage renal disease on hemodialysis with poor compliance Hypertension Anemia of chronic disease Depression with anxiety Plan: Anasarca, scrotal edema, pulmonary edema secondary to acute on chronic diastolic CHF with noncompliance of hemodialysis dialysis: Patient will restart dialysis. Advanced care planning addressed in detail. Patient previously at a long term. Due to his poor compliance he left the long term. Compliance with dialysis has been an issue. This was discussed in detail with the patient. Patient understands the risk of missing multiple dialysis. Patient willing to try to be compliant. Social work will need to reinitiate outpatient dialysis. Patient to remain in the hospital and continue with diuresis and dialysis. Anticipate improvement over the next 48 hr. Patient can possibly be discharged at that time once outpatient dialysis is arranged. Advanced care planning-30 min. End-stage renal disease on hemodialysis with poor compliance: Continue with dialysis as directed Hypertension: Restart home medication. Anemia of chronic disease: Will monitor closely. Maintain hemoglobin above 7.0. Depression with anxiety: Restart home medication. Time Spent Managing Pts Care (In Minutes): 55
[2020-01-11] MEDS: EPOETIN ALFA 10,000 UNIT/ML VIAL IV SCH (20:00)
[2020-01-11] MEDS: RISPERIDONE 1 MG TABLET PO SCH ×2 (21:00→21:31)
[2020-01-11] MEDS: ATORVASTATIN 20 MG TAB PO SCH (21:31)
[2020-01-11] MEDS: BENZONATATE 100 MG CAP PO PRN (22:56)
[2020-01-12] MEDS: HYDROCODONE/APAP 10/325 TAB PO PRN ×6 (01:12→21:10)
--- NOTE | 2020-01-12 01:17 | CON ---
Date of Consultation: 01/11/2020 Chief Complaint: End-stage renal disease, on dialysis. History Of Present Illness: The patient has multiple medical problems including history of hypertension, hypertensive heart and kidney disease, diabetes mellitus, history of CVA. He has been dialyzed on TTS schedule, although he is very noncompliant. He came to the hospital because he needs 2 or 3 consecutive dialysis session. He presented to emergency room complaining of shortness of breath with light activity, chest discomfort, swelling in the legs, and generalized edema. He denies chest pain, nonproductive cough, diaphoresis, syncope. The patient is alert, oriented, not in acute distress. He has fluid overload and lower extremity edema as well as upper extremity edema. Review of Systems: Constitutional: Denies fever or chills. Eyes: Denies vision changes. Ears, Nose, Mouth, and Throat: Denies sore throat or earache. Respiratory: Shortness of breath with light activity. Cardiovascular: Denies syncope. GI: Denies nausea or vomiting. : Denies dysuria or hematuria. All other systems reviewed are negative. Past Medical History: Hypertension, diabetes mellitus on insulin, osteoarthritis, end-stage renal disease, anemia, CKD, renal osteodystrophy, drug abuse, CVA in 2015, congestive heart failure. Social History: Denies alcohol. He has history of drug abuse. Past Surgical History: EGD, Tesio catheter, right partial patellectomy, patellar tendon repair in 2019, colonoscopy. Family History: Father had a cancer. The patient does not know origin of the cancer. Physical Examination: General: The patient is awake, alert, follows commands. Eyes: Anicteric sclerae. EOMI. Ears, Nose, Mouth, and Throat: Oral mucosa moist. No pallor. Neck: Supple. No bruits. Lungs: Diminished breath sounds at bases. Few crackles. Heart: S1, S2. No pericardial friction rub. Abdomen: Soft, benign, nontender. No rebound. No guarding. Extremities: Edema present in both legs. Neurologic: No tremor. Moving extremities. Follows commands. Laboratory Data: INR 1.1. WBC 12.9, hemoglobin 7.8, hematocrit 24.8, platelet count 123,000. Bilirubin 0.3, potassium 5.1, sodium 143, BUN 60, creatinine 8.4, glucose 145. Impression And Plan: 1. End-stage renal disease. The patient has history of noncompliance with dialysis. He presented to the hospital because of fluid overload and shortness of breath. 2. The patient has congestive heart failure exacerbation with diastolic congestive heart failure, uncontrolled hypertension. Blood pressure medications were resumed and blood pressure is improving. 3. Anemia. SCARLETT is resumed. Due to chronic kidney disease. 4. Renal osteodystrophy. Continue renal diet and binders. 5. Diabetes mellitus. Continue insulin. ANSLEY/ZULEIMA Voice ID: [id number] Report ID: [id number] MTDD
[2020-01-12 04:18] LABS: Absolute Lymphocytes (CBC) 0.9 K/uL (0.7-4.9); Basophils % 0.2 % (0-1.3); Hematocrit 24.1 % (39.6-49.0); Lymphocytes % 8.7 % (15.3-44.8); RBC Red Blood Cell Count 2.55 M/uL (4.33-5.43)
[2020-01-12 04:34] LABS: Potassium 5.2 mmol/L (3.5-5.1)
[2020-01-12 05:27] VITALS: BMI 27.8
[2020-01-12] MEDS: INSULIN -REGULAR HUMAN 50 UNIT/0.5 ML ML SQ SCH ×4 (07:30→21:00)
[2020-01-12] MEDS: HYDRALAZINE HCL 25 MG TABLET PO SCH ×3 (08:10→22:11)
[2020-01-12] MEDS: cloNIDine HCL 0.1 MG TAB PO SCH ×2 (08:10→21:00)
[2020-01-12] MEDS: LOSARTAN POTASSIUM 50 MG TABLET PO SCH (08:11)
[2020-01-12] MEDS: METOPROLOL TAR 50 MG TAB PO SCH ×2 (08:11→22:11)
[2020-01-12] MEDS: ENOXAPARIN 30 MG/0.3 ML SQ SCH (08:50)
[2020-01-12] MEDS: PANTOPRAZOLE 40MG TABLET PO SCH (08:51)
[2020-01-12] MEDS: GABAPENTIN 300 MG CAP PO SCH (08:52)
[2020-01-12] MEDS: NEPRO SHAKE 237 ML CAN PO SCH ×3 (08:56→21:00)
[2020-01-12] MEDS: AMLODIPINE 10 MG TAB PO SCH (08:57)
--- NOTE | 2020-01-12 12:57 | P.PN ---
Subjective Date of Service: 01/12/20 Subjective: Improving (Edema to scrotum and edema improved) Physical Examination - Vital Signs Temperature: 98.2 F Blood Pressure: 163/82 Pulse: 65 Respirations: 18 Pulse Ox (%): 98 - Physical Exam General: Alert, In no apparent distress, Oriented x3, Cooperative HEENT: Atraumatic Neck: Supple Respiratory: Crackles/rales (Mild crackles to the bases) Cardiovascular: Normal pulses, Regular rate/rhythm Integumentary: Tenderness/swelling (2+ pitting edema to the lower extremities slight improvement. Still with scrotal edema) Neurological: Normal speech, Normal strength at 5/5 x4 extr, Normal tone External genitalia: Other (Scrotal edema noted) - Studies Medications List Reviewed: Yes Assessment & Plan Discharge Plan: Home Plan to discharge in: 48 Hours Physician Review Additional Text: Impression: Anasarca, scrotal edema, pulmonary edema secondary to acute on chronic diastolic CHF with noncompliance of hemodialysis dialysis End-stage renal disease on hemodialysis with poor compliance Hypertension Anemia of chronic disease Depression with anxiety Plan: Anasarca, scrotal edema, pulmonary edema secondary to acute on chronic diastolic CHF with noncompliance of hemodialysis dialysis: Continue fluid restriction and dialysis. Case discussed with nephrology. Nephrology will likely dialyze sonny ent again today. Re-initiation of outpatient dialysis underway. Encourage ambulation. Will have physical therapy assess ambulation. Anticipate approval end likely discharge in the next 48 hr once outpatient dialysis can be arranged. End-stage renal disease on hemodialysis with poor compliance: Continue with dialysis as directed. outpatient dialysis will need to be re-initiated Hypertension: Continue medication. Anemia of chronic disease: Will monitor closely. Maintain hemoglobin above 7.0. Depression with anxiety: Continue medication. Time Spent Managing Pts Care (In Minutes): 55
[2020-01-12] MEDS: GABAPENTIN 100 MG CAP PO SCH ×2 (13:37→22:11)
[2020-01-12] MEDS: FUROSEMIDE 40 MG/4 ML VIAL IV SCH ×2 (13:37→22:11)
--- NOTE | 2020-01-12 14:15 | PN ---
Date of Progress Note: 01/12/2020 Subjective: The patient was admitted with over volume anasarca. Patient had dialysis yesterday, managed to remove 3 L. Physical Examination: Vital Signs: Blood pressure 165/81, pulse of 71, afebrile. Chest: Crackles bilateral. Heart: S1, S2. Systolic murmur. Abdomen: Soft, nontender. Extremities: +3 edema with scrotal edema. Neurological: Alert and oriented x3. No focal. Laboratory Data: WBC 10.2, H and H 7.7/24, platelets of 112. Sodium 145, potassium 5.2, bicarb 27, BUN 43, creatinine 6.4, calcium 7.4, magnesium of 2. Assessment And Plan: 1. End-stage renal disease, over volume with anasarca. I am going to start the patient on daily dialysis. Yesterday, the patient had full dialysis. Today, we will do sequential of 2 hours and we will challenge the patient. Then, we will do another session of dialysis tomorrow and we will keep challenging the patient. I am going to discontinue amlodipine as it can contribute to his peripheral edema and start the patient on Lasix to establish better volume control for the patient. We will start his Lasix every 8 hours and we will follow up the patient. 2. Hypertension, controlled. We will utilize the blood pressure for more ultrafiltration. Discontinue amlodipine given the peripheral edema. Start the patient on Lasix 80 t.i.d. and we will follow up. 3. I am going to go ahead and increase his losartan to 100 mg given the fact that the patient has significant nephrotic range proteinuria, which can contribute to his swelling, and we will try to taper down the clonidine and again discontinue the amlodipine. 4. Neuropathy. Given the presence of the edema, I am going to go ahead and decrease gabapentin to 200 and will follow up. 5. Anasarca secondary to renal failure, poor compliant with diet. I am going to go ahead and do daily dialysis for the patient. We will go ahead and send for TSH and will follow up. 6. Anemia of chronic kidney disease. Continue SCARLETT. 7. Diabetes as by primary. 8. 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 Increase losartan. time spent for face to face care , placing order and dicussing with staff, other professional benefits sales consultant and patient/ patient family 35 min MALINDA/ZULEIMA Voice ID: [id number] Report ID: [id number] KATIE
[2020-01-12] MEDS: RISPERIDONE 1 MG TABLET PO SCH (21:00)
[2020-01-12] MEDS: ATORVASTATIN 20 MG TAB PO SCH (22:11)
[2020-01-13] MEDS: HYDROCODONE/APAP 10/325 TAB PO PRN ×6 (00:40→21:08)
[2020-01-13 04:37] LABS: Albumin 2.5 g/dL (3.4-5.0); Phosphorus 5.4 mg/dL (2.5-4.9)
[2020-01-13 04:46] LABS: Potassium 5.7 mmol/L (3.5-5.1); Thyroid Stimulating Hormone 17.2 uIU/mL (0.360-3.740)
[2020-01-13] MEDS ORDERED: SOD POLYSTYREN SUL 15 GM/60 ML UCUP PO ONE (04:51)
[2020-01-13] MEDS: INSULIN -REGULAR HUMAN 50 UNIT/0.5 ML ML SQ SCH ×4 (07:30→20:29)
[2020-01-13] MEDS: GABAPENTIN 100 MG CAP PO SCH ×3 (08:51→21:08)
[2020-01-13] MEDS: cloNIDine HCL 0.1 MG TAB PO SCH ×3 (08:51→19:41)
[2020-01-13] MEDS: FUROSEMIDE 40 MG/4 ML VIAL IV SCH ×3 (08:52→21:08)
[2020-01-13] MEDS: ENOXAPARIN 30 MG/0.3 ML SQ SCH ×3 (08:52→10:28)
[2020-01-13] MEDS: LOSARTAN POTASSIUM 50 MG TABLET PO SCH ×2 (08:54→09:00)
[2020-01-13] MEDS: METOPROLOL TAR 50 MG TAB PO SCH ×3 (08:54→21:00)
[2020-01-13] MEDS: PANTOPRAZOLE 40MG TABLET PO SCH (08:55)
[2020-01-13] MEDS: HYDRALAZINE HCL 25 MG TABLET PO SCH ×4 (08:55→21:00)
[2020-01-13] MEDS: NEPRO SHAKE 237 ML CAN PO SCH ×3 (08:56→22:28)
--- NOTE | 2020-01-13 14:13 | PN ---
Date of Progress Note: 01/13/2020 Subjective: Patient was admitted with anasarca. Respond to diuresis and ultrafiltration. We had another session of dialysis yesterday. Managed to remove 3 L. tolerated very well. Physical Examination: Vital Signs: Blood pressure 170/76, pulse of 60. The patient's weight had dropped by 4 pounds from yesterday. Chest: Crackles bilateral. Heart: S1, S2. Systolic murmur. Abdomen: Soft, nontender. Extremities: +1 edema. Neurologic: Alert and oriented x3. No focal. Laboratory Data: WBC 10.2, H and H 7.7/24.1. Sodium 143, potassium 5.7, bicarb 25, BUN 53, creatinine 7.3, calcium 7.5, phosphorus 5.4. TSH of 17. Current Medications: The patient on include, 1. Atorvastatin. 2. Lovenox. 3. Epogen. 4. Losartan 100. 5. Hydralazine 50 t.i.d. 6. Metoprolol 50 b.i.d. 7. Gabapentin had been decreased yesterday to 200 b.i.d. 8. Lasix 80 t.i.d. 9. Pantoprazole. Assessment And Plan: 1. End-stage renal disease with hyperkalemia and anasarca. I am going to go ahead and continue daily dialysis. Patient is going to be due for another session of dialysis today, then sequential tomorrow, and we will continue to monitor. 2. Hypertension. We will utilize the blood pressure for more ultrafiltration. 3. Hyperkalemia. Patient is going to be dialyzed on low-potassium bath. 4. Secondary hyperparathyroid, controlled. 5. Anemia of chronic kidney disease. Continue SCARLETT. 6. Anasarca secondary to nephrotic range proteinuria, hypothyroidism, and renal failure. We will continue daily dialysis. I am going to start the patient on levothyroxine. We will continue diuresis and we will follow up. 7. Light chain disease. Patient is poor compliant with any treatment. We will follow up. time spent discussing the case with (the staff and other process improvement consultant and the patient) face to face with the patient and reviewing clinical data and placing order 35 min MALINDA/ZULEIMA Voice ID: [id number] Report ID: [id number] MTDD
--- NOTE | 2020-01-13 18:30 | P.PN ---
Subjective Date of Service: 01/13/20 Subjective: Improving, Doing well Physical Examination - Vital Signs Temperature: 98.2 F Blood Pressure: 171/79 Pulse: 64 Respirations: 16 Pulse Ox (%): 99 - Physical Exam General: Alert, Cooperative HEENT: Atraumatic Neck: Supple Respiratory: Clear to auscultation bilaterally, Normal air movement Cardiovascular: Normal pulses, Regular rate/rhythm Gastrointestinal: Normal bowel sounds, No masses, No rebound, No guarding Integumentary: Tenderness/swelling (Edema to the lower extremities improved. Scrotal edema also improved.) Neurological: Normal speech, Normal strength at 5/5 x4 extr, Normal tone, Normal affect - Studies Microbiology Data (last 24 hrs): 01/11/20 06:10 Clean Catch Urine [place] Count - Final <10,000 CFU/ML. 01/11/20 06:10 Clean Catch Urine - Final No growth. Medications List Reviewed: Yes Assessment & Plan Discharge Plan: Home Plan to discharge in: 24 Hours Physician Review Additional Text: Impression: Anasarca, scrotal edema, pulmonary edema secondary to acute on chronic diastolic CHF with noncompliance of hemodialysis dialysis End-stage renal disease on hemodialysis with poor compliance Hypertension Anemia of chronic disease Depression with anxiety Plan: Anasarca, scrotal edema, pulmonary edema secondary to acute on chronic diastolic CHF with noncompliance of hemodialysis dialysis: Continue fluid restriction and dialysis. Case discussed with nephrology. Nephrology will likely dialyze patient again today. Re-initiation of outpatient dialysis underway. Encourage ambulation. Will have physical therapy assess ambulation. Anticipate approval for dialysis in the next 48 hr. Once this has been approved then will initiate discharge. End-stage renal disease on hemodialysis with poor compliance: Continue with dialysis as directed. outpatient dialysis will need to be re-initiated Hypertension: Continue medication. Will continue to monitor and adjust appropriately. Anemia of chronic disease: Will monitor closely. Maintain hemoglobin above 7.0. Depression with anxiety: Continue medication. Time Spent Managing Pts Care (In Minutes): 55
[2020-01-13] MEDS: RISPERIDONE 1 MG TABLET PO SCH (19:41)
[2020-01-13] MEDS: ATORVASTATIN 20 MG TAB PO SCH (21:08)
[2020-01-14] MEDS: BENZONATATE 100 MG CAP PO PRN ×2 (00:50→21:06)
[2020-01-14] MEDS: HYDROCODONE/APAP 10/325 TAB PO PRN ×4 (00:50→20:54)
[2020-01-14 04:44] LABS: Albumin 2.8 g/dL (3.4-5.0); Phosphorus 5.7 mg/dL (2.5-4.9); Potassium 5.5 mmol/L (3.5-5.1)
[2020-01-14] MEDS: METOPROLOL TAR 50 MG TAB PO SCH ×2 (05:13→20:56)
[2020-01-14] MEDS: HYDRALAZINE HCL 25 MG TABLET PO SCH ×3 (05:13→20:54)
[2020-01-14] MEDS: LEVOTHYROXINE SOD 0.075 MG TAB PO SCH (05:41)
[2020-01-14] MEDS: cloNIDine HCL 0.1 MG TAB PO SCH ×3 (05:57→20:56)
[2020-01-14] MEDS: INSULIN -REGULAR HUMAN 50 UNIT/0.5 ML ML SQ SCH ×4 (07:30→20:56)
[2020-01-14] MEDS: ENOXAPARIN 30 MG/0.3 ML SQ SCH (08:11)
[2020-01-14] MEDS: PANTOPRAZOLE 40MG TABLET PO SCH (08:11)
[2020-01-14] MEDS: GABAPENTIN 100 MG CAP PO SCH ×3 (08:12→20:54)
[2020-01-14] MEDS: FUROSEMIDE 40 MG/4 ML VIAL IV SCH ×3 (08:12→20:55)
[2020-01-14] MEDS: LOSARTAN POTASSIUM 50 MG TABLET PO SCH (08:22)
[2020-01-14] MEDS: NEPRO SHAKE 237 ML CAN PO SCH ×2 (09:00→13:47)
--- NOTE | 2020-01-14 10:58 | P.PN ---
Subjective Date of Service: 01/14/20 Primary Care Provider: None; Nephrology-Dr. Cruz Chief Complaint: Missed dialysis Subjective: Doing well Physical Examination - Vital Signs Temperature: 98 F Blood Pressure: 124/61 Pulse: 53 Respirations: 16 Pulse Ox (%): 97 - Physical Exam General: Alert, In no apparent distress, Oriented x3, Cooperative HEENT: Atraumatic Neck: Supple Respiratory: Clear to auscultation bilaterally, Normal air movement Cardiovascular: Normal pulses, Regular rate/rhythm Gastrointestinal: Normal bowel sounds, Soft and benign, Non-distended Integumentary: Tenderness/swelling (Edema to the lower extremity significantly improved. This includes scrotal edema.) - Studies Microbiology Data (last 24 hrs): 01/11/20 06:10 Clean Catch Urine [place] Count - Final <10,000 CFU/ML. 01/11/20 06:10 Clean Catch Urine - Final No growth. Medications List Reviewed: Yes Assessment & Plan Discharge Plan: Home Plan to discharge in: 24 Hours Physician Review Additional Text: Impression: Anasarca, scrotal edema, pulmonary edema secondary to acute on chronic diastolic CHF with noncompliance of hemodialysis dialysis End-stage renal disease on hemodialysis with poor compliance Hypertension Anemia of chronic disease Depression with anxiety Plan: Anasarca, scrotal edema, pulmonary edema secondary to acute on chronic diastolic CHF with noncompliance of hemodialysis dialysis: Edema improved with dialysis. Continue fluid restriction and dialysis. Case discussed with nephrology. Patient had dialysis early this morning. Re-initiation of outpatient dialysis underway. Encourage ambulation. Will have physical therapy assess ambulation is well. Anticipate discharge once outpatient dialysis has been arranged. End-stage renal disease on hemodialysis with poor compliance: Continue with dialysis as directed. outpatient dialysis will need to be re-initiated Hypertension: Continue medication. Will continue to monitor and adjust appropriately. Anemia of chronic disease: Will monitor closely. Maintain hemoglobin above 7.0. Depression with anxiety: Continue medication. Time Spent Managing Pts Care (In Minutes): 55
--- NOTE | 2020-01-14 14:50 | PN ---
Date of Progress Note: 01/14/2020 Subjective: Patient was admitted with anasarca, over volume. Patient is seen on daily dialysis. Patient had dialysis yesterday. We managed to remove 5 L. Patient is still complaining of some scrotal swelling and lower extremity swelling, but getting better. Physical Examination: Vital Signs: When I saw the patient, blood pressure 124/61, pulse of 53. The patient again had ultrafiltration and fluid removal of 5 L. Had urine output of 900. Had weight dropped by 9 pounds from yesterday. Chest: Faint crackles at bilateral base. Decreased air entry on the right side. Heart: S1, S2, systolic murmur. Abdomen: Soft, nontender. Scrotal swelling but slightly better. Extremities: +1 edema more on the upper thigh. The upper extremity swelling has been improved significantly. Neuro: Alert, oriented x3. No focal. Laboratory Data: WBC 10.2, H and H 7.7/24.1. Sodium 144, potassium 5.5, bicarb 27, BUN 65, creatinine 8, calcium 7.4, phosphorous 5.7, albumin 2.8. Current Medications: The patient on include, 1. Atorvastatin. 2. Clonidine 0.2 b.i.d. 3. Hydralazine 50 t.i.d. 4. Losartan 100. 5. Metoprolol 50 b.i.d. 6. Gabapentin 200 t.i.d. 7. Risperidone. 8. Lasix 80 t.i.d. 9. Nepro. 10. Insulin. 11. Levothyroxine. Assessment And Plan: 1. End-stage renal disease, over volume. I am going to continue daily dialysis. Patient is going to go under sequential today with 2 L and we will challenge again. 2. Hypertension, currently blood pressure started to be better controlled after the ultrafiltration. I am going to go ahead and decrease his clonidine to 0.1 b.i.d. We will continue to taper to utilize the blood pressure for more ultrafiltration and diuresis. 3. Anasarca multifactorial secondary to renal failure, nephrotic range proteinuria, hypothyroidism, the patient was started on levothyroxine yesterday. Continue diuresis. Continue daily dialysis. 4. Deconditioning. Continue PT, OT. 5. Anemia, multifactorial secondary to chronic kidney disease/light chain disease. The patient refused any treatment. Continue SCARLETT for the time being. No need for transfusion. 6. Hyperkalemia. Patient is going to be dialyzed on low-potassium bath. 7. Secondary hyperparathyroid. Continue binder. 8. Hep C, as by primary. time spend to coordinate the care , speaking with other Physician and team staff , face to face with the patient and placing order 35 min ROMAN Voice ID: [id number] Report ID: [id number] KATIE
[2020-01-14 19:03] LABS: HBsAG Nonreactive (Nonreactive)
[2020-01-14] MEDS: ATORVASTATIN 20 MG TAB PO SCH (20:54)
[2020-01-14] MEDS: RISPERIDONE 1 MG TABLET PO SCH ×2 (20:57→20:59)
[2020-01-14] MEDS: GLUCERNA SHAKE 237 ML CAN PO SCH (21:08)
[2020-01-15] MEDS: HYDROCODONE/APAP 10/325 TAB PO PRN ×5 (02:20→19:55)
[2020-01-15 04:25] LABS: Albumin 2.5 g/dL (3.4-5.0); Phosphorus 6.2 mg/dL (2.5-4.9)
[2020-01-15 04:45] LABS: Potassium 6.1 mmol/L (3.5-5.1)
[2020-01-15] MEDS: LEVOTHYROXINE SOD 0.075 MG TAB PO SCH (06:11)
[2020-01-15] MEDS: INSULIN -REGULAR HUMAN 50 UNIT/0.5 ML ML SQ SCH ×4 (07:30→19:57)
[2020-01-15] MEDS: cloNIDine HCL 0.1 MG TAB PO SCH ×3 (09:00→19:56)
[2020-01-15] MEDS: GLUCERNA SHAKE 237 ML CAN PO SCH ×2 (09:00→19:58)
[2020-01-15] MEDS: ENOXAPARIN 30 MG/0.3 ML SQ SCH (10:16)
[2020-01-15] MEDS: HYDRALAZINE HCL 25 MG TABLET PO SCH ×3 (10:17→19:56)
[2020-01-15] MEDS: METOPROLOL TAR 50 MG TAB PO SCH ×2 (10:17→19:57)
[2020-01-15] MEDS: PANTOPRAZOLE 40MG TABLET PO SCH (10:17)
[2020-01-15] MEDS: LOSARTAN POTASSIUM 50 MG TABLET PO SCH (10:17)
[2020-01-15] MEDS: GABAPENTIN 100 MG CAP PO SCH ×3 (10:17→19:56)
[2020-01-15] MEDS: FUROSEMIDE 40 MG/4 ML VIAL IV SCH ×3 (10:18→19:55)
--- NOTE | 2020-01-15 11:05 | P.PN ---
Subjective Date of Service: 01/16/20 Primary Care Provider: None; Nephrology-Dr. Cruz Chief Complaint: Missed dialysis Pt with ESRD,non compliant with HD admitted with fluid overload pt is non compliant with HD , last HD was ~3wks ago pt had cardiac cath last year with 30% LAD stenosis today No new complaints , still feeling weak seen and examined during HD edema significantly improved will use low K bath can be discharged after HD today and resume HD tomorrow as an OP Physical exam general: Awake and alert, in mild to moderate distress Neck; Supple, No elevated JVD hear: RRR, normal S1,2 no murmur or rub Chest: CTAB, no rales or wheezes Abdomen: Soft , Nt , scrotal edema Extremities no edema, Lt knee with cast A/P ESRD on HD TTsat via Rt IJ cath HD today renal dose meds fluid overload HD today , and can resume tomorrow as an OP Anemia of chronic disease cont Epogen MBD cont binders HTN BP controlled now cont current meds Hep C Gi evaluation as an OP Physical Examination - Vital Signs Temperature: 98.2 F Blood Pressure: 138/78 Pulse: 62 Respirations: 18 Pulse Ox (%): 98 - Studies Medications List Reviewed: Yes
--- NOTE | 2020-01-15 15:24 | P.PN ---
Subjective Date of Service: 01/15/20 Primary Care Provider: None; Nephrology-Dr. Cruz Chief Complaint: Missed dialysis Subjective: Improving, Doing well Physical Examination - Vital Signs Temperature: 98 F Blood Pressure: 131/58 Pulse: 62 Respirations: 16 Pulse Ox (%): 98 - Physical Exam General: Alert, In no apparent distress, Oriented x3, Cooperative HEENT: Atraumatic Neck: Supple Respiratory: Clear to auscultation bilaterally, Normal air movement Cardiovascular: Normal pulses, Regular rate/rhythm Gastrointestinal: Normal bowel sounds, Soft and benign, Non-distended Integumentary: Tenderness/swelling (Edema to the lower extremities improved. This includes scrotal edema.) Neurological: Normal speech, Normal strength at 5/5 x4 extr, Normal tone - Studies Medications List Reviewed: Yes Assessment & Plan Discharge Plan: Home Plan to discharge in: 24 Hours Physician Review Additional Text: Impression: Anasarca, scrotal edema, pulmonary edema secondary to acute on chronic diastolic CHF with noncompliance of hemodialysis dialysis End-stage renal disease on hemodialysis with poor compliance Hypertension Anemia of chronic disease Depression with anxiety Plan: Anasarca, scrotal edema, pulmonary edema secondary to acute on chronic diastolic CHF with noncompliance of hemodialysis dialysis: Edema improved with dialysis. Continue with fluid restriction and dialysis. Spoke with nephrology about plan of care. Also spoke to social media manager. Outpatient hemodialysis has been arranged for Saturday, and Saturday. 1st outpatient dialysis to occur on Saturday. Therefore we will hold patient on till tomorrow for dialysis then discharge tomorrow. Compliance with dialysis address in detail. Patient understands this. Patient plans to be compliant. Anticipate discharge tomorrow after dialysis. End-stage renal disease on hemodialysis with poor compliance: Continue with dialysis as directed. Outpatient dialysis arrange. Initial outpatient dialysis on Saturday. Hypertension: Continue medication. Will continue to monitor and adjust appropriately. Anemia of chronic disease: Will monitor closely. Maintain hemoglobin above 7.0. Depression with anxiety: Continue medication. Time Spent Managing Pts Care (In Minutes): 55
[2020-01-15] MEDS: ATORVASTATIN 20 MG TAB PO SCH (19:56)
[2020-01-15] MEDS: RISPERIDONE 1 MG TABLET PO SCH (19:57)
[2020-01-16] MEDS: HYDROCODONE/APAP 10/325 TAB PO PRN ×3 (00:16→08:49)
[2020-01-16] MEDS: LEVOTHYROXINE SOD 0.075 MG TAB PO SCH (04:39)
[2020-01-16 05:16] VITALS: O2SAT 98
[2020-01-16 05:20] LABS: Albumin 2.6 g/dL (3.4-5.0); Phosphorus 5.8 mg/dL (2.5-4.9); Potassium 5.5 mmol/L (3.5-5.1)
[2020-01-16] MEDS: INSULIN -REGULAR HUMAN 50 UNIT/0.5 ML ML SQ SCH ×2 (07:30→11:30)
[2020-01-16] MEDS: FUROSEMIDE 40 MG/4 ML VIAL IV SCH (08:49)
[2020-01-16] MEDS: HYDRALAZINE HCL 25 MG TABLET PO SCH (08:49)
[2020-01-16] MEDS: PANTOPRAZOLE 40MG TABLET PO SCH (08:50)
[2020-01-16] MEDS: GABAPENTIN 100 MG CAP PO SCH (08:50)
[2020-01-16] MEDS: GLUCERNA SHAKE 237 ML CAN PO SCH (08:50)
[2020-01-16] MEDS: LOSARTAN POTASSIUM 50 MG TABLET PO SCH (08:50)
[2020-01-16] MEDS: cloNIDine HCL 0.1 MG TAB PO SCH (08:50)
[2020-01-16] MEDS: ENOXAPARIN 30 MG/0.3 ML SQ SCH (08:51)
[2020-01-16] MEDS: METOPROLOL TAR 50 MG TAB PO SCH (08:51)
--- NOTE | 2020-01-16 11:35 | P.DS ---
Admission Date: 01/11/20 Discharge Date: 01/16/20 Primary Care Provider: None; Nephrology-Dr. Cruz Disposition: ROUTINE DISCHARGE Discharge Condition: FAIR Reason for Admission: Missed dialysis Brief History of Present Illness: History of Present Illness: 63-year-old male with a past medical history of chronic congestive heart failure, end-stage renal disease on dialysis TTS, chronic anemia, prior CVA, type 2 diabetes mellitus and hypertension presents to the emergency room complaining of shortness of breath with light activity. Patient states he has missed his dialysis session 2 or 3 times again. He was admitted a week ago for missing his dialysis for 2 weeks and last month for missing his dialysis for 2 weeks. Patient is also noticing swelling all over the body. He denies any chest pain, nonproductive cough of productive cough diaphoresis dizziness fever any loss of consciousness, nausea or vomiting. Patient has severe noncompliance with his dialysis and has been admitted multiple times to the hospital for missing dialysis. Patient is alert oriented and in no distress. He is volume overloaded with swelling in his lower extremities extending to his upper thighs. States he feels swollen all over and his legs are tender to touch. In the emergency room lab work shows creatinine levels of 8.40 and hemoglobin of 7.8 with a hematocrit of 24.8. Patient will be placed in observation and further evaluated. He will require dialysis. Hospital Course: Patient with history of ESRD admitted for shortness of breath and scrotal swelling. He was diagnosed with fluid overload due to recurring missed dialysis. He was started on dialysis shortness of breath significantly improved. Counseling on dialysis compliance has been discussed. Patient has been scheduled for Saturday schedule. He was complaining of right shoulder pain which improved with Clarita but was discharged with Voltaren cream p.r.n.. Her appointment with pain clinic has been set up for him. Vital Signs/Physical Exam: Temp Pulse Resp BP Pulse Ox 97.1 F 57 18 153/67 H 93 01/16/20 08:00 01/16/20 08:51 01/16/20 08:49 01/16/20 08:51 01/16/20 08:49 General: Alert, In no apparent distress, Oriented x3 HEENT: Atraumatic, Normocephalic, PERRLA, Other (right chest wall permacath ) Neck: 2+ carotid pulse no bruit, JVD not distended Respiratory: Clear to auscultation bilaterally, Normal air movement Cardiovascular: Normal pulses, Regular rate/rhythm, Normal S1 S2 Gastrointestinal: Normal bowel sounds, Soft and benign, Non-distended Musculoskeletal: No clubbing, No swelling Neurological: Normal speech, Normal strength at 5/5 x4 extr External genitalia: No edema, No lesions Laboratory Data at Discharge: WBC 10.2 K/uL (4.3-10.9) D 01/12/20 03:36 Hgb 7.7 g/dL (13.6-17.9) L* 01/12/20 03:36 Hct 24.1 % (39.6-49.0) L 01/12/20 03:36 Plt Count 112 K/uL (152-406) L 01/12/20 03:36 PT 13.0 SECONDS (9.5-12.5) H 01/11/20 02:00 INR 1.10 01/11/20 02:00 Sodium Cancelled 01/16/20 06:00 Potassium Cancelled 01/16/20 06:00 BUN Cancelled 01/16/20 06:00 Creatinine Cancelled 01/16/20 06:00 Glucose Cancelled 01/16/20 06:00 Phosphorus 5.8 mg/dL (2.5-4.9) H 01/16/20 04:15 Magnesium 2.0 mg/dL (1.8-2.4) 01/12/20 03:36 Total Bilirubin 0.3 mg/dL (0.2-1.0) 01/11/20 02:00 AST 44 U/L (15-37) H 01/11/20 02:00 ALT 33 U/L (12-78) 01/11/20 02:00 Alkaline Phosphatase 108 U/L (45-117) 01/11/20 02:00 Home Medications: Amlodipine [Norvasc*] 10 mg PO DAILY #30 tab 10/28/19 Losartan Potassium [Cozaar*] 50 mg PO DAILY #30 tablet 01/07/20 Metoprolol Tartrate [Lopressor*] 50 mg PO BID #60 tab 01/07/20 cloNIDine HCL [Clonidine HCl] 0.2 mg PO BID #60 tablet 01/07/20 Cyclobenzaprine [Flexeril*] 10 mg PO TID PRN 01/11/20 Gabapentin 1 cap PO TID 01/11/20 diazePAM [Diazepam] 2 mg PO Q8HP PRN 01/11/20 Diclofenac Sodium [Voltaren] 100 gm TP BID PRN #100 gel..gram. 01/16/20 New Medications: Diclofenac Sodium [Voltaren] 100 gm TP BID PRN #100 gel..gram. PRN Reason: Pain Scale 2-4 (Mild) Patient Discharge Instructions: - Appt with Pain clinic in 1 week Diet: Renal Activity: Ad emilie Time spent managing pt's care (in minutes): 35
[2020-01-16] MEDS: EPOETIN ALFA 10,000 UNIT/ML VIAL IV SCH (12:50)
[2020-01-16 15:17] VITALS: BP 138/78; TEMP 98.2
[2020-01-16 15:56] LABS: Hep C Virus RNA (PCR)log 5.45 log IU/mL
== END 2020-01-16 14:54 | disposition home or self-care (01) | DRG 291 ==
LOC: ER 01:45 → INTOOBSV 03:40 → OBSVTOIN 03:40 → ERHOLD 03:40 → OBSVTOIN 14:45 → ERHOLD 17:23 → 4TH 20:55
PROVIDERS: ADMIT Family Medicine; ATTEND Internal Medicine
PROC: 5A1D70Z Performance of Urinary Filtration, Intermittent, Less than 6 Hours Per Day (ICD-10-PCS; principal; 2020-01-11)
DX: I13.2 Hypertensive heart and chronic kidney disease with heart failure and with stage 5 chronic kidney disease, or end stage renal disease (principal); N18.6 End stage renal disease; I50.33 Acute on chronic diastolic (congestive) heart failure; N25.81 Secondary hyperparathyroidism of renal origin; K21.9 Gastro-esophageal reflux disease without esophagitis; E11.22 Type 2 diabetes mellitus with diabetic chronic kidney disease; D63.1 Anemia in chronic kidney disease; N50.89 Other specified disorders of the male genital organs; E03.9 Hypothyroidism, unspecified; B19.20 Unspecified viral hepatitis C without hepatic coma; E11.40 Type 2 diabetes mellitus with diabetic neuropathy, unspecified; N25.0 Renal osteodystrophy; E87.5 Hyperkalemia; F41.8 Other specified anxiety disorders; D63.8 Anemia in other chronic diseases classified elsewhere; R60.1 Generalized edema; Z86.73 Personal history of transient ischemic attack (TIA), and cerebral infarction without residual deficits; Z99.2 Dependence on renal dialysis; Z91.15 Patient's noncompliance with renal dialysis; Z87.891 Personal history of nicotine dependence; Z88.8 Allergy status to other drugs, medicaments and biological substances; Z79.899 Other long term (current) drug therapy; Z20.828 Contact with and (suspected) exposure to other viral communicable diseases
CPT/HCPCS: 36415; 71045; 80048; 80069; 80076; 81001; 82947; 83735; 83880; 84439; 84443; 84484; 85025; 85610; 86704; 86706; 86803; 87086; 87088; 87340; 87522; 90935; 93005; 96374; 97162; 99285; G0378; J1644; J1650; J1940; Q5105; U0003

== ENCOUNTER 2020-01-23 12:02 | Observation (INO) | payer OTHER ==
--- OUTSIDE RECORDS SUMMARY | 2020-01-23 12:10 | XMS REPORT | Continuity of Care Document ---
:1955 Author Organization [facility] t Address [address] [place] [address] Care Team Providers Name Role Phone Unavailable [...] edema [facility] Chronic Chronic Problem Active [facility] kidney kidney [facility] - disease, disease, Memori a stage 3 stage 3 l (moderate) (moderate) Ou [facility] ent Clinics Other Other Diagnosis Active [facility] closed closed [facility] - fracture fracture Memori a of right of right l patella patella Outpati with with ent routine routine Clinics healing, healing, subsequent subsequent encounter encounter Pain, Pain, Diagnosis Active [facility] joint, joint, [facility] - knee, knee, Memoria right right l [facility] ent Clinics Allergies, Adverse Reactions, Alerts Allergy Allergy Status Severity Reaction(s) Onset Inactive Treating Comm ents Source Name Type Date Date Clinician Corticos Adverse Active anaphylaxis [facility] teroids Reaction [facility] ent [facility] Medications Ordered Filled Start Stop Current Ordering Indication Dosage Frequency Signature Comments Components Source Medication Medication Date Date Medication? Clinician (SIG) Name Name Coreg Coreg Yes Lalo [address] [facility] [place] [facility] Hydrocodone Hydrocodone Yes Lalo (Schedule [facility] -Acetaminop -Acetaminop [place] II Drug) Cris - chantelle lockhart TAKE 1 Memoria TABLET [facility] Clinics NEEDED Pantoprazol Pantoprazol Yes Lalo TAKE [address] [facility] e Sodium e Sodium [place] TABLET BY Lori kes - MOUTH ONCE Memoria A DAY [facility] ent [facility] Coreg Coreg Yes Lalo [address] [facility] [place] [facility] ent [facility] HydrALAZINE HydrALAZINE Yes Lalo [address] [facility] HCl HCl [place] with food [facility] ent [facility] Adjustable Adjustable Yes Lalo USE WITH [facility] Lancing Lancing [place] LANCETS TO Contreras es - Device Device TEST BLOOD Memor ia GLUCOSE [facility] ent [facility] Comfort EZ Comfort EZ Yes Lalo USE TO [facility] Insulin Insulin [place] INJECT [facility] - Syringe Syringe INSULIN Memori a TWICE l DAILY [facility] ent [facility] Amlodipine Amlodipine Yes Lalo TAKE [address] [facility] Besylate Besylate [place] TABLET BY Lori kes - MOUTH ONCE Memoria A DAY [facility] ent [facility] Easy Touch Easy Touch Yes Lalo USE TO [facility] Alcohol Alcohol [place] TEST BLOOD Contreras es - Prep Medium Prep Medium GLUCOSE Memoria TWICE l DAILY [facility] ent [facility] Risperidone Risperidone Yes Lalo TAKE [address] [facility] [place] TABLET BY [facility] - MOUTH AT [facility] BEDTIME [facility] ent [facility] Bumetanide Bumetanide Yes Lalo TAKE 1 [...] Test [place] TEST BLOOD [facility]pat[facility] ent Clinics Senokot S Senokot S Yes Lalo [address] [facility] [place] in the [facility] - evening as Memoria needed l Outpati ent Clinics [facility] Yes Lalo TAKE [address] [facility] [address] Carbonate [...] [place] TABLETS BY [facility] - MOUTH AT [facility] BEDTIME l [facility] ent Clinics Furosemide Furosemide Yes Lalo TAKE [address] [facility] [place] TABLET [facility]ukes - EVERY DAY [facility] ent Clinics Eliquis Eliquis Yes Lalo TAKE [address] [facility] [place] TABLET BY [facility] - MOUTH Memoria TWICE A l DAY [facility] ent Clinics Levemir Levemir Yes Lalo [address] [place] Clinics Atorvastati Atorvastati Yes Lalo TAKE [address] [facility] n Calcium n Calcium [place] TABLET [facility]re[facility] es - [facility] Clinics Protonix Protonix Yes Lalo [address] [facility] [place] [facility] - [facility] l [facility] ent Clinics Amlodipine Amlodipine Yes Lalo TAKE [address] [facility] Besylate Besylate [place] TABLET BY Lori kes - MOUTH ONCE Memoria A DAY [facility] ent Clinics Spironolact Spironolact Yes Lalo [address] [facility] one one [place] Clinics Aspirin Aspirin Yes Lalo [address] [place] [facility] - [facility] l [facility] ent Clinics Metoclopram Metoclopram Yes Lalo TAKE [address] [facility] sirena HCl sirena HCl [place] TABLET BY Luke s - MOUTH Memoria EVERY DAY l [facility] ent Clinics Zolpidem Zolpidem Yes Lalo (Schedule [facility] Tartrate Tartrate [place] IV Drug) Contreras es - TAKE 1 Memoria TABLET BY l MOUTH AT [facility] BEDTIME ent Clinics Neurontin Neurontin Yes Lalo TAKE [address] [facility] [place] CAPSULE BY Lukes - MOUTH Memoria THREE l TIMES A [facility] DAY ent Clinics Procedures This patient has no known procedures. Encounters Start End Encounter Admission Attending Care Care Encounter Source Date/Time Date/Time Type Type Clinicians Facility Department ID 2019-07-19 2019-07-19 Outpatient Becky Cox [id number] [facility] 22:02:00 22:02:00 t [facility] 2019-07-16 2019-07-16 Outpatient Becky Penat [id number] [facility] 08:30:00 08:30:00 t [facility] Results This patient has no known results.
[2020-01-23 12:43] LABS: Absolute Lymphocytes (CBC) 0.7 K/uL (0.7-4.9); Basophils % 0.5 % (0-1.3); Hematocrit 27.6 % (39.6-49.0); Lymphocytes % 4.4 % (15.3-44.8); MPV 9.1 fL (7.6-11.3)
[2020-01-23 13:05] LABS: Albumin 2.9 g/dL (3.4-5.0); Bilirubin Direct 0.1 mg/dL (0-0.2); Bilirubin Total 0.3 mg/dL (0.2-1.0); Magnesium 2.2 mg/dL (1.8-2.4); Potassium 3.6 mmol/L (3.5-5.1); Troponin (Emerg Dept Use Only) 0.04 ng/mL (0.0-0.045)
--- NOTE | 2020-01-23 13:29 | RAD REPORT ---
EXAM DESCRIPTION: RAD - Chest Single View - 01/23/2020 12:41 pm CLINICAL HISTORY: COUGH, weakness, shortness of breath COMPARISON: Portable January 10, portable December 27, portable April 2019 and October 2019 TECHNIQUE: AP portable chest image was obtained 01/23/2020 12:41 pm . FINDINGS: Lung volumes are low. Right-sided dialysis catheter is in place. Interstitial markings are prominent as a baseline. No dense consolidation or new mass lesions seen. Focal nodular opacity in t he left upper lung field is still present. This has been present on several prior short-term interval studies. Heart and vasculature are normal. No measurable pleural effusion and no pneumothorax. No ac dyan bony abnormality seen. No acute aortic findings suspected. IMPRESSION: Interstitial markings are prominent and there is some minimal alveolar opacification pre sent. Patient likely has a minimal amount of edema or volume overload. Heart size is normal. Left upper lobe nodular focus has been present on recent studies but a long-term stability cannot be established. Evaluation on a two-view examination would be helpful. Alternatively, CT chest study cou ld be performed for further clarification. This could be noncontrast if there is poor renal function.
--- NOTE | 2020-01-23 13:34 | EDPHYS ---
Physician Documentation [facility] Name: Billy Trejo Age: 64 yrs Sex: Male : 1955 Arrival Date: 01/23/2020 Time: 12:03 Bed 16 Private MD: ED Physician Emerson Marsh HPI: 01/22 13:21 This 64 yrs old Black Male presents to ER via EMS with complaints of Weakness. alla 13:21 The patient has shortness of breath at rest, with light activity. Onset: The alla symptoms/episode began/occurred this morning, today. Duration: The symptoms are continuous, but are steadily getting better. The patient's shortness of breath has no apparent modifying factors. The patient or guardian reports cough, described as mild, described as moderate, difficulty breathing, flu symptoms, arthralgias, myalgias. Onset: The symptoms/episode began/occurred 2 day(s) ago. Modifying factors: The symptoms are alleviated by nothing. Patient's baseline: Neuro: alert and fully oriented. The patient has experienced similar episodes in the past, a few times. Historical: - Allergies: 12:13 Corticosteroids (Glucocorticoids); aj1 - Home Meds: 15:42 amlodipine oral [Active]; carvedilol Oral [Active]; gabapentin Oral [Active]; ah - PMHx: 12:13 "spot on lung"; Anemia; Dialysis; renal failure; Diabetes - IDDM; High Cholesterol; aj1 Hypertension; Arthritis; CHF; CVA; GERD; GI Bleed; Pneumonia; - Immunization history:: Flu vaccine is not up to date. - Social history:: Smoking status: Patient/guardian denies using tobacco. ROS: 13:22 Constitutional: Negative for fever, chills, and weight loss, Eyes: Negative for injury, alla pain, redness, and discharge, ENT: Negative for injury, pain, and discharge, Neck: Negative for injury, pain, and swelling, Cardiovascular: Negative for chest pain, palpitations, and edema, Abdomen/GI: Negative for abdominal pain, nausea, vomiting, diarrhea, and constipation, Back: Negative for injury and pain, : Negative for injury, bleeding, discharge, and swelling, MS/Extremity: Negative for injury and deformity, Skin: Negative for injury, rash, and discoloration, Neuro: Negative for headache, weakness, numbness, tingling, and seizure, Psych: Negative for depression, anxiety, suicide ideation, homicidal ideation, and hallucinations, Allergy/Immunology: Negative for hives, rash, and allergies, Endocrine: Negative for neck swelling, polydipsia, polyuria, polyphagia, and marked weight changes, Hematologic/Lymphatic: Negative for swollen nodes, abnormal bleeding, and unusual bruising. 13:22 Respiratory: Positive for cough, shortness of breath, wheezing, inspiratory, expiratory. Exam: 13:22 Constitutional: This is a well developed, well nourished patient who is awake, alert, alla and in no acute distress. Head/Face: Normocephalic, atraumatic. Eyes: Pupils equal round and reactive to light, extra-ocular motions intact. Lids and lashes normal. Conjunctiva and sclera are non-icteric and not injected. Cornea within normal limits. Periorbital areas with no swelling, redness, or edema. ENT: Nares patent. No nasal discharge, no septal abnormalities noted. Tympanic membranes are normal and external auditory canals are clear. Oropharynx with no redness, swelling, or masses, exudates, or evidence of obstruction, uvula midline. Mucous membranes moist. Neck: Trachea midline, no thyromegaly or masses palpated, and no cervical lymphadenopathy. Supple, full range of motion without nuchal rigidity, or vertebral point tenderness. No Meningismus. Chest/axilla: Normal chest wall appearance and motion. Nontender with no deformity. No lesions are appreciated. Cardiovascular: Regular rate and rhythm with a normal S1 and S2. No gallops, murmurs, or rubs. Normal PMI, no JVD. No pulse deficits. Abdomen/GI: Soft, non-tender, with normal bowel sounds. No distension or tympany. No guarding or rebound. No evidence of tenderness throughout. Back: No spinal tenderness. No costovertebral tenderness. Full range of motion. Male : Normal genitalia with no discharge or lesions. Skin: Warm, dry with normal turgor. Normal color with no rashes, no lesions, and no evidence of cellulitis. MS/ Extremity: Pulses equal, no cyanosis. Neurovascular intact. Full, normal range of motion. Neuro: Awake and alert, GCS 15, oriented to person, place, time, and situation. Cranial nerves II-XII grossly intact. Motor strength 5/5 in all extremities. Sensory grossly intact. Cerebellar exam normal. Normal gait. Psych: Awake, alert, with orientation to person, place and time. Behavior, mood, and affect are within normal limits. 13:22 Respiratory: the patient does not display signs of respiratory distress, Respirations: normal, Breath sounds: bronchial sounds, that are moderate, decreased breath sounds, that are mild, rhonchi, that are moderate, wheezing: inspiratory expiratory that is mild, that is moderate, is heard in the right upper lobe, right middle lobe, right lower lobe, right posterior upper lobe, left posterior lower lobe, right posterior middle lobe and right posterior lower lobe. 14:21 ECG was reviewed by the Attending Physician. [facility] Vital Signs: 12:00 BP 128 / 65; Pulse 75; Resp 16; Pulse Ox 100% ; ah 12:04 BP 125 / 62; Pulse 74; Resp 18; Temp 98.7(TE); Pulse Ox 99% on R/A; Weight 79.83 kg aj1 (R); Height 5 ft. 11 in. (180.34 cm) (R); Pain 9/10; 13:00 BP 145 / 72; Pulse 69; Resp 22; Pulse Ox 100% ; ah 14:00 BP 143 / 77; Pulse 66; Resp 18; Pulse Ox 100% ; 15:00 BP 150 / 77; Pulse 72; Resp 23; Pulse Ox 100% ; 16:00 BP 136 / 75; Pulse 71; Resp 18; Pulse Ox 100% ; ah 12:04 Body Mass Index 24.55 (79.83 kg, 180.34 cm) aj MDM: 12:07 Patient medically screened. [facility] 13:24 Data reviewed: vital signs, nurses notes, lab test result(s), EKG, radiologic studies, [facility] plain films. 13:28 Differential diagnosis: Anemia asthma, Bronchitis CHF exacerbation, Chronic Obstructive alla Pulmonary Disease bronchitis, URI, pneumonia, pulmonary edema, Pulmonary Embolism reactive airway disease, Sepsis. Antibiotic administration: Zithromax is given, cefepime. The patient's Wells Deep Vein Thrombosis Score was calculated as follows: Malignancy Total Score: 0-2 Pts- Low Risk. The patient's pulmonary embolism risk score was calculated as follows: malignancy Total Score: 0-2 points. This patient was found to be at low risk for a pulmonary embolism by using the Well's assessment criteria. Immunization status: Influenza vaccine:. Data interpreted: herbologist: rate is 74 beats/min, rhythm is regular, Pulse oximetry: on room air is 99 %. Test interpretation: by ED physician or midlevel provider: ECG, plain radiologic studies. ED course: pt weak, sob , cough, 35 minutes in dialysis today. 01/22 12:09 Order name: Basic Metabolic Panel; Complete Time: 13:11 [facility] 01/22 12:09 Order name: CBC with Diff; Complete Time: 13:49 [facility] 01/22 12:09 Order name: LFT's; Complete Time: 13:11 [facility] 01/22 12:09 Order name: Magnesium; Complete Time: 13:11 [facility] 01/22 12:09 Order name: NT PRO-BNP; Complete Time: 13:11 [facility] 01/22 12:09 Order name: Troponin (emerg Dept Use Only); Complete Time: 13:11 [facility] 01/22 12:09 Order name: Lipase; Complete Time: 13:11 [facility] 01/22 12:25 Order name: Blood Culture Adult (2) [facility] 01/22 12:25 Order name: Procalcitonin; Complete Time: 13:19 [facility] 01/22 12:25 Order name: Lactate [facility] 01/22 13:43 Order name: CBC Smear Scan; Complete Time: 13:49 EDMS 01/22 13:49 Order name: COVID-19 [facility] 01/22 12:09 Order name: XRAY Chest (1 view); Complete Time: 13:49 [facility] 01/22 12:09 Order name: EKG; Complete Time: 12:09 [facility] 01/22 12:09 Order name: Cardiac monitoring; Complete Time: 13:12 [facility] 01/22 12:09 Order name: EKG - Nurse/Tech; Complete Time: 13:12 [facility] 01/22 12:09 Order name: IV Saline Lock; Complete Time: 13:12 [facility] 01/22 12:09 Order name: Labs collected and sent; Complete Time: 13:12 [facility] 01/22 12:09 Order name: O2 Per Protocol; Complete Time: 13:12 [facility] 01/22 12:09 Order name: O2 Sat Monitoring; Complete Time: 13:12 [facility] 01/22 13:27 Order name: CT Chest Wo Con [facility] 01/22 14:27 Order name: SARS-COV-2 RT PCR EDMS EC:21 Rate is 68 beats/min. Rhythm is regular. QRS [place] is Normal. ND interval is normal. QRS alla interval is normal. QT interval is normal. No Q waves. T waves are Normal. No ST changes noted. Clinical impression: Normal ECG and No evidence of ischemia. Interpreted by me. Reviewed by me. Administered Medications: 12:35 CANCELLED (Duplicate Order): NS 0.9% 500 ml IV at bolus once alla 13:27 CANCELLED (Duplicate Order): NS 0.9% 1000 ml IV at 125 ml/hr continuous alla 14:10 Drug: Cefepime 1 grams Route: IVPB; Rate: 200 ml/hr; Infused Over: 30 mins; Site: left forearm; 15:48 Follow up: Response: No adverse reaction; IV Status: Completed infusion 14:10 Drug: Xopenex 1.25 mg Route: Inhalation; 15:48 Follow up: Response: No adverse reaction 14:10 Drug: AtroVENT Aerosol 0.5 mg Route: Inhalation; 15:47 Follow up: Response: No adverse reaction 14:45 Drug: Zithromax 500 mg Route: IVPB; Infused Over: 1 hrs; Site: left forearm; 15:48 Follow up: Response: No adverse reaction; IV Status: Completed infusion Disposition: 01/23/20 13:33 Hospitalization ordered by Ian Alvarenga for Observation. Preliminary diagnosis are Weakness, Dyspnea, Type 1 diabetes mellitus, End stage renal disease - on HD, Syncope and collapse - Near, Anemia, unspecified, Elevated white blood cell count. - Bed requested for Telemetry/MedSurg (observation). - Status is Observation. - Condition is Fair. - Problem is new. - Symptoms have improved. Signatures: Dispatcher [employer] EDMS Brooke Rodgers RN RN aj1 Emerson Marsh MD MD cha Botello, Elizabeth eb Harris, Amy, RN RN Corrections: (The following items were deleted from the chart) 12:35 12:25 NS 0.9% 500 ml IV at bolus once ordered. alla alla 13:27 12:09 NS 0.9% 1000 ml IV at 125 ml/hr continuous ordered. alla alla 13:51 13:21 CORONAVIRUS+MR.LAB.BRZ ordered. EDMS EDMS 14:20 13:33 Hospitalization Ordered by Ian Alvarenga for Observation. Preliminary diagnosis alla is Weakness; Dyspnea; Type 1 diabetes mellitus; End stage renal disease - on HD; Syncope and collapse - Near. Bed requested for Telemetry/MedSurg (observation). Status is Observation. Condition is Fair. Problem is new. Symptoms have improved. alla 14:27 13:49 CORONAVIRUS ordered. EDOR EDMS 15:10 14:20 01/23/2020 13:33 Hospitalization Ordered by Ian Alvarenga for Observation. eb Preliminary diagnosis is Weakness; Dyspnea; Type 1 diabetes mellitus; End stage renal disease - on HD; Syncope and collapse - Near; Anemia, unspecified; Elevated white blood cell count. Bed requested for Telemetry/MedSurg (observation). Status is Observation. Condition is Fair. Problem is new. Symptoms have improved. alla 16:17 12:09 Urine Dipstick-Ancillary ordered. [facility] 16:20 15:10 01/23/2020 13:33 Hospitalization Ordered by Ian Alvarenga for Observation. Preliminary diagnosis is Weakness; Dyspnea; Type 1 diabetes mellitus; End stage renal disease - on HD; Syncope and collapse - Near; Anemia, unspecified; Elevated white blood cell count. Bed requested for Telemetry/MedSurg (observation). Status is Observation. Condition is Fair. Problem is new. Symptoms have improved. eb
--- NOTE | 2020-01-23 13:34 | ER ---
Nurse's Notes [facility] caret Name: Billy Trejo Age: 64 yrs Sex: Male : 1955 Arrival Date: 01/23/2020 Time: 12:03 Bed 16 Private MD: Diagnosis: Weakness;Dyspnea;Type 1 diabetes mellitus;End stage renal disease-on HD;Syncope and collapse-Near;Anemia, unspecified;Elevated white blood cell count Presentation: 01/22 12:04 Chief complaint: EMS states: He was at dialysis when he suddenly started to feel dizzy aj1 and weak all over. Dialysis staff reports that patient was "less responsive". Patient was talking upon EMS arrival, but appeared drowsy. Patient states that he thinks that his blood pressure dropped. Patient was on dialysis for about 30 minutes before he started feeling this way. FSBS 104 by EMS. Coronavirus screen: Client denies travel out of the [place] in the last 14 days. At this time, the client does not indicate any symptoms associated with coronavirus-19. Ebola Screen: Patient denies travel to an Ebola-affected area in the 21 days before illness onset. Initial Sepsis Screen: Does the patient meet any 2 criteria? Altered Mental Status. No. Patient's initial sepsis screen is negative. Does the patient have a suspected source of infection? No. Patient's initial sepsis screen is negative. Risk Assessment: Do you want to hurt yourself or someone else? Patient reports no desire to harm self or others. 12:04 Method Of Arrival: EMS: [facility] aj 12:04 Acuity: BRAD 3 aj1 Historical: - Allergies: 12:13 Corticosteroids (Glucocorticoids); aj1 - Home Meds: 15:42 amlodipine oral [Active]; carvedilol Oral [Active]; gabapentin Oral [Active]; - PMHx: 12:13 "spot on lung"; Anemia; Dialysis; renal failure; Diabetes - IDDM; High Cholesterol; aj1 Hypertension; Arthritis; CHF; CVA; GERD; GI Bleed; Pneumonia; - Immunization history:: Flu vaccine is not up to date. - Social history:: Smoking status: Patient/guardian denies using tobacco. Screenin:41 Abuse screen: Denies threats or abuse. Nutritional screening: No deficits noted. Tuberculosis screening: No symptoms or risk factors identified. Fall Risk None identified. Assessment: 12:30 General: Appears in no apparent distress. Behavior is calm, cooperative. Pain: Complains of pain in generalized. Neuro: Level of Consciousness is awake, alert, obeys commands, Oriented to person, place, time, situation, Appropriate for age. Cardiovascular: Denies chest pain, Heart tones S1 S2 present Capillary refill < 3 seconds Pulses are palpable in right radial artery and left radial artery Rhythm is sinus rhythm. Respiratory: Airway is patent Respiratory effort is even, unlabored, Respiratory pattern is regular, symmetrical, Breath sounds are coarse bilaterally. Breath sounds with wheezes bilaterally. GI: Abdomen is non-distended, Bowel sounds present X 4 quads. Derm: Skin is intact. Vital Signs: 12:00 BP 128 / 65; Pulse 75; Resp 16; Pulse Ox 100% ; ah 12:04 BP 125 / 62; Pulse 74; Resp 18; Temp 98.7(TE); Pulse Ox 99% on R/A; Weight 79.83 kg aj1 (R); Height 5 ft. 11 in. (180.34 cm) (R); Pain 9/10; 13:00 BP 145 / 72; Pulse 69; Resp 22; Pulse Ox 100% ; ah 14:00 BP 143 / 77; Pulse 66; Resp 18; Pulse Ox 100% ; ah 15:00 BP 150 / 77; Pulse 72; Resp 23; Pulse Ox 100% ; ah 16:00 BP 136 / 75; Pulse 71; Resp 18; Pulse Ox 100% ; ah 12:04 Body Mass Index 24.55 (79.83 kg, 180.34 cm) aj1 ED Course: 12:03 Patient arrived in ED. ds1 12:07 Emerson Marsh MD is Attending Physician. alla 12:10 Triage completed. aj1 12:13 Arm band placed on. aj1 12:15 Maintain EMS IV. Dressing intact. Good blood return noted. Site clean \\T\\ dry. Gauge \\T\\ leobardo 3 site: 20gauge Left wrist. 12:15 Initial lab(s) drawn, by me, sent to lab. X-ray(s) taken. Patient maintains SpO2 jp3 saturation greater than 95% on room air. 12:30 mirror inspector on. Pulse ox on. NIBP on. jp3 12:30 Bed in low position. Call light in reach. Side rails up X 1. Warm blanket given. Verbal jp3 reassurance given. Assisted to bathroom. 12:30 EKG done, by ED staff, reviewed by Emerson Marsh MD. jp3 12:41 XRAY Chest (1 view) In Process Unspecified. EDMS 12:45 First set of blood cultures drawn by ED staff. jp3 13:12 Shruthi Fofana, RN is Primary Nurse. 13:31 Ian Alvarenga is Hospitalizing Provider. alla 14:36 CT Chest Wo Con In Process Unspecified. EDMS 14:39 COVID-19 Sent. 16:18 No provider procedures requiring assistance completed. Patient admitted, IV remains in place. intact. Administered Medications: 12:35 CANCELLED (Duplicate Order): NS 0.9% 500 ml IV at bolus once alla 13:27 CANCELLED (Duplicate Order): NS 0.9% 1000 ml IV at 125 ml/hr continuous alla 14:10 Drug: Cefepime 1 grams Route: IVPB; Rate: 200 ml/hr; Infused Over: 30 mins; Site: left forearm; 15:48 Follow up: Response: No adverse reaction; IV Status: Completed infusion 14:10 Drug: Xopenex 1.25 mg Route: Inhalation; ah 15:48 Follow up: Response: No adverse reaction 14:10 Drug: AtroVENT Aerosol 0.5 mg Route: Inhalation; ah 15:47 Follow up: Response: No adverse reaction 14:45 Drug: Zithromax 500 mg Route: IVPB; Infused Over: 1 hrs; Site: left forearm; 15:48 Follow up: Response: No adverse reaction; IV Status: Completed infusion Outcome: 13:33 Decision to Hospitalize by Provider. [facility] 16:17 Admitted to Med/surg accompanied by [facility], via wheelchair, room 204, with chart, Report called to MARY Thomas 16:17 Condition: good 16:17 Instructed on the need for admit. 16:20 Patient left the ED. Signatures: Dispatcher [employer] Brooke Garcia, RN RN aj1 Emerson Marsh MD MD cha Sanford, Demi ds1 Reid Martinez jp3 Shruthi Fofana, RN RN
[2020-01-23 13:42] LABS: White Blood Cell Scan OK (OK)
[2020-01-23 13:43] LABS: Anisocytosis 1+; Blood Morphology Comment NOTED (NOT SEEN); Platelet Estimate DECR
[2020-01-23] MEDS ORDERED: LEVALBUTEROL 1.25 MG/3 ML NEB ONE (13:47)
[2020-01-23] MEDS ORDERED: AZITHROMYCIN 500 MG INJ IVPB ONE (13:47)
[2020-01-23] MEDS ORDERED: IPRATROPIUM BROM 0.5MG/2.5ML ONE (13:47)
[2020-01-23] MEDS ORDERED: NA CHLORIDE 0.9% 250 ML ONE ×2 (13:48→18:08)
--- NOTE | 2020-01-23 14:31 | P.HP ---
Certification for Inpatient Patient admitted to: Observation With expected LOS: <2 Midnights Practitioner: I am a practitioner with admitting privileges, knowledge of patient current condition, hospital course, and medical plan of care. Services: Services provided to patient in accordance with Admission requirements found in Title 42 Section 412.3 of the Code of Federal Regulations Patient History Date of Service: 01/23/20 Reason for admission: Near syncope, low blood pressure History of Present Illness: 64-year-old gentleman with a history of end-stage renal disease on hemodialysis, history of lung mass, recent multiple admissions for volume overload was brought to the emergency department because patient developed hypotension during dialysis today. Patient reported feeling faint when his blood pressure dropped. There is a report patient received a bolus of normal saline, dialysis was stopped and patient brought to the ED. He was normotensive on arrival to the ED . Blood work shows leukocytosis. No altered mental status reported. Patient is placed under observation for further evaluation. Allergies Corticosteroids (Glucocorticoids) Allergy (Verified 12/28/19 06:39) Anaphylaxis Home Medications: Amlodipine [Norvasc*] 10 mg PO DAILY #30 tab 10/28/19 Losartan Potassium [Cozaar*] 50 mg PO DAILY #30 tablet 01/07/20 Metoprolol Tartrate [Lopressor*] 50 mg PO BID #60 tab 01/07/20 cloNIDine HCL [Clonidine HCl] 0.2 mg PO BID #60 tablet 01/07/20 Cyclobenzaprine [Flexeril*] 10 mg PO TID PRN 01/11/20 Gabapentin 1 cap PO TID 01/11/20 diazePAM [Diazepam] 2 mg PO Q8HP PRN 01/11/20 Diclofenac Sodium [Voltaren] 100 gm TP BID PRN #100 gel..gram. 01/16/20 - Past Medical/Surgical History Diabetic: Yes -: HTN -: IDDM (states does not use insulin, has order for Lantus ) -: Arthritis -: high cholesterol -: cva- 2015 -: anemia -: drug abuse -: CHF -: ESRD- on HD MWF -: blood clot in arm -: GERD -: pneumonia -: colonoscopy -: EGD -: tessio right upper chest -: R knee partial patellectomy w/ patellar tendon repair 06/01/19 Psychosocial/ Personal History: Lives at home - Family History Father -: Cancer Notes: NO REAL HISTORY IS KNOWN OTHER THAN WHAT WAS TOLD TO HIM Mother -: Hypertension, Cancer Notes: NO REAL HISTORY KNOWN OTHER THAN WHAT WAS TOLD TO HIM - Social History Alcohol use: No CD- Drugs: No Caffeine use: Yes Review of Systems Other: Patient complaining of pain in the right knee. Except as documented, all other systems reviewed and negative. Physical Examination - Physical Exam General: Alert, In no apparent distress, Oriented x3 HEENT: Mucous membr. moist/pink Neck: Supple, JVD not distended Respiratory: Clear to auscultation bilaterally, Normal air movement Cardiovascular: No edema, Regular rate/rhythm, Normal S1 S2 Capillary refill: <2 Seconds Gastrointestinal: Normal bowel sounds, Soft and benign, Non-distended, No tenderness Musculoskeletal: No swelling Integumentary: Other (Bilateral lower extremity xerosis) Neurological: Normal speech, Normal strength at 5/5 x4 extr - Studies Laboratory Data (last 24 hrs) 01/23/20 12:33: WBC 16.2 H D, Hgb 8.7 L, Hct 27.6 L, Plt Count 84 L D 01/23/20 12:33: Sodium 141, Potassium 3.6, BUN 36 H D, Creatinine 6.42 H*, Glucose 117 H, Magnesium 2.2, Total Bilirubin 0.3, AST 34, ALT 25, Alkaline Phosphatase 101, Lipase 184 Assessment and Plan - Problems (Diagnosis) (1) Syncope Current Visit: Yes Status: Acute (2) Leukocytosis Current Visit: No Status: Acute (3) Lung mass Current Visit: No Status: Acute (4) ESRD (end stage renal disease) on dialysis Onset Date: 03/13/18 Current Visit: No Status: Chronic - Plan Place patient under observation Recent cardiac catheterization demonstrated mild mid-distal LAD disease otherwise normal coronary arteries. Syncope related to hypotension from dialysis. Nephrology consult. Patient may need dry with adjustment or readjustment of his antihypertensives. Hold his antihypertensives for now. Pain management with a pain in the knee pain. CT chest ordered to follow up lung mass. - Advance Directives Does patient have a Living Will: No Does patient have a Durable POA for Healthcare: No
--- NOTE | 2020-01-23 14:59 | RAD REPORT ---
EXAM DESCRIPTION: CT - Thorax Wo Con - 01/23/2020 2:35 pm CLINICAL HISTORY: mass, nodule, pna, chf COMPARISON: Thorax W/ Con dated 05/27/2018; Thorax W/ Con dated 06/14/2016; Chest For Pe Angio dated ; Chest Single View dated 01/23/2020; Chest Single View dated 10/25/2019 TECHNIQUE: Axial 5 mm thick images of the chest were obtained without IV contrast. All CT scans are performed using dose optimization technique as appropriate and may include automated exposure control or mA/KV adjustment according to patient size. FINDINGS: In the left upper lobe a 2.7 centimeter AP x 2.2 centimeter TR focal mass density is prese nt. There is a new 5 millimeter noncalcified nodule just lateral to this mass near the pleura. This m ass dates back to at least 2015. There has been a slow enlargement in size over this long duration. T here are few small cystic or cavitary areas at the inferior margin. Bilateral atelectasis changes are present along each posterior lung field. Trace amounts of ground-gl ass opacification are seen in the right upper lobe. No pleural effusion, pleural thickening or pneumothorax. No abnormal mediastinal or hilar masses or lymphadenopathy seen. Dense hilar calcifications are prese nt on the left. No pericardial thickening or effusion. Assessment is limited in the absence of IV con trast. No chest wall mass or abnormal axillary lymphadenopathy. IMPRESSION: A 2.7 x 2.2 centimeter mass in the left upper lobe is present with irregular margins and small areas of cavitation or cystic change along the inferior aspect. The mass dates back to at least 2015 but has shown may slow increase in size. A slow-growing maligna ncy cannot be excluded. A chronic inflammatory process or area of recurrent infiltrate and scarring w ould be possible. Atypical pneumonia would be a consideration. The PET-CT study could be performed 4-6 weeks after treatment of any suspected infectious/inflammator y process. Bronchoalveolar carcinoma can be negative on PET imaging.
[2020-01-23] MEDS ORDERED: VANCOMYCIN/NS 1 gm 1 GM/250 ML BAG IVPB SCH (16:49)
[2020-01-23] MEDS ORDERED: HEPARIN 5000 UNIT/ML 1 ML VIAL SQ SCH (17:00)
[2020-01-23] MEDS ORDERED: VANCOMYCIN/NS 1 gm 1 GM/250 ML BAG IVPB ONE (17:26)
[2020-01-23 17:34] VITALS: BMI 25.0
[2020-01-23] MEDS ORDERED: CEFEPIME 1 GM/VIAL IV SCH (18:00)
[2020-01-23] MEDS ORDERED: VANCOMYCIN 1 GM/VIAL ONE ×2 (18:08→18:14)
[2020-01-23] MEDS ORDERED: WATER FOR INJ,STERILE 10 ML IV SCH (21:00)
--- NOTE | 2020-01-24 01:22 | CON ---
Date of Consultation: 01/23/2020 Chief Complaint: End-stage renal disease, on dialysis. History Of Present Illness: The patient was admitted to the hospital because of hypotension and near-syncope episode. The patient is 64-year-old man with history of end-stage renal disease, on hemodialysis, history of lung mass, recently he had multiple admissions for volume overload. Today, he was brought to the hospital after dialysis. He developed hypotension, generalized weakness, and workup is started to rule out sepsis and bacteremia. The patient received normal saline bolus with dialysis treatment to prevent intradialytic hypotension. Subsequently on arrival to the emergency room, he was normotensive. Blood work showed leukocytosis and he is undergoing workup for sepsis and septic shock. He was evaluated for acute coronary syndrome, troponin level was checked. Review of Systems: General: Complains of generalized weakness. Denies fever or chills. Eyes: Denies vision changes. Ears, Nose, Mouth and Throat: Denies sore throat or earache. Respiratory: Denies PND or orthopnea. Cardiovascular: Denies chest pain or palpitation. Neurologic: Had an episode of generalized weakness. Denies loss of consciousness. All other systems reviewed and all are negative. Past Medical History: Hypertension, insulin-dependent diabetes mellitus, arthritis, hypercholesterolemia, CVA, anemia, drug abuse, congestive heart failure, diastolic dysfunction, hypertensive heart and kidney disease, DVT, GERD, history of pneumonia, lung mass, colonoscopy, EGD, Tesio right upper chest, right knee surgery. Family History: Father with cancer, origin of the cancer and history of his father's medical complication are not available. Mother had a cancer, there is no information about origin of the cancer, the patient cannot provide family history. Social History: Denies tobacco, alcohol, or illicit drugs. Physical Examination: General: The patient is awake and alert, follows commands. Eyes: Anicteric sclerae. EOMI. Ears, Nose, Mouth and Throat: Oral mucosa moist. No pallor. Neck: Supple, no bruits. Lungs: A few rhonchi. No Wheezing Heart: S1 and S2. No pericardial friction rub Abdomen: Soft, benign. No rebound Extremities: No edema. No clubbing , no cyanosis SKIN: no oozing , no bleeding Laboratory Data: WBC 16.2, hemoglobin 8.7, hematocrit 27.6, and platelets 84,000. Potassium 3.6, sodium 141, creatinine 6.42, glucose 117, magnesium 2.2, lipase 194. Impression And Plan: 1. End-stage renal disease. The patient had dialysis done today, received IV fluids to control hypovolemia, the patient although needs to be ruled out for acute coronary syndrome and sepsis. 2. Syncope related to hypotension, likely secondary to hypovolemic state versus sepsis, workup is pending to rule out bacteremia. Leukocytosis is elevated and the patient will have antibiotics for possible sepsis and pneumonia. 3. Lung mass, per primary team. 4. Anemia of chronic kidney disease. Monitor hemoglobin level. Adjust SCARLETT accordingly. ANSLEY/MODTrisha Voice ID: [id number] Report ID: [id number] KATIE
[2020-01-24] MEDS: HYDROCODONE/APAP 5/325 MG TAB PO PRN ×3 (04:26→20:24)
[2020-01-24 06:39] LABS: Basophils % 0.4 % (0-1.3); Hematocrit 25.6 % (39.6-49.0); Lymphocytes % 7.3 % (15.3-44.8); MPV 10.2 fL (7.6-11.3); RBC Red Blood Cell Count 2.69 M/uL (4.33-5.43)
[2020-01-24 07:13] LABS: Potassium 4.7 mmol/L (3.5-5.1)
[2020-01-24 07:30] LABS: Urine Appearance CLEAR; Urine Bilirubin NEGATIVE (NEG); Urine Blood NEGATIVE (NEG); Urine Color YELLOW; Urine Glucose NEGATIVE (NEG); Urine Protein 3+ (NEG); Urine Specific Gravity 1.015 (1.005-1.030); Urine Urobilinogen 0.2 mg/dL (0.2-1.0); Urine pH 7.5 (5.0-7.0)
[2020-01-24 07:54] LABS: Urine Microscopic Reflex ORDER UMIC
[2020-01-24 07:55] LABS: Urine Bacteria <20 /HPF (NONE SEEN); Urine RBC <5 /HPF (NONE SEEN)
[2020-01-24] MEDS ORDERED: HOME MED 1 EA UNK (Diclofenac Sodium [Voltaren] 1 APP) TOP PRN (07:55)
[2020-01-24 07:56] LABS: Urine Culture Reflex Order NOT NEEDED
[2020-01-24 08:02] LABS: Barbiturates NEGATIVE (NEGATIVE); Benzodiazepines NEGATIVE (NEGATIVE); Cocaine POSITIVE (NEGATIVE); METHAMPHETAM NEGATIVE (NEGATIVE); Methadone NEGATIVE (NEGATIVE); Opiates NEGATIVE (NEGATIVE); Phencyclidine NEGATIVE (NEGATIVE); THC Cannibis NEGATIVE (NEGATIVE)
[2020-01-24] MEDS: AMLODIPINE 10 MG TAB PO SCH ×2 (09:00→11:53)
[2020-01-24] MEDS: GABAPENTIN 400 MG CAP PO SCH ×3 (09:30→20:25)
[2020-01-24] MEDS: cloNIDine HCL 0.1 MG TAB PO SCH ×2 (09:30→20:25)
[2020-01-24] MEDS ORDERED: FOLIC ACID 1 MG TABLET PO ONE (09:44)
[2020-01-24] MEDS ORDERED: EPOETIN ALFA 20,000 UNIT/1 ML VIAL SQ SCH (09:45)
--- NOTE | 2020-01-24 09:45 | EKG ---
Test Date: 2020-01-23 Test Time: 12:41:16 [employer] Tacking Machine Operator: SKY MEASUREMENT RESULTS: Intervals: Rate: 68 LA: 190 QRSD: 88 QT: 460 QTc: 489 [place]: P: 60 LA: 190 QRS: -38 T: 46 INTERPRETIVE STATEMENTS: Normal sinus rhythm Left axis deviation Septal infarct, age undetermined Abnormal ECG Compared to ECG 01/11/2020 02:23:57 No significant changes Electronically Signed On 01-24-20 09:44:18 CDT by Ruperto Alvarado
--- NOTE | 2020-01-24 10:55 | P.PN ---
Subjective Date of Service: 01/24/20 Chief Complaint: Near syncope, low blood pressure Patient only complaint is right knee cap pain. His blood pressure has been stable and actually hypertensive today. Patient seen and evaluated by nephrology. Physical Examination - Vital Signs Temperature: 97.8 F Blood Pressure: 168/81 Pulse: 73 Respirations: 16 Pulse Ox (%): 99 - Physical Exam General: Alert, In no apparent distress Respiratory: Clear to auscultation bilaterally, Normal air movement Cardiovascular: Regular rate/rhythm, Normal S1 S2, Edema (Mild bilateral lower extremity edema) Gastrointestinal: Normal bowel sounds, Soft and benign, No tenderness Integumentary: Other (Bilateral lower extremities xerosis) - Studies Laboratory Data (last 24 hrs) 01/23/20 12:33: WBC 16.2 H D, Hgb 8.7 L, Hct 27.6 L, Plt Count 84 L D 01/23/20 12:33: Sodium 141, Potassium 3.6, BUN 36 H D, Creatinine 6.42 H*, Glucose 117 H, Magnesium 2.2, Total Bilirubin 0.3, AST 34, ALT 25, Alkaline Phosphatase 101, Lipase 184 Assessment And Plan - Current Problems (Diagnosis) (1) Syncope Current Visit: Yes Status: Acute (2) Leukocytosis Current Visit: No Status: Acute (3) Lung mass Current Visit: No Status: Acute (4) ESRD (end stage renal disease) on dialysis Onset Date: 03/13/18 Current Visit: No Status: Chronic - Plan Recent cardiac catheterization demonstrated mild mid-distal LAD disease other jung normal coronary arteries. Syncope related to hypotension from dialysis. Patient may need dry with adjustment or readjustment of his antihypertensives. Resume antihypertensives stepwise. Pain management with a pain in the knee pain. CT chest report slow-growing lung mass. No pneumonia. Leukocytosis is trending down. Continue antibiotics and follow blood culture. May need PET scan as an outpatient. Nephrology to follow for dialysis and BP management.
[2020-01-24] MEDS ORDERED: VANCOMYCIN 1.5 GM in NA CHLORIDE 0.9% 500 ML IVPB ONE (11:00)
[2020-01-24] MEDS ORDERED: VANCOMYCIN/NS 1 gm 1 GM/250 ML BAG IVPB SCH (11:00)
[2020-01-24] MEDS ORDERED: VANCOMYCIN 500 MG in NA CHLORIDE 0.9% 100 ML IVPB ONE (12:00)
[2020-01-24] MEDS ORDERED: GLUCAGON 1 MG/VIAL IM PRN (15:34)
[2020-01-24] MEDS ORDERED: D50W 25 GM/50 ML SYRINGE/VIAL IV PRN (15:34)
[2020-01-24] MEDS: INSULIN -REGULAR HUMAN 50 UNIT/0.5 ML ML SQ SCH ×2 (16:09→20:24)
[2020-01-24] MEDS: CYCLOBENZAPRINE 10 MG TAB PO PRN (20:37)
[2020-01-24] MEDS ORDERED: CEFEPIME/SWI 1gm 10 ML IV SCH (21:00)
[2020-01-25] MEDS: HYDROCODONE/APAP 5/325 MG TAB PO PRN ×3 (01:59→14:40)
[2020-01-25] MEDS: CYCLOBENZAPRINE 10 MG TAB PO PRN (05:47)
[2020-01-25 07:28] LABS: Potassium 5.2 mmol/L (3.5-5.1)
[2020-01-25] MEDS: INSULIN -REGULAR HUMAN 50 UNIT/0.5 ML ML SQ SCH ×2 (07:30→11:30)
[2020-01-25 07:32] LABS: Absolute Lymphocytes (CBC) 1.2 K/uL (0.7-4.9); Basophils % 0.3 % (0-1.3); Hematocrit 25.9 % (39.6-49.0); Lymphocytes % 9.3 % (15.3-44.8); RBC Red Blood Cell Count 2.73 M/uL (4.33-5.43)
[2020-01-25] MEDS ORDERED: FE SULF/FA/VIT B COMP & C TAB PO SCH (08:00)
[2020-01-25 08:35] VITALS: O2SAT 96
[2020-01-25] MEDS: cloNIDine HCL 0.1 MG TAB PO SCH (08:35)
[2020-01-25] MEDS: GABAPENTIN 400 MG CAP PO SCH ×2 (08:36→14:41)
[2020-01-25] MEDS: AMLODIPINE 10 MG TAB PO SCH (08:36)
--- NOTE | 2020-01-25 11:06 | P.DS ---
Admission Date: 01/23/20 Discharge Date: 01/25/20 Disposition: ROUTINE DISCHARGE Discharge Condition: FAIR Reason for Admission: Near syncope, low blood pressure - Problems (1) Syncope Current Visit: Yes Status: Acute (2) Leukocytosis Current Visit: No Status: Acute (3) Lung mass Current Visit: No Status: Acute (4) ESRD (end stage renal disease) on dialysis Onset Date: 03/13/18 Current Visit: No Status: Chronic Brief History of Present Illness: 64-year-old gentleman with a history of end-stage renal disease on hemodialysis, history of lung mass, recent multiple admissions for volume overload was brought to the emergency department because patient developed hypotension during dialysis today. Patient reported feeling faint when his blood pressure dropped. There is a report patient received a bolus of normal saline, dialysis was stopped and patient brought to the ED. He was normotensive on arrival to the ED . Blood work shows leukocytosis. No altered mental status reported. Patient was placed under observation for further evaluation. Hospital Course: Patient initial troponin in the ED was negative. Noted patient had a recent cardiac catheterization which showed only mild LAD disease, otherwise normal coronary arteries. He was placed on IV vancomycin and cefepime for the possibility of sepsis. Blood cultures yielded no growth. Patient did not experience any fever. Leukocytosis trended down. Patient was not hypotensive during the hospital stay. He was rather hypertension. Patient seen and evaluated by nephrology team. Sepsis as a cause of his hypotension is unlikely. It could be related to his antihypertensives and fluid removal during dialysis. The patient underwent hemodialysis with no issues today. Noted his urine toxicology screen was positive for cocaine. He is discharged to follow with his stamp maker as an outpatient. He is prescribed empiric oral doxycycline. Vital Signs/Physical Exam: Temp Pulse Resp BP Pulse Ox 97.6 F 57 17 193/89 H 100 01/25/20 08:00 01/25/20 08:36 01/25/20 08:36 01/25/20 08:36 01/25/20 08:36 General: Alert, In no apparent distress HEENT: Normocephalic, Mucous membr. moist/pink Respiratory: Clear to auscultation bilaterally, Normal air movement Cardiovascular: No edema, Regular rate/rhythm, Normal S1 S2 Gastrointestinal: Normal bowel sounds, Soft and benign, No tenderness Integumentary: Other (Bilateral lower extremity xerosis) Neurological: Normal speech, Normal strength at 5/5 x4 extr Laboratory Data at Discharge: WBC 12.6 K/uL (4.3-10.9) H 01/25/20 07:23 Hgb 8.4 g/dL (13.6-17.9) L 01/25/20 07:23 Hct 25.9 % (39.6-49.0) L 01/25/20 07:23 Plt Count 97 K/uL (152-406) L 01/25/20 07:23 Sodium 143 mmol/L (136-145) 01/25/20 06:52 Potassium 5.2 mmol/L (3.5-5.1) H 01/25/20 06:52 BUN 52 mg/dL (7-18) H 01/25/20 06:52 Creatinine 8.62 mg/dL (0.55-1.3) H* 01/25/20 06:52 Glucose 129 mg/dL (74-106) H 01/25/20 06:52 Magnesium 2.2 mg/dL (1.8-2.4) 01/23/20 12:33 Total Bilirubin 0.3 mg/dL (0.2-1.0) 01/23/20 12:33 AST 34 U/L (15-37) 01/23/20 12:33 ALT 25 U/L (12-78) 01/23/20 12:33 Alkaline Phosphatase 101 U/L (45-117) 01/23/20 12:33 Lipase 184 U/L (73-393) 01/23/20 12:33 Home Medications: Amlodipine Besylate [Norvasc] 10 mg PO DAILY 01/24/20 Clonidine HCl [Catapres*] 0.2 mg PO BID 01/24/20 Cyclobenzaprine [Flexeril*] 10 mg PO TID PRN 01/24/20 Diclofenac Sodium [Voltaren] 100 gm TOP BID PRN 01/24/20 Gabapentin [Neurontin*] 400 mg PO TID 01/24/20 Losartan Potassium [Cozaar*] 50 mg PO DAILY 01/24/20 Metoprolol Tartrate [Lopressor*] 50 mg PO BID 01/24/20 Doxycycline Hyclate 100 mg PO BID #14 tablet 01/25/20 Iron/FA/Vit B-Com W/C [Hemocyte Plus*] 1 tab PO DAILY WITH BREAKFAST #30 tab 01/25/20 New Medications: Doxycycline Hyclate 100 mg PO BID #14 tablet Iron/FA/Vit B-Com W/C [Hemocyte Plus*] 1 tab PO DAILY WITH BREAKFAST #30 tab Diet: Renal Activity: Ad emilie Followup: Irvin Cruz MD [ACTIVE - CAN ADMIT] - 1-2 Weeks
[2020-01-25] MEDS ORDERED: VANCOMYCIN/NS 1 gm 1 GM/250 ML BAG IVPB SCH (11:45)
--- NOTE | 2020-01-25 15:36 | PN ---
Date of Progress Note: 01/24/2020 Chief Complaint: Hypotension, near syncope. Subjective: The patient has history of end-stage renal disease hypertensive heart and kidney disease. He was undergoing dialysis and developed hypotension. He received IV normal saline for blood pressure support. He was found to have leukocytosis. Workup is initiated for possible sepsis. Syncope, presyncope workup is pending per primary team. The patient had workup done to rule out acute coronary syndrome. Review of Systems: Denies PND or orthopnea. Physical Examination: Lungs: Diminished breath sounds at bases. Heart: S1, S2. Abdomen: Soft, benign. Extremities: Slight edema. Laboratory Data: Sodium 141, potassium 3.6, BUN 36, creatinine 6.42. Impression And Plan: 1. Syncope, presyncope. The patient will have further workup. Blood pressure is stabilizing. 2. Leukocytosis, possible infection and sepsis. Continue antibiotics. Monitor culture. 3. End-stage renal disease. The patient will have renal panel evaluated tomorrow. We will check potassium level today. Blood work was stable. 4. Anemia of chronic kidney disease. Continue SCARLETT. 5. Renal osteodystrophy. Continue renal diet and binders. I spent total 36 min including 26 min to coordinate care plan. ANSLEY/ZULEIMA Voice ID: [id number] Report ID: [id number] KATIE
[2020-01-25 17:55] VITALS: BP 186/83; TEMP 97.3
--- NOTE | 2020-01-26 04:23 | PN ---
Date of Progress Note: 01/25/2020 Chief Complaint: End-stage renal disease, fluid overload, history of hypotension, near syncope. The patient received dialysis today for metabolic clearance and to treat mild hyperkalemia. Ultrafiltration was adjusted and titrated down because of intradialytic hypotension. The patient has history of noncompliance with p.o. fluid restriction. He is admitted to the hospital because of leukocytosis and hypotension. Blood pressure stabilized with adjustment of fluid removal during dialysis. Review of Systems: Denies PND or orthopnea. Physical Examination: Lungs: Diminished breath sounds at bases. Heart: S1, S2. Abdomen: Soft, benign. Extremities: Slight edema. Impression And Plan: 1. Syncope, presyncope. Workup per primary team. 2. Intradialytic hypotension. Blood pressure stabilized after adjustment of ultrafiltration goal and the patient remained hemodynamically stable. 3. Leukocytosis. Antibiotics per primary team. 4. End-stage renal disease. The patient will continue dialysis 3 times per week. 5. Renal osteodystrophy. Continue renal diet and binders. I spent total 36 min incluidng 25 min to coordinate care plan. ANSLEY/ZULEIMA Voice ID: [id number] Report ID: [id number] KATIE
[2020-01-28 04:47] LABS: HBsAG Nonreactive (Nonreactive)
[2020-01-29 17:08] LABS: Hep C Virus RNA (PCR)log 5.75 log IU/mL
== END 2020-01-25 17:15 | disposition home health service (06) ==
LOC: ER 12:02 → ERHOLD 14:44 → 2ND 16:08
PROVIDERS: ADMIT Internal Medicine; ATTEND Internal Medicine
DX: I95.3 Hypotension of hemodialysis (principal); D72.829 Elevated white blood cell count, unspecified; I13.2 Hypertensive heart and chronic kidney disease with heart failure and with stage 5 chronic kidney disease, or end stage renal disease; I50.30 Unspecified diastolic (congestive) heart failure; E10.22 Type 1 diabetes mellitus with diabetic chronic kidney disease; N18.6 End stage renal disease; Z99.2 Dependence on renal dialysis; D63.1 Anemia in chronic kidney disease; R91.8 Other nonspecific abnormal finding of lung field; E86.1 Hypovolemia; E87.5 Hyperkalemia; N25.0 Renal osteodystrophy; M25.561 Pain in right knee; E78.00 Pure hypercholesterolemia, unspecified; I82.629 Acute embolism and thrombosis of deep veins of unspecified upper extremity; I25.10 Atherosclerotic heart disease of native coronary artery without angina pectoris; K21.9 Gastro-esophageal reflux disease without esophagitis; M19.90 Unspecified osteoarthritis, unspecified site; F14.10 Cocaine abuse, uncomplicated; Z91.19 Patient's noncompliance with other medical treatment and regimen; Z20.828 Contact with and (suspected) exposure to other viral communicable diseases; Z79.4 Long term (current) use of insulin; Z88.8 Allergy status to other drugs, medicaments and biological substances; Z86.73 Personal history of transient ischemic attack (TIA), and cerebral infarction without residual deficits; Z87.01 Personal history of pneumonia (recurrent); Z80.9 Family history of malignant neoplasm, unspecified; Z82.49 Family history of ischemic heart disease and other diseases of the circulatory system
CPT/HCPCS: 96365; 93005; 87040 ×2; 85025 ×3; 80048 ×3; 36415 ×2; 83735; 82947 ×9; 80076; 80307 ×8; 83605; 80202; 84484; 82728; 83690; 83540; 86704; 84145; 83880; 87340; 86706; 84466; 86803; 87522; 71250; 71045; 90935; 94760 ×5; 99285; U0003; J0456; J3370 ×4; Q4081; J1644; J0692; J7050 ×2; G0378 ×4; 81003; 81015; J7040